=== PATIENT | male | born 1955 | race Caucasian/White ===

== ENCOUNTER → 2021-12-12 | Outpatient (CLI) | payer MEDICARE, OTHER, SELFPAY ==
[2021-12-12 09:03] LABS: Bacteria 0 SEEN /hpf (None Seen); Red Blood Cells-Urine 0 SEEN /hpf (0-5)
[2021-12-12 10:11] LABS: Color, Urine Yellow (Yellow); Glucose, Dipstick Normal (Normal); Ketone-Dipstick Negative (Negative); Leukocyte Esterase-Dipstick Negative /ul (Negative); Nitrite-Dipstick Negative (Negative); Occult Blood-Urine 10 /ul (Negative); Protein-Dipstick 15 mg/dl (Negative); Urine Bilirubin Dipstick Negative (Negative); Urine Clarity Clear (Clear); Urine Urobilinogen Normal (Normal)
[2021-12-12 10:13] LABS: Absolute Lymphocyte Count 1.29 X10^3/uL (0.83-4.51); Absolute Neutrophil Count 5.6 X10^3/uL (2.0-7.7); Basophil# 0.04 X10^3/uL; Basophil% 0.5 % (0-1); Eosinophil# 0.13 X10^3/uL; Eosinophils% 1.6 % (0-5); Hematocrit 44.3 % (40-54); Hemoglobin 14.6 g/dL (13.0-16.5); Lymphocyte # 1.29 X10^3/ul (0.83-4.51); Lymphocyte % 15.7 % (19-41); Mean Corpuscular Volume 91.2 fL (80-94); Mean Platelet Vol. 10.7 fl (6.2-12.0); Monocyte# 1.11 X10^3/uL; Monocyte% 13.5 % (0-10); NRBC Flagged by Analyzer 0 % (0-5); Neutrophil # 5.64 X10^3/uL (2.7-7.7); Neutrophil % 68.5 % (47-70); Platelet Count 351 K/mm3 (150-450); RBC Distribution Width CV 17.5 % (11.6-14.6); Red Blood Count 4.86 M/mm3 (4.6-6.2); White Blood Count 8.2 K/mm3 (4.4-11.0)
[2021-12-12 10:26] LABS: Mucous, Urine 3+ /hpf (<or=2+); Squamous Epithelial Cells - UA 0-5 SEEN /hpf (0-5); White Blood Cells 0-5 SEEN /hpf (0-5)
[2021-12-12 10:27] LABS: Erythrocyte Sedimentation Rate 9 mm/hr (0-20)
[2021-12-12 10:43] LABS: ALB/GLOB Ratio 1.1 RATIO (0.9-2.4); AST(SGOT) 13 U/L (15-37); Alanine Aminotransfer ALT/SGPT 16 U/L (16-61); Albumin, Serum 3.8 g/dL (3.2-5.0); Alkaline Phosphatase 87 U/L (45-117); Anion Gap 5 (5-15); BUN 23 mg/dL (7-18); BUN/Creat Ratio 23.4 RATIO (10-20); CPK Total, Creatine Kinase 64 U/L (39-308); Calcium,Total 9.1 mg/dL (8.5-10.1); Chloride 111 mmol/L (98-107); Creatinine, Serum 0.98 mg/dL (0.70-1.30); EST Glomerular Filtration Rate 81 mL/min (>60); Est Glom Filt Rate - Afr Amer 98 mL/min (>60); Globulin 3.4 g/dL (2.2-4.2); Glucose 90 mg/dL (74-106); Protein, Total 7.2 g/dL (6.4-8.2); Sodium Level 141 mmol/L (136-145)
[2021-12-13 17:26] LABS: Aldolase 2.6 U/L (3.3-10.3)
[2021-12-19 08:48] LABS: Anti-Nuclear Antibody Test Negative (.); Anti-dsDNA Ab 1 IU/mL (0-9)
== END | disposition home or self-care (01) ==
PROVIDERS: PCP Family Medicine
DX: L30.8 Other specified dermatitis (principal)
CPT/HCPCS: 36415; 80053; 81001; 82085; 82550; 85025; 85652; 86038; 86225

== ENCOUNTER → 2022-01-28 | Outpatient (CLI) | payer MEDICARE, OTHER, SELFPAY ==
[2022-01-28 17:58] LABS: Color, Urine Yellow (Yellow); Glucose, Dipstick Normal (Normal); Ketone-Dipstick Negative (Negative); Leukocyte Esterase-Dipstick Negative /ul (Negative); Nitrite-Dipstick Negative (Negative); Occult Blood-Urine 10 /ul (Negative); Protein-Dipstick 15 mg/dl (Negative); Urine Bilirubin Dipstick Negative (Negative); Urine Clarity Clear (Clear); Urine Urobilinogen Normal (Normal)
[2022-01-28 18:02] LABS: Absolute Neutrophil Count 11.6 X10^3/uL (2.0-7.7); Basophil# 0.08 X10^3/uL; Basophil% 0.5 % (0-1); Eosinophil# 0.25 X10^3/uL; Eosinophils% 1.7 % (0-5); Hematocrit 45.6 % (40-54); Hemoglobin 14.8 g/dL (13.0-16.5); Mean Corp Hgb Conc 32.5 g/dL (32-36); Mean Corpuscular Hgb 30.5 pg (27.0-32.0); Mean Platelet Vol. 10.8 fl (6.2-12.0); Monocyte# 1.46 X10^3/uL; Monocyte% 9.8 % (0-10); NRBC Flagged by Analyzer 0 % (0-5); Neutrophil # 11.56 X10^3/uL (2.7-7.7); Neutrophil % 77.5 % (47-70); Platelet Count 414 K/mm3 (150-450); RBC Distribution Width CV 15.3 % (11.6-14.6); RBC Distribution Width SD 53.2 fl (35.1-43.9); Red Blood Count 4.85 M/mm3 (4.6-6.2); White Blood Count 14.9 K/mm3 (4.4-11.0)
[2022-01-28 18:36] LABS: Protein, Urine (Random) 31.9 mg/dL (<11.9); Protein:Creat Ratio 173 mg/g CRE (0-200)
[2022-01-28 18:41] LABS: ALB/GLOB Ratio 1.1 RATIO (0.9-2.4); AST(SGOT) 22 U/L (15-37); Alanine Aminotransfer ALT/SGPT 26 U/L (16-61); Albumin, Serum 3.8 g/dL (3.2-5.0); Alkaline Phosphatase 91 U/L (45-117); Anion Gap 8 (5-15); BUN 22 mg/dL (7-18); BUN/Creat Ratio 22.2 RATIO (10-20); CPK Total, Creatine Kinase 78 U/L (39-308); Calcium,Total 9.4 mg/dL (8.5-10.1); Chloride 110 mmol/L (98-107); Creatinine, Serum 0.99 mg/dL (0.70-1.30); EST Glomerular Filtration Rate 80 mL/min (>60); Est Glom Filt Rate - Afr Amer 97 mL/min (>60); Globulin 3.6 g/dL (2.2-4.2); Glucose 96 mg/dL (74-106); Protein, Total 7.4 g/dL (6.4-8.2); Sodium Level 142 mmol/L (136-145)
[2022-01-31 17:54] LABS: Aldolase 3.9 U/L (3.3-10.3)
== END | disposition home or self-care (01) ==
PROVIDERS: PCP Family Medicine; Referring Provider Internal Medicine Rheumatology; Visit Provider Internal Medicine Rheumatology
DX: L30.8 Other specified dermatitis (principal); G35 Multiple sclerosis; F32.A Depression, unspecified; R51.9 Headache, unspecified
CPT/HCPCS: 36415; 80053; 81002; 82085; 82550; 82570; 84156; 85025

== ENCOUNTER 2023-11-21 08:53 | Observation (INO) | payer MEDICARE, OTHER, SELFPAY ==
[2023-11-21] VITALS (12 sets, daily range): BP systolic 127–146; BP diastolic 72–86; PULSE 68–91; RESP 14–20; TEMP 36.4–36.8; O2SAT 97–99; BMI 27.1; BMI 25.0
--- NOTE | 2023-11-21 09:07 | EKG12_ITS ---
Test Reason : CP Blood Pressure : / mmHG Vent. Rate : 083 BPM Atrial Rate : 083 BPM P-R Int : 140 ms QRS Dur : 080 ms QT Int : 372 ms P-R-T Axes : 028 -34 062 degrees QTc Int : 437 ms Normal sinus rhythm Left axis deviation Nonspecific ST and T wave abnormality Abnormal ECG Confirmed by MARCIO CARRILLO, DARLENE ([id number]), supervising editor news reel GUILLERMINA ALEXANDRE ([id number]) on 11/24/2023 9:30:30 AM Referred By: JESSICA Confirmed By:CEASAR BUCKLEY MD
[2023-11-21] MEDS: Aspirin 81 MG TAB.CHEW 324 MG PO (09:11)
--- NOTE | 2023-11-21 09:12 | RAD_ITS ---
INDICATION: chest pain EXAMINATION/TECHNIQUE: X-RAY - XR Chest 1 View COMPARISON: No relevant prior comparison study available FINDINGS: LINES/DEVICES: None. LUNGS: The lungs are well expanded. No consolidation, edema or effusion. No pneumothorax. MEDIASTINUM AND CARDIOVASCULAR STRUCTURES: Cardiac silhouette not enlarged. Central airways and mediastinal contour are unremarkable. BONES AND SOFT TISSUES: No acute abnormality. RAD/Chest 1 View (Portable) IMPRESSION: No acute pulmonary finding. Electronically Signed: Marco Mohr MD at 9:30 EDT ,
[2023-11-21 09:23] LABS: Absolute Lymphocyte Count 1.64 X10^3/uL (0.83-4.51); Absolute Neutrophil Count 6.9 X10^3/uL (2.0-7.7); Basophil# 0.07 X10^3/uL; Basophil% 0.7 % (0-1); Eosinophil# 0.25 X10^3/uL; Eosinophils% 2.5 % (0-5); Hematocrit 38.7 % (40-54); Hemoglobin 11.5 g/dL (13.0-16.5); Lymphocyte # 1.64 X10^3/ul (0.83-4.51); Lymphocyte % 16.4 % (19-41); Mean Corp Hgb Conc 29.7 g/dL (32-36); Mean Corpuscular Hgb 25.1 pg (27.0-32.0); Mean Corpuscular Volume 84.3 fL (80-94); Monocyte# 1.09 X10^3/uL; Monocyte% 10.9 % (0-10); NRBC Flagged by Analyzer 0 % (0-5); Neutrophil # 6.89 X10^3/uL (2.7-7.7); Neutrophil % 69.1 % (47-70); Platelet Count 522 K/mm3 (150-450); RBC Distribution Width SD 49.2 fl (35.1-43.9); Red Blood Count 4.59 M/mm3 (4.6-6.2)
[2023-11-21 09:33] LABS: Anion Gap 4 (5-15); BUN 20 mg/dL (7-18); BUN/Creat Ratio 18.3 RATIO (10-20); Calcium,Total 9.2 mg/dL (8.5-10.1); Chloride 112 mmol/L (98-107); Creatinine, Serum 1.09 mg/dL (0.70-1.30); EST Glomerular Filtration Rate 71 mL/min (>60); Est Glom Filt Rate - Afr Amer 86 mL/min (>60); Estimated Creatinine Clearance 66.97 ml/min; Glucose 117 mg/dL (74-106); Potassium 3.9 mmol/L (3.5-5.1); Sodium Level 141 mmol/L (136-145); Troponin-I HS (w/2H Reflex) 7 pg/mL (3.0-78.0)
--- NOTE | 2023-11-21 09:57 | EDS_ITS ---
HPI History of Present Illness Chief Complaint: Chest Pain Detail of Chief Complaint: Chest pressure yesterday and today Informant: patient and spouse/S.O. Onset/Context/Timing Onset: Today and Yesterday Activity at onset: sudden Timing: Continuous (Today) and Intermittent (Yesterday) Quality: Positive for Pressure Location: Left Chest (Radiating to left shoulder with numbness of left upper extremity) Current Severity: Mild Maximum Severity: Severe Worsened By: Nothing Relieved By: Nothing Associated Symptoms: Positive for Nausea, Diaphoresis, Dyspnea (Today), Cough (Nonproductive. Former smoker) and - (Symptoms today not yesterday); Negative for Vomiting, Fever, Lightheadedness, Acid Reflux or Palpitations Narrative Narrative: Patient is a 68-year-old male. He has a history of MS and convulsions. He presents because of chest pressure that is worse today. Episode occurred yesterday after arising from bed walking down steps in their split-level. He states yesterday it was mild. There is no associated symptoms. Today the pain is much more severe and has persisted since onset. Today's episode was associate with nausea, diaphoresis and dyspnea. He does have history of hiatal hernia. This is not like his hiatal hernia pain. He also had some problems with balance which he attributed to the fact that he has MS. He has no known history of coronary artery disease. He denies black or maroon-colored stool. He is still having discomfort but is much less. Patient denies headache, visual, ocular auditory symptoms. Patient denies abdominal pain, vomiting or diarrhea. He denies black or maroon- colored stool. Patient denies history of VTE. He denies leg pain, swelling or discoloration. He has no risk factors for VTE. Prior Similar Symptoms: No Recent Illness/Hospitalization: No CVD Risk Factors: Negative for Hypertension, Diabetes, Hypercholesterolemia, Fa reddy History 1' </=55 or Smoking (Patient has not smoked in approximately 20 years.) PE Risk Factors: Negative for Recent Travel/Surgery, Recent Immobilization, Prior DVT or PE, Cancer or OCP + Smoking + >/=35 TAD Risk Factors: Negative for Marfan's Syndrome, Hypertension or Family History [facility] Medical History (Updated 11/21/23 @ 14:[address] Felice Mcclain MD) Seizures Multiple sclerosis Allergy/AdvReac Type Severity Reaction Status Date / Time No Known Allergies Allergy Verified 11/21/23 08:56 Social History (Updated 11/21/23 @ 10:[address] Felice Mcclain MD) household members: spouse Smoking Status: Former smoker substance use type: does not use ROS ROS ED Constitutional Constitutional ED: Denies chills, fever(s), subjective, sweats or weight loss Eyes Eyes: Reports none ENT ENT ED: Denies ear pain, rhinorrhea or sore throat Cardiovascular Cardiovascular: Reports as per HPI; Denies orthopnea or paroxysmal nocturnal dyspnea Respiratory/Chest Respiratory/Chest: Reports cough and dyspnea; Denies dyspnea on exertion, orthopnea or paroxysmal nocturnal dyspnea Gastrointestinal Gastrointestinal: Reports nausea; Denies abdominal pain, constipation, diarrhea, melena or vomiting Genitourinary Genitourinary ED: Denies dysuria, hematuria or urinary frequency Musculoskeletal Musculoskeletal: Denies arthralgias, back pain, myalgias or neck pain Integumentary Denies rash Neurologic Neurologic: Reports paresthesias LUE; Denies headache(s) Psychiatric Psychiatric: Denies anxiety or depression Endocrine Endocrinology: Denies cold intolerance or heat intolerance Hematologic/Lymphatic Hematologic/Lymphatic: Denies easy bleeding or easy bruising EXAM Physical Exam Const Vital Signs: 11/21/23 08:53 11/21/23 08:59 11/21/23 09:07 Temperature 97.6 F L Temperature Source Oral Pulse Rate 82 Respiratory Rate 16 Blood Pressure 141/85 H Blood Pressure Mean 103 Pulse Ox 98 98 Oxygen Delivery Method Room Air Room Air 11/21/23 09:53 11/21/23 11:00 11/21/23 12:00 Temperature Temperature Source Pulse Rate 78 81 80 Respiratory Rate 18 18 20 H Blood Pressure 133/76 H 127/86 H 130/84 H Blood Pressure Mean 95 99 99 Pulse Ox 98 98 97 Oxygen Delivery Method Room Air Room Air Room Air 11/21/23 13:00 11/21/23 13:50 11/21/23 13:57 Temperature 98 F Temperature Source Pulse Rate 68 91 79 Respiratory Rate 17 17 18 Blood Pressure 141/78 H 141/85 H 139/80 H Blood Pressure Mean 99 103 99 Pulse Ox 97 97 97 Oxygen Delivery Method Room Air Room Air Positive well nourished and well developed General Appearance ED: well developed and NAD; Negative for pallor HEENT Reports TM's clear and moist mucous membranes normocephalic and atraumatic Tympanic Membrane ED: Yes TM's clear Eyes PERRL and EOMs intact bilaterally General Eye ED: Negative for pale conjunctiva or scleral icterus Neck no lymphadenopathy and supple Chest Wall inspection of chest normal and palpation of chest normal Resp normal respiratory effort and clear to auscultation bilaterally Cardio regular rate, regular rhythm, S1 normal heart sound, S2 normal heart sound and no murmurs GI normal to inspection, nondistended, normoactive bowel sounds, soft to palpation, non-tender, non-distended and no masses; Negative for hepatosplenomegaly Back/Spine no CVA tenderness Extremity normal to inspection Extremity Narrative: There is no asymmetry, swelling, discoloration, leg vein distention, palpable cords or tenderness along the distribution of the deep venous system. Neuro oriented x3, CN's II-XII intact bilaterally and no sensory deficits noted Sensorium / Orientation: awake Psych mental status grossly normal Skin no rashes or lesions noted and no wounds General Skin Exam: Negative for jaundice or pallor Heart Score History: Moderately Suspicious ECG: Normal Age: >/= 65 years Risk Factors: No Risk Factors Score: 3 MDM MDM MDM Narrative Medical decision making narrative: Differential diagnosis would include cardiac versus noncardiac. Noncardiac would include GI i.e. esophageal spasm, GERD, esophagitis, peptic ulcer disease, biliary disease, pulmonary disease. Patient's workup included EKG, chest x-ray and appropriate laboratory tests. Patient was treated with aspirin and states he was still complaining of a pressure sensation in his chest he received nitroglycerin sublingual. Lab Data Attestation: I reviewed the patient's lab results. Lab results narrative: CBC reveals mild anemia with normal indices. Basic metabolic panel reveals slight elevation of glucose of 117 with normal CO2 anion gap. First troponin is normal at 7. Labs: Laboratory Results - last 24 hr 11/21/23 11/21/23 09:01 11:11 WBC 10.0 RBC 4.59 L Hgb 11.5 L Hct 38.7 L MCV 84.3 MCH 25.1 L MCHC 29.7 L RDW Std Deviation 49.2 H RDW Coeff of Micheal 16.0 H Plt Count 522 H MPV 10.0 Immature Gran % (Auto) 0.400 Neut % (Auto) 69.1 Lymph % (Auto) 16.4 L [place]yer % (Auto) 10.9 H Eos % (Auto) 2.5 Baso % (Auto) 0.7 Absolute Neuts (auto) 6.9 Absolute Lymphs (auto) 1.64 Nucleated RBC % 0 Sodium 141 Potassium 3.9 Chloride 112 H Carbon Dioxide 25.0 Anion Gap 4 L BUN 20 H Creatinine 1.09 Estim Creat Clear Calc 66.97 Est GFR (MDRD) Af Amer 86 Est GFR (MDRD) Non-Af 71 BUN/Creatinine Ratio 18.3 Glucose 117 H Calcium 9.2 Troponin I High Sens 7 10 Radiography Chest X-Ray - ED: 1 View and Read by ED Physician (2 view chest x-ray was independent reviewed interpreted by me at 0922 as negative for any acute process. Cardiac silhouette and size normal. Lung parenchyma normal. Hilum is normal. Osseous structures unremarkable.) Diagnostic Testing: Clinical Impression(s) from Imaging Studies Chest X-Ray 11/21/23 09:12 IMPRESSION: No acute pulmonary finding. Electronically Signed: Marco Mohr MD at 9:30 EDT Reading Location ID and State: [facility] / ID Tel , Service support , Management Discussion w/another healthcare provider: Hospitalist (History and physical was relayed to the hospitalist, Dr. Irineo Staples. PCU ops) and Rewind Operator (Spoke with cardiology Dr. Mathias. As specifically outpatient workup versus inpatient. He looked at his schedule. He states he would not be able to get him in first part of the week and recommended PCU observation.) Discharge Plan Triage Chief Complaint: Chest Pain ED Provider: Felice Mcclain Dx/Rx/DC Orders Clinical Impression: Chest tightness, Elevated BP without diagnosis of hypertension, Hx of multiple sclerosis Primary Care Provider: Wisam Simons Referrals: Wisam Simons MD [Primary Care Provider] - Print Language: Salvadorean Disposition Disposition: Acute [facility]
[2023-11-21 11:12] LABS: Reflex Troponin-HS? (from REC) Y
[2023-11-21 11:36] LABS: Troponin-I HS 10 pg/mL (3.0-78.0)
--- NOTE | 2023-11-21 14:02 | HP.PCM.HOS_ITS ---
HPI - General General Date of Admission: 11/21/23 Date of Service: 11/21/23 Chief Complaint: Chest pain HPI Narrative JUANITA AJY, is a 68 M who presented to [facility] ED on 11/21/2023 with chest pain. Patient has history of MS diagnosed in 2018, follows with neurology at [facility]. Notes that his primary MS symptom is difficulty with balance but he otherwise has minimal symptoms due to his MS. He otherwise has minimal past medical history. Stated that he had an episode of chest pressure yesterday that occurred after waking up and walking down the steps in his split-level home. The pain subsided fairly quickly and he had no associated symptoms. Today, he had pain in the left chest along with left arm pain that was more severe and more persistent than yesterday, so he came in for further evaluation. He did report some nausea, diaphoresis and dyspnea with today's episode. In the ED, was noted to be hemodynamically stable on room air. EKG showed normal sinus rhythm, no ST changes. Troponins were negative x 2. Lab workup showed a mild anemia with hemoglobin 11.5, down from 14 back in 2021 (last known value), but was otherwise unremarkable. Chest x-ray was unremarkable. Given his concerning symptoms and no prior cardiac workup, hospitalist was contacted for admission. I saw patient at bedside in the ED. Patient was sitting up comfortably in bed, conversing normally, in no acute distress. He reported that the chest pain had completely subsided by this time. He denied any symptoms at this time. He was concerned by these episodes and unsure of what else could be causing the pain if not heart related. He denies any recent excessive physical activity or known muscle strains. Patient lives at home with his and has good functional status. No other acute concerns at this time. [facility] Medical History (Updated 11/21/23 @ 22:[address] Raz Staples, DO) Seizures Multiple sclerosis Home Medications ?Medication ?Instructions ?Recorded ?Last Taken ?Type citalopram 40 mg tablet 40 mg PO DAILY depression 11/21/23 11/21/23 History dimethyl fumarate 240 mg 240 mg PO BID ms 11/21/23 11/21/23 History capsule,delayed release zonisamide 100 mg capsule 200 mg PO .am seizures 11/21/23 11/21/23 History zonisamide 100 mg capsule 300 mg PO QHS seizures 11/21/23 Unknown History Allergy/AdvReac Type Severity Reaction Status Date / Time No Known Allergies Allergy Verified 11/21/23 08:56 Social History (Updated 11/21/23 @ 15:16 by aMry Hughes) household members: spouse Smoking Status: Former smoker substance use type: does not use ROS Constitutional Constitutional: Denies chills, fatigue, fever(s) or weakness Eyes Eyes: Denies change in vision Cardiovascular Cardiovascular: Denies chest pain, edema, lightheadedness, palpitations or rapid heart rate Respiratory/Chest Respiratory/Chest: Denies shortness of breath at rest, shortness of breath with exertion or wheezing Gastrointestinal Gastrointestinal: Denies abdominal pain Musculoskeletal Musculoskeletal: Denies arthralgias or myalgias Neurologic Neurologic: Denies dizziness, focal weakness or headache(s) Vital Signs Vital Signs Vital Signs: 11/21/23 08:53 11/21/23 08:59 11/21/23 09:07 Temperature 97.6 F L Temperature Source Oral Pulse Rate 82 Respiratory Rate 16 Blood Pressure 141/85 H Blood Pressure Mean 103 Pulse Ox 98 98 Oxygen Delivery Method Room Air Room Air 11/21/23 09:53 11/21/23 11:00 11/21/23 12:00 Temperature Temperature Source Pulse Rate 78 81 80 Respiratory Rate 18 18 20 H Blood Pressure 133/76 H 127/86 H 130/84 H Blood Pressure Mean 95 99 99 Pulse Ox 98 98 97 Oxygen Delivery Method Room Air Room Air Room Air 11/21/23 13:00 11/21/23 13:50 11/21/23 13:57 Temperature 98 F Temperature Source Pulse Rate 68 91 79 Respiratory Rate 17 17 18 Blood Pressure 141/78 H 141/85 H 139/80 H Blood Pressure Mean 99 103 99 Pulse Ox 97 97 97 Oxygen Delivery Method Room Air Room Air Weight Weight: 85.8 kg Body Mass Index (BMI) 27.1 Physical Exam Const alert, oriented x3, no apparent distress, average body habitus, healthy appearing and well nourished Constitutional Narrative: Pleasant elderly male, sitting up comfortably in bed, conversing normally, in no acute distress. General Appearance: cooperative, comfortable, well kempt and well developed HEENT normocephalic, head/scalp atraumatic, hearing grossly normal bilaterally, nasal mucous membranes and turbinates normal and moist oral mucous membranes Eyes PERRL, EOMs intact bilaterally and conjunctivae normal Neck full ROM Chest inspection of chest normal Resp normal respiratory effort, normal air movement, no use of accessory muscles and clear to auscultation bilaterally Cardio regular rate, regular rhythm, no murmurs and peripheral pulses 2+ throughout GI normal to inspection, nondistended, normoactive bowel sounds, soft to palpation, non-tender and non-distended Back/Spine normal ROM Extremity normal to inspection, full ROM and no pedal edema Skin no rashes or lesions noted Neuro moves all extremities and no focal motor deficits Speech: speech normal Psych mental status grossly normal Results Lab / Micro Data 11/21/23 09:01 11/21/23 09:01 Labs: Laboratory Results - last 24 hr 11/21/23 09:01: WBC 10.0, RBC 4.59 L, Hgb 11.5 L, Hct 38.7 L, MCV 84.3, MCH 25.1 L, MCHC 29.7 L, RDW Std Deviation 49.2 H, RDW Coeff of Micheal 16.0 H, Plt Count 522 H, MPV 10.0, Immature Gran % (Auto) 0.400, Neut % (Auto) 69.1, Lymph % (Auto) 16.4 L, [place] % (Auto) 10.9 H, Eos % (Auto) 2.5, Baso % (Auto) 0.7, Absolute Neuts (auto) 6.9, Absolute Lymphs (auto) 1.64, Nucleated RBC % 0, Sodium 141, Potassium 3.9, Chloride 112 H, Carbon Dioxide 25.0, Anion Gap 4 L, BUN 20 H, Creatinine 1.09, Estim Creat Clear Calc 66.97, Est GFR (MDRD) Af Amer 86, Est GFR (MDRD) Non-Af 71, BUN/Creatinine Ratio 18.3, Glucose 117 H, Calcium 9.2, Troponin I High Sens 7 11/21/23 11:11: Troponin I High Sens 10 Imaging Radiology Impression Chest X-Ray 11/21/23 09:12 IMPRESSION: No acute pulmonary finding. Electronically Signed: Marco Mohr MD at 9:30 EDT Reading Location ID and State: [facility] / [place] Tel , Service support , Assessment & Plan Assessment/Plan (1) Chest pain: (2) Anemia: PLAN: Plan Patient is a 68-year-old male who presented [facility] ED on 11/21/2023 with chest pain. 1. Chest pain, ACS rule out ? Admit under observation status to PCU. EKG in ED showed normal sinus rhythm, no ST changes. Troponins negative x 2. Chest x-ray normal. Hemodynamically stable on room air. Given 1 dose of aspirin 325 mg in ED. Echo and stress test ordered for further evaluation. Lipid panel, A1c and TSH ordered. Will start aspirin 81 mg daily and atorvastatin 80 mg daily for now, can discontinue if no acute findings on further testing. 2. Mild anemia ? Hemoglobin 11.5 on admit. Last hemoglobin values were around 14 back in 2021. MCV 84. Patient denied any dark or bloody bowel movements. Iron studies with ferritin, B12 and folate ordered for further evaluation. Follow-up a.m. CBC. 3. History of multiple sclerosis ? Stable, not in acute exacerbation. Follows with neurology with [facility]. Continue home dimethyl fumarate and zonisamide. 4. Depression ? Stable. Continue home citalopram. DVT prophylaxis: Lovenox CODE STATUS: Full code, verified Expected disposition: Home, 1 to 2 days Total clinical time spent by myself addressing the patient's medical issues, reviewing all the data, and collaborating with patient's care team: 55 minutes. Charges/Coding Visit Charges Inpatient E&M: 22595 Init Hosp L2
--- NOTE | 2023-11-21 14:06 | ECHOD_ITS ---
Reason For Study: CHEST PAIN Procedure This was a 2D Doppler, Color Flow transthoracic echocardiogram. The study was technically difficult. Definity deferred due to off axis windows. Exam performed portable in patient room. Left Ventricle Normal LV size. The estimated ejection fraction is 70 %. No evidence for diastolic dysfunction. No regional wall motion abnormalities noted. Right Ventricle Normal RV size. Normal systolic function. Atria The left and right atria are normal. No doppler evidence for ASD. Mitral Valve There is no mitral valve stenosis. No mitral valve insufficiency. Tricuspid Valve There is no tricuspid stenosis. No tricuspid valve insufficiency. Unable to estimate RV systolic pressure due to inadequate jet, pulmonary artery pressure probably normal. Aortic Valve Trisinus/trileaflet aortic valve. There is no aortic stenosis. No aortic valve insufficiency. Pulmonic Valve There is no pulmonic valvular stenosis. No pulmonic valve insufficiency. Great Vessels Normal aortic root. Pericardium/Pleural No pericardial effusion. MMode/2D Measurements & Calculations LVIDd: 4.7 cm IVSd: 1.1 cm Ao root diam: 4.4 cm LVIDs: 3.0 cm LVPWd: 1.3 cm FS: 34.9 % LAV(MOD-sp4): 27.4 ml LA A4 area: 11.9 cm2 LA dimension(2D): 3.7 cm RA A4 area: 20.9 cm2 Time Measurements MV dec time: 0.25 sec Doppler Measurements & Calculations MV E max arpit: 60.2 cm/sec Lat Peak E' Arpit: 9.2 cm/sec Med Peak E' Arpit: 8.2 cm/sec MV A max arpit: 69.0 cm/sec E/E' lat: 6.6 E/E' med: 7.4 MV E/A: 0.87 MV V2 max: 81.5 cm/sec MV dec slope: 241.2 cm/sec2 Ao V2 max: 79.0 cm/sec MV max P.7 mmHg Ao max P.5 mmHg MV V2 mean: 43.7 cm/sec Ao V2 mean: 45.8 cm/sec MV mean P.94 mmHg Ao mean P.0 mmHg MV V2 VTI: 24.2 cm Ao V2 VTI: 16.4 cm AV (velocity ratio): 1.1 LV V1 max: 88.5 cm/sec PA V2 max: 71.4 cm/sec LV V1 max P.1 mmHg PA V2 mean: 52.2 cm/sec LV V1 mean P.4 mmHg LV V1 mean: 54.4 cm/sec LV V1 VTI: 18.4 cm ECHO/Echo Complete Interpretation Summary The estimated ejection fraction is 70 %. No evidence for diastolic dysfunction. Ordering Physician: Raz Staples Referring Physician: POWER MONROE Performed By: Jacinda Fuchs RCS
[2023-11-21 14:58] LABS: Hemoglobin A1c 5.2 % (3.8-5.6)
[2023-11-21 15:00] LABS: Thyroid Stim Hormone (TSH) 1.31 uIU/mL (0.358-3.74)
--- NOTE | 2023-11-21 15:22 | EKG12_ITS ---
Test Reason : Blood Pressure : / mmHG Vent. Rate : 071 BPM Atrial Rate : 071 BPM P-R Int : 158 ms QRS Dur : 080 ms QT Int : 402 ms P-R-T Axes : 042 -30 033 degrees QTc Int : 436 ms Normal sinus rhythm Left axis deviation Abnormal ECG When compared with ECG of 21-NOV-2023 08:55, MANUAL COMPARISON REQUIRED, DATA IS UNCONFIRMED Confirmed by SIMI CARRILLO, NEY ([id number]), editor & co founder YOVANI YANEZ ([id number]) on 11/24/2023 2:32:18 PM Referred By: RANDY Confirmed By:NEY BELCHER MD
[2023-11-21] MEDS: ZONISAMIDE 100 MG CAPSULE 300 MG PO (22:09)
[2023-11-21] MEDS: Atorvastatin Calcium 80 MG Tablet PO (22:09)
[2023-11-21 23:32] LABS: Ferritin 14 ng/mL (26-388); Iron 27 ug/dL (65-175); Iron Binding Capacity,Total 437 ug/dL (250-450); PERCENT IRON SATURATION 6.2 % (15.0-55.0)
[2023-11-22 03:05] VITALS: BP 134/80; PULSE 66; RESP 16; TEMP 36.6; O2SAT 98
[2023-11-22 04:51] LABS: Hemoglobin 11.4 g/dL (13.0-16.5); Mean Corp Hgb Conc 30.8 g/dL (32-36); Mean Corpuscular Volume 84.3 fL (80-94); Mean Platelet Vol. 9.7 fl (6.2-12.0); POSITIVE MORPHOLOGY YES; Platelet Count 492 K/mm3 (150-450); RBC Distribution Width CV 15.9 % (11.6-14.6); RBC Distribution Width SD 48.7 fl (35.1-43.9); Red Blood Count 4.39 M/mm3 (4.6-6.2); White Blood Count 8.1 K/mm3 (4.4-11.0)
[2023-11-22 05:16] LABS: Anion Gap 2 (5-15); BUN 19 mg/dL (7-18); BUN/Creat Ratio 19.9 RATIO (10-20); Calcium,Total 9.1 mg/dL (8.5-10.1); Chloride 109 mmol/L (98-107); Cholesterol 174 mg/dL (200); Creatinine, Serum 0.96 mg/dL (0.70-1.30); EST Glomerular Filtration Rate 83 mL/min (>60); Est Glom Filt Rate - Afr Amer 101 mL/min (>60); Estimated Creatinine Clearance 80.83 ml/min; Glucose 105 mg/dL (74-106); High Density Lipoprotein 45 mg/dL; Sodium Level 138 mmol/L (136-145); Triglycerides 94 mg/dL; Very Low Density Lipoprotein 19 mg/dL (5-40)
[2023-11-22 05:24] LABS: Scan Indicated on CBC? Y/N YES- FLAGS NOTED
[2023-11-22 05:25] LABS: Differential Comment SCANNED
--- NOTE | 2023-11-22 05:55 | EKG12_ITS ---
Test Reason : AM EKG Blood Pressure : / mmHG Vent. Rate : 062 BPM Atrial Rate : 062 BPM P-R Int : 122 ms QRS Dur : 082 ms QT Int : 432 ms P-R-T Axes : 000 -28 027 degrees QTc Int : 438 ms Normal sinus rhythm Normal ECG When compared with ECG of 21-NOV-2023 15:22, MANUAL COMPARISON REQUIRED, DATA IS UNCONFIRMED Confirmed by SIMI CARRILLO, NEY ([id number]), editor producer GUILLERMINA ALEXANDRE ([id number]) on 11/24/2023 2:18:26 PM Referred By: Confirmed By:NEY BELCHER MD
[2023-11-22 06:00] VITALS: BP 133/76; PULSE 62; RESP 16; TEMP 36.4; O2SAT 97
[2023-11-22] MEDS: Aspirin 81 MG TAB.CHEW PO (06:16)
[2023-11-22 10:00] VITALS: BP 123/96; PULSE 74; RESP 18; TEMP 36.6; O2SAT 97
[2023-11-22] MEDS: 0.9% Saline Lock 10 ML Syringe IV ×2 (10:17→17:22)
[2023-11-22] MEDS: Citalopram 40 MG TABLET PO (10:19)
[2023-11-22] MEDS: ZONISAMIDE 100 MG CAPSULE 200 MG PO (10:20)
[2023-11-22] MEDS: Acetaminophen 325 MG Tablet 650 MG PO (12:16)
[2023-11-22] MEDS: DIMETHYL FUMARATE 240 MG CAPSULE.DR PO ×2 (12:17→20:43)
--- NOTE | 2023-11-22 12:25 | STRESSREP_ITS ---
Stress Test Report Date: 11/22/2023 Procedure: Pharmacologic stress nuclear imaging study Indications: Chest pain Consent: Per the patient Procedure: The patient underwent pharmacologic (Regadenoson) evaluation with a peak heart rate of 85 beats per minute (55%predicted maximal heart rate) and a peak blood pressure of 122/80 mmHg. The baseline ECG demonstrated normal sinus rhythm. EKG during lexiscan infusion revealed no significant ischemic changes. EKG post infusion revealed no significant ischemic changes [There were no cardiac dysrhythmias pretest, during pharmacologic infusion, or recovery]. [There was no complaint of chest discomfort during pharmacologic infusion or recovery]. The examination was discontinued secondary to completion of protocol. Impression: 1. Lexiscan stress test test is negative for Lexiscan infusion induced EKG changes of ischemia. 2. Lexiscan stress test test is negative for Lexiscan infusion induced chest pain. 3. Results of the nuclear portion of the test is as below Myocardial perfusion imaging study: Technique: The patient was injected with 13 millicuries of technetium 99m Cardiolite and subsequently rest SPECT Cardiolite nuclear imaging was obtained in the horizontal long, vertical long, and short axis views. The patient underwent pharmacologic [Regadenoson 0.4mg] evaluation. Please see above for details. The patient was injected with 40.2 millicuries of technetium 99m Cardiolite and subsequently stress SPECT Cardiolite nuclear imaging was obtained in the horizontal long, vertical long, and short axis views. A gated Cardiolite study at peak stress was obtained. Interpretation: Rest and stress SPECT Cardiolite nuclear imaging status post realignment, normalization, and attenuation correction demonstrate normal uptake at rest. On the stress images there is mild decrease in the radioisotope uptake in the septum, apex and distal anterior wall. These findings are suggestive of ischemia involving these territories. Gated images reveal no significant regional wall motion abnormalities. The reported LVEF is 64%. Impression: 1. There is evidence of ischemia involving the septum, distal anterior wall and apex. 2. Estimated ejection fraction is 64%. This note was generated with [employer] software. It may contain incorrect words, spelling, and punctuation that were not noted in checking the note before signing.
--- NOTE | 2023-11-22 13:39 | PCM.PN.HOSP ---
Subjective Subjective Doing well, no issues overnight Objective Data Objective Data Vital Signs: Vital Signs Temp Pulse Resp BP Pulse Ox O2 Del Method 97.8 F 74 18 123/96 H 97 Room Air 11/22/23 10:00 11/22/23 10:00 11/22/23 10:00 11/22/23 10:00 11/22/23 10:00 11/22/23 10:00 Oxygen Delivery Method Room Air Weight: 184 lb 11.958 oz Body Mass Index (BMI) 25.0 Intake & Output: Intake and Output for Last 24 Hours 11/21/23 11/22/23 11/23/23 03:59 03:59 03:59 Intake Total 695 / 695 0 / 0 Balance 695 / 695 0 / 0 Lab / Micro Data 11/22/23 04:40 11/22/23 04:40 Labs: Laboratory Results - last 24 hr 11/21/23 09:01: Hemoglobin A1c 5.2, Iron 27 L, TIBC 437, Iron Saturation 6.2 L, Ferritin 14 L, Folate 5.60, TSH 1.31 11/22/23 04:40: WBC 8.1, RBC 4.39 L, Hgb 11.4 L, Hct 37.0 L, MCV 84.3, MCH 26.0 L, MCHC 30.8 L, RDW Std Deviation 48.7 H, RDW Coeff of Micheal 15.9 H, Plt Count 492 H, MPV 9.7, Differential Comment SCANNED, Sodium 138, Potassium 4.0, Chloride 109 H, Carbon Dioxide 27.0, Anion Gap 2 L, BUN 19 H, Creatinine 0.96, Estim Creat Clear Calc 80.83, Est GFR (MDRD) Af Amer 101, Est GFR (MDRD) Non-Af 83, BUN/Creatinine Ratio 19.9, Glucose 105, Calcium 9.1, Triglycerides 94, Cholesterol 174, LDL Cholesterol 110, VLDL Cholesterol 19, HDL Cholesterol 45 Radiography Diagnostic Testing: Radiology Impression Echocardiogram 11/21/23 14:06 Interpretation Summary The estimated ejection fraction is 70 %. No evidence for diastolic dysfunction. Ordering Physician: Raz Staples Referring Physician: POWER MONROE Performed By: Jacinda Fuchs RCS Physical Exam Narrative General: Alert, Oriented x3, Cooperative, No apparent distress HEENT: Atraumatic, PERRLA, EOMI, Normocephalic Oral: Moist Mucosa Neck: Supple, No JVD Lungs: Diminished, Normal air movement, No rhonchi, No wheeze, No rales Cardiovascular: Regular rate, Regular Rhythm, Normal S1, Normal S2, No murmurs Abdomen: Soft, Non Tender, Non-Distended, No Hepato-splenomegaly Extremities: No edema, Capillary Refill Less than 3 Seconds Skin: No rashes, No breakdown Musculoskeletal: No Tenderness to Palpation of Joints or Extremities Neurological: No focal neurological deficits, Motor Exam 5/5 strength throughout, Sensory exam intact to light touch and pain Psych/Mental Status: Normal Affect, Appropriate Assessment & Plan Assessment/Plan (1) Chest pain: PLAN: Plan 1. Chest pain ? Echo was unremarkable however stress test showed some mild ischemia ? Plan for cardiac cath on Friday per cardiology ? Given this plus his LDL of 110 will start on a statin 2. Iron deficiency anemia ? Hemoglobin was 11.5 on admission iron studies demonstrated iron deficiency anemia ? Will give a dose of Venofer and transition to oral medications 3. Multiple sclerosis ? Stable ? Continue with home medications 4. Anxiety/depression ? Stable ? Continue with home medications DVT: Lovenox Charges/Coding Visit Charges Inpatient E&M: 72191 Subs Hosp L2
--- NOTE | 2023-11-22 14:44 | CASEMGMT ---
RN TANIA NOTE: Intro role of CM to patient and RUFF form explained re: Observation status for treatment of chest pain, ACS rule out.? Explained hospitalization will be paid per?his insurance policy for Outpatient billing?and condition will continue to be evaluated for Inpt necessity. Also let pt know that [facility] sends paper in the billing packet with their phone number if questions arise. Discussed Pharmacy section of RUFF form and self administered medication guideline.? Pt verbalizes understanding and does not have further questions. ?Form signed, copy made and placed in chart, and original given to pt. Belen HAMMONDSN RN CM
--- NOTE | 2023-11-22 14:47 | PCM.CONS.C ---
Assessment & Plan Assessment/Plan (1) Chest pain: QUALIFIERS: Chest pain type: unspecified Qualified Code(s): R07.9 - Chest pain, unspecified PLAN: Abnormal stress test. Will proceed with coronary angiography on Friday. Risks and benefits explained to the patient in detail. Patient understands and wishes to proceed. HPI Consult Data Date of Consult: 11/22/23 HPI Narrative Reason for Consultation: Chest pain, abnormal stress test HPI Narrative: JUANITA JAY, is a 68 M who presents with left arm and retrosternal chest pain with exertion. Stress test revealed possible ischemia involving the LAD territory. Patient is currently stable and chest pain-free. [facility] Medical History (Updated 11/22/23 @ 14:[address] Merlin Mathias MD) Seizures Multiple sclerosis Home Medications ?Medication ?Instructions ?Recorded ?Last Taken ?Type citalopram 40 mg tablet 40 mg PO DAILY depression 11/21/23 11/21/23 History dimethyl fumarate 240 mg 240 mg PO BID ms 11/21/23 11/21/23 History capsule,delayed release zonisamide 100 mg capsule 200 mg PO .am seizures 11/21/23 11/21/23 History zonisamide 100 mg capsule 300 mg PO QHS seizures 11/21/23 Unknown History Allergy/AdvReac Type Severity Reaction Status Date / Time No Known Allergies Allergy Verified 11/21/23 08:56 Social History (Updated 11/21/23 @ 15:16 by Mary Hughes) household members: spouse Smoking Status: Former smoker substance use type: does not use Physical Exam Const alert and oriented x3 Eyes no scleral icterus Resp normal respiratory effort Cardio regular rate Skin no rashes or lesions noted Psych mental status grossly normal Risk Stratification Risk Stratification Applicable: No Charges/Coding Visit Charges Inpatient E&M: 00751 Init Hosp L2 Objective Data Vital Signs: Vital Signs Temp Pulse Resp BP Pulse Ox O2 Del Method 97.8 F 74 18 123/96 H 97 Room Air 11/22/23 10:00 11/22/23 10:00 11/22/23 10:00 11/22/23 10:00 11/22/23 10:00 11/22/23 10:00 Oxygen Delivery Method Room Air Weight: 184 lb 11.958 oz Body Mass Index (BMI) 25.0 Intake & Output: Intake and Output for Last 24 Hours 11/20/23 11/21/23 11/22/23 23:59 23:59 23:59 Intake Total 575 / 695 370 / 370 Balance 575 / 695 370 / 370 Lab / Micro Data 11/22/23 04:40 11/22/23 04:40 Labs: Laboratory Results - last 24 hr 11/21/23 09:01: Hemoglobin A1c 5.2, Iron 27 L, TIBC 437, Iron Saturation 6.2 L, Ferritin 14 L, Folate 5.60, TSH 1.31 11/22/23 04:40: WBC 8.1, RBC 4.39 L, Hgb 11.4 L, Hct 37.0 L, MCV 84.3, MCH 26.0 L, MCHC 30.8 L, RDW Std Deviation 48.7 H, RDW Coeff of Micheal 15.9 H, Plt Count 492 H, MPV 9.7, Differential Comment SCANNED, Sodium 138, Potassium 4.0, Chloride 109 H, Carbon Dioxide 27.0, Anion Gap 2 L, BUN 19 H, Creatinine 0.96, Estim Creat Clear Calc 80.83, Est GFR (MDRD) Af Amer 101, Est GFR (MDRD) Non-Af 83, BUN/Creatinine Ratio 19.9, Glucose 105, Calcium 9.1, Triglycerides 94, Cholesterol 174, LDL Cholesterol 110, VLDL Cholesterol 19, HDL Cholesterol 45 Cardiology Labs/Tests 11/21/23 09:01: Hemoglobin A1c 5.2, Iron 27 L, TIBC 437, Iron Saturation 6.2 L, Ferritin 14 L 11/22/23 04:40: WBC 8.1, RBC 4.39 L, Hgb 11.4 L, Hct 37.0 L, MCV 84.3, MCH 26.0 L, MCHC 30.8 L, Plt Count 492 H, MPV 9.7, Sodium 138, Potassium 4.0, Chloride 109 H, Carbon Dioxide 27.0, Anion Gap 2 L, BUN 19 H, Creatinine 0.96, Est GFR (MDRD) Af Amer 101, Est GFR (MDRD) Non-Af 83, BUN/Creatinine Ratio 19.9, Glucose 105, Calcium 9.1, Triglycerides 94, Cholesterol 174, LDL Cholesterol 110, VLDL Cholesterol 19, HDL Cholesterol 45 Rhythm: EKG: ECHO: Stress Test: Cardiac Cath: PCI: CT Surgery: Holter monitor: EPS: PPM: CXR: Chest CT Scan: Radiography Diagnostic Testing: Radiology Impression Echocardiogram 11/21/23 14:06 Interpretation Summary The estimated ejection fraction is 70 %. No evidence for diastolic dysfunction. Ordering Physician: Raz Staples Referring Physician: POWER MONROE Performed By: Jacinda Fuchs RCS
[2023-11-22] MEDS: Sodium Ferric Gluconat/Sucrose 250 MG in 0.9% Normal Saline (250mL Bag) 250 ML 135 MG IV (14:56)
[2023-11-22 15:00] VITALS: BP 133/74; PULSE 65; RESP 16; TEMP 36.5; O2SAT 97
[2023-11-22] MEDS: Ferrous Gluconate 324 MG Tablet PO (17:22)
[2023-11-22] MEDS: Atorvastatin Calcium 80 MG Tablet PO (20:43)
[2023-11-22] MEDS: ZONISAMIDE 100 MG CAPSULE 300 MG PO (20:43)
[2023-11-22 21:05] VITALS: BP 121/74; PULSE 68; RESP 18; TEMP 36.9; O2SAT 97
[2023-11-23 03:05] VITALS: BP 137/78; PULSE 68; RESP 16; TEMP 36.6; O2SAT 100
[2023-11-23 05:03] VITALS: BP 141/69; PULSE 76; RESP 20; TEMP 36.4; O2SAT 99
--- NOTE | 2023-11-23 05:05 | EKG12_ITS ---
Test Reason : cp Blood Pressure : / mmHG Vent. Rate : 069 BPM Atrial Rate : 069 BPM P-R Int : 148 ms QRS Dur : 082 ms QT Int : 418 ms P-R-T Axes : 046 -32 022 degrees QTc Int : 447 ms Normal sinus rhythm Left axis deviation Abnormal ECG When compared with ECG of 22-NOV-2023 05:23, MANUAL COMPARISON REQUIRED, DATA IS UNCONFIRMED Confirmed by SIMI CARRILLO, NEY ([id number]), assistant editor GUILLERMINA ALEXANDRE ([id number]) on 11/24/2023 2:17:40 PM Referred By: Confirmed By:NEY BELCHER MD
[2023-11-23 06:03] LABS: Absolute Lymphocyte Count 1.33 X10^3/uL (0.83-4.51); Absolute Neutrophil Count 4.8 X10^3/uL (2.0-7.7); Basophil# 0.07 X10^3/uL; Basophil% 0.9 % (0-1); Eosinophil# 0.31 X10^3/uL; Eosinophils% 4.2 % (0-5); Hematocrit 37.7 % (40-54); Hemoglobin 11.5 g/dL (13.0-16.5); Lymphocyte # 1.33 X10^3/ul (0.83-4.51); Lymphocyte % 17.9 % (19-41); Mean Corp Hgb Conc 30.5 g/dL (32-36); Mean Corpuscular Hgb 25.6 pg (27.0-32.0); Mean Corpuscular Volume 83.8 fL (80-94); Mean Platelet Vol. 9.8 fl (6.2-12.0); Monocyte# 0.91 X10^3/uL; Monocyte% 12.3 % (0-10); NRBC Flagged by Analyzer 0 % (0-5); Neutrophil # 4.78 X10^3/uL (2.7-7.7); Neutrophil % 64.6 % (47-70); Platelet Count 489 K/mm3 (150-450); White Blood Count 7.4 K/mm3 (4.4-11.0)
[2023-11-23 07:55] VITALS: BP 129/78; PULSE 78; RESP 16; TEMP 36.7; O2SAT 98
[2023-11-23] MEDS: Ferrous Gluconate 324 MG Tablet PO ×2 (07:58→16:51)
[2023-11-23] MEDS: Aspirin 81 MG TAB.CHEW PO (07:58)
[2023-11-23] MEDS: 0.9% Saline Lock 10 ML Syringe IV (07:58)
[2023-11-23 08:20] LABS: Anion Gap 6 (5-15); BUN 16 mg/dL (7-18); BUN/Creat Ratio 17.2 RATIO (10-20); Calcium,Total 8.9 mg/dL (8.5-10.1); Chloride 114 mmol/L (98-107); Creatinine, Serum 0.93 mg/dL (0.70-1.30); EST Glomerular Filtration Rate 86 mL/min (>60); Est Glom Filt Rate - Afr Amer 104 mL/min (>60); Estimated Creatinine Clearance 83.44 ml/min; Glucose 97 mg/dL (74-106); Potassium 3.8 mmol/L (3.5-5.1); Sodium Level 142 mmol/L (136-145)
[2023-11-23] MEDS: DIMETHYL FUMARATE 240 MG CAPSULE.DR PO ×2 (09:42→20:44)
[2023-11-23] MEDS: Enoxaparin 40 MG/0.4 ML Syringe SC (09:43)
[2023-11-23] MEDS: ZONISAMIDE 100 MG CAPSULE 200 MG PO (09:44)
[2023-11-23] MEDS: Citalopram 40 MG TABLET PO (09:45)
--- NOTE | 2023-11-23 09:46 | PN.HOSP_ITS ---
Subjective Subjective Had some left arm pain again last night otherwise doing well Objective Data Objective Data Vital Signs: Vital Signs Temp Pulse Resp BP Pulse Ox O2 Del Method 98.0 F 78 16 129/78 H 98 Room Air 11/23/23 07:55 11/23/23 07:55 11/23/23 07:55 11/23/23 07:55 11/23/23 07:55 11/23/23 08:00 Oxygen Delivery Method Room Air Weight: 184 lb 11.958 oz Body Mass Index (BMI) 25.0 Intake & Output: Intake and Output for Last 24 Hours 11/22/23 11/23/23 11/24/23 03:59 03:59 03:59 Intake Total 695 / 695 1390 / 1390 120 / 120 Balance 695 / 695 1390 / 1390 120 / 120 Lab / Micro Data 11/23/23 05:35 11/23/23 05:35 Labs: Laboratory Results - last 24 hr 11/23/23 05:35: WBC 7.4, RBC 4.50 L, Hgb 11.5 L, Hct 37.7 L, MCV 83.8, MCH 25.6 L, MCHC 30.5 L, RDW Std Deviation 49.0 H, RDW Coeff of Micheal 16.0 H, Plt Count 489 H, MPV 9.8, Immature Gran % (Auto) 0.100, Neut % (Auto) 64.6, Lymph % (Auto) 17.9 L, [place] % (Auto) 12.3 H, Eos % (Auto) 4.2, Baso % (Auto) 0.9, Absolute Neuts (auto) 4.8, Absolute Lymphs (auto) 1.33, Nucleated RBC % 0, Sodium 142, Potassium 3.8, Chloride 114 H, Carbon Dioxide 22.0, Anion Gap 6, BUN 16, Creatinine 0.93, Estim Creat Clear Calc 83.44, Est GFR (MDRD) Af Amer 104, Est GFR (MDRD) Non-Af 86, BUN/Creatinine Ratio 17.2, Glucose 97, Calcium 8.9 Physical Exam Narrative General: Alert, Oriented x3, Cooperative, No apparent distress HEENT: Atraumatic, PERRLA, EOMI, Normocephalic Oral: Moist Mucosa Neck: Supple, No JVD Lungs: Diminished, Normal air movement, No rhonchi, No wheeze, No rales Cardiovascular: Regular rate, Regular Rhythm, Normal S1, Normal S2, No murmurs Abdomen: Soft, Non Tender, Non-Distended, No Hepato-splenomegaly Extremities: No edema, Capillary Refill Less than 3 Seconds Skin: No rashes, No breakdown Musculoskeletal: No Tenderness to Palpation of Joints or Extremities Neurological: No focal neurological deficits, Motor Exam 5/5 strength throughout, Sensory exam intact to light touch and pain Psych/Mental Status: Normal Affect, Appropriate Assessment & Plan Assessment/Plan (1) Chest pain: QUALIFIERS: Chest pain type: unspecified Qualified Code(s): R07.9 - Chest pain, unspecified PLAN: Plan 1. Chest pain ? Echo was unremarkable however stress test showed some mild ischemia ? Plan for cardiac cath on Friday per cardiology ? Given this plus his LDL of 110 will start on a statin 2. Iron deficiency anemia ? Hemoglobin was 11.5 on admission iron studies demonstrated iron deficiency anemia ? Will give a dose of Venofer and transition to oral medications 3. Multiple sclerosis ? Stable ? Continue with home medications 4. Anxiety/depression ? Stable ? Continue with home medications DVT: Lovenox Charges/Coding Visit Charges Inpatient E&M: 41358 Subs Hosp L2
[2023-11-23 14:00] VITALS: BP 110/67; PULSE 80; RESP 16; TEMP 36.7; O2SAT 98
[2023-11-23 18:45] VITALS: BP 109/69; PULSE 81; RESP 16; TEMP 36.6; O2SAT 98
[2023-11-23] MEDS: ZONISAMIDE 100 MG CAPSULE 300 MG PO (20:44)
[2023-11-23] MEDS: Atorvastatin Calcium 80 MG Tablet PO (20:44)
[2023-11-24] VITALS (11 sets, daily range): BP systolic 107–149; BP diastolic 65–82; PULSE 67–86; RESP 16–18; TEMP 36.4–36.9; O2SAT 96–99
--- NOTE | 2023-11-24 05:00 | EKG12_ITS ---
Test Reason : AM EKG Blood Pressure : / mmHG Vent. Rate : 075 BPM Atrial Rate : 075 BPM P-R Int : 152 ms QRS Dur : 082 ms QT Int : 382 ms P-R-T Axes : 040 -30 034 degrees QTc Int : 426 ms Normal sinus rhythm Left axis deviation Abnormal ECG When compared with ECG of 23-NOV-2023 05:12, MANUAL COMPARISON REQUIRED, DATA IS UNCONFIRMED Confirmed by SIMI CARRILLO, NEY ([id number]), editor managing director GUILLERMINA ALEXANDRE ([id number]) on 11/24/2023 2:16:53 PM Referred By: Confirmed By:NEY BELCHER MD
[2023-11-24] MEDS: Aspirin 81 MG TAB.CHEW PO (05:27)
--- NOTE | 2023-11-24 07:15 | EKG12_ITS ---
Test Reason : CHEST PAIN Blood Pressure : / mmHG Vent. Rate : 078 BPM Atrial Rate : 078 BPM P-R Int : 148 ms QRS Dur : 080 ms QT Int : 398 ms P-R-T Axes : 055 -37 031 degrees QTc Int : 453 ms Normal sinus rhythm Left axis deviation Nonspecific ST and T wave abnormality Abnormal ECG When compared with ECG of 24-NOV-2023 00:48, MANUAL COMPARISON REQUIRED, DATA IS UNCONFIRMED Confirmed by SIMI CARRILLO, NEY ([id number]), news videotape editor GUILLERMINA ALEXANDRE ([id number]) on 11/24/2023 2:14:51 PM Referred By: Confirmed By:NEY BELCHER MD
--- NOTE | 2023-11-24 07:48 | NURSING ---
Report called to [facility] in [employer]
--- NOTE | 2023-11-24 08:52 | PCM.PN.CARD ---
Subjective Subjective Patient seen and evaluated. Underwent cardiac catheterization today. Objective Data Vital Signs: Vital Signs Temp Pulse Resp BP Pulse Ox O2 Del Method 98.4 F 81 16 149/82 H 98 Room Air 11/24/23 07:16 11/24/23 07:16 11/24/23 07:16 11/24/23 07:16 11/24/23 07:16 11/24/23 07:16 Oxygen Delivery Method Room Air Weight: 184 lb 11.958 oz Body Mass Index (BMI) 25.0 Intake & Output: Intake and Output for Last 24 Hours 11/22/23 11/23/23 11/24/23 23:59 23:59 23:59 Intake Total 1150 / 1510 1310 / 1670 360 / 360 Balance 1150 / 1510 1310 / 1670 360 / 360 Lab / Micro Data 11/23/23 05:35 11/23/23 05:35 Cardiology Labs/Tests Rhythm: EKG: ECHO: Stress Test: Cardiac Cath: PCI: CT Surgery: Holter monitor: EPS: PPM: CXR: Chest CT Scan: Physical Exam Const alert, oriented x3 and no apparent distress General Appearance: cooperative HEENT hearing grossly normal bilaterally Head and Scalp: atraumatic Eyes EOMs intact bilaterally Neck General: normal visual inspection Chest inspection of chest normal and palpation of chest normal Resp normal respiratory effort Auscultation: clear to auscultation bilaterally Cardio regular rate, regular rhythm, S1 normal heart sound and S2 normal heart sound Jugular Venous Distention: JVD GI normal to inspection, nondistended, normoactive bowel sounds Extremity normal capillary refill and no pedal edema Peripheral Pulses: Yes pulses 2+ throughout and femoral pulses present Skin no rashes or lesions noted Neuro oriented x3 and CN's II-XII intact bilaterally Psych Appearance: grossly normal and appropriate Assessment & Plan Assessment/Plan (1) Chest pain: QUALIFIERS: Chest pain type: unspecified Qualified Code(s): R07.9 - Chest pain, unspecified PLAN: Patient was evaluated with a stress test with demonstrated abnormal anterior ischemia and underwent a cardiac catheterization today which demonstrated the following: Normal left main coronary artery. Left anterior descending artery with high-grade 95% mid segment stenosis with the first diagonal vessel with ostial 95% stenosis. Dominant left circumflex artery with no significant stenosis. Nondominant right coronary artery. Hyperdynamic ventricle. Based on the above angiographic findings I would recommend consideration for coronary artery bypass surgery. Arrangements will be made for transfer.
[2023-11-24] MEDS: Ferrous Gluconate 324 MG Tablet PO (10:11)
[2023-11-24] MEDS: DIMETHYL FUMARATE 240 MG CAPSULE.DR PO (10:11)
[2023-11-24] MEDS: ZONISAMIDE 100 MG CAPSULE 200 MG PO (10:12)
[2023-11-24] MEDS: Metoprolol Tartrate 25 MG Tablet PO (10:12)
[2023-11-24] MEDS: Citalopram 40 MG TABLET PO (10:13)
[2023-11-24 10:15] LABS: Vitamin B12 196 pg/mL (211-911)
--- NOTE | 2023-11-24 10:44 | PN.HOSP_ITS ---
Subjective Subjective Doing well, no issues overnight Objective Data Objective Data Vital Signs: Vital Signs Temp Pulse Resp BP Pulse Ox O2 Del Method 97.7 F L 80 16 119/78 96 Room Air 11/24/23 09:10 11/24/23 10:36 11/24/23 10:06 11/24/23 10:36 11/24/23 10:36 11/24/23 10:36 Oxygen Delivery Method Room Air Weight: 184 lb 11.958 oz Body Mass Index (BMI) 25.0 Intake & Output: Intake and Output for Last 24 Hours 11/23/23 11/24/23 11/25/23 03:59 03:59 03:59 Intake Total 1390 / 1390 1310 / 1310 Balance 1390 / 1390 1310 / 1310 Lab / Micro Data 11/23/23 05:35 11/23/23 05:35 Labs: Laboratory Results - last 24 hr 11/22/23 04:40: Vitamin B12 196 L Physical Exam Narrative General: Alert, Oriented x3, Cooperative, No apparent distress HEENT: Atraumatic, PERRLA, EOMI, Normocephalic Oral: Moist Mucosa Neck: Supple, No JVD Lungs: Diminished, Normal air movement, No rhonchi, No wheeze, No rales Cardiovascular: Regular rate, Regular Rhythm, Normal S1, Normal S2, No murmurs Abdomen: Soft, Non Tender, Non-Distended, No Hepato-splenomegaly Extremities: No edema, Capillary Refill Less than 3 Seconds Skin: No rashes, No breakdown Musculoskeletal: No Tenderness to Palpation of Joints or Extremities Neurological: No focal neurological deficits, Motor Exam 5/5 strength throughout, Sensory exam intact to light touch and pain Psych/Mental Status: Normal Affect, Appropriate Assessment & Plan Assessment/Plan (1) Chest pain: QUALIFIERS: Chest pain type: unspecified Qualified Code(s): R07.9 - Chest pain, unspecified PLAN: Plan 1. Chest pain ? Echo was unremarkable however stress test showed some mild ischemia ? Heart cath today demonstrated 95% high-grade stenosis in the LAD in the mid segment with the first diagonal vessel with an ostial 95% stenosis ? Cardiology is recommending transfer to [facility] for CABG ? Given this plus his LDL of 110 will start on a statin 2. Iron deficiency anemia ? Hemoglobin was 11.5 on admission iron studies demonstrated iron deficiency anemia ? Will give a dose of Venofer and transition to oral medications 3. Multiple sclerosis ? Stable ? Continue with home medications 4. Anxiety/depression ? Stable ? Continue with home medications DVT: Lovenox Charges/Coding Visit Charges Inpatient E&M: 62292 Subs Hosp L2
--- NOTE | 2023-11-24 14:46 | DS.PCM_ITS ---
Providers Date of Admission: 11/21/23 Primary Care Physician: Dr. Wisam Simons MD Consultations 11/22/23 09:46 Consult: Cardiology Routine Consulting Provider: Merlin Mathias Reason for Consult: Abnormal stress EMERGENT Consult: No MD Notified: Yes Date Notified: 11/22/23 Time Notified: 09:46 Method of Notification: Verbal Reason For Visit: CHEST PAIN, ACS RULE OUT Diagnosis Discharge Diagnosis (1) Chest pain: Status: Acute Code(s): R07.9 - Chest pain, unspecified Qualifiers: Chest pain type: unspecified Qualified Code(s): R07.9 - Chest pain, unspecified Medications at Discharge Home Medications citalopram 40 mg tablet 40 mg PO DAILY depression 11/21/23 dimethyl fumarate 240 mg capsule,delayed release 240 mg PO BID ms 11/21/23 zonisamide 100 mg capsule 200 mg PO .am seizures 11/21/23 zonisamide 100 mg capsule 300 mg PO QHS seizures 11/21/23 aspirin 81 mg chewable tablet 81 mg PO BREAKFAST #0 tabs 11/24/23 atorvastatin 80 mg tablet 80 mg PO QHS #0 tabs 11/24/23 ferrous gluconate 324 mg (37.5 mg iron) tablet 324 mg PO BIDCM #0 tabs 11/24/23 Hospital Course Operations None Procedures Cardiac catheterization and Nuclear stress test Summary of Care Provided Minutes Spent on Discharge: 37 Hospital Course: Per HPI: JUANITA JAY, is a 68 M who presented to [facility] ED on 11/21/2023 with chest pain. Patient has history of MS diagnosed in 2018, follows with neurology at [facility]. Notes that his primary MS symptom is difficulty with balance but he otherwise has minimal symptoms due to his MS. He otherwise has minimal past medical history. Stated that he had an episode of chest pressure yesterday that occurred after waking up and walking down the steps in his [place]-level home. The pain subsided fairly quickly and he had no associated symptoms. Today, he had pain in the left chest along with left arm pain that was more severe and more persistent than yesterday, so he came in for further evaluation. He did report some nausea, diaphoresis and dyspnea with today's episode. In the ED, was noted to be hemodynamically stable on room air. EKG showed normal sinus rhythm, no ST changes. Troponins were negative x 2. Lab workup showed a mild anemia with hemoglobin 11.5, down from 14 back in 2021 (last known value), but was otherwise unremarkable. Chest x-ray was unremarkable. Given his concerning symptoms and no prior cardiac workup, hospitalist was contacted for admission. I saw patient at bedside in the ED. Patient was sitting up comfortably in bed, conversing normally, in no acute distress. He reported that the chest pain had completely subsided by this time. He denied any symptoms at this time. He was concerned by these episodes and unsure of what else could be causing the pain if not heart related. He denies any recent excessive physical activity or known muscle strains. Patient lives at home with his and has good functional status. No other acute concerns at this time. Hospital Course: 1. Chest pain?68-year-old male presented to the hospital with chest pressure that went down his left arm. Initially he had an episode on the day prior to admission which resolved fairly quickly but then on the day of admission he had recurrence of the chest pain that was more severe and more persistent. He underwent an echocardiogram that demonstrated an EF of 70% with no diastolic dysfunction, he then went a stress test that demonstrated ischemia involving the septum as well as the distal anterior wall and apex. He was scheduled for a heart cath today on 11/24/2023 that demonstrated 95% high-grade stenosis in the LAD in the mid segment. He was started on high-dose statin and aspirin. Cardiology felt that it would be best to transfer for evaluation of possible CABG. The case was discussed with cardiothoracic surgery at [facility] and they excepted patient for evaluation. He will be discharged today, this plans been discussed with the and the patient and they expressed understanding of the risk benefits of being transferred. 2. Iron deficiency anemia?hemoglobin on admission was 11.5 and iron studies demonstrated and iron deficiency anemia iron level of 27 and a TIBC of 437 and iron saturation of 6.2 with a ferritin of 14. He was given a dose of IV Venofer and then placed on oral iron replacement. 3. Multiple sclerosis, anxiety, depression are chronic which complicate his care. His home medications were continued where appropriate Physical Exam Narrative General: Alert, Oriented x3, Cooperative, No apparent distress HEENT: Atraumatic, PERRLA, EOMI, Normocephalic Oral: Moist Mucosa Neck: Supple, No JVD Lungs: Diminished, Normal air movement, No rhonchi, No wheeze, No rales Cardiovascular: Regular rate, Regular Rhythm, Normal S1, Normal S2, No murmurs Abdomen: Soft, Non Tender, Non-Distended, No Hepato-splenomegaly Extremities: No edema, Capillary Refill Less than 3 Seconds Skin: No rashes, No breakdown Musculoskeletal: No Tenderness to Palpation of Joints or Extremities Neurological: No focal neurological deficits, Motor Exam 5/5 strength throughout, Sensory exam intact to light touch and pain Psych/Mental Status: Normal Affect, Appropriate Weight / BMI Weight Weight: 184 lb 11.958 oz Body Mass Index (BMI) 25.0 ABG / Lab / Microbiology Data 11/23/23 05:35 11/23/23 05:35 Laboratory: Laboratory Results - last 24 hr 11/22/23 04:40: Vitamin B12 196 L Meaningful Use Info Meaningful Use Meaningful Use Diagnoses (Choose all that apply): None applicable Ischemic Stroke Statin Dosing Therapy Reference: STATIN DOSE THERAPY REFERENCE: * Patients > 75 years receive moderate or high dose statin therapy. * Patients 75 years or YOUNGER should receive HIGH intensity statin dose unless contraindicated. You will be required to document reason for non-treatment if statin daily dose does not meet guidelines. HIGH DOSE STATIN THERAPY DAILY Atorvastatin > than or = to 40 mg Rosuvastatin > than or = to 20 mg Amlodipine + Atorvastatin > than or = to 2.5/40 mg Ezetimibe + Simvastatin 10/80 mg Simvastatin 80mg Discharge Plan Admission Admit Date/Time: 11/21/23 14:02 Attending Provider: Nacho Issa Primary Care Provider: Wisam Simons Consulting Providers: Raz Staples; Merlin Mathias Discharge Orders/Prescriptions Prescriptions: New atorvastatin 80 mg Tablet 80 mg PO QHS Qty: 0 0RF aspirin 81 mg Tablet,Chewable 81 mg PO BREAKFAST Qty: 0 0RF ferrous gluconate 324 mg (37.5 mg iron) Tablet 324 mg PO BIDCM Qty: 0 0RF Continued citalopram 40 mg tablet 40 mg PO DAILY dimethyl fumarate 240 mg capsule,delayed release(DR/EC) 240 mg PO BID zonisamide 100 mg capsule 200 mg PO .am zonisamide 100 mg capsule 300 mg PO QHS Referrals / Follow Up: Wisam Simons MD [Primary Care Provider] - Disposition Discharge Orders: Discharge Patient (Routine); Ordered 11/24/23 Ordered By: Dr. Nacho Issa Charges/Coding Visit Charges Inpatient E&M: 96163 Disch Hosp >30min
[2023-11-24] MEDS: Enoxaparin 40 MG/0.4 ML Syringe SC (15:46)
--- NOTE | 2023-11-24 16:08 | NURSING ---
Report called to [facility] KINSEY Linder.
--- NOTE | 2023-12-01 08:18 | CL.D_ITS ---
Patient Name: JUANITA JAY Study Date: 11/24/2023 Performing: Shravan Bernal MD Ht: 72 inches 182.88 cm : 1955 Wt: 185 lbs 83.8 kg Age: 68 Gender: male BSA: 2.06 PROCEDURE(S) PERFORMED [id number])LHC/COR/LV CLINICAL PROFILE AND INDICATIONS Indications: Suspected CAD Heart Failure: None Stress/Imaging Date: 11/22/23Stress Test with SPECT MPI: Positive High Risk CAD Presentations: Unstable angina. CONCLUSIONS Severe LAD disease involving the first diagonal vessel and a calcified portion in the mid LAD with a dominant left system. RECOMMENDATIONS Surgery consult for coronary revascularization DESCRIPTION OF PROCEDURE The patient arrived to the procedure lab. The risks and benefits of the procedure as well as a full description of our services here and current unavailability of surgical backup were fully explained to the patient and/or their significant other prior to the catheterization. The Timeout was completed, verifying the correct patient and procedure. The patient's procedural site was prepped and draped in the usual fashion. Local anesthetic was given subcutaneously to right radial region with Lidocaine 2%. Using a modified Seldinger technique, arterial access was obtained via the right radial artery, a 6Fr sheath was inserted. Left Coronary Artery selective angiography was performed in multiple views using a 5 Fr. 4.0 [place] catheter. Right Coronary Artery selective angiography was then performed in multiple views using a 5 Fr. 4.0 [place] catheter. Left Ventriculography was performed in [place] projection using a 5 Fr. Pigtail catheter. LV to AO pullback pressures were then recorded.The arterial sheath was pulled and a TR Band was applied for hemostasis CORONARY ANGIOGRAPHY DOMINANCE: Left Dominant LEFT HEART ASSESSMENT Left Ventricular Ejection Fraction: by LV Gram 70 % Normal LV wall motion Normal Left Ventricular systolic function LEFT MAIN: Angiographically normal LEFT ANTERIOR DESCENDING ARTERY: Medium size vessel with high-grade 95% stenosis noted in the mid LAD with the ostial diagonal vessel with a 90% stenosis in a large vessel. The distal LAD appears to be minimally diseased. CIRCUMFLEX ARTERY: Mild luminal irregularities RIGHT CORONARY ARTERY: Mild luminal irregularities less than 30% COMPLICATIONS No Complications PROCEDURE MEDICATIONS Versed 1 mg IV Fentanyl 50 mcg IV Versed 1 mg IV Oxygen: 2 L/min via nasal cannula Heparin given IA 11/24/2023 08:39:57 Verapamil 2.5mg, Ntg 100mcgs, 3000 units of Heparin given IA 11/24/2023 08:39:57 SUMMARY OF HEMODYNAMIC DATA Time AIR REST ECG 08:11:23 AO 108/62 (84) SA 08:40:55 LV 113/24, 37 08:47:23 LV 92/4, 15 08:47:33 LV 80/6, 13 08:48:46 LV 82/8, 13 08:48:55 LVp 83/4, 14 08:49:08 AOp 123/0 (86) 08:49:15 Signed By Shravan Bernal MD On 12/01/2023 08:17:12 Shravan Bernal MD
== END 2023-11-24 14:46 | disposition short-term general hospital (02) ==
LOC: ED 14:10 → PCU 14:24
PROVIDERS: Admitting Provider Hospitalist; Emergency Provider Emergency Medicine; PCP Family Medicine; Visit Provider Family Medicine
DX: I25.110 Atherosclerotic heart disease of native coronary artery with unstable angina pectoris (principal); G35 Multiple sclerosis; G40.909 Epilepsy, unspecified, not intractable, without status epilepticus; R07.89 Other chest pain; F41.9 Anxiety disorder, unspecified; D50.9 Iron deficiency anemia, unspecified; R94.39 Abnormal result of other cardiovascular function study; Z87.891 Personal history of nicotine dependence; R03.0 Elevated blood-pressure reading, without diagnosis of hypertension; F32.A Depression, unspecified; Z79.899 Other long term (current) drug therapy
CPT/HCPCS: 36415; 71045; 78452; 80048; 80061; 82607; 82728; 82746; 83036; 83540; 83550; 84443; 84484; 85025; 85027; 93005; 93017; 93306; 93458; 94668; 96365; 96366; 96372; 99152; 99153; 99221; 99252; 99285; A9500; J7030; J7040; J7050; Q9967; A4216; C1769; C1894; G0378; G0463; J2785; J2916

== ENCOUNTER → 2024-01-09 | Outpatient (CLI) | payer MEDICARE, OTHER, SELFPAY ==
--- NOTE | 2024-01-09 12:55 | PCM.CR.HP2 ---
CR - History & Physical General Arrival date:: 01/09/24 Arrival time:: 12:56 Date of Referral:: 01/02/24 Date of CR Evaluation:: 01/09/24 Referring Physician: Dr. Bernal Primary Diagnosis: CABG History of Present Cardiac Event Onset Date Coronary Artery Bypass Graft:: Yes (onset 11/26/23) Vessel: WILLETT to LAD and reverse SVG to diagonal 1 Medications Ambulatory Orders ?Medication ?Instructions ?Recorded citalopram 40 mg tablet 40 mg PO DAILY depression 11/21/23 dimethyl fumarate 240 mg 240 mg PO BID ms 11/21/23 capsule,delayed release zonisamide 100 mg capsule 200 mg PO .am seizures 11/21/23 zonisamide 100 mg capsule 300 mg PO QHS seizures 11/21/23 aspirin 81 mg chewable tablet 81 mg PO BREAKFAST #0 tabs 11/24/23 atorvastatin 80 mg tablet 80 mg PO QHS #0 tabs 11/24/23 ferrous gluconate 324 mg (37.5 mg 324 mg PO BIDCM #0 tabs 11/24/23 iron) tablet Allergies Allergies No Known Allergies Allergy (Verified 01/02/24 13:34) Sleep Disorder Evaluation Hx of Sleep Apnea: No Do you snore loudly (louder than talking or can be heard through closed doors)?: No Do you often feel tired/ fatigued/ sleepy during daytime?: No Has anyone observed you stop breathing during sleep?: No History of Hypertension (for STOP score): No STOP Results: Negative Advanced Directives Advanced Directives Power of Unified Communications Engineer: No Living Will: Yes Advance Directives Information Provided: Yes Advance Directives on File: No DNR Order?:: No Past Medical History Covid-19 Screening Physicial Symptoms Other Clinical Concerns Exposure Risk Pertinent Comorbidities 65 years or older:: Yes Has a serious heart condition:: Yes Past Medical Illness Past Medical History (Updated 01/02/24 @ 14:26 by Ronnie Lizarraga CENTRAL COMMUNICATIONS SPECIALIST, CENTRAL COMMUNICATIONS SPECIALIST-C) Postoperative atrial fibrillation I97.89, I48.91 Leptospirosis A27.9 Age 35 Atherosclerosis of coronary artery of [place] heart without angina pectoris I25.10 Seizures R56.9 Multiple sclerosis G35 Past Surgical History Past Surgical History (Updated 01/02/24 @ 13:44 by Loreto Mancilla) History of tonsillectomy Z90.89 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 History of left heart catheterization (~11/24/23) Z98.890 History of coronary artery bypass surgery (~11/26/23) Z95.1 Family History Summary Family History (Updated 01/02/24 @ 13:45 by Loreto Mancilla) Mother Multiple myeloma Father CVA (cerebral vascular accident) Brother CAD (coronary artery disease) History of coronary artery bypass surgery Social History Smoking History Smoking Status: Former smoker Years Smokin (stopped 20 years ago) Hx Tobacco Use: Yes (smoked less than an pack a day) Alcohol Use Alcohol Usage: Yes (rare) Substance Abuse Hx Substance Use: No Occupation Occupation (List type of work in comments):: Retired Hobbies, Recreation, Social Activities Hobbies: Other (hunting, shooting targets) Recreational Activities: I am able to engage in all my recreational activities Social Environment Status Marital Status: Current Living Arrangements Living Environment:: Spouse Children How many children do you have?: 1 Do any of your children live nearby?: Yes Safety Do you feel safe in your surroundings?: Yes Assistance Do you need any assistance at home?: no Review of Systems Review of Systems Hints Review of Present Symptoms: Reports Shortness of Breath with Exertion, Appetite - Normal, Appetite - Special Diet and Sleep - Normal; Denies Shortness of Breath at Rest, PVD, Operative Discomfort, Angina, Wound Healing, Dizziness/Lightheadedness, Fatigue, Heart Arrhythmia/Irregularities or Sexual Changes Pain Is Patient Pain Free?: No Risk Factor Assessment Chief Complaint Chief Complaint: CABG Vital Signs Pulse Ox: 95 Blood Pressure: 102/58 Pulse Pulse Rate: 95 Pulse Rhythm: Regular Hypertension Blood Pressure Sitting - Left Arm: 102/58 Obesity Height: 6 ft Weight:: 177 lb Weight in Pounds: 177.0 lbs Body Mass Index (BMI): 24.0 Nutritional Referral for Obesity: No Physical Inactivity Physical Inactivity: Reg Exercise 30 min/day Risk Stratification Risk Guidelines: Moderate Risk: Risk Factor for Smoking, Risk Factor for Diabetes, Risk Factor for Obesity and Risk Factor for Hypertension and Highest Risk: Risk Factor for Dyslipidemia, Risk Factor for Sedentary Lifestyle and Risk Factor for Depression For Smoking Smoking Risk Guidelines For Dyslipidemia Dyslipidemia Risk Guidelines For Diabetes Mellitus Diabetes Risk Guidelines For Obesity/Overweight Obesity/Overweight Risk Guidelines For Hypertension Hypertension Risk Guidelines For Sedentary Lifestyle Sedentary Lifestyle Risk Guidelines For Depression Depression Risk Guidelines Family History Family History (Updated 01/02/24 @ 13:45 by Loreto Mancilla) Mother Multiple myeloma Father CVA (cerebral vascular accident) Brother CAD (coronary artery disease) History of coronary artery bypass surgery Motivation Motivation to Participate On a scale of 1 to 10, how prepared are you to commit to attending program?: 10 What do you see as barriers to successfully being able to complete the program?: nothing What do you see as the benefits of succesfully completing the program? In other words, what do you hope to get out of participating in the program?: back to feeling good. Are there issues you are dealing with that will interfere with completing the program?: no Do you have a spouse or signficant other, family or friends who will help support you to complete the program?: yes
--- NOTE | 2024-01-09 13:03 | PCM.CR.ITP ---
Diagnosis General Information Admitting Diagnosis: CABG Personal Learning Style:: Audio/Visual Barriers to Learning: No Barriers Stage of change r/t lifestyle modifications:: Contemplation Gave educational material for:: Treating Heart Disease, How The Heart Works, What it means to have Heart Disease, How Coronary Artery Disease is Diagnosed, Heart Procedures, What Heart Medications Do, Risk Factors & Modifications, Living an Active Life, Nutrition, Emotions & Heart Disease, Stress Management & Relaxation and Sleep Disorders & Heart Disease Education/Goals Cardiac Rehabilitation Goals Personal Goals: Initial Assessment: Improve energy level, Participate in home exercise program, Get back to work, or to resume activities faster, Improve muscle strength and endurance, Improve diet and eating habits (eat healthier) and Control risk factors (learn risk factor modification) Scale for measuring improvement of personal goals Diagnosis & Disease Process Outcomes/Goals: Pt IDs own risk factors & lifestyle modifications by Session 10, Verbalizes symptoms of angina & response by session 3., Pt independently manages and Other Additional Outcomes/Goals: Plan/Interventions: Assist Pt to ID & engage in lifestyle modification to reduce CVD risk, Instruct on individual risk factors, Review symptoms of angina & emergency actions, Review secondary diagnosis & identify educational needs. and Other see comment 30 day Reassessments:: Not Met 30 day Reassessments:: Not Met 30 day Reassessments:: Not Met 30 day Reassessments:: Not Met Final Reassessments:: Not Met Safety Referral to Physical Therapy: No Referral to [facility] Case Management: No Fall Risk Assessed:: Yes Assistive Devices:: None Exercise - Initial Assessment Visit Date of Eval: 01/09/24 (initial eval ) Mets: Pre-: >5 METS for 30 minutes by discharge Physician Prescribed Exercise Modalities: Treadmill, Schwinn Airdyne AD-7, SciFit Stepper, SciFit Pro-II Ergometer and SciFit Lateral Box Toe Cementer Frequency: 3x/week for 12 weeks [36 sessions] Intensity: 60-80% of age predicted maximum heart rate reserve Duration: 30 - 45 minutes Current METSs:: 3 Target Heart Rate:: 91-114 Resting Blood Pressure: 102/58 EKG Type: NSR left axis deviation ST and T wave abnormality Outcomes & Goals Goals:: Verbalizes understanding of THR, RPE & goal METS by session 6, Documents in home exercise log/reports 30 min aerobic 5 day/wk by DC, Demonstrates accurate pulse taking by DC and Other additional outcome/goals: see below Intervention & Plan Exercise Program Goals: Instruct on personal THR & RPE, Instruct on MET level & personal MET goal, Show patient to take own pulse /validate performance until accurate, Instruct on home exercise and Other additional plan/int Physical Activity Home Exercise Physical Activity - Home Exercise: Safe Exercise, Warm-up, Self-monitoring, Cool-Down, Home Exercise > 30 min Daily and Sitting Time <3 hours/daily Outcomes & Goals Outcomes/Goals: Demonstrates correct Warm-up/exercise Cool-Down (S3) if = 2.5 METs, Verbalizes symptoms of exercise intolerance by Session 3 (S3), Demonstrate safe equipment use (S3) & follows exercise prescrition (6) and Other: See below Intervention & Plan Plan/Intervention: Instruct warm-up & cool-down if exercising at > 2 METs, Instruct on symptoms of exercise intolerance & actions to take, Instruct & monitor on saf, Assess intial functional capacity & safety risk and Other See below Nutrition - Initial Assessment Program Goals Nutrition Program Goals Patient has diagnosis of Hyperlipidemia (ICD E78)?: Yes Visit Date of Eval: 01/09/24 (initial eval ) Cholesterol/Lipids (Other Core Measures) Determine presence & major risk factors that modify LDL goal: Cigarette smoking, Hypertension or hypertensive medication, Low HDL cholesterol <40 mg/dL*, Family history of premature CHD in Male < 55 years: female <65 yearsFa and Age men > 45 years; women >/= 55 years Outcomes/Goals: Pt IDs own risk factors & lifestyle modifications by Session 10, Verbalizes symptoms of angina & response by session 3., Pt independently manages and Other Additional Outcomes/Goals: Intervention/Plan: Advocate for lipid panel cholesterol medication if applicable, Instruct on personal lipid levels & lipid goals/NCEP guidelines, Instruct on cholesterol and Other additional plan/int Diabetes (Other Core Measures) Diabetes Type: Not Applicable Weight Mgt (Other Care) Height: 6 ft Weight:: 177 lb BMI: 24.0 Diagnosis Overweight/Obesity BMI> 30% ICD-10 E66: No Diagnosis High BMI/Morbid Obesity BMI> 35% ICD-10 Z68: No Outcomes/Goals: Pt sets, maintains & shows weight loss goal & trend during rehab and Other additional outcomes/goals Intervention/Plan: Instruct on ideal BMI & set weight loss goal w/patient, Assist pt to ID & incorporate diet changes for weight loss by S9, Refer to Structured Weight Loss program as appropriate, Encourage goal of using 250-300dcal per session for weight loss and Other additional plan/interventions Healthy Eating Habits Will attend diet classes:: Yes Outcomes/Goals:: Consume diet rich in vegs,fruits,whole grain/high fiber,fish,lean meat, Limit sat/trans fats,cholesterol & added salts & sugars and Other additional outcome/goals: Intervention/Plan:: Assess current eating habits and Other Additional plan/interventions Education Gave educational materials for:: Signs & symptoms of hypoglycemia, Signs & symptoms of hyperglycemia, Relate diabetes to coronary artery disease and Healthy eating Core - Initial Assessment Visit Date of Eval: 01/09/24 (initial eval ) Medication Compliance Preventative Medication(s):: Aspirin and Statin/lipid H/O mental health issues: depression, anxiety, or addiction?: Yes Doesn?t believe in the benefits of treatment?: No Believes medications are unnecessary or harmful?: No Has a concern about medication side effects?: No Expresses concern over the cost of medications?: No Outcomes/Goals: Verbalizes medications,desired effect & common side effects @ DC, Pt self-reports following medication regimen, Keeps card in wallet w/medications listed by DC and Other additional outcome/goals: Interventions/plans: Instruct on medication effects & side effects, Review medication list w/patient every two weeks, Instruct importance of taking meds as ordered & assist problem solving and Other additional Tobacco Use Tobacco Use: Cigarettes How long ago did you quit using tobacco products?: Greater than or equal to 6 months ago Years Smokin (less than a pack) Hypertension Resting Blood Pressure:: 102/58 [place] [employer] Hypertension Guidelines Outcomes/Goals: Able to verbalize/achieve optimal blood pressure <130/80, Incorporates diet changes & exercise for blood pressure control by DC and Other additional outcomes/goals Interventions/plan: Instruct on optimal blood pressure, hypertension & medications, Instruct on effects of sodium, alcohol, stress, exercise &hypertension and Other additional plan/interventions Tobacco Cessation Referral Smoking Cessation Referral:: No Individual Education/Counseling:: No Education Schedule Given:: Yes Psychosocial - Initial Assess VIsit Date of Eval: 01/09/24 (initial eval ) History of previous Mental disease:: Yes History of Emotional Disorders: Depression Target Goals Target Goals Psychosocial Test Tool Used:: Ferrans Power QOL Cardiac and PHQ-9 Questionnaire phq-9 Severity Referral to Behavioral Health PS - Interventions: Yes: Attend Stress Management Classes Outcomes/Goals: See list Psychosocial Outcomes/Goals:: ID's personal stressors & 2 strategies to manage stress by discharge and Other Additional outcome/goals: Intervention/Plan: See List Interventions/Plan:: Assess stressors,coping strategies & signs of derpression on admission, Instruct/assist pt to develop coping & personal stress Mgt strategies, Refer to Behavioral Health if appropriate, Refer to Physician if appropriate, Instruct patient to recognize signs & symptoms of depression, Instruct patient to recog and Other additional plan/intervention Patient Health Questionnaire PHQ-9 Screening Initial Assessment: 1. Little interest or pleasure in doing things: Not at all 2. Feeling down, depressed, or hopeless: Not at all 3. Trouble falling or staying asleep, or sleeping too much: Not at all 4. Feeling tired or having little energy: Not at all 5. Poor appetite or overeating: Several days 6. Feeling bad about yourself -- or that you are a failure or have let yourself or your family down: Not at all 7. Trouble concentrating on things, such as reading the newspaper or watching television: Not at all 8. Moving or speaking so slowly that other people could have noticed. Or the opposite - being so fidgety or restless that you have been moving around a lot more than usual: Not at all 9. Thoughts that you would be better off , or of hurting yourself in some way: Not at all How difficult have these problems made it for you to do your work, take care of things at home, or get along with other people?: Somewhat difficult Total Score: 1 WALKER-Q SV Test Statements CAD is a disease of the arteries in the heart: I Don't Know Examples of risk factors for heart disease: True Angina is chest pain or discomfort: I Don't Know The benefits of resistance training include: True Eating more meat and dairy products: False Anti-platelet medications such as aspirin are important: I Don't Know The only effective way to manage stress: False An exercise warm-up slowly increases heart rate: I Don't Know Prepared, processed foods usually have high sodium: True Depression is common after a heart attack: I Don't Know The statin medications lower cholesterol: I Don't Know To control blood pressure, lower the amount of sodium: I Don't Know If someone gets chest discomfort during walking: False Transfats are partially hydrogenated vegetable oils: True Sleep apnea that is not treated increases the risk: I Don't Know To control cholesterol, one should become a vegetarian: False Someone knows if he/she is exercising at the right level: I Don't Know Diabetes cannot be prevented with exercise & health eating: I Don't Know Stress is a large risk for heart attack: True A diet that can help lower blood pressure is rich in: I Don't Know Total Score Total Correct Responses: 9 Self-Efficacy 6-Item Scale Initial Assessment: We would like to know how confident you are in doing certain activities. Please select your confidence level for: Fatigue Select Number: 5 Physical Discomfort or Pain Select Number: 8 Emotional Distress Select Number: 9 Other Symptoms or Health Problems Select Number: 4 Different Tasks and Activities Select Number: 8 Medication Select Number: 8 Total Score:: 7 Nutrition Survey Nutrition Survey Instructions Scoring Instructions Nutrition Survey Initial: Have you lost >10 lbs over the past 2 months without trying?: Yes Are you following a special diet at home for diabetes, low fat, or low salt?: No Are you interested in meeting with a dietitian for help understanding your diet?: Yes Do you eat less than 3 meals a day?: Yes Do you eat fatty meats (cummins, sausage, ribs, etc), fried foods, desserts, large amounts of salad dressings, margarine, butter, or cheese most days?: No Do you have food allergies? [Enter types in comment field]: No Do you eat in restaurants more than 3 times a week?: No Do you season food with salt, seasoning salt, or garlic salt?: Yes Do you used canned, boxed, frozen meals, or soups, seasoning packets?: No Total Score:: 4 Exercise - 30-day Assessment Physician Prescribed Exercise Modalities: Treadmill, Schwinn Airdyne AD-7, SciFit Stepper, SciFit Pro-II Ergometer and SciFit Lateral Box Toe Cementer Exercise - 60-day Assessment Physician Prescribed Exercise Modalities: Treadmill, Schwinn Airdyne AD-7, SciFit Stepper, SciFit Pro-II Ergometer and SciFit Lateral [place] Exercise - 90-day Assessment Physician Prescribed Exercise Modalities: Treadmill, Schwinn Airdyne AD-7, SciFit Stepper, SciFit Pro-II Ergometer and SciFit Lateral [place] Exercise - Final/Discharge Physician Prescribed Exercise Modalities: Treadmill, [place] Airdyne AD-7, SciFit Stepper, SciFit Pro-II Ergometer and SciFit Lateral [place] Frequency: 3x/week for 12 weeks [36 sessions] Intensity: 60-80% of age predicted maximum heart rate reserve Current METSs:: 3 Target Heart Rate:: 91-114 Nutrition - 30-Day Assessment Weight Mgt (Other Care) Height: 6 ft Weight:: 177 lb BMI: 24.0 Nutrition - 60-Day Assessment Weight Mgt (Other Care) Height: 6 ft Weight:: 177 lb BMI: 24.0 Core - 30-Day Assessment Tobacco Use Years Smokin (less than a pack) Core - Final Assessment Hypertension Resting Blood Pressure:: 102/58 [place] [employer] Hypertension Guidelines Core - 60-Day Assessment Hypertension Resting Blood Pressure:: 102/58 [place] [employer] Hypertension Guidelines Psychosocial - 30-Day Assess Target Goals Target Goals Referral to Behavioral Health PS - Interventions: Yes: Attend Stress Management Classes Psychosocial - 60-Day Assess Target Goals Target Goals Referral to Behavioral Health PS - Interventions: Yes: Attend Stress Management Classes Psychosocial - 90-Day Assess Target Goals Target Goals Referral to Behavioral Health PS - Interventions: Yes: Attend Stress Management Classes Psychosocial - Final Assessmen Target Goals Target Goals Referral to Behavioral Health PS - Interventions: Yes: Attend Stress Management Classes Nutrition - 90-Day Assessment Weight Mgt (Other Care) Height: 6 ft Weight:: 177 lb BMI: 24.0 Nutrition - Final Assessment Program Goals Patient has diagnosis of Hyperlipidemia (ICD E78)?: Yes Weight Mgt (Other Care) Height: 6 ft Weight:: 177 lb BMI: 24.0
[2024-01-09 13:30] VITALS: BP 102/58; PULSE 95; O2SAT 95
[2024-01-09 14:40] VITALS: BP 102/58
[2024-01-09 14:45] VITALS: BMI 24.0
[2024-01-09 14:46] VITALS: BMI 24.0
== END | disposition home or self-care (01) ==
PROVIDERS: PCP Family Medicine; Referring Provider Internal Medicine Cardiovascular Disease; Visit Provider Internal Medicine Cardiovascular Disease
DX: Z00.00 Encounter for general adult medical examination without abnormal findings (principal)

== ENCOUNTER 2024-02-11 14:15 | Outpatient (RCR) | payer MEDICARE, OTHER, SELFPAY ==
[2024-01-09 14:45] VITALS: BMI 24.0
== END 2024-02-12 23:59 ==
LOC: CR 14:15
PROVIDERS: PCP Family Medicine; Referring Provider Internal Medicine Cardiovascular Disease; Visit Provider Internal Medicine Cardiovascular Disease
DX: I25.10 Atherosclerotic heart disease of native coronary artery without angina pectoris (principal); G35 Multiple sclerosis; Z95.1 Presence of aortocoronary bypass graft
CPT/HCPCS: 93798

== ENCOUNTER 2024-03-08 14:15 | Outpatient (RCR) | payer MEDICARE, OTHER, SELFPAY ==
[2024-01-09 14:45] VITALS: BMI 24.0
--- NOTE | 2024-03-08 08:36 | CR.ITP_ITS ---
Exercise - Initial Assessment Physician Prescribed Exercise Modalities: SciFit Stepper and SciFit Lateral [place] Man Nutrition - Initial Assessment Weight Mgt (Other Care) Height: 6 ft Weight:: 178 lb 8 oz BMI: 24.2 Core - Initial Assessment Hypertension Resting Blood Pressure:: 104/70 [place] [employer] Hypertension Guidelines Psychosocial - Initial Assess Target Goals Target Goals Referral to Behavioral Health PS - Interventions: Yes: Attend Stress Management Classes Patient Health Questionnaire PHQ-9 Screening 60-Day Re-eval Assessment: 1. Little interest or pleasure in doing things: Not at all 2. Feeling down, depressed, or hopeless: Not at all 3. Trouble falling or staying asleep, or sleeping too much: Not at all 4. Feeling tired or having little energy: Not at all 5. Poor appetite or overeating: Several days 6. Feeling bad about yourself -- or that you are a failure or have let yourself or your family down: Not at all 7. Trouble concentrating on things, such as reading the newspaper or watching television: Not at all 8. Moving or speaking so slowly that other people could have noticed. Or the opposite - being so fidgety or restless that you have been moving around a lot more than usual: Not at all 9. Thoughts that you would be better off , or of hurting yourself in some way: Not at all How difficult have these problems made it for you to do your work, take care of things at home, or get along with other people?: Somewhat difficult Total Score: 1 Self-Efficacy 6-Item Scale 60-Day Re-eval Assessment: We would like to know how confident you are in doing certain activities. Please select your confidence level for: Fatigue Select Number: 5 Physical Discomfort or Pain Select Number: 8 Emotional Distress Select Number: 9 Other Symptoms or Health Problems Select Number: 4 Different Tasks and Activities Select Number: 8 Medication Select Number: 8 Total Score:: 7 Nutrition Survey Nutrition Survey Instructions Scoring Instructions Exercise - 30-day Assessment Physician Prescribed Exercise Modalities: SciFit Stepper and SciFit Lateral [place] Man Exercise - 60-day Assessment Visit Date of Eval: 03/08/24 Session #:: 21 Physician Prescribed Exercise Modalities: SciFit Stepper and SciFit Lateral [place] Frequency: 3x/week for 12 weeks [36 sessions] Intensity: 60-80% of age predicted maximum heart rate reserve Duration: 30 - 45 minutes Current METSs:: 3.9 Target Heart Rate:: 91-114 Current RPE:: 12.5-13 Maximum Excercise HR:: 75 Resting Blood Pressure: 92/80 Maximum Exercise Blood Pressure: 110/60 EKG Type: SB to NSR with a rare pac/pvc Outcomes & Goals Goals:: Verbalizes understanding of THR, RPE & goal METS by session 6, Documents in home exercise log/reports 30 min aerobic 5 day/wk by DC, Demonstrates accurate pulse taking by DC and Other additional outcome/goals: see below Intervention & Plan Exercise Program Goals: Instruct on personal THR & RPE, Instruct on MET level & personal MET goal, Show patient to take own pulse /validate performance until accurate, Instruct on home exercise and Other additional plan/int 30-day Reassessments 30 day Reassessments:: Progressing Reassessment Notes & Comments:: THR explained in exercise class. Pt demonstrates understanding Physical Activity Home Exercise Physical Activity - Home Exercise: Safe Exercise, Warm-up, Self-monitoring, Cool-Down, Home Exercise > 30 min Daily and Sitting Time <3 hours/daily Outcomes & Goals Outcomes/Goals: Demonstrates correct Warm-up/exercise Cool-Down (S3) if = 2.5 METs, Verbalizes symptoms of exercise intolerance by Session 3 (S3), Demonstrate safe equipment use (S3) & follows exercise prescrition (6) and Other: See below Intervention & Plan Plan/Intervention: Instruct warm-up & cool-down if exercising at > 2 METs, Instruct on symptoms of exercise intolerance & actions to take, Instruct & monitor on saf, Assess intial functional capacity & safety risk and Other See below 30-day Reassessments 30 day Reassessments:: Progressing Reassessment Notes & Comments:: Cool down explained and demonstrated. Pt is able to return demonstration. Exercise - 90-day Assessment Physician Prescribed Exercise Modalities: SciFit Stepper and SciFit Lateral [place] Man Exercise - Final/Discharge Physician Prescribed Exercise Modalities: SciFit Stepper and SciFit Lateral [place] Nutrition - 30-Day Assessment Weight Mgt (Other Care) Height: 6 ft Weight:: 178 lb 8 oz BMI: 24.2 Nutrition - 60-Day Assessment Program Goals Nutrition Program Goals Patient has diagnosis of Hyperlipidemia (ICD E78)?: Yes Visit Date of Eval: 03/08/24 Session #:: 21 Cholesterol/Lipids (Other Core Measures) Determine presence & major risk factors that modify LDL goal: Cigarette smoking, Hypertension or hypertensive medication, Low HDL cholesterol <40 mg/dL*, Family history of premature CHD in Male < 55 years: female <65 yearsFa and Age men > 45 years; women >/= 55 years Outcomes/Goals: Pt IDs own risk factors & lifestyle modifications by Session 10, Verbalizes symptoms of angina & response by session 3., Pt independently manages and Other Additional Outcomes/Goals: Intervention/Plan: Advocate for lipid panel cholesterol medication if ap plicable, Instruct on personal lipid levels & lipid goals/NCEP guidelines, Instruct on cholesterol and Other additional plan/int 30-day Reassessments:: Progressing Reassessment Notes & Comments:: Pt encouraged to have his routine blood draws done. Pt understands the importance. Diabetes (Other Core Measures) Diabetes Type: Not Applicable Weight Mgt (Other Care) Height: 6 ft Weight:: 178 lb 8 oz BMI: 24.2 Diagnosis Overweight/Obesity BMI> 30% ICD-10 E66: No Diagnosis High BMI/Morbid Obesity BMI> 35% ICD-10 Z68: No Outcomes/Goals: Pt sets, maintains & shows weight loss goal & trend during rehab and Other additional outcomes/goals Intervention/Plan: Instruct on ideal BMI & set weight loss goal w/patient, Assist pt to ID & incorporate diet changes for weight loss by S9, Refer to Structured Weight Loss program as appropriate, Encourage goal of using 250- 300dcal per session for weight loss and Other additional plan/interventions 30 day Reassessments:: Met Reassessment Notes & Comments:: Pt is at a healthy weight Healthy Eating Habits Will attend diet classes:: Yes Outcomes/Goals:: Consume diet rich in vegs,fruits,whole grain/high fiber,fish,lean meat, Limit sat/trans fats,cholesterol & added salts & sugars and Other additional outcome/goals: Intervention/Plan:: Assess current eating habits and Other Additional plan/interventions 30-day Reassessments:: Met Reassessment Notes & Comments:: Pt has attended nutrition class and understands the importance of a heart healthy diet. Education Gave educational materials for:: Signs & symptoms of hypoglycemia, Signs & symptoms of hyperglycemia, Relate diabetes to coronary artery disease and Healthy eating Core - Final Assessment Tobacco Use Years Smokin Hypertension Resting Blood Pressure:: 104/70 [place] [employer] Hypertension Guidelines Core - 60-Day Assessment Visit Date of Eval: 03/08/24 Session #:: 21 Medication Compliance Preventative Medication(s):: Aspirin and Statin/lipid H/O mental health issues: depression, anxiety, or addiction?: Yes Doesn?t believe in the benefits of treatment?: No Believes medications are unnecessary or harmful?: No Has a concern about medication side effects?: No Expresses concern over the cost of medications?: No Outcomes/Goals: Verbalizes medications,desired effect & common side effects @ DC, Pt self-reports following medication regimen, Keeps card in wallet w/medications listed by DC and Other additional outcome/goals: Interventions/plans: Instruct on medication effects & side effects, Review medication list w/patient every two weeks, Instruct importance of taking meds as ordered & assist problem solving and Other additional 30-day Reassessments:: Progressing Reassessment Notes & Comments:: 03/01 new med update plavix 75 mg QAM, ferrous sulfate 325 mg QD, metoprolol 25 mg BID Tobacco Use Tobacco Use: Non-smoker How long ago did you quit using tobacco products?: Greater than or equal to 6 months ago Years Smokin 30-day Reassessments:: Met Reassessment Notes & Comments:: Pt is now a non smoker Hypertension Resting Blood Pressure:: 92/80 Resting Blood Pressure:: 104/70 [place] [employer] Hypertension Guidelines Peak Exercise Blood Pressure:: 110/60 Outcomes/Goals: Able to verbalize/achieve optimal blood pressure <130/80, Incorporates diet changes & exercise for blood pressure control by DC and Other additional outcomes/goals Interventions/plan: Instruct on optimal blood pressure, hypertension & medications, Instruct on effects of sodium, alcohol, stress, exercise &hypertension and Other additional plan/interventions 30 day Reassessments:: Met Reassessment Notes & Comments:: Pt's BP's are within AHA's normal limits. Tobacco Cessation Referral Smoking Cessation Referral:: No Individual Education/Counseling:: No Education Schedule Given:: Yes Psychosocial - 30-Day Assess Target Goals Target Goals Referral to Behavioral Health PS - Interventions: Yes: Attend Stress Management Classes Outcomes/Goals: See list Psychosocial Outcomes/Goals:: ID's personal stressors & 2 strategies to manage stress by discharge and Other Additional outcome/goals: Psychosocial - 60-Day Assess VIsit Date of Eval: 03/08/24 Session #:: 21 History of previous Mental disease:: Yes History of Emotional Disorders: Depression Target Goals Target Goals Psychosocial Test Tool Used:: [employer] QOL Cardiac and PHQ-9 Questionnaire phq-9 Severity Referral to Behavioral Health PS - Interventions: Yes: Attend Stress Management Classes Outcomes/Goals: See list Psychosocial Outcomes/Goals:: ID's personal stressors & 2 strategies to manage stress by discharge and Other Additional outcome/goals: Intervention/Plan: See List Interventions/Plan:: Assess stressors,coping strategies & signs of derpression on admission, Instruct/assist pt to develop coping & personal stress Mgt strategies, Refer to Behavioral Health if appropriate, Refer to Physician if appropriate, Instruct patient to recognize signs & symptoms of depression, Instruct patient to recog and Other additional plan/intervention 30-day Reassessments: 30 day Reassessments:: Progressing Reassessment Notes & Comments:: Pt is on meds for depression and is doing well. Psychosocial - 90-Day Assess Target Goals Target Goals Referral to Behavioral Health PS - Interventions: Yes: Attend Stress Management Classes Psychosocial - Final Assessmen Target Goals Target Goals Referral to Behavioral Health PS - Interventions: Yes: Attend Stress Management Classes Nutrition - 90-Day Assessment Weight Mgt (Other Care) Height: 6 ft Weight:: 178 lb 8 oz BMI: 24.2 Nutrition - Final Assessment Weight Mgt (Other Care) Height: 6 ft Weight:: 178 lb 8 oz BMI: 24.2
[2024-03-08 08:51] VITALS: BP 104/70; BP 92/80; BMI 24.2
== END 2024-03-13 23:59 ==
LOC: CR 14:15
PROVIDERS: PCP Family Medicine; Referring Provider Internal Medicine Cardiovascular Disease; Visit Provider Internal Medicine Cardiovascular Disease
DX: I25.10 Atherosclerotic heart disease of native coronary artery without angina pectoris (principal); Z95.1 Presence of aortocoronary bypass graft; G35 Multiple sclerosis
CPT/HCPCS: 93798

== ENCOUNTER → 2024-03-24 | Outpatient (CLI) | payer MEDICARE, OTHER, SELFPAY ==
[2024-03-08 08:51] VITALS: BMI 24.2
[2024-03-24 16:23] LABS: AST(SGOT) 23 U/L (15-37); Alanine Aminotransfer ALT/SGPT 32 U/L (16-61); Alkaline Phosphatase 134 U/L (45-117); Bilirubin, Direct 0.14 mg/dL (0.00-0.30); Cholesterol 121 mg/dL (200); Globulin 3.6 g/dL (2.2-4.2); High Density Lipoprotein 50 mg/dL; Protein, Total 7.6 g/dL (6.4-8.2); Triglycerides 155 mg/dL; Very Low Density Lipoprotein 31 mg/dL (5-40)
== END | disposition home or self-care (01) ==
LOC: LAB 15:11
PROVIDERS: PCP Family Medicine; Referring Provider Nurse Practitioner Family; Visit Provider Nurse Practitioner Family
DX: E78.5 Hyperlipidemia, unspecified (principal)
CPT/HCPCS: 36415; 80061; 80076

== ENCOUNTER 2024-04-12 13:00 | Outpatient (RCR) | payer MEDICARE, OTHER, SELFPAY ==
[2024-03-14 00:10] VITALS: BP 104/70; BP 92/80
--- NOTE | 2024-04-06 10:06 | PCM.CR.ITP ---
Exercise - Initial Assessment Physician Prescribed Exercise Modalities: SciFit Stepper, SciFit Pro-II Ergometer and SciFit Lateral [place] Master Nutrition - Initial Assessment Weight Mgt (Other Care) Height: 6 ft Weight:: 180 lb 8 oz BMI: 24.5 Psychosocial - Initial Assess Target Goals Target Goals Referral to Behavioral Health PS - Interventions: Yes: Attend Stress Management Classes Patient Health Questionnaire PHQ-9 Screening 90-Day Re-eval Assessment: 1. Little interest or pleasure in doing things: Not at all 2. Feeling down, depressed, or hopeless: Not at all 3. Trouble falling or staying asleep, or sleeping too much: Not at all 4. Feeling tired or having little energy: Not at all 5. Poor appetite or overeating: Several days 6. Feeling bad about yourself -- or that you are a failure or have let yourself or your family down: Not at all 7. Trouble concentrating on things, such as reading the newspaper or watching television: Not at all 8. Moving or speaking so slowly that other people could have noticed. Or the opposite - being so fidgety or restless that you have been moving around a lot more than usual: Not at all 9. Thoughts that you would be better off , or of hurting yourself in some way: Not at all How difficult have these problems made it for you to do your work, take care of things at home, or get along with other people?: Somewhat difficult Total Score: 1 Self-Efficacy 6-Item Scale 90-Day Re-eval Assessment: We would like to know how confident you are in doing certain activities. Please select your confidence level for: Fatigue Select Number: 5 Physical Discomfort or Pain Select Number: 8 Emotional Distress Select Number: 9 Other Symptoms or Health Problems Select Number: 4 Different Tasks and Activities Select Number: 8 Medication Select Number: 8 Total Score:: 7 Nutrition Survey Nutrition Survey Instructions Scoring Instructions Exercise - 30-day Assessment Physician Prescribed Exercise Modalities: SciFit Stepper, SciFit Pro-II Ergometer and SciFit Lateral [place] Master Exercise - 60-day Assessment Physician Prescribed Exercise Modalities: SciFit Stepper, SciFit Pro-II Ergometer and SciFit Lateral [place] Exercise - 90-day Assessment Visit Date of Eval: 04/06/24 Session #:: 30 Physician Prescribed Exercise Modalities: SciFit Stepper, SciFit Pro-II Ergometer and SciFit Lateral [place] Frequency: 3x/week for 12 weeks [36 sessions] Intensity: 60-80% of age predicted maximum heart rate reserve Duration: 30 - 45 minutes Current METSs:: 3.9 Target Heart Rate:: 91-114 Current RPE:: 11.5-12.5 Maximum Excercise HR:: 82 Resting Blood Pressure: 118/76 Maximum Exercise Blood Pressure: 130/74 EKG Type: SB to NSR with occas pac and pvc Outcomes & Goals Goals:: Verbalizes understanding of THR, RPE & goal METS by session 6, Documents in home exercise log/reports 30 min aerobic 5 day/wk by DC, Demonstrates accurate pulse taking by DC and Other additional outcome/goals: see below Intervention & Plan Exercise Program Goals: Instruct on personal THR & RPE, Instruct on MET level & personal MET goal, Show patient to take own pulse /validate performance until accurate, Instruct on home exercise and Other additional plan/int Physical Activity Home Exercise Physical Activity - Home Exercise: Safe Exercise, Warm-up, Self-monitoring, Cool-Down, Home Exercise > 30 min Daily and Sitting Time <3 hours/daily Outcomes & Goals Outcomes/Goals: Demonstrates correct Warm-up/exercise Cool-Down (S3) if = 2.5 METs, Verbalizes symptoms of exercise intolerance by Session 3 (S3), Demonstrate safe equipment use (S3) & follows exercise prescrition (6) and Other: See below Intervention & Plan Plan/Intervention: Instruct warm-up & cool-down if exercising at > 2 METs, Instruct on symptoms of exercise intolerance & actions to take, Instruct & monitor on saf, Assess intial functional capacity & safety risk and Other See below 30-day Reassessments 30 day Reassessments:: Progressing Reassessment Notes & Comments:: Pt is doing very well. Encourage pt to continue to exercise upon graduation. Will discuss maintenance program. Exercise - Final/Discharge Physician Prescribed Exercise Modalities: SciFit Stepper, SciFit Pro-II Ergometer and SciFit Lateral [place] Nutrition - 30-Day Assessment Weight Mgt (Other Care) Height: 6 ft Weight:: 180 lb 8 oz BMI: 24.5 Nutrition - 60-Day Assessment Weight Mgt (Other Care) Height: 6 ft Weight:: 180 lb 8 oz BMI: 24.5 Core - 30-Day Assessment Hypertension [place] [employer] Hypertension Guidelines Reassessment Notes & Comments:: Pt's bp's are within AHA normal limits. Will continue to encourage pt to eat a low sodium heart healthy diet. Core - Final Assessment Hypertension [place] [employer] Hypertension Guidelines Reassessment Notes & Comments:: Pt's bp's are within AHA normal limits. Will continue to encourage pt to eat a low sodium heart healthy diet. Core - 90 Day Assessment Visit Date of Eval: 04/06/24 Session #:: 30 Medication Compliance Preventative Medication(s):: Aspirin and Statin/lipid H/O mental health issues: depression, anxiety, or addiction?: Yes Doesn?t believe in the benefits of treatment?: No Believes medications are unnecessary or harmful?: No Has a concern about medication side effects?: No Expresses concern over the cost of medications?: No Outcomes/Goals: Verbalizes medications,desired effect & common side effects @ DC, Pt self-reports following medication regimen, Keeps card in wallet w/medications listed by DC and Other additional outcome/goals: Interventions/plans: Instruct on medication effects & side effects, Review medication list w/patient every two weeks, Instruct importance of taking meds as ordered & assist problem solving and Other additional Tobacco Use Tobacco Use: Non-smoker Years Smokin Hypertension Resting Blood Pressure:: 118/76 [place] [employer] Hypertension Guidelines Peak Exercise Blood Pressure:: 130/74 Outcomes/Goals: Able to verbalize/achieve optimal blood pressure <130/80, Incorporates diet changes & exercise for blood pressure control by DC and Other additional outcomes/goals Interventions/plan: Instruct on optimal blood pressure, hypertension & medications, Instruct on effects of sodium, alcohol, stress, exercise &hypertension and Other additional plan/interventions 30 day Reassessments:: Met Reassessment Notes & Comments:: Pt's bp's are within AHA normal limits. Will continue to encourage pt to eat a low sodium heart healthy diet. Tobacco Cessation Referral Smoking Cessation Referral:: No Individual Education/Counseling:: No Education Schedule Given:: Yes Psychosocial - 30-Day Assess Target Goals Target Goals Referral to Behavioral Health PS - Interventions: Yes: Attend Stress Management Classes Psychosocial - 60-Day Assess Target Goals Target Goals Referral to Behavioral Health PS - Interventions: Yes: Attend Stress Management Classes Psychosocial - -Day Assess VIsit Date of Eval: 04/06/24 Session #:: 30 History of previous Mental disease:: Yes History of Emotional Disorders: Depression Target Goals Target Goals Psychosocial Test Tool Used:: [employer] QOL Cardiac and PHQ-9 Questionnaire phq-9 Severity Referral to Behavioral Health PS - Interventions: Yes: Attend Stress Management Classes Outcomes/Goals: See list Psychosocial Outcomes/Goals:: ID's personal stressors & 2 strategies to manage stress by discharge and Other Additional outcome/goals: Intervention/Plan: See List Interventions/Plan:: Assess stressors,coping strategies & signs of derpression on admission, Instruct/assist pt to develop coping & personal stress Mgt strategies, Refer to Behavioral Health if appropriate, Refer to Physician if appropriate, Instruct patient to recognize signs & symptoms of depression, Instruct patient to recog and Other additional plan/intervention 30-day Reassessments: 30 day Reassessments:: Met Reassessment Notes & Comments:: Pt is on meds for depression and doing well Psychosocial - Final Assessmen Target Goals Target Goals Referral to Behavioral Health PS - Interventions: Yes: Attend Stress Management Classes Nutrition - 90-Day Assessment Program Goals Nutrition Program Goals Patient has diagnosis of Hyperlipidemia (ICD E78)?: Yes Visit Date of Eval: 04/06/24 Session #:: 30 Cholesterol/Lipids (Other Core Measures) Determine presence & major risk factors that modify LDL goal: Cigarette smoking, Hypertension or hypertensive medication, Low HDL cholesterol <40 mg/dL*, Family history of premature CHD in Male < 55 years: female <65 yearsFa and Age men > 45 years; women >/= 55 years Outcomes/Goals: Pt IDs own risk factors & lifestyle modifications by Session 10, Verbalizes symptoms of angina & response by session 3., Pt independently manages and Other Additional Outcomes/Goals: Intervention/Plan: Advocate for lipid panel cholesterol medication if applicable, Instruct on personal lipid levels & lipid goals/NCEP guidelines, Instruct on cholesterol and Other additional plan/int Diabetes (Other Core Measures) Diabetes Type: Not Applicable Weight Mgt (Other Care) Height: 6 ft Weight:: 180 lb 8 oz BMI: 24.5 Diagnosis Overweight/Obesity BMI> 30% ICD-10 E66: No Diagnosis High BMI/Morbid Obesity BMI> 35% ICD-10 Z68: No Outcomes/Goals: Pt sets, maintains & shows weight loss goal & trend during rehab and Other additional outcomes/goals Intervention/Plan: Instruct on ideal BMI & set weight loss goal w/patient, Assist pt to ID & incorporate diet changes for weight loss by S9, Refer to Structured Weight Loss program as appropriate, Encourage goal of using 250-300dcal per session for weight loss and Other additional plan/interventions Healthy Eating Habits Will attend diet classes:: Yes Outcomes/Goals:: Consume diet rich in vegs,fruits,whole grain/high fiber,fish,lean meat, Limit sat/trans fats,cholesterol & added salts & sugars and Other additional outcome/goals: 30-day Reassessments:: Met Reassessment Notes & Comments:: Pt is at a healthy weight. Will encourage pt to continue to eat a low sodium heart healthy diet. Education Gave educational materials for:: Signs & symptoms of hypoglycemia, Signs & symptoms of hyperglycemia, Relate diabetes to coronary artery disease and Healthy eating Nutrition - Final Assessment Weight Mgt (Other Care) Height: 6 ft Weight:: 180 lb 8 oz BMI: 24.5
[2024-04-06 10:22] VITALS: BP 118/76; BMI 24.5
== END 2024-04-13 23:59 ==
LOC: CR 13:00
PROVIDERS: PCP Family Medicine; Referring Provider Internal Medicine Cardiovascular Disease; Visit Provider Internal Medicine Cardiovascular Disease
DX: I25.10 Atherosclerotic heart disease of native coronary artery without angina pectoris (principal); Z95.1 Presence of aortocoronary bypass graft; G35 Multiple sclerosis
CPT/HCPCS: 93798

== ENCOUNTER 2024-04-23 13:00 | Outpatient (RCR) | payer MEDICARE, SELFPAY ==
[2024-04-06 10:22] VITALS: BMI 24.5
[2024-04-14 00:09] VITALS: BP 104/70; BP 118/76; BP 92/80
== END 2024-05-14 23:59 ==
LOC: CR 13:00
PROVIDERS: PCP Family Medicine; Referring Provider Internal Medicine Cardiovascular Disease; Visit Provider Internal Medicine Cardiovascular Disease
DX: I25.10 Atherosclerotic heart disease of native coronary artery without angina pectoris (principal); Z95.1 Presence of aortocoronary bypass graft; G35 Multiple sclerosis

== ENCOUNTER → 2024-07-27 | Outpatient (CLI) | payer MEDICARE, OTHER, SELFPAY ==
[2024-04-06 10:22] VITALS: BMI 24.5
[2024-07-27 13:40] LABS: AST(SGOT) 29 U/L (<=37); Alanine Aminotransfer ALT/SGPT 23 U/L (<=46); Albumin, Serum 4.6 g/dL (3.4-4.8); Alkaline Phosphatase 126 U/L (40-129); Bilirubin, Direct 0.18 mg/dL (0.00-0.30); Cholesterol 115 mg/dL (<=200); Globulin 3.3 g/dL (2.2-4.2); High Density Lipoprotein 53 mg/dL; Low Density Lipoprotein Calc. 47 mg/dL; Protein, Total 7.9 g/dL (5.9-8.4); Total Bilirubin 0.46 mg/dL (0.00-1.30); Triglycerides 78 mg/dL; Very Low Density Lipoprotein 16 mg/dL (5-40); cholesterol:hdl ratio screen 2.18
== END | disposition home or self-care (01) ==
LOC: LAB 11:30
PROVIDERS: PCP Family Medicine; Referring Provider Nurse Practitioner Family; Visit Provider Nurse Practitioner Family
DX: E78.00 Pure hypercholesterolemia, unspecified (principal)
CPT/HCPCS: 36415; 80061; 80076

== ENCOUNTER 2025-02-01 10:22 | Inpatient (IN) | payer MEDICARE, OTHER, SELFPAY ==
[2024-04-06 10:22] VITALS: BMI 24.5
[2025-02-01] VITALS (27 sets, daily range): BP systolic 67–149; BP diastolic 47–88; PULSE 88–994; RESP 16–26; TEMP 35–38; O2SAT 91–100; BMI 25.0; BMI 24.0
--- NOTE | 2025-02-01 10:40 | EKG12_ITS ---
Test Reason : STOKE Blood Pressure : */* mmHG Vent. Rate : 94 BPM Atrial Rate : 94 BPM P-R Int : 128 ms QRS Dur : 74 ms QT Int : 362 ms P-R-T Axes : 55 -12 56 degrees QTcB Int : 452 ms Normal sinus rhythm Normal ECG Confirmed by Anatoly Taylor ([id number]), avid editor GUILLERMINA ALEXANDRE ([id number]) on 02/02/2025 1:40:58 PM Referred By: Confirmed By: Anatoly Taylor
--- NOTE | 2025-02-01 10:40 | CT_ITS ---
PROCEDURE: STROKE BRAIN/HEAD WITHOUT CONT 02/01/2025 REASON FOR EXAM: NEURO DEFICIT, ACUTE, STROKE SUSPECTED TECHNIQUE: Procedure Code: CTBR.ST Modality: CT Procedure: STROKE BRAIN/HEAD WITHOUT CONT Coronal and Sagittal reconstruction series were provided. One or more dose reduction techniques were used (e.g., Automated exposure control, adjustment of the mA and/or kV according to patient size, use of iterative reconstruction technique. RADIATION DOSE SUMMARY: CTDlvol: 44.99 mGy DLP: 846.73 mGycm COMPARISON: None FINDINGS: Brain: Low density in the periventricular white matter suggests mild chronic small vessel ischemic changes. Mild cerebellar atrophy. CSF Spaces: Mild generalized cerebral atrophy Sinuses/Mastoids: Clear at visualized levels Bones: Unremarkable CT/STROKE Brain/Head without Cont IMPRESSION: CHRONIC CHANGES. NO ACUTE FINDINGS. Red Alert: Chronic changes The critical findings in the findings and impression above were relayed directl y by me by telephone to Felice Mcclain on 02/01/2025 at 10:53 am with readback verification. Reading Location: [place] [id number]
--- NOTE | 2025-02-01 10:41 | CT_ITS ---
PROCEDURE: STROKE CTA HEAD AND NECK W/CON 02/01/2025 REASON FOR EXAM: NEURO DEFICIT, ACUTE, STROKE SUSPECTED TECHNIQUE: Procedure Code: [id number].ST.HN Modality: CT Procedure: STROKE CTA HEAD AND NECK W/CON Multiplanar Sagittal and Coronal images were obtained. 3D post processing was performed CONTRAST: Isovue 370 VOLUME: 100 mL One or more dose reduction techniques were used (e.g., Automated exposure control, adjustment of the mA and/or kV according to patient size, use of iterative reconstruction technique). RADIATION DOSE SUMMARY: CTDlvol: 17.4 mGy DLP: 756.7 mGycm COMPARISON: Prior CT scan of the brain done earlier in the day. FINDINGS: Aortic Arch: Normal size and branching pattern. Mild atherosclerotic plaque. Brachiocephalic and Subclavians: Unremarkable RIGHT Carotid: Right CCA: Unremarkable. Right ICA: Mild calcified and soft plaque. Maximum stenosis (NASCET): 50 % Right ECA: Unremarkable. LEFT Carotid: Left CCA: Unremarkable. Left ICA: Mild calcified and soft plaque. Maximum stenosis (NASCET): 50 % Left ECA: Unremarkable. Vertebrals: Codominant. Arise from the subclavians. Both vertebrals form the basilar. RIGHT Vertebral: Unremarkable. LEFT Vertebral: Unremarkable. Anatomy: [place] anatomy is normal. Aneurysm or avm: No intracranial aneurysms or large vascular malformations are identified. Anterior cerebral arteries: Unremarkable: Middle cerebral arteries: Unremarkable. Basilar artery: Unremarkable. Posterior cerebral arteries: origin of the right posterior cerebral artery. Other major branches of the posterior circulation: Unremarkable. Major venous structures: Unremarkable. Other findings: Neck: Lungs: Bones: CT/STROKE CTA Head AND Neck W/Con IMPRESSION: Mild degree of plaque calcification at the bifurcations bilaterally causing les s than 50% luminal narrowing. Reading Location: [place] [id number]
--- NOTE | 2025-02-01 10:42 | ED.VIS.STROK ---
HPI History of Present Illness Chief Complaint: Dizziness Detail of Chief Complaint: Dizziness, room spinning with double vision Informant: patient and family Onset/Context/Timing Onset: Today Context: Sudden Onset Timing: Continuous Quality and Location: Positive for Slurred Speech, Difficulty with Ambulation and - (Complained of diplopia when the room was spinning.) Onset: 935 per daughter Current Severity: Mild Maximum Severity: Severe Worsened by: Nothing Relieved by: Nothing Associated Symptoms Associated Symptoms: Positive for Headache (Hit his head when he fell backwards) and Nausea; Negative for Vomiting or Chest Pain Narrative Narrative: Patient is a 69-year-old male. He was recently hospitalized in [place] for upper GI bleed due to ibuprofen. He takes ibuprofen because of his pain. He is anticoagulants discontinued because he had an upper GI bleed. He is still on Plavix. He states he went into the restroom. He was standing to urinate. He states he was unable to urinate. He then became dizzy. When asked to define dizziness he reports the room spinning. He had double vision. He states when he went to turn off the water valve since he broke the toilet when he fell he saw 2 shut off valves. Daughter states his speech was slurred and he was confused. Patient is not a good informant. He thought this started at 8:00. Daughter states it started 936 based on phone conversation with mother. He does have a history of MS. He has a foot drop on the right side. According to the daughter he has decubiti because he does not do much and just sits. He is not compliant with his medication. He will not eat unless his makes him meals. Prior similar symptoms: No Recent Illness/Hospitalization: Yes (Earlier this year for GI bleed.) [facility] Medical History Postoperative atrial fibrillation Leptospirosis Atherosclerosis of coronary artery of [place] heart without angina pectoris Seizures Multiple sclerosis Home Medications Medication Instructions Recorded Last Taken Type citalopram 40 mg tablet 40 mg PO DAILY depression 11/21/23 11/21/23 History dimethyl fumarate 240 mg 240 mg PO BID ms 11/21/23 11/21/23 History capsule,delayed release zonisamide 100 mg capsule 300 mg PO QHS seizures 11/21/23 Unknown History zonisamide 100 mg capsule 200 mg PO QDAY seizures 04/01/24 Unknown History tizanidine 2 mg capsule 2 mg PO ONCE 08/03/24 Unknown History atorvastatin 80 mg tablet 80 mg PO QHS #90 tabs 01/18/25 Unknown Rx clopidogrel 75 mg tablet (Plavix) 75 mg PO QDAY #90 tabs 01/18/25 Unknown Rx Allergy/AdvReac Type Severity Reaction Status Date / Time No Known Allergies Allergy Verified 02/01/25 10:26 Family History Mother Multiple myeloma Father CVA (cerebral vascular accident) Brother CAD (coronary artery disease) History of coronary artery bypass surgery Surgical History History of tonsillectomy History of total splenectomy History of left heart catheterization (~11/24/23) History of coronary artery bypass surgery (~11/26/23) Social History household members: spouse Smoking Status: Former smoker how long ago did patient quit smokin years ago alcohol intake: current alcohol intake frequency: holidays/special occasions only substance use type: does not use caffeine: Yes Type: carbonated beverages Number of servings: 1 and coffee Number of servings: 1 ROS ROS ED Constitutional Constitutional ED: Denies chills, fever(s), subjective, sweats or weakness Eyes Eyes: Reports diplopia; Denies blurry vision or change in vision ENT ENT ED: Denies ear pain, rhinorrhea or sore throat Cardiovascular Cardiovascular: Denies chest pain, palpitations, paroxysmal nocturnal dyspnea or racing heartbeat Respiratory/Chest Respiratory/Chest: Denies cough, dyspnea, dyspnea on exertion or paroxysmal nocturnal dyspnea Gastrointestinal Gastrointestinal: Reports nausea; Denies abdominal pain, melena or vomiting Genitourinary Genitourinary ED: Denies dysuria, hematuria or urinary frequency Musculoskeletal Musculoskeletal: Denies arthralgias or myalgias Integumentary Denies Abrasions or rash Neurologic Neurologic: Reports weakness and other Details: History of foot drop right lower extremity due to MS ; Denies headache(s) or paresthesias Psychiatric Psychiatric: Reports depression Hematologic/Lymphatic Hematologic/Lymphatic: Denies easy bleeding or easy bruising EXAM Physical Exam Const Vital Signs: 02/01/25 10:24 02/01/25 10:54 02/01/25 11:05 Temperature 98.6 F Temperature Source Oral Pulse Rate 96 Respiratory Rate 16 Blood Pressure 112/77 117/63 Blood Pressure Mean 88 81 Pulse Ox 100 Oxygen Delivery Method Room Air Room Air Positive well nourished and well developed General Appearance ED: well developed and NAD HEENT Reports moist mucous membranes atraumatic Eyes PERRL and EOMs intact bilaterally Eyes Narrative: There is no nystagmus General Eye ED: Negative for pale conjunctiva or scleral icterus Neck no lymphadenopathy, supple and no JVD Chest Wall inspection of chest normal and palpation of chest normal Resp normal respiratory effort and clear to auscultation bilaterally Cardio no murmurs Rate: regular rate Rhythm: regular rhythm Heart Sounds: S1 normal and S2 normal GI normal to inspection, nondistended, normoactive bowel sounds, soft to palpation, non-tender, non-distended and no masses Back/Spine no CVA tenderness Extremity normal to inspection General Extremety ED: Negative for deformity General Extremity: Negative for deformity Neuro oriented x3, CN's II-XII intact bilaterally and no sensory deficits noted Sensorium / Orientation: alert Speech: speech normal Motor Exam: Negative for strength 5/5 throughout Psych mental status grossly normal Skin no wounds MDM MDM MDM Narrative Medical decision making narrative: Patient initially had diplopia and vertigo. Daughter states his speech was slurred and had trouble with words. This is after he hit his head. He is on Plavix. With head trauma need to rule out intracranial bleed i.e. subdural, epidural, intraparenchymal contusion and traumatic subarachnoid hemorrhage. The abnormalities noted on neuroexam may be due to his MS. He does have a Babinski on the right. No one's documented Babinski sign on prior exam. Also need to entertain possibility of vertebrobasilar insufficiency therefore will obtain CTA of the head and neck along with the CAT scan. Patient is not a good informant. Daughter had to supplement. Patient gave wrong times for event and duration. Lab Data Attestation: I reviewed the patient's lab results. Lab results narrative: CBC reveals an elevated white count of 15.7. H&H is 8.2 and 26.6. Coags are unremarkable. Glucose was 111. Labs: Laboratory Results - last 24 hr 02/01/25 02/01/25 10:44 10:52 WBC 15.7 H RBC 3.21 L Hgb 8.2 L Hct 26.6 L MCV 82.9 MCH 25.5 L MCHC 30.8 L RDW Std Deviation 62.4 H RDW Coeff of Micheal 20.6 H Plt Count 319 MPV 9.8 Immature Gran % (Auto) 0.400 Neut % (Auto) 91.9 H Lymph % (Auto) 3.6 L [place] % (Auto) 3.8 Eos % (Auto) 0.0 Baso % (Auto) 0.3 Absolute Neuts (auto) 14.4 H Absolute Lymphs (auto) 0.57 L Nucleated RBC % 0 RBC Morphology N CYTIC Acanthocytes (Spur) 1+ Schistocytes 1+ PT 15.9 H INR 1.2 APTT 21.8 L Sodium 134 Potassium 4.9 Chloride 107 Carbon Dioxide 18.0 L Anion Gap 9 BUN 65 H Creatinine 0.88 Estim Creat Clear Calc 86.96 Est GFR (MDRD) Non-Af 93 BUN/Creatinine Ratio 74.3 H Glucose 123 H Calcium 7.9 Troponin T High Sens 11 POC Glucose 111 H Radiography Diagnostic Testing: Clinical Impression(s) from Imaging Studies Brain CT 02/01/25 10:40 IMPRESSION: CHRONIC CHANGES. NO ACUTE FINDINGS. Red Alert: Chronic changes The critical findings in the findings and impression above were relayed directly by me by telephone to Felice Mcclain on 02/01/2025 at 10:53 am with readback verification. Reading Location: [facility] Head/Neck CTA 02/01/25 10:41 IMPRESSION: Mild degree of plaque calcification at the bifurcations bilaterally causing less than 50% luminal narrowing. Reading Location: [facility] Management Discussion w/another healthcare provider: Hospitalist (Security Sergeant was asked to page the hospitalist [phone] for admission. Spoke with Dr. Staples at [phone]. I informed him I did not do orthostatics and I did not have the nurse do a bladder scan.), Chronic Disease Epidemiologist (Dr. Sameer Escoto, [facility] stroke neurologist recommended MRI with and without contrast with history of MS to see if this is an MS flare versus problem with posterior circulation. His NIH was 0) and Radiologist (Received call from radiologist regarding CT minus of the head which revealed right matter disease.) Treatment and Re-Evaluation Narrative: I was informed by nursing staff patient straining to have a bowel movement and had a vasovagal near syncopal episode. He was diaphoretic, hypotensive. He did not have vertiginous symptoms. Discharge Plan Dx/Rx/DC Orders Clinical Impression: Vertigo, Diplopia, CHI (closed head injury), Multiple sclerosis, History of coronary artery bypass surgery, Hyperlipidemia, Anemia Disposition Disposition: Acute Care Hospital [facility] NIHSS NIHSS 1a. Level of Consciousness: 0 - Alert; keenly responsive 1b. LOC Questions: 1 - Answers ONE question correctly 1c. LOC Commands: 0 - Performs BOTH tasks correctly 2. Best Gaze: 0 - Normal 3. Visual: 0 - No visual loss 4. Facial Palsy: 0 - Normal symmetrical movements 5a. Left Arm: 0 - No drift; arm holds 90 (or 45) degrees for full 10 seconds 5b. Right Arm: 0 - No drift; arm holds 90 (or 45) degrees for full 10 seconds 6a. Left Le - No drift; leg holds 30-degree position for full 5 seconds 6b. Right Le - No drift; leg holds 30-degree position for full 5 seconds 7. Limb Ataxia: 1 - Present in 1 limb 8. Sensory: 0 - Normal; no sensory loss 10. Dysarthria: 0 - Normal 11. Extinction and Inattention: 0 - No abnormality Total: 2 Stroke Questions Stroke Team Activated: Yes Reviewed Inclusion/Exclusion criteria: Yes
[2025-02-01 11:01] LABS: Hematocrit 26.6 % (40-54); Hemoglobin 8.2 g/dL (13.0-16.5); Immature Granulocytes Count 0.070 X10^3/uL (0.0-0.0); Mean Corp Hgb Conc 30.8 g/dL (32-36); Mean Corpuscular Volume 82.9 fL (80-94); Mean Platelet Vol. 9.8 fl (6.2-12.0); NRBC Flagged by Analyzer 0 % (0-5); POSITIVE DIFFERENTIAL YES; POSITIVE MORPHOLOGY YES; Platelet Count 319 K/mm3 (150-450); RBC Distribution Width CV 20.6 % (11.6-14.6); RBC Distribution Width SD 62.4 fl (35.1-43.9); Red Blood Count 3.21 M/mm3 (4.6-6.2); White Blood Count 15.7 K/mm3 (4.4-11.0)
[2025-02-01 11:03] LABS: Differential Indicated SCAN CRITERIA MET
[2025-02-01 11:10] LABS: Partial Thromboplast Time 21.8 Seconds (24.1-36.2); Prothrombin Time (Protime)PT. 15.9 SECONDS (11.7-14.9)
[2025-02-01 11:37] LABS: Acanthocytes 1+; Schistocytes 1+
[2025-02-01 11:38] LABS: Red Cell Morphology N CYTIC NORMAL (NORM C&C)
[2025-02-01 11:39] LABS: Anion Gap 9 (5-15); BUN 65 mg/dL (4-19); BUN/Creat Ratio 74.3 RATIO (10-20); Calcium,Total 7.9 mg/dL (7.6-11.0); Carbon Dioxide 18.0 mmol/L (21.0-32.0); Chloride 107 mmol/L (98-108); Estimated Creatinine Clearance 86.96 ml/min (50-250); Glucose 123 mg/dL (70-99); Potassium 4.9 mmol/L (3.3-5.1); Troponin T High Sensitivity 11 ng/L (<=22)
--- NOTE | 2025-02-01 12:02 | ED.RN ---
Pt. assisted up to bedside commode by tech and had a large brown BM. pt. became dizzy, pale. Pt. was assisted back to bed and dr sullivan notified of event. Pt. began to feel better within a couple minutes. VSS
--- NOTE | 2025-02-01 12:15 | CM.ED ---
Social work Reason for referral: stroke alert 1050: SW responded to stroke alert and observed patient being taken to imaging. SW entered patient's room, introducing self and role at [facility] to patient's son, Arturo, and patient's daughter in law, Marie, who were bedside. Arturo and Marie stated this being their first experience with a stroke alert and SW explained the process. Arturo stated patient's , Manasa, was out of town today. SW actively listened to Arturo and Marie, offering support as needed. 1210: SW entered patient's room, introducing self to patient who was observed lying comfortably in bed. Arturo remained bedside. SW asked patient if Arturo and Marie could be added to patient's emergency contacts in case an emergency arose today where Manasa was not in the area. Patient gave permission and Arturo shared contact information. SW added to patient's chart. No further needs identified at this time. Yenifer De La Cruz, DATA DELIVERABLES MANAGER, [employer]
--- NOTE | 2025-02-01 12:16 | PCM.HP.STD ---
HPI - General General Date of Admission: 02/01/25 Date of Service: 02/01/25 Chief Complaint: Presyncopal symptoms HPI Narrative JUANITA JAY, is a 69 M who presented to [facility] ED on 02/01/2025 with presyncopal symptoms. Medical history is significant for CAD with CABG x 2 in November 2023, multiple sclerosis, seizure disorder and anxiety/depression. Patient was last hospitalized here in November 2023 for chest pain was found at the time to have multivessel disease. He was then transferred to [facility] and had cardiac bypass surgery done with good result. He has been following with cardiology here since then with last office visit in July. Importantly, patient spends some time over the winter in [place], and he had an upper GI bleed with acute blood with anemia in May while in [place]. Unfortunately I am not able to see these records. It appears the patient was taken off Plavix at that time. It was suspected the upper GI bleed was secondary to patient using ibuprofen for pain control. Unclear if the patient has been on a PPI since then. Patient presented to the ED today after having episode at home of dizziness and feeling like he was going to pass out while trying to urinate. His daughter was there and noted that his speech was slurred and he was confused at that time, so they brought him in for further evaluation. In the ED he was mildly hypertensive to the 100 systolic and mildly tachycardic to the 90s, was otherwise stable on room air at rest. There was initially concern for a possible stroke. CT brain and CT head/neck were unremarkable. Patient was evaluated by [facility] neurology who recommended MRI brain with and without contrast to evaluate for stroke and also for possible MS flare. Patient notably has no history of MS flares. However, shortly after arrival to the ED patient had a large moderately dark bowel movement. Labs notable for hemoglobin 8.2. [facility] records reviewed; most recent hemoglobin 10.2 back in August. Patient then had another large bowel movement and had presyncopal symptoms while straining to have this bowel movement that were very similar to his symptoms at home. Stool occult positive. Thus, highest concern was for upper GI bleed. Patient started on a Protonix drip, and repeat H&H showed hemoglobin drop down to 7.5. Hospitalist was then contacted for admission. I saw the patient at bedside in the ED, son was present. Patient was mildly fatigued appearing but otherwise sitting back comfortably in bed, conversing normally, in no acute distress. Patient reports similar history with these dark bowel movements with his prior GI bleed. He denies any lightheadedness or dizziness at rest currently. No other acute concerns currently. Will be admitted for further management. [facility] Medical History Postoperative atrial fibrillation Leptospirosis Atherosclerosis of coronary artery of [place] heart without angina pectoris Seizures Multiple sclerosis Home Medications Medication Instructions Recorded Last Taken Type citalopram 40 mg tablet 40 mg PO DAILY depression 11/21/23 11/21/23 History dimethyl fumarate 240 mg 240 mg PO BID ms 11/21/23 11/21/23 History capsule,delayed release zonisamide 100 mg capsule 300 mg PO QHS seizures 11/21/23 Unknown History zonisamide 100 mg capsule 200 mg PO QDAY seizures 04/01/24 Unknown History tizanidine 2 mg capsule 2 mg PO ONCE 08/03/24 Unknown History atorvastatin 80 mg tablet 80 mg PO QHS #90 tabs 01/18/25 Unknown Rx clopidogrel 75 mg tablet (Plavix) 75 mg PO QDAY #90 tabs 01/18/25 Unknown Rx Allergy/AdvReac Type Severity Reaction Status Date / Time No Known Allergies Allergy Verified 02/01/25 10:26 Family History Mother Multiple myeloma Father CVA (cerebral vascular accident) Brother CAD (coronary artery disease) History of coronary artery bypass surgery Surgical History History of tonsillectomy History of total splenectomy History of left heart catheterization (~11/24/23) History of coronary artery bypass surgery (~11/26/23) Social History household members: spouse Smoking Status: Former smoker how long ago did patient quit smokin years ago alcohol intake: current alcohol intake frequency: holidays/special occasions only substance use type: does not use caffeine: Yes Type: carbonated beverages Number of servings: 1 and coffee Number of servings: 1 ROS Constitutional Constitutional: Reports fatigue; Denies chills, fever(s) or weakness Cardiovascular Cardiovascular: Denies chest pain Respiratory/Chest Respiratory/Chest: Denies shortness of breath at rest Gastrointestinal Gastrointestinal: Reports melena and nausea; Denies abdominal pain or vomiting Genitourinary Genitourinary: Reports difficulty urinating; Denies dysuria Musculoskeletal Musculoskeletal: Denies arthralgias or myalgias Neurologic Neurologic: Reports dizziness; Denies focal weakness, headache(s), numbness or tingling Vital Signs Vital Signs Vital Signs: 02/01/25 10:24 02/01/25 10:54 02/01/25 11:05 Temperature 98.6 F Temperature Source Oral Pulse Rate 96 Respiratory Rate 16 Blood Pressure 112/77 117/63 Blood Pressure Mean 88 81 Pulse Ox 100 Oxygen Delivery Method Room Air Room Air 02/01/25 12:00 Temperature Temperature Source Pulse Rate 95 Respiratory Rate 21 H Blood Pressure 115/66 Blood Pressure Mean 82 Pulse Ox 91 Oxygen Delivery Method Room Air Weight Weight: 83.5 kg Body Mass Index (BMI) 25.0 Physical Exam Const alert, oriented x3, no apparent distress and average body habitus Constitutional Narrative: Elderly male, mildly fatigued appearing, sitting back comfortably in bed, answering most questions appropriately but with some tangential speech noted, otherwise in no acute distress. General Appearance: cooperative and comfortable HEENT normocephalic, head/scalp atraumatic, hearing grossly normal bilaterally, nasal mucous membranes and turbinates normal and moist oral mucous membranes Eyes PERRL, EOMs intact bilaterally and conjunctivae normal Neck full ROM Chest inspection of chest normal Resp normal respiratory effort, normal air movement, no use of accessory muscles and clear to auscultation bilaterally Cardio no murmurs and peripheral pulses 2+ throughout Cardio Narrative: Tachycardic, regular rhythm. GI normal to inspection, nondistended, normoactive bowel sounds, soft to palpation, non-tender and non-distended Back/Spine normal ROM Extremity normal to inspection, full ROM and no pedal edema Skin no rashes or lesions noted Neuro oriented x3, CN's II-XII intact bilaterally, moves all extremities and no focal motor deficits Coordination / Balance: [id number] test normal and [id number] test normal Motor Exam: strength 5/5 throughout Psych mental status grossly normal Results Lab / Micro Data 02/01/25 13:24 02/01/25 10:52 Labs: Laboratory Results - last 24 hr 02/01/25 10:44: POC Glucose 111 H 02/01/25 10:52: WBC 15.7 H, RBC 3.21 L, Hgb 8.2 L, Hct 26.6 L, MCV 82.9, MCH 25.5 L, MCHC 30.8 L, RDW Std Deviation 62.4 H, RDW Coeff of Micheal 20.6 H, Plt Count 319, MPV 9.8, Immature Gran % (Auto) 0.400, Neut % (Auto) 91.9 H, Lymph % (Auto) 3.6 L, [place] % (Auto) 3.8, Eos % (Auto) 0.0, Baso % (Auto) 0.3, Absolute Neuts (auto) 14.4 H, Absolute Lymphs (auto) 0.57 L, Nucleated RBC % 0, RBC Morphology N CYTIC, Acanthocytes (Spur) 1+, Schistocytes 1+, PT 15.9 H, INR 1.2, APTT 21.8 L, Sodium 134, Potassium 4.9, Chloride 107, Carbon Dioxide 18.0 L, Anion Gap 9, BUN 65 H, Creatinine 0.88, Estim Creat Clear Calc 86.96, Est GFR (MDRD) Non-Af 93, BUN/Creatinine Ratio 74.3 H, Glucose 123 H, Calcium 7.9, Troponin T High Sens 11 Imaging Radiology Impression Brain CT 02/01/25 10:40 IMPRESSION: CHRONIC CHANGES. NO ACUTE FINDINGS. Red Alert: Chronic changes The critical findings in the findings and impression above were relayed directly by me by telephone to Felice Mcclain on 02/01/2025 at 10:53 am with readback verification. Reading Location: [facility] Head/Neck CTA 02/01/25 10:41 IMPRESSION: Mild degree of plaque calcification at the bifurcations bilaterally causing less than 50% luminal narrowing. Reading Location: [facility] Assessment & Plan Assessment/Plan (1) Acute blood loss anemia: (2) Upper GI bleed: PLAN: Plan Patient is a 69-year-old male who presented to [facility] ED on 02/01/2025 with presyncopal symptoms. 1. Acute blood loss anemia suspected secondary to recurrent upper GI bleed – Admit under inpatient status to ICU. GI consulted. Patient with reported history of ABLA secondary to upper GI bleed in May done in [place], records requested. Per family, GI bleed was attributed to home plavix and ibuprofen use secondary to chronic pain. Family thought that Plavix was discontinued at that time but notably on recent PCP office note from 11/12 it was noted that he was still on Plavix. Hemoglobin 8.2 on admit, most recent baseline hemoglobin 10.2 in August per [facility] records. Patient had 2 large dark bowel movements in the ED and repeat H&H 2 hours later showed hemoglobin 7.5. Patient initiated on Protonix drip and will transfuse 1 unit of blood at this time. Trend H&H every 6 hours through tomorrow morning. N.p.o. status for now with tentative plan for EGD tomorrow if patient remains stable overnight. Will monitor closely. 2. Acute urinary retention – Patient with difficulty urinating on arrival to the ICU and bladder scan showed approximately 300 cc of urine in the bladder. Given his presyncopal symptoms with getting out of bed in setting of acute anemia as above, Mckinney catheter placed. Will monitor. 3. History of CAD with CABG, hyperlipidemia – Follows with outpatient cardiology. History of CABG x 2 in November 2023 at [facility]. Patient has been stable from a cardiac standpoint since that time. Continue home statin. Hold home Plavix. 4. Multiple sclerosis – Follows with neurology at the [facility]. Was diagnosed back in 2018. No history of MS flares per patient report. Per PCP note from 11/12, patient is on dimethyl fumarate for this and has generally been doing well. He does have some balance issues and has had a few minor falls, but he regularly engages in physical therapy and is able to perform household task independently. Continue home medication. 5. Anxiety/depression – Stable. Continue home citalopram. 6. Seizure disorder – Stable. Continue home zonisamide. DVT prophylaxis: SCDs CODE STATUS: Full code, verified Expected disposition: TBD Total clinical time spent by myself addressing the patient's medical issues, reviewing all the data, and collaborating with patient's care team: 77 minutes. Charges/Coding Visit Charges Inpatient E&M: 44969 Init Hosp L3
[2025-02-01 13:19] LABS: Ferritin 20 ng/mL (37-417); Iron 35 ug/dL (65-175); Iron Binding Capacity,Total 318 ug/dL (250-450); Iron Binding Capacity,Unsat 283 ug/dL (228-428)
--- NOTE | 2025-02-01 13:28 | ED.RN ---
pt. was found by tech to have got on bedside commode without assistance. pt. was found sitting on commode, arousable upon calling, pale, and diahoretic. blood pressure 67/47. This Rn, tech, and agricultural purchasing agent assisted pt. bback to bed. Dr. sullivan called to bedside to evaluate pt. condition. Bowel movement appears more black/green. IFOB ordered and sent and repeat H&H sent.
[2025-02-01 13:31] LABS: Troponin T High Sens 2 HR 15 ng/L (<=22)
[2025-02-01 13:45] LABS: Hematocrit 25.1 % (40-54); Hemoglobin 7.5 g/dL (13.0-16.5); POSITIVE MORPHOLOGY YES
[2025-02-01] MEDS: 0.9% Normal Saline (1000mL) 1,000 ML 999 ML IV (14:10)
--- NOTE | 2025-02-01 14:11 | ED.RN ---
pt son brought this RN aside and expressed concerns that pt. has been taking NSAIDs as "more than 50 excedrin are gone from a bottle that was given to patient in early december".
[2025-02-01] MEDS: Pantoprazole Sodium 80 MG in 0.9% Normal Saline (50mL Bag) 15 ML 420 MG IV BOLUS (14:40)
--- NOTE | 2025-02-01 14:46 | ED.RN ---
report called to [facility]
--- OUTSIDE RECORDS SUMMARY | 2025-02-01 15:04 | XMS RPT_ITS | CCD ---
Author Organization [facility] Care Team Providers Care Gardener Florist Name Role Phone Laverne Monroe MD Primary Care Provider YOUNG, TELLO Referring Unavailable BESCOOBY, KAILEY Attending Unavailable LAVERNE MONROE Primary Care Unavailable YOUNG, TELLO Referring Unavailable BESCOOBY, KAILEY Attending Unavailable LAVERNE MONROE Primary Care Unavailable YOUNG, TELLO Referring Unavailable BESCOOBY, KAILEY Attending Unavailable LAVERNE MONROE Primary Care Unavailable BEBB, KAILEY Attending Unavailable YOUNG, TELLO Referring Unavailable LAVERNE MONROE Primary Care Unavailable BEBB, KAILEY Attending Unavailable YOUNG, TELLO Referring Unavailable LAVERNE MONROE Primary Care Unavailable BEBB, KAILEY Attending Unavailable YOUNG, TELLO Referring Unavailable PANCHOTALAVERNE Sorenson Primary Care Unavailable BEBB, KAILEY Attending Unavailable YOUNG, TELLO Referring Unavailable PANCHOTALAVERNE Sorenson Primary Care Unavailable PANCHOTALAVERNE Sorenson Primary Care Unavailable BEBB, KAILEY Attending Unavailable YOUNG, TELLO Referring Unavailable YOUNG, TELLO Referring Unavailable BESCOOBY, KAILEY Attending Unavailable LAVERNE MONROE R Primary Care Unavailable YOUNG, TELLO Referring Unavailable BESCOOBY, KAILEY Attending Unavailable LAVERNE MONROE Primary Care Unavailable Laverne Monroe MD Primary Care Provider Unavailable Primary Care Provider Unavailabl e Inc[facility] Primary Care Provider Unav KHOA Salazar Attending Unavailable INC, [facility] Primary Care Unavailable Unavailable Primary Care Provider UnavailLaverne Porter MD Primary Care Provider LAVERNE MONROE MD Primary Care Physicia n MAYOR CARRILLO, JORDAN Castillo Admitting Unavailable JORDAN HENRY MD Attending Unavailable LAVERNE MONROE MD Primary Care Unava ilable MAYOR CARRILLO, JORDAN Castillo Consulting Unavailable JIGNESH CARRILLO, FABRICE Consulting Unavailable LESLIE SANCHES MD, SVEN Consulting Unavailable ELSY CARRILLO, MICHAEL [place] Consulting Unavailkaylah MONROE MD, LAVERNE [facility] Care Unava ilable DEENA ENNIS Attending Unavailable Fer CARRILLO, Laverne Licona Primary Care Provider [place] EMPLOYMENT OFFICE CLERK.DIRECTOR OF PATIENT CARE, Isaías Unavailable [phone] Fer CARRILLO, Dr. Joel Primary Care Provider [phone] Gabe CARRILLO, Dr. Cheney Attending Provider Gabe CARRILLO, Dr. Cheney Referring Provider [phone] Roof CAUSTICS LOADER-C, Zeferino Morales Attending Provider [phone] [place]ham CAUSTICS LOADER-C, Zeferino Morales Referring Provider [phone] Koby Amaya Attending Unavailabl e [place], [place] Primary Care Unavailable Koby Amaya Attending Unavailabl e [place], [place] Primary Care Unavailable Raz Staples Admitting Unavailable Nacho Issa Attending Unavailable [place], [place] Primary Care Unavailable Raz Staples Consulting Unavailable Merlin Mathias Consulting Unavailabl e Kaydene Koby BAIRD Attending Unavailabl e [place], [place] Primary Care Unavailable Oledaliae Beau BAIRDbe Attending Unavailabl e [place], [place] Primary Care Unavailable Oledaliae Koby BAIRD Attending Unavailabl e [place], [place] Primary Care Unavailable Beau Leonardbe Attending Unavailable [place], [place] Primary Care Unavailable Roof CAUSTICS LOADER, Zeferino Morales Attending Unavailable [place], [place] Primary Care Unavailable [place], [place] Referring Unavailable Tickton CAUSTICS LOADER, Morelia Attending Unavailable [place], [place] Primary Care Unavailable [place] CAUSTICS LOADER, [place] Attending Unavailable [place], [place] Primary Care Unavailable [place], [place] Primary Care Unavailable Gabe, Shravan Attending Unavailable Gabe, Shravan Referring Unavailable [place], [place] Primary Care Unavailable Gabe, [place] Attending Unavailable Gabe, [place] Referring Unavailable Roof CAUSTICS LOADER, Zeferino Morales Attending Unavailable Roof CAUSTICS LOADER, Zeferino H Referring Unavailable [place], [place] Primary Care Unavailable Gabe, [place] Attending Unavailable Gabe, [place] Referring Unavailable [place], [place] Primary Care Unavailable Roof CAUSTICS LOADER, Zeferino H Attending Unavailable Roof CAUSTICS LOADER, Zeferino H Referring Unavailable [place], [place] Primary Care Unavailable [place], [place] Primary Care Unavailable Gabe, [place] Attending Unavailable Gabe, [place] Referring Unavailable [place], [place] Primary Care Unavailable Gabe, Shravan Attending Unavailable Gabe, Shravan Referring Unavailable [place], [place] Primary Care Unavailable Gabe, Shravan Attending Unavailable Gabe, Shravan Referring Unavailable Camila CAUSTICS LOADERMorelia Attending Unavailable [place], [place] Primary Care Unavailable Oledaliae Beau BAIRDbe Attending Unavailabl e [place], [place] Primary Care Unavailable Oleghe OLSBeaube Attending Unavailabl e [place], [place] Primary Care Unavailable Camila CAUSTICS LOADER, [place] Attending Unavailable [place], [place] Primary Care Unavailable Oledaliae Beau BAIRDbe Attending Unavailabl e [place], [place] Primary Care Unavailable [place], [place] Referring Unavailable [place], [place] Primary Care Unavailable Adolph HUYNH, Capri Attending Unavailable Roof CAUSTICS LOADER, Zeferino H Attending Unavailable [place], [place] Referring Unavailable [place], [place] Primary Care Unavailable [place], [place] Primary Care Unavailable Merlin Mathias Attending UnavailRaz Pearson Admitting Unavailable [place], [place] Primary Care Unavailable Merlin Mathias Attending UnavailRaz Pearson Consulting Unavailable Nacho Issa Consulting Unavailable Nacho Issa Attending Unavailable Jose Mathiasapradee Consulting Unavailabl e Gabe, [place] Attending Unavailable Oleghe BRIE Efewongbe Attending Unavailabl e [place], [place] Primary Care Unavailable Raz Staples Attending Unavailable LAVERNE MONROE Primary Care Unavailable TELLO SLAUGHTER Attending Unavailable LAVERNE MONROE Primary Care Unavailable PANCHOTALAVERNE Sorenson Primary Care Unavailable LAVERNE MONROE R Attending Unavailable TELLO SLAUGHTER Attending Unavailable LAVERNE MONROE Primary Care Unavailable TELLO SLAUGHTER Referring Unavailable LAVERNE MONROE Primary Care Unavailable Allergies Allergy Classification Reported Allergen(s) Allergy Type Date of Onset Reaction(s) Facility (20 sources) carBAMazepine; Translations: [CARBAMAZEPINE] Drug Allergy 10-22-2011 Rash, Other: See Comments [facility] Work Phone: Medications Current Medications Medication Drug Class(es) Dates Sig (Normalized) Sig (Original) acetaminophen 650 mg oral tablet (2 sources) Start: 11-24-2023 take 1 dose by mouth every six hours as needed for pain acetaminophen Dose : 650 mg =, Oral, q6hr, PRN as needed for pain, 0 Refill(s) Start Date: 11/24/23 Status: Ordered amiodarone hydrochloride 200 mg oral tablet (1 source) Antiarrhythmic Start: 12-01-2023 take 1 tablet by mouth once daily amiodarone 200 mg oral tablet Dose : 400 mg = 2 tab(s), Oral, BID, Take 400 mg (2 tablets) 2 times a day through 12/07/2023 then starting 12/08/2023 take 200 mg (1 tablet) daily for 28 days, # 54 tab(s), 0 Refill(s) Start Date: 12/01/23 Status: Ordered aspirin 81 mg chewable tablet (20 sources) Platelet Aggregation Inhibitor, Nonsteroidal Anti-inflammatory Drug Start: 11-24-2023 aspirin 81 mg oral tablet, chewable Dose : 81 mg = 1 tab(s), Oral, Daily, # 90 tab(s), 0 Refill(s) Start Date: 11/24/23 Status: Ordered Start: 07-01-2017 End: 08-19-2024 take 1 tablet by mouth once daily aspirin, enteric coated (ADULT LOW DOSE ASPIRIN) 81 mg EC tablet Take 1 tablet by mouth once daily. 07/01/2017 08/19/2024 Discontinued End: 08-19-2024 ASPIRIN ORAL Take by mouth. For body aches 08/19/2024 Discontinued ASPIRIN ORAL Candace e by mouth. For body aches Active ASPIRIN ORAL Candace e by mouth. For body aches 0 Active Comment on above: Take 1 tablet by once daily. Take by mouth. For b jacqueline aches atorvastatin 80 mg oral tablet (20 sources) HMG-CoA Reductase Inhibitor Start: End: take 1 tablet by mouth at bedtime Atorvastatin 80 mg tablet Active 80 mg PO AT BEDTIME January 11, 2024 8:10am citalopram 20 mg oral tablet (20 sources) Serotonin Reuptake Inhibitor Start: take 1 tablet by mouth once daily citalopram (CELEXA) 20 mg tablet Take 1 tablet by mouth once daily. 90 tablet 11/10/2024 Active Start: 10-22-2023 End: 11-10-2024 take 1 tablet by mouth once daily citalopram (CELEXA) 40 mg tablet Indications: Examination of participant in clinical trial , Multiple sclerosis (HCC) TAKE 1 TABLET BY MOUTH EVERY DAY 90 tablet 1 10/13/2024 11/10/2024 Discontinued Start: 07-24-2023 take 1 tablet by maria m th once daily citalopram (CELEXA) 40 mg tablet Indications: Examination of participant in clinical trial , Multiple sclerosis (HCC) take 1 tablet by mouth every day 90 tablet 0 07/24/2023 Active Start: 06-27-2020 End: 07-09-2022 take 1 tablet by mouth once daily citalopram (CELEXA) 40 mg tablet Indications: Examination of participant in clinical trial , Multiple sclerosis (HCC) Take 1 tablet by mouth once daily. 90 tablet 3 03/30/2021 01/08/2022 Discontinued Comment on above: Take 1 tablet by maria m once daily. take 1 tablet by maria m th every day clopidogrel 75 mg oral tablet (20 sources) P2Y12 Platelet Inhibitor Start: 12-01-19 take 1 tablet by mouth once daily Clopidogrel (Plavix) 75 mg tablet Active 75 mg PO daily January 11, 2024 12:00am dimethyl fumarate 240 mg delayed release oral capsule (20 sources) Start: 04-25-19 End: 08-20-19 take 1 capsule by mouth twice daily dimethyl fumarate (TECFIDERA) [address] Take 1 capsule by mouth two times a day. 180 capsule 3 08/19/2024 Active Comment on above: TAKE 1 CAPSULE BY MO [facility] 2 TIMES A DAY ferrous gluconate 324 mg oral tablet (3 sources) Start: 11-24-19 ferrous gluconate 324 mg (38 mg elemental iron) oral tablet Dose : 324 mg = 1 tab(s), Oral, BID, # 100 tab(s), 0 Refill(s) Start Date: 11/24/23 Status: Ordered ferrous sulfate 325 mg oral tablet (11 sources) Start: 02-05-20 End: 08-04-19 take 1 tablet by mouth once daily ferrous sulfate 325 mg (65 mg iron) tablet Take 1 tablet by mouth once daily. 30 tablet 5 02/05/2024 08/03/2024 Active iv contrast (will be provided with radiology test) (5 sources) Start: 08-20-19 End: 08-21-19 inject 1 dose intravenously once iv contrast (will be provided with radiology test) MRI Brain Inject, intravenously, once for 1 dose.No IV access, insert saline lock prior to beginning of sedation, infusion, injection of imaging exam.Discontinue saline lock post exam. If Pt. has a central line or IVAD, may access for administration according to line specific nursing protocol.Once exam is complete flush line and de-access according to line specific nursing protocol in the MR contrast administration guidelines link 1 each 08/19/2024 08/20/2024 Active Start: 07-09-2022 End: 07-10-2022 inject 1 dose intravenously once iv contrast (will be provided with radiology test) MRI Brain Inject, intravenously, once for 1 dose.No IV access, insert saline lock prior to beginning of sedation, infusion, injection of imaging exam.Discontinue saline lock post exam. If Pt. has a central line or IVAD, may access for administration according to line specific nursing protocol.Once exam is complete flush line and de-access according to line specific nursing protocol in the MR contrast administration guidelines link 1 Each 0 07/09/2022 07/10/2022 Active Comment on above: MRI Brain Inject, in travenously, once for 1 dose.No IV access, insert saline lock prior to beginning of sedation, infusion, injection of imaging exam.Discontinue saline lock post exam. If Pt. has a central line or IVAD, may access for administration according to line specific nursing protocol.Once exam is complete flush line and de-access according to line specific nursing protocol in the MR contrast administration guidelines link polyethylene glycol 3350 63576 mg powder for oral solution (2 sources) Osmotic Laxative Start: 12-01-19 Miralax Powder Packet Oral, qDay, PRN Constipation, 0 Refill(s) Start Date: 12/01/23 Status: Ordered polyethylene glycol 3350 301957 mg / potassium chloride 2970 mg / sodium bicarbonate 6740 mg / sodium chloride 5860 mg / sodium sulfate 58424 mg powder for oral solution (2 sources) Osmotic Laxative Start: 11-11-19 peg 3350-Electrolytes (GOLYTELY) 236-22.74-6.74 -5.86 gram suspension Refer to printed prep instructions from your provider. 4000 mL 11/10/2024 Active predniSONE 10 mg oral tablet (2 sources) Start: 11-03-19 End: 11-12-19 predniSONE (DELTASONE) 10 mg tablet Take 4 tabs daily for 3 days, then 2 tabs daily for 3 days, then 1 tab daily for 3 days with food. 21 tablet 0 11/02/2021 11/11/2021 Active Comment on above: Take 4 tabs daily fo r 3 days, then 2 tabs daily for 3 days, then 1 tab daily for 3 days with food. tiZANidine 2 mg oral tablet (20 sources) Central alpha-2 Adrenergic Agonist Start: 10-29-19 End: 10-15-19 take 1 tablet by mouth once daily at bedtime tiZANidine (ZANAFLEX) 2 mg tablet TAKE 1 TABLET BY MOUTH EVERYDAY AT BEDTIME 90 tablet 10/14/2024 Active Start: 07-08-2023 End: 07-31-2023 take 1 tablet by mouth once daily at bedtime tiZANidine (ZANAFLEX) 2 mg tablet TAKE 1 TABLET BY MOUTH EVERYDAY AT BEDTIME 90 tablet 0 07/31/2023 Active Comment on above: Take 1 tablet by maria m th daily at bedtime. TAKE 1 TABLET BY MARIA M TH EVERYDAY AT BEDTIME traMADol hydrochloride 50 mg oral tablet (2 sources) Opioid Agonist Start: End: traMADol 50 mg oral tablet Dose : 50 mg = 1 tab(s), Oral, q6h, PRN for pain, # 12 tab(s), 0 Refill(s), 86.5 Start Date: 12/09/23 Status: Ordered zonisamide 100 mg oral capsule (20 sources) Anti-epileptic Agent Start: 4 End: take 1 capsule by mouth once daily Zonisamide 100 mg capsule Active 200 mg PO daily April 01, 2024 2:20pm Start: 03-29-2021 End: 07-03-2025 zonisamide (ZONEGRAN) 100 mg capsule Indications: Seizure (HCC) Take 200 mg am and 300 mg pm 450 capsule 2 07/04/2023 07/03/2025 Active Start: 01-19-2020 End: 02-01-2021 zonisamide (ZONEGRAN) 100 mg capsule Take 200 mg am and 300 mg pm 450 capsule 3 01/19/2020 02/01/2021 Discontinued Comment on above: Take 200 mg am and 3 00 mg pm Completed/Discontinued Medications Medication Drug Class(es) Dates Sig (Normalized) Sig (Original) bacitracin 0.5 unt/mg topical ointment (2 sources) Start: 02-15-2023 End: 02-15-2023 bacitracin ointment baclofen 10 mg oral tablet (20 sources) gamma-Aminobutyric Acid-ergic Agonist Start: 07-04-2021 End: 07-08-2023 take 1 tablet by mouth once daily at bedtime baclofen (LIORESAL) 10 mg tablet TAKE 1 TABLET BY MOUTH EVERYDAY AT BEDTIME 90 tablet 1 11/07/2021 07/08/2023 Discontinued Comment on above: Take 1 tablet by maria m th daily at bedtime. TAKE 1 TABLET BY MARIA M TH EVERYDAY AT BEDTIME cephalexin 500 mg oral capsule (20 sources) Cephalosporin Antibacterial Start: 10-13-2020 End: 08-19-2024 take 1 capsule by mouth twice daily cephALEXin (KEFLEX) 500 mg capsule Indications: Abrasion of left elbow, initial encounter Take 1 capsule by mouth twice daily. 20 capsule 10/13/2020 08/19/2024 Discontinued Comment on above: Take 1 capsule by mo [facility] twice daily. ergocalciferol 1.25 mg oral capsule (20 sources) Provitamin D2 Compound Start: 01-22-2019 End: 08-19-2024 take 1 capsule by mouth every week ergocalciferol 50,000 unit capsule (VITAMIN D2, DRISDOL) Take 1 capsule by mouth one time a week. 12 capsule 01/22/2019 08/19/2024 Discontinued Comment on above: Take 1 capsule by mo [facility] one time a week. folic acid 0.8 mg oral tablet (2 sources) Start: 12-01-2023 End: 12-15-2023 folic acid 0.8 mg oral tablet Dose : 0.8 mg = 1 tab(s), Oral, qDay, # 14 tab(s), 0 Refill(s), Pharmacy: [facility]/pharmacy #[id number], 183, cm, 11/24/23 17:48:00 EDT, Height, kg, 11/30/23 4:06:00 EDT, Dosing Weight Start Date: 12/01/23 Stop Date: 12/15/23 Status: Ordered 10 ml lidocaine hydrochloride 10 mg/ml injection (2 sources) Antiarrhythmic, Amide Local Anesthetic Start: 02-15-2023 End: 02-15-2023 lidocaine (Xylocaine) 1 % injection 10 mL metoprolol tartrate 25 mg oral tablet (18 sources) beta-Adrenergic Junior Start: 01-11-2024 End: 08-19-2024 take 1 tablet by mouth twice daily metoprolol tartrate, short acting, (LOPRESSOR) 25 mg tablet Take 25 mg by mouth two times a day. 01/26/2024 08/19/2024 Discontinued Start: 12-01-2023 metoprolol tar trate 25 mg oral tablet Dose : 25 mg = 1 tab(s), Oral, BIDM, 0 Refill(s) Start Date: 12/01/23 Status: Ordered Start: 12-01-2023 End: 12-01-2023 take 1 tablet by mouth in the morning metoprolol tartrate (Lopressor) Start: 12/01/23 8:00:00 AM EDT, Dose = 25 mg, = 1 tab(s), Oral, Hold if SBP (mmHg) Start Date: 12/01/23 Stop Date: 12/01/23 Status: Completed Start: 11-30-2023 End: 11-30-2023 take 1 tablet by mouth in the evening metoprolol tartrate (Lopressor) Start: 11/30/23 5:00:00 PM EDT, Dose = 25 mg, = 1 tab(s), Oral, Hold if SBP (mmHg) Start Date: 11/30/23 Stop Date: 11/30/23 Status: Completed Start: 11-30-2023 End: 11-30-2023 take 1 tablet by mouth in the morning metoprolol tartrate (Lopressor) Start: 11/30/23 8:00:00 AM EDT, Dose = 25 mg, = 1 tab(s), Oral, Hold if SBP (mmHg) Start Date: 11/30/23 Stop Date: 11/30/23 Status: Completed multivitamins w-minerals/lut(CENTRUM SILVER TAB) (20 sources) Start: 04-14-2004 End: 08-19-2024 multivitamins w-minerals/lut(CENTRUM SILVER TAB) Indications: Multiple sclerosis (HCC) Take one daily 30 0 04/14/2004 08/19/2024 Discontinued Start: 04-14-2004 multivitamins w-minerals/lut(CENTRUM SILVER TAB) Indications: Multiple sclerosis (HCC) Take one daily 30 0 04/14/2004 Active Comment on above: Take one daily naproxen sodium 220 mg oral tablet (20 sources) Nonsteroidal Anti-inflammatory Drug Start: 004 End: naproxen sodium(ALEVE 220 MG TAB) Indications: Multiple sclerosis (HCC) as needed 30 0 06/16/2003 08/19/2024 Discontinued Comment on above: as needed sildenafil 20 mg oral tablet (20 sources) Phosphodiesterase 5 Inhibitor Start: 021 End: sildenafil (REVATIO) 20 mg tablet 1-2 TABS NEEDED 30-60 MINUTES PRIOR TO SEXUAL INTERCOURSE 90 tablet 10/23/2020 08/19/2024 Discontinued Comment on above: 1-2 TABS NEEDED 3 0-60 MINUTES PRIOR TO SEXUAL INTERCOURSE vitamin b12 1 mg oral tablet (13 sources) Vitamin B12 Start: 024 End: take 2 tablets by mouth once daily cyanocobalamin (VITAMIN B-12) 1,000 mcg tab Take 2 tablets by mouth once daily. 02/05/2024 08/19/2024 Discontinued Start: 12-09-2023 cyanocobalamin 2500 mcg oral tablet Dose : 2,500 mcg = 1 tab(s), Oral, qDay, # 60 tab(s), 0 Refill(s) Start Date: 12/09/23 Status: Ordered Problems Active Problems Problem Classification Problem Date Documented Da te Episodic/Chronic Acquired foot deformities (1 source) Right foot drop; Translations: [Foot drop, right foot] Episodic Acute posthemorrhagic anemia (2 sources) Acute posthemorrhagic anemia; Translations: [Acute posthemorrhagic anemia] Onset: 11-26-2023 Episodic Adjustment disorders (20 sources) Adjustment disorder with mixed anxiety and depressed mood; Translations: [Adjustment disorder with mixed anxiety and depressed mood] Onset: 02-26-2018 02-26-2018 Chronic Allergic reactions (2 sources) Inflammatory dermatosis; Translations: [Dermatitis, unspecified] Episodic Anxiety disorders (4 sources) Anxiety disorder; Translations: [Anxiety disorder, unspecified] Onset: 11-24-2023 Chronic Cardiac dysrhythmias (2 sources) Paroxysmal atrial fibrillation; Translations: [Unspecified atrial fibrillation] Onset: 11-28-2023 Chronic Coronary atherosclerosis and other heart disease (8 sources) Coronary atherosclerosis; Translations: [Atherosclerotic heart disease of [place] coronary artery without angina pectoris] Onset: 11-24-2023 Chronic Coronary atherosclerosis and other heart disease (2 sources) Presence of aortocoronary bypass graft; Translations: [Presence of aortocoronary bypass graft] Onset: 01-02-2024 Episodic Deficiency and other anemia (2 sources) Anemia due to blood loss; Translations: [Iron deficiency anemia secondary to blood loss (chronic)] 11-12-2024 Chronic Deficiency and other anemia (1 source) Iron deficiency anemia secondary to blood loss (chronic); Translations: [Anemia, blood loss] Onset: 11-10-2024 Chronic Deficiency and other anemia (4 sources) Iron deficiency anemia; Translations: [Iron deficiency anemia, unspecified] Onset: 11-24-2023 Episodic Deficiency and other anemia (1 source) Anemia; Translations: [Anemia, unspecified] 11-21-2023 Episodic Disorders of lipid metabolism (4 sources) Hyperlipidemia; Translations: [Hyperlipidemia, unspecified] Onset: 01-02-2024 04-01-2024 Chronic Epilepsy; convulsions (2 sources) Epilepsy; Translations: [Epilepsy, unspecified, not intractable, without status epilepticus] Onset: 11-24-2023 Chronic Gastrointestinal hemorrhage (2 sources) Acute gastric ulcer with hemorrhage; Translations: [Acute gastric ulcer with hemorrhage] Onset: 11-10-2024 11-10-2024 Episodic Immunizations and screening for infectious disease (1 source) Encounter for immunization; Translations: [Encounter for immunization] Onset: 11-10-2024 Episodic Mood disorders (1 source) Depressive disorder; Translations: [Depression, unspecified] Chronic Multiple sclerosis (20 sources) Relapsing remitting multiple sclerosis; Translations: [Multiple sclerosis] Onset: 06-16-2003 Chronic Nutritional deficiencies (4 sources) Vitamin D deficiency; Translations: [Vitamin D deficiency, unspecified] Onset: 08-19-2024 02-05-2024 Chronic Open wounds of head; neck; and trunk (8 sources) Laceration of left eyebrow; Translations: [Laceration without foreign body of left eyelid and periocular area, initial encounter] Onset: 02-15-2023 02-15-2023 Episodic Other aftercare (1 source) Surgical follow-up 12-09-2023 Episodic Other circulatory disease (1 source) Elevated blood-pressure reading without diagnosis of hypertension; Translations: [Elevated blood-pressure reading, without diagnosis of hypertension] 11-21-2023 Episodic Other injuries and conditions due to external causes (6 sources) Closed injury of head; Translations: [Unspecified injury of head, initial encounter] Onset: 02-15-2023 02-15-2023 Episodic Other injuries and conditions due to external causes (2 sources) Unspecified injury of head, initial encounter; Translations: [Unspecified injury of head, initial encounter] Onset: 02-15-2023 Episodic Other injuries and conditions due to external causes (1 source) Injury of left elbow region; Translations: [Unspecified injury of left elbow, initial encounter] 10-13-2020 Episodic Other nervous system disorders (3 sources) Other abnormalities of gait and mobility; Translations: [Imbalance] Onset: 08-15-2021 Episodic Other screening for suspected conditions (not mental disorders or infectious disease) (20 sources) Patient encounter status; Translations: [Encounter for screening for malignant neoplasm of colon] Onset: 07-23-2011 07-23-2011 Episodic Residual codes; unclassified (1 source) Pain; Translations: [Pain, unspecified] Onset: 12-01-2023 Episodic Past or Other Problems Problem Classification Problem Date Documented Date Episodic/Chronic Complications of surgical procedures or medical care (2 sources) Atrial fibrillation; Translations: [Other postprocedural complications and disorders of the circulatory system, not elsewhere classified] Onset: 01-02-2024 04-01-2024 Episodic Deficiency and other anemia (1 source) Anemia, unspecified; Translations: [Anemia, unspecified] Onset: 12-04-2023 Episodic Epilepsy; convulsions (20 sources) Seizure; Translations: [Unspecified convulsions] Onset: 05-21-2011 05-21-2011 Episodic Genitourinary symptoms and ill-defined conditions (20 sources) Blood in urine; Translations: [Hematuria, unspecified] Onset: 02-08-2008 02-08-2008 Episodic Nonspecific chest pain (4 sources) Tight chest; Translations: [Other chest pain] Onset: 12-04-2023 11-21-2023 Episodic Other connective tissue disease (20 sources) Paraparesis; Translations: [Other symptoms and signs involving the musculoskeletal system] Onset: 08-15-2021 Episodic Other connective tissue disease (20 sources) Other symptoms and signs involving the musculoskeletal system; Translations: [Other musculoskeletal symptoms referable to limbs] Onset: 08-15-2021 08-15-2021 Episodic Other nervous system disorders (20 sources) Impairment of balance; Translations: [Other abnormalities of gait and mobility] Onset: 09-26-2013 09-26-2013 Episodic Other nervous system disorders (20 sources) Abnormal gait; Translations: [Unspecified abnormalities of gait and mobility] Onset: 09-26-2013 09-26-2013 Episodic Other nervous system disorders (1 source) Unspecified abnormalities of gait and mobility; Translations: [Abnormality of gait] Onset: 08-15-2021 Episodic Residual codes; unclassified (1 source) History of cardiac catheterization; Translations: [Other specified postprocedural states] Onset: 11-13-2023 01-02-2024 Episodic Unclassified (2 sources) Patient encounter status 11-12-2024 Results Test Name Value Interpretation Reference Range Facility [facility] 01-04-2025 [facility] [place] Telephone (BLAIR) JUANITA JAY ([id number]) 1955 M Date Time Provider Department 01/04/25 LAVERNE MONROE During your visit today, we recorded the following information about you: Jennifer Martinez 01/04/2025 2:22 PM Signed Prescription Refill Information The patient has been identified by name and date of : Yes Caregiver verified no other encounters exist for this prescription request: Yes Caregiver confirmed with patient/requestor that no other refills are due, in the near future, with this provider at this time: Yes The last office visit in the department: 11-10-24 Does the patient have a future office visit with this provider/department: Yes Zovirax cream (acyclovir) Patient states that he has used this and recently ran out of this and would like a new prescription sent to [facility]. Jennifer Gibbs January 04, 2025 2:20 PM Isaías Doe APRN.SHIRA 01/04/2025 2:42 PM Signed Looks like the cream isn't covered by insurance, but the ointment will be, is that ok? Isaías Doe APRN.Sara Newman LPN 01/04/2025 3:17 PM Signed LM for patient to call office nurse to let us know if he wants the ointment sent. Latisha Clarke 01/05/2025 10:14 AM Signed Patient returned call and would like the prescription sent to [facility]. Patient will be going out of town this afternoon and would like to have the prescription before he leaves. Isaías Doe APRN.CNP 01/05/2025 10:35 AM Signed Rx sent to [facility] Isaías Doe APRN.SHIRA Requested Prescriptions Signed Prescriptions Disp Refills acyclovir (ZOVIRAX) 5 % ointment 30 g 1 Sig: Apply to affected area five times a day. Authorizing Provider: ISAÍAS DOE Pharmacy Information Pharmacy Address Telephone [facility]/pharmacy #[id number] [place] [address] Elisha Anand LPN 01/05/2025 10:52 AM Signed Called pt left . Sent mychart message as well. Allergies As of Date: 01/04/2025 Noted Allergy Reaction CARBAMAZEPINE 10/22/2011 2 - Rash 14 - Other: See Comments Comments: Acute urinary retention Date Reviewed: 11/10/2024 Reviewed by: Elisha Anand LPN - Fully Assessed Reason for Visit: Medication Request [138] Order(s):acyclovir (ZOVIRAX) 5 % ointmentApply to affected area five times a day.Disp: 30 gRfl: 1 Prescriptions as of 01/05/2025 - acyclovir (ZOVIRAX) 5 % ointment Apply to affected area five times a day. - citalopram (CELEXA) 20 mg tablet Take 1 tablet by mouth once daily. - peg 3350-Electrolytes (GOLYTELY) 236-22.74-6.74 -5.86 gram suspension Refer to printed prep instructions from your provider. - tiZANidine (ZANAFLEX) 2 mg tablet TAKE 1 TABLET BY MOUTH EVERYDAY AT BEDTIME - dimethyl fumarate (TECFIDERA) [address] Take 1 capsule by mouth two times a day. - atorvastatin (LIPITOR) 80 mg tablet Take 80 mg by mouth once daily. Take 1 tablet by mouth at night - clopidogrel (PLAVIX) 75 mg tablet Take 75 mg by mouth once daily. - zonisamide (ZONEGRAN) 100 mg capsule Take 200 mg am and 300 mg pm Problem List As Of Date 01/04/2025 Noted Resolved Multiple sclerosis (HCC) [G35] 06/16/2003 HEMATURIA NOS [R31.9] 02/08/2008 MS (Multiple Sclerosis) [G35] 07/03/2009 Seizure [R56.9] 05/21/2011 Special screening for malignant neoplasms, colo*07/23/2011 Examination of participant or control in clinic*09/13/2011 Imbalance [R26.89] 09/26/2013 Abnormality of gait [R26.9] 09/26/2013 Adjustment disorder with mixed anxiety and depr*02/26/2018 Seizures (HCC) [R56.9] Leg weakness, bilateral [R29.898] 08/15/2021 Prescriptions ordered this encounter Disp Refills Start End ACYCLOVIR 5 % TOPICAL OINTMENT 30 g 1 01/05/2025 Route: TOP Sig: Apply to affected area five times a day. Encounter Status:Closed by ELISHA ANAND on 01/05/25 [facility] Farhad 12-01-2024 [place] Telephone (FPWADS) JUANITA JAY ([id number]) 1955 M Date Time Provider Department 12/01/24 LAVERNE MONROE During your visit today, we recorded the following information about you: Allergies As of Date: 12/01/2024 Noted Allergy Reaction CARBAMAZEPINE 10/22/2011 2 - Rash 14 - Other: See Comments Comments: Acute urinary retention Date Reviewed: 11/10/2024 Reviewed by: Elisha Anand LPN - Fully Assessed Prescriptions as of 12/01/2024 - citalopram (CELEXA) 20 mg tablet Take 1 tablet by mouth once daily. - peg 3350-Electrolytes (GOLYTELY) 236-22.74-6.74 -5.86 gram suspension Refer to printed prep instructions from your provider. - tiZANidine (ZANAFLEX) 2 mg tablet TAKE 1 TABLET BY MOUTH EVERYDAY AT BEDTIME - dimethyl fumarate (TECFIDERA) [address] Take 1 capsule by mouth two times a day. - atorvastatin (LIPITOR) 80 mg tablet Take 80 mg by mouth once daily. Take 1 tablet by mouth at night - clopidogrel (PLAVIX) 75 mg tablet Take 75 mg by mouth once daily. - zonisamide (ZONEGRAN) 100 mg capsule Take 200 mg am and 300 mg pm Problem List As Of Date 12/01/2024 Noted Resolved Multiple sclerosis (HCC) [G35] 06/16/2003 HEMATURIA NOS [R31.9] 02/08/2008 MS (Multiple Sclerosis) [G35] 07/03/2009 Seizure [R56.9] 05/21/2011 Special screening for malignant neoplasms, colo*07/23/2011 Examination of participant or control in clinic*09/13/2011 Imbalance [R26.89] 09/26/2013 Abnormality of gait [R26.9] 09/26/2013 Adjustment disorder with mixed anxiety and depr*02/26/2018 Seizures (HCC) [R56.9] Leg weakness, bilateral [R29.898] 08/15/2021 Encounter Status:Closed by DENITA HO on 12/01/24 [facility] CNOVon 11-10-2024 CNOV Office Visit (FPWADS) JUANITA JAY ([id number]) 1955 M Date Time Provider Department 11/10/24 1:40 PM LAVERNE MONROE [facility]AD During your visit today, we recorded the following information about you: Pulse Blood pressure Weight Height 62/minute 111/68 78.5 kg 1.829 m Laverne Monroe MD 11/12/2024 11:59 AM Signed Juanita Jay is a 69 year old male here for a Medicare wellness visit. Juanita Jay is a 69-year-old male with a history of MS, CAD s/p CABG, and depression, presenting for an annual wellness visit. Annual Wellness Exam: - Last seen 5 years ago. - No recent colonoscopy; last performed over [address] Chu. - Denies any recent dermatological evaluations. - Has a living will. - Enjoys spending time outdoors, including trips to [place] in the winter. - Family history: Father lived to 93 years old. Multiple Sclerosis: - Managed by the [facility]. - Currently on Tecfidera; reports feeling well overall. - Experiencing balance issues, with a few minor falls. - Engages in physical therapy, swimming, and biking at [facility] to maintain leg strength. - Able to perform household tasks independently. 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 Coronary Artery Disease: - Experienced left arm pain while sitting in a recliner about a year ago, leading to hospitalization. - Underwent cardiac catheterization and subsequent CABG at [facility] by Dr. Hernandez. - Currently on Plavix. - No recent follow-up with pulling unit operator Dr. Petersen. Atrial Fibrillation: - Developed during hospitalization for CAD. - Temporarily managed with amiodarone; no longer on medication. Depression: - Managed with an antidepressant, currently taking 40 mg. - Reports feeling well and is open to reducing the dosage. Seizure Disorder: - Last seizure occurred before MS diagnosis. - Managed with Zonisamide. Medicare Health Risk Assessment General Health Fair Exercise: Minutes/Day 20 min Exercise: Days/Week 3 days Alcohol: Daily Use Monthly or less Alcohol: Drinks/Day 1 or 2 Alcohol: 6 or more drinks Never Feel off balance Yes Concerns: Teeth/Dentures No Concerns: Sexual function Decline Troubled by feelings Anxious; Irritable Frequency: Eating healthy diet Several days ADLs requiring help None of the above Safety precautions in home/vehicle Yes Smoke, vape, chews tobacco No Difficulty hearing No Difficulty seeing No Current Providers Specialists: I have reviewed specialist-related care of the patient in the medical record. Medical/Family history review Reviewed and updated problem list, medical/surgical/fam nica/social history, medications, and allergies. Current Outpatient Medications Medication Sig tiZANidine (ZANAFLEX) 2 mg tablet TAKE 1 TABLET BY MOUTH EVERYDAY AT BEDTIME dimethyl fumarate (TECFIDERA) [address] Take 1 capsule by mouth two times a day. atorvastatin (LIPITOR) 80 mg tablet Take 80 mg by mouth once daily. Take 1 tablet by mouth at night clopidogrel (PLAVIX) 75 mg tablet Take 75 mg by mouth once daily. zonisamide (ZONEGRAN) 100 mg capsule Take 200 mg am and 300 mg pm citalopram (CELEXA) 20 mg tablet Take 1 tablet by mouth once daily. peg 3350-Electrolytes (GOLYTELY) 236-22.74-6.74 -5.86 gram suspension Refer to printed prep instructions from your provider. No current facility-administere d medications for this visit. Opioid use review Opioid Medications (last 90 days) No data to display Neurological: (+) balance difficulty, (+) falls, (-) seizures Hematologic/Lymphati c: (+) easy bleeding/bruising Anxiety/Depression screening YOLANDA-7 Score: 5 (Mild Anxiety) Recommendation: no further intervention at this time Cognitive screening Mini Cog Score: 5 Cognitive screening reviewed and No further action needed (score 3-5). Functional Observation Was the patient's Timed Up AND Go test unsteady or >= 12 seconds? No Advance Care Planning Surrogate decision maker and/or advance care plan documented Measurements BP 111/68 Pulse 62 Ht 182.9 cm (6') Wt 78.5 kg (173 lb) SpO2 98% BMI 23.46 kg/m? General: Well-nourished, well-developed, no acute distress. Skin: Actinic damage noted. Regular rate and rhythm. S1 and S2 normal, no murmurs, clicks, gallops or rubs. No edema or JVD. Chest is clear; no wheezes or rales. Couple innocuous bruises noted, <1 cm Assessment/Plan 1. Medicare annual wellness visit, initial (Z00.00) - Completed Medicare annual wellness visit. - Discussed importance of annual visits; patient agrees to follow-up yearly. - Reviewed living will status; patient to provide copy for records. 2. Seizure (HCC) (R56.9) - No seizures since prior to MS diagnosis. - Continue Zonisamide as prescribed. 3. MS (multiple sclerosis) (HCC) (G35) 4. Balance problem (R26.89) - Ongoing care at (more content not included)... Normal [facility] 25(OH)D3 SerPl-ncon 2024 25-hydroxyvitamin D3 [Mass/Vol] 37.9 ng/mL Normal 31.0-80.0 [facility] Comment on above: Order Comment: Speci men Type: BLOOD SPECIMEN Ordering Facility: [facility] Address: [address] [place] [address] Performed By: #### 1 989-3 #### [facility] CLIA [id number] [address] [place] [address] [place] 25-hydroxyvitamin D3 [Mass/V ol]on 08-19-2024 Interpretation and review of laboratory results Normal [facility] CBC W Auto Differential pane l (Bld)on 08-19-2024 Basophils (Bld) [#/Vol] 0.09 10*3/uL [facility] Basophils/100 WBC (Bld) 1.1 % C [facility] Differential cell count method Nom (Bld) [facility] Eosinophils (Bld) [#/Vol] 0.14 10*3/uL [facility] Eosinophils/100 WBC (Bld) 1.8 % [facility] Erythrocyte distribution width (RBC) [Ratio] 19.9 % High 11.5 - 15.0 % [facility] Hematocrit (Bld) [Volume fraction] 35.7 % Low 39.0 - 51.0 % [facility] Hemoglobin (Bld) [Mass/Vol] 10.2 g/dL Low 13.0 - 17.0 g/dL [facility] Immature granulocytes (Bld) [#/Vol] [facility] Immature granulocytes/100 WBC (Bld) 0.3 % [facility] Interpretation and review of laboratory results Abnormal [facility] Lymphocytes (Bld) [#/Vol] 1.48 10*3/uL [facility] Lymphocytes/100 WBC (Bld) 18.7 % [facility] MCH (RBC) [Entitic mass] 22.3 pg Low 26.0 - 34.0 pg [facility] MCHC (RBC) [Mass/Vol] 28.6 g/dL Low 30.5 - 36.0 g/dL [facility] MCV (RBC) [Entitic vol] 78.1 fL Low 80.0 - 100.0 fL [facility] Monocytes (Bld) [#/Vol] 0.95 10*3/uL High [facility] Monocytes/100 WBC (Bld) 12 % C [facility] Neutrophils (Bld) [#/Vol] 5.22 10*3/uL [facility] Neutrophils/100 WBC (Bld) 66.1 % [facility] Nucleated RBC (Bld) [#/Vol] [facility] Nucleated RBC/100 WBC (Bld) [Ratio] 0 % /100 WBC [facility] Platelet mean volume (Bld) [Entitic vol] 9.7 fL 9.0 - 12.7 fL [facility] Platelets (Bld) [#/Vol] 474 10*3/uL [facility] RBC (Bld) [#/Vol] 4.57 10*6/uL 4.20 - 6.0 0 m/uL [facility] WBC (Bld) [#/Vol] 7.9 10*3/uL [facility] Basophils (Bld) [#/Vol] 0.09 10*3/uL Normal <0.11 [facility] Comment on above: Order Comment: Speci men Type: BLOOD SPECIMEN Ordering Facility: [facility] Address: [address] [place] [address] Performed By: #### 1 989-3 #### [facility] CLIA [id number] [address] [place] [address] [place] Basophils/100 WBC (Bld) 1.1 % Normal C [facility] Comment on above: Order Comment: Speci men Type: BLOOD SPECIMEN Ordering Facility: [facility] Address: [address] [place] [address] Performed By: #### 1 989-3 #### [facility] CLIA [id number] [address] [place] [address] [place] Differential cell count method Nom (Bld) Auto Normal [facility] Comment on above: Order Comment: Speci men Type: BLOOD SPECIMEN Ordering Facility: [facility] Address: [address] [place] [address] Performed By: #### 1 989-3 #### [facility] CLIA [id number] [address] [place] [address] [place] Eosinophils (Bld) [#/Vol] 0.14 10*3/uL Normal <0.46 [facility] Comment on above: Order Comment: Speci men Type: BLOOD SPECIMEN Ordering Facility: [facility] Address: [address] [place] [address] Performed By: #### 1 989-3 #### [facility] CLIA [id number] [address] [place] [address] [place] Eosinophils/100 WBC (Bld) 1.8 % Normal [facility] Comment on above: Order Comment: Speci men Type: BLOOD SPECIMEN Ordering Facility: [facility] Address: [address] [place] [address] Performed By: #### 1 989-3 #### [facility] CLIA [id number] [address] [place] [address] [place] Erythrocyte distribution width (RBC) [Ratio] 19.9 % High 11.5-15.0 [facility] Comment on above: Order Comment: Speci men Type: BLOOD SPECIMEN Ordering Facility: [facility] Address: [address] [place] [address] Performed By: #### 1 989-3 #### [facility] CLIA [id number] [address] [place] [address] [place] Hematocrit (Bld) [Volume fraction] 35.7 % Low 39.0-51.0 [facility] Comment on above: Order Comment: Speci men Type: BLOOD SPECIMEN Ordering Facility: [facility] Address: [address] [place] [address] Performed By: #### 1 989-3 #### [facility] CLIA [id number] [address] [place] [address] [place] Hemoglobin (Bld) [Mass/Vol] 10.2 g/dL Low 13.0-17.0 [facility] Comment on above: Order Comment: Speci men Type: BLOOD SPECIMEN Ordering Facility: [facility] Address: [address] [place] [address] Performed By: #### 1 989-3 #### [facility] CLIA [id number] [address] [place] [address] [place] Immature granulocytes (Bld) [#/Vol] 10*3/uL Normal <0.10 [facility] Comment on above: Order Comment: Speci men Type: BLOOD SPECIMEN Ordering Facility: [facility] Address: [address] [place] [address] Performed By: #### 1 989-3 #### [facility] CLIA [id number] [address] [place] [address] [place] Immature granulocytes/100 WBC (Bld) 0.3 % Normal [facility] Comment on above: Order Comment: Speci men Type: BLOOD SPECIMEN Ordering Facility: [facility] Address: [address] [place] [address] Performed By: #### 1 989-3 #### [facility] CLIA [id number] [address] [place] [address] [place] Lymphocytes (Bld) [#/Vol] 1.48 10*3/uL Normal 1.00-4.00 [facility] Comment on above: Order Comment: Speci men Type: BLOOD SPECIMEN Ordering Facility: [facility] Address: [address] [place] [address] Performed By: #### 1 989-3 #### [facility] CLIA [id number] [address] [place] [address] [place] Lymphocytes/100 WBC (Bld) 18.7 % Normal [facility] Comment on above: Order Comment: Speci men Type: BLOOD SPECIMEN Ordering Facility: [facility] Address: [address] [place] [address] Performed By: #### 1 989-3 #### [facility] CLIA [id number] [address] [place] [address] [place] MCH (RBC) [Entitic mass] 22.3 pg Low 26.0-34.0 [facility] Comment on above: Order Comment: Speci men Type: BLOOD SPECIMEN Ordering Facility: [facility] Address: [address] [place] [address] Performed By: #### 1 989-3 #### [facility] CLIA [id number] [address] [place] [address] [place] MCHC (RBC) [Mass/Vol] 28.6 g/dL Low 30.5-36.0 [facility] Comment on above: Order Comment: Speci men Type: BLOOD SPECIMEN Ordering Facility: [facility] Address: [address] [place] [address] Performed By: #### 1 989-3 #### [facility] CLIA [id number] [address] [place] [address] [place] MCV (RBC) [Entitic vol] 78.1 fL Low 80.0-100.0 C [facility] Comment on above: Order Comment: Speci men Type: BLOOD SPECIMEN Ordering Facility: [facility] Address: [address] [place] [address] Performed By: #### 1 989-3 #### [facility] CLIA [id number] [address] [place] [address] [place] Monocytes (Bld) [#/Vol] 0.95 10*3/uL High <0.87 [facility] Comment on above: Order Comment: Speci men Type: BLOOD SPECIMEN Ordering Facility: [facility] Address: [address] [place] [address] Performed By: #### 1 989-3 #### [facility] CLIA [id number] [address] [place] [address] [place] Monocytes/100 WBC (Bld) 12.0 % Normal C [facility] Comment on above: Order Comment: Speci men Type: BLOOD SPECIMEN Ordering Facility: [facility] Address: [address] [place] [address] Performed By: #### 1 989-3 #### [facility] CLIA [id number] [address] [place] [address] [place] Neutrophils (Bld) [#/Vol] 5.22 10*3/uL Normal 1.45-7.50 [facility] Comment on above: Order Comment: Speci men Type: BLOOD SPECIMEN Ordering Facility: [facility] Address: [address] [place] [address] Performed By: #### 1 989-3 #### [facility] CLIA [id number] [address] [place] [address] [place] Neutrophils/100 WBC (Bld) 66.1 % Normal [facility] Comment on above: Order Comment: Speci men Type: BLOOD SPECIMEN Ordering Facility: [facility] Address: [address] [place] [address] Performed By: #### 1 989-3 #### [facility] CLIA [id number] [address] [place] [address] [place] Nucleated RBC (Bld) [#/Vol] 10*3/uL Normal <0.01 [facility] Comment on above: Order Comment: Speci men Type: BLOOD SPECIMEN Ordering Facility: [facility] Address: [address] [place] [address] Performed By: #### 1 989-3 #### [facility] CLIA [id number] [address] [place] [address] [place] Nucleated RBC/100 WBC (Bld) [Ratio] 0.0 /100 WBC Normal [facility] Comment on above: Order Comment: Speci men Type: BLOOD SPECIMEN Ordering Facility: [facility] Address: [address] [place] [address] Performed By: #### 1 989-3 #### [facility] CLIA [id number] [address] [place] [address] [place] Platelet mean volume (Bld) [Entitic vol] 9.7 fL Normal 9.0-12.7 [facility] Comment on above: Order Comment: Speci men Type: BLOOD SPECIMEN Ordering Facility: [facility] Address: [address] [place] [address] Performed By: #### 1 989-3 #### [facility] CLIA [id number] [address] [place] [address] [place] Platelets (Bld) [#/Vol] 474 10*3/uL High 150-400 [facility] Comment on above: Order Comment: Speci men Type: BLOOD SPECIMEN Ordering Facility: [facility] Address: [address] [place] [address] Performed By: #### 1 989-3 #### [facility] CLIA [id number] [address] [place] [address] [place] RBC (Bld) [#/Vol] 4.57 10*6/uL Normal 4.20-6.00 [facility] Comment on above: Order Comment: Speci men Type: BLOOD SPECIMEN Ordering Facility: [facility] Address: [address] [place] [address] Performed By: #### 1 989-3 #### [facility] CLIA [id number] [address] [place] [address] [place] WBC (Bld) [#/Vol] 7.90 10*3/uL Normal 3.70-11.00 [facility] Comment on above: Order Comment: Speci men Type: BLOOD SPECIMEN Ordering Facility: [facility] Address: [address] [place] [address] Performed By: #### 1 989-3 #### [facility] CLIA [id number] [address] [place] [address] [place] CNOVon 08-19-2024 [facility] JUANITA JAY ([id number]) 1955 M Date Time Provider Department 08/19/24 12:30 PM [facility] During your visit today, we recorded the following information about you: Izzy Mendoza, Research Coordinator 08/19/2024 12:50 PM Signed Labs Drawn Allergies As of Date: 08/19/2024 Noted Allergy Reaction CARBAMAZEPINE 10/22/2011 2 - Rash 14 - Other: See Comments Comments: Acute urinary retention Date Reviewed: 08/19/2024 Reviewed by: Grant Melgar OCCA - Fully Assessed Reason for Visit: Lab Orders [1688] Visit Diagnoses:Multiple sclerosis (HCC) [G35] Vitamin D deficiency [E55.9] Order(s):COMPLETE BLOOD COUNT AND DIFFERENTIAL [SQCBCDIF] Order #: [id number]. #:[id number] VITAMIN D 25 HYDROXY [SQVITD] Order #: [id number]. #:[id number] Prescriptions as of 08/19/2024 - iv contrast (will be provided with radiology test) MRI Brain Inject, intravenously, once for 1 dose.No IV access, insert saline lock prior to beginning of sedation, infusion, injection of imaging exam.Discontinue saline lock post exam. If Pt. has a central line or IVAD, may access for administration according to line specific nursing protocol.Once exam is complete flush line and de-access according to line specific nursing protocol in the MR contrast administration guidelines link - dimethyl fumarate (TECFIDERA) [address] Take 1 capsule by mouth two times a day. - tiZANidine (ZANAFLEX) 2 mg tablet TAKE 1 TABLET BY MOUTH EVERYDAY AT BEDTIME - citalopram (CELEXA) 40 mg tablet TAKE 1 TABLET BY MOUTH EVERY DAY - atorvastatin (LIPITOR) 80 mg tablet Take 80 mg by mouth once daily. Take 1 tablet by mouth at night - clopidogrel (PLAVIX) 75 mg tablet Take 75 mg by mouth once daily. - zonisamide (ZONEGRAN) 100 mg capsule Take 200 mg am and 300 mg pm Problem List As Of Date 08/19/2024 Noted Resolved Multiple sclerosis (HCC) [G35] 06/16/2003 HEMATURIA NOS [R31.9] 02/08/2008 MS (Multiple Sclerosis) [G35] 07/03/2009 Seizure [R56.9] 05/21/2011 Special screening for malignant neoplasms, colo*07/23/2011 Examination of participant or control in clinic*09/13/2011 Imbalance [R26.89] 09/26/2013 Abnormality of gait [R26.9] 09/26/2013 Adjustment disorder with mixed anxiety and depr*02/26/2018 Seizures (HCC) [R56.9] Leg weakness, bilateral [R29.898] 08/15/2021 Encounter Status:Closed by IZZY MENDOZA on 08/19/24 Normal [facility] CNOV Office Visit (NEMSMN) JUANITA JAY ([id number]) 1955 Date Time Provider Department 08/19/24 11:15 AM TELLO SLAUGHTER During your visit today, we recorded the following information about you: Pulse Blood pressure Weight Height 90/minute 117/63 78.5 kg 1.829 m Tello Slaughter PA-C 08/19/2024 12:26 PM [facility] MULTIPLE SCLEROSIS FOLLOWUP/ESTABLISHED PATIENT VISIT Principal Neurologic Diagnosis: Multiple Sclerosis HISTORY OF ILLNESS HEADER: Date of onset: 10/29/2002 Date of diagnosis: 03/2003 Disease course from Onset: Exacerbating/Remitti ng Disease course last year: Exacerbating/Remitti ng Current MS Disease Therapy: Tecfidera (started 03/2007 for research trial, commercial drug started 11/2017) Previous MS Disease Therapies: Avonex (04/2003--10/2006; breakthrough on MRI) Last MRI: 08/05/23 CHIEF COMPLAINT: Follow-up on MS disease modifying therapy INTERVAL HISTORY: Usual treating team: Carter The patient is accompanied by son and . The patient was last seen 02/05/24, currently taking dimethyl fumarate . Since the patient's last visit the patient reports overall feeling stable. Granddaughter got Went to [place] in May, had a pain epigastric area - went to hospital and they did scope - had a bleeding ulcer - cauterized the bleed - hospitalized for 5 days - stopped the Aleve/Excedrin (source of the ulcer) Got new glasses after home from [place] Stubbed toe - tripped and fell and broke glasses - poked right eye with stem of glasses and caused black eye on right Saw cardiology 1 week ago at [facility] [place] - said all looked okay - metoprolol on hold x 6 months Denies seizure activity Denies new MS symptoms - balance gradually worse Started going back to the gym and riding bike again SUBJECTIVE AND REVIEW OF SYSTEMS: Neuro-QoL Functions (higher=better functioning) Flowsheet [facility] Office Visit from 08/19/2024 in [facility] Office Visit from 07/09/2022 in [facility] Office Visit from 01/08/2022 in [facility] Upper Extremity Domain T Score 43.47 48.65 46 Lower Extremity Domain T Score 36.12 34.28 37 Cognitive Function Domain T Score 49.89 47.66 49 Positive Affect Well Being T Score -- -- -- Ability To Participate In Social Roles T Score 44.12 41.16 42 Satisfaction With Social Roles T Score 39.83 62.19 45 Neuro-QoL Symptoms (higher=worse symptoms) [facility] Office Visit from 07/09/2022 in [facility] Office Visit from 01/08/2022 in [facility] Sleep Domain T Score 51.07 52.89 48 Fatigue Domain T Score 39.32 47.6 49 Anxiety Domain T Score 41.05 43.16 46 Depression Domain T Score 44.02 48.71 48 Stigma Domain T Score 55.76 58.45 45 Emotional Behavior Dyscontrol T Score -- -- -- *NeuroQoL is a multi-domain patient-reported quality of life questionnaire. PHQ-9 Flowsheet [facility] Office Visit from 07/04/2023 in Neurology Office Visit from 04/03/2022 in Neurology PHQ-9 Score 4 2 *PHQ-9 is a questionnaire for depressive symptoms, with scores 0-4 indicating none, 5-9 mild, 10-14 moderate, 15-19 moderately severe, and 20-27 severe symptoms. PROMIS-10 Flowsheet Row Office Visit from 07/04/2023 in Neurology Office Visit from 01/08/2022 in [facility] Global Physical Health T Score 34.9 42.3 Global Mental Health T Score 41.1 48.3 0-10 Standard Pain Scale 3 3 *PROMIS-10 is a patient-reported quality of life measure, typically reported as physical and mental domains. Here scores are expressed as percentiles, where the lowest possible score is one, the highest possible score is 99, and 50 is average. Refer to patient-entered data. Mood: PHQ9 responses reviewed and appear below Pain related to today's visit:reviewed on nursing intake documentation PAST HISTORY was reviewed and updated: PAST MEDICAL HISTORY Diagnosis Date Leptospirosis ~1991 MS (multiple sclerosis) (HCC) 2007 Seizures (HCC) PAST SURGICAL HISTORY Procedure Laterality Date PARTIAL SPLENECTOMY PAST SURGICAL HISTORY OF 1973 Splenectomy [facility] post trauma MEDICATIONS and ALLERGIES were reviewed and updated. SOCIAL HISTORY was reviewed and updated: Social History Tobacco Use Smoking status: Former Types: Cigarettes Smokeless tobacco: Never Tobacco comments: Quit smoking 2008. Living situation: Living at home with assistance Employment Status / Disability: Retired OBJECTIVE: VITALS AND WELLNESS: BP 117/63 (BP Site: Left Arm, BP Position: Sitting, BP Cuff Size: Large Adult) Pulse 90 Ht 182.9 cm (6') Wt 78.5 kg (173 lb) BMI 23.46 kg/m? MSPT Results Flowsheet Row Office Visit from 08/19/2024 in [facility] Office Visit from 07/09/2022 in [facility] Office Visit from 01/08/2022 in [facility] Processing Speed Total Number Correct 35 34 31 Processing Speed Z score 0.05 -0.16 -0.49 Dominant (more content not included)... Normal [facility] Laboratory - Chemistry and C hemistry - challengeon 08-19-2024 25-hydroxyvitamin D3 [Mass/Vol] 37.9 ng/mL 31.0 - 80.0 ng/mL [facility] Cardiology Visit Reporton Cardiology Visit Report [facility] [address] [place], [place] [address] OFFICE VISIT Date of Service: 08/03/24 MR#: [id number] Acct: [id number] Name: JUANITA JAY Rep #: [id number] : 1955 Provider: RODNEY bridges Age/Sex: 69/M Location: [facility] Status: Signed HPI HPI History of Present Illness Details: This is a 69-year-old male presents to the office for a cardiovascular follow-up. He was first seen in consultation in November 2023 for chest pain and abnormal stress test. He underwent heart cath station 12/01/2023 that showed severe LAD disease involving the first diagonal vessel and a calcified portion of the mid LAD with a dominant left system. Ejection fraction reported at 70%. Echocardiogram on 11/21/2023 showed ejection fraction of 70%. He proceeded with CABG x [address] [facility] [address] Henry with a WILLETT to LAD and reverse SVG to diagonal 1. Carotid ultrasound prior to surgery showed no significant carotid artery disease. He developed postoperative atrial fibrillation and was started on amiodarone per protocol. He received 1 unit of blood postop day 3. He converted to sinus rhythm prior to discharge. He states he was in [place] in May, and was admitted to a hospital due to a "bleeding ulcer" due to taking too much Aleve. He states that while he was in the hospital his metoprolol was discontinued due bradycardia. From a cardiac standpoint, the patient is doing well. He denies any palpitations, chest pain, pressure or heaviness. He denies SOB, Orthopnea, and PND. He does not have bleeding issues; no blood in urine, stool, or nosebleeds. He denies any decrease in energy level, myalgias, or claudication. He does not have edema, or sudden weight gain. He denies lightheadedness, dizziness, syncopal or near syncopal episodes, and headaches. Intake Vital Signs 04/01/24 11:58 04/06/24 10:22 08/03/24 07:44 Height 6 ft 6 ft 6 ft Weight: 173 lb BMI 23.4 BP 133/73 H Blood Pressure Location Lt brachial Position Sitting Respiration 18 Pulse 62 Pulse Source Monitor Pulse Oximetry (%) 100 Intake Visit Reasons: 5 [employer] Administrator Required: No Is patient in pain?: No Allergies No Known Allergies Allergy (Verified 08/03/24 11:23) Medications ???Medication ???Instructions ???Recorded ???Confirmed ???Type citalopram 40 mg tablet 40 mg PO DAILY depression 11/21/23 08/03/24 History dimethyl fumarate 240 mg 240 mg PO BID ms 11/21/23 08/03/24 History capsule,delayed release zonisamide 100 mg capsule 300 mg PO QHS seizures 11/21/23 History atorvastatin 80 mg tablet 80 mg PO QHS #90 tabs 01/11/24 Rx clopidogrel 75 mg tablet (Plavix) 75 mg PO QDAY #90 tabs 01/11/24 0 08/03/24 Rx zonisamide 100 mg capsule 200 mg PO QDAY seizures 04/01/24 0 08/03/24 History tizanidine 2 mg capsule 2 mg PO ONCE 08/03/24 08/03/24 His tory Ejection fraction %: 70 Have you fallen in the past year?: Yes PFSH Medical History Postoperative atrial fibrillation Leptospirosis 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 Seizures Multiple sclerosis Surgical History History of tonsillectomy History of total splenectomy History of left heart catheterization ( 11/24/23) History of coronary artery bypass surgery ( 11/26/23) Family History Mother Multiple myeloma Father CVA (cerebral vascular accident) Brother CAD (coronary artery disease) History of coronary artery bypass surgery Social History household members: spouse Smoking Status: Former smoker how long ago did patient quit smokin years ago alcohol intake: current alcohol intake frequency: holidays/special occasions only substance use type: does not use caffeine: Yes Type: carbonated beverages Number of servings: 1 and coffee Number of servings: 1 ROS Const Const: Negative for fatigue, weakness, headache(s) or frequent falls Eyes Eyes: Negative for blurry vision ENT ENT: Negative for headache(s), dizziness or Nosebleed/epistaxis Cardio Chest Pain: No Palpitations: No Edema: None Muscle aches with walking: None Resp Respiratory: Negative for SOB with activity, SOB at rest or SOB orthopnea SOB lying down GI GI: Negative nausea, vomiting, heartburn, bright, red blood in stools or black,tarry stools : Negative for hematuria Neuro Neuro: Negative for dizziness, lightheadedness, near syncope, syncope, frequent falls, headache(s), weakness or blurry vision Endo Endo: Negative for fatigue Cardiology Exam Const Appearance: cooperativ (more content not included)... Normal [facility] 07-29-2024 [facility] Telephone (FPWADS) JUANITA JAY ([id number]) 1955 M Date Time Provider Department 07/29/24 LAVERNE MONROE During your visit today, we recorded the following information about you: Elisha Anand LPN 07/29/2024 8:40 AM Signed Received lab results from [facility]. Placed in provider's inbox for review. Route to [facility] scanning Entered into pt chart. Allergies As of Date: 07/29/2024 Noted Allergy Reaction CARBAMAZEPINE 10/22/2011 2 - Rash 14 - Other: See Comments Comments: Acute urinary retention Date Reviewed: 02/05/2024 Reviewed by: Zara Nicholas OCCA - Fully Assessed Reason for Visit: Received Outside Medical Records [1526] Cmt: [facility] lab Order(s):HEPATIC FUNCTION PANEL (AK,AV,EU,FV,HL,MARLENY,M M,SP) [[id number]] Order #: [id number] TOTAL CHOLESTEROL [SQCHOL] Order #: [id number] LIPID PANEL, STANDARD [[id number]] Order #: [id number] Prescriptions as of 07/29/2024 - tiZANidine (ZANAFLEX) 2 mg tablet TAKE 1 TABLET BY MOUTH EVERYDAY AT BEDTIME - citalopram (CELEXA) 40 mg tablet TAKE 1 TABLET BY MOUTH EVERY DAY - dimethyl fumarate (TECFIDERA) [address] Take 1 capsule (240 mg) by mouth two times a day. - atorvastatin (LIPITOR) 80 mg tablet Take 80 mg by mouth once daily. Take 1 tablet by mouth at night - clopidogrel (PLAVIX) 75 mg tablet Take 75 mg by mouth once daily. - ferrous sulfate 325 mg (65 mg iron) tablet Take 1 tablet by mouth once daily. - metoprolol tartrate, short acting, (LOPRESSOR) 25 mg tablet Take 25 mg by mouth two times a day. - cyanocobalamin (VITAMIN B-12) 1,000 mcg tab Take 2 tablets by mouth once daily. - zonisamide (ZONEGRAN) 100 mg capsule Take 200 mg am and 300 mg pm - ASPIRIN ORAL Take by mouth. For body aches - sildenafil (REVATIO) 20 mg tablet 1-2 TABS NEEDED 30-60 MINUTES PRIOR TO SEXUAL INTERCOURSE - cephALEXin (KEFLEX) 500 mg capsule Take 1 capsule by mouth twice daily. - ergocalciferol 50,000 unit capsule (VITAMIN D2, DRISDOL) Take 1 capsule by mouth one time a week. - aspirin, enteric coated (ADULT LOW DOSE ASPIRIN) 81 mg EC tablet Take 1 tablet by mouth once daily. - naproxen sodium(ALEVE 220 MG TAB) as needed - multivitamins w-minerals/lut(CENTR UM SILVER TAB) Take one daily Problem List As Of Date 07/29/2024 Noted Resolved Multiple sclerosis (HCC) [G35] 06/16/2003 HEMATURIA NOS [R31.9] 02/08/2008 MS (Multiple Sclerosis) [G35] 07/03/2009 Seizure [R56.9] 05/21/2011 Special screening for malignant neoplasms, colo*07/23/2011 Examination of participant or control in clinic*09/13/2011 Imbalance [R26.89] 09/26/2013 Abnormality of gait [R26.9] 09/26/2013 Adjustment disorder with mixed anxiety and depr*02/26/2018 Seizures (HCC) [R56.9] Leg weakness, bilateral [R29.898] 08/15/2021 Encounter Status:Closed by ELISHA ANAND on 07/29/24 Normal [facility] Bilirubin directon 5 Bilirubin.direct [Mass/Vol] 0.18 mg/dL Normal 0.00-0.30 [facility] Comment on above: Performed By: #### L 500.3400, L500.4100 #### [facility] [place], [address] Bilirubin, totalon 5 Bilirubin [Mass/Vol] 0.46 mg/dL Normal 0.00-1.30 [facility] Comment on above: Performed By: #### L 500.3400, L500.4100 #### [facility] [address] [place], [address] Calculated very low density lipoprotein (VLDL) cholesterol measurementOrdered By: Zeferino Lizarraga on 07-27-2024 VLDL Cholesterol 16 mg/dL 5-40 [facility] HEPATIC FUNCTION PANEL (AK,A V,EU,FV,HL,MARLENY,MM,SP)on 07-27-2024 GLOBULIN 3.3 [facility] LDL calc ser/plasOrdered By: Zeferino Lizarraga on 07-27-2024 LDL Cholesterol, Calculated 47 mg/dL [facility] Comment on above: Jznkajmpty=033-044 m g/dL & Higher Gcmn=202 mg/dL or greater LIPID PANEL, STANDARDon 07-13 HDL/Chol Ratio 2.18 [facility] VLDL Cholesterol 16 [facility] Lipid Profileon 07-27-2024 CHOL:HDL 2.18 Normal [facility] Comment on above: Performed By: #### L 500.3400, L500.4100 #### [facility] [address] [place], [address] Cholesterol in LDL [Mass/Vol] 47 mg/dL Normal [facility] Comment on above: Result Comment: Bord znggih=755-457 mg/dL Higher Cdxx=973 mg/dL or greater Performed By: #### L 500.3400, L500.4100 #### [facility] [address] [place], [address] Cholesterol in VLDL [Mass/Vol] 16 mg/dL Normal - [facility] Comment on above: Performed By: #### L 500.3400, L500.4100 #### [facility] [address] [place], [address] Liver Profileon 07-27-2024 Alk Phos 126 U/L Normal 40-129 [facility] Comment on above: Performed By: #### L 500.3400, L500.4100 #### [facility] [address] [place], [address] Globulin (S) [Mass/Vol] 3.3 g/dL Normal 2.2-4.2 [facility] Comment on above: Performed By: #### L 500.3400, L500.4100 #### [facility] [address] [place], [address] T PROT 7.9 g/dL Normal 5.9-8.4 [facility] Comment on above: Performed By: #### L 500.3400, L500.4100 #### [facility] [address] [place], [address] AST [Catalytic activity/Vol] 29 U/L Normal <=37 [facility] Comment on above: Performed By: #### L 500.3400, L500.4100 #### [facility] [address] [place], [address] No Panel Informationon 07-27 [facility] Screening total cholesterol/ high density lipoprotein (HDL) cholesterol ratioOrdered By: Zeferino Lizarraga on 07-27-2024 Cholesterol.total/Trini sterol in HDL [Mass ratio] 2.18 {ratio} [facility] Serum globulin measurementOr dered By: Zeferino Lizarraga on 07-27-2024 Globulin (S) [Mass/Vol] 3.3 g/dL 2.2-4.2 [facility] Serum or plasma alanine varma otransferase (ALT) measurementon 07-27-2024 ALT [Catalytic activity/Vol] 23 U/L Normal <=46 [facility] Comment on above: Performed By: #### L 500.3400, L500.4100 #### [facility] [address] [place], [address] Serum or plasma albumin naila urement (mass/volume)on 07-27-2024 Albumin [Mass/Vol] 4.6 g/dL Normal 3.4-4.8 [facility] Comment on above: Performed By: #### L 500.3400, L500.4100 #### [facility] [address] [place], [place], [id number] Serum or plasma alkaline brooks sphatase measurementOrdered By: Zeferino Lizarraga on 07-27-2024 ALP [Catalytic activity/Vol] 126 U/L 40-129 [facility] Serum or plasma cholesterol in HDL measurement (mass/volume)on 07-27-2024 Cholesterol in HDL [Mass/Vol] 53 mg/dL Normal [facility] Comment on above: National Cholesterol Education Program (NCEP) guidelines:<40 mg/dL: Low HDL-cholesterol (major risk factor for CHD)>= 60 mg/dL: High HDL-cholesterol (negative risk factor for CHD)HDL-cholesterol is affected by a number of factors, e.g. smoking, exercise, hormones, sex and age. Result Comment: Cornelia onal Cholesterol Education Program (NCEP) guidelines: <40 mg/dL: Low HDL-cholesterol (major risk factor for CHD) >= 60 mg/dL: High HDL-cholesterol (negative risk factor for CHD) HDL-cholesterol is affected by a number of factors, e.g. smoking, exercise, hormones, sex and age. Performed By: #### L 500.3400, L500.4100 #### [facility] [address] [place], [address] Serum or plasma cholesterol measurement (mass/volume)on 07-27-2024 Cholesterol [Mass/Vol] 115 mg/dL Normal <=200 [facility] Comment on above: Cholesterol level, D esirable <200 mg/dLBorderline high cholesterol 200-239 mg/dLHigh cholesterol >=240 mg/dLRecommendations of the NCEP Adult Treatment Panel for the following risk-cutoff thresholds for the [place] population. Result Comment: Chol esterol level, Desirable <200 mg/dL Borderline high cholesterol 200-239 mg/dL High cholesterol >=240 mg/dL Recommendations of the NCEP Adult Treatment Panel for the following risk-cutoff thresholds for the [place] population. Performed By: #### L 500.3400, L500.4100 #### [facility] [address] [place], [place], [id number] Total proteinon 07-27-2024 Protein [Mass/Vol] 7.9 g/dL 5.9-8.4 [facility] Triglycerides measurementon 07-27-2024 Triglyceride [Mass/Vol] 78 mg/dL [facility] Comment on above: The drugs N-Acetylcy steine and Metamizole may falsely depress this assay. Normal range: <150 mg/dLBorderline High: 150-199 mg/dLHigh: 200-499 mg/dLVery High: >500 mg/dL Result Comment: The drugs N-Acetylcysteine and Metamizole may falsely depress this assay. Normal range: <150 mg/dL Borderline High: 150-199 mg/dL High: 200-499 mg/dL Very High: >500 mg/dL Performed By: #### L 500.3400, L500.4100 #### [facility] [address] [place], [address] [facility] 05-03-2024 [facility] [place] Telephone (NETNAV) JUANITA JAY ([id number]) 1955 M Date Time Provider Department 05/03/24 WILMA JASSO During your visit today, we recorded the following information about you: Wilma Jasso MA 05/03/2024 9:01 AM Signed Opened in error Allergies As of Date: 05/03/2024 Noted Allergy Reaction CARBAMAZEPINE 10/22/2011 2 - Rash 14 - Other: See Comments Comments: Acute urinary retention Date Reviewed: 02/05/2024 Reviewed by: Zara Nicholas OCCA - Fully Assessed Prescriptions as of 05/03/2024 - dimethyl fumarate (TECFIDERA) [address] Take 1 capsule (240 mg) by mouth two times a day. - tiZANidine (ZANAFLEX) 2 mg tablet Take 1 tablet by mouth daily at bedtime. - citalopram (CELEXA) 40 mg tablet Take 1 tablet by mouth once daily. - atorvastatin (LIPITOR) 80 mg tablet Take 80 mg by mouth once daily. Take 1 tablet by mouth at night - clopidogrel (PLAVIX) 75 mg tablet Take 75 mg by mouth once daily. - ferrous sulfate 325 mg (65 mg iron) tablet Take 1 tablet by mouth once daily. - metoprolol tartrate, short acting, (LOPRESSOR) 25 mg tablet Take 25 mg by mouth two times a day. - cyanocobalamin (VITAMIN B-12) 1,000 mcg tab Take 2 tablets by mouth once daily. - zonisamide (ZONEGRAN) 100 mg capsule Take 200 mg am and 300 mg pm - ASPIRIN ORAL Take by mouth. For body aches - sildenafil (REVATIO) 20 mg tablet 1-2 TABS NEEDED 30-60 MINUTES PRIOR TO SEXUAL INTERCOURSE - cephALEXin (KEFLEX) 500 mg capsule Take 1 capsule by mouth twice daily. - ergocalciferol 50,000 unit capsule (VITAMIN D2, DRISDOL) Take 1 capsule by mouth one time a week. - aspirin, enteric coated (ADULT LOW DOSE ASPIRIN) 81 mg EC tablet Take 1 tablet by mouth once daily. - naproxen sodium(ALEVE 220 MG TAB) as needed - multivitamins w-minerals/lut(CENTR UM SILVER TAB) Take one daily Problem List As Of Date 05/03/2024 Noted Resolved Multiple sclerosis (HCC) [G35] 06/16/2003 HEMATURIA NOS [R31.9] 02/08/2008 MS (Multiple Sclerosis) [G35] 07/03/2009 Seizure [R56.9] 05/21/2011 Special screening for malignant neoplasms, colo*07/23/2011 Examination of participant or control in clinic*09/13/2011 Imbalance [R26.89] 09/26/2013 Abnormality of gait [R26.9] 09/26/2013 Adjustment disorder with mixed anxiety and depr*02/26/2018 Seizures (HCC) [R56.9] Leg weakness, bilateral [R29.898] 08/15/2021 Encounter Status:Closed by WILMA JASSO on 05/03/24 Normal [facility] 04-05-2024 [facility] MISTYJUANITA ([id number]) 1955 M Date Time Provider Department 04/05/24 LAVERNE MONROE During your visit today, we recorded the following information about you: Sara Madrigal LPN 04/05/2024 2:04 PM Signed Received 04/02/2024 from [facility]. Placed in provider's inbox for review. Route to [facility] for scanning. Allergies As of Date: 04/05/2024 Noted Allergy Reaction CARBAMAZEPINE 10/22/2011 2 - Rash 14 - Other: See Comments Comments: Acute urinary retention Date Reviewed: 02/05/2024 Reviewed by: Zara Nicholas OCCA - Fully Assessed Reason for Visit: Received Outside Medical Records [3331] Cmt: [facility] Visit summary 04/01/2024 hospital f/u Prescriptions as of 04/05/2024 - atorvastatin (LIPITOR) 80 mg tablet Take 80 mg by mouth once daily. Take 1 tablet by mouth at night - clopidogrel (PLAVIX) 75 mg tablet Take 75 mg by mouth once daily. - ferrous sulfate 325 mg (65 mg iron) tablet Take 1 tablet by mouth once daily. - metoprolol tartrate, short acting, (LOPRESSOR) 25 mg tablet Take 25 mg by mouth two times a day. - cyanocobalamin (VITAMIN B-12) 1,000 mcg tab Take 2 tablets by mouth once daily. - tiZANidine (ZANAFLEX) 2 mg tablet take 1 tablet by mouth everyday at bedtime - citalopram (CELEXA) 40 mg tablet take 1 tablet by mouth every day - zonisamide (ZONEGRAN) 100 mg capsule Take 200 mg am and 300 mg pm - dimethyl fumarate (TECFIDERA) [address] take 1 capsule by mouth 2 times a day - ASPIRIN ORAL Take by mouth. For body aches - sildenafil (REVATIO) 20 mg tablet 1-2 TABS NEEDED 30-60 MINUTES PRIOR TO SEXUAL INTERCOURSE - cephALEXin (KEFLEX) 500 mg capsule Take 1 capsule by mouth twice daily. - ergocalciferol 50,000 unit capsule (VITAMIN D2, DRISDOL) Take 1 capsule by mouth one time a week. - aspirin, enteric coated (ADULT LOW DOSE ASPIRIN) 81 mg EC tablet Take 1 tablet by mouth once daily. - naproxen sodium(ALEVE 220 MG TAB) as needed - multivitamins w-minerals/lut(CENTR UM SILVER TAB) Take one daily Problem List As Of Date 04/05/2024 Noted Resolved Multiple sclerosis (HCC) [G35] 06/16/2003 HEMATURIA NOS [R31.9] 02/08/2008 MS (Multiple Sclerosis) [G35] 07/03/2009 Seizure [R56.9] 05/21/2011 Special screening for malignant neoplasms, colo*07/23/2011 Examination of participant or control in clinic*09/13/2011 Imbalance [R26.89] 09/26/2013 Abnormality of gait [R26.9] 09/26/2013 Adjustment disorder with mixed anxiety and depr*02/26/2018 Seizures (HCC) [R56.9] Leg weakness, bilateral [R29.898] 08/15/2021 Encounter Status:Closed by SARA MADRIGAL on 04/05/24 [facility] Farhad 04-01-2024 [facility] [place] Telephone (BLAIR) JUANITA JAY ([id number]) 1955 M Date Time Provider Department 04/01/24 LAVERNE MONROE During your visit today, we recorded the following information about you: Elisha Anand LPN 04/01/2024 4:05 PM Signed Received lab results from [facility]. Placed in provider's inbox for review. Route to MA scanning Allergies As of Date: 04/01/2024 Noted Allergy Reaction CARBAMAZEPINE 10/22/2011 2 - Rash 14 - Other: See Comments Comments: Acute urinary retention Date Reviewed: 02/05/2024 Reviewed by: Zara Nicholas OCCA - Fully Assessed Reason for Visit: Outside Labs Results [437] Cmt: [facility] Order(s):HEPATIC FUNCTION PANEL (AK,AV,EU,FV,HL,MARLENY,M M,SP) [[id number]] Order #: [id number] LIPID PANEL BASIC (AK,AV,EU,FV,HL,MARLENY,M M,SP) [[id number]] Order #: [id number] Prescriptions as of 04/01/2024 - atorvastatin (LIPITOR) 80 mg tablet Take 80 mg by mouth once daily. Take 1 tablet by mouth at night - clopidogrel (PLAVIX) 75 mg tablet Take 75 mg by mouth once daily. - ferrous sulfate 325 mg (65 mg iron) tablet Take 1 tablet by mouth once daily. - metoprolol tartrate, short acting, (LOPRESSOR) 25 mg tablet Take 25 mg by mouth two times a day. - cyanocobalamin (VITAMIN B-12) 1,000 mcg tab Take 2 tablets by mouth once daily. - tiZANidine (ZANAFLEX) 2 mg tablet take 1 tablet by mouth everyday at bedtime - citalopram (CELEXA) 40 mg tablet take 1 tablet by mouth every day - zonisamide (ZONEGRAN) 100 mg capsule Take 200 mg am and 300 mg pm - dimethyl fumarate (TECFIDERA) [address] take 1 capsule by mouth 2 times a day - ASPIRIN ORAL Take by mouth. For body aches - sildenafil (REVATIO) 20 mg tablet 1-2 TABS NEEDED 30-60 MINUTES PRIOR TO SEXUAL INTERCOURSE - cephALEXin (KEFLEX) 500 mg capsule Take 1 capsule by mouth twice daily. - ergocalciferol 50,000 unit capsule (VITAMIN D2, DRISDOL) Take 1 capsule by mouth one time a week. - aspirin, enteric coated (ADULT LOW DOSE ASPIRIN) 81 mg EC tablet Take 1 tablet by mouth once daily. - naproxen sodium(ALEVE 220 MG TAB) as needed - multivitamins w-minerals/lut(CENTR UM SILVER TAB) Take one daily Problem List As Of Date 04/01/2024 Noted Resolved Multiple sclerosis (HCC) [G35] 06/16/2003 HEMATURIA NOS [R31.9] 02/08/2008 MS (Multiple Sclerosis) [G35] 07/03/2009 Seizure [R56.9] 05/21/2011 Special screening for malignant neoplasms, colo*07/23/2011 Examination of participant or control in clinic*09/13/2011 Imbalance [R26.89] 09/26/2013 Abnormality of gait [R26.9] 09/26/2013 Adjustment disorder with mixed anxiety and depr*02/26/2018 Seizures (HCC) [R56.9] Leg weakness, bilateral [R29.898] 08/15/2021 Encounter Status:Closed by ELISHA ANAND on 04/01/24 Normal [facility] Cardiology Visit Reporton Cardiology Visit Report [facility] [address] [place] [address] OFFICE VISIT Date of Service: 04/01/24 MR#: [id number] Acct: [id number] Name: JUANITA JAY Rep #: [id number] 15 : 1955 Provider: RODNEY robertson Age/Sex: 68/M Location: [facility] Status: Signed HPI HPI History of Present Illness Details: This is a 68-year-old male presents to the office for a posthospital follow-up. He was first seen in consultation in November 2023 for chest pain and abnormal stress test. He underwent heart cath station 12/01/2023 that showed severe LAD disease involving the first diagonal vessel and a calcified portion of the mid LAD with a dominant left system. Ejection fraction reported at 70%. Echocardiogram on 11/21/2023 showed ejection fraction of 70%. He proceeded with CABG x 2 at [facility] [address]. Henry with a WILLETT to LAD and reverse SVG to diagonal 1. Carotid ultrasound prior to surgery showed no significant carotid artery disease. He developed postoperative atrial fibrillation and was started on amiodarone per protocol. He received 1 unit of blood postop day 3. He converted to sinus rhythm prior to discharge. He acknowledges occasional/intermitt ent chest soreness at the top of his sternum. This is not activity related. This is most noted after taking a shower and tender to touch. He denies palpitations. He denies bilateral lower extremity edema. He denies claudication. He states shortness of breath with activity that is improving. He denies shortness of breath at rest, orthopnea, or PND. He denies chronic cough. He denies significant, sudden weight gain. He denies lightheadedness, dizziness, near-syncope, or syncope. He denies blood in urine, blood in stool, or epistaxis. He denies fever with chills. He denies myalgia. He denies fatigue. His exercise level has remained stable. Intake Vital Signs 01/02/24 13:22 03/08/24 08:51 04/01/24 11:58 Height 6 ft 6 ft 6 ft Weight: 181 lb BMI 24.5 BP 112/70 Blood Pressure Location Lt brachial Position Sitting Respiration 16 Pulse 52 L Pulse Source NIBP Intake Visit Reasons: 3 M [employer] Administrator Required: No Accompanied by: Is patient in pain?: No Allergies No Known Allergies Allergy (Verified 04/01/24 13:18) Medications ???Medication ???Instructions ???Recorded ???Confirmed ???Type citalopram 40 mg tablet 40 mg PO DAILY depression 11/21/23 04/01/24 History dimethyl fumarate 240 mg 240 mg PO BID ms 11/21/23 04/01/24 History capsule,delayed release zonisamide 100 mg capsule 300 mg PO QHS seizures 11/21/23 04/01/24 History aspirin 81 mg chewable tablet 81 mg PO BREAKFAST #0 tabs 11/24/23 04/01/24 Rx ferrous gluconate 324 mg (37.5 mg 324 mg PO BIDCM #0 tabs 11/24/23 04/01/24 Rx iron) tablet atorvastatin 80 mg tablet 80 mg PO QHS #90 tabs 01/11/24 04/01/24 Rx clopidogrel 75 mg tablet (Plavix) 75 mg PO QDAY #90 tabs 01/11/24 04/01/24 Rx metoprolol tartrate 25 mg tablet 25 mg PO BID #180 tabs 01/11/24 04/01/24 Rx zonisamide 100 mg capsule 200 mg PO QDAY seizures 04/01/24 04/01/24 History Ejection fraction %: 70 Have you fallen in the past year?: No [facility] Medical History Postoperative atrial fibrillation Leptospirosis 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 Seizures Multiple sclerosis Surgical History History of tonsillectomy History of total splenectomy History of left heart catheterization ( 11/24/23) History of coronary artery bypass surgery ( 11/26/23) Family History Mother Multiple myeloma Father CVA (cerebral vascular accident) Brother CAD (coronary artery disease) History of coronary artery bypass surgery Social History household members: spouse Smoking Status: Former smoker how long ago did patient quit smokin years ago alcohol intake: current alcohol intake frequency: holidays/special occasions only substance use type: does not use caffeine: Yes Type: carbonated beverages Number of servings: 1 and coffee Number of servings: 1 ROS Const Const: Positive for other (Occasionally soreness to left leg graft site); Negative for fatigue or weakness Eyes Eyes: Negative for change in vision ENT ENT: Negative for dizziness or balance problems Cardio Chest Pain: Yes (Occasionally soreness at top of sternum) Palpitations: No Edema: None Resp Respiratory: Negative for SOB with activity, SOB at rest or SOB orthopnea SOB lying down GI GI: Negative nausea or heartburn Musc Musc: Negative for balance problems Neuro Neuro: Negative for dizziness, lightheadedness, near syncope, syncope or weakn (more content not included)... Normal [facility] HEPATIC FUNCTION PANEL (AK,A V,EU,FV,HL,MARLENY,MM,SP)on 03-24-2024 Alk Phos 134 U/L 50 - 136 U/L [facility] Bilirubin [Mass/Vol] 0.5 mg/dL 0.0 - 1 .0 mg/dL [facility] GLOBULIN 3.6 [facility] Protein [Mass/Vol] 7.6 g/dL [facility] LIPID PANEL BASIC (AK,AV,EU, FV,HL,MARLENY,MM,SP)on 03-24-2024 Interpretation and review of laboratory results Abnormal [facility] VLDL Cholesterol 31 [facility] Lipid Profileon 03-24-2024 Cholesterol [Mass/Vol] 121 mg/dL Normal 200 Cl [facility] Comment on above: Result Comment: <200 mg/dL Desirable 200-240 mg/dL Borderline >240 mg/dL High Risk Performed By: #### L 500.3400, L500.4100 ####[facility] [address] [place], [address] Cholesterol in HDL [Mass/Vol] 50 mg/dL Normal [facility] Comment on above: Result Comment: The drugs N-Acetylcysteine and Metamizole may falsely depress this assay. Reference Range HDL <40 mg/dL Low HDL Cholesterol HDL >or= 60 mg/dL High HDL Cholesterol Performed By: #### L 500.3400, L500.4100 ####[facility] [address] [place], [address] Cholesterol in LDL [Mass/Vol] 40 mg/dL Normal 0-130 [facility] Comment on above: Performed By: #### L 500.3400, L500.4100 ####[facility] [address] [place], [address] Cholesterol in VLDL [Mass/Vol] 31 mg/dL Normal 5-40 [facility] Comment on above: Performed By: #### L 500.3400, L500.4100 ####[facility] [address] [place], [address] Triglyceride [Mass/Vol] 155 mg/dL Normal [facility] Comment on above: Result Comment: The drugs N-Acetylcysteine and Metamizole may falsely depress this assay. Serum Triglycerides Reference Interval Normal <150 mg/dL Borderline high 150 - 199 mg/dL High 200 - 499 mg/dL Very High > or = 500 mg/dL Performed By: #### L 500.3400, L500.4100 ####[facility] [address] [place], [address] Liver Profileon 03-24-2024 Albumin [Mass/Vol] 4.0 g/dL Normal 3.2-5.0 [facility] Comment on above: Performed By: #### L 500.3400, L500.4100 ####[facility] [address] [place], [address] ALK P 134 U/L High 45-117 [facility] Comment on above: Performed By: #### L 500.3400, L500.4100 ####[facility] [address] [place], [address] ALT [Catalytic activity/Vol] 32 U/L Normal 16-61 [facility] Comment on above: Performed By: #### L 500.3400, L500.4100 ####[facility] [address] [place], [address] AST [Catalytic activity/Vol] 23 U/L Normal 15-37 [facility] Comment on above: Performed By: #### L 500.3400, L500.4100 ####[facility] [address] [place], [address] Bilirubin [Mass/Vol] 0.50 mg/dL Normal 0.20-1.00 [facility] Comment on above: Result Comment: For patients on eltrombopag therapy, use of Dimension [place] TBIL is not recommended. Performed By: #### L 500.3400, L500.4100 ####[facility] [address] [place], [address] Bilirubin.direct [Mass/Vol] 0.14 mg/dL Normal 0.00-0.30 [facility] Comment on above: Performed By: #### L 500.3400, L500.4100 ####[facility] [address] [place], [address] Globulin (S) [Mass/Vol] 3.6 g/dL Normal 2.2-4.2 [facility] Comment on above: Performed By: #### L 500.3400, L500.4100 ####[facility] [address] [place], [address] T PROT 7.6 g/dL Normal 6.4-8.2 [facility] Comment on above: Performed By: #### L 500.3400, L500.4100 ####[facility] [address] [place], [address] No Panel Informationon 03-24 [facility] 25(OH)D3 SerPl-mCncon 2023 25-hydroxyvitamin D3 [Mass/Vol] 31.0 ng/mL Normal 31.0-80.0 [facility] Comment on above: Order Comment: Susi padilla Type: BLOOD SPECIMEN Ordering Facility: [facility] Address: [address] [place] [address] Result Comment: Clas sification of 25 [place] Vitamin D status: Deficiency/Insufficiency: < or = 30 ng/ml. Sufficiency/Optimal Levels: 31-80 ng/mL Toxicity: > 100 ng/mL. Test performed by chemiluminescent immunoassay. Performed By: #### 1 989-3 #### [facility] CLIA [id number] [address] [place] [address] [place] CBC W Auto Differential pane l (Bld)on 02-06-2024 Anisocytosis Ql (Bld) Present Normal [facility] Comment on above: Order Comment: Susi padilla Type: BLOOD SPECIMEN Ordering Facility: [facility] Address: [address] [place] [address] Performed By: #### 5 7021-8 #### [facility] CLIA [id number] [facility] [place] [address] [place] [facility] CLIA [id number] [address] [place] [address] [place] Basophils (Bld) [#/Vol] 0.00 10*3/uL Normal <0.11 [facility] Comment on above: Order Comment: Susi padilla Type: BLOOD SPECIMEN Ordering Facility: [facility] Address: [address] [place] [address] Performed By: #### 5 7021-8 #### [facility] CLIA [id number] [facility] [place] [address] [place] [facility] CLIA [id number] [address] [place] [address] [place] Basophils/100 WBC (Bld) 0.0 % Normal [facility] Comment on above: Order Comment: Speci men Type: BLOOD SPECIMEN Ordering Facility: [facility] Address: [address] [place] [id number] Performed By: #### 5 7021-8 #### [facility] CLIA [id number] [address] [place] [address] [place] [facility] CLIA [id number] [place] [address] [place] Differential cell count method Nom (Bld) Manual Normal [facility] Comment on above: Order Comment: Speci men Type: BLOOD SPECIMEN Ordering Facility: [facility] Address: [address] [place] [address] Performed By: #### 5 7021-8 #### [facility] CLIA [id number] [address] [place] [address] [place] [facility] CLIA [id number] [address] [place] [address] [place] Eosinophils (Bld) [#/Vol] 0.00 10*3/uL Normal <0.46 [facility] Comment on above: Order Comment: Speci men Type: BLOOD SPECIMEN Ordering Facility: [facility] Address: [address] [place] [address] Performed By: #### 5 7021-8 #### [facility] CLIA [id number] [address] [place] [address] [place] [facility] CLIA [id number] [address] [place] [address] [place] Eosinophils/100 WBC (Bld) 0.0 % Normal [facility] Comment on above: Order Comment: Speci men Type: BLOOD SPECIMEN Ordering Facility: [facility] Address: [address] [place] [address] Performed By: #### 5 7021-8 #### [facility] CLIA [id number] [facility] [place] [address] [place] [facility] CLIA [id number] [address] [place] [address] [place] Erythrocyte distribution width (RBC) [Ratio] 20.2 % High 11.5-15.0 [facility] Comment on above: Order Comment: Speci men Type: BLOOD SPECIMEN Ordering Facility: [facility] Address: [address] [place] [address] Performed By: #### 5 7021-8 #### [facility] CLIA [id number] [address] [place] [address] [place] [facility] CLIA [id number] [address] [place] [address] [place] Hematocrit (Bld) [Volume fraction] 46.6 % Normal 39.0-51.0 [facility] Comment on above: Order Comment: Speci men Type: BLOOD SPECIMEN Ordering Facility: [facility] Address: [address] [place] [address] Performed By: #### 5 7021-8 #### [facility] CLIA [id number] [address] [place] [address] [place] [facility] CLIA [id number] [address] [place] [address] [place] Hemoglobin (Bld) [Mass/Vol] 14.5 g/dL Normal 13.0-17.0 [facility] Comment on above: Order Comment: Speci men Type: BLOOD SPECIMEN Ordering Facility: [facility] Address: [address] [place] [address] Performed By: #### 5 7021-8 #### [facility] CLIA [id number] [address] [place] [address] [place] [facility] CLIA [id number] [address] [place] [address] [place] Lymphocytes (Bld) [#/Vol] 1.50 10*3/uL Normal 1.00-4.00 [facility] Comment on above: Order Comment: Speci men Type: BLOOD SPECIMEN Ordering Facility: [facility] Address: [address] [place] [address] Performed By: #### 5 7021-8 #### [facility] CLIA [id number] [address] [place] [id number] [place] [address] [place] Lymphocytes/100 WBC (Bld) 17.0 % Normal [facility] Comment on above: Order Comment: Speci men Type: BLOOD SPECIMEN Ordering Facility: [facility] Address: [address] [place] [address] Performed By: #### 5 7021-8 #### [facility] CLIA [id number] [address] [place] [address] [place] [facility] [id number] [address] [place] [address] [place] MCH (RBC) [Entitic mass] 28.0 pg Normal 26.0-34.0 [facility] Comment on above: Order Comment: Speci men Type: BLOOD SPECIMEN Ordering Facility: [facility] Address: [address] [place] [address] Performed By: #### 5 7021-8 #### [facility] CLIA [id number] [address] [place] [address] [place] [facility] CLIA [id number] [address] [place] [address] [place] MCHC (RBC) [Mass/Vol] 31.1 g/dL Normal 30.5-36.[address] [facility] Comment on above: Order Comment: Speci men Type: BLOOD SPECIMEN Ordering Facility: [facility] Address: [address] [place] [address] Performed By: #### 5 7021-8 #### [facility] CLIA [id number] [address] CLIA [id number] [address] [place] [address] [place] MCV (RBC) [Entitic vol] 90.0 fL Normal 80.0-100.0 [facility] Comment on above: Order Comment: Speci men Type: BLOOD SPECIMEN Ordering Facility: [facility] Address: [address] [place] [address] Performed By: #### 5 7021-8 #### [facility] CLIA [id number] [address] [place] [address] [place] [facility] CLIA [id number] [address] [place] [address] [place] Monocytes (Bld) [#/Vol] 0.88 10*3/uL High <0.87 [facility] Comment on above: Order Comment: Speci men Type: BLOOD SPECIMEN Ordering Facility: [facility] Address: [address] [place] [address] Performed By: #### 5 7021-8 #### [facility] CLIA [id number] [address] [place] [address] [place] [facility] CLIA [id number] [address] [place] [address] [place] Monocytes/100 WBC (Bld) 10.0 % Normal [facility] Comment on above: Order Comment: Speci men Type: BLOOD SPECIMEN Ordering Facility: [facility] Address: [address] [place] [address] Performed By: #### 5 7021-8 #### [facility] CLIA [id number] [address] [place] [address] [place] [facility] CLIA [id number] [address] [place] [address] [place] Neutrophils (Bld) [#/Vol] 6.42 10*3/uL Normal 1.45-7.50 [facility] Comment on above: Order Comment: Speci men Type: BLOOD SPECIMEN Ordering Facility: [facility] Address: [address] [place] [address] Performed By: #### 5 7021-8 #### [facility] CLIA [id number] [facility] [place] [address] [place] [facility] CLIA [id number] [address] [place] [address] [place] Neutrophils/100 WBC (Bld) 73.0 % Normal [facility] Comment on above: Order Comment: Speci men Type: BLOOD SPECIMEN Ordering Facility: [facility] Address: [address] [place] [address] Performed By: #### 5 7021-8 #### [facility] CLIA [id number] [address] [place] [address] [place] [facility] CLIA [id number] [address] [place] [address] [place] Nucleated RBC (Bld) [#/Vol] 10*3/uL Normal <0.01 [facility] Comment on above: Order Comment: Speci men Type: BLOOD SPECIMEN Ordering Facility: [facility] Address: [address] [place] [address] Performed By: #### 5 7021-8 #### [facility] CLIA [id number] [address] [place] [address] [place] [facility] CLIA [id number] [address] [place] [address] [place] Nucleated RBC/100 WBC (Bld) [Ratio] 0.0 /100 WBC Normal [facility] Comment on above: Order Comment: Speci men Type: BLOOD SPECIMEN Ordering Facility: [facility] Address: [address] [place] [address] Performed By: #### 5 7021-8 #### [facility] CLIA [id number] [address] CLIA [id number] [address] [place] [address] [place] Ovalocytes LM Ql (Bld) Few Normal [facility] Comment on above: Order Comment: Speci men Type: BLOOD SPECIMEN Ordering Facility: [facility] Address: [address] [place] [address] Performed By: #### 5 7021-8 #### [facility] CLIA [id number] [facility] [place] [address] [place] [facility] CLIA [id number] [address] [place] [address] [place] Platelet mean volume (Bld) [Entitic vol] 10.5 fL Normal 9.0-12.7 [facility] Comment on above: Order Comment: Speci men Type: BLOOD SPECIMEN Ordering Facility: [facility] Address: [address] [place] [address] Performed By: #### 5 7021-8 #### DEB[facility]E [facility] CLIA [id number] [address] [place] [address] [place] [facility] CLIA [id number] [address] [place] [address] [place] Platelets (Bld) [#/Vol] 319 10*3/uL Normal 150-400 [facility] Comment on above: Order Comment: Speci men Type: BLOOD SPECIMEN Ordering Facility: [facility] Address: [address] [place] [address] Result Comment: No c lot detected. Performed By: #### 5 7021-8 #### [facility] CLIA [id number] [address] [place] [address] [place] [facility] CLIA [id number] [address] [place] [address] [place] Platelets Estimate (Bld) [#/Vol] Adequate Normal [facility] Comment on above: Order Comment: Speci men Type: BLOOD SPECIMEN Ordering Facility: [facility] Address: [address] [place] [address] Performed By: #### 5 7021-8 #### JANENECHITRA [facility] CLIA [id number] [address] [place] [address] [place] [facility] CLIA [id number] [address] [place] [address] [place] RBC (Bld) [#/Vol] 5.18 10*6/uL Normal 4.20-6.00 [facility] Comment on above: Order Comment: Speci men Type: BLOOD SPECIMEN Ordering Facility: [facility] Address: [address] [place] [address] Performed By: #### 5 7021-8 #### JANENECHITRA [facility] CLIA [id number] [address] [place] [address] [place] [facility] CLIA [id number] [address] [place] [address] [place] RBC FRAGMENTS Few Abnormal None Seen [facility] Comment on above: Order Comment: Speci men Type: BLOOD SPECIMEN Ordering Facility: [facility] Address: [address] [place] [address] Performed By: #### 5 7021-8 #### JANENECHITRA [facility] CLIA [id number] [address] [place] [address] [place] [facility] CLIA [id number] [address] [place] [address] [place] RED CELL MORPH Reviewed: see results of individual morphologies Normal [facility] Comment on above: Order Comment: Speci men Type: BLOOD SPECIMEN Ordering Facility: [facility] Address: [address] [place] [address] Performed By: #### 5 7021-8 #### JANENECHITRA [facility] CLIA [id number] [address] [place] [address] [place] [facility] CLIA [id number] [address] [place] [address] [place] WBC (Bld) [#/Vol] 8.80 10*3/uL Normal 3.70-11.00 [facility] Comment on above: Order Comment: Speci men Type: BLOOD SPECIMEN Ordering Facility: [facility] Address: [address] [place] [address] Performed By: #### 5 7021-8 #### DEBBIE [facility] CLIA [id number] [address] [place] [address] [place] [facility] CLIA [id number] [address] [place] [address] [place] Hepatic function 2000 panelo n 02-06-2024 Albumin [Mass/Vol] 4.5 g/dL Normal 3.9-4.9 [facility] Comment on above: Order Comment: Speci men Type: BLOOD SPECIMENOrdering Facility: [facility] Address: [address] [place] [address] Performed By: #### 2 4325-3 ####[facility] [id number] [place] [address] [place] ALP [Catalytic activity/Vol] 115 U/L High 38-113 [facility] Comment on above: Order Comment: Speci men Type: BLOOD SPECIMENOrdering Facility: [facility] Address: [address] [place] [address] Performed By: #### 2 4325-3 ####[facility] [id number] [place] [address] [place] ALT [Catalytic activity/Vol] 10 U/L Normal 10-54 [facility] Comment on above: Order Comment: Speci men Type: BLOOD SPECIMENOrdering Facility: [facility] Address: [address] [place], [place] [address] Performed By: #### 2 4325-3 ####[facility] [id number] [place] [address] [place] AST [Catalytic activity/Vol] 15 U/L Normal 14-40 [facility] Comment on above: Order Comment: Speci men Type: BLOOD SPECIMENOrdering Facility: [facility] Address: [address] [place], [place] [address] Performed By: #### 2 4325-3 ####[facility] [id number] [place] [address] [place] Bilirubin [Mass/Vol] 0.4 mg/dL Normal 0.2-1.3 [facility] Comment on above: Order Comment: Speci men Type: BLOOD SPECIMENOrdering Facility: [facility] Address: [address] [place] [address] Performed By: #### 2 4325-3 ####[facility] [id number] [place] [address] [place] Bilirubin.conjugated [Mass/Vol] mg/dL Normal <0.2 [facility] Comment on above: Order Comment: Speci men Type: BLOOD SPECIMENOrdering Facility: [facility] Address: [address] [place], [place] [address] Performed By: #### 2 4325-3 ####[facility] [id number] [place] [address] [place] Protein [Mass/Vol] 7.6 g/dL Normal 6.3-8.0 [facility] Comment on above: Order Comment: Speci men Type: BLOOD SPECIMENOrdering Facility: [facility] Address: [address] [place], [place] [address] Performed By: #### 2 4325-3 ####[facility] RAMSEY [id number] [place] [id number] [facility] CNOVon 02-05-2024 CNOV Office Visit [facility] JUANITA JAY ([id number]) 1955 M Date Time Provider Department 02/05/24 11:15 AM TELLO SLAUGHTER During your visit today, we recorded the following information about you: Pulse Blood pressure Weight Height 54/minute 111/57 80.7 kg 1.829 m Tello Slaughter PA-C 02/05/2024 3:50 PM [facility] FOR MULTIPLE SCLEROSIS FOLLOWUP/ESTABLISHED PATIENT VISIT Principal Neurologic Diagnosis: Multiple Sclerosis HISTORY OF ILLNESS HEADER: Date of onset: 10/29/2002 Date of diagnosis: 03/2003 Disease course from Onset: Exacerbating/Remitti ng Disease course last year: Exacerbating/Remitti ng Current MS Disease Therapy: Tecfidera (started 03/2007 for research trial, commercial drug started 11/2017) Previous MS Disease Therapies: Avonex (04/2003--10/2006; breakthrough on MRI) Last MRI: 08/05/23 CHIEF COMPLAINT: Follow-up on MS disease modifying therapy INTERVAL HISTORY: Usual treating team: Carter The patient is accompanied by and son. The patient was last seen 07/09/22, currently taking dimethyl fumarate. Since the patient's last visit the patient reports overall feeling stable. In November he experienced chest pain - started with pain in arm, then went into chest. Went to ED. Did a cath and found blockages - had open heart for double bypass ([facility]) - was in rehab after and now outpatient cardiac rehab now with benefit - set to follow-up with cardiology in March - on anticoagulant now but not sure why? He doesn't remember blood clot Denies seizure activity Notes mood irritable/"grouchy" at times Declines need for further intervention SUBJECTIVE AND REVIEW OF SYSTEMS: Neuro-QoL Functions (higher=better functioning) Flowsheet [facility] Office Visit from 07/09/2022 in [facility] Office Visit from 01/08/2022 in [facility] Office Visit from 07/04/2021 in [facility] Upper Extremity Domain T Score 48.65 46 49 Lower Extremity Domain T Score 34.28 37 37 Cognitive Function Domain T Score 47.66 49 46 Positive Affect Well Being T Score -- -- -- Ability To Participate In Social Roles T Score 41.16 42 50 Satisfaction With Social Roles T Score 62.19 45 44 Neuro-QoL Symptoms (higher=worse symptoms) Flowsheet [facility] Office Visit from 07/09/2022 in [facility] Office Visit from 01/08/2022 in [facility] Office Visit from 07/04/2021 in [facility] Sleep Domain T Score 52.89 48 47 Fatigue Domain T Score 47.6 49 50 Anxiety Domain T Score 43.16 46 41 Depression Domain T Score 48.71 48 47 Stigma Domain T Score 58.45 45 37 Emotional Behavior Dyscontrol T Score -- -- -- *NeuroQoL is a multi-domain patient-reported quality of life questionnaire. PHQ-9 Flowsheet [facility] Office Visit from 07/04/2023 in Neurology Office Visit from 04/03/2022 in Neurology PHQ-9 Score 4 2 *PHQ-9 is a questionnaire for depressive symptoms, with scores 0-4 indicating none, 5-9 mild, 10-14 moderate, 15-19 moderately severe, and 20-27 severe symptoms. PROMIS-10 Flowsheet Row Office Visit from 07/04/2023 in Neurology Office Visit from 01/08/2022 in [facility] Global Physical Health T Score 34.9 42.3 Global Mental Health T Score 41.1 48.3 0-10 Standard Pain Scale 3 3 *PROMIS-10 is a patient-reported quality of life measure, typically reported as physical and mental domains. Here scores are expressed as percentiles, where the lowest possible score is one, the highest possible score is 99, and 50 is average. Refer to patient-entered data. Mood: PHQ9 responses reviewed and appear below Pain related to today's visit:reviewed on nursing intake documentation PAST HISTORY was reviewed and updated: PAST MEDICAL HISTORY Diagnosis Date Leptospirosis ~1991 MS (multiple sclerosis) (HCC) 2007 Seizures (HCC) PAST SURGICAL HISTORY Procedure Laterality Date PARTIAL SPLENECTOMY PAST SURGICAL HISTORY OF 1972 Splenectomy [facility] post trauma MEDICATIONS and ALLERGIES were reviewed and updated. SOCIAL HISTORY was reviewed and updated: Social History Tobacco Use Smoking status: Former Types: Cigarettes Smokeless tobacco: Never Tobacco comments: Quit smoking 2008. Living situation: Living at home with assistance Employment Status / Disability: Retired OBJECTIVE: VITALS AND WELLNESS: BP 111/57 Pulse (!) 54 Ht 182.9 cm (6') Wt 80.7 kg (178 lb) BMI 24.14 kg/m? MSPT Results Flowsheet Row Office Visit from 07/09/2022 in [facility] Office Visit from 01/08/2022 in [facility] Office Visit from 07/04/2021 in [facility] Processing Speed Total Number Correct 34 31 33 Processing Speed Z score -0.16 -0.49 -0.31 Dominant hand -- -- -- MDT Left Hand Time 31.96 33.52 42.09 MDT Right Hand Time 32.59 30.53 31.37 Walking Speed Test (25 feet) 9.74 8.56 9.74 EXAM: General Appearance: well appearing, in no acute distress Mental status evaluation during (more content not included)... Normal [facility] JUANITA JAY ([id number]) 1955 M Date Time Provider Department 01/14/24 LAVERNE MONROE During your visit today, we recorded the following information about you: Elisha Anand LPN 01/14/2024 4:03 PM Signed Received pt records from [facility]. Placed in provider's inbox for review. Route to MA scanning Allergies As of Date: 01/14/2024 Noted Allergy Reaction CARBAMAZEPINE 10/22/2011 2 - Rash 14 - Other: See Comments Comments: Acute urinary retention Date Reviewed: 07/04/2023 Reviewed by: Cherrie Springer MA - Fully Assessed Reason for Visit: Received Outside Medical Records [[id number]] Cmt: [facility] Prescriptions as of 01/14/2024 - tiZANidine (ZANAFLEX) 2 mg tablet take 1 tablet by mouth everyday at bedtime - citalopram (CELEXA) 40 mg tablet take 1 tablet by mouth every day - zonisamide (ZONEGRAN) 100 mg capsule Take 200 mg am and 300 mg pm - dimethyl fumarate (TECFIDERA) [address] take 1 capsule by mouth 2 times a day - ASPIRIN ORAL Take by mouth. For body aches - sildenafil (REVATIO) 20 mg tablet 1-2 TABS NEEDED 30-60 MINUTES PRIOR TO SEXUAL INTERCOURSE - cephALEXin (KEFLEX) 500 mg capsule Take 1 capsule by mouth twice daily. - ergocalciferol 50,000 unit capsule (VITAMIN D2, DRISDOL) Take 1 capsule by mouth one time a week. - aspirin, enteric coated (ADULT LOW DOSE ASPIRIN) 81 mg EC tablet Take 1 tablet by mouth once daily. - naproxen sodium(ALEVE 220 MG TAB) as needed - multivitamins w-minerals/lut(CENTR UM SILVER TAB) Take one daily Problem List As Of Date 01/14/2024 Noted Resolved Multiple sclerosis (HCC) [G35] 06/16/2003 HEMATURIA NOS [R31.9] 02/08/2008 MS (Multiple Sclerosis) [G35] 07/03/2009 Seizure [R56.9] 05/21/2011 Special screening for malignant neoplasms, colo*07/23/2011 Examination of participant or control in clinic*09/13/2011 Imbalance [R26.89] 09/26/2013 Abnormality of gait [R26.9] 09/26/2013 Adjustment disorder with mixed anxiety and depr*02/26/2018 Seizures (HCC) [R56.9] Leg weakness, bilateral [R29.898] 08/15/2021 Encounter Status:Closed by ELISHA ANAND on 01/14/24 Normal [facility] CR - History AND Physicalon 01-09-2024 CR - History & Physical [facility] [address] [place] [address] CR - History Physical MR#: [id number] Acct: [id number] Name: JUANITA JAY Rep #: [id number] : 1955 68 From: Aston Soria BS, RVT PCP: Dr. Wisam Monroe MD DOS: 01/09/24 CR - History Physical General Arrival date:: 01/09/24 Arrival time:: 12:56 Date of Referral:: 01/02/24 Date of CR Evaluation:: 01/09/24 Referring Physician: Dr. Bernal Primary Diagnosis: CABG History of Present Cardiac Event Onset Date Coronary Artery Bypass Graft:: Yes (onset 11/26/23) Vessel: WILLETT to LAD and reverse SVG to diagonal 1 Medications Ambulatory Orders ???Medication ???Instructions ???Recorded citalopram 40 mg tablet 40 mg PO DAILY depression 11/21/23 dimethyl fumarate 240 mg 240 mg PO BID ms 11/21/23 capsule,delayed release zonisamide 100 mg capsule 200 mg PO .am seizures 11/21/23 zonisamide 100 mg capsule 300 mg PO QHS seizures 11/21/23 aspirin 81 mg chewable tablet 81 mg PO BREAKFAST #0 tabs 11/24/23 atorvastatin 80 mg tablet 80 mg PO QHS #0 tabs 11/24/23 ferrous gluconate 324 mg (37.5 mg 324 mg PO BIDCM #0 tabs 11/24/23 iron) tablet Allergies Allergies No Known Allergies Allergy (Verified 01/02/24 13:34) Sleep Disorder Evaluation Hx of Sleep Apnea: No Do you snore loudly (louder than talking or can be heard through closed doors)?: No Do you often feel tired/ fatigued/ sleepy during daytime?: No Has anyone observed you stop breathing during sleep?: No History of Hypertension (for STOP score): No STOP Results: Negative Advanced Directives Advanced Directives Power of Road Conductor: No Living Will: Yes Advance Directives Information Provided: Yes Advance Directives on File: No DNR Order?:: No Past Medical History Covid-19 Screening Physicial Symptoms Other Clinical Concerns Exposure Risk Pertinent Comorbidities 65 years or older:: Yes Has a serious heart condition:: Yes Past Medical Illness Past Medical History (Updated 01/02/24 @ 14:26 by Zeferino Lizarraga CAUSTICS LOADER, CAUSTICS LOADER-C) Postoperative atrial fibrillation I97.89, I48.91 Leptospirosis A27.9 Age 35 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 I25.10 Seizures R56.9 Multiple sclerosis G35 Past Surgical History Past Surgical History (Updated 01/02/24 @ 13:44 by Loreto Mancilla) History of tonsillectomy Z90.89 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 History of left heart catheterization ( 11/24/23) Z98.890 History of coronary artery bypass surgery ( 11/26/23) Z95.1 Family History Summary Family History (Updated 01/02/24 @ 13:45 by Loreto Mancilla) Mother Multiple myeloma Father CVA (cerebral vascular accident) Brother CAD (coronary artery disease) History of coronary artery bypass surgery Social History Smoking History Smoking Status: Former smoker Years Smokin (stopped 20 years ago) Hx Tobacco Use: Yes (smoked less than an pack a day) Alcohol Use Alcohol Usage: Yes (rare) Substance Abuse Hx Substance Use: No Occupation Occupation (List type of work in comments):: Retired Hobbies, Recreation, Social Activities Hobbies: Other (hunting, shooting targets) Recreational Activities: I am able to engage in all my recreational activities Social Environment Status Marital Status: Current Living Arrangements Living Environment:: Spouse Children How many children do you have?: 1 Do any of your children live nearby?: Yes Safety Do you feel safe in your surroundings?: Yes Assistance Do you need any assistance at home?: no Review of Systems Review of Systems Hints Review of Present Symptoms: Reports Shortness of Breath with Exertion, Appetite - Normal, Appetite - Special Diet and Sleep - Normal; Denies Shortness of Breath at Rest, PVD, Operative Discomfort, Angina, Wound Healing, Dizziness/Lightheade dness, Fatigue, Heart Arrhythmia/Irregular ities or Sexual Changes Pain Is Patient Pain Free?: No Risk Factor Assessment Chief Complaint Chief Complaint: CABG Vital Signs Pulse Ox: 95 Blood Pressure: 102/58 Pulse Pulse Rate: 95 Pulse Rhythm: Regular Hypertension Blood Pressure Sitting - Left Arm: 102/58 Obesity Height: 6 ft Weight:: 177 lb Weight in Pounds: 177.0 lbs Body Mass Index (BMI): 24.0 Nutritional Referral for Obesity: No Physical Inactivity Physical Inactivity: Reg Exercise 30 min/day Risk Stratification Risk Guidelines: Moderate Risk: Risk Factor for Smoking, Risk Factor for Diabetes, Risk Factor for Obesity and Risk Factor for Hypertension and Highest Risk: Risk Factor for Dyslipidemia, Risk Factor for Sedentary Lifestyle and Risk Factor for Depression For Smoking Smoking Risk Guidelines For Dyslipidemia Dyslipidemia Risk Guidelines For Diabetes Mellitus Diabetes Risk Guidelines For Obesity/Overweight Obesity/Overweight Risk Guide (more content not included)... [facility] XR CHEST 2 VIEWSon 4 XR CHEST 2 VIEWS ORIGINAL EXAMINATION: TWO XRAY VIEWS OF THE CHEST 01/06/2024 9:43 am COMPARISON: Chest x-ray on 12/01/2023 HISTORY: ORDERING SYSTEM PROVIDED HISTORY: Reason for Exam: SOB FINDINGS: Sternal wire sutures are intact. The heart size and mediastinal contours are normal. There is no acute lung infiltrate or edema. No pneumothorax or pleural fluid is present. There is no acute skeletal abnormality. IMPRESSION: No acute cardiopulmonary abnormality. Interpreted by: Balaji Mahmood MD Preliminary Report By: Balaji Mahmood MD Electronically signed By Balaji Mahmood MD Dictated Date: 01/07/2024 12:19:58 AM Prelim Date: 01/07/2024 12:21:05 AM Sign Date: 01/07/2024 12:21:05 AM Ordering Provider: [facility]IN Cardiology Visit Reporton Cardiology Visit Report [facility] [address] [place] [address] OFFICE VISIT Date of Service: 01/02/24 MR#: [id number] Acct: [id number] Name: JUANITA JAY Rep #: [id number] : 1955 Provider: RODNEY robertson Age/Sex: 68/M Location: [facility] Status: Signed [facility] History of Present Illness Details: This is a 68-year-old male presents to the office for a posthospital follow-up. He was first seen in consultation in November 2023 for chest pain and abnormal stress test. He underwent heart cath station 12/01/2023 that showed severe LAD disease involving the first diagonal vessel and a calcified portion of the mid LAD with a dominant left system. Ejection fraction reported at 70%. Echocardiogram on 11/21/2023 showed ejection fraction of 70%. He proceeded with CABG x [address] [facility] [address] Henry with a WILLETT to LAD and reverse SVG to diagonal 1. Carotid ultrasound prior to surgery showed no significant carotid artery disease. He developed postoperative atrial fibrillation and was started on amiodarone per protocol. He received 1 unit of blood postop day 3. He converted to sinus rhythm prior to discharge. He denies chest, arm, jaw, or neck discomfort. He denies palpitations. He denies bilateral lower extremity edema. He denies claudication. He states shortness of breath with activity that is improving. He denies shortness of breath at rest, orthopnea, or PND. He denies chronic cough. He denies significant, sudden weight gain. He denies lightheadedness, dizziness, near-syncope, or syncope. He denies blood in urine, blood in stool, or epistaxis. He denies fever with chills. He denies myalgia. He denies fatigue. His exercise level has remained stable. Intake Vital Signs 12/04/23 11:24 01/02/24 13:22 Height 6 ft 6 ft Weight: 177 lb BMI 24.0 BP 98/62 Blood Pressure Location Lt brachial Position Sitting Respiration 16 Pulse 60 Pulse Source NIBP Pulse Oximetry (%) 97 Oxygen Delivery Method room air Intake Visit Reasons: S/P [employer] 11/25 (SCANNED) Law Firm Administrator Required: No Accompanied by: Is patient in pain?: No Allergies No Known Allergies Allergy (Verified 01/02/24 13:34) Ejection fraction %: 70 Have you fallen in the past year?: Yes [facility] Medical History (Updated 01/02/24 @ 14:26 by Zeferino Lizarraga CAUSTICS LOADER, CAUSTICS LOADER-C) Postoperative atrial fibrillation Leptospirosis 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 Seizures Multiple sclerosis Surgical History (Updated 01/02/24 @ 13:44 by Loreto Mancilla) History of tonsillectomy History of total splenectomy History of left heart catheterization ( 11/24/23) History of coronary artery bypass surgery ( 11/26/23) Family History (Updated 01/02/24 @ 13:45 by Loreto Mancilla) Mother Multiple myeloma Father CVA (cerebral vascular accident) Brother CAD (coronary artery disease) History of coronary artery bypass surgery Social History (Updated 01/02/24 @ 13:47 by Loreto Mancilla) household members: spouse Smoking Status: Former smoker how long ago did patient quit smokin years ago alcohol intake: current alcohol intake frequency: holidays/special occasions only substance use type: does not use caffeine: Yes Type: carbonated beverages Number of servings: 1 and coffee Number of servings: 1 ROS Const Const: Negative for fatigue or weakness Eyes Eyes: Negative for change in vision ENT ENT: Positive for balance problems (Relates to MS); Negative for dizziness or Nosebleed/epistaxis Cardio Chest Pain: No Palpitations: No Edema: None Muscle aches with walking: None Resp Respiratory: Positive for SOB with activity (Walking increased distance. R/t cabg. Improving); Negative for SOB at rest, SOB orthopnea SOB lying down, Cough or paroxysmal nocturnal dyspnea GI GI: Negative nausea, heartburn or black,tarry stools : Negative for hematuria Musc Musc: Positive for muscle weakness (Right leg) and balance problems (Relates to MS); Negative for muscle aches/ myalgia or joint pain Skin Skin: Negative rash Neuro Neuro: Negative for dizziness, lightheadedness, near syncope, syncope or weakness [place] Hematologic/Lymphati c: Negative for easy bleeding or easy bruising Endo Endo: Negative for fatigue Allergy Allergy/Immunology: Negative for rash Cardiology Exam Const Appearance: cooperative, healthy appearing, comfortable and no acute distress Nutritional Appearance: average body habitus and well nourished Orientation: alert, awake and oriented x3 Head Head: normal to inspection Ears: hearing grossly normal bilaterally Nose: external nose normal Face and Sinus: face symmetric Mouth: moist mucous membranes Eyes General: appearance normal, both eyes and all related structures Eyelids: eyelids normal (more content not included)... Normal [facility]23 Normal [facility] Comment on above: Result Comment: [id number] BN TRANSFUSED 12/04/23 1121 Performed By: #### B KATHI, [facility] ####[facility] [id number] [place], [address] CONFIRM BLOOD TYPEon 024 ABO and Rh group Nom (Bld) Blood group B Rh(D) negative [facility] Type AND Screenon 12-03-2023 Ab SCREEN GEL Negative Normal [facility] Comment on above: Order Comment: [id number] Performed By: #### B [facility] ####[facility] [id number] [place], [address] .Auto Diffon 12-01-2023 Basophil, Absolute 0.1 10 3/mcL Normal 0.0-0.3 [facility] ([place]) Comment on above: Performed By: #### B G #### [address] [address] Basophils/100 WBC (Bld) 0.6 % Normal 0.0-2.5 A [facility] ([place]) Comment on above: Performed By: #### B G #### [address] [address] Eosinophil, Absolute 0.8 10 3/mcL High 0.0-0.7 [facility] ([place]) Comment on above: Performed By: #### B G #### [address] [address] Eosinophils/100 WBC (Bld) 5.8 % Normal 0.0-6.0 [facility] ([place]) Comment on above: Performed By: #### B G #### [address] [address] Lymphocyte, Absolute 1.1 10 3/mcL Normal 0.9-4.3 [facility] ([place]) Comment on above: Performed By: #### B G #### [address] [address] Lymphocytes/100 WBC (Bld) 8.1 % Low 20.0-40.0 [facility] ([place]) Comment on above: Performed By: #### B G #### [address] [address] Monocyte, Absolute 1.7 10 3/mcL High 0.1-1.4 [facility] ([place]) Comment on above: Performed By: #### B G #### [address] [address] Monocytes/100 WBC (Bld) 12.4 % Normal 2.0-13.0 A [facility] ([place]) Comment on above: Performed By: #### B G #### [address] [address] Neutrophils/100 WBC (Bld) 73.1 % Normal 50.0-75.0 [facility] ([place]) Comment on above: Performed By: #### B G #### [address] [address] .GFRon 12-01-2023 GFR >60 Normal [facility] ([place]) Comment on above: Result Comment: GFR Population mean for , Non- Americans Ages 20-29 = 116 mL/min/1.73 sq.m. Ages 30-39 = 107 mL/min/1.73 sq.m. Ages 40-49 = 99 mL/min/1.73 sq.m. Ages 50-59 = 93 mL/min/1.73 sq.m. Ages 60-69 = 85 mL/min/1.73 sq.m. Ages 70+ = 75 mL/min/1.73 sq.m. Chronic Kidney Disease: Less than 60 mL/min/1.73 square meters End Stage Renal Disease: Less than 15 mL/min/1.73 square meters Performed By: #### B G #### [address] [address] GFR Non- >60 Normal [facility] ([place]) Comment on above: Result Comment: GFR Population mean for , Non- Americans Ages 20-29 = 116 mL/min/1.73 sq.m. Ages 30-39 = 107 mL/min/1.73 sq.m. Ages 40-49 = 99 mL/min/1.73 sq.m. Ages 50-59 = 93 mL/min/1.73 sq.m. Ages 60-69 = 85 mL/min/1.73 sq.m. Ages 70+ = 75 mL/min/1.73 sq.m. Chronic Kidney Disease: Less than 60 mL/min/1.73 square meters End Stage Renal Disease: Less than 15 mL/min/1.73 square meters Performed By: #### B G #### [address] [address] .NEUABSon 12-01-2023 Neutrophil, Absolute 10.1 10 3/mcL High 2.3-8.1 A [facility] ([place]) Comment on above: Performed By: #### B G #### [address] [address] BMPon 12-01-2023 BUN/Creatinine Ratio 24.2 ratio High 10.0-22.0 [facility] ([place]) Comment on above: Performed By: #### B G #### [place] [id number] Calcium [Mass/Vol] 8.2 mg/dL Low 8.7-10.4 [facility] ([place]) Comment on above: Performed By: #### B G #### [place] [id number] Chloride [Moles/Vol] 108 mmol/L Normal 98-110 [facility] ([place]) Comment on above: Performed By: #### B G #### [place] [id number] CO2 [Moles/Vol] 24 mmol/L Normal 22-32 [facility] ([place]) Comment on above: Performed By: #### B G #### [place] [address] Creatinine [Mass/Vol] 0.95 mg/dL Normal 0.60-1.40 [facility] ([place]) Comment on above: Performed By: #### B G #### [address] [address] Electrolyte Balance 5.0 mEq/L Normal 4.0-15.0 [facility] ([place]) Comment on above: Performed By: #### B G #### [place] [id number] Glucose [Mass/Vol] 105 mg/dL Normal 82-115 [facility] ([place]) Comment on above: Performed By: #### B G #### [place] [id number] Potassium [Moles/Vol] 3.9 mmol/L Normal 3.5-5.0 [facility] ([place]) Comment on above: Performed By: #### B G #### [place] [id number] Sodium [Moles/Vol] 137 mmol/L Normal 136-145 [facility] ([place]) Comment on above: Performed By: #### B G #### [place] [id number] Urea nitrogen [Mass/Vol] 23.0 mg/dL High 8.0-22.0 [facility] ([place]) Comment on above: Performed By: #### B G #### [place] [id number] CBCon 12-01-2023 Erythrocyte distribution width (RBC) [Ratio] 18.3 % High 11.5-15.5 [facility] ([place]) Comment on above: Performed By: #### B G #### [place] [id number] Hematocrit (Bld) [Volume fraction] 23.6 % Low 40.0-52.0 [facility] ([place]) Comment on above: Performed By: #### B G #### [place] [id number] Hgb 7.6 G/dL Low 13.0-17.5 [facility] ([place]) Comment on above: Performed By: #### B G #### [place] [id number] MCH (RBC) [Entitic mass] 27.0 pg Normal 27.0-33.0 [facility] ([place]) Comment on above: Performed By: #### B G #### [place] [id number] MCHC 32.4 G/dL Normal 32.0-36.0 [facility] ([place]) Comment on above: Performed By: #### B G #### [place] [id number] MCV (RBC) [Entitic vol] 83.1 fL Normal 81.0-100.0 A [facility] ([place]) Comment on above: Performed By: #### B G #### [facility] [address] [place] [address] Platelet 330 10 3/mcL Normal 150-450 [facility] ([place]) Comment on above: Performed By: #### B G #### [facility] [address] [place] [address] Platelet mean volume (Bld) [Entitic vol] 8.6 fL Normal 6.4-10.5 [facility] ([place]) Comment on above: Performed By: #### B G #### [address] [address] RBC 2.84 10 6/mcL Low 4.50-6.00 [facility] ([place]) Comment on above: Performed By: #### B G #### [address] [address] WBC 13.8 10 3/mcL High 4.5-10.8 [facility] ([place]) Comment on above: Performed By: #### B G #### [address] [address] Cardiac Cath [facility] Cardiac Cath Diagnostic [facility] [address] [place] [address] Cardiac Cath Diagnostic MR#: [id number] Acct: [id number] Name: JUANITA JAY SONIYA Rep #: [id number] : 1955 68 From: Shravan Bernal MD PCP: Dr. Wisam Monroe MD Status:DIS SHARONA Patient Name: JUANITA JAY Study Date: 11/24/2023 Performing: Shravan Bernal MD Ht: 72 inches 182.88 cm : 1955 Wt: 185 lbs 83.8 kg Age: 68 Gender: male BSA: 2.06 PROCEDURE(S) PERFORMED DC01-(56785)LHC/COR/ LV CLINICAL PROFILE AND INDICATIONS Indications: Suspected CAD Heart Failure: None Stress/Imaging Date: 11/22/23Stress Test with SPECT MPI: Positive High Risk CAD Presentations: Unstable angina. CONCLUSIONS Severe LAD disease involving the first diagonal vessel and a calcified portion in the mid LAD with a dominant left system. RECOMMENDATIONS Surgery consult for coronary revascularization DESCRIPTION OF PROCEDURE The patient arrived to the procedure lab. The risks and benefits of the procedure as well as a full description of our services here and current unavailability of surgical backup were fully explained to the patient and/or their significant other prior to the catheterization. The Timeout was completed, verifying the correct patient and procedure. The patient's procedural site was prepped and draped in the usual fashion. Local anesthetic was given subcutaneously to right radial region with Lidocaine 2%. Using a modified Seldinger technique, arterial access was obtained via the right radial artery, a 6Fr sheath was inserted. Left Coronary Artery selective angiography was performed in multiple views using a 5 Fr. 4.0 Merrill catheter. Right Coronary Artery selective angiography was then performed in multiple views using a 5 Fr. 4.0 Merrill catheter. Left Ventriculography was performed in CHISHOLM projection using a 5 Fr. Pigtail catheter. LV to AO pullback pressures were then recorded.The arterial sheath was pulled and a TR Band was applied for hemostasis CORONARY ANGIOGRAPHY DOMINANCE: Left Dominant LEFT HEART ASSESSMENT Left Ventricular Ejection Fraction: by LV Gram 70 % Normal LV wall motion Normal Left Ventricular systolic function LEFT MAIN: Angiographically normal LEFT ANTERIOR DESCENDING ARTERY: Medium size vessel with high-grade 95% stenosis noted in the mid LAD with the ostial diagonal vessel with a 90% stenosis in a large vessel. The distal LAD appears to be minimally diseased. CIRCUMFLEX ARTERY: Mild luminal irregularities RIGHT CORONARY ARTERY: Mild luminal irregularities less than 30% COMPLICATIONS No Complications PROCEDURE MEDICATIONS Versed 1 mg IV Fentanyl 50 mcg IV Versed 1 mg IV Oxygen: 2 L/min via nasal cannula Heparin given IA 11/24/2023 08:39:57 Verapamil 2.5mg, Ntg 100mcgs, 3000 units of Heparin given IA 11/24/2023 08:39:57 SUMMARY OF HEMODYNAMIC DATA Time AIR REST ECG 08:11:23 AO 108/62 (84) SA 08:40:55 LV 113/24, 37 08:47:23 LV 92/4, 15 08:47:33 LV 80/6, 13 08:48:46 LV 82/8, 13 08:48:55 LVp 83/4, 14 08:49:08 AOp 123/0 (86) 08:49:15 Signed By Shravan Bernal MD On 12/01/2023 08:17:12 Shravan Bernal MD 12/01/23 0818 Date Shravan Bernal MD Cosigner Signature: Date (if indicated) CC: Dr. Shravan Bernal MD; Dr. Wisam Monroe MD; Dr. Nacho Issa MD Date Dictated: 11/24/23827 Date Transcribed: 12/01/23816 Wheel Mill Operator: [place] Signed Normal [facility] LABORATORYOrdered By: SYSTEM SYSTEM on 12-01-2023 Basophils (Bld) [#/Vol] 0.1 103/mcL Normal 0.0 - 0.3 10^3/mcL AH Workflow SS Basophils/100 WBC (Bld) 0.6 % Normal 0.0 - 2.5 % AH Workflow SS Calcium [Mass/Vol] 8.2 mg/dL Low 8.7 - 10. 4 mg/dL AH ADM SS Chloride [Moles/Vol] 108 mmol/L Normal 98 - 11 0 mEq/L AH ADM SS CO2 [Moles/Vol] 24 mmol/L Normal 22 - 32 mEq/L AH ADM SS Creatinine [Mass/Vol] 0.95 mg/dL Normal 0.60 - 1.40 mg/dL AH ADM SS Electrolyte Balance 5.0 mEq/L Normal 4.0 - 15 .0 mEq/L AH ADM SS Eosinophils (Bld) [#/Vol] 0.8 103/mcL High 0.0 - 0.7 10^3/mcL AH Workflow SS Eosinophils/100 WBC (Bld) 5.8 % Normal 0.0 - 6.0 % Workflow Erythrocyte distribution width (RBC) [Ratio] 18.3 % High 11.5 - 15.5 % Workflow GFR/1.73 sq M.predicted among blacks MDRD (S/P/Bld) [Vol rate/Area] ml/min/1.73sqm Invalid Interpretation Code [facility] Comment on above: Interpretive Data: GFR Population mean for , Non- Americans Ages 20-29 = 116 mL/min/1.73 sq.m. Ages 30-39 = 107 mL/min/1.73 sq.m. Ages 40-49 = 99 mL/min/1.73 sq.m. Ages 50-59 = 93 mL/min/1.73 sq.m. Ages 60-69 = 85 mL/min/1.73 sq.m. Ages 70+ = 75 mL/min/1.73 sq.m. Chronic Kidney Disease: Less than 60 mL/min/1.73 square meters End Stage Renal Disease: Less than 15 mL/min/1.73 square meters GFR/1.73 sq M.predicted among non-blacks MDRD (S/P/Bld) [Vol rate/Area] ml/min/1.73sqm Invalid Interpretation Code [facility] Comment on above: Interpretive Data: GFR Population mean for , Non- Americans Ages 20-29 = 116 mL/min/1.73 sq.m. Ages 30-39 = 107 mL/min/1.73 sq.m. Ages 40-49 = 99 mL/min/1.73 sq.m. Ages 50-59 = 93 mL/min/1.73 sq.m. Ages 60-69 = 85 mL/min/1.73 sq.m. Ages 70+ = 75 mL/min/1.73 sq.m. Chronic Kidney Disease: Less than 60 mL/min/1.73 square meters End Stage Renal Disease: Less than 15 mL/min/1.73 square meters Glucose [Mass/Vol] 105 mg/dL Normal 82 - 115 mg/dL [facility] Hematocrit (Bld) [Volume fraction] 23.6 % Low 40.0 - 52.0 % Workflow Hemoglobin (Bld) [Mass/Vol] 7.6 G/dL Low 13.0 - 17.5 G/dL AH Workflow SS Lymphocytes (Bld) [#/Vol] 1.1 103/mcL Normal 0.9 - 4.3 10^3/mcL AH Workflow SS Lymphocytes/100 WBC (Bld) 8.1 % Low 20.0 - 40.0 % AH Workflow SS MCH (RBC) [Entitic mass] 27.0 pg Normal 27.0 - 33.0 pg AH Workflow SS MCHC 32.4 G/dL Normal 32.0 - 36.0 G/dL AH Workflow SS MCV (RBC) [Entitic vol] 83.1 fL Normal 81.0 - 100.0 fL AH Workflow SS Monocytes (Bld) [#/Vol] 1.7 103/mcL High 0.1 - 1.4 10^3/mcL AH Workflow SS Monocytes/100 WBC (Bld) 12.4 % Normal 2.0 - 13.0 % AH Workflow SS Neutrophils (Bld) [#/Vol] 10.1 103/mcL High 2.3 - 8.1 10^3/mcL AH Workflow SS Neutrophils/100 WBC (Bld) 73.1 % Normal 50.0 - 75.0 % AH Workflow SS Platelet mean volume (Bld) [Entitic vol] 8.6 fL Normal 6.4 - 10.5 fL AH Workflow SS Platelets (Bld) [#/Vol] 330 103/mcL Normal 150 - 450 10^3/mcL AH Workflow SS Potassium [Moles/Vol] 3.9 mmol/L Normal 3.5 - 5.0 mEq/L AH ADM SS RBC (Bld) [#/Vol] 2.84 106/mcL Low 4.50 - 6.0 0 10^6/mcL AH Workflow SS Sodium [Moles/Vol] 137 mmol/L Normal 136 - 145 mEq/L AH ADM SS Urea nitrogen [Mass/Vol] 23.0 mg/dL High 8.0 - 22.0 mg/dL AH ADM SS Urea nitrogen/Creatinine [Mass ratio] 24.2 ratio High 10.0 - 22.0 ratio AH ADM SS WBC (Bld) [#/Vol] 13.8 103/mcL High 4.5 - 10.8 10^3/mcL AH Workflow SS XR CHEST 1 VIEWon 12-01-2023 XR CHEST 1 VIEW ORIGINAL EXAMINATION: ONE XRAY VIEW OF THE CHEST 12/01/2023 5:30 am COMPARISON: None. HISTORY: ORDERING SYSTEM PROVIDED HISTORY: Reason for Exam: Abnormal lung sounds FINDINGS: Left subclavian central venous catheter tube tip terminates in the SVC. Sternotomy wires are present the chest wall. No pneumothorax. No large effusion. No focal consolidation. IMPRESSION: No acute findings. Interpreted by: Daniela Triana MD Preliminary Report By: Daniela Triana MD Electronically signed By Daniela Triana MD Dictated Date: 12/01/2023 5:40:25 AM Prelim Date: 12/01/2023 5:57:46 AM Sign Date: 12/01/2023 5:57:46 AM Ordering Provider: CAMERON De Guzman [facility] ([place]) .Auto Diffon 11-30-2023 Basophil, Absolute 0.1 10 3/mcL Normal 0.0-0.3 [facility] ([place]) Comment on above: Performed By: #### A JACQUELYN MESA #### [address] [address] Basophils/100 WBC (Bld) 0.5 % Normal 0.0-2.5 [facility] ([place]) Comment on above: Performed By: #### JACQUELYN PADILLA #### [address] [address] Eosinophil, Absolute 0.6 10 3/mcL Normal 0.0-0.7 [facility] ([place]) Comment on above: Performed By: #### JACQUELYN PADILLA #### [address] [address] Eosinophils/100 WBC (Bld) 3.4 % Normal 0.0-6.0 [facility] ([place]) Comment on above: Performed By: #### JACQUELYN PADILLA #### [address] [address] Lymphocyte, Absolute 1.8 10 3/mcL Normal 0.9-4.3 [facility] ([place]) Comment on above: Performed By: #### JACQUELYN PADILLA #### [address] [address] Lymphocytes/100 WBC (Bld) 9.9 % Low 20.0-40.0 [facility] ([place]) Comment on above: Performed By: #### A JACQUELYN MESA #### [address] [address] Monocyte, Absolute 2.1 10 3/mcL High 0.1-1.4 [facility] ([place]) Comment on above: Performed By: #### A JACQUELYN MESA #### [address] [address] Monocytes/100 WBC (Bld) 11.7 % Normal 2.0-13.0 A [facility] ([place]) Comment on above: Performed By: #### A JACQUELYN MESA #### [address] [address] Neutrophils/100 WBC (Bld) 74.5 % Normal 50.0-75.0 [facility] ([place]) Comment on above: Performed By: #### A JACQUELYN MESA #### [address] [address] .GFRon 11-30-2023 GFR >60 Normal [facility] ([place]) Comment on above: Result Comment: GFR Population mean for , Non- Americans Ages 20-29 = 116 mL/min/1.73 sq.m. Ages 30-39 = 107 mL/min/1.73 sq.m. Ages 40-49 = 99 mL/min/1.73 sq.m. Ages 50-59 = 93 mL/min/1.73 sq.m. Ages 60-69 = 85 mL/min/1.73 sq.m. Ages 70+ = 75 mL/min/1.73 sq.m. Chronic Kidney Disease: Less than 60 mL/min/1.73 square meters End Stage Renal Disease: Less than 15 mL/min/1.73 square meters Performed By: #### R BCP #### [address] [address] GFR Non- >60 Normal [facility] ([place]) Comment on above: Result Comment: GFR Population mean for , Non- Americans Ages 20-29 = 116 mL/min/1.73 sq.m. Ages 30-39 = 107 mL/min/1.73 sq.m. Ages 40-49 = 99 mL/min/1.73 sq.m. Ages 50-59 = 93 mL/min/1.73 sq.m. Ages 60-69 = 85 mL/min/1.73 sq.m. Ages 70+ = 75 mL/min/1.73 sq.m. Chronic Kidney Disease: Less than 60 mL/min/1.73 square meters End Stage Renal Disease: Less than 15 mL/min/1.73 square meters Performed By: #### R BCP #### [address] [address] .NEUABSon 11-30-2023 Neutrophil, Absolute 13.3 10 3/mcL High 2.3-8.1 A [facility] ([place]) Comment on above: Performed By: #### A JACQUELYN MESA #### [place] [address] CBCon 11-30-2023 Erythrocyte distribution width (RBC) [Ratio] 18.1 % High 11.5-15.5 [facility] ([place]) Comment on above: Performed By: #### JACQUELYN PADILLA #### [place] [address] Hematocrit (Bld) [Volume fraction] 26.2 % Low 40.0-52.0 [facility] ([place]) Comment on above: Performed By: #### JACQUELYN PADILLA #### [place] [address] Hgb 8.4 G/dL Low 13.0-17.5 [facility] ([place]) Comment on above: Performed By: #### JACQUELYN PADILLA #### [place] [address] MCH (RBC) [Entitic mass] 26.5 pg Low 27.0-33.0 [facility] ([place]) Comment on above: Performed By: #### JACQUELYN PADILLA #### [place] [address] MCHC 32.2 G/dL Normal 32.0-36.0 [facility] ([place]) Comment on above: Performed By: #### JACQUELYN PADILLA #### [address] [address] MCV (RBC) [Entitic vol] 82.3 fL Normal 81.0-100.0 A [facility] ([place]) Comment on above: Performed By: #### JACQUELYN PADILLA #### [address] [address] Platelet 333 10 3/mcL Normal 150-450 [facility] ([place]) Comment on above: Performed By: #### A JACQUELYN MESA #### [address] [address] Platelet mean volume (Bld) [Entitic vol] 9.2 fL Normal 6.4-10.5 [facility] ([place]) Comment on above: Performed By: #### JACQUELYN PADILLA #### [address] [address] RBC 3.19 10 6/mcL Low 4.50-6.00 [facility] ([place]) Comment on above: Performed By: #### JACQUELYN PADILLA #### [address] [address] WBC 17.8 10 3/mcL High 4.5-10.8 [facility] ([place]) Comment on above: Performed By: #### JACQUELYN PADILLA #### [address] [address] CMPon 11-30-2023 Albumin Level 3.2 G/dL Normal 3.2-4.8 [facility] ([place]) Comment on above: Performed By: #### JACQUELYN PADILLA #### [address] [address] Albumin/Globulin [Mass ratio] 1.0 {ratio} Normal 0.9-1.6 [facility] ([place]) Comment on above: Performed By: #### JACQUELYN PADILLA #### [address] [address] ALP [Catalytic activity/Vol] 83 U/L Normal 38-126 [facility] ([place]) Comment on above: Performed By: #### A JACQUELYN MESA #### [address] [address] ALT/SGPT <8 Low 12-55 [facility] ([place]) Comment on above: Performed By: #### JACQEULYN PADILLA #### [address] [address] AST [Catalytic activity/Vol] 23 U/L Normal 8-34 [facility] ([place]) Comment on above: Performed By: #### A JACQUELYN MESA #### [address] [address] Bili Total 0.60 mg/dL Normal 0.20-1.20 [facility] ([place]) Comment on above: Result Comment: Use of this assay is not recommended for patients undergoing treatment with eltrombopag due to the potential for falsely elevated results. Performed By: #### JACQUELYN PADILLA #### [address] [address] BUN/Creatinine Ratio 27.0 ratio High 10.0-22.0 [facility] ([place]) Comment on above: Performed By: #### JACQUELYN PADILLA #### [address] [address] Calcium [Mass/Vol] 8.6 mg/dL Low 8.7-10.4 [facility] ([place]) Comment on above: Performed By: #### JACQUELYN PADILLA #### [address] [address] Chloride [Moles/Vol] 106 mmol/L Normal 98-110 [facility] ([place]) Comment on above: Performed By: #### JACQUELNY PADILLA #### [address] [address] CO2 [Moles/Vol] 22 mmol/L Normal 22-32 [facility] ([place]) Comment on above: Performed By: #### JACQUELYN PADILLA #### [address] [address] Creatinine [Mass/Vol] 0.89 mg/dL Normal 0.60-1.40 [facility] ([place]) Comment on above: Performed By: #### JACQUELYN PADILLA #### [address] [address] Electrolyte Balance 8.0 mEq/L Normal 4.0-15.0 [facility] ([place]) Comment on above: Performed By: #### JACQUELYN PADILLA #### [address] [address] Globulin 3.3 G/dL Normal 1.5-3.8 [facility] ([place]) Comment on above: Performed By: #### JACQUELYN PADILLA #### [address] [address] Glucose [Mass/Vol] 127 mg/dL High 82-115 [facility] ([place]) Comment on above: Performed By: #### JACQUELYN PADILLA #### [address] [address] Potassium [Moles/Vol] 4.1 mmol/L Normal 3.5-5.0 [facility] ([place]) Comment on above: Performed By: #### JACQUELYN PADILLA #### [address] [address] Sodium [Moles/Vol] 136 mmol/L Normal 136-145 [facility] ([place]) Comment on above: Performed By: #### JACQUELYN PADILLA #### [address] [address] Total Protein 6.5 G/dL Normal 5.7-8.2 [facility] ([place]) Comment on above: Result Comment: No te - New Reference Range in effect 19 Performed By: #### JACQUELYN PADILLA #### [address] [address] Urea nitrogen [Mass/Vol] 24.0 mg/dL High 8.0-22.0 [facility] ([place]) Comment on above: Performed By: #### JACQUELYN PADILLA #### [address] [address] LABORATORYOrdered By: SYSTEM SYSTEM on 11-30-2023 Albumin BCP dye [Mass/Vol] 3.2 G/dL Normal 3.2 - 4.8 G/dL ADM SS Albumin/Globulin [Mass ratio] 1.0 {ratio} Normal 0.9 - 1.6 ratio ADM SS ALP [Catalytic activity/Vol] 83 U/L Normal 38 - 126 U/L ADM SS ALT No additional P-5'-P [Catalytic activity/Vol] U/L 1 Low 12 - 55 U/L ADM SS AST [Catalytic activity/Vol] 23 U/L Normal 8 - 34 U/L ADM SS Basophils (Bld) [#/Vol] 0.1 103/mcL Normal 0.0 - 0.3 10^3/mcL Workflow SS Basophils/100 WBC (Bld) 0.5 % Normal 0.0 - 2.5 % Workflow SS Bilirubin [Mass/Vol] 0.60 mg/dL Normal 0.20 - 1.20 mg/dL ADM SS Comment on above: Interpretive Data: U se of this assay is not recommended for patients undergoing treatment with eltrombopag due to the potential for falsely elevated results. Calcium [Mass/Vol] 8.6 mg/dL Low 8.7 - 10. 4 mg/dL ADM SS Chloride [Moles/Vol] 106 mmol/L Normal 98 - 11 0 mEq/L ADM SS CO2 [Moles/Vol] 22 mmol/L Normal 22 - 32 mEq/L ADM SS Creatinine [Mass/Vol] 0.89 mg/dL Normal 0.60 - 1.40 mg/dL ADM SS Electrolyte Balance 8.0 mEq/L Normal 4.0 - 15 .0 mEq/L ADM SS Eosinophils (Bld) [#/Vol] 0.6 103/mcL Normal 0.0 - 0.7 10^3/mcL Workflow SS Eosinophils/100 WBC (Bld) 3.4 % Normal 0.0 - 6.0 % Workflow SS Erythrocyte distribution width (RBC) [Ratio] 18.1 % High 11.5 - 15.5 % Workflow SS GFR/1.73 sq M.predicted among blacks MDRD (S/P/Bld) [Vol rate/Area] ml/min/1.73sqm Invalid Interpretation Code ADM SS Comment on above: Interpretive Data: GFR Population mean for , Non- Americans Ages 20-29 = 116 mL/min/1.73 sq.m. Ages 30-39 = 107 mL/min/1.73 sq.m. Ages 40-49 = 99 mL/min/1.73 sq.m. Ages 50-59 = 93 mL/min/1.73 sq.m. Ages 60-69 = 85 mL/min/1.73 sq.m. Ages 70+ = 75 mL/min/1.73 sq.m. Chronic Kidney Disease: Less than 60 mL/min/1.73 square meters End Stage Renal Disease: Less than 15 mL/min/1.73 square meters GFR/1.73 sq M.predicted among non-blacks MDRD (S/P/Bld) [Vol rate/Area] ml/min/1.73sqm Invalid Interpretation Code ADM SS Comment on above: Interpretive Data: GFR Population mean for , Non- Americans Ages 20-29 = 116 mL/min/1.73 sq.m. Ages 30-39 = 107 mL/min/1.73 sq.m. Ages 40-49 = 99 mL/min/1.73 sq.m. Ages 50-59 = 93 mL/min/1.73 sq.m. Ages 60-69 = 85 mL/min/1.73 sq.m. Ages 70+ = 75 mL/min/1.73 sq.m. Chronic Kidney Disease: Less than 60 mL/min/1.73 square meters End Stage Renal Disease: Less than 15 mL/min/1.73 square meters Globulin 3.3 G/dL Normal 1.5 - 3.8 G/dL ADM SS Glucose [Mass/Vol] 127 mg/dL High 82 - 115 mg/dL ADM SS Hematocrit (Bld) [Volume fraction] 26.2 % Low 40.0 - 52.0 % Workflow SS Hemoglobin (Bld) [Mass/Vol] 8.4 G/dL Low 13.0 - 17.5 G/dL Workflow SS Lymphocytes (Bld) [#/Vol] 1.8 103/mcL Normal 0.9 - 4.3 10^3/mcL Workflow SS Lymphocytes/100 WBC (Bld) 9.9 % Low 20.0 - 40.0 % Workflow SS MCH (RBC) [Entitic mass] 26.5 pg Low 27.0 - 33.0 pg AH Workflow SS MCHC 32.2 G/dL Normal 32.0 - 36.0 G/dL AH Workflow SS MCV (RBC) [Entitic vol] 82.3 fL Normal 81.0 - 100.0 fL AH Workflow SS Monocytes (Bld) [#/Vol] 2.1 103/mcL High 0.1 - 1.4 10^3/mcL AH Workflow SS Monocytes/100 WBC (Bld) 11.7 % Normal 2.0 - 13.0 % AH Workflow SS Neutrophils (Bld) [#/Vol] 13.3 103/mcL High 2.3 - 8.1 10^3/mcL AH Workflow SS Neutrophils/100 WBC (Bld) 74.5 % Normal 50.0 - 75.0 % AH Workflow SS Platelet mean volume (Bld) [Entitic vol] 9.2 fL Normal 6.4 - 10.5 fL AH Workflow SS Platelets (Bld) [#/Vol] 333 103/mcL Normal 150 - 450 10^3/mcL AH Workflow SS Potassium [Moles/Vol] 4.1 mmol/L Normal 3.5 - 5.0 mEq/L ADM SS Protein [Mass/Vol] 6.5 G/dL Normal 5.7 - 8.2 G/dL AH ADM SS Comment on above: Interpretive Data: * *Note - New Reference Range in effect 19 RBC (Bld) [#/Vol] 3.19 106/mcL Low 4.50 - 6.0 0 10^6/mcL Workflow SS Sodium [Moles/Vol] 136 mmol/L Normal 136 - 145 mEq/L ADM SS Urea nitrogen [Mass/Vol] 24.0 mg/dL High 8.0 - 22.0 mg/dL ADM SS Urea nitrogen/Creatinine [Mass ratio] 27.0 ratio High 10.0 - 22.0 ratio ADM SS WBC (Bld) [#/Vol] 17.8 103/mcL High 4.5 - 10.8 10^3/mcL AH Workflow SS XR CHEST 2 VIEWSon XR CHEST 2 VIEWS ORIGINAL EXAMINATION: TWO XRAY VIEWS OF THE CHEST 11/30/2023 6:18 am COMPARISON: None. HISTORY: ORDERING SYSTEM PROVIDED HISTORY: Reason for Exam: abnormal breath sounds FINDINGS: Left subclavian central venous catheter tube in the SVC. Sternotomy wires in the chest wall. Heart size is stable. Small bilateral effusions. Hazy airspace disease at the lung bases. IMPRESSION: Small bilateral effusions. Hazy airspace disease at the lung bases. Interpreted by: Daniela Triana MD Preliminary Report By: Daniela Triana MD Electronically signed By Daniela Triana MD Dictated Date: 11/30/2023 6:26:23 AM Prelim Date: 11/30/2023 6:28:22 AM Sign Date: 11/30/2023 6:28:22 AM Ordering Provider: CAMERON De Guzman [facility] ([place]) .Auto Diffon 11-29-2023 Basophil, Absolute 0.1 10 3/mcL Normal 0.0-0.3 [facility] ([place]) Comment on above: Performed By: #### C BC, ADIFF, GFR, BMP, ANEU ####[address] [address] Basophils/100 WBC (Bld) 0.6 % Normal 0.0-2.5 [facility] ([place]) Comment on above: Performed By: #### C BC, ADIFF, GFR, BMP, ANEU ####[address] [address] Eosinophil, Absolute 0.4 10 3/mcL Normal 0.0-0.7 [facility] ([place]) Comment on above: Performed By: #### C BC, ADIFF, GFR, BMP, ANEU ####[address] [address] Eosinophils/100 WBC (Bld) 2.4 % Normal 0.0-6.0 [facility] ([place]) Comment on above: Performed By: #### C BC, ADIFF, GFR, BMP, ANEU ####[address] [address] Lymphocyte, Absolute 1.5 10 3/mcL Normal 0.9-4.3 [facility] ([place]) Comment on above: Performed By: #### C BC, ADIFF, GFR, BMP, ANEU ####[address] [address] Lymphocytes/100 WBC (Bld) 9.3 % Low 20.0-40.0 [facility] ([place]) Comment on above: Performed By: #### C BC, ADIFF, GFR, BMP, ANEU ####[address] [address] Monocyte, Absolute 2.0 10 3/mcL High 0.1-1.4 [facility] ([place]) Comment on above: Performed By: #### C BC, ADIFF, GFR, BMP, ANEU ####[address] [address] Monocytes/100 WBC (Bld) 11.8 % Normal 2.0-13.0 [facility] ([place]) Comment on above: Performed By: #### C BC, ADIFF, GFR, BMP, ANEU ####[address] [address] Neutrophils/100 WBC (Bld) 75.9 % High 50.0-75.0 [facility] ([place]) Comment on above: Performed By: #### C BC, ADIFF, GFR, BMP, ANEU ####[address] [address] .GFRon 11-29-2023 GFR >60 Normal [facility] ([place]) Comment on above: Result Comment: GFR Population mean for , Non- Americans Ages 20-29 = 116 mL/min/1.73 sq.m. Ages 30-39 = 107 mL/min/1.73 sq.m. Ages 40-49 = 99 mL/min/1.73 sq.m. Ages 50-59 = 93 mL/min/1.73 sq.m. Ages 60-69 = 85 mL/min/1.73 sq.m. Ages 70+ = 75 mL/min/1.73 sq.m. Chronic Kidney Disease: Less than 60 mL/min/1.73 square meters End Stage Renal Disease: Less than 15 mL/min/1.73 square meters Performed By: #### B G #### [address] [address] GFR Non- >60 Normal [facility] ([place]) Comment on above: Result Comment: GFR Population mean for , Non- Americans Ages 20-29 = 116 mL/min/1.73 sq.m. Ages 30-39 = 107 mL/min/1.73 sq.m. Ages 40-49 = 99 mL/min/1.73 sq.m. Ages 50-59 = 93 mL/min/1.73 sq.m. Ages 60-69 = 85 mL/min/1.73 sq.m. Ages 70+ = 75 mL/min/1.73 sq.m. Chronic Kidney Disease: Less than 60 mL/min/1.73 square meters End Stage Renal Disease: Less than 15 mL/min/1.73 square meters Performed By: #### B G #### [address] [address] .NEUABSon 11-29-2023 Neutrophil, Absolute 12.7 10 3/mcL High 2.3-8.1 [facility] ([place]) Comment on above: Performed By: #### C BC, ADIFF, GFR, BMP, ANEU ####[address] [address] BMPon 11-29-2023 BUN/Creatinine Ratio 26.4 ratio High 10.0-22.0 [facility] ([place]) Comment on above: Performed By: #### B G #### [address] [address] Calcium [Mass/Vol] 9.1 mg/dL Normal 8.7-10.4 [facility] ([place]) Comment on above: Performed By: #### B G #### [address] [address] Chloride [Moles/Vol] 107 mmol/L Normal 98-110 [facility] ([place]) Comment on above: Performed By: #### B G #### [address] [address] CO2 [Moles/Vol] 22 mmol/L Normal 22-32 [facility] ([place]) Comment on above: Performed By: #### B G #### [address] [address] Creatinine [Mass/Vol] 0.87 mg/dL Normal 0.60-1.40 [facility] ([place]) Comment on above: Performed By: #### B G #### [address] [address] Electrolyte Balance 8.0 mEq/L Normal 4.0-15.0 [facility] ([place]) Comment on above: Performed By: #### B G #### [address] [address] Glucose [Mass/Vol] 99 mg/dL Normal 82-115 [facility] ([place]) Comment on above: Performed By: #### B G #### [address] [address] Potassium [Moles/Vol] 3.9 mmol/L Normal 3.5-5.0 [facility] ([place]) Comment on above: Performed By: #### B G #### [address] [address] Sodium [Moles/Vol] 137 mmol/L Normal 136-145 [facility] ([place]) Comment on above: Performed By: #### B G #### [address] [address] Urea nitrogen [Mass/Vol] 23.0 mg/dL High 8.0-22.0 [facility] ([place]) Comment on above: Performed By: #### B G #### [address] [address] CBCon 11-29-2023 Erythrocyte distribution width (RBC) [Ratio] 17.9 % High 11.5-15.5 [facility] ([place]) Comment on above: Performed By: #### C BC, ADIFF, GFR, BMP, ANEU ####[address] [address] Hematocrit (Bld) [Volume fraction] 24.4 % Low 40.0-52.0 [facility] ([place]) Comment on above: Performed By: #### C BC, ADIFF, GFR, BMP, ANEU ####[address] [address] Hgb 8.1 G/dL Low 13.0-17.5 [facility] ([place]) Comment on above: Performed By: #### C BC, ADIFF, GFR, BMP, ANEU ####[place] [address] MCH (RBC) [Entitic mass] 27.2 pg Normal 27.0-33.0 [facility] ([place]) Comment on above: Performed By: #### C BC, ADIFF, GFR, BMP, ANEU ####[place] [address] MCHC 33.2 G/dL Normal 32.0-36.0 [facility] ([place]) Comment on above: Performed By: #### C BC, ADIFF, GFR, BMP, ANEU ####[place] [address] MCV (RBC) [Entitic vol] 81.8 fL Normal 81.0-100.0 [facility] ([place]) Comment on above: Performed By: #### C BC, ADIFF, GFR, BMP, ANEU ####[place] [address] Platelet 267 10 3/mcL Normal 150-450 [facility] ([place]) Comment on above: Performed By: #### C BC, ADIFF, GFR, BMP, ANEU ####[place] [address] Platelet mean volume (Bld) [Entitic vol] 8.7 fL Normal 6.4-10.5 [facility] ([place]) Comment on above: Performed By: #### C BC, ADIFF, GFR, BMP, ANEU ####[place] [address] RBC 2.98 10 6/mcL Low 4.50-6.00 [facility] ([place]) Comment on above: Performed By: #### C BC, ADIFF, GFR, BMP, ANEU ####[place] [address] WBC 16.7 10 3/mcL High 4.5-10.8 [facility] ([place]) Comment on above: Performed By: #### C BC, ADIFF, GFR, BMP, ANEU ####[facility] [place] [address] Pancho 11-29-2023 Potassium [Moles/Vol] 3.6 mmol/L Normal 3.5-5.0 [facility] ([place]) Comment on above: Performed By: #### K #### [facility] [address] [place] [address] LABORATORYOrdered By: SYSTEM SYSTEM on 11-29-2023 Potassium [Moles/Vol] 3.6 mmol/L Normal 3.5 - 5.0 mEq/L ADM SS Basophils (Bld) [#/Vol] 0.1 103/mcL Normal 0.0 - 0.3 10^3/mcL AH Workflow SS Basophils/100 WBC (Bld) 0.6 % Normal 0.0 - 2.5 % AH Workflow SS Calcium [Mass/Vol] 9.1 mg/dL Normal 8.7 - 10. 4 mg/dL ADM SS Chloride [Moles/Vol] 107 mmol/L Normal 98 - 11 0 mEq/L ADM SS CO2 [Moles/Vol] 22 mmol/L Normal 22 - 32 mEq/L AH ADM SS Creatinine [Mass/Vol] 0.87 mg/dL Normal 0.60 - 1.40 mg/dL AH ADM SS Electrolyte Balance 8.0 mEq/L Normal 4.0 - 15 .0 mEq/L AH ADM SS Eosinophils (Bld) [#/Vol] 0.4 103/mcL Normal 0.0 - 0.7 10^3/mcL AH Workflow SS Eosinophils/100 WBC (Bld) 2.4 % Normal 0.0 - 6.0 % AH Workflow SS Erythrocyte distribution width (RBC) [Ratio] 17.9 % High 11.5 - 15.5 % AH Workflow SS GFR/1.73 sq M.predicted among blacks MDRD (S/P/Bld) [Vol rate/Area] ml/min/1.73sqm Invalid Interpretation Code AH ADM SS Comment on above: Interpretive Data: GFR Population mean for , Non- Americans Ages 20-29 = 116 mL/min/1.73 sq.m. Ages 30-39 = 107 mL/min/1.73 sq.m. Ages 40-49 = 99 mL/min/1.73 sq.m. Ages 50-59 = 93 mL/min/1.73 sq.m. Ages 60-69 = 85 mL/min/1.73 sq.m. Ages 70+ = 75 mL/min/1.73 sq.m. Chronic Kidney Disease: Less than 60 mL/min/1.73 square meters End Stage Renal Disease: Less than 15 mL/min/1.73 square meters GFR/1.73 sq M.predicted among non-blacks MDRD (S/P/Bld) [Vol rate/Area] ml/min/1.73sqm Invalid Interpretation Code ADM SS Comment on above: Interpretive Data: GFR Population mean for , Non- Americans Ages 20-29 = 116 mL/min/1.73 sq.m. Ages 30-39 = 107 mL/min/1.73 sq.m. Ages 40-49 = 99 mL/min/1.73 sq.m. Ages 50-59 = 93 mL/min/1.73 sq.m. Ages 60-69 = 85 mL/min/1.73 sq.m. Ages 70+ = 75 mL/min/1.73 sq.m. Chronic Kidney Disease: Less than 60 mL/min/1.73 square meters End Stage Renal Disease: Less than 15 mL/min/1.73 square meters Glucose [Mass/Vol] 99 mg/dL Normal 82 - 115 mg/dL ADM SS Hematocrit (Bld) [Volume fraction] 24.4 % Low 40.0 - 52.0 % AH Workflow SS Hemoglobin (Bld) [Mass/Vol] 8.1 G/dL Low 13.0 - 17.5 G/dL AH Workflow SS Lymphocytes (Bld) [#/Vol] 1.5 103/mcL Normal 0.9 - 4.3 10^3/mcL Workflow SS Lymphocytes/100 WBC (Bld) 9.3 % Low 20.0 - 40.0 % Workflow SS MCH (RBC) [Entitic mass] 27.2 pg Normal 27.0 - 33.0 pg AH Workflow SS MCHC 33.2 G/dL Normal 32.0 - 36.0 G/dL Workflow SS MCV (RBC) [Entitic vol] 81.8 fL Normal 81.0 - 100.0 fL Workflow SS Monocytes (Bld) [#/Vol] 2.0 103/mcL High 0.1 - 1.4 10^3/mcL AH Workflow SS Monocytes/100 WBC (Bld) 11.8 % Normal 2.0 - 13.0 % AH Workflow SS Neutrophils (Bld) [#/Vol] 12.7 103/mcL High 2.3 - 8.1 10^3/mcL AH Workflow SS Neutrophils/100 WBC (Bld) 75.9 % High 50.0 - 75.0 % AH Workflow SS Platelet mean volume (Bld) [Entitic vol] 8.7 fL Normal 6.4 - 10.5 fL AH Workflow SS Platelets (Bld) [#/Vol] 267 103/mcL Normal 150 - 450 10^3/mcL AH Workflow SS RBC (Bld) [#/Vol] 2.98 106/mcL Low 4.50 - 6.0 0 10^6/mcL AH Workflow SS Sodium [Moles/Vol] 137 mmol/L Normal 136 - 145 mEq/L AH ADM SS Urea nitrogen [Mass/Vol] 23.0 mg/dL High 8.0 - 22.0 mg/dL AH ADM SS Urea nitrogen/Creatinine [Mass ratio] 26.4 ratio High 10.0 - 22.0 ratio AH ADM SS WBC (Bld) [#/Vol] 16.7 103/mcL High 4.5 - 10.8 10^3/mcL Workflow SS XR CHEST 1 VIEWon 11-29-2023 XR CHEST 1 VIEW ORIGINAL EXAMINATION: ONE XRAY VIEW OF THE CHEST 11/29/2023 5:17 am COMPARISON: 11/28/2023 HISTORY: ORDERING SYSTEM PROVIDED HISTORY: Reason for Exam: Abnormal lung sounds FINDINGS: Median sternotomy wires. Left subclavian central venous catheter tip projects at the level of mid SVC. Stable cardiomediastinal silhouette and osseous structures. No pneumothorax. Probable trace left pleural effusion, unchanged. No focal consolidation. Stable left basilar subsegmental atelectasis. IMPRESSION: Overall, no significant change in lung aeration. I have personally reviewed the images of this examination and agree with the resident's findings and interpretation. Interpreted by: Daniela Triana MD Preliminary Report By: Shazia Lopez Electronically signed By Daniela Triana MD Dictated Date: 11/29/2023 5:53:03 AM Prelim Date: 11/29/2023 5:56:36 AM Sign Date: 11/29/2023 7:36:23 AM Ordering Provider: CAMERON De Guzman [facility] ([place]) .Auto Diffon 11-28-2023 Basophil, Absolute 0.0 10 3/mcL Normal 0.0-0.3 [facility] ([place]) Comment on above: Performed By: #### P LTP #### [address] [address] Basophils/100 WBC (Bld) 0.3 % Normal 0.0-2.5 [facility] ([place]) Comment on above: Performed By: #### P LTP #### [address] [address] Eosinophil, Absolute 0.1 10 3/mcL Normal 0.0-0.7 [facility] ([place]) Comment on above: Performed By: #### P LTP #### [address] [address] Eosinophils/100 WBC (Bld) 0.4 % Normal 0.0-6.0 [facility] ([place]) Comment on above: Performed By: #### P LTP #### [address] [address] Lymphocyte, Absolute 1.2 10 3/mcL Normal 0.9-4.3 [facility] ([place]) Comment on above: Performed By: #### P LTP #### [address] [address] Lymphocytes/100 WBC (Bld) 8.1 % Low 20.0-40.0 [facility] ([place]) Comment on above: Performed By: #### P LTP #### [address] [address] Monocyte, Absolute 2.0 10 3/mcL High 0.1-1.4 [facility] ([place]) Comment on above: Performed By: #### P LTP #### [address] [address] Monocytes/100 WBC (Bld) 13.6 % High 2.0-13.0 [facility] ([place]) Comment on above: Performed By: #### P LTP #### [address] [address] Neutrophils/100 WBC (Bld) 77.6 % High 50.0-75.0 [facility] ([place]) Comment on above: Performed By: #### P LTP #### [address] [address] .GFRon 11-28-2023 GFR Non- >60 Normal [facility] ([place]) Comment on above: Result Comment: GFR Population mean for , Non- Americans Ages 20-29 = 116 mL/min/1.73 sq.m. Ages 30-39 = 107 mL/min/1.73 sq.m. Ages 40-49 = 99 mL/min/1.73 sq.m. Ages 50-59 = 93 mL/min/1.73 sq.m. Ages 60-69 = 85 mL/min/1.73 sq.m. Ages 70+ = 75 mL/min/1.73 sq.m. Chronic Kidney Disease: Less than 60 mL/min/1.73 square meters End Stage Renal Disease: Less than 15 mL/min/1.73 square meters Performed By: #### P LTP #### [address] [address] GFR >60 Normal [facility] ([place]) Comment on above: Result Comment: GFR Population mean for , Non- Americans Ages 20-29 = 116 mL/min/1.73 sq.m. Ages 30-39 = 107 mL/min/1.73 sq.m. Ages 40-49 = 99 mL/min/1.73 sq.m. Ages 50-59 = 93 mL/min/1.73 sq.m. Ages 60-69 = 85 mL/min/1.73 sq.m. Ages 70+ = 75 mL/min/1.73 sq.m. Chronic Kidney Disease: Less than 60 mL/min/1.73 square meters End Stage Renal Disease: Less than 15 mL/min/1.73 square meters Performed By: #### P LTP #### [address] [address] .Morphon 11-28-2023 Platelet Estimate Normal Normal [facility] ([place]) Comment on above: Performed By: #### P LTP #### [address] [address] RBC morphology finding Nom (Bld) Normal Normal [facility] ([place]) Comment on above: Performed By: #### P LTP #### [address] [address] .NEUABSon 11-28-2023 Neutrophil, Absolute 11.3 10 3/mcL High 2.3-8.1 [facility] ([place]) Comment on above: Performed By: #### P LTP #### [address] [address] BMPon 11-28-2023 BUN/Creatinine Ratio 24.3 ratio High 10.0-22.0 [facility] ([place]) Comment on above: Performed By: #### P LTP #### [place] [address] Calcium [Mass/Vol] 8.3 mg/dL Low 8.7-10.4 [facility] ([place]) Comment on above: Performed By: #### P LTP #### [place] [address] Chloride [Moles/Vol] 107 mmol/L Normal 98-110 [facility] ([place]) Comment on above: Performed By: #### P LTP #### [place] [address] CO2 [Moles/Vol] 23 mmol/L Normal 22-32 [facility] ([place]) Comment on above: Performed By: #### P LTP #### [place] [address] Creatinine [Mass/Vol] 1.07 mg/dL Normal 0.60-1.40 [facility] ([place]) Comment on above: Performed By: #### P LTP #### [place] [address] Electrolyte Balance 5.0 mEq/L Normal 4.0-15.0 [facility] ([place]) Comment on above: Performed By: #### P LTP #### [place] [address] Glucose [Mass/Vol] 112 mg/dL Normal 82-115 [facility] ([place]) Comment on above: Performed By: #### P LTP #### [place] [id number] Potassium [Moles/Vol] 3.6 mmol/L Normal 3.5-5.0 [facility] ([place]) Comment on above: Performed By: #### P LTP #### [place] [id number] Sodium [Moles/Vol] 135 mmol/L Low 136-145 [facility] ([place]) Comment on above: Performed By: #### P LTP #### [place] [address] Urea nitrogen [Mass/Vol] 26.0 mg/dL High 8.0-22.0 [facility] ([place]) Comment on above: Performed By: #### P LTP #### [place] [address] CBCon 11-28-2023 Erythrocyte distribution width (RBC) [Ratio] 18.0 % High 11.5-15.5 [facility] ([place]) Comment on above: Performed By: #### P LTP #### [place] [id number] Hematocrit (Bld) [Volume fraction] 21.0 % Low 40.0-52.0 [facility] ([place]) Comment on above: Performed By: #### P LTP #### [place] [address] Hgb 6.8 G/dL Critically abnormal 13.0-17.5 [facility] ([place]) Comment on above: Performed By: #### P LTP #### [place] [id number] MCH (RBC) [Entitic mass] 26.5 pg Low 27.0-33.0 [facility] ([place]) Comment on above: Performed By: #### P LTP #### [place] [address] MCHC 32.4 G/dL Normal 32.0-36.0 [facility] ([place]) Comment on above: Performed By: #### P LTP #### [place] [address] MCV (RBC) [Entitic vol] 81.6 fL Normal 81.0-100.0 [facility] ([place]) Comment on above: Performed By: #### P LTP #### [place] [address] Platelet 265 10 3/mcL Normal 150-450 [facility] ([place]) Comment on above: Performed By: #### P LTP #### [place] [address] Platelet mean volume (Bld) [Entitic vol] 8.3 fL Normal 6.4-10.5 [facility] ([place]) Comment on above: Performed By: #### P LTP #### [place] [address] RBC 2.57 10 6/mcL Low 4.50-6.00 [facility] ([place]) Comment on above: Performed By: #### P LTP #### [place] [address] WBC 14.5 10 3/mcL High 4.5-10.8 [facility] ([place]) Comment on above: Performed By: #### P LTP #### [place] [address] HHon 11-28-2023 Hematocrit (Bld) [Volume fraction] 24.6 % Low 40.0-52.0 [facility] ([place]) Comment on above: Performed By: #### B G #### [place] [address] Hgb 8.2 G/dL Low 13.0-17.5 [facility] ([place]) Comment on above: Performed By: #### B G #### [place] [address] Pancho 11-28-2023 Potassium [Moles/Vol] 4.2 mmol/L Normal 3.5-5.0 [facility] ([place]) Comment on above: Performed By: #### B G #### [address] [address] LABORATORYOrdered By: Coretta Cramer on 11-28-2023 RBC Product Ready RBC Ready for Pickup (11/28/23 5:19 AM) Normal AH BB Manual SS LABORATORYOrdered By: SYSTEM SYSTEM on 11-28-2023 Platelets LM Ql (Bld) Normal *NA* (11/28/23 4:28 AM) Invalid Interpretation Code AH Workflow SS RBC morphology finding Nom (Bld) Normal *NA* (11/28/23 4:28 AM) Invalid Interpretation Code AH Workflow SS RBC (Product)on 11-28-2023 RBC Product Ready RBC Ready for Pickup Normal [facility] ([place]) Comment on above: Performed By: #### B G #### [place] [id number] XR CHEST 1 VIEWon 11-28-2023 XR CHEST 1 VIEW ORIGINAL EXAMINATION: ONE XRAY VIEW OF THE CHEST 11/28/2023 5:56 am COMPARISON: 11/27/2023 HISTORY: ORDERING SYSTEM PROVIDED HISTORY: Reason for Exam: decreased breath sounds FINDINGS: Median sternotomy changes. Left chest tube. Mediastinal drain. Left subclavian central venous catheter tip projects at the level of proximal SVC. Left basilar streaky airspace opacities, suggests subsegmental atelectasis. No significant interval change in cardiomediastinal silhouette and osseous structures. No pneumothorax. Probable trace left pleural effusion. IMPRESSION: Left basilar subsegmental atelectasis. Otherwise, no significant interval change. I have personally reviewed the images of this examination and agree with the resident's findings and interpretation. Interpreted by: Daniela Triana MD Preliminary Report By: Shazia Lopez Electronically signed By Daniela Triana MD Dictated Date: 11/28/2023 6:15:42 AM Prelim Date: 11/28/2023 6:18:49 AM Sign Date: 11/28/2023 6:37:24 AM Ordering Provider: YU De Guzman [facility] ([place]) .Auto Diffon 11-27-2023 Basophil, Absolute 0.0 10 3/mcL Normal 0.0-0.3 [facility] ([place]) Comment on above: Performed By: #### R BCP #### [address] [address] Basophils/100 WBC (Bld) 0.2 % Normal 0.0-2.5 [facility] ([place]) Comment on above: Performed By: #### R BCP #### [address] [address] Eosinophil, Absolute 0.0 10 3/mcL Normal 0.0-0.7 [facility] ([place]) Comment on above: Performed By: #### R BCP #### [address] [address] Eosinophils/100 WBC (Bld) 0.0 % Normal 0.0-6.0 [facility] ([place]) Comment on above: Performed By: #### R BCP #### [address] [address] Lymphocyte, Absolute 1.3 10 3/mcL Normal 0.9-4.3 [facility] ([place]) Comment on above: Performed By: #### R BCP #### [address] [address] Lymphocytes/100 WBC (Bld) 7.8 % Low 20.0-40.0 [facility] ([place]) Comment on above: Performed By: #### R BCP #### [address] [address] Monocyte, Absolute 1.7 10 3/mcL High 0.1-1.4 [facility] ([place]) Comment on above: Performed By: #### R BCP #### [address] [address] Monocytes/100 WBC (Bld) 10.4 % Normal 2.0-13.0 [facility] ([place]) Comment on above: Performed By: #### R BCP #### [address] [address] Neutrophils/100 WBC (Bld) 81.6 % High 50.0-75.0 [facility] ([place]) Comment on above: Performed By: #### R BCP #### [address] [address] .GFRon 11-27-2023 GFR >60 Normal [facility] ([place]) Comment on above: Result Comment: GFR Population mean for , Non- Americans Ages 20-29 = 116 mL/min/1.73 sq.m. Ages 30-39 = 107 mL/min/1.73 sq.m. Ages 40-49 = 99 mL/min/1.73 sq.m. Ages 50-59 = 93 mL/min/1.73 sq.m. Ages 60-69 = 85 mL/min/1.73 sq.m. Ages 70+ = 75 mL/min/1.73 sq.m. Chronic Kidney Disease: Less than 60 mL/min/1.73 square meters End Stage Renal Disease: Less than 15 mL/min/1.73 square meters Performed By: #### P LTP #### [place] [address] GFR Non- >60 Normal [facility] ([place]) Comment on above: Result Comment: GFR Population mean for , Non- Americans Ages 20-29 = 116 mL/min/1.73 sq.m. Ages 30-39 = 107 mL/min/1.73 sq.m. Ages 40-49 = 99 mL/min/1.73 sq.m. Ages 50-59 = 93 mL/min/1.73 sq.m. Ages 60-69 = 85 mL/min/1.73 sq.m. Ages 70+ = 75 mL/min/1.73 sq.m. Chronic Kidney Disease: Less than 60 mL/min/1.73 square meters End Stage Renal Disease: Less than 15 mL/min/1.73 square meters Performed By: #### P LTP #### [place] [address] .NEUABSon 11-27-2023 Neutrophil, Absolute 13.2 10 3/mcL High 2.3-8.1 [facility] ([place]) Comment on above: Performed By: #### R BCP #### [place] [address] BGon 11-27-2023 Base excess Calc (Bld) [Moles/Vol] -3.0000 mmol/L Normal [facility] ([place]) Comment on above: Performed By: #### B G #### [place] [id number] CO2 [Moles/Vol] 22.3 mmol/L Normal 22.0-30.0 [facility] ([place]) Comment on above: Performed By: #### B G #### [place] [id number] HCO3 (Bld) [Moles/Vol] 21.2 mmol/L Normal 21.0-29.0 [facility] ([place]) Comment on above: Performed By: #### B G #### [place] [id number] Oxygen (Bld) [Partial pressure] 146.9 mm[Hg] High 74.0-108.0 [facility] ([place]) Comment on above: Performed By: #### B G #### [place] [address] Oxygen saturation in Blood 99.5 % High 92.0-96.0 [facility] ([place]) Comment on above: Performed By: #### B G #### [place] [id number] pCO2 34.4 mmHg Normal 32.0-46.0 [facility] ([place]) Comment on above: Performed By: #### B G #### [place] [address] pH (Bld) 7.408 [pH] Normal 7.380-7.460 [facility] ([place]) Comment on above: Performed By: #### B G #### [place] [address] CBCon 11-27-2023 Erythrocyte distribution width (RBC) [Ratio] 17.4 % High 11.5-15.5 [facility] ([place]) Comment on above: Performed By: #### R BCP #### [place] [address] Hematocrit (Bld) [Volume fraction] 25.7 % Low 40.0-52.0 [facility] ([place]) Comment on above: Performed By: #### R BCP #### [place] [address] Hgb 8.3 G/dL Low 13.0-17.5 [facility] ([place]) Comment on above: Performed By: #### R BCP #### [place] [address] MCH (RBC) [Entitic mass] 26.5 pg Low 27.0-33.0 [facility] ([place]) Comment on above: Performed By: #### R BCP #### [place] [address] MCHC 32.2 G/dL Normal 32.0-36.0 [facility] ([place]) Comment on above: Performed By: #### R BCP #### [place] [address] MCV (RBC) [Entitic vol] 82.3 fL Normal 81.0-100.0 [facility] ([place]) Comment on above: Performed By: #### R BCP #### [place] [address] Platelet 320 10 3/mcL Normal 150-450 [facility] ([place]) Comment on above: Performed By: #### R BCP #### [place] [address] Platelet mean volume (Bld) [Entitic vol] 8.0 fL Normal 6.4-10.5 [facility] ([place]) Comment on above: Performed By: #### R BCP #### [place] [address] RBC 3.13 10 6/mcL Low 4.50-6.00 [facility] ([place]) Comment on above: Performed By: #### R BCP #### [place] [address] WBC 16.2 10 3/mcL High 4.5-10.8 [facility] ([place]) Comment on above: Performed By: #### R BCP #### [place] [address] CMPon 11-27-2023 Albumin Level 3.6 G/dL Normal 3.2-4.8 [facility] ([place]) Comment on above: Performed By: #### R BCP #### [place] [id number] Albumin/Globulin [Mass ratio] 1.5 {ratio} Normal 0.9-1.6 [facility] ([place]) Comment on above: Performed By: #### R BCP #### [place] [id number] ALP [Catalytic activity/Vol] 68 U/L Normal 38-126 [facility] ([place]) Comment on above: Performed By: #### R BCP #### [place] [id number] ALT [Catalytic activity/Vol] 14 U/L Normal 12-55 [facility] ([place]) Comment on above: Performed By: #### R BCP #### [place] [id number] AST [Catalytic activity/Vol] 53 U/L High 8-34 [facility] ([place]) Comment on above: Performed By: #### R BCP #### [place] [id number] Bili Total 0.50 mg/dL Normal 0.20-1.20 [facility] ([place]) Comment on above: Result Comment: Use of this assay is not recommended for patients undergoing treatment with eltrombopag due to the potential for falsely elevated results. Performed By: #### R BCP #### [place] [id number] BUN/Creatinine Ratio 25.6 ratio High 10.0-22.0 [facility] ([place]) Comment on above: Performed By: #### R BCP #### [address] [address] Calcium [Mass/Vol] 8.5 mg/dL Low 8.7-10.4 [facility] ([place]) Comment on above: Performed By: #### R BCP #### [place] [id number] Chloride [Moles/Vol] 108 mmol/L Normal 98-110 [facility] ([place]) Comment on above: Performed By: #### R BCP #### [address] [address] CO2 [Moles/Vol] 21 mmol/L Low 22-32 [facility] ([place]) Comment on above: Performed By: #### R BCP #### [address] [address] Creatinine [Mass/Vol] 0.90 mg/dL Normal 0.60-1.40 [facility] ([place]) Comment on above: Performed By: #### R BCP #### [address] [address] Electrolyte Balance 12.0 mEq/L Normal 4.0-15.0 [facility] ([place]) Comment on above: Performed By: #### R BCP #### [place] [id number] Globulin 2.4 G/dL Normal 1.5-3.8 [facility] ([place]) Comment on above: Performed By: #### R BCP #### [address] [address] Glucose [Mass/Vol] 130 mg/dL High 82-115 [facility] ([place]) Comment on above: Performed By: #### R BCP #### [address] [address] Potassium [Moles/Vol] 3.7 mmol/L Normal 3.5-5.0 [facility] ([place]) Comment on above: Performed By: #### R BCP #### [place] [id number] Sodium [Moles/Vol] 141 mmol/L Normal 136-145 [facility] ([place]) Comment on above: Performed By: #### R BCP #### [place] [id number] Total Protein 6.0 G/dL Normal 5.7-8.2 [facility] ([place]) Comment on above: Result Comment: No te - New Reference Range in effect 19 Performed By: #### R BCP #### [address] [address] Urea nitrogen [Mass/Vol] 23.0 mg/dL High 8.0-22.0 [facility] ([place]) Comment on above: Performed By: #### R BCP #### [address] [address] Pancho 11-27-2023 Potassium [Moles/Vol] 3.8 mmol/L Normal 3.5-5.0 [facility] ([place]) Comment on above: Performed By: #### P LTP #### [place] [address] LABORATORYOrdered By: SYSTEM SYSTEM on 11-27-2023 Magnesium [Mass/Vol] 2.1 mg/dL Normal 1.6 - 2 .4 mg/dL ADM SS Albumin BCP dye [Mass/Vol] 3.6 G/dL Normal 3.2 - 4.8 G/dL AH ADM SS Albumin/Globulin [Mass ratio] 1.5 {ratio} Normal 0.9 - 1.6 ratio AH ADM SS ALP [Catalytic activity/Vol] 68 U/L Normal 38 - 126 U/L AH ADM SS ALT No additional P-5'-P [Catalytic activity/Vol] 14 U/L Normal 12 - 55 U/L AH ADM SS AST [Catalytic activity/Vol] 53 U/L High 8 - 34 U/L AH ADM SS Bilirubin [Mass/Vol] 0.50 mg/dL Normal 0.20 - 1.20 mg/dL AH ADM SS Comment on above: Interpretive Data: U se of this assay is not recommended for patients undergoing treatment with eltrombopag due to the potential for falsely elevated results. Globulin 2.4 G/dL Normal 1.5 - 3.8 G/dL AH ADM SS Protein [Mass/Vol] 6.0 G/dL Normal 5.7 - 8.2 G/dL AH ADM SS Comment on above: Interpretive Data: * *Note - New Reference Range in effect 19 LABORATORYOrdered By: Hansel Beyer on 11-27-2023 Base Excess -3.0 mmol/L Invalid Interpretation Code AH [facility] SS CO2 [Moles/Vol] 22.3 mmol/L Normal 22.0 - 30.0 mmol/L [facility] HCO3 (Bld) [Moles/Vol] 21.2 mmol/L Normal 21.0 - 29.0 mmol/L [facility] SS Oxygen (Bld) [Partial pressure] 146.9 mm[Hg] High 74.0 - 108.0 mm Hg AH [facility] SS pCO2 34.4 mm[Hg] Normal 32.0 - 46.0 mm Hg Main Rapid Comm SS pH (Bld) 7.408 [pH] Normal 7.380 - 7.460 Main [facility] SS LABORATORYOrdered By: Almaz Llamas on 11-27-2023 Glucose [Mass/Vol] 122 mg/dL High 82 - 115 mg/dL [facility] LABORATORYOrdered By: Ray Jordan on 11-27-2023 Glucose [Mass/Vol] 126 mg/dL High 82 - 115 mg/dL [facility] MGon 11-27-2023 Magnesium [Mass/Vol] 2.1 mg/dL Normal 1.6-2.4 [facility] ([place]) Comment on above: Performed By: #### P LTP #### [place] [address] XR CHEST 1 VIEWon 11-27-2023 XR CHEST 1 VIEW ORIGINAL EXAMINATION: ONE XRAY VIEW OF THE CHEST 11/27/2023 6:16 am COMPARISON: 11/26/2023 HISTORY: ORDERING SYSTEM PROVIDED HISTORY: Reason for Exam: abnormal breath sounds FINDINGS: Interval removal of ET and enteric tubes. Median sternotomy wires. Mediastinal drain. Left pleural drain. Left subclavian central venous catheter tip projects at the level of proximal SVC. No significant change in cardiomediastinal silhouette, lung aeration and osseous structures. No large pleural effusion or pneumothorax. IMPRESSION: Interval removal of ET and enteric tubes. Otherwise, no significant interval change. I have personally reviewed the images of this examination and agree with the resident's findings and interpretation. Interpreted by: Daniela Triana MD Preliminary Report By: Shazia Lopez Electronically signed By Daniela Triana MD Dictated Date: 11/27/2023 6:33:46 AM Prelim Date: 11/27/2023 6:35:08 AM Sign Date: 11/27/2023 7:26:27 AM Ordering Provider: JORDAN HENRY Normal [facility] ([place]) .GFRon 11-26-2023 GFR >60 Normal [facility] ([place]) Comment on above: Result Comment: GFR Population mean for , Non- Americans Ages 20-29 = 116 mL/min/1.73 sq.m. Ages 30-39 = 107 mL/min/1.73 sq.m. Ages 40-49 = 99 mL/min/1.73 sq.m. Ages 50-59 = 93 mL/min/1.73 sq.m. Ages 60-69 = 85 mL/min/1.73 sq.m. Ages 70+ = 75 mL/min/1.73 sq.m. Chronic Kidney Disease: Less than 60 mL/min/1.73 square meters End Stage Renal Disease: Less than 15 mL/min/1.73 square meters Performed By: #### B G #### [address] [address] GFR Non- >60 Normal [facility] ([place]) Comment on above: Result Comment: GFR Population mean for , Non- Americans Ages 20-29 = 116 mL/min/1.73 sq.m. Ages 30-39 = 107 mL/min/1.73 sq.m. Ages 40-49 = 99 mL/min/1.73 sq.m. Ages 50-59 = 93 mL/min/1.73 sq.m. Ages 60-69 = 85 mL/min/1.73 sq.m. Ages 70+ = 75 mL/min/1.73 sq.m. Chronic Kidney Disease: Less than 60 mL/min/1.73 square meters End Stage Renal Disease: Less than 15 mL/min/1.73 square meters Performed By: #### B G #### [address] [address] .Manual Diffon 11-26-2023 Bands 1.0 % Normal 0.0-5.0 [facility] ([place]) Comment on above: Performed By: #### B G #### [address] [address] Basophil %, Manual 0.0 % Normal 0.0-2.5 [facility] ([place]) Comment on above: Performed By: #### B G #### [address] [address] Basophil, Abs Manual 0.0 10 3/mcL Normal 0.0-0.3 [facility] ([place]) Comment on above: Performed By: #### B G #### [address] [address] Eosinophil %, Manual 1.0 % Normal 0.0-6.0 [facility] ([place]) Comment on above: Performed By: #### B G #### [address] [address] Eosinophil, Abs Manual 0.3 10 3/mcL Normal 0.0-0.7 [facility] ([place]) Comment on above: Performed By: #### B G #### [address] [address] Lymphocyte %, Manual 6.0 % Low 20.0-40.0 [facility] ([place]) Comment on above: Performed By: #### B G #### [address] [address] Lymphocyte, Abs Manual 1.9 10 3/mcL Normal 0.9-4.3 [facility] ([place]) Comment on above: Performed By: #### B G #### [address] [address] Monocyte %, Manual 5.0 % Normal 2.0-13.0 [facility] ([place]) Comment on above: Performed By: #### B G #### [address] [address] Monocyte, Abs Manual 1.6 10 3/mcL High 0.1-1.4 [facility] ([place]) Comment on above: Performed By: #### B G #### [address] [address] Neutrophil %, Manual 87.0 % High 50.0-75.0 [facility] ([place]) Comment on above: Performed By: #### B G #### [place] [id number] Neutrophil, Abs Manual 27.9 10 3/mcL High 2.3-8.1 [facility] ([place]) Comment on above: Performed By: #### B G #### [place] [id number] Nucleated RBC 0.0 /100 WBC Normal [facility] ([place]) Comment on above: Performed By: #### B G #### [place] [address] .Morphon 11-26-2023 Acanthocytes 1+ Normal [facility] ([place]) Comment on above: Performed By: #### B G #### [place] [address] Anisocytosis Ql (Bld) 1+ Normal [facility] ([place]) Comment on above: Performed By: #### B G #### [place] [id number] Hypochrom 1+ Normal [facility] ([place]) Comment on above: Performed By: #### B G #### [place] [id number] Platelet Estimate Normal Normal [facility] ([place]) Comment on above: Performed By: #### B G #### [place] [address] APTTon 11-26-2023 aPTT Coag (Bld) [Time] 27.3 s Normal 25.0-35.0 [facility] ([place]) Comment on above: Result Comment: For Heparin anticoagulation therapy, the recommended therapeutic range is: 54-77 seconds (APTT Correlation with Anti-Xa therapeutic range of 0.3-0.7 units/ml). PLEASE REFERENCE THE PHARMACY PROTOCOL FOR DOSING. Performed By: #### K #### [place] [address] BGon 11-26-2023 Base excess Calc (Bld) [Moles/Vol] -5.4000 mmol/L Normal [facility] ([place]) Comment on above: Performed By: #### A JACQUELYN MESA #### [address] [address] CO2 [Moles/Vol] 21.0 mmol/L Low 22.0-30.0 [facility] ([place]) Comment on above: Performed By: #### JACQUELYN PADILLA #### [address] [address] HCO3 (Bld) [Moles/Vol] 19.8 mmol/L Low 21.0-29.0 [facility] ([place]) Comment on above: Performed By: #### A JACQUELYN MESA #### [address] [address] Oxygen (Bld) [Partial pressure] 107.0 mm[Hg] Normal 74.0-108.0 [facility] ([place]) Comment on above: Performed By: #### A JACQUELYN MESA #### [address] [address] Oxygen saturation in Blood 98.1 % High 92.0-96.0 [facility] ([place]) Comment on above: Performed By: #### A JACQUELYN MESA #### [address] [address] pCO2 37.3 mmHg Normal 32.0-46.0 [facility] ([place]) Comment on above: Performed By: #### JACQUELYN PADILLA #### [address] [address] pH (Bld) 7.343 [pH] Low 7.380-7.460 [facility] ([place]) Comment on above: Performed By: #### JACQUELYN PADILLA #### [address] [address] Base excess Calc (Bld) [Moles/Vol] -6.7000 mmol/L Normal [facility] ([place]) Comment on above: Performed By: #### JACQUELYN PADILLA #### [address] [address] CO2 [Moles/Vol] 20.3 mmol/L Low 22.0-30.0 [facility] ([place]) Comment on above: Performed By: #### A JACQUELYN MESA #### [address] [address] HCO3 (Bld) [Moles/Vol] 19.1 mmol/L Low 21.0-29.0 [facility] ([place]) Comment on above: Performed By: #### A JACQUELYN MESA #### [address] [address] Oxygen (Bld) [Partial pressure] 121.3 mm[Hg] High 74.0-108.0 [facility] ([place]) Comment on above: Performed By: #### JACQUELYN PADILLA #### [address] [address] Oxygen saturation in Blood 98.7 % High 92.0-96.0 [facility] ([place]) Comment on above: Performed By: #### JACQUELYN PADILLA #### [address] [address] pCO2 39.3 mmHg Normal 32.0-46.0 [facility] ([place]) Comment on above: Performed By: #### JACQUELYN PADILLA #### [address] [address] pH (Bld) 7.305 [pH] Low 7.380-7.460 [facility] ([place]) Comment on above: Performed By: #### JACQUELYN PADILLA #### [address] [address] Base excess Calc (Bld) [Moles/Vol] -7.0000 mmol/L Normal [facility] ([place]) Comment on above: Performed By: #### B G #### [address] [address] CO2 [Moles/Vol] 19.8 mmol/L Low 22.0-30.0 [facility] ([place]) Comment on above: Performed By: #### B G #### [address] [address] HCO3 (Bld) [Moles/Vol] 18.6 mmol/L Low 21.0-29.0 [facility] ([place]) Comment on above: Performed By: #### B G #### [address] [address] Oxygen (Bld) [Partial pressure] 153.2 mm[Hg] High 74.0-108.0 [facility] ([place]) Comment on above: Performed By: #### B G #### [address] [address] Oxygen saturation in Blood 99.6 % High 92.0-96.0 [facility] ([place]) Comment on above: Performed By: #### B G #### [address] [address] pCO2 37.8 mmHg Normal 32.0-46.0 [facility] ([place]) Comment on above: Performed By: #### B G #### [address] [address] pH (Bld) 7.311 [pH] Low 7.380-7.460 [facility] ([place]) Comment on above: Performed By: #### B G #### [address] [address] Base excess Calc (Bld) [Moles/Vol] -8.4000 mmol/L Normal [facility] ([place]) Comment on above: Performed By: #### B G #### [address] [address] CO2 [Moles/Vol] 18.5 mmol/L Low 22.0-30.0 [facility] ([place]) Comment on above: Performed By: #### B G #### [address] [address] HCO3 (Bld) [Moles/Vol] 17.4 mmol/L Low 21.0-29.0 [facility] ([place]) Comment on above: Performed By: #### B G #### [address] [address] Oxygen (Bld) [Partial pressure] 144.0 mm[Hg] High 74.0-108.0 [facility] ([place]) Comment on above: Performed By: #### B G #### [address] [address] Oxygen saturation in Blood 99.4 % High 92.0-96.0 [facility] ([place]) Comment on above: Performed By: #### Asiya G #### [address] [address] pCO2 36.6 mmHg Normal 32.0-46.0 [facility] ([place]) Comment on above: Performed By: #### B G #### [address] [address] pH (Bld) 7.295 [pH] Low 7.380-7.460 [facility] ([place]) Comment on above: Performed By: #### Asiya G #### [address] [address] Base excess Calc (Bld) [Moles/Vol] -5.9000 mmol/L Normal [facility] ([place]) Comment on above: Performed By: #### Asiya G #### [place] [id number] CO2 [Moles/Vol] 19.2 mmol/L Low 22.0-30.0 [facility] ([place]) Comment on above: Performed By: #### Asiya G #### [place] [id number] HCO3 (Bld) [Moles/Vol] 18.2 mmol/L Low 21.0-29.0 [facility] ([place]) Comment on above: Performed By: #### B G #### [address] [address] Oxygen (Bld) [Partial pressure] 156.1 mm[Hg] High 74.0-108.0 [facility] ([place]) Comment on above: Performed By: #### Asiya G #### [address] [address] Oxygen saturation in Blood 99.3 % High 92.0-96.0 [facility] ([place]) Comment on above: Performed By: #### Asiya G #### [address] [address] pCO2 30.7 mmHg Low 32.0-46.0 [facility] ([place]) Comment on above: Performed By: #### B G #### [address] [address] pH (Bld) 7.391 [pH] Normal 7.380-7.460 [facility] ([place]) Comment on above: Performed By: #### B G #### [address] [address] Base excess Calc (Bld) [Moles/Vol] -5.2000 mmol/L Normal [facility] ([place]) Comment on above: Performed By: #### B G #### [address] [address] CO2 [Moles/Vol] 20.2 mmol/L Low 22.0-30.0 [facility] ([place]) Comment on above: Performed By: #### B G #### [place] [id number] HCO3 (Bld) [Moles/Vol] 19.2 mmol/L Low 21.0-29.0 [facility] ([place]) Comment on above: Performed By: #### B G #### [address] [address] Oxygen (Bld) [Partial pressure] 307.3 mm[Hg] High 74.0-108.0 [facility] ([place]) Comment on above: Performed By: #### B G #### [address] [address] Oxygen saturation in Blood 99.9 % High 92.0-96.0 [facility] ([place]) Comment on above: Performed By: #### B G #### [address] [address] pCO2 33.0 mmHg Normal 32.0-46.0 [facility] ([place]) Comment on above: Performed By: #### B G #### [address] [address] pH (Bld) 7.382 [pH] Normal 7.380-7.460 [facility] ([place]) Comment on above: Performed By: #### B G #### [address] [address] BGRPon 11-26-2023 Base Excess - POC -4.6 mmol/L Normal [facility] ([place]) Comment on above: Performed By: #### P LTP #### [place] [id number] CO2 [Moles/Vol] 21.5 mmol/L Low 22.0-30.0 [facility] ([place]) Comment on above: Performed By: #### P LTP #### [place] [id number] HCO3 (Bld) [Moles/Vol] 20.3 mmol/L Low 21.0-29.0 [facility] ([place]) Comment on above: Performed By: #### P LTP #### [place] [address] Oxygen saturation in Blood 100.0 % High 92.0-96.0 [facility] ([place]) Comment on above: Performed By: #### P LTP #### [place] [id number] PCO2 - POC 36.9 mmHg Normal 32.0-46.0 [facility] ([place]) Comment on above: Performed By: #### P LTP #### [place] [id number] pH (poct) - POC 7.359 Low 7.380-7.460 [facility] ([place]) Comment on above: Performed By: #### P LTP #### [place] [address] PO2 - POC 479.7 mmHg High 74.0-108.0 [facility] ([place]) Comment on above: Performed By: #### P LTP #### [place] [id number] Base Excess - POC -8.7 mmol/L Normal [facility] ([place]) Comment on above: Performed By: #### K #### [place] [id number] CO2 [Moles/Vol] 17.1 mmol/L Low 22.0-30.0 [facility] ([place]) Comment on above: Performed By: #### K #### [place] [id number] HCO3 (Bld) [Moles/Vol] 16.1 mmol/L Low 21.0-29.0 [facility] ([place]) Comment on above: Performed By: #### K #### [place] [id number] Oxygen saturation in Blood 99.7 % High 92.0-96.0 [facility] ([place]) Comment on above: Performed By: #### K #### [place] [id number] PCO2 - POC 31.2 mmHg Low 32.0-46.0 [facility] ([place]) Comment on above: Performed By: #### K #### [place] [id number] pH (poct) - POC 7.331 Low 7.380-7.460 [facility] ([place]) Comment on above: Performed By: #### K #### [place] [id number] PO2 - POC 481.9 mmHg High 74.0-108.0 [facility] ([place]) Comment on above: Performed By: #### K #### [place] [address] Base Excess - POC -6.3 mmol/L Normal [facility] ([place] Comment on above: Performed By: #### B G #### [place] [id number] CO2 [Moles/Vol] 20.0 mmol/L Low 22.0-30.0 [facility] ([place]) Comment on above: Performed By: #### B G #### [place] [id number] HCO3 (Bld) [Moles/Vol] 18.9 mmol/L Low 21.0-29.0 [facility] ([place]) Comment on above: Performed By: #### B G #### [address] [address] Oxygen saturation in Blood 99.7 % High 92.0-96.0 [facility] ([place]) Comment on above: Performed By: #### B G #### [address] [address] PCO2 - POC 36.5 mmHg Normal 32.0-46.0 [facility] ([place]) Comment on above: Performed By: #### B G #### [address] [address] pH (poct) - POC 7.332 Low 7.380-7.460 [facility] ([place]) Comment on above: Performed By: #### B G #### [address] [address] PO2 - POC 473.8 mmHg High 74.0-108.0 [facility] ([place]) Comment on above: Performed By: #### B G #### [address] [address] Base Excess - POC -6.4 mmol/L Normal [facility] ([place]) Comment on above: Performed By: #### B G #### [address] [address] CO2 [Moles/Vol] 19.7 mmol/L Low 22.0-30.0 [facility] ([place]) Comment on above: Performed By: #### B G #### [address] [address] HCO3 (Bld) [Moles/Vol] 18.6 mmol/L Low 21.0-29.0 [facility] ([place]) Comment on above: Performed By: #### B G #### [address] [address] Oxygen saturation in Blood 99.9 % High 92.0-96.0 [facility] ([place]) Comment on above: Performed By: #### B G #### [address] [address] PCO2 - POC 35.3 mmHg Normal 32.0-46.0 [facility] ([place]) Comment on above: Performed By: #### B G #### [address] [address] pH (poct) - POC 7.340 Low 7.380-7.460 [facility] ([place]) Comment on above: Performed By: #### B G #### [address] [address] PO2 - POC 483.5 mmHg High 74.0-108.0 [facility] ([place]) Comment on above: Performed By: #### Asiya G #### [address] [address] Base Excess - POC -4.6 mmol/L Normal [facility] ([place]) Comment on above: Performed By: #### JACQUELYN PADILLA #### [address] [address] CO2 [Moles/Vol] 21.7 mmol/L Low 22.0-30.0 [facility] ([place]) Comment on above: Performed By: #### JACQUELYN PADILLA #### [address] [address] HCO3 (Bld) [Moles/Vol] 20.5 mmol/L Low 21.0-29.0 [facility] ([place] Comment on above: Performed By: #### JACQUELYN PADILLA #### [address] [address] Oxygen saturation in Blood 99.9 % High 92.0-96.0 [facility] ([place]) Comment on above: Performed By: #### JACQUELYN PADILLA #### [address] [address] PCO2 - POC 37.9 mmHg Normal 32.0-46.0 [facility] ([place]) Comment on above: Performed By: #### JACQUELYN PADILLA #### [address] [address] pH (poct) - POC 7.351 Low 7.380-7.460 [facility] ([place]) Comment on above: Performed By: #### JACQUELYN PADILLA #### [address] [address] PO2 - POC 236.8 mmHg High 74.0-108.0 [facility] ([place]) Comment on above: Performed By: #### JACQUELYN PADILLA #### [address] [address] BMPon 11-26-2023 BUN/Creatinine Ratio 28.8 ratio High 10.0-22.0 [facility] ([place]) Comment on above: Performed By: #### B G #### [address] [address] Calcium [Mass/Vol] 8.0 mg/dL Low 8.7-10.4 [facility] ([place]) Comment on above: Performed By: #### B G #### [address] [address] Chloride [Moles/Vol] 109 mmol/L Normal 98-110 [facility] ([place]) Comment on above: Performed By: #### B G #### [address] [address] CO2 [Moles/Vol] 21 mmol/L Low 22-32 [facility] ([place]) Comment on above: Performed By: #### B G #### [address] [address] Creatinine [Mass/Vol] 0.80 mg/dL Normal 0.60-1.40 [facility] ([place]) Comment on above: Performed By: #### B G #### [address] [address] Electrolyte Balance 11.0 mEq/L Normal 4.0-15.0 [facility] ([place]) Comment on above: Performed By: #### B G #### [address] [address] Glucose [Mass/Vol] 136 mg/dL High 82-115 [facility] ([place]) Comment on above: Performed By: #### B G #### [place] [id number] Potassium [Moles/Vol] 3.9 mmol/L Normal 3.5-5.0 [facility] ([place]) Comment on above: Performed By: #### B G #### [address] [address] Sodium [Moles/Vol] 141 mmol/L Normal 136-145 [facility] ([place]) Comment on above: Performed By: #### B G #### [address] [address] Urea nitrogen [Mass/Vol] 23.0 mg/dL High 8.0-22.0 [facility] ([place]) Comment on above: Performed By: #### B G #### [place] [address] CAIONon 11-26-2023 Calcium Ionized 1.10 mmol/L Low 1.12-1.32 [facility] ([place]) Comment on above: Performed By: #### B G #### [place] [id number] CARPon 11-26-2023 Ionized Calcium - POC 1.14 mmol/L Normal 1.12-1.32 [facility] ([place] Comment on above: Performed By: #### G LURP, KRP, HGBRP, HCTRP, CLRP, NARP, CARP, BGRP ####[address] [address] Ionized Calcium - POC 1.18 mmol/L Normal 1.12-1.32 [facility] ([place]) Comment on above: Performed By: #### A JACQUELYN MESA #### [address] [address] Ionized Calcium - POC 1.16 mmol/L Normal 1.12-1.32 [facility] ([place]) Comment on above: Performed By: #### B G #### [address] [address] Ionized Calcium - POC 1.16 mmol/L Normal 1.12-1.32 [facility] ([place]) Comment on above: Performed By: #### B G #### [place] [address] Ionized Calcium - POC 1.22 mmol/L Normal 1.12-1.32 [facility] ([place]) Comment on above: Performed By: #### A JACQUELYN MESA #### [address] [address] CBCon 11-26-2023 Erythrocyte distribution width (RBC) [Ratio] 17.8 % High 11.5-15.5 [facility] ([place]) Comment on above: Performed By: #### B G #### [address] [address] Hematocrit (Bld) [Volume fraction] 28.2 % Low 40.0-52.0 [facility] ([place]) Comment on above: Performed By: #### B G #### [place] [id number] Hgb 9.0 G/dL Low 13.0-17.5 [facility] ([place]) Comment on above: Performed By: #### B G #### [place] [id number] MCH (RBC) [Entitic mass] 26.1 pg Low 27.0-33.0 [facility] ([place]) Comment on above: Performed By: #### B G #### [place] [id number] MCHC 32.0 G/dL Normal 32.0-36.0 [facility] ([place]) Comment on above: Performed By: #### B G #### [place] [id number] MCV (RBC) [Entitic vol] 81.5 fL Normal 81.0-100.0 [facility] ([place]) Comment on above: Performed By: #### B G #### [place] [id number] Platelet 327 10 3/mcL Normal 150-450 [facility] ([place]) Comment on above: Performed By: #### B G #### [place] [id number] Platelet mean volume (Bld) [Entitic vol] 8.3 fL Normal 6.4-10.5 [facility] ([place]) Comment on above: Performed By: #### B G #### [address] [address] RBC 3.46 10 6/mcL Low 4.50-6.00 [facility] ([place]) Comment on above: Performed By: #### B G #### [address] [address] WBC 31.8 10 3/mcL High 4.5-10.8 [facility] ([place]) Comment on above: Performed By: #### B G #### [address] [address] CLRPon 11-26-2023 Chloride [Moles/Vol] 107 mmol/L Normal 98-110 [facility] ([place]) Comment on above: Performed By: #### G LURP, KRP, HGBRP, HCTRP, CLRP, NARP, CARP, BGRP ####[address] [address] Chloride [Moles/Vol] 107 mmol/L Normal 98-110 [facility] ([place]) Comment on above: Performed By: #### K #### [address] [address] Chloride [Moles/Vol] 108 mmol/L Normal 98-110 [facility] ([place]) Comment on above: Performed By: #### B G #### [address] [address] Chloride [Moles/Vol] 108 mmol/L Normal 98-110 [facility] ([place]) Comment on above: Performed By: #### B G #### [address] [address] Chloride [Moles/Vol] 107 mmol/L Normal 98-110 [facility] ([place]) Comment on above: Performed By: #### A JACQUELYN MESA #### [address] [address] FIBon 11-26-2023 Fibrinogen 421 mg/dL Normal 250-560 [facility] ([place]) Comment on above: Performed By: #### K #### [address] [address] GLURPon 11-26-2023 Glucose [Mass/Vol] 121 mg/dL High 82-115 [facility] ([place]) Comment on above: Performed By: #### G LURP, KRP, HGBRP, HCTRP, CLRP, NARP, CARP, BGRP ####[address] [address] Glucose [Mass/Vol] 106 mg/dL Normal 82-115 [facility] ([place]) Comment on above: Performed By: #### K #### [address] [address] Glucose [Mass/Vol] 112 mg/dL Normal 82-115 [facility] ([place]) Comment on above: Performed By: #### B G #### [address] [address] Glucose [Mass/Vol] 95 mg/dL Normal 82-115 [facility] ([place]) Comment on above: Performed By: #### B G #### [address] [address] Glucose [Mass/Vol] 93 mg/dL Normal 82-115 [facility] ([place]) Comment on above: Performed By: #### A JACQUELYN MESA #### [address] [address] HCTRPon 11-26-2023 Hematocrit (Bld) [Volume fraction] 32.0 % Low 42.0-52.0 [facility] ([place]) Comment on above: Performed By: #### G LURP, KRP, HGBRP, HCTRP, CLRP, NARP, CARP, BGRP ####[address] [address] Hematocrit (Bld) [Volume fraction] 33.0 % Low 42.0-52.0 [facility] ([place]) Comment on above: Performed By: #### K #### [address] [address] Hematocrit (Bld) [Volume fraction] 34.0 % Low 42.0-52.0 [facility] ([place]) Comment on above: Performed By: #### B G #### [address] [address] Hematocrit (Bld) [Volume fraction] 34.0 % Low 42.0-52.0 [facility] ([place]) Comment on above: Performed By: #### B G #### [address] [address] Hematocrit (Bld) [Volume fraction] 36.0 % Low 42.0-52.0 [facility] ([place]) Comment on above: Performed By: #### A JACQUELYN MESA #### [address] [address] HGBRPon 11-26-2023 Hemoglobin (POC) 10.9 G/dL Low 13.0-17.5 [facility] ([place]) Comment on above: Performed By: #### G LURP, KRP, HGBRP, HCTRP, CLRP, NARP, CARP, BGRP ####[address] [address] Hemoglobin (POC) 11.2 G/dL Low 13.0-17.5 [facility] ([place]) Comment on above: Performed By: #### K #### [place] [id number] Hemoglobin (POC) 11.4 G/dL Low 13.0-17.5 [facility] ([place]) Comment on above: Performed By: #### B G #### [place] [id number] Hemoglobin (POC) 11.6 G/dL Low 13.0-17.5 [facility] ([place]) Comment on above: Performed By: #### B G #### [address] [address] Hemoglobin (POC) 12.2 G/dL Low 13.0-17.5 [facility] ([place]) Comment on above: Performed By: #### A JACQUELYN MESA #### [place] [address] KRPon 11-26-2023 Potassium [Moles/Vol] 3.7 mmol/L Normal 3.5-5.0 [facility] ([place]) Comment on above: Performed By: #### G LURP, KRP, HGBRP, HCTRP, CLRP, NARP, CARP, BGRP ####[address] [address] Potassium [Moles/Vol] 3.9 mmol/L Normal 3.5-5.0 [facility] ([place]) Comment on above: Performed By: #### K #### [facility] [address] [place] [address] Potassium [Moles/Vol] 3.6 mmol/L Normal 3.5-5.0 [facility] ([place]) Comment on above: Performed By: #### B G #### [address] [address] Potassium [Moles/Vol] 3.6 mmol/L Normal 3.5-5.0 [facility] ([place]) Comment on above: Performed By: #### B G #### [address] [address] Potassium [Moles/Vol] 3.9 mmol/L Normal 3.5-5.0 [facility] ([place]) Comment on above: Performed By: #### A JACQUELYN MESA #### [address] [address] LABORATORYOrdered By: Piper Ovalle on 11-26-2023 Glucose [Mass/Vol] 124 mg/dL High 82 - 115 mg/dL [facility] LABORATORYOrdered By: Marly Lawler on 11-26-2023 Base Excess -5.4 mmol/L Invalid Interpretation Code AH Main Rapid Comm SS CO2 [Moles/Vol] 21.0 mmol/L Low 22.0 - 30.0 mmol/L Main Rapid Comm SS HCO3 (Bld) [Moles/Vol] 19.8 mmol/L Low 21.0 - 29.0 mmol/L Main Rapid Comm SS Oxygen (Bld) [Partial pressure] 107.0 mm[Hg] Normal 74.0 - 108.0 mm Hg AH Main Rapid Comm SS pCO2 37.3 mm[Hg] Normal 32.0 - 46.0 mm Hg Main Rapid Comm SS pH (Bld) 7.343 [pH] Low 7.380 - 7.460 Main Rapid Comm SS Base Excess -6.7 mmol/L Invalid Interpretation Code Main Rapid Comm SS CO2 [Moles/Vol] 20.3 mmol/L Low 22.0 - 30.0 mmol/L Main Rapid Comm SS HCO3 (Bld) [Moles/Vol] 19.1 mmol/L Low 21.0 - 29.0 mmol/L Main Rapid Comm SS Oxygen (Bld) [Partial pressure] 121.3 mm[Hg] High 74.0 - 108.0 mm Hg Main Rapid Comm SS pCO2 39.3 mm[Hg] Normal 32.0 - 46.0 mm Hg Main Rapid Comm SS pH (Bld) 7.305 [pH] Low 7.380 - 7.460 Main Rapid Comm SS LABORATORYOrdered By: SYSTEM SYSTEM on 11-26-2023 Acanthocytes LM Ql (Bld) 1+ *NA* (11/26/23 12:34 PM) Invalid Interpretation Code Workflow SS Anisocytosis Ql (Bld) 1+ *NA* (11/26/23 12:34 PM) Invalid Interpretation Code Workflow SS aPTT Coag (Bld) [Time] 27.3 s Normal 25.0 - 35.0 seconds [facility] SS Comment on above: Interpretive Data: F or Heparin anticoagulation therapy, the recommended therapeutic range is: 54-77 seconds (APTT Correlation with Anti-Xa therapeutic range of 0.3-0.7 units/ml). PLEASE REFERENCE THE PHARMACY PROTOCOL FOR DOSING. Band form neutrophils/100 WBC (Bld) 1.0 % Normal 0.0 - 5.0 % Workflow SS Basophils (Bld) [#/Vol] 0.0 103/mcL Normal 0.0 - 0.3 10^3/mcL Workflow SS Basophils/100 WBC (Bld) 0.0 % Normal 0.0 - 2.5 % Workflow SS Eosinophils (Bld) [#/Vol] 0.3 103/mcL Normal 0.0 - 0.7 10^3/mcL Workflow SS Eosinophils/100 WBC (Bld) 1.0 % Normal 0.0 - 6.0 % AH Workflow SS Fibrinogen 421 mg/dL Normal 250 - 560 mg/dL [facility] SS Hypochromia Ql (Bld) 1+ *NA* (11/26/23 12:34 PM) Invalid Interpretation Code Workflow SS Lymphocytes (Bld) [#/Vol] 1.9 103/mcL Normal 0.9 - 4.3 10^3/mcL Workflow SS Lymphocytes/100 WBC (Bld) 6.0 % Low 20.0 - 40.0 % AH Workflow SS Magnesium [Mass/Vol] 2.1 mg/dL Normal 1.6 - 2 .4 mg/dL ADM SS Monocytes (Bld) [#/Vol] 1.6 103/mcL High 0.1 - 1.4 10^3/mcL AH Workflow SS Monocytes/100 WBC (Bld) 5.0 % Normal 2.0 - 13.0 % AH Workflow SS Neutrophils (Bld) [#/Vol] 27.9 103/mcL High 2.3 - 8.1 10^3/mcL Workflow SS Neutrophils/100 WBC (Bld) 87.0 % High 50.0 - 75.0 % AH Workflow SS Nucleated RBC 0.0 /100 WBC Invalid Interpretation Code Workflow SS Phosphate [Mass/Vol] 2.7 mg/dL Normal 2.4 - 5 .1 mg/dL ADM SS Comment on above: Interpretive Data: * *Note - New Reference Range in effect 19 Platelets LM Ql (Bld) Normal *NA* (11/26/23 12:34 PM) Invalid Interpretation Code Workflow SS PT Coag (PPP) [Time] 14.0 s Normal 9.0 - 1 4.4 seconds [facility] Comment on above: Interpretive Data: E ffective 10/27/07, Protime results may be affected by some antibiotics (i.e. Ciprofloxacin, Azithromycin, Bactrim) which may potentiate the action of oral anticoagulants, with further increases in Protime/INR. PT International Ratio 1.2 ratio Invalid Interpretation Code [facility] Comment on above: Interpretive Data: Pete gonzales [employer] (CHEST, 1991, 102:312S-25S) recommended therapeutic range for oral anticoagulant therapy is: LOW RISK: Prophylaxis of venous thrombosis INR: 2.0-3.0 Treatment of pulmonary embolism 2.0-3.0 Prevention of systemic embolism 2.0-3.0 HIGH RISK: Mechanical prosthetic valves 2.5-3.5 Base Excess - POC -4.6 mmol/L Invalid Interpretation Code Rapid Comm SS Chloride [Moles/Vol] 107 mmol/L Normal 98 - 11 0 mEq/L Rapid Comm SS CO2 [Moles/Vol] 21.5 mmol/L Low 22.0 - 30.0 mmol/L Rapid Comm SS Glucose [Mass/Vol] 121 mg/dL High 82 - 115 mg/dL Rapid Comm SS HCO3 (Bld) [Moles/Vol] 20.3 mmol/L Low 21.0 - 29.0 mmol/L Rapid Comm SS Hematocrit (Bld) [Volume fraction] 32.0 % Low 42.0 - 52.0 % Rapid Comm SS Hemoglobin (POC) 10.9 G/dL Low 13.0 - 17.5 G/dL Rapid Comm SS Ionized Calcium - POC 1.14 mmol/L Normal 1.12 - 1.32 mmol/L Rapid Comm SS Oxygen saturation in Blood 100.0 % High 92.0 - 96.0 % Rapid Comm SS PCO2 - POC 36.9 mm[Hg] Normal 32.0 - 46.0 mm Hg Rapid Comm SS pH (Bld) 7.359 [pH] Low 7.380 - 7.460 Rapid Comm SS PO2 - POC 479.7 mm[Hg] High 74.0 - 108.0 mm Hg Rapid Comm SS Potassium [Moles/Vol] 3.7 mmol/L Normal 3.5 - 5.0 mEq/L Rapid Comm SS Sodium [Moles/Vol] 140 mmol/L Normal 136 - 145 mEq/L Rapid Comm SS Base Excess - POC -8.7 mmol/L Invalid Interpretation Code Rapid Comm SS Chloride [Moles/Vol] 107 mmol/L Normal 98 - 11 0 mEq/L Rapid Comm SS CO2 [Moles/Vol] 17.1 mmol/L Low 22.0 - 30.0 mmol/L Rapid Comm SS Glucose [Mass/Vol] 106 mg/dL Normal 82 - 115 mg/dL Rapid Comm SS HCO3 (Bld) [Moles/Vol] 16.1 mmol/L Low 21.0 - 29.0 mmol/L Rapid Comm SS Hematocrit (Bld) [Volume fraction] 33.0 % Low 42.0 - 52.0 % Rapid Comm SS Hemoglobin (POC) 11.2 G/dL Low 13.0 - 17.5 G/dL Rapid Comm SS Ionized Calcium - POC 1.18 mmol/L Normal 1.12 - 1.32 mmol/L Rapid Comm SS Oxygen saturation in Blood 99.7 % High 92.0 - 96.0 % Rapid Comm SS PCO2 - POC 31.2 mm[Hg] Low 32.0 - 46.0 mm Hg Rapid Comm SS pH (Bld) 7.331 [pH] Low 7.380 - 7.460 Rapid Comm SS PO2 - POC 481.9 mm[Hg] High 74.0 - 108.0 mm Hg Rapid Comm SS Potassium [Moles/Vol] 3.9 mmol/L Normal 3.5 - 5.0 mEq/L Rapid Comm SS Sodium [Moles/Vol] 138 mmol/L Normal 136 - 145 mEq/L Rapid Comm SS Base Excess - POC -6.3 mmol/L Invalid Interpretation Code Rapid Comm SS Chloride [Moles/Vol] 108 mmol/L Normal 98 - 11 0 mEq/L Rapid Comm SS CO2 [Moles/Vol] 20.0 mmol/L Low 22.0 - 30.0 mmol/L Rapid Comm SS Glucose [Mass/Vol] 112 mg/dL Normal 82 - 115 mg/dL Rapid Comm SS HCO3 (Bld) [Moles/Vol] 18.9 mmol/L Low 21.0 - 29.0 mmol/L Rapid Comm SS Hematocrit (Bld) [Volume fraction] 34.0 % Low 42.0 - 52.0 % Rapid Comm SS Hemoglobin (POC) 11.4 G/dL Low 13.0 - 17.5 G/dL Rapid Comm SS Ionized Calcium - POC 1.16 mmol/L Normal 1.12 - 1.32 mmol/L Rapid Comm SS Oxygen saturation in Blood 99.7 % High 92.0 - 96.0 % Rapid Comm SS PCO2 - POC 36.5 mm[Hg] Normal 32.0 - 46.0 mm Hg Rapid Comm SS pH (Bld) 7.332 [pH] Low 7.380 - 7.460 Rapid Comm SS PO2 - POC 473.8 mm[Hg] High 74.0 - 108.0 mm Hg AH Rapid Comm SS Potassium [Moles/Vol] 3.6 mmol/L Normal 3.5 - 5.0 mEq/L AH Rapid Comm SS Sodium [Moles/Vol] 139 mmol/L Normal 136 - 145 mEq/L AH Rapid Comm SS LABORATORYOrdered By: Anju corley on 11-26-2023 Calcium Ionized 1.10 mmol/L Low 1.12 - 1.32 mmol/L AH Main Rapid Comm SS LABORATORYOrdered By: Izzy Lugo on 11-26-2023 Platelet Product Ready Platelet Ready fo r Pickup (11/26/23 5:30 AM) Normal AH BB Manual SS MGon 11-26-2023 Magnesium [Mass/Vol] 2.1 mg/dL Normal 1.6-2.4 [facility] ([place]) Comment on above: Performed By: #### B G #### [address] [address] NARPon 11-26-2023 Sodium [Moles/Vol] 140 mmol/L Normal 136-145 [facility] ([place]) Comment on above: Performed By: #### G LURP, KRP, HGBRP, HCTRP, CLRP, NARP, CARP, BGRP ####[address] [address] Sodium [Moles/Vol] 138 mmol/L Normal 136-145 [facility] ([place]) Comment on above: Performed By: #### K #### [address] [address] Sodium [Moles/Vol] 139 mmol/L Normal 136-145 [facility] ([place]) Comment on above: Performed By: #### B G #### [address] [address] Sodium [Moles/Vol] 139 mmol/L Normal 136-145 [facility] ([place]) Comment on above: Performed By: #### B G #### [address] [address] Sodium [Moles/Vol] 140 mmol/L Normal 136-145 [facility] ([place]) Comment on above: Performed By: #### JACQUELYN PADILLA #### [address] [address] PHOSon 11-26-2023 Phosphate [Mass/Vol] 2.7 mg/dL Normal 2.4-5.1 [facility] ([place]) Comment on above: Result Comment: No te - New Reference Range in effect 19 Performed By: #### B G #### [address] [address] PROon 11-26-2023 INR Coag (PPP) [Relative time] 1.2 {INR} Normal [facility] ([place]) Comment on above: Result Comment: [employer] [place] [employer] (CHEST, 1992, 102:312S-25S) recommended therapeutic range for oral anticoagulant therapy is: LOW RISK: Prophylaxis of venous thrombosis INR: 2.0-3.0 Treatment of pulmonary embolism 2.0-3.0 Prevention of systemic embolism 2.0-3.0 HIGH RISK: Mechanical prosthetic valves 2.5-3.5 Performed By: #### K #### [place] [id number] PT Coag (PPP) [Time] 14.0 s Normal 9.0-14.4 [facility] ([place]) Comment on above: Result Comment: Effe ctive 10/27/07, Protime results may be affected by some antibiotics (i.e. Ciprofloxacin, Azithromycin, Bactrim) which may potentiate the action of oral anticoagulants, with further increases in Protime/INR. Performed By: #### K #### [place] [id number] Platelet (Product)on 024 Platelet Product Ready Platelet Ready fo r Pickup Normal [facility] ([place]) Comment on above: Order Comment: ON HO LD FOR CVOR Performed By: #### P LTP #### [address] [address] XR CHEST 1 VIEWon 11-26-2023 XR CHEST 1 VIEW ORIGINAL EXAMINATION: ONE XRAY VIEW OF THE CHEST TECHNIQUE: CHEST ONE VIEW AP/PA COMPARISON: November 24, 2023. HISTORY: ORDERING SYSTEM PROVIDED HISTORY: Reason for Exam: Endotracheal tube placement Check line placement FINDINGS: Interval sternotomy with bilateral mediastinal drains in place. Enteric tube with side port just distal to the GE junction. Endotracheal tube projects 4.7 cm above the sammie. Left subclavian approach central line with tip in the mid SVC. Stable cardiomediastinal silhouette. Similar left basilar atelectasis. No pneumothorax, vascular congestion, pleural effusion, consolidation. IMPRESSION: Interval sternotomy and interventional changes as above. I have personally reviewed the images of this examination and agree with the resident's findings and interpretation. Interpreted by: Leida Knutson MD Preliminary Report By: Tawanda Penaloza MD Electronically signed By Leida Knutson MD Dictated Date: 11/26/2023 1:15:29 PM Prelim Date: 11/26/2023 1:29:23 PM Sign Date: 11/26/2023 1:29:23 PM Ordering Provider: JORDAN HENRY [facility]) XR ENTERIC TUBE PLACEMENTon 11-26-2023 XR ENTERIC TUBE PLACEMENT ORIGINAL HISTORY: Nasogastric tube placement COMPARISON: No FINDINGS: There is a nasogastric tube is tip is below the diaphragm, but more proximally is coiled in the distal esophagus. Interpreted by: Leida Knutson MD Preliminary Report By: Leida Knutson MD Electronically signed By Leida Knutson MD Dictated Date: 11/26/2023 1:20:16 PM Prelim Date: 11/26/2023 1:21:23 PM Sign Date: 11/26/2023 1:21:23 PM Ordering Provider: JORDAN HENRY [facility]) A1Con 11-25-2023 Glucose [Mass/Vol] 105 mg/dL Normal [facility] ([place]) Comment on above: Result Comment: Eloise mated Average Glucose calculated by equation ((28.7xA1C)-46.7) Estimated average glucose (eAG) is a calculated value from Hemoglobin A1C and is contact representative of the average blood glucose level in the last 2-3 month period. Normal range: less than 114 mg/dL Performed By: #### R BCP #### [address] [address] HbA1c (Bld) [Mass fraction] 5.3 % Normal 4.0-6.0 [facility]) Comment on above: Performed By: #### R BCP #### [address], [place] [address] ABO/Rh (Gel)on 11-25-2023 ABO/Rh Interp Negative Invalid Interpretation Code [facility] ([place]) Comment on above: Performed By: #### A JACQUELYN MESA #### [facility] [address] [place] [address] ABS (Gel)on 11-25-2023 ABSC Interp (Gel) Negative Normal [facility] ([place]) Comment on above: Performed By: #### A JACQUELYN MESA #### [facility] [address] [place] [address] LABORATORYOrdered By: Donovan Larios on 11-25-2023 ABO and Rh group Nom (Bld) Blood group B Rh(D) negative Invalid Interpretation Code AH BB Auto SS Blood group antibody screen Ql Negative ABSC (11/25/23 3:15 PM) Normal AH BB Auto SS LABORATORYOrdered By: Devaughn Avelar on 11-25-2023 Cholesterol [Mass/Vol] 118 mg/dL Normal 50 - 199 mg/dL ADM SS Comment on above: Interpretive Data: C holesterol Reference Interval: Less than 200 Desirable 200-239 Borderline high risk 240 and above High risk Cholesterol in HDL [Mass/Vol] 38 mg/dL Low 40 - 59 mg/dL AH ADM SS Cholesterol in LDL [Mass/Vol] 57 mg/dL Normal 0 - 129 mg/dL ADM SS Triglyceride [Mass/Vol] 114 mg/dL Normal 3 - 149 mg/dL ADM SS LABORATORYOrdered By: Almaz Mast on 11-25-2023 RBC Product Ready RBC Ready for Pickup (11/25/23 12:47 PM) Normal AH BB Manual SS LIPIDon 11-25-2023 Cholesterol [Mass/Vol] 118 mg/dL Normal 50-199 [facility] ([place]) Comment on above: Result Comment: Chol esterol Reference Interval: Less than 200 Desirable 200-239 Borderline high risk 240 and above High risk Performed By: #### B G #### [address] [address] Cholesterol in HDL [Mass/Vol] 38 mg/dL Low 40-59 [facility] ([place]) Comment on above: Performed By: #### B G #### [address] [address] Cholesterol in LDL [Mass/Vol] 57 mg/dL Normal 0-129 [facility] ([place]) Comment on above: Performed By: #### B G #### [address] [address] Triglyceride [Mass/Vol] 114 mg/dL Normal 3-149 A [facility] ([place]) Comment on above: Performed By: #### B G #### [address] [address] RBC (Product)on 11-25-2023 RBC Product Ready RBC Ready for Pickup Normal [facility] ([place]) Comment on above: Performed By: #### R BCP #### [address] [address] .Auto Diffon 11-24-2023 Basophil, Absolute 0.1 10 3/mcL Normal 0.0-0.3 [facility] ([place]) Comment on above: Performed By: #### JACQUELYN PADILLA #### [address] [address] Basophils/100 WBC (Bld) 0.6 % Normal 0.0-2.5 [facility] ([place]) Comment on above: Performed By: #### JACQUELYN PADILLA #### [address] [address] Eosinophil, Absolute 0.3 10 3/mcL Normal 0.0-0.7 [facility] ([place]) Comment on above: Performed By: #### JACQUELYN PADILLA #### [address] [address] Eosinophils/100 WBC (Bld) 2.7 % Normal 0.0-6.0 [facility] ([place]) Comment on above: Performed By: #### JACQUELYN PADILLA #### [address] [address] Lymphocyte, Absolute 1.8 10 3/mcL Normal 0.9-4.3 [facility] ([place]) Comment on above: Performed By: #### JACQUELYN PADILLA #### [address] [address] Lymphocytes/100 WBC (Bld) 16.7 % Low 20.0-40.0 [facility] ([place]) Comment on above: Performed By: #### A JACQUELYN MESA #### [address] [address] Monocyte, Absolute 1.3 10 3/mcL Normal 0.1-1.4 [facility] ([place]) Comment on above: Performed By: #### A JACQUELYN MESA #### [address] [address] Monocytes/100 WBC (Bld) 12.8 % Normal 2.0-13.0 [facility] ([place]) Comment on above: Performed By: #### A JACQUELYN MESA #### [address] [address] Neutrophils/100 WBC (Bld) 67.2 % Normal 50.0-75.0 [facility] ([place]) Comment on above: Performed By: #### JACQUELYN PADILLA #### [address] [address] .GFRon 11-24-2023 GFR >60 Normal [facility] ([place]) Comment on above: Result Comment: GFR Population mean for , Non- Americans Ages 20-29 = 116 mL/min/1.73 sq.m. Ages 30-39 = 107 mL/min/1.73 sq.m. Ages 40-49 = 99 mL/min/1.73 sq.m. Ages 50-59 = 93 mL/min/1.73 sq.m. Ages 60-69 = 85 mL/min/1.73 sq.m. Ages 70+ = 75 mL/min/1.73 sq.m. Chronic Kidney Disease: Less than 60 mL/min/1.73 square meters End Stage Renal Disease: Less than 15 mL/min/1.73 square meters Performed By: #### A JACQUELYN MESA #### [address] [address] GFR Non- >60 Normal [facility] ([place]) Comment on above: Result Comment: GFR Population mean for , Non- Americans Ages 20-29 = 116 mL/min/1.73 sq.m. Ages 30-39 = 107 mL/min/1.73 sq.m. Ages 40-49 = 99 mL/min/1.73 sq.m. Ages 50-59 = 93 mL/min/1.73 sq.m. Ages 60-69 = 85 mL/min/1.73 sq.m. Ages 70+ = 75 mL/min/1.73 sq.m. Chronic Kidney Disease: Less than 60 mL/min/1.73 square meters End Stage Renal Disease: Less than 15 mL/min/1.73 square meters Performed By: #### A JACQUELYN MESA #### [address] [address] .NEUABSon 11-24-2023 Neutrophil, Absolute 7.0 10 3/mcL Normal 2.3-8.1 [facility] ([place]) Comment on above: Performed By: #### JACQUELYN PADILLA #### [address] [address] 12 Lead EKGon 11-24-2023 12 Lead EKG [facility] Cardiovascular Services [address] [place] [address] 12 Lead EKG 11/24/23 0716 MR#: [id number] Acct: [id number] Name: JUANITA JAY Rep #: [id number] : [id number] 68 From: Shravan Bernal MD Attending Dr: Dr. Nacho Issa MD Status : ADM SHARONA Ordering Dr: Nacho Issa MD Date: 11/24/23 Location: [facility] Sex: M C Admitted: 11/21/23 Test Reason : CHEST PAIN Blood Pressure : / mmHG Vent. Rate : 078 BPM Atrial Rate : 078 BPM P-R Int : 148 ms QRS Dur : 080 ms QT Int : 398 ms P-R-T Axes : 055 -37 031 degrees QTc Int : 453 ms Normal sinus rhythm Left axis deviation Nonspecific ST and T wave abnormality Abnormal ECG When compared with ECG of 24-NOV-2023 00:48, MANUAL COMPARISON REQUIRED, DATA IS UNCONFIRMED Confirmed by SHRAVAN BERNAL MD ([id number]), editor farm journal GUILLERMINA ALEXANDRE ([id number]) on 11/24/2023 2:14:51 PM Referred By: Confirmed By:SHRAVAN BERNAL MD 11/24/23 141 Date Shravan Bernal MD CC: Dr. Wisam Monroe MD; Dr. Nacho Issa MD Signed Normal [facility] 12 Lead EKG [facility] Cardiovascular Services [address] [place] [address] 12 Lead EKG 11/24/23 0048 MR#: [id number] Acct: [id number] Name: JUANITA JAY Rep #: [id number] : 1955 68 From: Shravan Bernal MD Attending Dr: Dr. Nacho Issa MD Status : ADM SHARONA Ordering Dr: Merlin Mathias MD Date: 4 Location: [facility] Sex: M C Admitted: 11/21/23 Test Reason : AM EKG Blood Pressure : / mmHG Vent. Rate : 075 BPM Atrial Rate : 075 BPM P-R Int : 152 ms QRS Dur : 082 ms QT Int : 382 ms P-R-T Axes : 040 -30 034 degrees QTc Int : 426 ms Normal sinus rhythm Left axis deviation Abnormal ECG When compared with ECG of 23-NOV-2023 05:12, MANUAL COMPARISON REQUIRED, DATA IS UNCONFIRMED Confirmed by SHRAVAN BERNAL MD ([id number]), editor farm journal GUILLERMINA ALEXANDRE ([id number]) on 11/24/2023 2:16:53 PM Referred By: Confirmed By:SHRAVAN BERNAL MD 11/24/23 141 Date Shravan Bernal MD CC: Dr. Wisam Monroe MD; Dr. Merlin Mathias MD; Dr. Nacho Issa MD Signed Normal [facility] APTTon 11-24-2023 aPTT Coag (Bld) [Time] 34.7 s Normal 25.0-35.0 [facility] ([place]) Comment on above: Result Comment: For Heparin anticoagulation therapy, the recommended therapeutic range is: 54-77 seconds (APTT Correlation with Anti-Xa therapeutic range of 0.3-0.7 units/ml). PLEASE REFERENCE THE PHARMACY PROTOCOL FOR DOSING. Performed By: #### R BCP #### [address] [address] BGon 11-24-2023 Base excess Calc (Bld) [Moles/Vol] -3.2000 mmol/L Normal [facility] ([place]) Comment on above: Order Comment: on Ro om Air. Preop Cardiothoracic OR (date) Performed By: #### B G #### [address] [address] CO2 [Moles/Vol] 21.6 mmol/L Low 22.0-30.0 [facility] ([place]) Comment on above: Order Comment: on Ro om Air. Preop Cardiothoracic OR (date) Performed By: #### B G #### [address] [address] HCO3 (Bld) [Moles/Vol] 20.6 mmol/L Low 21.0-29.0 A [facility] ([place]) Comment on above: Order Comment: on Ro om Air. Preop Cardiothoracic OR (date) Performed By: #### B G #### [address] [address] Oxygen (Bld) [Partial pressure] 71.2 mm[Hg] Low 74.0-108.0 [facility] ([place]) Comment on above: Order Comment: on Ro om Air. Preop Cardiothoracic OR (date) Performed By: #### B G #### [address] [address] Oxygen saturation in Blood 95.0 % Normal 92.0-96.0 [facility] ([place]) Comment on above: Order Comment: on Ro om Air. Preop Cardiothoracic OR (date) Performed By: #### Asiya G #### [address] [address] pCO2 33.0 mmHg Normal 32.0-46.0 [facility] ([place]) Comment on above: Order Comment: on Ro om Air. Preop Cardiothoracic OR (date) Performed By: #### Asiya G #### [place] [id number] pH (Bld) 7.413 [pH] Normal 7.380-7.460 [facility] ([place]) Comment on above: Order Comment: on Ro om Air. Preop Cardiothoracic OR (date) Performed By: #### Asiya G #### [address] [address] CBCon 11-24-2023 Erythrocyte distribution width (RBC) [Ratio] 17.2 % High 11.5-15.5 [facility] ([place]) Comment on above: Performed By: #### JACQUELYN PADILLA #### [place] [address] Hematocrit (Bld) [Volume fraction] 36.4 % Low 40.0-52.0 [facility] ([place]) Comment on above: Performed By: #### JACQUELYN PADILLA #### [place] [address] Hgb 11.6 G/dL Low 13.0-17.5 [facility] ([place]) Comment on above: Performed By: #### JACQUELYN PADILLA #### [address] [address] MCH (RBC) [Entitic mass] 26.0 pg Low 27.0-33.0 [facility] ([place]) Comment on above: Performed By: #### JACQUELYN PADILLA #### [place] [id number] MCHC 31.8 G/dL Low 32.0-36.0 [facility] ([place]) Comment on above: Performed By: #### JACQUELYN PADILLA #### [address] [address] MCV (RBC) [Entitic vol] 81.7 fL Normal 81.0-100.0 A [facility] ([place]) Comment on above: Performed By: #### JACQUELYN PADILLA #### [address] [address] Platelet 427 10 3/mcL Normal 150-450 [facility] ([place]) Comment on above: Performed By: #### JACQUELYN PADILLA #### [address] [address] Platelet mean volume (Bld) [Entitic vol] 8.1 fL Normal 6.4-10.5 [facility] ([place]) Comment on above: Performed By: #### JACQUELYN PADILLA #### [address] [address] RBC 4.46 10 6/mcL Low 4.50-6.00 [facility] ([place]) Comment on above: Performed By: #### JACQUELYN PADILLA #### [address] [address] WBC 10.5 10 3/mcL Normal 4.5-10.8 [facility] ([place]) Comment on above: Performed By: #### JACQUELYN PADILLA #### [address] [address] CMPon 11-24-2023 Albumin Level 3.9 G/dL Normal 3.2-4.8 [facility] ([place]) Comment on above: Performed By: #### JACQUELYN PADILLA #### [address] [address] Albumin/Globulin [Mass ratio] 1.2 {ratio} Normal 0.9-1.6 [facility] ([place]) Comment on above: Performed By: #### JACQUELYN PADILLA #### [address] [address] ALP [Catalytic activity/Vol] 98 U/L Normal 38-126 [facility] ([place]) Comment on above: Performed By: #### JACQUELYN PADILLA #### [address] [address] ALT/SGPT <8 Low 12-55 [facility] ([place]) Comment on above: Performed By: #### JACQUELYN PADILLA #### [address] [address] AST [Catalytic activity/Vol] 16 U/L Normal 8-34 [facility] ([place]) Comment on above: Performed By: #### JACQUELYN PADILLA #### [address] [address] Bili Total 0.30 mg/dL Normal 0.20-1.20 [facility] ([place]) Comment on above: Result Comment: Use of this assay is not recommended for patients undergoing treatment with eltrombopag due to the potential for falsely elevated results. Performed By: #### JACQUELYN PADILLA #### [place] [id number] BUN/Creatinine Ratio 20.4 ratio Normal 10.0-22.0 [facility] ([place]) Comment on above: Performed By: #### JACQUELYN PADILLA #### [address] [address] Calcium [Mass/Vol] 8.7 mg/dL Normal 8.7-10.4 [facility] ([place]) Comment on above: Performed By: #### JACQUELYN PADILLA #### [address] [address] Chloride [Moles/Vol] 113 mmol/L High 98-110 [facility] ([place]) Comment on above: Performed By: #### JACQUELYN PADILLA #### [address] [address] CO2 [Moles/Vol] 24 mmol/L Normal 22-32 [facility] ([place]) Comment on above: Performed By: #### JACQUELYN PADILLA #### [address] [address] Creatinine [Mass/Vol] 0.93 mg/dL Normal 0.60-1.40 [facility] ([place]) Comment on above: Performed By: #### JACQUELYN PADILLA #### [address] [address] Electrolyte Balance 0.0 mEq/L Low 4.0-15.0 [facility] ([place]) Comment on above: Performed By: #### JACQUELYN PADILLA #### [address] [address] Globulin 3.2 G/dL Normal 1.5-3.8 [facility] ([place]) Comment on above: Performed By: #### JACQUELYN PADILLA #### [address] [address] Glucose [Mass/Vol] 99 mg/dL Normal 82-115 [facility] ([place]) Comment on above: Performed By: #### JACQUELYN PADILLA #### [address] [address] Potassium [Moles/Vol] 3.7 mmol/L Normal 3.5-5.0 [facility] ([place]) Comment on above: Performed By: #### JACQUELYN PADILLA #### [address] [address] Sodium [Moles/Vol] 137 mmol/L Normal 136-145 [facility] ([place]) Comment on above: Performed By: #### JACQUELYN PADILLA #### [address] [address] Total Protein 7.1 G/dL Normal 5.7-8.2 [facility] ([place]) Comment on above: Result Comment: No te - New Reference Range in effect 19 Performed By: #### JACQUELYN PADILLA #### [address] [address] Urea nitrogen [Mass/Vol] 19.0 mg/dL Normal 8.0-22.0 [facility] ([place]) Comment on above: Performed By: #### JACQUELYN PADILLA #### [address] [address] FIBon 11-24-2023 Fibrinogen 443 mg/dL Normal 250-560 [facility] ([place]) Comment on above: Performed By: #### R BCP #### [place] [address] LABORATORYOrdered By: Aniceto Pederson on 11-24-2023 Appearance (U) Clear (11/24/23 8:40 PM) Normal Clear AH Auto Urine SS Bilirubin Ql (U) Negative (11/24/23 8:40 PM) Normal Neg-Trace AH Auto Urine SS Color (U) Yellow (11/24/23 8:40 PM) Normal AH Auto Urine SS Glucose Test strip (U) [Mass/Vol] Negative Normal Negative AH Auto Urine SS Hemoglobin Auto test strip (U) [Mass/Vol] Trace (11/24/23 8:40 PM) Normal Neg-Trace AH Auto Urine SS Ketones Ql (U) 15 mg/dL Invalid Interpretation Code Neg-Trace AH Auto Urine SS UA Leuk Est Negative (11/24/23 8:40 PM) Normal Negative AH Auto Urine SS UA Nitrite Negative (11/24/23 8:40 PM) Normal Negative AH Auto Urine SS UA pH 6.5 (11/24/23 8:40 PM) Normal 5.0 - 8.0 AH Auto Urine SS UA Protein Negative Normal Negative AH Auto Urine SS UA Spec Grav 1.020 (11/24/23 8:40 PM) Normal AH Auto Urine SS UA Specimen Type Clean Catch (11/24/23 8:40 PM) Normal AH Auto Urine SS UA Urobilinogen 1.0 E.U./dL Normal AH Auto Urine SS LABORATORYOrdered By: SYSTEM SYSTEM on 11-24-2023 Albumin BCP dye [Mass/Vol] 3.9 G/dL Normal 3.2 - 4.8 G/dL AH ADM SS Albumin/Globulin [Mass ratio] 1.2 {ratio} Normal 0.9 - 1.6 ratio AH ADM SS ALP [Catalytic activity/Vol] 98 U/L Normal 38 - 126 U/L AH ADM SS ALT No additional P-5'-P [Catalytic activity/Vol] U/L 1 Low 12 - 55 U/L AH ADM SS aPTT Coag (Bld) [Time] 34.7 s Normal 25.0 - 35.0 seconds AH [facility] SS Comment on above: Interpretive Data: F or Heparin anticoagulation therapy, the recommended therapeutic range is: 54-77 seconds (APTT Correlation with Anti-Xa therapeutic range of 0.3-0.7 units/ml). PLEASE REFERENCE THE PHARMACY PROTOCOL FOR DOSING. AST [Catalytic activity/Vol] 16 U/L Normal 8 - 34 U/L ADM SS Bilirubin [Mass/Vol] 0.30 mg/dL Normal 0.20 - 1.20 mg/dL ADM SS Comment on above: Interpretive Data: U se of this assay is not recommended for patients undergoing treatment with eltrombopag due to the potential for falsely elevated results. Fibrinogen 443 mg/dL Normal 250 - 560 mg/dL [facility] Globulin 3.2 G/dL Normal 1.5 - 3.8 G/dL ADM SS Glucose [Mass/Vol] 105 mg/dL Invalid Interpretation Code Auto Chem SS Comment on above: Interpretive Data: E stimated average glucose (eAG) is a calculated value from Hemoglobin A1C and is contact representative of the average blood glucose level in the last 2-3 month period. Normal range: less than 114 mg/dL HbA1c (Bld) [Mass fraction] 5.3 % Normal 4.0 - 6.0 % Auto Chem SS Protein [Mass/Vol] 7.1 G/dL Normal 5.7 - 8.2 G/dL ADM Comment on above: Interpretive Data: * *Note - New Reference Range in effect 19 PT Coag (PPP) [Time] 11.9 s Normal 9.0 - 1 4.4 seconds [facility] Comment on above: Interpretive Data: E ffective 10/27/07, Protime results may be affected by some antibiotics (i.e. Ciprofloxacin, Azithromycin, Bactrim) which may potentiate the action of oral anticoagulants, with further increases in Protime/INR. PT International Ratio 1.0 ratio Invalid Interpretation Code [facility] Comment on above: Interpretive Data: Pete gonzales [employer] (CHEST, 1992, 102:312S-25S) recommended therapeutic range for oral anticoagulant therapy is: LOW RISK: Prophylaxis of venous thrombosis INR: 2.0-3.0 Treatment of pulmonary embolism 2.0-3.0 Prevention of systemic embolism 2.0-3.0 HIGH RISK: Mechanical prosthetic valves 2.5-3.5 PLTon 11-24-2023 Platelet 430 10 3/mcL Normal 150-450 [facility] ([place]) Comment on above: Performed By: #### R BCP #### [place] [address] PROon 11-24-2023 INR Coag (PPP) [Relative time] 1.0 {INR} Normal [facility] ([place]) Comment on above: Result Comment: [employer] [place] [employer] (CHEST, 1991, 102:312S-25S) recommended therapeutic range for oral anticoagulant therapy is: LOW RISK: Prophylaxis of venous thrombosis INR: 2.0-3.0 Treatment of pulmonary embolism 2.0-3.0 Prevention of systemic embolism 2.0-3.0 HIGH RISK: Mechanical prosthetic valves 2.5-3.5 Performed By: #### R BCP #### [place] [address] PT Coag (PPP) [Time] 11.9 s Normal 9.0-14.4 [facility] ([place]) Comment on above: Result Comment: Effe ctive 10/27/07, Protime results may be affected by some antibiotics (i.e. Ciprofloxacin, Azithromycin, Bactrim) which may potentiate the action of oral anticoagulants, with further increases in Protime/INR. Performed By: #### R BCP #### [place] [address] UAon 11-24-2023 Color (U) Yellow Normal [facility] ([place]) Comment on above: Performed By: #### U A #### [place] [id number] Glucose (U) [Mass/Vol] Negative Normal Negative [facility] ([place]) Comment on above: Performed By: #### U A #### [place] [id number] Ketones Ql (U) 15 mg/dL Abnormal Neg-Trace [facility] ([place]) Comment on above: Performed By: #### U A #### [place] [id number] UA Appear Clear Normal Clear [facility] ([place]) Comment on above: Performed By: #### U A #### [address] [address] UA Blood Trace Normal Neg-Trace [facility] ([place]) Comment on above: Performed By: #### U A #### [address] [address] UA Leuk Est Negative Normal Negative [facility] ([place]) Comment on above: Performed By: #### U A #### [address] [address] UA Nitrite Negative Normal Negative [facility] ([place]) Comment on above: Performed By: #### U A #### [address] [address] UA pH 6.5 Normal 5.0 - 8.0 [facility] ([place]) Comment on above: Performed By: #### U A #### [address] [address] UA Protein Negative Normal Negative [facility] ([place]) Comment on above: Performed By: #### U A #### [place] [address] UA Spec Grav 1.020 Normal [facility] ([place]) Comment on above: Performed By: #### U A #### [place] [id number] UA Specimen Type Clean Catch Normal [facility] ([place]) Comment on above: Performed By: #### U A #### [place] [id number] UA Urobilinogen 1.0 E.U./dL Normal [facility] ([place]) Comment on above: Performed By: #### U A #### [place] [address] Urobilinogen (U) [Mass/Vol] Negative Normal Neg-Trace [facility] ([place]) Comment on above: Performed By: #### U A #### [place] [address] Vitamin B12on 11-24-2023 Cobalamin (Vitamin B12) [Mass/Vol] 196 pg/mL Low 211-911 [facility] Comment on above: Performed By: #### L 503.6030, L503.0105, L506.0250, L503.6550 ####[facility] [address] [place], [address] XR CHEST 1 VIEWon 11-24-2023 XR CHEST 1 VIEW ORIGINAL EXAMINATION: ONE XRAY VIEW OF THE CHEST11/24/2023 7:46 pm COMPARISON: None available at time of dictation. HISTORY: ORDERING SYSTEM PROVIDED HISTORY: Reason for Exam: Chest Pain FINDINGS: Cardiomediastinal contours are within normal limits. Left basilar atelectasis. No focal consolidation or pulmonary edema. No pneumothorax or pleural effusion. No acute osseous abnormalities. IMPRESSION: Left basilar atelectasis. I have personally reviewed the images of this examination and agree with the resident's findings and interpretation. Interpreted by: Jameel Arevalo Preliminary Report By: Damien Swan Electronically signed By Jameel Arevalo Dictated Date: 11/24/2023 7:53:08 PM Prelim Date: 11/24/2023 7:56:07 PM Sign Date: 11/24/2023 7:56:07 PM Ordering Provider: YU RECIO [facility] ([place]) 12 Lead EKGon 11-23-2023 12 Lead EKG [facility] Cardiovascular Services [address] [place] [address] 12 Lead EKG 11/23/23511 MR#: [id number] Acct: [id number] Name: JUANITA JAY Rep #: [id number] : 1955 68 From: Shravan Bernal MD Attending Dr: Dr. Nacho Issa MD Status : ADM SHARONA Ordering Dr: Maria Alejandra Low MD Date: 11/23/23 Location: U Sex: M C Admitted: 11/21/23 Test Reason : cp Blood Pressure : / mmHG Vent. Rate : 069 BPM Atrial Rate : 069 BPM P-R Int : 148 ms QRS Dur : 082 ms QT Int : 418 ms P-R-T Axes : 046 -32 022 degrees QTc Int : 447 ms Normal sinus rhythm Left axis deviation Abnormal ECG When compared with ECG of 22-NOV-2023 05:23, MANUAL COMPARISON REQUIRED, DATA IS UNCONFIRMED Confirmed by GABE CARRILLO, SHRAVAN ([id number]), editor farm journal GUILLERMINA ALEXANDRE ([id number]) on 11/24/2023 2:17:40 PM Referred By: Confirmed By:SHRAVAN BERNAL MD 11/24/23 1417 Date Shravan Bernal MD CC: Dr. Maria Alejandra Low MD; Dr. Wisam Monroe MD; Dr. Nacho Issa MD Signed Normal [facility] Basic Metabolic Profile (BMP )on 11-23-2023 BUN/CRE 17.2 RATIO Normal 10-20 [facility] Comment on above: Performed By: #### L 500.2500, L100.0100 ####[facility] [address] [place], [address] CA,Total 8.9 mg/dL Normal 8.5-10.1 [facility] Comment on above: Performed By: #### L 500.2500, L100.0100 ####[facility] [address] [place], [address] Chloride [Moles/Vol] 114 mmol/L High 98-107 [facility] Comment on above: Performed By: #### L 500.2500, L100.0100 ####[facility] [address] [place], [address] CO2 [Moles/Vol] 22.0 mmol/L Normal 21.0-32.0 [facility] Comment on above: Performed By: #### L 500.2500, L100.0100 ####[facility] [address] [place], [address] Creatinine [Mass/Vol] 0.93 mg/dL Normal 0.70-1.30 [facility] Comment on above: Result Comment: The validity of the calculated GFR GFRAA in patients over 70 years has not been determined. Clinical correlation is essential. Performed By: #### L 500.2500, L100.0100 ####[facility] [address] [place], [address] ECRCL 83.44 ml/min Normal [facility] Comment on above: Performed By: #### L 500.2500, L100.0100 ####[facility] [address] [place], [address] EST GFR - AA 104 mL/min Normal >60 [facility] Comment on above: Result Comment: Afri can [place] GFR Calc Performed By: #### L 500.2500, L100.0100 ####[facility] [address] [place], [address] GAP 6 Normal 5-15 [facility] Comment on above: Performed By: #### L 500.2500, L100.0100 ####[facility] [address] [place], [address] GFR/1.73 sq M.predicted among non-blacks MDRD (S/P/Bld) [Vol rate/Area] 86 mL/min/{1.73_m2} Normal >60 [facility] Comment on above: Result Comment: Non- GFR Calc Performed By: #### L 500.2500, L100.0100 ####[facility] [address] [place], [address] Glucose [Mass/Vol] 97 mg/dL Normal 74-106 [facility] Comment on above: Performed By: #### L 500.2500, L100.0100 ####[facility] [address] [place], [address] Potassium [Moles/Vol] 3.8 mmol/L Normal 3.5-5.1 [facility] Comment on above: Performed By: #### L 500.2500, L100.0100 ####[facility] [address] [place], [address] Sodium [Moles/Vol] 142 mmol/L Normal 136-145 [facility] Comment on above: Performed By: #### L 500.2500, L100.0100 ####[facility] [address] [place], [address] Urea nitrogen [Mass/Vol] 16 mg/dL Normal 7-18 [facility] Comment on above: Performed By: #### L 500.2500, L100.0100 ####[facility] [address] [place], [address] CBC W/Diff, Automatedon 11-12-2023 Absolute Lymph 1.33 X10 3/uL Normal 0.83-4.51 [facility] Comment on above: Performed By: #### L 500.2500, L100.0100 ####[facility] [address] [place], [address] Absolute Neut 4.8 X10 3/uL Normal 2.0-7.7 [facility] Comment on above: Performed By: #### L 500.2500, L100.0100 ####[facility] [address] [place], [address] Basophils/100 WBC (Bld) 0.9 % Normal 0-1 [facility] Comment on above: Performed By: #### L 500.2500, L100.0100 ####[facility] [address] [place], [address] Eosinophils/100 WBC (Bld) 4.2 % Normal 0-5 [facility] Comment on above: Performed By: #### L 500.2500, L100.0100 ####[facility] [address] [place], [address] Erythrocyte distribution width (RBC) [Ratio] 16.0 % High 11.6-14.6 [facility] Comment on above: Performed By: #### L 500.2500, L100.0100 ####[facility] [address] [place], [address] Hematocrit (Bld) [Volume fraction] 37.7 % Low 40-54 [facility] Comment on above: Performed By: #### L 500.2500, L100.0100 ####[facility] [address] [place], [address] Hemoglobin (Bld) [Mass/Vol] 11.5 g/dL Low 13.0-16.5 [facility] Comment on above: Performed By: #### L 500.2500, L100.0100 ####[facility] [address] [place], [address] IG% 0.100 Normal 0.0-0.9 [facility] Comment on above: Result Comment: IG% - Immature Granulocytes (promyelocytes, myelocytes and metamyelocytes) > 1% indicates that a LEFT SHIFT is Present. Performed By: #### L 500.2500, L100.0100 ####[facility] [address] [place], [address] Lymphocytes/100 WBC (Bld) 17.9 % Low 19-41 [facility] Comment on above: Performed By: #### L 500.2500, L100.0100 ####[facility] [address] [place], [address] MCH (RBC) [Entitic mass] 25.6 pg Low 27.0-32.0 [facility] Comment on above: Performed By: #### L 500.2500, L100.0100 ####[facility] [address] [place], [address] MCHC (RBC) [Mass/Vol] 30.5 g/dL Low 32-36 [facility] Comment on above: Performed By: #### L 500.2500, L100.0100 ####[facility] [address] [place], [address] MCV (RBC) [Entitic vol] 83.8 fL Normal 80-94 [facility] Comment on above: Performed By: #### L 500.2500, L100.0100 ####[facility] [address] [place], [address] Monocytes/100 WBC (Bld) 12.3 % High 0-10 [facility] Comment on above: Performed By: #### L 500.2500, L100.0100 ####[facility] [address] [place], [address] Neutrophils/100 WBC (Bld) 64.6 % Normal 47-70 [facility] Comment on above: Performed By: #### L 500.2500, L100.0100 ####[facility] [address] [place], [address] Nucleated RBC (Bld) [#/Vol] 0 10*3/uL Normal 0-5 [facility] Comment on above: Performed By: #### L 500.2500, L100.0100 ####[facility] [address] [place], [address] Platelet mean volume (Bld) [Entitic vol] 9.8 fL Normal 6.2-12.0 [facility] Comment on above: Performed By: #### L 500.2500, L100.0100 ####[facility] [address] [place], [address] Platelets (Bld) [#/Vol] 489 10*3/uL High 150-450 [facility] Comment on above: Performed By: #### L 500.2500, L100.0100 ####[facility] [address] [place], [address] RBC (Bld) [#/Vol] 4.50 10*6/uL Low 4.6-6.2 [facility] Comment on above: Performed By: #### L 500.2500, L100.0100 ####[facility] [address] [place], [address] RDW SD 49.0 fl High 35.1-43.9 [facility] Comment on above: Performed By: #### L 500.2500, L100.0100 ####[facility] [address] [place], [address] WBC (Bld) [#/Vol] 7.4 10*3/uL Normal 4.4-11.0 [facility] Comment on above: Performed By: #### L 500.2500, L100.0100 ####[facility] [address] [facility], [address] 12 Lead EKGon 11-22-2023 12 Lead EKG [facility] Cardiovascular Services [address] [place] [address] 12 Lead EKG 11/22/23 0523 MR#: [id number] Acct: [id number] Name: JUANITA JAY Rep #: [id number] : 1955 68 From: Shravan Bernal MD Attending Dr: Dr. Nacho Issa MD Status : ADM SHARONA Ordering Dr: Maria Alejandra Low MD Date: 11/22/23 Location: U Sex: M C Admitted: 11/21/23 Test Reason : AM EKG Blood Pressure : / mmHG Vent. Rate : 062 BPM Atrial Rate : 062 BPM P-R Int : 122 ms QRS Dur : 082 ms QT Int : 432 ms P-R-T Axes : 000 -28 027 degrees QTc Int : 438 ms Normal sinus rhythm Normal ECG When compared with ECG of 21-NOV-2023 15:22, MANUAL COMPARISON REQUIRED, DATA IS UNCONFIRMED Confirmed by GABE CARRILLO, SHRAVAN ([id number]), editor farm journal GUILLERMINA ALEXANDRE ([id number]) on 11/24/2023 2:18:26 PM Referred By: Confirmed By:SHRAVAN BERNAL MD 11/24/23 1418 Date Shravan Bernal MD CC: Dr. Maria Alejandra Low MD; Dr. Wisam Monroe MD; Dr. Nacho Issa MD Signed Normal [facility] Basic Metabolic Profile (BMP )on 11-22-2023 BUN/CRE 19.9 RATIO Normal - [facility] Comment on above: Performed By: #### L 500.2500, L100.0500, L500.4100, L100.4500 #### [facility] [address] [place], [address] CA,Total 9.1 mg/dL Normal 8.5-10.1 [facility] Comment on above: Performed By: #### L 500.2500, L100.0500, L500.4100, L100.4500 #### [facility] [address] [place], [address] Chloride [Moles/Vol] 109 mmol/L High 98-107 [facility] Comment on above: Performed By: #### L 500.2500, L100.0500, L500.4100, L100.4500 #### [facility] [address] [place], [address] CO2 [Moles/Vol] 27.0 mmol/L Normal 21.0-32.0 [facility] Comment on above: Performed By: #### L 500.2500, L100.0500, L500.4100, L100.4500 #### [facility] [address] [place], [address] Creatinine [Mass/Vol] 0.96 mg/dL Normal 0.70-1.30 [facility] Comment on above: Result Comment: The validity of the calculated GFR GFRAA in patients over 70 years has not been determined. Clinical correlation is essential. Performed By: #### L 500.2500, L100.0500, L500.4100, L100.4500 #### [facility] [address] [place], [address] ECRCL 80.83 ml/min Normal [facility] Comment on above: Performed By: #### L 500.2500, L100.0500, L500.4100, L100.4500 #### [facility] [address] [place], [address] EST GFR - AA 101 mL/min Normal >60 [facility] Comment on above: Result Comment: Afri can Nam[place]ian GFR Calc Performed By: #### L 500.2500, L100.0500, L500.4100, L100.4500 #### [facility] [address] [place], [address] GAP 2 Low 5-15 [facility] Comment on above: Performed By: #### L 500.2500, L100.0500, L500.4100, L100.4500 #### [facility] [address] [place], [address] GFR/1.73 sq M.predicted among non-blacks MDRD (S/P/Bld) [Vol rate/Area] 83 mL/min/{1.73_m2} Normal >60 [facility] Comment on above: Result Comment: Non- GFR Calc Performed By: #### L 500.2500, L100.0500, L500.4100, L100.4500 #### [facility] [address] [place], [address] Glucose [Mass/Vol] 105 mg/dL Normal 74-106 [facility] Comment on above: Result Comment: Fast ing Glucose result from 100 to 125 mg/dL suggests IMPAIRED HOMEOSTASIS per A.D.A. criteria. Performed By: #### L 500.2500, L100.0500, L500.4100, L100.4500 #### [facility] [address] [place], [address] Potassium [Moles/Vol] 4.0 mmol/L Normal 3.5-5.1 [facility] Comment on above: Performed By: #### L 500.2500, L100.0500, L500.4100, L100.4500 #### [facility] [address] [place], [address] Sodium [Moles/Vol] 138 mmol/L Normal 136-145 [facility] Comment on above: Performed By: #### L 500.2500, L100.0500, L500.4100, L100.4500 #### [facility] [address] [place], [address] Urea nitrogen [Mass/Vol] 19 mg/dL High 7-18 [facility] Comment on above: Performed By: #### L 500.2500, L100.0500, L500.4100, L100.4500 #### [facility] [address] [place], [address] CBC-Complete Blood Cnt No Di ffon 11-22-2023 Erythrocyte distribution width (RBC) [Ratio] 15.9 % High 11.6-14.6 [facility] Comment on above: Performed By: #### L 500.2500, L100.0500, L500.4100, L100.4500 #### [facility] [address] [place], [address] Hematocrit (Bld) [Volume fraction] 37.0 % Low 40-54 [facility] Comment on above: Performed By: #### L 500.2500, L100.0500, L500.4100, L100.4500 #### [facility] [address] [place], [address] Hemoglobin (Bld) [Mass/Vol] 11.4 g/dL Low 13.0-16.5 [facility] Comment on above: Performed By: #### L 500.2500, L100.0500, L500.4100, L100.4500 #### [facility] [address] [place], [address] MCH (RBC) [Entitic mass] 26.0 pg Low 27.0-32.0 [facility] Comment on above: Performed By: #### L 500.2500, L100.0500, L500.4100, L100.4500 #### [facility] [address] [place], [address] MCHC (RBC) [Mass/Vol] 30.8 g/dL Low 32-36 [facility] Comment on above: Performed By: #### L 500.2500, L100.0500, L500.4100, L100.4500 #### [facility] [address] [place], [address] MCV (RBC) [Entitic vol] 84.3 fL Normal 80-94 [facility] Comment on above: Performed By: #### L 500.2500, L100.0500, L500.4100, L100.4500 #### [facility] [address] [place], [address] Platelet mean volume (Bld) [Entitic vol] 9.7 fL Normal 6.2-12.0 [facility] Comment on above: Performed By: #### L 500.2500, L100.0500, L500.4100, L100.4500 #### [facility] [address] [place], [address] Platelets (Bld) [#/Vol] 492 10*3/uL High 150-450 [facility] Comment on above: Performed By: #### L 500.2500, L100.0500, L500.4100, L100.4500 #### [facility] [address] [place], [address] RBC (Bld) [#/Vol] 4.39 10*6/uL Low 4.6-6.2 [facility] Comment on above: Performed By: #### L 500.2500, L100.0500, L500.4100, L100.4500 #### [facility] [address] [place], [address] RDW SD 48.7 fl High 35.1-43.9 [facility] Comment on above: Performed By: #### L 500.2500, L100.0500, L500.4100, L100.4500 #### [facility] [address] [place], [address] WBC (Bld) [#/Vol] 8.1 10*3/uL Normal 4.4-11.0 [facility] Comment on above: Performed By: #### L 500.2500, L100.0500, L500.4100, L100.4500 #### [facility] [address] [place], [address] Consultation - Cardiologyon 11-22-2023 Consultation - Cardiology [facility] Medical Records Department [address] [place] [address] Consultation - Cardiology 11/22/23 1447 MR#: [id number] Acct: [id number] Name: JUANITA JAY Rep #: [id number] : 1955 68 From: Merlin Mathias MD PCP: Dr. Wisam Monroe MD Status:ADM SHARONA Location: [place] [address] Assessment Plan Assessment/Plan (1) Chest pain: QUALIFIERS: Chest pain type: unspecified Qualified Code(s): R07.9 - Chest pain, unspecified PLAN: Abnormal stress test. Will proceed with coronary angiography on Friday. Risks and benefits explained to the patient in detail. Patient understands and wishes to proceed. HPI Consult Data Date of Consult: 11/22/23 HPI Narrative Reason for Consultation: Chest pain, abnormal stress test HPI Narrative: JUANITA JAY, is a 68 M who presents with left arm and retrosternal chest pain with exertion. Stress test revealed possible ischemia involving the LAD territory. Patient is currently stable and chest pain-free. [facility] Medical History (Updated 11/22/23 @ 14:[address] Merlin Mathias MD) Seizures Multiple sclerosis Home Medications ???Medication ???Instructions ???Recorded ???Last Taken ???Type citalopram 40 mg tablet 40 mg PO DAILY depression 11/21/23 11/21/23 History dimethyl fumarate 240 mg 240 mg PO BID ms 11/21/23 11/21/23 History capsule,delayed release zonisamide 100 mg capsule 200 mg PO .am seizures 11/21/23 11/21/23 History zonisamide 100 mg capsule 300 mg PO QHS seizures 11/21/23 Unknown History Allergy/AdvReac Type Severity Reaction Status Date / Time No Known Allergies Allergy Verified 11/21/23 08:56 Social History (Updated 11/21/23 @ 15:16 by Mary Hughes) household members: spouse Smoking Status: Former smoker substance use type: does not use Physical Exam Const alert and oriented x3 Eyes no scleral icterus Resp normal respiratory effort Cardio regular rate Skin no rashes or lesions noted Psych mental status grossly normal Risk Stratification Risk Stratification Applicable: No Charges/Coding Visit Charges Inpatient E M: 06310 Init Hosp L2 Objective Data Vital Signs: Vital Signs Temp Pulse Resp BP Pulse Ox O2 Del Method 97.8 F 74 18 123/96 H 97 Room Air 11/22/23 10:00 11/22/23 10:00 11/22/23 10:00 11/22/23 10:00 11/22/23 10:00 11/22/23 10:00 Oxygen Delivery Method Room Air Weight: 184 lb 11.958 oz Body Mass Index (BMI) 25.0 Intake Output: Intake and Output for Last 24 Hours 11/20/23 11/21/23 11/22/23 23:59 23:59 23:59 Intake Total 575 / 695 370 / 370 Balance 575 / 695 370 / 370 Lab / Micro Data 11/22/23 04:40 11/22/23 04:40 Labs: Laboratory Results - last 24 hr 11/21/23 09:01: Hemoglobin A1c 5.2, Iron 27 L, TIBC 437, Iron Saturation 6.2 L, Ferritin 14 L, Folate 5.60, TSH 1.31 11/22/23 04:40: WBC 8.1, RBC 4.39 L, Hgb 11.4 L, Hct 37.0 L, MCV 84.3, MCH 26.0 L, MCHC 30.8 L, RDW Std Deviation 48.7 H, RDW Coeff of Micheal 15.9 H, Plt Count 492 H, MPV 9.7, Differential Comment SCANNED, Sodium 138, Potassium 4.0, Chloride 109 H, Carbon Dioxide 27.0, Anion Gap 2 L, BUN 19 H, Creatinine 0.96, Estim Creat Clear Calc 80.83, Est GFR (MDRD) Af Amer 101, Est GFR (MDRD) Non-Af 83, BUN/Creatinine Ratio 19.9, Glucose 105, Calcium 9.1, Triglycerides 94, Cholesterol 174, LDL Cholesterol 110, VLDL Cholesterol 19, HDL Cholesterol 45 Cardiology Labs/Tests 11/21/23 09:01: Hemoglobin A1c 5.2, Iron 27 L, TIBC 437, Iron Saturation 6.2 L, Ferritin 14 L 11/22/23 04:40: WBC 8.1, RBC 4.39 L, Hgb 11.4 L, Hct 37.0 L, MCV 84.3, MCH 26.0 L, MCHC 30.8 L, Plt Count 492 H, MPV 9.7, Sodium 138, Potassium 4.0, Chloride 109 H, Carbon Dioxide 27.0, Anion Gap 2 L, BUN 19 H, Creatinine 0.96, Est GFR (MDRD) Af Amer 101, Est GFR (MDRD) Non-Af 83, BUN/Creatinine Ratio 19.9, Glucose 105, Calcium 9.1, Triglycerides 94, Cholesterol 174, LDL Cholesterol 110, VLDL Cholesterol 19, HDL Cholesterol 45 Rhythm: EKG: ECHO: Stress Test: Cardiac Cath: PCI: CT Surgery: Holter monitor: EPS: PPM: CXR: Chest CT Scan: Radiography Diagnostic Testing: Radiology Impression Echocardiogram 11/21/23 14:06 Interpretation Summary The estimated ejection fraction is 70 %. No evidence for diastolic dysfunction. Ordering Physician: Raz Staples Referring Physician: WISAM MONROE Performed By: Jacinda Fuchs RCS 11/22/23 1448 Cosigner Signature (if applicable): CC: Dr. Wisam Monroe MD Signed Normal [facility] Differential Commenton 11-21 SMEAR COMMENT SCANNED Normal [facility] Comment on above: Result Comment: BONIFACIO CELLS RARE MONOCYTOSIS PRESENT MARKED INCREASE PLATLET ESTIMATE Performed By: #### L 500.2500, L100.0500, L500.4100, L100.4500 #### [facility] [address] [place], [address] Lipid Profileon 11-22-2023 Cholesterol [Mass/Vol] 174 mg/dL Normal 200 [facility] Comment on above: Result Comment: <200 mg/dL Desirable 200-240 mg/dL Borderline >240 mg/dL High Risk Performed By: #### L 500.2500, L100.0500, L500.4100, L100.4500 #### [facility] [address] [place], [address] Cholesterol in HDL [Mass/Vol] 45 mg/dL Normal [facility] Comment on above: Result Comment: The drugs N-Acetylcysteine and Metamizole may falsely depress this assay. Reference Range HDL <40 mg/dL Low HDL Cholesterol HDL >or= 60 mg/dL High HDL Cholesterol Performed By: #### L 500.2500, L100.0500, L500.4100, L100.4500 #### [facility] [address] [place], [address] Cholesterol in LDL [Mass/Vol] 110 mg/dL Normal 0-130 [facility] Comment on above: Performed By: #### L 500.2500, L100.0500, L500.4100, L100.4500 #### [facility] [address] [place], [address] Cholesterol in VLDL [Mass/Vol] 19 mg/dL Normal 5-40 [facility] Comment on above: Performed By: #### L 500.2500, L100.0500, L500.4100, L100.4500 #### [facility] [address] [place], [address] Triglyceride [Mass/Vol] 94 mg/dL Normal [facility] Comment on above: Result Comment: The drugs N-Acetylcysteine and Metamizole may falsely depress this assay. Serum Triglycerides Reference Interval Normal <150 mg/dL Borderline high 150 - 199 mg/dL High 200 - 499 mg/dL Very High > or = 500 mg/dL Performed By: #### L 500.2500, L100.0500, L500.4100, L100.4500 #### [facility] [address] [place], [address] Stress Reporton 11-22-2023 Stress Report [facility] Cardiovascular Services [address] [place] [address] MR#: [id number] Acct: [id number] Name: JUANITA JAY Rep #: [id number] : 1955 68 From: Merlin Mathias MD Primary Care: Dr. Wisam Monroe MD Status: ADM SHARONA Referring Dr: Sex: M C Stress Test Report Date: 11/22/2023 Procedure: Pharmacologic stress nuclear imaging study Indications: Chest pain Consent: Per the patient Procedure: The patient underwent pharmacologic (Regadenoson) evaluation with a peak heart rate of 85 beats per minute (55%predicted maximal heart rate) and a peak blood pressure of 122/80 mmHg. The baseline ECG demonstrated normal sinus rhythm. EKG during lexiscan infusion revealed no significant ischemic changes. EKG post infusion revealed no significant ischemic changes [There were no cardiac dysrhythmias pretest, during pharmacologic infusion, or recovery]. [There was no complaint of chest discomfort during pharmacologic infusion or recovery]. The examination was discontinued secondary to completion of protocol. Impression: 1. Lexiscan stress test test is negative for Lexiscan infusion induced EKG changes of ischemia. 2. Lexiscan stress test test is negative for Lexiscan infusion induced chest pain. 3. Results of the nuclear portion of the test is as below Myocardial perfusion imaging study: Technique: The patient was injected with 13 millicuries of technetium 99m Cardiolite and subsequently rest SPECT Cardiolite nuclear imaging was obtained in the horizontal long, vertical long, and short axis views. The patient underwent pharmacologic [Regadenoson 0.4mg] evaluation. Please see above for details. The patient was injected with 40.2 millicuries of technetium 99m Cardiolite and subsequently stress SPECT Cardiolite nuclear imaging was obtained in the horizontal long, vertical long, and short axis views. A gated Cardiolite study at peak stress was obtained. Interpretation: Rest and stress SPECT Cardiolite nuclear imaging status post realignment, normalization, and attenuation correction demonstrate normal uptake at rest. On the stress images there is mild d ecrease in the radioisotope uptake in the septum, apex and distal anterior wall. These findings are suggestive of ischemia involving these territories. Gated images reveal no significant regional wall motion abnormalities. The reported LVEF is 64%. Impression: 1. There is evidence of ischemia involving the septum, distal anterior wall and apex. 2. Estimated ejection fraction is 64%. This note was generated with Pelikonation software. It may contain incorrect words, spelling, and punctuation that were not noted in checking the note before signing. 11/22/238 Date Merlin Mathias MD CC: Dr. Raz Staples DO; Dr. Wisam Monroe MD; Dr. Nacho Issa MD; Dr. 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 Nacho Issa MD Status : ADM SHARONA Ordering Dr: Raz Staples DO Date: 11/21/23 Location: [facility] Sex: M C Admitted: 11/21/23 Test Reason : Blood Pressure : / mmHG Vent. Rate : 071 BPM Atrial Rate : 071 BPM P-R Int : 158 ms QRS Dur : 080 ms QT Int : 402 ms P-R-T Axes : 042 -30 033 degrees QTc Int : 436 ms Normal sinus rhythm Left axis deviation Abnormal ECG When compared with ECG of 21-NOV-2023 08:55, MANUAL COMPARISON REQUIRED, DATA IS UNCONFIRMED Confirmed by GABE CARRILLO, SHRAVAN ([id number]), editor farm journal YOVANI YANEZ ([id number]) on 11/24/2023 2:32:18 PM Referred By: RANDY Confirmed By:SHRAVAN BERNAL MD 11/24/23 1432 Date Shravan Bernal MD CC: Dr. Raz Staples DO; Dr. Wisam Monroe MD; Dr. Nacho Issa MD Signed Normal [facility] 12 Lead EKG [facility] Cardiovascular Services [address] [place] [address] 12 Lead EKG 11/21/23 0855 MR#: [id number] Acct: [id number] Name: JUANITA JAY Rep #: [id number] : 1955 68 From: Merlin Mathias MD Attending Dr: Dr. Nacho Issa MD Status : ADM SHARONA Ordering Dr: Felice Mcclain MD Date: 11/21/23 Location: [facility] Sex: M C Admitted: 11/21/23 Test Reason : CP Blood Pressure : / mmHG Vent. Rate : 083 BPM Atrial Rate : 083 BPM P-R Int : 140 ms QRS Dur : 080 ms QT Int : 372 ms P-R-T Axes : 028 -34 062 degrees QTc Int : 437 ms Normal sinus rhythm Left axis deviation Nonspecific ST and T wave abnormality Abnormal ECG Confirmed by MARCIO CARRILLO, LISA ([id number]), editor farm journal GUILLERMINA ALEXANDRE ([id number]) on 11/24/2023 9:30:30 AM Referred By: UG Confirmed By:CEASAR MATHIAS MD 11/24/23929 Merlin Mathias MD CC: Dr. Wisam Monroe MD; Dr. Nacho Issa MD; Dr. Felice Mcclain MD Signed Normal [facility] Basic Metabolic Profile (BMP )on 11-21-2023 BUN/CRE 18.3 RATIO Normal 10-20 [facility] Comment on above: Order Comment: 1Y Performed By: #### L 501.5425, L100.0100, L500.2500 ####[facility] [address] [place], [address] CA,Total 9.2 mg/dL Normal 8.5-10.1 [facility] Comment on above: Order Comment: 1Y Performed By: #### L 501.5425, L100.0100, L500.2500 ####[facility] [address] [place], [address] Chloride [Moles/Vol] 112 mmol/L High 98-107 [facility] Comment on above: Order Comment: 1Y Performed By: #### L 501.5425, L100.0100, L500.2500 ####[facility] [address] [place], [address] CO2 [Moles/Vol] 25.0 mmol/L Normal 21.0-32.0 [facility] Comment on above: Order Comment: 1Y Performed By: #### L 501.5425, L100.0100, L500.2500 ####[facility] [address] [place], [address] Creatinine [Mass/Vol] 1.09 mg/dL Normal 0.70-1.30 [facility] Comment on above: Order Comment: 1Y Result Comment: The validity of the calculated GFR GFRAA in patients over 70 years has not been determined. Clinical correlation is essential. Performed By: #### L 501.5425, L100.0100, L500.2500 ####[facility] [address] [place], [address] ECRCL 66.97 ml/min Normal [facility] Comment on above: Order Comment: 1Y Performed By: #### L 501.5425, L100.0100, L500.2500 ####[facility] [address] [place], [address] EST GFR - AA 86 mL/min Normal >60 [facility] Comment on above: Order Comment: 1Y Result Comment: Afri can [place] GFR Calc Performed By: #### L 501.5425, L100.0100, L500.2500 ####[facility] [address] [place], [address] GAP 4 Low 5-15 [facility] Comment on above: Order Comment: 1Y Performed By: #### L 501.5425, L100.0100, L500.2500 ####[facility] [address] [place], [address] GFR/1.73 sq M.predicted among non-blacks MDRD (S/P/Bld) [Vol rate/Area] 71 mL/min/{1.73_m2} Normal >60 [facility] Comment on above: Order Comment: 1Y Result Comment: Non- GFR Calc Performed By: #### L 501.5425, L100.0100, L500.2500 ####[facility] [address] [place], [address] Glucose [Mass/Vol] 117 mg/dL High 74-106 [facility] Comment on above: Order Comment: 1Y Result Comment: Fast ing Glucose result from 100 to 125 mg/dL suggests IMPAIRED HOMEOSTASIS per A.D.A. criteria. Performed By: #### L 501.5425, L100.0100, L500.2500 ####[facility] [address] [place], [address] Potassium [Moles/Vol] 3.9 mmol/L Normal 3.5-5.1 [facility] Comment on above: Order Comment: 1Y Performed By: #### L 501.5425, L100.0100, L500.2500 ####[facility] [address] [place], [address] Sodium [Moles/Vol] 141 mmol/L Normal 136-145 [facility] Comment on above: Order Comment: 1Y Performed By: #### L 501.5425, L100.0100, L500.2500 ####[facility] [address] [place], [address] Urea nitrogen [Mass/Vol] 20 mg/dL High 7-18 [facility] Comment on above: Order Comment: 1Y Performed By: #### L 501.5425, L100.0100, L500.2500 ####[facility] [address] [place], [address] CBC W/Diff, Automatedon 08-0 Absolute Lymph 1.64 X10 3/uL Normal 0.83-4.51 [facility] Comment on above: Performed By: #### L 501.5425, L100.0100, L500.2500 ####[facility] [address] [place], [address] Absolute Neut 6.9 X10 3/uL Normal 2.0-7.7 [facility] Comment on above: Performed By: #### L 501.5425, L100.0100, L500.2500 ####[facility] [address] [place], [address] Basophils/100 WBC (Bld) 0.7 % Normal 0-1 [facility] Comment on above: Performed By: #### L 501.5425, L100.0100, L500.2500 ####[facility] [address] [place], [address] Eosinophils/100 WBC (Bld) 2.5 % Normal 0-5 [facility] Comment on above: Performed By: #### L 501.5425, L100.0100, L500.2500 ####[facility] [address] [place], [address] Erythrocyte distribution width (RBC) [Ratio] 16.0 % High 11.6-14.6 [facility] Comment on above: Performed By: #### L 501.5425, L100.0100, L500.2500 ####[facility] [address] [place], [address] Hematocrit (Bld) [Volume fraction] 38.7 % Low 40-54 [facility] Comment on above: Performed By: #### L 501.5425, L100.0100, L500.2500 ####[facility] [address] [place], [address] Hemoglobin (Bld) [Mass/Vol] 11.5 g/dL Low 13.0-16.5 [facility] Comment on above: Performed By: #### L 501.5425, L100.0100, L500.2500 ####[facility] [address] [place], [address] IG% 0.400 Normal 0.0-0.9 [facility] Comment on above: Result Comment: IG% - Immature Granulocytes (promyelocytes, myelocytes and metamyelocytes) > 1% indicates that a LEFT SHIFT is Present. Performed By: #### L 501.5425, L100.0100, L500.2500 ####[facility] [address] [place], [address] Lymphocytes/100 WBC (Bld) 16.4 % Low 19-41 [facility] Comment on above: Performed By: #### L 501.5425, L100.0100, L500.2500 ####[facility] [address] [place], [place], [address] MCH (RBC) [Entitic mass] 25.1 pg Low 27.0-32.0 [facility] Comment on above: Performed By: #### L 501.5425, L100.0100, L500.2500 ####[facility] [address] [place], [address] MCHC (RBC) [Mass/Vol] 29.7 g/dL Low 32-36 [facility] Comment on above: Performed By: #### L 501.5425, L100.0100, L500.2500 ####[facility] [address] [place], [address] MCV (RBC) [Entitic vol] 84.3 fL Normal 80-94 [facility] Comment on above: Performed By: #### L 501.5425, L100.0100, L500.2500 ####[facility] [address] [place], [address] Monocytes/100 WBC (Bld) 10.9 % High 0-10 [facility] Comment on above: Performed By: #### L 501.5425, L100.0100, L500.2500 ####[facility] [address] [place], [address] Neutrophils/100 WBC (Bld) 69.1 % Normal 47-70 [facility] Comment on above: Performed By: #### L 501.5425, L100.0100, L500.2500 ####[facility] [address] [place], [address] Nucleated RBC (Bld) [#/Vol] 0 10*3/uL Normal 0-5 [facility] Comment on above: Performed By: #### L 501.5425, L100.0100, L500.2500 ####[facility] [address] [place], [address] Platelet mean volume (Bld) [Entitic vol] 10.0 fL Normal 6.2-12.0 [facility] Comment on above: Performed By: #### L 501.5425, L100.0100, L500.2500 ####[facility] [address] [place], [address] Platelets (Bld) [#/Vol] 522 10*3/uL High 150-450 [facility] Comment on above: Performed By: #### L 501.5425, L100.0100, L500.2500 ####[facility] [address] [place], [address] RBC (Bld) [#/Vol] 4.59 10*6/uL Low 4.6-6.2 [facility] Comment on above: Performed By: #### L 501.5425, L100.0100, L500.2500 ####[facility] [address] [place], [address] RDW SD 49.2 fl High 35.1-43.9 [facility] Comment on above: Performed By: #### L 501.5425, L100.0100, L500.2500 ####[facility] [address] [place], [address] WBC (Bld) [#/Vol] 10.0 10*3/uL Normal 4.4-11.0 [facility] Comment on above: Performed By: #### L 501.5425, L100.0100, L500.2500 ####[facility] [address] [place], [address] Chest 1 View (Portable)on Chest 1 View (Portable) [facility] [address] [place] [address] Chest 1 View (Portable) MR#: [id number] Acct: [id number] Name: JUANITA JAY Rep #: [id number] : 1955 M 68 From: Marco rodney MD PCP: Dr. Wisam Monroe MD Status: [facility] Study: Chest 1 View (Portable) Date of Exam: 11/21/23 Exam# [id number] Ordering Dr: Felice Mcclain MD [id number] INDICATION: chest pain EXAMINATION/TECHNIQU E: X-RAY - XR Chest 1 View COMPARISON: No relevant prior comparison study available ____ FINDINGS: LINES/DEVICES: None. LUNGS: The lungs are well expanded. No consolidation, edema or effusion. No pneumothorax. MEDIASTINUM AND CARDIOVASCULAR STRUCTURES: Cardiac silhouette not enlarged. Central airways and mediastinal contour are unremarkable. BONES AND SOFT TISSUES: No acute abnormality. RAD/Chest 1 View (Portable) IMPRESSION: No acute pulmonary finding. Electronically Signed: Marco Mohr MD at 9:30 EDT , CC: Dr. Wisam Monroe MD; Dr. Felice Mcclain MD Wheel Mill Operator: Signed Normal [facility] Echo Completeon 11-21-2023 Echo Complete [facility] [place] [address] [place] [address] Echo Complete 11/21/23 1543 MR#: [id number] Acct: [id number] Name: JUANITA JAY Rep #: [id number] : 1955 68 From: Merlin Mathias MD Attending Dr: Dr. Raz Staples, DO Status : ADM SHARONA Ordering Dr: Raz Staples DO Date: 11/21/23 Location: [facility] Sex: M C Admitted: 11/21/23 Reason For Study: CHEST PAIN Procedure This was a 2D Doppler, Color Flow transthoracic echocardiogram. The study was technically difficult. Definity deferred due to off axis windows. Exam performed portable in patient room. Left Ventricle Normal LV size. The estimated ejection fraction is 70 %. No evidence for diastolic dysfunction. No regional wall motion abnormalities noted. Right Ventricle Normal RV size. Normal systolic function. Atria The left and right atria are normal. No doppler evidence for ASD. Mitral Valve There is no mitral valve stenosis. No mitral valve insufficiency. Tricuspid Valve There is no tricuspid stenosis. No tricuspid valve insufficiency. Unable to estimate RV systolic pressure due to inadequate jet, pulmonary artery pressure probably normal. Aortic Valve Trisinus/trileaflet aortic valve. There is no aortic stenosis. No aortic valve insufficiency. Pulmonic Valve There is no pulmonic valvular stenosis. No pulmonic valve insufficiency. Great Vessels Normal aortic root. Pericardium/Pleural No pericardial effusion. MMode/2D Measurements Calculations LVIDd: 4.7 cm IVSd: 1.1 cm Ao root diam: 4.4 cm LVIDs: 3.0 cm LVPWd: 1.3 cm FS: 34.9 % _ LAV(MOD-sp4): 27.4 ml LA A4 area: 11.9 cm2 LA dimension(2D): 3.7 cm _ RA A4 area: 20.9 cm2 Time Measurements MV dec time: 0.25 sec Doppler Measurements Calculations MV E max tavon: 60.2 cm/sec Lat Peak E' Tavon: 9.2 cm/sec Med Peak E' Tavon: 8.2 cm/sec MV A max tavon: 69.0 cm/sec E/E' lat: 6.6 E/E' med: 7.4 MV E/A: 0.87 _ MV V2 max: 81.5 cm/sec MV dec slope: 241.2 cm/sec2 Ao V2 max: 79.0 cm/sec MV max P.7 mmHg Ao max P.5 mmHg MV V2 mean: 43.7 cm/sec Ao V2 mean: 45.8 cm/sec MV mean P.94 mmHg Ao mean P.0 mmHg MV V2 VTI: 24.2 cm Ao V2 VTI: 16.4 cm AV (velocity ratio): 1.1 _ LV V1 max: 88.5 cm/sec PA V2 max: 71.4 cm/sec LV V1 max P.1 mmHg PA V2 mean: 52.2 cm/sec LV V1 mean P.4 mmHg LV V1 mean: 54.4 cm/sec LV V1 VTI: 18.4 cm ECHO/Echo Complete Interpretation Summary The estimated ejection fraction is 70 %. No evidence for diastolic dysfunction. Ordering Physician: Raz Staples Referring Physician: WISAM MONROE Performed By: Jacinda Fuchs RCS 11/21/23 170 Date Merlin Mathias MD CC: Dr. Raz Staples DO; Dr. Wisam Monroe MD Date Dictated: 11/21/23 1543 Date Transcribed: 11/21/231703 Wheel Mill Operator: Christina De Guzman [facility] Emergency Department Summary on 11-21-2023 Emergency Department Summary [facility] Medical Records Department [address] [place] [address] Emergency Department Summary 11/21/23 MR#: [id number] Acct: [id number] Name: JUANITA JAY Rep #: [id number] : 1955 68 From: Felice Mcclain MD PCP: Dr. Wisam Monroe MD Status:ADM SHARONA Location: [address] History of Present Illness Chief Complaint: Chest Pain Detail of Chief Complaint: Chest pressure yesterday and today Informant: patient and spouse/S.O. Onset/Context/Timing Onset: Today and Yesterday Activity at onset: sudden Timing: Continuous (Today) and Intermittent (Yesterday) Quality: Positive for Pressure Location: Left Chest (Radiating to left shoulder with numbness of left upper extremity) Current Severity: Mild Maximum Severity: Severe Worsened By: Nothing Relieved By: Nothing Associated Symptoms: Positive for Nausea, Diaphoresis, Dyspnea (Today), Cough (Nonproductive. Former smoker) and - (Symptoms today not yesterday); Negative for Vomiting, Fever, Lightheadedness, Acid Reflux or Palpitations Narrative Narrative: Patient is a 68-year-old male. He has a history of MS and convulsions. He presents because of chest pressure that is worse today. Episode occurred yesterday after arising from bed walking down steps in their split-level. He states yesterday it was mild. There is no associated symptoms. Today the pain is much more severe and has persisted since onset. Today's episode was associate with nausea, diaphoresis and dyspnea. He does have history of hiatal hernia. This is not like his hiatal hernia pain. He also had some problems with balance which he attributed to the fact that he has MS. He has no known history of coronary artery disease. He denies black or maroon-colored stool. He is still having discomfort but is much less. Patient denies headache, visual, ocular auditory symptoms. Patient denies abdominal pain, vomiting or diarrhea. He denies black or maroon-colored stool. Patient denies history of VTE. He denies leg pain, swelling or discoloration. He has no risk factors for VTE. Prior Similar Symptoms: No Recent Illness/Hospitalizat ion: No CVD Risk Factors: Negative for Hypertension, Diabetes, Hypercholesterolemia , Family History 1' or Smoking (Patient has not smoked in approximately 20 years.) PE Risk Factors: Negative for Recent Travel/Surgery, Recent Immobilization, Prior DVT or PE, Cancer or OCP + Smoking + >/=35 TAD Risk Factors: Negative for Marfan's Syndrome, Hypertension or Family History PFSH PFSH Medical History (Updated 11/21/23 @ 14:[address] Felice Mcclain MD) Seizures Multiple sclerosis Allergy/AdvReac Type Severity Reaction Status Date / Time No Known Allergies Allergy Verified 11/21/23 08:56 Social History (Updated 11/21/23 @ 10:[address] Felice Mcclain MD) household members: spouse Smoking Status: Former smoker substance use type: does not use ROS ROS ED Constitutional Constitutional ED: Denies chills, fever(s), subjective, sweats or weight loss Eyes Eyes: Reports none ENT ENT ED: Denies ear pain, rhinorrhea or sore throat Cardiovascular Cardiovascular: Reports as per HPI; Denies orthopnea or paroxysmal nocturnal dyspnea Respiratory/Chest Respiratory/Chest: Reports cough and dyspnea; Denies dyspnea on exertion, orthopnea or paroxysmal nocturnal dyspnea Gastrointestinal Gastrointestinal: Reports nausea; Denies abdominal pain, constipation, diarrhea, melena or vomiting Genitourinary Genitourinary ED: Denies dysuria, hematuria or urinary frequency Musculoskeletal Musculoskeletal: Denies arthralgias, back pain, myalgias or neck pain Integumentary Denies rash Neurologic Neurologic: Reports paresthesias LUE; Denies headache(s) Psychiatric Psychiatric: Denies anxiety or depression Endocrine Endocrinology: Denies cold intolerance or heat intolerance Hematologic/Lymphati c Hematologic/Lymphati c: Denies easy bleeding or easy bruising EXAM Physical Exam Const Vital Signs: 11/21/23 08:53 11/21/23 08:59 11/21/23 09:07 Temperature 97.6 F L Temperature Source Oral Pulse Rate 82 Respiratory Rate 16 Blood Pressure 141/85 H Blood Pressure Mean 103 Pulse Ox 98 98 Oxygen Delivery Method Room Air Room Air 11/21/23 09:53 11/21/23 11:00 11/21/23 12:00 Temperature Temperature Source Pulse Rate 78 81 80 Respiratory Rate 18 18 20 H Blood Pressure 133/76 H 127/86 H 130/84 H Blood Pressure Mean 95 99 99 Pulse Ox 98 98 97 Oxygen Delivery Method Room Air Room Air Room Air 11/21/23 13:00 11/21/23 13:50 11/21/23 13:57 Temperature 98 F Temperature Source Pulse Rate 68 91 79 Respiratory Rate 17 17 18 Blood Pressure 141/78 H 141/85 H 139/80 H Blood Pressure Mean 99 103 99 Pulse Ox 97 97 97 Oxygen Delivery Method Room Air Ro (more content not included)... Normal [facility] Ferritinon 11-21-2023 Ferritin [Mass/Vol] 14 ng/mL Low 26-388 [facility] Comment on above: Order Comment: Has P atient had X-rays with Contrast this admission? NN Performed By: #### L 503.6030, L503.0105, L506.0250, L503.6550 ####[facility] [address] [place], [address] Folates, (Folic Acid)on FOLATES 5.60 ng/mL Normal 3.1-55.4 [facility] Comment on above: Order Comment: Has P atient had X-rays with Contrast this admission? NN Performed By: #### L 503.6030, L503.0105, L506.0250, L503.6550 ####[facility] [address] [place], [address] H AND P Exam - Hospitaliston 11-21-2023 H&P Exam - Hospitalist [facility] Medical Records Department [address] [place] [address] H P Exam - Hospitalist 11/21/23 1402 MR#: [id number] Acct: [id number] Name: JUANITA JAY Rep #: [id number] : 1955 68 From: Raz Staples DO PCP: Dr. Wisam Monroe MD Status:ADM SHARONA Location: [place] [address] HPI - General General Date of Admission: 11/21/23 Date of Service: 11/21/23 Chief Complaint: Chest pain HPI Narrative JUANITA JAY, is a 68 M who presented to [facility] ED on 11/21/2023 with chest pain. Patient has history of MS diagnosed in 2018, follows with neurology at [facility]. Notes that his primary MS symptom is difficulty with balance but he otherwise has minimal symptoms due to his MS. He otherwise has minimal past medical history. Stated that he had an episode of chest pressure yesterday that occurred after waking up and walking down the steps in his split-level home. The pain subsided fairly quickly and he had no associated symptoms. Today, he had pain in the left chest along with left arm pain that was more severe and more persistent than yesterday, so he came in for further evaluation. He did report some nausea, diaphoresis and dyspnea with today's episode. In the ED, was noted to be hemodynamically stable on room air. EKG showed normal sinus rhythm, no ST changes. Troponins were negative x 2. Lab workup showed a mild anemia with hemoglobin 11.5, down from 14 back in 2021 (last known value), but was otherwise unremarkable. Chest x-ray was unremarkable. Given his concerning symptoms and no prior cardiac workup, hospitalist was contacted for admission. I saw patient at bedside in the ED. Patient was sitting up comfortably in bed, conversing normally, in no acute distress. He reported that the chest pain had completely subsided by this time. He denied any symptoms at this time. He was concerned by these episodes and unsure of what else could be causing the pain if not heart related. He denies any recent excessive physical activity or known muscle strains. Patient lives at home with his and has good functional status. No other acute concerns at this time. [facility] Medical History (Updated 11/21/23 @ 22:[address] Raz Staples, DO) Seizures Multiple sclerosis Home Medications ???Medication ???Instructions ???Recorded ???Last Taken ???Type citalopram 40 mg tablet 40 mg PO DAILY depression 11/21/23 11/21/23 History dimethyl fumarate 240 mg 240 mg PO BID ms 11/21/23 11/21/23 History capsule,delayed release zonisamide 100 mg capsule 200 mg PO .am seizures 11/21/23 11/21/23 History zonisamide 100 mg capsule 300 mg PO QHS seizures 11/21/23 Unknown History Allergy/AdvReac Type Severity Reaction Status Date / Time No Known Allergies Allergy Verified 11/21/23 08:56 Social History (Updated 11/21/23 @ 15:16 by Mary Hughes) household members: spouse Smoking Status: Former smoker substance use type: does not use ROS Constitutional Constitutional: Denies chills, fatigue, fever(s) or weakness Eyes Eyes: Denies change in vision Cardiovascular Cardiovascular: Denies chest pain, edema, lightheadedness, palpitations or rapid heart rate Respiratory/Chest Respiratory/Chest: Denies shortness of breath at rest, shortness of breath with exertion or wheezing Gastrointestinal Gastrointestinal: Denies abdominal pain Musculoskeletal Musculoskeletal: Denies arthralgias or myalgias Neurologic Neurologic: Denies dizziness, focal weakness or headache(s) Vital Signs Vital Signs Vital Signs: 11/21/23 08:53 11/21/23 08:59 11/21/23 09:07 Temperature 97.6 F L Temperature Source Oral Pulse Rate 82 Respiratory Rate 16 Blood Pressure 141/85 H Blood Pressure Mean 103 Pulse Ox 98 98 Oxygen Delivery Method Room Air Room Air 11/21/23 09:53 11/21/23 11:00 11/21/23 12:00 Temperature Temperature Source Pulse Rate 78 81 80 Respiratory Rate 18 18 20 H Blood Pressure 133/76 H 127/86 H 130/84 H Blood Pressure Mean 95 99 99 Pulse Ox 98 98 97 Oxygen Delivery Method Room Air Room Air Room Air 11/21/23 13:00 11/21/23 13:50 11/21/23 13:57 Temperature 98 F Temperature Source Pulse Rate 68 91 79 Respiratory Rate 17 17 18 Blood Pressure 141/78 H 141/85 H 139/80 H Blood Pressure Mean 99 103 99 Pulse Ox 97 97 97 Oxygen Delivery Method Room Air Room Air Weight Weight: 85.8 kg Body Mass Index (BMI) 27.1 Physical Exam Const alert, oriented x3, no apparent distress, average body habitus, healthy appearing and well nourished Constitutional Narrative: Pleasant elderly male, sitting up comfortably in bed, conversing normally, in no acute distress. General Appearance: cooperative, comfortable, well kempt and well developed HEENT (more content not included)... Normal [facility] Hemoglobin A1con 11-21-2023 HbA1c (Bld) [Mass fraction] 5.2 % Normal 3.8-5.6 [facility] Comment on above: Result Comment: Norm al < 5.7 % Prediabetic 5.7 - 6.4 % Diabetic >or= 6.5 % Please note range changes. Performed By: #### L 501.9946, L501.9520 #### [facility] [address] [place], [address] Iron+Iron Binding Capacityon 11-21-2023 Iron [Mass/Vol] 27 ug/dL Low 65-175 [facility] Comment on above: Order Comment: Has P atient had X-rays with Contrast this admission? NN Performed By: #### L 503.6030, L503.0105, L506.0250, L503.6550 ####[facility] [address] [place], [address] IRON SATURATION 6.2 Low 15.0-55.0 [facility] Comment on above: Order Comment: Has Sadiq yoder had X-rays with Contrast this admission? NN Performed By: #### L 503.6030, L503.0105, L506.0250, L503.6550 ####[facility] [address] [place], [address] TIBC 437 ug/dL Normal 250-450 [facility] Comment on above: Order Comment: Has Sadiq yoder had X-rays with Contrast this admission? NN Performed By: #### L 503.6030, L503.0105, L506.0250, L503.6550 ####[facility] [address] [place], [address] L501.4020on 11-21-2023 TROPONIN-I HS 10 pg/mL Normal 3.0-78.0 [facility] Comment on above: Result Comment: Plea se Note: New Test Units and Gender Specific Reference Ranges. For more information see Policy Stat Procedure [place] High Sensitivity Troponin (TNIH) and attachments. Performed By: #### L 501.4020 ####[facility] [address] [place], [address] L501.5425on 11-21-2023 TROPONIN-I HS 7 pg/mL Normal 3.0-78.0 [facility] Comment on above: Order Comment: 1Y Result Comment: Plea se Note: New Test Units and Gender Specific Reference Ranges. For more information see Policy Stat Procedure [place] High Sensitivity Troponin (TNIH) and attachments. Performed By: #### L 501.5425, L100.0100, L500.2500 ####[facility] [address] [place], [address] Thyroid Stim Hormone (TSH)on 11-21-2023 TSH 1.31 uIU/mL Normal 0.358-3.74 [facility] Comment on above: Performed By: #### L 501.9985, L501.9520 ####[facility] [address] [place], [address] BRAIN [facility] Brain Enhancing Lesions None C [facility] Brain Interval Improvement None [facility] Brain New T2 Lesions None Site [facility] Brain Other Significant MRI Findings None. [facility] Brain Parenchymal Volume Loss Moderate [facility] Brain T2 [place] of Disease Moderate [facility] MR Brain WO and W contrast I Von 08-05-2023 IMPRESSION: Multiple intracranial white matter lesions compatible with multiple sclerosis. No new T2 lesions and no new enhancing lesions. Moderate parenchymal volume loss. Other Significant Intracranial Findings: None Wheel Mill Operator: PSCB Transcribe Date/Time: Aug 05 2023 10:42A Dictated by : TAWANDA MEHTA MD This examination was interpreted and the report reviewed and electronically signed by: TAWANDA MEHTA MD on Aug 05 2023 10:46AM [facility] DIVISION OF RADIOLOGY * * *Final Report* * * DATE OF EXAM: Aug 05 2023 10:30AM [facility] 0295 - MRI BRAIN WO/W IVCON / PROCEDURE REASON: Multiple sclerosis (HCC) * * * * Physician Interpretation * * * * MRI BRAIN WO/W IVCON HISTORY: Multiple sclerosis (HCC) TECHNIQUE: Brain MRI with demyelinating disease protocol with and without IV gadolinium. MQ: [id number]_2 Contrast: 18 mL Dotarem IV COMPARISON: 07/23/2021 and prior RESULT: MR BRAIN: Parenchymal Findings: There are multiple foci of hyperintensity on FLAIR and T2 within the white matter, compatible with the clinical diagnosis of multiple sclerosis. Foci of T1 hypointensity indicating axonal loss bilaterally. New T2 Lesions: None Site(s) of New/Larger T2 Lesion(s): Not applicable Interval Improvement: None. New Enhancing Lesions: None T2 [place] of Disease: Moderate. Parenchymal Volume Loss: Moderate. Other Significant Findings: None. *Note:? The definition of new T2 Lesions includes both new and enlarging plaques on T2-weighted FLAIR images (new lesions greater than or equal to 5mm3 or an increase in diameter of an existing lesion by greater than or equal to 2mm). DIVISION OF RADIOLOGY Provider, [facility] [place] - 08/05/2023 * * *Final Report* * * DATE OF EXAM: Aug 05 2023 10:30AM [facility] 0295 - MRI BRAIN WO/W IVCON / PROCEDURE REASON: Multiple sclerosis (HCC) * * * * Physician Interpretation * * * * MRI BRAIN WO/W IVCON HISTORY: Multiple sclerosis (HCC) TECHNIQUE: Brain MRI with demyelinating disease protocol with and without IV gadolinium. MQ: [id number]_2 Contrast: 18 mL Dotarem IV COMPARISON: 07/23/2021 and prior RESULT: MR BRAIN: Parenchymal Findings: There are multiple foci of hyperintensity on FLAIR and T2 within the white matter, compatible with the clinical diagnosis of multiple sclerosis. Foci of T1 hypointensity indicating axonal loss bilaterally. New T2 Lesions: None Site(s) of New/Larger T2 Lesion(s): Not applicable Interval Improvement: None. New Enhancing Lesions: None T2 [place] of Disease: Moderate. Parenchymal Volume Loss: Moderate. Other Significant Findings: None. *Note:? The definition of new T2 Lesions includes both new and enlarging plaques on T2-weighted FLAIR images (new lesions greater than or equal to 5mm3 or an increase in diameter of an existing lesion by greater than or equal to 2mm). IMPRESSION IMPRESSION: Multiple intracranial white matter lesions compatible with multiple sclerosis. No new T2 lesions and no new enhancing lesions. Moderate parenchymal volume loss. Other Significant Intracranial Findings: None Wheel Mill Operator: CLARIBEL Transcribe Date/Time: Aug 05 2023 10:42A Dictated by : TAWANDA MEHTA MD This examination was interpreted and the report reviewed and electronically signed by: TAWANDA MEHTA MD on Aug 05 2023 10:46AM EST [facility] MR Brain WO and W contrast I VOrdered By: [facility] Provider on 08-05-2023 [facility] No Panel Informationon 08-04 Radiology Study observation (narrative) [facility] ED Nursing Noteon 02-15-2023 ED Nursing Note Patient is here for laceration above left eye. Injury occurred 1 hour prior to arrival when he tripped over a curb. Abrasion noted to left knee. He denies LOC. He ambulates with a cane. He is here today with his Man[place]. He has headache 1/10 pain. He is not on blood thinners. He is requesting sutures. Call light within reach. A&O x3. Normal [facility] ED Provider Noteon 3 ED Provider Note EMERGENCY DEPARTMENT ENCOUNTER Pt Name: Juanita Jay Birthdate 1955 Date of evaluation: 02/15/2023 ED Provider: Khoa Goldberg MD CHIEF COMPLAINT Chief Complaint Patient presents with Facial Laceration Left eyebrow HISTORY OF PRESENT ILLNESS (Location/Symptom, Timing/Onset, Context/Setting, Quality, Duration, Modifying Factors, Severity) Note limiting factors. I wore appropriate PPE for the entirety of this encounter. HPI Juanita Jay is a 67 y.o. who presents to the emergency department with chief complaint of patient with a history of multiple sclerosis not on anticoagulation was walking downtown when he tripped on a curb and fell forward try to catch himself but does have an abrasion laceration to his left supraorbital area and abrasion to his left knee. He had no loss of consciousness. No focal neurologic symptoms no nausea vomiting diarrhea. No neck back chest abdomen or pelvic pain. States his tetanus is up-to-date. Nursing Notes were reviewed. Limitations to history: None Outside historians: Significant other REVIEW OF SYSTEMS Review of Systems Constitutional: Negative for chills and fever. HENT: Negative for ear pain and sore throat. Eyes: Negative for pain and visual disturbance. Respiratory: Negative for cough and shortness of breath. Cardiovascular: Negative for chest pain and palpitations. Gastrointestinal: Negative for abdominal pain and vomiting. Genitourinary: Negative for dysuria and hematuria. Musculoskeletal: Positive for myalgias. Negative for arthralgias, back pain and gait problem. Skin: Positive for wound. Negative for color change and rash. Neurological: Negative for seizures and syncope. All other systems reviewed and are negative. Pertinent positives and negatives as per HPI. PAST MEDICAL HISTORY Past Medical History: Diagnosis Date MS (multiple sclerosis) ([facility]) SURGICAL HISTORY History reviewed. No pertinent surgical history. CURRENT MEDICATIONS Previous Medications No medications on file ALLERGIES Patient has no known allergies. FAMILY HISTORY No family history on file. SOCIAL HISTORY Social History Socioeconomic History Marital status: Tobacco Use Smoking status: Former Types: Cigarettes Smokeless tobacco: Never Substance and Sexual Activity Alcohol use: Yes Comment: rarely socially Drug use: Never SCREENINGS PHYSICAL EXAM ED Triage Vitals [02/15/23 1535] Temp Heart Rate Resp BP 36.7 ?C (98.1 ?F) 96 18 (!) 148/88 SpO2 Temp Source Heart Rate Source Patient Position 97 % Oral Monitor Sitting BP Location FiO2 (%) Right arm -- Physical Exam Vitals and nursing note reviewed. Constitutional: Appearance: Normal appearance. HENT: Head: Normocephalic and atraumatic. Nose: Nose normal. No rhinorrhea. Mouth/Throat: Mouth: Mucous membranes are moist. Pharynx: No posterior oropharyngeal erythema. Eyes: General: Right eye: No discharge. Left eye: No discharge. Extraocular Movements: Extraocular movements intact. Conjunctiva/sclera: Conjunctivae normal. Pupils: Pupils are equal, round, and reactive to light. Cardiovascular: Rate and Rhythm: Normal rate. Heart sounds: No murmur heard. Pulmonary: Effort: No respiratory distress. Breath sounds: Normal breath sounds. No wheezing. Abdominal: General: Abdomen is flat. Palpations: Abdomen is soft. Tenderness: There is no abdominal tenderness. There is no rebound. Musculoskeletal: General: Normal range of motion. Cervical back: Normal range of motion and neck supple. Right lower leg: No edema. Left lower leg: No edema. Skin: General: Skin is warm and dry. Capillary Refill: Capillary refill takes less than 2 seconds. Findings: No rash. Comments: There is a rugged 2.8 cm laceration in the left eyebrow. There is no orbital fat. Does not involve the lid margin. Pupils equal round react light neck segments are intact Neurological: General: No focal deficit present. Mental Status: He is alert and oriented to person, place, and time. Cranial Nerves: No cranial nerve deficit. Sensory: No sensory deficit. Motor: No weakness. Gait: Gait normal. Psychiatric: Mood and Affect: Mood normal. Behavior: Behavior normal. DIAGNOSTIC RESULTS Procedures/EKG: EKG was reviewed by myself. Physician EKG interpretation can be found in [facility] RADIOLOGY (Per Emergency Physician): Interpretation per the Radiologist below, if available at the time of this note: No orders to display ED BEDSIDE ULTRASOUND: Performed by ED Physician - none LABS: Labs Reviewed - No data to display All other labs were within normal range or not returned as of this dictation. EMERGENCY DEPARTMENT COURSE and DIFFERENTIAL DIAGNOSIS/MDM: Vitals: Vitals: 11/04/23 1535 BP: (!) 148/88 BP Location: Right arm Patient Position: Sitting Pulse: 96 Resp: 18 Temp: 36.7 ?C (98.1 ?F) TempSrc: Oral S (more content not included)... Normal [facility] No Panel Informationon 02-15 Khoa Goldberg MD 02/15/2023 7:16 PM Laceration Repair Performed by: Khoa Goldberg MD Authorized by: Khoa Goldberg MD Consent: Consent obtained: Verbal Consent given by: Patient Risks discussed: Poor cosmetic result, poor wound healing, pain and infection [place] protocol: Procedure explained and questions answered to patient or proxy's satisfaction: yes Patient identity confirmed: Verbally with patient Anesthesia: Anesthesia method: Local infiltration Local anesthetic: Lidocaine 1% w/o epi Laceration details: Location: Face Face location: L upper eyelid Length (cm): 2.8 Pre-procedure details: Preparation: Patient was prepped and draped in usual sterile fashion Exploration: Limited defect created (wound extended): no Hemostasis achieved with: Direct pressure Wound exploration: wound explored through full range of motion and entire depth of wound visualized Wound extent: no foreign bodies/material noted, no nerve damage noted, no tendon damage noted, no underlying fracture noted and no vascular damage noted Contaminated: no Treatment: Area cleansed with: Chlorhexidine Amount of cleaning: Standard Irrigation solution: Sterile saline Irrigation volume: 60 Irrigation method: Pressure wash Visualized foreign bodies/material removed: no Debridement: None Skin repair: Repair method: Sutures Suture size: 5-0 Suture material: Fast-absorbing gut Suture technique: Simple interrupted Number of sutures: 7 Approximation: Approximation: Close Repair type: Repair type: Simple Post-procedure details: Dressing: Antibiotic ointment Procedure completion: Tolerated well, no immediate complications [facility] Khoa Goldberg MD 02/15/2023 7:16 PM Laceration Repair Performed by: Khoa Goldberg MD Authorized by: Khoa Goldberg MD Consent: Consent obtained: Verbal Risks discussed: Infection, poor cosmetic result and poor wound healing Alternatives discussed: Delayed treatment [place] protocol: Procedure explained and questions answered to patient or proxy's satisfaction: yes Patient identity confirmed: Verbally with patient Laceration details: Location: Face Face location: L upper eyelid Length (cm): 0.8 Pre-procedure details: Preparation: Patient was prepped and draped in usual sterile fashion Exploration: Contaminated: no Treatment: Area cleansed with: Chlorhexidine Irrigation solution: Sterile saline Irrigation volume: 30 Irrigation method: Pressure wash Visualized foreign bodies/material removed: no Debridement: None Skin repair: Repair method: Tissue adhesive Approximation: Approximation: Close Repair type: Repair type: Simple Post-procedure details: Procedure completion: Tolerated well, no immediate complications [facility] Absolute lymphocyte counton 01-28-2022 Lymphocytes Auto (Unsp spec) [#/Vol] 1.50 10*3/uL 0.83-4.51 [facility] Work Phone: Basophil percentageon 2021 Basophils/100 WBC (Bld) 0.5 % 0-1 [facility] Work Phone: Bilirubin [Mass/Vol] 0.40 mg/dL 0.20-1.00 [facility] Work Phone: [phone] Comment on above: For patients on eltr ombopag therapy, use of Dimension [place] TBIL is not recommended. Chloride [Moles/Vol] 110 mmol/L 98-107 [facility] Work Phone: Eosinophils/100 WBC (Bld) 1.7 % 0-5 [facility] Work Phone: Glucose [Mass/Vol] 96 mg/dL 74-106 [facility] Work Phone: Neutrophils (Bld) [#/Vol] 11.6 10*3/uL 2.0-7.7 [facility] Work Phone: Neutrophils/100 WBC (Bld) 77.5 % 47-70 [facility] Work Phone: Potassium [Moles/Vol] 4.0 mmol/L 3.5-5.1 [facility] Work Phone: Protein [Mass/Vol] 7.4 g/dL 6.4-8.2 [facility] Work Phone: Sodium [Moles/Vol] 142 mmol/L 136-145 [facility] Work Phone: WBC (Bld) [#/Vol] 14.9 10*3/uL 4.4-11.0 [facility] Work Phone: Bilirubin Test strip Ql (U)o n 01-28-2022 Bilirubin Ql (U) Negative Negative [facility] Work Phone: Blood erythrocytes count (nu mber/volume)on 01-28-2022 RBC (Bld) [#/Vol] 4.85 10*6/uL 4.6-6.2 [facility] Work Phone: Blood hemoglobin measurement (mass/volume)on 01-28-2022 Hemoglobin (Bld) [Mass/Vol] 14.8 g/dL 13.0-16.5 [facility] Work Phone: Blood lymphocytes/100 leukoc yteson 01-28-2022 Lymphocytes/100 WBC (Bld) 10.0 % 19-41 [facility] Work Phone: Blood monocytes/100 leukocyt eson 01-28-2022 Monocytes/100 WBC (Bld) 9.8 % 0-10 [facility] Work Phone: Blood platelet mean volumeon 01-28-2022 Platelet mean volume (Bld) [Entitic vol] 10.8 fL 6.2-12.0 [facility] Work Phone: Determination of erythrocyte mean corpuscular volume (MCV)on 01-28-2022 MCV (RBC) [Entitic vol] 94.0 fL 80-94 [facility] Work Phone: Hematocrit Auto (Bld) [Volum e fraction]on 01-28-2022 Hematocrit (Bld) [Volume fraction] 45.6 % 40-54 [facility] Work Phone: Ketones Test strip Ql (U)on 01-28-2022 Ketones Ql (U) Negative Negative [facility] Work Phone: Laboratory - Chemistry and C hemistry - challengeon 01-28-2022 ALP [Catalytic activity/Vol] 91 U/L 45-117 [facility] Work Phone: [phone] ALT [Catalytic activity/Vol] 26 U/L 16-61 [facility] Work Phone: CK [Catalytic activity/Vol] 78 U/L 39-308 [facility] Work Phone: CO2 [Moles/Vol] 24.0 mmol/L 21.0-32.0 [facility] Work Phone: [phone] Globulin (S) [Mass/Vol] 3.6 g/dL 2.2-4.2 [facility] Work Phone: Urea nitrogen/Creatinine [Mass ratio] 22.2 mg/mg 10-20 [facility] Work Phone: Laboratory - Hematology and Cell countson 01-28-2022 Erythrocyte distribution width (RBC) [Entitic vol] 53.2 fL 35.1-43.9 [facility] Work Phone: Erythrocyte distribution width (RBC) [Ratio] 15.3 % 11.6-14.6 [facility] Work Phone: Immature granulocytes/100 WBC (Bld) 0.500 % 0.0-0.9 [facility] Work Phone: Comment on above: IG% - Immature Granu locytes (promyelocytes, myelocytes and metamyelocytes) > 1% indicates that a LEFT SHIFT is Present. MCH (RBC) [Entitic mass] 30.5 pg 27.0-32.0 [facility] Work Phone: Nucleated RBC/100 WBC (Bld) [Ratio] 0 % 0-5 [facility] Work Phone: MCHC Auto (RBC) [Mass/Vol]on 01-28-2022 MCHC (RBC) [Mass/Vol] 32.5 g/dL 32-36 [facility] Work Phone: Nitrite Test strip Ql (U)on 01-28-2022 Nitrite Ql (U) Negative Negative [facility] Work Phone: No Panel Informationon 01-28 Estimated GFR (MDRD) Amer 97 mL/min >60 [facility] Work Phone: Comment on above: GFR Calc Estimated GFR (MDRD) Non-Af Amer 80 mL/min >60 [facility] Work Phone: Comment on above: Non- GFR Calc Platelets bldon 01-28-2022 Platelets (Bld) [#/Vol] 414 10*3/uL 150-450 [facility] Work Phone: Protein Test strip Ql (U)on 01-28-2022 Protein Ql (U) 15 mg/dl Negative [facility] Work Phone: Serum or plasma albumin naila urement (mass/volume)on 01-28-2022 Albumin [Mass/Vol] 3.8 g/dL 3.2-5.0 [facility] Work Phone: Serum or plasma albumin/glob ulin mass ratioon 01-28-2022 Albumin/Globulin [Mass ratio] 1.1 {ratio} 0.9-2.4 [facility] Work Phone: Serum or plasma calcium naila urement (mass/volume)on 01-28-2022 Calcium [Mass/Vol] 9.4 mg/dL 8.5-10.1 [facility] Work Phone: Serum or plasma creatinine m easurement (mass/volume)on 01-28-2022 Creatinine [Mass/Vol] 0.99 mg/dL 0.70-1.30 [facility] Work Phone: Comment on above: The validity of the calculated GFR & GFRAA in patients over 70 years has not been determined. Clinical correlation is essential. Serum or plasma urea nitroge n measurement (mass/volume)on 01-28-2022 Urea nitrogen [Mass/Vol] 22 mg/dL 7-18 [facility] Work Phone: Thin prep Papanicolaou smear with manual screeningon 01-28-2022 Thin prep Papanicolaou smear with manual screening 22 U/L 15-37 [facility] Work Phone: Thin prep Papanicolaou smear with manual screening 8 5-15 [facility] Work Phone: Urine blood detectionon 01-12 RBC Ql (U) 10 /ul Negative [facility] Work Phone: Urine clarityon 01-28-2022 Clarity (U) Clear Clear [facility] Work Phone: Urine color determinationon 01-28-2022 Color (U) Yellow Yellow [facility] Work Phone: Urine creatinine measurement (mass/volume)on 01-28-2022 Creatinine (U) [Mass/Vol] 184.00 mg/dL NO RANGE EST. [facility] Work Phone: Urine glucose detectionon Glucose Ql (U) Normal mg/dl Normal [facility] Work Phone: Urine leukocyte esterase det ection by dipstickon 01-28-2022 Leukocyte esterase Test strip Ql (U) Negative Negative [facility] Work Phone: Urine pHon 01-28-2022 pH (U) 5.0 [pH] 5.0 - 8.0 [facility] Work Phone: Urine protein measurement (m ass/volume)on 01-28-2022 Protein (U) [Mass/Vol] 31.9 mg/dL 0.0-11.8 [facility] Work Phone: Urine protein/creatinine mas s ratioon 01-28-2022 Protein/Creatinine (U) [Mass ratio] 173 mg/g CRE 0-200 [facility] Work Phone: Urine specific gravity measu rementon 01-28-2022 Specific gravity (U) [Rel density] 1.020 1.002-1.030 [facility] Work Phone: Urobilinogen Auto test strip Ql (U)on 01-28-2022 Urobilinogen Ql (U) Normal mg/dl Normal [facility] Work Phone: CNTHERAPYon 01-17-2022 CNTHERAPY OT/PT/Speech Visit (PTMDRG) JUANITA JAY ([id number]) 1955 M Date Time Provider Department 01/17/22 1:00 PM KAILEY LEBRON Date Time Provider Department T[place] 01/17/2022 1:00 PM [id number] LEBRON [facility] Reason for Visit: Physical Therapy [503] PT Discharge [752] Primary Visit Diagnosis:MS (multiple sclerosis) (H[facility]) [G35] Other Visit Diagnoses:Imbalance [R26.89] Abnormality of gait [R26.9] Leg weakness, bilateral [R29.898] Allergies As of Date: 01/17/2022 Noted Allergy Reaction CARBAMAZEPINE 10/22/2011 2 - Rash 14 - Other: See Comments Comments: Acute urinary retention Date Reviewed: 01/08/2022 Reviewed by: RAGHAVENDRA Strauss - Fully Assessed Prescriptions as of 03/30/2022 - citalopram (CELEXA) 40 mg tablet Take 1 tablet by mouth once daily. - dimethyl fumarate (TECFIDERA) [address] TAKE 1 CAPSULE BY MOUTH 2 TIMES A DAY - baclofen (LIORESAL) 10 mg tablet TAKE 1 TABLET BY MOUTH EVERYDAY AT BEDTIME - ASPIRIN ORAL Take by mouth. For body aches - zonisamide (ZONEGRAN) 100 mg capsule Take 200 mg am and 300 mg pm - sildenafil (REVATIO) 20 mg tablet 1-2 TABS NEEDED 30-60 MINUTES PRIOR TO SEXUAL INTERCOURSE - cephALEXin (KEFLEX) 500 mg capsule Take 1 capsule by mouth twice daily. - ergocalciferol 50,000 unit capsule (VITAMIN D2, ISDOL) Take 1 capsule by mouth one time a week. - aspirin, enteric coated (ADULT LOW DOSE ASPIRIN) 81 mg EC tablet Take 1 tablet by mouth once daily. - naproxen sodium(ALEVE 220 MG TAB) as needed - multivitamins w-minerals/lut(CENTR UM SILVER TAB) Take one daily [facility] CNTHERAPYon 01-11-2022 CNTHERAPY OT/PT/Speech Visit (PTMDRG) JUANITA JAY ([id number]) 1955 M Date Time Provider Department 01/11/22 8:30 AM KAILEY LEBRON Date Time Provider Department Center 01/11/2022 8:30 AM [id number] LEBRON [facility] Reason for Visit: PT Progress Note [1466] Primary Visit Diagnosis:MS (multiple sclerosis) (HCC) [G35] Other Visit Diagnoses:Imbalance [R26.89] Abnormality of gait [R26.9] Leg weakness, bilateral [R29.898] Allergies As of Date: 01/11/2022 Noted Allergy Reaction CARBAMAZEPINE 10/22/2011 2 - Rash 14 - Other: See Comments Comments: Acute urinary retention Date Reviewed: 01/08/2022 Reviewed by: RAGHAVENDRA Strauss - Fully Assessed Prescriptions as of 01/11/2022 - citalopram (CELEXA) 40 mg tablet Take 1 tablet by mouth once daily. - dimethyl fumarate (TECFIDERA) [address] TAKE 1 CAPSULE BY MOUTH 2 TIMES A DAY - baclofen (LIORESAL) 10 mg tablet TAKE 1 TABLET BY MOUTH EVERYDAY AT BEDTIME - ASPIRIN ORAL Take by mouth. For body aches - zonisamide (ZONEGRAN) 100 mg capsule Take 200 mg am and 300 mg pm - sildenafil (REVATIO) 20 mg tablet 1-2 TABS NEEDED 30-60 MINUTES PRIOR TO SEXUAL INTERCOURSE - cephALEXin (KEFLEX) 500 mg capsule Take 1 capsule by mouth twice daily. - ergocalciferol 50,000 unit capsule (VITAMIN D2, DRISDOL) Take 1 capsule by mouth one time a week. - aspirin, enteric coated (ADULT LOW DOSE ASPIRIN) 81 mg EC tablet Take 1 tablet by mouth once daily. 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 Transcribe Date/Time: Dec 24 2021 12:02P Dictated by : TIM GOLDSTEIN MD This examination was interpreted and the report reviewed and electronically signed by: TIM GOLDSTEIN MD on Dec 24 2021 12:04PM [facility] DIVISION OF RADIOLOGY * * *Final Report* * * DATE OF EXAM: Dec 24 2021 11:56AM WOX 5253 - XR SHLDR >/=3V AP/KALIE AP/OTHR RT / PROCEDURE REASON: Shoulder injury, right, initial encounter * * * * Physician Interpretation * * * * CLINICAL INDICATION: Injury TECHNIQUE: 3 view radiographic study of the right shoulder COMPARISON: None FINDINGS: No acute fracture or dislocation identified. Mild acromioclavicular joint degenerative changes with mild hypertrophic spur formation. DIVISION OF RADIOLOGY Provider, [facility] [place] - 12/24/2021 * * *Final Report* * * DATE OF EXAM: Dec 24 2021 11:56AM WOX 5253 - XR SHLDR >/=3V AP/KALIE AP/OTHR RT / PROCEDURE REASON: Shoulder injury, right, initial encounter * * * * Physician Interpretation * * * * CLINICAL INDICATION: Injury TECHNIQUE: 3 view radiographic study of the right shoulder COMPARISON: None FINDINGS: No acute fracture or dislocation identified. Mild acromioclavicular joint degenerative changes with mild hypertrophic spur formation. IMPRESSION IMPRESSION: No radiographic evidence of acute osseous injury [employer] Operator[facility] Transcribe Date/Time: Dec 24 2021 12:02P Dictated by : TIM GOLDSTEIN MD This examination was interpreted and the report reviewed and electronically signed by: TIM GOLDSTEIN MD on Dec 24 2021 12:04PM [facility] Radiology Study observation (narrative) Jose rapp [facility] XR Shoulder - right 3 ViewsO rdered By: [facility] Provider on 12-24-2021 [facility] Absolute lymphocyte counton 12-12-2021 Lymphocytes Auto (Unsp spec) [#/Vol] 1.29 10*3/uL 0.83-4.51 [facility] Work Phone: Aldolase ser/plason 12-13-19 22 Aldolase [Catalytic activity/Vol] 2.6 mU/mL 3.3-10.3 [facility] Work Phone: Comment on above: Performed at: [address] [id number] Director: Leo Mcdaniel PhD, Phone: [phone] Basophil percentageon 2021 Basophil percentage 0-5 SEEN /hpf 0-5 [facility] Work Phone: Basophils/100 WBC (Bld) 0.5 % 0-1 [facility] Work Phone: Bilirubin [Mass/Vol] 0.50 mg/dL 0.20-1.00 [facility] Work Phone: Comment on above: For patients on eltr ombopag therapy, use of Dimension [place] TBIL is not recommended. Chloride [Moles/Vol] 111 mmol/L 98-107 [facility] Work Phone: Eosinophils/100 WBC (Bld) 1.6 % 0-5 [facility] Work Phone: Glucose [Mass/Vol] 90 mg/dL 74-106 [facility] Work Phone: [phone] Neutrophils (Bld) [#/Vol] 5.6 10*3/uL 2.0-7.7 [facility] Work Phone: Neutrophils/100 WBC (Bld) 68.5 % 47-70 [facility] Work Phone: Potassium [Moles/Vol] 4.0 mmol/L 3.5-5.1 [facility] Work Phone: [phone] Protein [Mass/Vol] 7.2 g/dL 6.4-8.2 [facility] Work Phone: [phone] Sodium [Moles/Vol] 141 mmol/L 136-145 [facility] Work Phone: [phone] WBC (Bld) [#/Vol] 8.2 10*3/uL 4.4-11.0 [facility] Work Phone: [phone] Bilirubin Test strip Ql (U)o n 12-12-2021 Bilirubin Ql (U) Negative Negative [facility] Work Phone: [phone] Blood erythrocytes count (nu mber/volume)on 12-12-2021 RBC (Bld) [#/Vol] 4.86 10*6/uL 4.6-6.2 [facility] Work Phone: [phone] Blood hemoglobin measurement (mass/volume)on 12-12-2021 Hemoglobin (Bld) [Mass/Vol] 14.6 g/dL 13.0-16.5 [facility] Work Phone: Blood lymphocytes/100 leukoc yteson 12-12-2021 Lymphocytes/100 WBC (Bld) 15.7 % 19-41 [facility] Work Phone: Blood monocytes/100 leukocyt eson 12-12-2021 Monocytes/100 WBC (Bld) 13.5 % 0-10 [facility] Work Phone: Blood platelet mean volumeon 12-12-2021 Platelet mean volume (Bld) [Entitic vol] 10.7 fL 6.2-12.0 [facility] Work Phone: Determination of erythrocyte mean corpuscular volume (MCV)on 12-12-2021 MCV (RBC) [Entitic vol] 91.2 fL 80-94 [facility] Work Phone: Erythrocyte sedimentation ra abhijit 12-12-2021 ESR (Bld) [Velocity] 9 mm/h 0-20 [facility] Work Phone: Hematocrit Auto (Bld) [Volum e fraction]on 12-12-2021 Hematocrit (Bld) [Volume fraction] 44.3 % 40-54 [facility] Work Phone: Ketones Test strip Ql (U)on 12-12-2021 Ketones Ql (U) Negative Negative [facility] Work Phone: Laboratory - Chemistry and C hemistry - challengeon 12-12-2021 ALP [Catalytic activity/Vol] 87 U/L 45-117 [facility] Work Phone: ALT [Catalytic activity/Vol] 16 U/L 16-61 [facility] Work Phone: CK [Catalytic activity/Vol] 64 U/L 39-308 [facility] Work Phone: CO2 [Moles/Vol] 25.0 mmol/L 21.0-32.0 [facility] Work Phone: Globulin (S) [Mass/Vol] 3.4 g/dL 2.2-4.2 [facility] Work Phone: Urea nitrogen/Creatinine [Mass ratio] 23.4 mg/mg 10-20 [facility] Work Phone: Laboratory - Hematology and Cell countson 12-12-2021 Erythrocyte distribution width (RBC) [Entitic vol] 59.0 fL 35.1-43.9 [facility] Work Phone: Erythrocyte distribution width (RBC) [Ratio] 17.5 % 11.6-14.6 [facility] Work Phone: Immature granulocytes/100 WBC (Bld) 0.200 % 0.0-0.9 [facility] Work Phone: Comment on above: IG% - Immature Granu locytes (promyelocytes, myelocytes and metamyelocytes) > 1% indicates that a LEFT SHIFT is Present. MCH (RBC) [Entitic mass] 30.0 pg 27.0-32.0 [facility] Work Phone: Nucleated RBC/100 WBC (Bld) [Ratio] 0 % 0-5 [facility] Work Phone: MCHC Auto (RBC) [Mass/Vol]on 12-12-2021 MCHC (RBC) [Mass/Vol] 33.0 g/dL 32-36 [facility] Work Phone: Mucus LM Ql (Urine sed)on Mucus Ql (Urine sed) 3+ /hpf [facility] Work Phone: Nitrite Test strip Ql (U)on 12-12-2021 Nitrite Ql (U) Negative Negative [facility] Work Phone: No Panel Informationon 12-12 Estimated GFR (MDRD) Amer 98 mL/min >60 [facility] Work Phone: Comment on above: GFR Calc Estimated GFR (MDRD) Non-Af Amer 81 mL/min >60 [facility] [facility] Work Phone: Comment on above: Non- GFR Calc Platelets bldon 12-12-2021 Platelets (Bld) [#/Vol] 351 10*3/uL 150-450 [facility] Work Phone: Protein Test strip Ql (U)on 12-12-2021 Protein Ql (U) 15 mg/dl Negative [facility] Work Phone: Serum DNA double strand anti body assay (units/volume)on 12-12-2021 DNA double strand Ab Qn (S) 1 [IU]/mL 0-9 [facility] Work Phone: Comment on above: Negative <5 Equivoca l 5 - 9 Positive >9 Serum nuclear antibody titer by immunofluorescenceon 12-12-2021 Nuclear Ab IF (S) [Titer] Negative . [facility] Work Phone: Comment on above: Negative <1:80 Borde rline 1:80 Positive >1:80ICAP nomenclature: AC-[id number] more information about Hep-2 cell patterns useANApatterns.org, the official website for theInternational Consensus on Antinuclear Antibody (JOSE)Patterns (ICAP).Performed at: [facility] [id number] Director: Leo Mcdaniel PhD, Phone: [phone] Serum or plasma albumin naila urement (mass/volume)on 12-12-2021 Albumin [Mass/Vol] 3.8 g/dL 3.2-5.0 [facility] Work Phone: Serum or plasma albumin/glob ulin mass ratioon 12-12-2021 Albumin/Globulin [Mass ratio] 1.1 {ratio} 0.9-2.4 [facility] Work Phone: Serum or plasma calcium naila urement (mass/volume)on 12-12-2021 Calcium [Mass/Vol] 9.1 mg/dL 8.5-10.1 [facility] Work Phone: Serum or plasma creatinine m easurement (mass/volume)on 12-12-2021 Creatinine [Mass/Vol] 0.98 mg/dL 0.70-1.30 [facility] Work Phone: Comment on above: The validity of the calculated GFR & GFRAA in patients over 70 years has not been determined. Clinical correlation is essential. Serum or plasma urea nitroge n measurement (mass/volume)on 12-12-2021 Urea nitrogen [Mass/Vol] 23 mg/dL 7-18 [facility] Work Phone: Squamous epithelial cells de tection in urine sediment by light microscopyon 12-12-2021 Epithelial cells.squamous LM Ql (Urine sed) 0-5 SEEN /hpf 0-5 [facility] Work Phone: Thin prep Papanicolaou smear with manual screeningon 12-12-2021 Thin prep Papanicolaou smear with manual screening 13 U/L 15-37 [facility] Work Phone: Thin prep Papanicolaou smear with manual screening 5 5-15 [facility] Work Phone: Urine blood detectionon 08- RBC Ql (U) 10 /ul Negative [facility] Work Phone: RBC Ql (U) 0 SEEN /hpf 0-5 [facility] Work Phone: Urine clarityon 12-12-2021 Clarity (U) Clear Clear [facility] Work Phone: Urine color determinationon 12-12-2021 Color (U) Yellow Yellow [facility] Work Phone: Urine glucose detectionon Glucose Ql (U) Normal mg/dl Normal [facility] Work Phone: Urine leukocyte esterase det ection by dipstickon 12-12-2021 Leukocyte esterase Test strip Ql (U) Negative Negative [facility] Work Phone: Urine pHon 12-12-2021 pH (U) 6.0 [pH] 5.0 - 8.0 [facility] Work Phone: Urine sediment bacteria coun t by microscopy (number/high power field)on 12-12-2021 Bacteria LM.HPF (Urine sed) [#/Area] 0 /[HPF] None Seen [facility] Work Phone: Urine specific gravity measu rementon 12-12-2021 Specific gravity (U) [Rel density] 1.020 1.002-1.030 [facility] Work Phone: Urobilinogen Auto test strip Ql (U)on 12-12-2021 Urobilinogen Ql (U) Normal mg/dl Normal [facility] Work Phone: CNTHERAPYon 11-01-2021 CNTHERAPY OT/PT/Speech Visit (PTMDRG) JUANITA JAY ([id number]) 1955 M Date Time Provider Department 11/01/21 7:45 AM KAILEY LEBRON Date Time Provider Department Center 11/01/2021 7:45 AM [id number] LEBRON [facility] Reason for Visit: Physical Therapy [503] Visit Diagnoses:Leg weakness, bilateral [R29.898] Imbalance [R26.89] Abnormality of gait [R26.9] MS (multiple sclerosis) (HCC) [G35] Allergies As of Date: 11/01/2021 Noted Allergy Reaction CARBAMAZEPINE 10/22/2011 2 - Rash 14 - Other: See Comments Comments: Acute urinary retention Date Reviewed: 07/04/2021 Reviewed by: Veronica Baxter MA - Fully Assessed Prescriptions as of 11/01/2021 - ASPIRIN ORAL Take by mouth. For body aches - baclofen (LIORESAL) 10 mg tablet Take 1 tablet by mouth daily at bedtime. - citalopram (CELEXA) 40 mg tablet Take 1 tablet by mouth once daily. - zonisamide (ZONEGRAN) 100 mg capsule Take 200 mg am and 300 mg pm - dimethyl fumarate (TECFIDERA) [address] TAKE 1 CAPSULE BY MOUTH 2 TIMES A DAY - sildenafil (REVATIO) 20 mg tablet 1-2 TABS NEEDED 30-60 MINUTES PRIOR TO SEXUAL INTERCOURSE - cephALEXin (KEFLEX) 500 mg capsule Take 1 capsule by mouth twice daily. - ergocalciferol 50,000 unit capsule (VITAMIN D2, DRISDOL) Take 1 capsule by mouth one time a week. - aspirin, enteric coated (ADULT LOW DOSE ASPIRIN) 81 mg EC tablet Take 1 tablet by mouth once daily. - naproxen sodium(ALEVE 220 MG TAB) as needed - multivitamins w-minerals/lut(CENTR UM SILVER TAB) Take one daily [facility] CNTHERAPYon 10-24-2021 CNTHERAPY OT/PT/Speech Visit (PTMDRG) JUANITA JAY ([id number]) 1955 M Date Time Provider Department 10/24/21 10:00 AM KAILEY LEBRON Date Time Provider Department Center 10/24/2021 10:00 AM [id number] LEBRON [facility] Reason for Visit: PT Progress Note [1596] Visit Diagnoses:Leg weakness, bilateral [R29.898] Imbalance [R26.89] Abnormality of gait [R26.9] MS (multiple sclerosis) ([facility]) [G35] Allergies As of Date: 10/24/2021 Noted Allergy Reaction CARBAMAZEPINE 10/22/2011 2 - Rash 14 - Other: See Comments Comments: Acute urinary retention Date Reviewed: 07/04/2021 Reviewed by: Veronica Baxter MA - Fully Assessed Prescriptions as of 10/24/2021 - ASPIRIN ORAL Take by mouth. For body aches - baclofen (LIORESAL) 10 mg tablet Take 1 tablet by mouth daily at bedtime. - citalopram (CELEXA) 40 mg tablet Take 1 tablet by mouth once daily. - zonisamide (ZONEGRAN) 100 mg capsule Take 200 mg am and 300 mg pm - dimethyl fumarate (TECFIDERA) [address] TAKE 1 CAPSULE BY MOUTH 2 TIMES A DAY - sildenafil (REVATIO) 20 mg tablet 1-2 TABS NEEDED 30-60 MINUTES PRIOR TO SEXUAL INTERCOURSE - cephALEXin (KEFLEX) 500 mg capsule Take 1 capsule by mouth twice daily. - ergocalciferol 50,000 unit capsule (VITAMIN D2, DRISDOL) Take 1 capsule by mouth one time a week. - aspirin, enteric coated (ADULT LOW DOSE ASPIRIN) 81 mg EC tablet Take 1 tablet by mouth once daily. - naproxen sodium(ALEVE 220 MG TAB) as needed - multivitamins w-minerals/lut(CENTR UM SILVER TAB) Take one daily [facility] CNTHERAPYon 10-11-2021 CNTHERAPY OT/PT/Speech Visit (PTMG) JUANITA JAY ([id number]) 1955 M Date Time Provider Department 10/11/21 10:45 AM KAILEY LEBRON Date Time Provider Department Center 10/11/2021 10:45 AM [id number] LEBRON [facility] Reason for Visit: Physical Therapy [503] Visit Diagnoses:Leg weakness, bilateral [R29.898] Imbalance [R26.89] Abnormality of gait [R26.9] MS (multiple sclerosis) ([facility]) [G35] Allergies As of Date: 10/11/2021 Noted Allergy Reaction CARBAMAZEPINE 10/22/2011 2 - Rash 14 - Other: See Comments Comments: Acute urinary retention Date Reviewed: 07/04/2021 Reviewed by: Veronica Baxter MA - Fully Assessed Prescriptions as of 10/11/2021 - ASPIRIN ORAL Take by mouth. For body aches - baclofen (LIORESAL) 10 mg tablet Take 1 tablet by mouth daily at bedtime. - citalopram (CELEXA) 40 mg tablet Take 1 tablet by mouth once daily. - zonisamide (ZONEGRAN) 100 mg capsule Take 200 mg am and 300 mg pm - dimethyl fumarate (TECFIDERA) [address] TAKE 1 CAPSULE BY MOUTH 2 TIMES A DAY - sildenafil (REVATIO) 20 mg tablet 1-2 TABS NEEDED 30-60 MINUTES PRIOR TO SEXUAL INTERCOURSE - cephALEXin (KEFLEX) 500 mg capsule Take 1 capsule by mouth twice daily. - ergocalciferol 50,000 unit capsule (VITAMIN D2, DRISDOL) Take 1 capsule by mouth one time a week. - aspirin, enteric coated (ADULT LOW DOSE ASPIRIN) 81 mg EC tablet Take 1 tablet by mouth once daily. - naproxen sodium(ALEVE 220 MG TAB) as needed - multivitamins w-minerals/lut(CENTR UM SILVER TAB) Take one daily [facility] CNTHERAPYon 10-10-2021 CNTHERAPY OT/PT/Speech Visit (PTMDRG) JUANITA JAY ([id number]) 1955 M Date Time Provider Department 10/10/21 10:45 AM KAILEY LEBRON Date Time Provider Department Center 10/10/2021 10:45 AM [id number] LEBRON [facility] Reason for Visit: Physical Therapy [503] Visit Diagnoses:Leg weakness, bilateral [R29.898] Imbalance [R26.89] Abnormality of gait [R26.9] MS (multiple sclerosis) ([facility]) [G35] Allergies As of Date: 10/10/2021 Noted Allergy Reaction CARBAMAZEPINE 10/22/2011 2 - Rash 14 - Other: See Comments Comments: Acute urinary retention Date Reviewed: 07/04/2021 Reviewed by: Veronica Baxter MA - Fully Assessed Prescriptions as of 10/10/2021 - ASPIRIN ORAL Take by mouth. For body aches - baclofen (LIORESAL) 10 mg tablet Take 1 tablet by mouth daily at bedtime. - citalopram (CELEXA) 40 mg tablet Take 1 tablet by mouth once daily. - zonisamide (ZONEGRAN) 100 mg capsule Take 200 mg am and 300 mg pm - dimethyl fumarate (TECFIDERA) [address] TAKE 1 CAPSULE BY MOUTH 2 TIMES A DAY - sildenafil (REVATIO) 20 mg tablet 1-2 TABS NEEDED 30-60 MINUTES PRIOR TO SEXUAL INTERCOURSE - cephALEXin (KEFLEX) 500 mg capsule Take 1 capsule by mouth twice daily. - ergocalciferol 50,000 unit capsule (VITAMIN D2, DRISDOL) Take 1 capsule by mouth one time a week. - aspirin, enteric coated (ADULT LOW DOSE ASPIRIN) 81 mg EC tablet Take 1 tablet by mouth once daily. - naproxen sodium(ALEVE 220 MG TAB) as needed - multivitamins w-minerals/lut(CENTR UM SILVER TAB) Take one daily [facility] CNTHERAPYon 09-20-2021 CNTHERAPY OT/PT/Speech Visit (PTMDRG) JUANITA JAY ([id number]) 1955 M Date Time Provider Department 09/20/21 10:45 AM KAILEY LEBRON Date Time Provider Department Center 09/20/2021 10:45 AM [id number] LEBRON [facility] Reason for Visit: Physical Therapy [503] Visit Diagnoses:Leg weakness, bilateral [R29.898] Imbalance [R26.89] Abnormality of gait [R26.9] MS (multiple sclerosis) ([facility]) [G35] Allergies As of Date: 09/20/2021 Noted Allergy Reaction CARBAMAZEPINE 10/22/2011 2 - Rash 14 - Other: See Comments Comments: Acute urinary retention Date Reviewed: 07/04/2021 Reviewed by: Veronica Baxter MA - Fully Assessed Prescriptions as of 09/20/2021 - ASPIRIN ORAL Take by mouth. For body aches - baclofen (LIORESAL) 10 mg tablet Take 1 tablet by mouth daily at bedtime. - citalopram (CELEXA) 40 mg tablet Take 1 tablet by mouth once daily. - zonisamide (ZONEGRAN) 100 mg capsule Take 200 mg am and 300 mg pm - dimethyl fumarate (TECFIDERA) [address] TAKE 1 CAPSULE BY MOUTH 2 TIMES A DAY - sildenafil (REVATIO) 20 mg tablet 1-2 TABS NEEDED 30-60 MINUTES PRIOR TO SEXUAL INTERCOURSE - cephALEXin (KEFLEX) 500 mg capsule Take 1 capsule by mouth twice daily. - ergocalciferol 50,000 unit capsule (VITAMIN D2, DRISDOL) Take 1 capsule by mouth one time a week. - aspirin, enteric coated (ADULT LOW DOSE ASPIRIN) 81 mg EC tablet Take 1 tablet by mouth once daily. - naproxen sodium(ALEVE 220 MG TAB) as needed - multivitamins w-minerals/lut(CENTR UM SILVER TAB) Take one daily [facility] CNTHERAPYon 09-18-2021 CNTHERAPY OT/PT/Speech Visit (PTMDRG) JUANITA JAY ([id number]) 1955 M Date Time Provider Department 09/18/21 10:45 AM KAILEY LEBRON Date Time Provider Department Center 09/18/2021 10:45 [facility] [id number] Reason for Visit: PT Progress Note [1596] Visit Diagnoses:Leg weakness, bilateral [R29.898] Imbalance [R26.89] Abnormality of gait [R26.9] MS (multiple sclerosis) ([facility]) [G35] Allergies As of Date: 09/18/2021 Noted Allergy Reaction CARBAMAZEPINE 10/22/2011 2 - Rash 14 - Other: See Comments Comments: Acute urinary retention Date Reviewed: 07/04/2021 Reviewed by: Veornica Baxter MA - Fully Assessed Prescriptions as of 09/18/2021 - ASPIRIN ORAL Take by mouth. For body aches - baclofen (LIORESAL) 10 mg tablet Take 1 tablet by mouth daily at bedtime. - citalopram (CELEXA) 40 mg tablet Take 1 tablet by mouth once daily. - zonisamide (ZONEGRAN) 100 mg capsule Take 200 mg am and 300 mg pm - dimethyl fumarate (TECFIDERA) [address] TAKE 1 CAPSULE BY MOUTH 2 TIMES A DAY - sildenafil (REVATIO) 20 mg tablet 1-2 TABS NEEDED 30-60 MINUTES PRIOR TO SEXUAL INTERCOURSE - cephALEXin (KEFLEX) 500 mg capsule Take 1 capsule by mouth twice daily. - ergocalciferol 50,000 unit capsule (VITAMIN D2, DRISDOL) Take 1 capsule by mouth one time a week. - aspirin, enteric coated (ADULT LOW DOSE ASPIRIN) 81 mg EC tablet Take 1 tablet by mouth once daily. - naproxen sodium(ALEVE 220 MG TAB) as needed - multivitamins w-minerals/lut(CENTR UM SILVER TAB) Take one daily [facility] CNTHERAPYon 09-06-2021 CNTHERAPY OT/PT/Speech Visit (PTMDRG) JUANITA JAY ([id number]) 1955 M Date Time Provider Department 09/06/21 10:00 AM KAILEY LEBRON Date Time Provider Department Center 09/06/2021 10:00 AM [id number] LEBRON [facility] Reason for Visit: Physical Therapy [503] Visit Diagnoses:Leg weakness, bilateral [R29.898] Imbalance [R26.89] Abnormality of gait [R26.9] MS (multiple sclerosis) ([facility]) [G35] Allergies As of Date: 09/06/2021 Noted Allergy Reaction CARBAMAZEPINE 10/22/2011 2 - Rash 14 - Other: See Comments Comments: Acute urinary retention Date Reviewed: 07/04/2021 Reviewed by: Veronica Baxter MA - Fully Assessed Prescriptions as of 09/06/2021 - ASPIRIN ORAL Take by mouth. For body aches - baclofen (LIORESAL) 10 mg tablet Take 1 tablet by mouth daily at bedtime. - citalopram (CELEXA) 40 mg tablet Take 1 tablet by mouth once daily. - zonisamide (ZONEGRAN) 100 mg capsule Take 200 mg am and 300 mg pm - dimethyl fumarate (TECFIDERA) [address] TAKE 1 CAPSULE BY MOUTH 2 TIMES A DAY - sildenafil (REVATIO) 20 mg tablet 1-2 TABS NEEDED 30-60 MINUTES PRIOR TO SEXUAL INTERCOURSE - cephALEXin (KEFLEX) 500 mg capsule Take 1 capsule by mouth twice daily. - ergocalciferol 50,000 unit capsule (VITAMIN D2, DRISDOL) Take 1 capsule by mouth one time a week. - aspirin, enteric coated (ADULT LOW DOSE ASPIRIN) 81 mg EC tablet Take 1 tablet by mouth once daily. - naproxen sodium(ALEVE 220 MG TAB) as needed - multivitamins w-minerals/lut(CENTR UM SILVER TAB) Take one daily [facility] CNTHERAPYon 08-15-2021 CNTHERAPY OT/PT/Speech Visit (PTMDRG) JUANITA JAY ([id number]) 1955 M Date Time Provider Department 08/15/21 12:30 PM KAILEY LEBRON Date Time Provider Department Center 08/15/2021 12:30 PM [id number] LEBRON [facility] Reason for Visit: PT Eval [747] Patient Education [91] Primary Visit Diagnosis:Leg weakness, bilateral [R29.898] Other Visit Diagnoses:Multiple sclerosis (HCC) [G35] Abnormality of gait [R26.9] Imbalance [R26.89] Allergies As of Date: 08/15/2021 Noted Allergy Reaction CARBAMAZEPINE 10/22/2011 2 - Rash 14 - Other: See Comments Comments: Acute urinary retention Date Reviewed: 07/04/2021 Reviewed by: Veronica Baxter MA - Fully Assessed Prescriptions as of 08/15/2021 - ASPIRIN ORAL Take by mouth. For body aches - baclofen (LIORESAL) 10 mg tablet Take 1 tablet by mouth daily at bedtime. - citalopram (CELEXA) 40 mg tablet Take 1 tablet by mouth once daily. - zonisamide (ZONEGRAN) 100 mg capsule Take 200 mg am and 300 mg pm - dimethyl fumarate (TECFIDERA) [address] TAKE 1 CAPSULE BY MOUTH 2 TIMES A DAY - sildenafil (REVATIO) 20 mg tablet 1-2 TABS NEEDED 30-60 MINUTES PRIOR TO SEXUAL INTERCOURSE - cephALEXin (KEFLEX) 500 mg capsule Take 1 capsule by mouth twice daily. - ergocalciferol 50,000 unit capsule (VITAMIN D2, DRISDOL) Take 1 capsule by mouth one time a week. - aspirin, enteric coated (ADULT LOW DOSE ASPIRIN) 81 mg EC tablet Take 1 tablet by mouth once daily. - naproxen sodium(ALEVE 220 MG TAB) as needed - multivitamins w-minerals/lut(CENTR UM SILVER TAB) Take one daily Letter Text Normal [facility] BRAIN & CERVICAL SPINE MRI D [facility] DATAon 07-23-2021 Brain Enhancing Lesions None C [facility] Brain Interval Improvement None [facility] Brain New T2 Lesions None Site [facility] Brain Other Significant MRI Findings None. [facility] Brain Parenchymal Volume Loss Moderate [facility] Brain T2 [place] of Disease Moderate [facility] MRI BRAIN WO/W IVCONon 07-23 [facility] XR Elbow - left AP and Later al and obliqueon 10-13-2020 IMPRESSION: No acute osseous abnormality identified. Soft tissue swelling in the region of the olecranon bursa which may be posttraumatic or infectious in etiology. Wheel Mill Operator: CLARIBEL Transcribe Date/Time: Oct 13 2020 8:24A Dictated by : BUSHRA FRANKEL MD This examination was interpreted and the report reviewed and electronically signed by: BUSHRA FRANKEL MD on Oct 13 2020 8:35AM [facility] DIVISION OF RADIOLOGY * * *Final Report* * * DATE OF EXAM: Oct 13 2020 8:20AM WOX [id number] - XR ELBOW 3V AP/LAT/OTHER LT / PROCEDURE REASON: Elbow injury, left, initial encounter * * * * Physician Interpretation * * * * Left elbow radiographs HISTORY: 65 years old Clinical information: Elbow injury, left, initial encounter pt states tripped and fell 3 days ago pain posterior side of left elbow TECHNIQUE: Images: XR ELBOW 3V AP/LAT/OTHER LT Comparison: None. RESULT: Findings: No fracture or dislocation. Minimal osteophyte formation involving the coronoid process of the ulna. No elbow joint effusion. Calcific tendinosis involving the common extensor tendons. This appears to project over the joint space on the oblique view. Soft tissue swelling in the region of the olecranon bursa. DIVISION OF RADIOLOGY Provider, [facility] [place] - 10/13/2020 * * *Final Report* * * DATE OF EXAM: Oct 13 2020 8:20AM WOX [id number] - XR ELBOW 3V AP/LAT/OTHER LT / PROCEDURE REASON: Elbow injury, left, initial encounter * * * * Physician Interpretation * * * * Left elbow radiographs HISTORY: 65 years old Clinical information: Elbow injury, left, initial encounter pt states tripped and fell 3 days ago pain posterior side of left elbow TECHNIQUE: Images: XR ELBOW 3V AP/LAT/OTHER LT Comparison: None. RESULT: Findings: No fracture or dislocation. Minimal osteophyte formation involving the coronoid process of the ulna. No elbow joint effusion. Calcific tendinosis involving the common extensor tendons. This appears to project over the joint space on the oblique view. Soft tissue swelling in the region of the olecranon bursa. IMPRESSION IMPRESSION: No acute osseous abnormality identified. Soft tissue swelling in the region of the olecranon bursa which may be posttraumatic or infectious in etiology. Wheel Mill Operator: CLARIBEL Transcribe Date/Time: Oct 13 2020 8:24A Dictated by : BUSHRA FRANKEL MD This examination was interpreted and the report reviewed and electronically signed by: BUSHRA FRANKEL MD on Oct 13 2020 8:35AM EST [facility] Rad[facility]narrative[facility] Elbow - left AP and Later al and obliqueOrdered By: [facility] Provider on 10-13-2020 [facility] Vital Signs Date Time Vital Sign Value Performing Clinician Facility 11-10-2024 13:29-0400 Body height 182.9 cm Laverne Monroe MD Work Phone: [facility] 11-10-2024 13:29-0400 Body mass index (BMI) [Ratio] 23.46 kg/m2 Laverne Monroe MD Work Phone: [facility] 11-10-2024 13:29-0400 Body weight 78.47 kg Laverne Monroe MD Work Phone: [facility] 11-10-2024 13:29-0400 Diastolic blood pressure 68 mm[Hg] Laverne Monroe MD Work Phone: [facility] 11-10-2024 13:29-0400 Heart rate 62 /min Laverne Monroe MD Work Phone: [facility] 11-10-2024 13:29-0400 SaO2% (BldA) [Mass fraction] 98 % Laverne Monroe MD Work Phone: [facility] 11-10-2024 13:29-0400 Systolic blood pressure 111 mm[Hg] Laverne Monroe MD Work Phone: [facility] 08-19-2024 10:53-0400 Body height 182.9 cm Tello Slaughter PA-C Work Phone: [facility] 08-19-2024 10:53-0400 Body mass index (BMI) [Ratio] 23.46 kg/m2 Tello Young PA-C Work Phone: [facility] 08-19-2024 10:53-0400 Body weight 78.47 kg Tello Young PA-C Work Phone: [facility] 08-19-2024 10:53-0400 Diastolic blood pressure 63 mm[Hg] Tello Young PA-C Work Phone: [facility] 08-19-2024 10:53-0400 Heart rate 90 /min Tello Young PA-C Work Phone: [facility] 08-19-2024 10:53-0400 Systolic blood pressure 117 mm[Hg] Tello Young PA-C Work Phone: [facility] 04-14-2024 00:09-0500 Body weight 80.[address] Wisam Monroe MD Work Phone: [facility] 04-06-2024 10:22-0500 Body height 182.[address] Wisam Monroe MD Work Phone: [facility] 04-06-2024 10:22-0500 Body weight 81.[address] Wisam Monroe MD Work Phone: [facility] 02-05-2024 10:52-0400 Body height 182.9 cm Tello Young PA-C Work Phone: [facility] 02-05-2024 10:52-0400 Body mass index (BMI) [Ratio] 24.14 kg/m2 Tello Young PA-C Work Phone: [facility] 02-05-2024 10:52-0400 Body weight 80.74 kg Tello Young PA-C Work Phone: [facility] 02-05-2024 10:52-0400 Diastolic blood pressure 57 mm[Hg] Tello Young PA-C Work Phone: [facility] 02-05-2024 10:52-0400 Heart rate 54 /min Tello Slaughter PA-C Work Phone: [facility] 02-05-2024 10:52-0400 Systolic blood pressure 111 mm[Hg] Tello BARRETT-Edgard Work Phone: [facility] 12-01-2023 11:40-0400 Heart rate 67 /min JORDAN HENRY MD [facility] 12-01-2023 11:01-0400 Body temperature 98.06 [degF] JORDAN HENRY MD [address] [place] [address] 12-01-2023 11:01-0400 Diastolic Blood Pressure Non-Invasive 64 mm[Hg] JORDAN HENRY MD [facility] 12-01-2023 11:01-0400 Heart rate 70 /min JORDAN HENRY MD [facility] 12-01-2023 11:01-0400 Mean blood pressure 78 mm[Hg] JORDAN HENRY MD [address] [place] [address] 12-01-2023 11:01-0400 Reason For Taking VItal Signs JORDAN HENRY MD [facility] 12-01-2023 11:01-0400 Respiratory rate 18 /min JORDAN HENRY MD [facility] 12-01-2023 11:01-0400 Systolic Blood Pressure Non-Invasive 111 mm[Hg] JORDAN HENRY MD [facility] 12-01-2023 08:20-0400 Reason For Taking VItal Signs JORDAN HENRY MD [facility] 12-01-2023 07:53-0400 Heart rate 77 /min JORDAN HENRY MD [facility] 12-01-2023 06:46-0400 Body temperature 98.06 [degF] JORDAN HENRY MD [facility] 12-01-2023 06:46-0400 Diastolic Blood Pressure Non-Invasive 79 mm[Hg] JORDAN HENRY MD [facility] 12-01-2023 06:46-0400 Mean blood pressure 91 mm[Hg] JORDAN HENRY MD [facility] 12-01-2023 06:46-0400 Reason For Taking VItal Signs JORDAN HENRY MD [address] [place] [address] 12-01-2023 06:46-0400 Respiratory rate 18 /min JORDAN HENRY MD [address] [place] [address] 12-01-2023 06:46-0400 Systolic Blood Pressure Non-Invasive 118 mm[Hg] JORDAN HENRY MD [address] [place] [address] 12-01-2023 02:58-0400 Body temperature 98.24 [degF] JORDAN HENRY MD [address] [place] [address] 12-01-2023 02:58-0400 Diastolic Blood Pressure Non-Invasive 77 mm[Hg] JORDAN HENRY MD [address] [place] [address] 12-01-2023 02:58-0400 Mean blood pressure 88 mm[Hg] JORDAN HENRY MD [address] [place] [address] 12-01-2023 02:58-0400 Respiratory rate 18 /min JORDAN HENRY MD [address] [place] [address] 12-01-2023 02:58-0400 Systolic Blood Pressure Non-Invasive 119 mm[Hg] JORDAN HENRY MD [address] [place] [address] 11-30-2023 15:48-0400 Heart rate 68 /min JORDAN HENRY MD [address] [place] [address] 11-30-2023 14:59-0400 Blood Pressure Cuff Size JORDAN HENRY MD [address] [place] [address] 11-30-2023 14:59-0400 Blood Pressure Location JORDAN HENRY MD [address] [place] [address] 11-30-2023 14:59-0400 Blood Pressure Method JORDAN HENRY MD [facility] 11-30-2023 11:14-0400 Blood Pressure Cuff Size JORDAN HENRY MD [facility] 11-30-2023 11:14-0400 Blood Pressure Location JORDAN HENRY MD [facility] 11-30-2023 11:14-0400 Blood Pressure Method JORDAN HENRY MD [address] [place] [address] 11-30-2023 07:47-0400 Heart rate 93 /min JORDAN HENRY MD [address] [place] [address] 11-30-2023 04:06-0400 Body weight 86.5 kg JORDAN HENRY MD [address] [place] [address] 11-29-2023 22:19-0400 Blood Pressure Cuff Size JORDAN HENRY MD [address] [place] [address] 11-29-2023 22:19-0400 Blood Pressure Location JORDAN HENRY MD [facility] 11-29-2023 22:19-0400 Blood Pressure Method JORDAN HENRY MD [facility] 11-29-2023 14:00-0400 Diastolic blood pressure 60 mm[Hg] JORDAN HENRY MD [facility] 11-29-2023 14:00-0400 Mean blood pressure 82 mm[Hg] JORDAN HENRY MD [facility] 11-29-2023 14:00-0400 Systolic blood pressure 120 mm[Hg] JORDAN HENRY MD [facility] 11-29-2023 13:20-0400 Diastolic blood pressure 53 mm[Hg] JORDAN HENRY MD [facility] 11-29-2023 13:20-0400 Mean blood pressure 73 mm[Hg] JORDAN HENRY MD [address] [place] [address] 11-29-2023 13:20-0400 Systolic blood pressure 108 mm[Hg] JORDAN HENRY MD [address] [place] [address] 11-29-2023 12:02-0400 Diastolic blood pressure 53 mm[Hg] JORDAN HENRY MD [address] [place] [address] 11-29-2023 12:02-0400 Mean blood pressure 69 mm[Hg] JORDAN HENRY MD [address] [place] [address] 11-29-2023 12:02-0400 Systolic blood pressure 95 mm[Hg] JORDAN HENRY MD [address] [place] [address] 11-28-2023 08:33-0400 Diastolic blood pressure 53 mm[Hg] JORDAN HENRY MD [address] [place] [address] 11-28-2023 08:33-0400 Heart rate 109 /min JORDAN HENRY MD [address] [place] [address] 11-28-2023 08:33-0400 Systolic blood pressure 100 mm[Hg] JORDAN HENRY MD [address] [place] [address] 11-28-2023 07:33-0400 Diastolic blood pressure 54 mm[Hg] JORDAN HENRY MD [address] [place] [address] 11-28-2023 07:33-0400 Heart rate 112 /min JORDAN HENRY MD [address] [place] [address] 11-28-2023 07:33-0400 Systolic blood pressure 109 mm[Hg] JORDAN HENRY MD [address] [place] [address] 11-28-2023 07:31-0400 Signs/Symptoms Transfusion Reaction No JORDAN HENRY MD [address] [place] [address] 11-28-2023 07:06-0400 Signs/Symptoms Transfusion Reaction JORDAN HENRY MD [address] [place] [address] 11-28-2023 06:36-0400 Signs/Symptoms Transfusion Reaction JORDAN HENRY MD [address] [place] [address] 11-28-2023 06:06-0400 Diastolic blood pressure 76 mm[Hg] JORDAN HENRY MD [facility] 11-28-2023 06:06-0400 Heart rate 109 /min JORDAN HENRY MD [facility] 11-28-2023 06:06-0400 Systolic blood pressure 117 mm[Hg] JORDAN HENRY MD [facility] 11-28-2023 05:45-0400 Inspected Blood Donor Unit Appearance JORDAN HENRY MD [facility] 11-28-2023 05:45-0400 Transfusion Documentation Started/Paper JORDAN HENRY MD [facility] 11-27-2023 03:48-0400 SaO2% (BldA) [Mass fraction] 99.5 % JORDAN HENRY MD [facility] 11-26-2023 19:35-0400 SaO2% (BldA) [Mass fraction] 98.1 % JORDAN HENRY MD [facility] 11-26-2023 16:38-0400 SaO2% (BldA) [Mass fraction] 98.7 % JORDAN HENRY MD [facility] 11-26-2023 12:20-0400 Respiratory Rate - Anes 12 br/min JORDAN HENRY MD [facility] 11-26-2023 12:15-0400 Body temperature 97.88 [degF] JORDAN HENRY MD [facility] 11-26-2023 12:15-0400 Body temperature 97.21 [degF] JORDAN HENRY MD [facility] 11-26-2023 12:15-0400 Respiratory Rate - Anes 12 br/min JORDAN HENRY MD [facility] 11-26-2023 12:10-0400 Body temperature 97.86 [degF] JORDAN HENRY MD [facility] 11-26-2023 12:10-0400 Body temperature 97.16 [degF] JORDAN HENRY MD [facility] 11-26-2023 12:10-0400 Respiratory Rate - Anes 12 br/min JORDAN HENRY MD [facility] 11-26-2023 12:05-0400 Body temperature 97.84 [degF] JORDAN HENRY MD [facility] 11-26-2023 12:05-0400 Body temperature 97.14 [degF] JORDAN HENRY MD [facility] 11-24-2023 17:48-0400 Body height 183 cm JORDAN HENRY MD [facility] 11-24-2023 17:48-0400 Body weight 83.8 kg JORDAN HENRY MD [facility] 11-24-2023 17:48-0400 Body weight 25.02 kg/m2 JORDAN HENRY MD [facility] 07-04-2023 10:39-0400 Body height 182.9 cm Autumn Florian PA-C Work Phone: [facility] 07-04-2023 10:39-0400 Body weight 90.72 kg Autumn Florian PA-C Work Phone: [facility] 07-04-2023 10:39-0400 Diastolic blood pressure 59 mm[Hg] Autumn Florian PA-C Work Phone: [facility] 07-04-2023 10:39-0400 Heart rate 72 /min Autumn Florian PA-C Work Phone: [facility] 07-04-2023 10:39-0400 Respiratory rate 18 /min Autumn Florian PA-C Work Phone: [facility] 07-04-2023 10:39-0400 SaO2% (BldA) [Mass fraction] 97 % Autumn Florian PA-C Work Phone: [facility] 07-04-2023 10:39-0400 Systolic blood pressure 114 mm[Hg] Autumn Florian PA-C Work Phone: [facility] 02-15-2023 15:35-0400 Body height 182.9 cm Khoa Goldberg MD Work Phone: [facility] 02-15-2023 15:35-0400 Body mass index (BMI) [Ratio] 27.12 kg/m2 Khoa Goldberg MD Work Phone: [facility] 02-15-2023 15:35-0400 Body temperature 98.1 [degF] Khoa Goldberg MD Work Phone: [facility] 02-15-2023 15:35-0400 Body weight 90.72 kg Khoa Goldberg MD Work Phone: [facility] 02-15-2023 15:35-0400 Diastolic blood pressure 88 mm[Hg] Khoa Goldberg MD Work Phone: [facility] 02-15-2023 15:35-0400 Heart rate 96 /min Khoa Goldberg MD Work Phone: [facility] 02-15-2023 15:35-0400 Respiratory rate 18 /min Khoa Goldberg MD Work Phone: [facility] 02-15-2023 15:35-0400 SaO2% (BldA) [Mass fraction] 97 % Khoa Goldberg MD Work Phone: [facility] [employer] 02-15-2023 15:35-0400 Systolic blood pressure 148 mm[Hg] Khoa Goldberg MD Work Phone: [facility] 07-09-2022 13:47-0400 Body height 182.9 cm Tello BARRETT-C Work Phone: [facility] 07-09-2022 13:47-0400 Body weight 90.72 kg Tello BARRETT-C Work Phone: [facility] 07-09-2022 13:47-0400 Diastolic blood pressure 54 mm[Hg] Tello Young PA-C Work Phone: [facility] 07-09-2022 13:47-0400 Heart rate 76 /min Tello Young PA-C Work Phone: [facility] 07-09-2022 13:47-0400 Systolic blood pressure 140 mm[Hg] Tello Young PA-C Work Phone: [facility] 04-03-2022 15:37-0500 Body height 182.9 cm Raymon Simon MD, PhD Work Phone: [facility] 04-03-2022 15:37-0500 Body weight 89.36 kg Raymon Simon MD, PhD Work Phone: [facility] 04-03-2022 15:37-0500 Diastolic blood pressure 74 mm[Hg] Raymon Simon MD, PhD Work Phone: [facility] 04-03-2022 15:37-0500 Heart rate 80 /min Raymon Simon MD, PhD Work Phone: [facility] 04-03-2022 15:37-0500 SaO2% (BldA) [Mass fraction] 98 % Raymon Simon MD, PhD Work Phone: [facility] 04-03-2022 15:37-0500 Systolic blood pressure 137 mm[Hg] Raymon Simon MD, PhD Work Phone: [facility] 01-08-2022 13:01-0400 Body height 182.9 cm Tello Young PA-C Work Phone: [facility] 01-08-2022 13:01-0400 Body weight 89.36 kg Tello Young PA-C Work Phone: [facility] 01-08-2022 13:01-0400 Diastolic blood pressure 86 mm[Hg] Tello Young PA-C Work Phone: [facility] 01-08-2022 13:01-0400 Heart rate 82 /min Tello Young PA-C Work Phone: [facility] 01-08-2022 13:01-0400 Systolic blood pressure 143 mm[Hg] Tello Young PA-C Work Phone: [facility] 11-02-2021 09:36-0400 Body temperature 98.6 [degF] Dianne Athy PA-C Work Phone: [facility] 11-02-2021 09:36-0400 Diastolic blood pressure 68 mm[Hg] Dianne Athy PA-C Work Phone: [facility] 11-02-2021 09:36-0400 Heart rate 70 /min Dianne Athy PA-C Work Phone: [facility] 11-02-2021 09:36-0400 Respiratory rate 18 /min Dianne Athy PA-C Work Phone: [facility] 11-02-2021 09:36-0400 SaO2% (BldA) [Mass fraction] 98 % Dianne Athy PA-C Work Phone: [facility] 11-02-2021 09:36-0400 Systolic blood pressure 118 mm[Hg] Dianne Athy PA-C Work Phone: [facility] Encounters Encounter Date Encounter Type Care Provider Facility Start: 12-01-2024 End: 12-01-2024 Telephone encounter Laverne Monroe MD Work Phone: [facility] Start: 11-10-2024 End: 11-10-2024 ambulatory LAVERNE MONROE Facility:[facility] Start: 11-10-2024 End: 11-10-2024 Patient encounter procedure Laverne Monroe MD Work Phone: 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; S/P CABG x 2; Acute gastric ulcer with hemorrhage; Anemia, blood loss; Screening for colon cancer; Screening for prostate cancer; Encounter for immunization; Screening for abdominal aortic aneurysm Start: 10-13-2024 End: 10-13-2024 Patient encounter procedure Gael Villarreal APRN.DIRECTOR OF PATIENT CARE Work Phone: [facility] Start: 10-13-2024 End: 10-14-2024 Refill Gael Bakerlexie OLIVER.DIRECTOR OF PATIENT CARE Work Phone: [facility] Comment on above: Refill Request Start: 09-30-2024 End: 09-30-2024 ambulatory Wilma Reyeslabrosario CONWAY [facility] Start: 09-30-2024 End: 09-30-2024 Patient encounter procedure Wilma Castillo Aleja CONWAY [facility] Comment on above: Population Health Na vigation Outreach ([facility] ) Start: 09-08-2024 End: 09-08-2024 ambulatory Wilma Castillo Aleja ZORAIDA [facility] Start: 09-08-2024 End: 09-08-2024 Patient encounter procedure Wilma Castillo Aleja CONWAY [facility] Comment on above: Population Health Na vigation Outreach ([facility]/) Start: 08-19-2024 End: 10-19-2024 Follow-up encounter Tello Slaughter PA-C Work Phone: [facility] Start: 08-19-2024 End: 08-19-2024 Patient encounter procedure [facility] Comment on above: Multiple sclerosis ( HCC); Vitamin D deficiency Start: 08-19-2024 End: 08-19-2024 Patient encounter procedure Tello Slaughter PA-C Work Phone: [facility] Comment on above: Multiple sclerosis ( HCC) (Primary Dx); Vitamin D deficiency; Imbalance Start: 08-19-2024 End: 08-19-2024 ambulatory Izzy Mendoza Research Coordinator [facility] Start: 08-03-2024 End: 08-03-2024 ambulatory Wisam Monroe Facility:[facility] Start: 07-29-2024 End: 07-29-2024 Telephone encounter Laverne Monroe MD Work Phone: [facility] Comment on above: Received Outside Med ical Records ([facility] lab) Start: 07-27-2024 End: 07-27-[address] Wisam Monroe MD Work Phone: [facility] Work Phone: Start: 07-27-2024 End: 07-27-2024 Patient encounter procedure Zeferino Lizarraga [employer]UST[employer] LOADER-C -Laboratory Work Phone: Start: 07-27-2024 End: 07-27-2024 ambulatory Zeferino Lizarraga [employer]USTICS LOADER Facility:[facility] Start: 07-17-2024 End: 07-19-2024 Patient encounter procedure Tello Slaughter PA-C Work Phone: [facility] Start: 07-17-2024 End: 07-19-2024 Refill Tello Slaughter PA-C Work Phone: [facility] Comment on above: Refill Request Start: 07-07-2024 End: 07-07-2024 ambulatory Wilma Jasso MA [facility] Start: 07-07-2024 End: 07-07-2024 Patient encounter procedure Wilma Jasso MA [facility] Comment on above: Population Health Na vigation Outreach ([facility]) Start: 06-02-2024 End: 06-02-2024 ambulatory Wilma Jasso MA [facility] Start: 06-02-2024 End: 06-02-2024 Patient encounter procedure Wilma Jasso MA [facility] Comment on above: Population Health Na vigation Outreach ([facility]) Start: 05-25-2024 [facility] Start: 05-03-2024 End: 05-03-2024 Telephone encounter Wilma Jasso MA [facility] Start: 2024 End: 05-14-2024 ambulatory Wisam Koncandace Facility:[facility] Start: 2024 End: 05-14-[address] Shravan Bernal MD -Cardiac Rehab Work Phone: Start: 04-22-2024 End: 04-22-2024 Refill Tello Slaughter PA-C Work Phone: [facility] Comment on above: Refill Request Start: 04-21-2024 End: 04-21-2024 Patient encounter procedure Tello Slaughter PA-C Work Phone: [facility] Start: 04-21-2024 End: 04-21-2024 Refill Tello Slaughter PA-C Work Phone: [facility] Comment on above: Refill Request Start: 04-12-2024 End: 04-13-2024 ambulatory Wisam Monroe Facility:[facility] Start: 04-12-2024 End: 04-13-[address] Shravan Bernal MD -Cardiac Rehab Work Phone: Start: 04-05-2024 End: 04-05-2024 Telephone encounter Laverne Monroe MD Work Phone: [facility] Comment on above: Received Outside Med ical Records ([facility] Visit summary 04/01/2024 hospital f/u) Start: 04-01-2024 End: 04-01-2024 Telephone encounter Laverne Monroe MD Work Phone: [facility] Comment on above: Outside Labs Results ([facility]) Start: 04-01-2024 End: 04-01-2024 ambulatory Zeferino Lizarraga [employer] LOADER Facility:[facility] Start: 03-24-2024 End: 03-24-2024 ambulatory Zeferino H Elham [employer]ICS LOADER Facility:[facility] Start: 03-08-2024 End: 03-13-2024 ambulatory Wisam Monroe Facility:[facility] Start: 02-12-2024 End: 02-19-2024 Chart abstracting Tello Slaughter PA-C Work Phone: [facility] Comment on above: Medication Preauthor ization (Dimethyl Fumarate 240 mg.) Start: 02-11-2024 End: 02-12-2024 ambulatory Wisam Monroe Facility:[facility] Start: 02-06-2024 End: 02-06-2024 ambulatory TELLO SLAUGHTER Facility:[facility] Start: 02-05-2024 End: 02-05-2024 ambulatory TELLO SLAUGHTER Facility:[facility] Start: 02-05-2024 End: 02-05-2024 Patient encounter procedure Tello Slaughter PA-C Work Phone: [facility] Comment on above: Multiple sclerosis ( HCC) (Primary Dx); Vitamin D deficiency Start: 01-29-2024 Encounter for genera l adult medical examination without abnormal findings [facility] Start: 01-23-2024 End: 01-23-2024 Refill Tello Slaughter PA-C Work Phone: [facility] Comment on above: Refill Request Start: 01-18-2024 End: 01-19-2024 Patient encounter procedure Tello Slaughter PA-C Work Phone[facility] Start: 01-18-2024 End: 01-19-2024 Refill Tello Slaughter PA-C Work Phone: [facility] Comment on above: Refill Request Start: 01-14-2024 End: 01-14-2024 Telephone encounter Laverne Monroe MD Work Phone: [facility] Comment on above: Received Outside Med ical Records ([facility]) Start: 01-13-2024 ambulatory Koby Briones cility:[facility] Start: 01-09-2024 End: 01-09-2024 ambulatory [facility] Facility:[facility] Start: 01-07-2024 End: 01-07-2024 ambulatory Morelia Jensen NP Facility:[facility] Start: 01-06-2024 End: 01-06-2024 Telephone encounter Laverne Monroe MD Work Phone: [facility] Comment on above: Received Outside Med ical Records ([facility] Cardi[facility]acic [facility]) Start: 01-06-2024 End: 01-06-2024 Patient encounter procedure DEENA ENNIS EMPLOYMENT OFFICE CLERK-DIRECTOR OF PATIENT CARE [facility] Start: 01-06-2024 End: 01-06-2024 ambulatory LAVERNE MONROE MD Facility:[facility] Start: 01-05-2024 End: 01-05-2024 Telephone encounter Laverne Monroe MD Work Phone: [facility] Comment on above: Received Outside Med ical Records ([facility] 01/02/24) Start: 01-02-2024 End: 01-02-2024 ambulatory Zeferino Andrew Elham [employer]UST[employer] LOADER Facility:[facility] Start: 12-30-2023 ambulatory Efewongbe Oleghe OLS Fa cility:[facility] Start: 12-23-2023 ambulatory Efewongbe Oleghe OLS Fa cility:[facility] Start: 12-16-2023 ambulatory Efewongbe Oleghe OLS Fa cility:[facility] Start: 12-10-2023 End: 12-10-2023 Telephone encounter Laverne Monroe MD Work Phone: [facility] Comment on above: Received Outside Med ical Records ([facility] Operative note 11/24/2023 OPCAB X2 ) Start: 12-09-2023 ambulatory Efewongbe Oleghe OLS Fa cility:[facility] Start: 12-05-2023 ambulatory Efewongbe Oleghe OLS Fa cility:[facility] Start: 12-04-2023 End: 12-04-2023 ambulatory Morelia Jensen [employer]USTICS LOADER Facility:[facility] Start: 12-04-2023 End: 12-04-2023 Telephone encounter Laverne Monroe MD Work Phone: [facility] Comment on above: Outside [id number] Ordered ([facility] blood type) Start: 12-04-2023 ambulatory Morelia Jensen CAUSTICS LOADER Faci lity:[facility] Start: 12-03-2023 End: 12-03-2023 ambulatory Morelia Jensen CAUSTICS LOADER Facility:[facility] Start: 12-02-2023 End: 12-02-2023 ambulatory Efewongbe Oleghe Facility:[facility] Start: 12-01-2023 End: 12-01-2023 Telephone encounter Laverne Monroe MD Work Phone: [facility] Comment on above: Received Outside Med ical Records ([facility] Cardiac Cath Diagnostic 11/24/2023) Start: 11-25-2023 Telephone encounter Laverne Monroe MD Work Phone: [facility] Comment on above: Received Outside Med ical Records ([facility] ED 11/20) Start: 11-24-2023 End: 12-01-2023 Evaluation and management of inpatient JORDAN HENRY MD [facility] Start: 11-24-2023 Telephone encounter Laverne Monroe MD Work Phone: [facility] Comment on above: Received Outside Med ical Records ([facility] Cardiology ) Start: 11-21-2023 ambulatory Wisam Monroe Facility :[facility] Start: 11-21-2023 End: 11-24-2023 ambulatory Raz Staples Facility:[facility] Start: 10-30-2023 Telephone encounter Tello terrazas PA-C Work Phone: [facility] Comment on above: Appointment (lvm for patient to call so we can get him scheduled for a followup with tello slaughter) Start: 10-22-2023 Telephone encounter Tello terrazas PA-C Work Phone: [facility] Comment on above: Appointment (lvm for patient to call so we can get him scheduled for a follow up) Start: 10-09-2023 ambulatory Chayo Yao [facility] Start: 10-09-2023 Patient encounter procedure Chayo Yao MA [facility] Comment on above: Population Health Na vigation Outreach ([facility] No PCP) Start: 08-05-2023 End: 08-05-2023 Subsequent hospital visit by physician [employer] [facility] Wstr (I-Stat/1.5t) Work Phone: Radiology Comment on above: Multiple sclerosis ( HCC) [G35] Start: 07-31-2023 Refill Tello Parish Work Phone: [facility] Comment on above: Med Change Request Start: 07-24-2023 Telephone encounter Tello terrazas PA-C Work Phone: [facility] Comment on above: Appointment (tired c alling patient to get him scheduled for a follow up but the number did not work so sent mychart ) Start: 07-07-2023 ambulatory Tello Parish Work Phone: [facility] Comment on above: BACLOFEN 10 MG TABLE T Start: 07-04-2023 End: 07-04-2023 Patient encounter procedure Autumn Florian PA-C Work Phone: Neurology Comment on above: Seizure (HCC) (Prima ry Dx) Start: 07-01-2023 ambulatory Chayo Dseir [facility] Comment on above: Population Health Na vigation Outreach ([facility] No PCP) Start: 02-18-2023 Refill Kerry Garza APRN.DIRECTOR OF PATIENT CARE Work Phone: [facility] Comment on above: Refill Request Start: 02-15-2023 End: 02-15-2023 Emergency department patient visit KHOA GOLDBERG [facility] Start: 02-15-2023 End: 02-15-2023 Emergency department patient visit Khoa Goldberg MD Work Phone: [facility] Comment on above: Laceration of left e yebrow, initial encounter (Primary Dx); Closed head injury, initial encounter Start: 12-02-2022 Refill Darline Rapp Work Phone: [facility] Comment on above: Refill Request Start: 07-11-2022 Telephone encounter Raymon Simon MD, PhD Work Phone: Neurology Comment on above: Orders (To discuss s kin rash ) Start: 07-10-2022 Telephone encounter Neurology Provid er Neurology Comment on above: Received Outside Med ical Records ([facility] office visit notes) Patient Update Start: 07-09-2022 End: 07-09-2022 Patient encounter procedure Tello Slaughter PA-C Work Phone: [facility] Comment on above: Right foot drop (Mary nii Dx); Examination of participant in clinical trial; Multiple sclerosis (HCC) Start: 05-21-2022 ambulatory Isaías Hansen PRN.CNP Work Phone: Family Practice Start: 04-19-2022 Telephone encounter Dianne kemp PA-C Work Phone: [facility] Comment on above: Orders Start: 04-11-2022 Chart abstracting Elke ([facility] h) [facility] Start: 04-03-2022 End: 04-03-2022 Patient encounter procedure Raymon Simon MD, PhD Work Phone: Neurology Comment on above: Seizure (HCC) Start: 02-14-2022 Telephone encounter Laverne Monroe MD Work Phone: [facility] Comment on above: Outside Lab Results ([facility]) Start: 02-01-2022 Telephone encounter Laverne Monroe MD Work Phone: [facility] Comment on above: Received Outside Med ical Records ([facility] Aldolase 01/28/2022) Start: 01-29-2022 Telephone encounter Laverne Monroe MD Work Phone: [facility] Comment on above: Outside Labs Results ([facility]) Start: 01-28-2022 End: 01-28-2022 ambulatory [facility] Work Phone: Start: 01-28-2022 End: 01-28-2022 Patient encounter procedure [facility]-Laboratory, [place] Start: 01-17-2022 End: 01-17-2022 ambulatory Kailey Lebron PT, DPT Work Phone: [facility] Comment on above: MS (multiple scleros is) (HCC) (Primary Dx); Imbalance; Abnormality of gait; Leg weakness, bilateral Start: 01-11-2022 End: 01-11-2022 ambulatory KAILEY BEBB Facility:[facility] Start: 01-11-2022 End: 01-11-2022 ambulatory Kailey Lebron PT, DPT Work Phone: [facility] Comment on above: MS (multiple scleros is) (HCC) (Primary Dx); Imbalance; Abnormality of gait; Leg weakness, bilateral Start: 01-09-2022 ambulatory Tello Parish Work Phone: [facility] Comment on above: Last visit Start: 01-08-2022 ambulatory Ekle ([facility]) Richykadeem [facility] Start: 01-08-2022 End: 01-08-2022 Patient encounter procedure Tello Slaughter PA-C Work Phone: [facility] Comment on above: Seizure (HCC); Examination of participant in clinical trial; Multiple sclerosis ([facility]) Start: 01-03-2022 Chart abstracting Darline North MD Work Phone: [facility] Comment on above: Medication Preauthor ization (Dimethyl Fumarate 240 mg.) Start: 12-24-2021 End: 12-24-2021 Subsequent hospital visit by physician [facility] System Work Phone: Radiology Comment on above: Shoulder injury, rig ht, initial encounter [S49.91XA] Start: 12-20-2021 Refill Darline Rapp Work Phone: [facility] Comment on above: Refill Request Start: 12-12-2021 End: 12-12-2021 ambulatory [facility] Work Phone: Start: 12-12-2021 End: 12-12-2021 Patient encounter procedure [facility] Start: 11-07-2021 Refill Tello Parish Work Phone: [facility] Comment on above: Refill Request Start: 11-02-2021 End: 11-02-2021 Patient encounter procedure Dianne Leigh PA-C Work Phone: [facility] Comment on above: Dermatitis (Primary Dx) Start: 11-01-2021 End: 11-01-2021 ambulatory LAVERNE MONROE Facility:[facility] Start: 11-01-2021 End: 11-01-2021 ambulatory Kailey Lebron PT, DPT Work Phone: [facility] Comment on above: Leg weakness, bilate ral; Imbalance; Abnormality of gait; MS (multiple sclerosis) (HCC) Start: 10-24-2021 End: 10-24-2021 ambulatory Kailey Lebron PT, DPT Work Phone: [facility] Comment on above: Leg weakness, bilate ral; Imbalance; Abnormality of gait; MS (multiple sclerosis) ([facility]) Start: 10-11-2021 End: 10-11-2021 ambulatory [facility] Start: 10-11-2021 End: 10-11-2021 ambulatory Kailey Lebron PT, DPT Work Phone: [facility] Comment on above: Leg weakness, bilate ral; Imbalance; Abnormality of gait; MS (multiple sclerosis) ([facility]) Start: 10-10-2021 End: 10-10-2021 [facility] Start: 10-10-2021 End: 10-10-2021 ambulatory Kailey Lebron PT, DPT Work Phone: [facility] Comment on above: Leg weakness, bilate ral; Imbalance; Abnormality of gait; MS (multiple sclerosis) ([facility]) Start: 09-26-2021 Chart abstracting Tello Slaughter PA-C Work Phone: [facility] Comment on above: Handicap Placard Scr ipt Start: 09-20-2021 End: 09-20-2021 [facility] Start: 09-20-2021 End: 09-20-2021 ambulatory Kailey Lebron PT, DPT Work Phone: [facility] Comment on above: Leg weakness, bilate ral; Imbalance; Abnormality of gait; MS (multiple sclerosis) ([facility]) Start: 09-18-2021 End: 09-18-2021 ambulatory [facility] Start: 09-18-2021 End: 09-18-2021 ambulatory Kailey Lebron PT, DPT Work Phone: [facility] Comment on above: Leg weakness, bilate ral; Imbalance; Abnormality of gait; MS (multiple sclerosis) ([facility]) Start: 09-06-2021 End: 09-06-2021 ambulatory [facility] Facility:[facility] Start: 08-15-2021 End: 08-15-2021 ambulatory [facility] Facility:[facility] Start: 08-15-2021 End: 08-15-2021 ambulatory [facility] PT, DPT Work Phone: [facility] Comment on above: Leg weakness, bilate ral (Primary Dx); Multiple sclerosis (HCC); Abnormality of gait; Imbalance Start: 08-02-2021 Refill Tello Parish Work Phone: [facility] Comment on above: Refill Request Start: 07-28-2021 ambulatory Tello Parish Work Phone: [facility] Comment on above: Mri Start: 07-23-2021 End: 07-23-2021 Subsequent hospital visit by physician Mri Radio [facility] Wstr (I-Stat/1.5t) Work Phone: Radiology Comment on above: Multiple sclerosis, relapsing-remitting (HCC) [G35] Start: 10-13-2020 End: 10-13-2020 Subsequent hospital visit by physician Xr [facility] Hang Work Phone: Radiology Comment on above: Elbow injury, left, initial encounter [S59.902A] Start: 09-13-2011 Patient encounter procedure Mri (I-Stat/1.5t) Work Phone: [facility] Work Phone: Procedures Date Procedure Procedure Detail Performing Clinician Start: 08-19-2024 Blood count complete auto&auto difrntl wbc Tello Slaughter PA-C Work Phone: Start: 07-29-2024 Lipid 1996 panel - Serum or Plasma Laverne Monroe MD Work Phone: Start: 07-27-2024 Hepatic function 2000 panel - Serum or Plasma [facility] Start: 07-27-2024 LIPID PANEL, STANDARD [facility] Start: 03-24-2024 Hepatic function 2000 panel - Serum or Plasma [facility] Start: 03-24-2024 LIPID PANEL BASIC (EU,FV,HL,MARLENY,MM,SP) [facility] Start: 03-24-2024 Lipid 1996 panel - Serum or Plasma Laverne Monroe MD Work Phone: Start: 12-03-2023 CONFIRM BLOOD TYPE [facility] Provider Start: 11-13-2023 History of coronary artery bypass grafting History of coronary artery bypass surgery Dr. Wisam Monroe MD Work Phone: Start: 08-05-2023 Mri brain brain stem w/o w/contrast material Tello Slaughter PA-C Work Phone: Start: 08-05-2023 BRAIN & CERVICAL SPINE MRI DISCRETE DATA [facility] Provider Start: 02-15-2023 Simple repair f/e/e/n/l/m 2.6cm-5.0 cm Khoa Goldberg MD Work Phone: Start: 12-24-2021 Radex shoulder complete minimum 2 views Michael Rushing EMPLOYMENT OFFICE CLERK.DIRECTOR OF PATIENT CARE Work Phone: Start: 07-23-2021 BRAIN & CERVICAL SPINE MRI DISCRETE DATA [facility] Provider Start: 07-23-2021 Mri brain brain stem w/o w/contrast material Tello Slaughter PA-C Work Phone: Start: 07-01-2021 Adult depression screening assessment Mri (I-Stat/1.5t) Work Phone: Start: 10-13-2020 Radex elbow complete minimum 3 views Wilma Aguilera EMPLOYMENT OFFICE CLERK.DIRECTOR OF PATIENT CARE Work Phone: Start: 02-18-2019 Lipid 1996 panel - Serum or Plasma Kerry Garza EMPLOYMENT OFFICE CLERK.DIRECTOR OF PATIENT CARE Work Phone: Start: 08-16-2011 Colonoscopy Mri (I-Stat/1.5t) Work Phone: Start: 04-14-1967 Splenectomy JORDAN HENRY MD Catheterization of l eft heart JORDAN HENRY MD History of coronary artery bypass grafting S/P CABG x 2 Laverne Monroe MD Work Phone: Plan of Treatment Date Care Activity Detail Author Start: 2030 RSV Vaccine (1 - 1-d ose 75+ series) RSV Vaccine (1 - 1-dose 75+ series) [facility] Start: 07-29-2029 Lipid panel Lipid Screening [facility] Start: 03-24-2029 Lipid panel Lipid Screening [facility] Start: 07-08-2026 Diabetes Screening Diabetes Screenin g [facility] Start: 11-10-2025 Medicare Annual Well ness Visit Medicare Annual Wellness Visit [facility] Start: 02-24-2025 End: 02-24-2025 Patient encounter procedure 02/24/2025 11:15 AM EST Office Visit [facility]erral [address] [address] Tello Slaughter PA-C [address] [facility] [place] [address] ms [facility] Comment on above: vt Start: 02-21-2025 End: 02-21-2025 Patient encounter procedure 02/21/2025 9:00 AM EST Appointment Radiology [address] [place] [address] ..MRI BRAIN WO/W IVCON Radiology Comment on above: ..MRI BRAIN WO/W IVC ON Start: 01-18-2025 End: 01-18-2025 Patient encounter procedure 01/18/2025 9:00 AM EDT Office Visit Family [address] [place], [place] [address] Laverne Monroe MD [address] [place] [address] [place], [place] [id number] MEDICARE WELLNESS Family Practice Comment on above: MEDICARE WELLNESS Start: 12-13-2024 Influenza vaccination C [facility] Start: 11-10-2024 End: 02-09-2025 CBC panel - Blood by Automated count COMPLETE BLOOD COUNT Lab Routine Anemia, blood loss Expected: 11/10/2024, Expires: 02/09/2025 [facility] Comment on above: Expected: 11/10/2024 , Expires: 02/09/2025 Start: 11-10-2024 End: 02-09-2025 Iron and Iron binding capacity panel - Serum or Plasma IRON AND TIBC Lab Routine Anemia, blood loss Expected: 11/10/2024, Expires: 02/09/2025 [facility] Comment on above: Expected: 11/10/2024 , Expires: 02/09/2025 Start: 11-10-2024 End: 02-09-2025 PSA/PROSTATE SPECIFIC ANTIGEN SCREENING PSA/PROSTATE SPECIFIC ANTIGEN SCREENING Lab Routine Screening for prostate cancer Expected: 11/10/2024, Expires: 02/09/2025 [facility] Work Phone: Comment on above: Expected: 11/10/2024 , Expires: 02/09/2025 Start: 08-19-2024 End: 08-19-2024 Patient encounter procedure 08/19/2024 11:15 AM EDT Office Visit [address] [address] Tello Slaughter PA-C [address] [place], [place] [phone] [facility] Comment on above: vt Start: 08-05-2024 End: 08-05-2024 Patient encounter procedure 08/05/2024 10:30 AM EDT Office Visit [address] [address] Tello Slaughter PA-C [address] [place], [place] [id number] [facility] Comment on above: vt Start: 04-30-2024 DTaP/Tdap/Td Vaccine s (2 - Td or Tdap) DTaP/Tdap/Td Vaccines (2 - Td or Tdap) [facility] Start: 04-30-2024 Urine microalbumin profile [facility] Start: 04-14-2024 Advance Directive Discussion Advance Directive Discussion [facility] Start: 02-19-2024 Lipid 1996 panel - S pedro or Plasma Lipid Screening [facility] Start: 02-19-2024 Lipid panel Lipid Screening [facility] Start: 02-19-2024 LIPID SCREEN LIPID SCREEN [facility] Start: 02-19-2024 PROSTATE CANCER SCREENING DISCUSSION PROSTATE CANCER SCREENING DISCUSSION [facility] Start: 02-19-2024 Prostate specific antigen measurement Prostate Cancer Screening Discussion [facility] Start: 02-05-2024 End: 05-06-2024 25-hydroxyvitamin D3 [Mass/volume] in Serum or Plasma VITAMIN D 25 HYDROXY Lab Routine Vitamin D deficiency Expected: 02/05/2024, Expires: 05/06/2024 [facility] Comment on above: Expected: 02/05/2024 , Expires: 05/06/2024 Start: 02-05-2024 End: 02-05-2024 Patient encounter procedure 02/05/2024 11:15 AM EDT Office Visit [facility] [address] [address] Tello Slaughter PA-C [address] [place] [address] ms [facility] Comment on above: ms Start: 02-04-2024 End: 05-05-2024 CBC W Auto Differential panel - Blood COMPLETE BLOOD COUNT AND DIFFERENTIAL Lab Routine Multiple sclerosis (HCC) Expected: 02/04/2024, Expires: 05/05/2024 [facility] Work Phone: Comment on above: Expected: 02/04/2024 , Expires: 05/05/2024 Start: 02-04-2024 End: 05-05-2024 Hepatic function 2000 panel - Serum or Plasma HEPATIC FUNCTION PNL Lab Routine Multiple sclerosis (HCC) Expected: 02/04/2024, Expires: 05/05/2024 [facility] Comment on above: Expected: 02/04/2024 , Expires: 05/05/2024 Start: 01-21-2024 End: 01-21-2024 Patient encounter procedure 01/21/2024 11:00 AM EDT Office Visit Family Practice [address] [place] [address] [place], [place] [phone] Laverne Monroe MD [address] [facility] [place] [address] Rehab follow up Family Practice Comment on above: Rehab follow up Start: 01-13-2024 End: 01-13-2024 Patient encounter procedure 01/13/2024 10:30 AM EDT Office Visit [address] [address] Tello Slaughter PA-C [address] [place] [address] ms [facility] Comment on above: ms Start: 12-18-2023 End: 12-18-2023 Patient encounter procedure 12/18/2023 1:00 PM EDT Office Visit [address] [address] Tello Slaughter PA-C [address] [place] [address] ms [facility] Comment on above: vt Start: 12-14-2023 Covid-19 Vaccine ( season) Covid-19 Vaccine () [facility] Start: 12-14-2023 Influenza vaccination C [facility] Start: 07-04-2023 End: 10-03-2023 CBC panel - Blood by Automated count CBC Lab Routine Seizure (HCC) Expected: 07/04/2023, Expires: 10/03/2023 [facility] Work Phone: Comment on above: Expected: 07/04/2023 , Expires: 10/03/2023 Start: 07-04-2023 End: 10-03-2023 Comprehensive metabolic 2000 panel - Serum or Plasma COMP METABOLIC PANEL Lab Routine Seizure (HCC) Expected: 07/04/2023, Expires: 10/03/2023 [facility] Work Phone: Comment on above: Expected: 07/04/2023 , Expires: 10/03/2023 Start: 07-04-2023 End: 10-03-2023 Zonisamide [Mass/volume] in Serum or Plasma ZONISAMIDE Lab Routine Seizure (HCC) Expected: 07/04/2023, Expires: 10/03/2023 [facility] Work Phone: Comment on above: Expected: 07/04/2023 , Expires: 10/03/2023 Start: 04-14-2023 Advance Directive Discussion Advance Directive Discussion [facility] Start: 04-14-2023 Depression Assessment Depression Ass essment [facility] Start: 02-18-2023 End: 05-20-2023 CBC W Auto Differential panel - Blood CBC + DIFF Lab Routine Multiple sclerosis (HCC) Expected: 02/18/2023, Expires: 05/20/2023 [facility] Work Phone: Comment on above: Expected: 02/18/2023 , Expires: 05/20/2023 Start: 02-18-2023 End: 05-20-2023 Hepatic function 2000 panel - Serum or Plasma HEPATIC FUNCTION PNL Lab Routine Multiple sclerosis (HCC) Expected: 02/18/2023, Expires: 05/20/2023 [facility] Work Phone: Comment on above: Expected: 02/18/2023 , Expires: 05/20/2023 Start: 12-13-2022 Covid-19 Vaccine () Covid-19 Vaccine () [facility] Start: 12-13-2022 Influenza vaccination C [facility] Start: 12-02-2022 End: 02-01-2023 CBC W Auto Differential panel - Blood CBC + DIFF Lab Routine Medication monitoring encounter Expected: 12/02/2022, Expires: 02/01/2023 [facility] Work Phone: Comment on above: Expected: 12/02/2022 , Expires: 02/01/2023 Start: 12-02-2022 End: 02-01-2023 Comprehensive metabolic 2000 panel - Serum or Plasma COMP METABOLIC PANEL Lab Routine Medication monitoring encounter Expected: 12/02/2022, Expires: 02/01/2023 [facility] Work Phone: Comment on above: Expected: 12/02/2022 , Expires: 02/01/2023 Start: 07-09-2022 End: 09-08-2022 CBC W Auto Differential panel - Blood CBC + DIFF Lab Routine Multiple sclerosis (HCC) Expected: 07/09/2022, Expires: 09/08/2022 [facility] Work Phone: Comment on above: Expected: 07/09/2022 , Expires: 09/08/2022 Start: 07-09-2022 End: 09-08-2022 Hepatic function 2000 panel - Serum or Plasma HEPATIC FUNCTION PNL Lab Routine Multiple sclerosis (HCC) Expected: 07/09/2022, Expires: 09/08/2022 [facility] Work Phone: Comment on above: Expected: 07/09/2022 , Expires: 09/08/2022 Start: 07-01-2022 Adult depression screening assessment DEPRESSION SCREENING [facility] Start: 04-14-2022 ADVANCE DIRECTIVE DISCUSSION ADVANCE DIRECTIVE DISCUSSION [facility] Start: 04-14-2022 DEPRESSION ASSESSMENT DEPRESSION ASS ESSMENT [facility] Start: 01-28-2022 Procedure [facility] Work Phone: Start: 01-21-2022 DIABETES SCREEN DIABETES SCREEN [facility] Start: 01-21-2022 Diabetes Screening Diabetes Screenin g [facility] Start: 12-20-2021 End: 02-19-2022 CBC W Auto Differential panel - Blood CBC + DIFF Lab Routine Multiple sclerosis (HCC) Expected: 12/20/2021, Expires: 02/19/2022 [facility] Work Phone: Comment on above: Expected: 12/20/2021 , Expires: 02/19/2022 Start: 12-20-2021 End: 02-19-2022 Hepatic function 2000 panel - Serum or Plasma HEPATIC FUNCTION PNL Lab Routine Multiple sclerosis (HCC) Expected: 12/20/2021, Expires: 02/19/2022 [facility] Work Phone: Comment on above: Expected: 12/20/2021 , Expires: 02/19/2022 Start: 12-13-2021 Influenza vaccination C [facility] Start: 08-15-2021 Colonoscopy COLONOSCOPY [facility] Start: 08-15-2021 COLORECTAL CANCER SCREENING COLORECTAL CANCER SCREENING [facility] Start: 08-15-2021 Screening for malign ant neoplasm of colon [facility] Start: 04-14-2021 ADVANCE DIRECTIVE DISCUSSION ADVANCE DIRECTIVE DISCUSSION [facility] Start: 04-14-2021 DEPRESSION ASSESSMENT DEPRESSION ASS ESSMENT [facility] Start: 2020 Pneumococcal Vaccine : 65+ Years (1 - PCV) Pneumococcal Vaccine: 65+ Years (1 - PCV) [facility] Start: 2020 PNEUMOVAX AGE 65 AND OVER WITH 5YR LOOKBACK (#1) PNEUMOVAX AGE 65 AND OVER WITH 5YR LOOKBACK (#1) [facility] Start: 04-14-2020 Medicare Annual Well ness Visit Medicare Annual Wellness Visit [facility] Start: 2015 RSV Vaccine (1 - 1-d ose 60+ series) RSV Vaccine (1 - 1-dose 60+ series) [facility] Start: 2000 COLOGUARD (FIT-DNA) COLOGUARD (FIT-D NA) [facility] Start: [address] COLONOGRAPHY [facility] Start: 2000 FECAL OCCULT BLOOD FECAL OCCULT BLOO D [facility] Start: 2000 Screening for malign ant neoplasm of colon [facility] Start: 2000 SIGMOIDOSCOPY SIGMOIDOSCOPY [facility] Start: 1974 Pneumococcal Vaccine : 50+ (1 of 2 - PCV) Pneumococcal Vaccine: 50+ (1 of 2 - PCV) [facility] Start: 1973 Anxiety Screening Anxiety Screening [facility] Start: 1973 Depression Screening Depression Scre ing [facility] Start: 1973 Diabetes mellitus screening Diabetes Screening [facility] Start: 1973 Hepatitis C screening Hepatitis C Sc rusty [facility] Start: 1967 Depression Screening Depression Scre ing [facility] Start: 1965 Meningococcal B Vacc ine (1 of 4 - Increased Risk) Meningococcal B Vaccine (1 of 4 - Increased Risk) [facility] Start: 1965 Meningococcal B Vacc ine (1 of 5 - Increased Risk) Meningococcal B Vaccine (1 of 5 - Increased Risk) [facility] Start: 1965 Meningococcal B Vacc ine: Consider Based On Risk (1 of 4 - Increased Risk) Meningococcal B Vaccine: Consider Based On Risk (1 of 4 - Increased Risk) [facility] Start: 1965 MENINGOCOCCAL B: Consider based on risk (1 of 4 - Increased Risk Bexsero 2-dose series) MENINGOCOCCAL B: Consider based on risk (1 of 4 - Increased Risk Bexsero 2-dose series) [facility] Start: 1965 MENINGOCOCCAL B: Consider based on risk (1 of 4 - Increased Risk) MENINGOCOCCAL B: Consider based on risk (1 of 4 - Increased Risk) [facility] Start: 1961 Pneumococcal Vaccine : 65+ (1 - PCV) Pneumococcal Vaccine: 65+ (1 - PCV) [facility] Start: 1961 Pneumococcal Vaccine : 65+ (1 of 2 - PCV) Pneumococcal Vaccine: 65+ (1 of 2 - PCV) [facility] Start: 1961 PNEUMOCOCCAL: 65+ (1 - PCV) PNEUMOCOCCAL: 65+ (1 - PCV) [facility] Start: 1960 COVID-19 VACCINE (#1) COVID-19 VACCI NE (#1) [facility] Start: 1960 COVID-19 VACCINE (1) COVID-19 VACCIN E (1) [facility] Start: 1957 MENINGOCOCCAL CONJUG ATE (1 - Risk 2-dose series) MENINGOCOCCAL CONJUGATE (1 - Risk 2-dose series) [facility] Start: 1957 Meningococcal Conjug ate Vaccine (1 - Risk 2-dose series) Meningococcal Conjugate Vaccine (1 - Risk 2-dose series) [facility] Start: 07-22-1956 HIB (1 of 1 - Risk 1-dose series) HIB (1 of 1 - Risk 1-dose series) [facility] Start: 07-22-1956 Hib Vaccine (1 of 1 - Risk 1-dose series) Hib Vaccine (1 of 1 - Risk 1-dose series) [facility] Start: 1955 MENINGOCOCCAL CONJUG ATE (1 - Risk start 2-23 months series) MENINGOCOCCAL CONJUGATE (1 - Risk start 2-23 months series) [facility] Start: 1955 COVID-19 VACCINE (#1) COVID-19 VACCI NE (#1) [facility] Start: 1955 ABDOMINAL AORTIC ANEURYSM SCREENING ABDOMINAL AORTIC ANEURYSM SCREENING [facility] Start: 1955 Abdominal aortic aneurysm screening Abdominal Aortic Aneurysm Screening [facility] Start: 1955 Lipid panel Lipid Panel [facility] Start: 1955 Screening for malign ant neoplasm of colon [facility] Aldolase [Enzymatic activity/volume] in Serum or Plasma [facility] Work Phone: End: 11-10-2025 Flexible sigmoidoscopy study COLONOSCOPY DIAGNOSTIC Endoscopy Routine Anemia, blood loss Screening for colon cancer 1 Occurrences starting 11/10/2024 until 11/10/2025 [facility] Comment on above: 1 Occurrences starti ng 11/10/2024 until 11/10/2025 End: 09-18-2025 MR Brain WO and W contrast IV MRI BRAIN WO/W IVCON Radiology Routine Multiple sclerosis (HCC) 1 Occurrences starting 08/19/2024 until 09/18/2025 [facility] Work Phone: Comment on above: 1 Occurrences starti ng 08/19/2024 until 09/18/2025 End: 08-08-2023 Mri brain brain stem w/o w/contrast material MRI BRAIN WO/W IVCON Radiology Routine Multiple sclerosis (HCC) 1 Occurrences starting 07/09/2022 until 08/08/2023 [facility] Work Phone: Comment on above: 1 Occurrences starti ng 07/09/2022 until 08/08/2023 Procedure [facility] Work Phone: PT PLAN OF CARE CERTIFICATION PT PLAN OF CARE CERTIFICATION Procedures Routine Multiple sclerosis (HCC) Leg weakness, bilateral Abnormality of gait Imbalance Ordered: 08/15/2021 [facility] Work Phone: Comment on above: Ordered: 08/15/2021 PT PLAN OF CARE CERTIFICATION PT PLAN OF CARE CERTIFICATION Procedures Routine Leg weakness, bilateral Imbalance Abnormality of gait MS (multiple sclerosis) (HCC) Ordered: 10/24/2021 [facility] Work Phone: Comment on above: Ordered: 10/24/2021 PT PLAN OF CARE CERTIFICATION PT PLAN OF CARE CERTIFICATION Procedures Routine MS (multiple sclerosis) (HCC) Imbalance Abnormality of gait Leg weakness, bilateral Ordered: 01/11/2022 [facility] Work Phone: Comment on above: Ordered: 01/11/2022 End: 12-10-2025 US Abdominal Aorta for screening US SCREENING FOR AAA Radiology Routine Screening for abdominal aortic aneurysm 1 Occurrences starting 11/10/2024 until 12/10/2025 [facility] Comment on above: 1 Occurrences starti ng 11/10/2024 until 12/10/2025 [facility] Immunizations Immunization Date Immunization Notes Care Provider Fa cility 11-10-2024 pneumococcal Conjuga te, unspecified formulation Laverne Monroe MD Work Phone: [facility] 11-10-2024 pneumococcal conjuga te (PCV20) vaccine, 20 valent (PREVNAR 20) Laverne Monroe MD Work Phone: [facility] 02-08-2020 zoster vaccine recombinant Mri (I-Stat/1.5t) Work Phone: [facility] 12-08-2019 zoster vaccine recombinant Mri (I-Stat/1.5t) Work Phone: [facility] 04-30-2014 tetanus toxoid, redu luis diphtheria toxoid, and acellular pertussis vaccine, adsorbed Mri (I-Stat/1.5t) Work Phone: [facility] 02-08-2008 influenza virus vacc ine, unspecified formulation Mri (I-Stat/1.5t) Work Phone: [facility] Payers Date Payer Category Payer Unknown [id number] 2023 Self-pay 2020 Private Health Insurance [facility] INDEMNITY [id number] 2020-[facility] [phone] [address] [place] [address] Indemnity [id number] 2020 Private Health Insurance [id number] 2020 Medicare MEDICARE MEDICAR E A AND B [id number] [address] [address] [address] [place] [id number] Medicare [id number] 2020 Medicare [id number]. [id number] 2020 Medicare [id number] 2018 Private Health Insurance [id number] 2011 Private Health Insurance [employer] [id number] 1955 Unknown [id number] 2.840.1.744807.3.579.2. 627 1955 Unknown [id number] 2.840.1.836574.3.579.2. 627 Unknown [id number] 2.840.1.304244.3.579.2. 462 Unknown [id number] 2.840.1.458977.3.579.2. 462 Unknown [id number] 2.16840.1.555820.3.579.2. 462 Unknown [id number] 2.16840.1.374129.3.579.2. 462 Unknown [id number] 2.840.1.669596.3.579.2. 462 Unknown [id number] 2.16840.1.867520.3.579.2. 462 Unknown [id number] 2.16840.1.704870.3.579.2. 462 Unknown [id number] 2.16.840.1.605953.3.579.2. 462 Unknown [id number] 2.16840.1.482984.3.579.2. 462 Unknown [id number] 2.16840.1.923672.3.579.2. 462 Unknown [id number] 2.840.1.400733.3.579.2. 462 Unknown [id number] 2.840.1.876615.3.579.2. 462 Unknown [id number] 2.840.1.062674.3.579.2. 462 Unknown [id number] 2.840.1.150077.3.579.2. 462 Unknown [id number] 2.840.1.128001.3.579.2. 462 Unknown [id number] 2.840.1.040905.3.579.2. 462 Unknown [id number] 2.840.1.217153.3.579.2. 462 Unknown [id number] 2.840.1.974892.3.579.2. 462 Unknown [id number] 2.840.1.231960.3.579.2. 462 Unknown [id number] 2.840.1.758361.3.579.2. 462 Unknown [id number] 2.840.1.487318.3.579.2. 462 Unknown [id number] 2.16840.1.538962.3.579.2. 462 Unknown [id number] 2.16840.1.856313.3.579.2. 462 Unknown [id number] 2.840.1.860162.3.579.2. 462 Social History Date Type Detail Facility Start: 06-28-2010 End: 12-24-2021 Tobacco smoking status NHIS Ex-smoker [facility] Work Phone: History of tobacco use Cigarette Smoker C [facility] Work Phone: Start: 06-28-2010 End: 12-24-2021 Tobacco use and exposure Smokeless tobacco non[facility]user [facility] Work Phone: Start: 07-04-2021 End: 11-10-2024 Alcohol intake Current non-drinker of alcohol (finding) [facility] Start: 12-06-2019 History SDOH Alcohol Frequency 2 [facility] Start: 12-06-2019 History SDOH Alcohol Std Drinks 98 [facility] Start: 12-06-2019 History SDOH Social Connections Phone 5 [facility] Start: 12-06-2019 History SDOH Social Connections Gnosticism 3 [facility] Start: 12-06-2019 History SDOH Social Connections Membership 1 [facility] Start: 12-06-2019 Education 14 [facility] Start: 06-21-2011 End: 12-24-2021 Tobacco Comment Quit smoking 2008. [facility] Start: 1955 Sex Assigned At Male [facility] Start: 09-13-2020 End: 01-08-2022 Exposure to SARS-CoV-2 (event) Not sure [facility] Start: 12-12-2021 Tobacco smoking status WAIS Unknown if ever smoked [facility] Work Phone: History of tobacco use Current smoker [facility] Work Phone: Start: 12-06-2019 End: 07-04-2023 History of Social function [facility] Start: 12-06-2019 End: 07-04-2023 Social connection and isolation panel [facility] Do you belong to any clubs or organizations such as denominational groups, unions, fraternal or athletic groups, or school groups? Yes [facility] Are you now , , , , never or living with a partner? [facility] How often to you hav e a drink containing alcohol? Monthly or less [facility] Start: 03-15-2012 How many standard drinks containing alcohol do you have on a typical day? Patient refused [facility] Do you feel stress - tense, restless, nervous, or anxious, or unable to sleep at night because your mind is troubled all the time - these days [OSQ] Not at all [facility] (I/We) worried milly er (my/our) food would run out before (I/we) got money to buy more. Never true [facility] In the past 12 month s, was there a time when you were not able to pay the mortgage or rent on time? No [facility] Start: 03-29-2020 Gender identity Identifies as male gender (finding) [facility] Start: 03-29-2020 Sexual orientation Heterosexual (finding) [facility] Start: 02-15-2023 Alcohol intake Current drinker of alcohol (finding) [facility] How many standard dr inks containing alcohol do you have on a typical day? 1 or 2 [facility] How often do you hav e 6 or more drinks on 1 occasion? Never [facility] Start: 02-15-2023 Alcohol Comment rarely socially [facility] Start: 1955 Sex Assigned At Not on file [facility] Start: 08-02-2024 Sex Male (finding) [facility] Functional Status Date Assessment Result Facility 12-01-2023 Functional Status Professional S killed Services Occupational Therapy, Physical Therapy [facility] 12-01-2023 Functional Status Non-Slip footw ear, Room check performed [facility] 12-01-2023 Functional Status Done [facility] 12-01-2023 Functional Status [facility] 12-01-2023 Functional Status [facility] 12-01-2023 Functional Status [facility] 11-30-2023 Functional Status [facility] 11-29-2023 Functional Status [facility] 11-28-2023 Functional Status bilateral knee high david lied/on [facility] 11-28-2023 Functional Status [facility] 11-28-2023 Functional Status Dinner Percent 50 [facility] 11-28-2023 Functional Status [facility] 11-28-2023 Functional Status Min A [facility] 11-27-2023 Functional Status [facility] 11-26-2023 Functional Status Patient Identi fied Identification band [facility] 11-26-2023 Functional Status NPO Status Maintained A [facility] 11-25-2023 Functional Status [facility] 11-25-2023 Functional Status [facility] 11-25-2023 Functional Status [facility] 11-25-2023 Functional Status [facility] 11-25-2023 Functional Status [facility] 11-24-2023 Functional Status [facility] 11-24-2023 Functional Status [facility] 11-24-2023 Functional Status [facility] 11-24-2023 Functional Status Sensory Deficits None A [facility] 06-29-2014 Are you deaf, or do you have serious difficulty hearing No 06/29/2014 3:27 PM Brenna Mcneal MA No [facility] 06-29-2014 Are you blind, or do you have serious difficulty seeing, even when wearing glasses No 06/29/2014 3:27 PM Brenna Mcneal MA No [facility] 06-29-2014 Do you have serious difficulty walking or climbing stairs Yes 06/29/2014 3:27 PM Brenna Mcneal MA Yes [facility] 06-29-2014 Do you have difficul ty dressing or bathing No 06/29/2014 3:27 PM Brenna Mcneal MA No [facility] 06-29-2014 Because of a physica l, mental, or emotional condition, do you have difficulty doing errands alone such as visiting a physician's office or shopping Yes 06/29/2014 3:27 PM Brenna Mcneal MA Yes [facility] Mental Status Date Assessment Result Facility 12-01-2023 Mental Status Oriented x 4 [facility] 12-01-2023 Mental Status [facility] 12-01-2023 Mental Status [facility] 06-29-2014 Because of a physica l, mental, or emotional condition, do you have serious difficulty concentrating, remembering, or making decisions Yes 06/29/2014 3:27 PM Brenna Mcneal MA Yes [facility] Clinical Notes 06-16-2003 to 11-10-2024 Laverne Monroe MD - 11/10/2024 1:38 PM EDTTelephone Encounter - Tello Slaughter PA-C - 10/14/2024 10:30 AM EDTTelephone Encounter - Tello Slaughter PA-C - 10/14/2024 10:30 AM EDT Note Date & Type Note Facility 11-10-2024 Note HNO ID: [id number] Author: LAVERNE MONROE MD Service: ? Author Type: Physician Type: Progress Notes Filed: 11/12/2024 11:59 Note Text: Juanita Jay is a 69 year old male here for a Medicare wellness visit. Juanita Jay is a 69-year-old male with a history of MS, CAD s/p CABG, and depression, presenting for an annual wellness visit. Annual Wellness Exam: - Last seen 5 years ago. - No recent colonoscopy; last performed over [address] Chu. - Denies any recent dermatological evaluations. - Has a living will. - Enjoys spending time outdoors, including trips to [place] in the winter. - Family history: Father lived to 93 years old. Multiple Sclerosis: - Managed by the [facility]. - Currently on Tecfidera; reports feeling well overall. - Experiencing balance issues, with a few minor falls. - Engages in physical therapy, swimming, and biking at [facility] to maintain leg strength. - Able to perform household tasks independently. 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 Coronary Artery Disease: - Experienced left arm pain while sitting in a recliner about a year ago, leading to hospitalization. - Underwent cardiac catheterization and subsequent CABG at [facility] by Dr. Hernandez. - Currently on Plavix. - No recent follow-up with pulling unit operator Dr. Petersen. Atrial Fibrillation: - Developed during hospitalization for CAD. - Temporarily managed with amiodarone; no longer on medication. Depression: - Managed with an antidepressant, currently taking 40 mg. - Reports feeling well and is open to reducing the dosage. Seizure Disorder: - Last seizure occurred before MS diagnosis. - Managed with Zonisamide. Medicare Health Risk Assessment General Health Fair Exercise: Minutes/Day 20 min Exercise: Days/Week 3 days Alcohol: Daily Use Monthly or less Alcohol: Drinks/Day 1 or 2 Alcohol: 6 or more drinks Never Feel off balance Yes Concerns: Teeth/Dentures No Concerns: Sexual function Decline Troubled by feelings Anxious; Irritable Frequency: Eating healthy diet Several days ADLs requiring help None of the above Safety precautions in home/vehicle Yes Smoke, vape, chews tobacco No Difficulty hearing No Difficulty seeing No Current Providers Specialists: I have reviewed specialist-related care of the patient in the medical record. Medical/Family history review Reviewed and updated problem list, medical/surgical/family/social history, medications, and allergies. Current Outpatient Medications Medication Sig tiZANidine (ZANAFLEX) 2 mg tablet TAKE 1 TABLET BY MOUTH EVERYDAY AT BEDTIME dimethyl fumarate (TECFIDERA) [address] Take 1 capsule by mouth two times a day. atorvastatin (LIPITOR) 80 mg tablet Take 80 mg by mouth once daily. Take 1 tablet by mouth at night clopidogrel (PLAVIX) 75 mg tablet Take 75 mg by mouth once daily. zonisamide (ZONEGRAN) 100 mg capsule Take 200 mg am and 300 mg pm citalopram (CELEXA) 20 mg tablet Take 1 tablet by mouth once daily. peg 3350-Electrolytes (GOLYTELY) 236-22.74-6.74 -5.86 gram suspension Refer to printed prep instructions from your provider. No current facility-administered medications for this visit. Opioid use review Opioid Medications (last 90 days) No data to display Neurological: (+) balance difficulty, (+) falls, (-) seizures Hematologic/Lymphatic: (+) easy bleeding/bruising Anxiety/Depression screening YOLANDA-7 Score: 5 (Mild Anxiety) Recommendation: no further intervention at this time Cognitive screening Mini Cog Score: 5 Cognitive screening reviewed and No further action needed (score 3-5). Functional Observation Was the patient's Timed Up AND Go test unsteady or >= 12 seconds? No Advance Care Planning Surrogate decision maker and/or advance care plan documented Measurements BP 111/68 Pulse 62 Ht 182.9 cm (6') Wt 78.5 kg (173 lb) SpO2 98% BMI 23.46 kg/m? General: Well-nourished, well-developed, no acute distress. Skin: Actinic damage noted. Regular rate and rhythm. S1 and S2 normal, no murmurs, clicks, gallops or rubs. No edema or JVD. Chest is clear; no wheezes or rales. Couple innocuous bruises noted, <1 cm Assessment/Plan 1. Medicare annual wellness visit, initial (Z00.00) - Completed Medicare annual wellness visit. - Discussed importance of annual visits; patient agrees to follow-up yearly. - Reviewed living will status; patient to provide copy for records. 2. Seizure (HCC) (R56.9) - No seizures since prior to MS diagnosis. - Continue Zonisamide as prescribed. 3. MS (multiple sclerosis) (HCC) (G35) 4. Balance problem (R26.89) - Ongoing care at the [facility]; on Tecfidera with good response. - Mild balance issues with occasional minor falls; no major injuries. - Engages in regular physical activity (swimming, biking, walking) to maintain strength. 5. Coronary artery disease involving morongo blount (more content not included)... [facility] 11-10-2024 History of Presen t illness Narrative Images from the original note were not included. Juanita Jay is a 69 year old male here for a Medicare wellness visit. Juanita Jay is a 69-year-old male with a history of MS, CAD s/p CABG, and depression, presenting for an annual wellness visit. Annual Wellness Exam: - Last seen 5 years ago. - No recent colonoscopy; last performed over [address] Chu. - Denies any recent dermatological evaluations. - Has a living will. - Enjoys spending time outdoors, including trips to [place] in the winter. - Family history: Father lived to 93 years old. Multiple Sclerosis: - Managed by the [facility]. - Currently on Tecfidera; reports feeling well overall. - Experiencing balance issues, with a few minor falls. - Engages in physical therapy, swimming, and biking at [facility] to maintain leg strength. - Able to perform household tasks independently. 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 Coronary Artery Disease: - Experienced left arm pain while sitting in a recliner about a year ago, leading to hospitalization. - Underwent cardiac catheterization and subsequent CABG at [facility] by Dr. Hernandez. - Currently on Plavix. - No recent follow-up with pulling unit operator Dr. Petersen. Atrial Fibrillation: - Developed during hospitalization for CAD. - Temporarily managed with amiodarone; no longer on medication. Depression: - Managed with an antidepressant, currently taking 40 mg. - Reports feeling well and is open to reducing the dosage. Seizure Disorder: - Last seizure occurred before MS diagnosis. - Managed with Zonisamide. Medicare Health Risk Assessment General Health Fair Exercise: Minutes/Day 20 min Exercise: Days/Week 3 days Alcohol: Daily Use Monthly or less Alcohol: Drinks/Day 1 or 2 Alcohol: 6 or more drinks Never Feel off balance Yes Concerns: Teeth/Dentures No Concerns: Sexual function Decline Troubled by feelings Anxious; Irritable Frequency: Eating healthy diet Several days ADLs requiring help None of the above Safety precautions in home/vehicle Yes Smoke, vape, chews tobacco No Difficulty hearing No Difficulty seeing No Current Providers Specialists: I have reviewed specialist-related care of the patient in the medical record. Medical/Family history review Reviewed and updated problem list, medical/surgical/family/social history, medications, and allergies. Current Outpatient Medications Medication Sig tiZANidine (ZANAFLEX) 2 mg tablet TAKE 1 TABLET BY MOUTH EVERYDAY AT BEDTIME dimethyl fumarate (TECFIDERA) [address] Take 1 capsule by mouth two times a day. atorvastatin (LIPITOR) 80 mg tablet Take 80 mg by mouth once daily. Take 1 tablet by mouth at night clopidogrel (PLAVIX) 75 mg tablet Take 75 mg by mouth once daily. zonisamide (ZONEGRAN) 100 mg capsule Take 200 mg am and 300 mg pm citalopram (CELEXA) 20 mg tablet Take 1 tablet by mouth once daily. peg 3350-Electrolytes (GOLYTELY) 236-22.74-6.74 -5.86 gram suspension Refer to printed prep instructions from your provider. No current facility-administered medications for this visit. Opioid use review Opioid Medications (last 90 days) No data to display Neurological: (+) balance difficulty, (+) falls, (-) seizures Hematologic/Lymphatic: (+) easy bleeding/bruising Anxiety/Depression screening YOLANDA-7 Score: 5 (Mild Anxiety) Recommendation: no further intervention at this time Cognitive screening Mini Cog Score: 5 Cognitive screening reviewed and No further action needed (score 3-5). Functional Observation Was the patient's Timed Up & Go test unsteady or >= 12 seconds? No Advance Care Planning Surrogate decision maker and/or advance care plan documented Measurements BP 111/68 Pulse 62 Ht 182.9 cm (6') Wt 78.5 kg (173 lb) SpO2 98% BMI 23.46 kg/m General: Well-nourished, well-developed, no acute distress. Skin: Actinic damage noted. Regular rate and rhythm. S1 and S2 normal, no murmurs, clicks, gallops or rubs. No edema or JVD. Chest is clear; no wheezes or rales. Couple innocuous bruises noted, <1 cm Assessment/Plan 1. Medicare annual wellness visit, initial (Z00.00) - Completed Medicare annual wellness visit. - Discussed importance of annual visits; patient agrees to follow-up yearly. - Reviewed living will status; patient to provide copy for records. 2. Seizure (HCC) (R56.9) - No seizures since prior to MS diagnosis. - Continue Zonisamide as prescribed. 3. MS (multiple sclerosis) (HCC) (G35) 4. Balance problem (R26.89) - Ongoing care at the [facility]; on Tecfidera with good response. - Mild balance issues with occasional minor falls; no major injuries. - Engages in regular physical activity (swimming, biking, walking) to maintain strength. 5. 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 S/P CABG x 2 (Z95.1) - Reviewed cardiology notes from Dr. Carrillo. - S/P CABG x2 (WILLETT to LAD, reversed saphenous vein graft to D1) performed by Dr. Hernandez at [facility] in [place]. - Previously on amiodarone for post-op AFib, now discontinued. - Continue clopidogrel; advised patient to consult Dr. Bernal regarding possible discontinuation after one year. - Patient educated on bleeding risks with clopidogrel. - Advised follow-up with cardiology. 7. Acute gastric ulcer with hemorrhage (K25.0) 8. Anemia, blood loss (D50.0) - History of bleeding ulcer last year, likely due to excessive Aleve use. - Recent anemia noted in August; no current symptoms. - Order CBC and iron studies to reassess anemia. 9. Screening for colon cancer (Z12.11) - No colonoscopy in over 10 years; last performed by Dr. Chu. - Referred for colonoscopy with Dr. Michele at [place]. 10. Screening for prostate cancer (Z12.5) - Order PSA test. 11. Encounter for immunization (Z23) - Administered pneumococcal vaccine; educated patient on potential for mild sore arm. - Advised second dose in one year. 12. Screening for abdominal aortic aneurysm (Z13.6) - Order abdominal ultrasound to screen for AAA. Office Visit on 11/10/24 ADVANCE CARE PLAN DISCUSSION US SCREENING FOR AAA PNEUMOCOCCAL VACCINE, 20 VALENT (PREVNAR 20) PSA/PROSTATE SPECIFIC ANTIGEN SCREENING COMPLETE BLOOD COUNT IRON AND TIBC COLONOSCOPY DIAGNOSTIC Requested Prescriptions Signed Prescriptions Disp Refills citalopram (CELEXA) 20 mg tablet 90 tablet 0 Sig: Take 1 tablet by mouth once daily. peg 3350-Electrolytes (GOLYTELY) 236-22.74-6.74 -5.86 gram suspension 4000 mL 0 Sig: Refer to printed prep instructions from your provider. RTO few months. Laverne Monroe MD documented in this encounter [facility] 10-20-2024 Note HNO ID: [id number] Author: WILMA JASSO MA Service: ? Author Type: Gem Setter Type: Progress Notes Filed: 10/20/2024 13:42 Note Text: POPULATION HEALTH NAVIGATION OUTREACH Action/PHILLIP Oglesby called to get a sooner appt. His appointment has been moved November 10 Topic Due (Y or N) Comments Medicare Wellness y PCP Follow up Colorectal Cancer Screening y Controlling Blood Pressure A1C HCC y Flu Vaccine Care Everywhere Reviewed MyChart Activation Updated Appointment Note Reason for Outreach Care Gap/HCC or Scheduling Wellness Visits Care Gaps due: Medicare Annual Wellness Visit Colorectal Cancer Screening Patient Contacted: Spoke to patient/parent/or legal guardian Patient identified by name and : Yes Care Gap/HCC/Scheduling Wellness actions taken: Patient scheduled/pended orders: Medicare Annual Wellness Visit 11/10/2024 in [facility] with LAVERNE MONROE - MEDICARE WELLNESS, COLONOSCOPY 02/21/2025 in [facility] with MRI [facility] (I-STAT/1.5T) - ..MRI BRAIN WO/W IVCON 02/24/2025 in [facility] with TELLO SLAUGHTER - , follow up HCC related Navigation Signature: Wilma Jasso MA October 20, 2024 1:38 PM [facility] 10-14-2024 Telephone encounter Note The following approved medication requests have been transmitted electronically. Requested Prescriptions Signed Prescriptions Disp Refills tiZANidine (ZANAFLEX) 2 mg tablet 90 tablet 0 Sig: TAKE 1 TABLET BY MOUTH EVERYDAY AT BEDTIME Authorizing Provider: TELLO SLAUGHTER PA-C [facility] 10-14-2024 Miscellaneous Notes The following approved medication requests have been transmitted electronically. Requested Prescriptions Signed Prescriptions Disp Refills tiZANidine (ZANAFLEX) 2 mg tablet 90 tablet 0 Sig: TAKE 1 TABLET BY MOUTH EVERYDAY AT BEDTIME Authorizing Provider: TELLO LSAUGHTER PA-C Source : electronic from pharmacy requesting refill. Delivery : e-script Requested Prescriptions Pending Prescriptions Disp Refills tiZANidine (ZANAFLEX) 2 mg tablet [Pharmacy Med Name: TIZANIDINE HCL 2 MG TABLET] 90 tablet 0 Sig: TAKE 1 TABLET BY MOUTH EVERYDAY AT BEDTIME DX : Patient last seen 08/19/2024 Next Appointment : 02/24/2025 MELLY Guidry documented in this encounter [facility] 10-13-2024 Telephone encounter Note Source : electronic from pharmacy requesting refill. Delivery : e-script Requested Prescriptions Pending Prescriptions Disp Refills tiZANidine (ZANAFLEX) 2 mg tablet [Pharmacy Med Name: TIZANIDINE HCL 2 MG TABLET] 90 tablet 0 Sig: TAKE 1 TABLET BY MOUTH EVERYDAY AT BEDTIME DX : Patient last seen 08/19/2024 Next Appointment : 02/24/2025 MELLY Guidry [facility] 10-13-2024 Telephone encounter Note The following approved medication requests have been transmitted electronically. Requested Prescriptions Signed Prescriptions Disp Refills citalopram (CELEXA) 40 mg tablet 90 tablet 1 Sig: TAKE 1 TABLET BY MOUTH EVERY DAY Authorizing Provider: TELLO SLAUGHTER PA-C [facility] 10-13-2024 Miscellaneous Notes The following approved medication requests have been transmitted electronically. Requested Prescriptions Signed Prescriptions Disp Refills citalopram (CELEXA) 40 mg tablet 90 tablet 1 Sig: TAKE 1 TABLET BY MOUTH EVERY DAY Authorizing Provider: TELLO SLAUGHTER PA-C Source : electronic from pharmacy requesting refill. Delivery : e-script Requested Prescriptions Pending Prescriptions Disp Refills citalopram (CELEXA) 40 mg tablet [Pharmacy Med Name: CITALOPRAM HBR 40 MG TABLET] 90 tablet 0 Sig: TAKE 1 TABLET BY MOUTH EVERY DAY DX : Patient last seen 08/19/2024 Next Appointment : 02/24/2025 MELLY Guidry documented in this encounter [facility] 10-13-2024 Telephone encounter Note Source : electronic from pharmacy requesting refill. Delivery : e-script Requested Prescriptions Pending Prescriptions Disp Refills citalopram (CELEXA) 40 mg tablet [Pharmacy Med Name: CITALOPRAM HBR 40 MG TABLET] 90 tablet 0 Sig: TAKE 1 TABLET BY MOUTH EVERY DAY DX : Patient last seen 08/19/2024 Next Appointment : 02/24/2025 MELLY Guidry [facility] 09-30-2024 Note HNO ID: [id number] Author: WILMA JASSO MA Service: ? Author Type: Gem Setter Type: Progress Notes Filed: 09/30/2024 10:07 Note Text: POPULATION HEALTH NAVIGATION OUTREACH Action/FYI Topic Due (Y or N) Comments Medicare Wellness Y PCP Follow up Colorectal Cancer Screening Controlling Blood Pressure A1C HCC Y Flu Vaccine Care Everywhere Reviewed MyChart Activation Updated Appointment Note Reason for Outreach Returned Call/MyChart Patient Contacted: Spoke to patient/parent/or legal guardian Patient identified by name and date of : Yes Returned call/MyChart actions taken: Patient scheduled/pended orders: Medicare Annual Wellness Visit 01/18/2025 in [facility] with LAVERNE MONROE - MEDICARE WELLNESS, COLONOSCOPY 02/21/2025 in [facility] with MRI [facility] (I-STAT/1.5T) - ..MRI BRAIN WO/W IVCON 02/24/2025 in [facility] with TELLO SLAUGHTER ms , follow up Navigation Signature: Wilma Jasso MA September 30, 2024 10:05 AM [facility] 09-30-2024 History of Presen t illness Narrative POPULATION HEALTH NAVIGATION OUTREACH Action/FYI Topic Due (Y or N) Comments Medicare Wellness Y PCP Follow up Colorectal Cancer Screening Controlling Blood Pressure A1C HCC Y Flu Vaccine Care Everywhere Reviewed MyChart Activation Updated Appointment Note Reason for Outreach Returned Call/MyChart Patient Contacted: Spoke to patient/parent/or legal guardian Patient identified by name and date of : Yes Returned call/MyChart actions taken: Patient scheduled/pended orders: Medicare Annual Wellness Visit 01/18/2025 in [facility] with LAVERNE MONROE - MEDICARE WELLNESS, COLONOSCOPY 02/21/2025 in [facility] with MRI [facility] (I-STAT/1.5T) - ..MRI BRAIN WO/W IVCON 02/24/2025 in [facility] with TELLO SLAUGHTER ms , follow up Navigation Signature: Wilma Jasso MA September 30, 2024 10:05 AM POPULATION HEALTH NAVIGATION OUTREACH Action/FYI [facility] MYCHART MESSAGE Topic Due (Y or N) Comments Medicare Wellness y PCP Follow up Colorectal Cancer Screening Controlling Blood Pressure A1C HCC Y Flu Vaccine Care Everywhere Reviewed MyChart Activation Updated Appointment Note Reason for Outreach Care Gap/HCC or Scheduling Wellness Visits Care Gaps due: Medicare Annual Wellness Visit Patient Contacted: Unable or unnecessary to reach patient: Left message MyChart message sent HCC related Navigation Signature: Wilma Jasso MA September 30, 2024 9:14 AM documented in this encounter [facility] 09-30-2024 Note HNO ID: [id number] Author: WILMA JASSO MA Service: ? Author Type: Gem Setter Type: Progress Notes Filed: 09/30/2024 09:19 Note Text: POPULATION HEALTH NAVIGATION OUTREACH Action/FYI [facility] MYCHART MESSAGE Topic Due (Y or N) Comments Medicare Wellness y PCP Follow up Colorectal Cancer Screening Controlling Blood Pressure A1C HCC Y Flu Vaccine Care Everywhere Reviewed MyChart Activation Updated Appointment Note Reason for Outreach Care Gap/HCC or Scheduling Wellness Visits Care Gaps due: Medicare Annual Wellness Visit Patient Contacted: Unable or unnecessary to reach patient: Left message MyChart message sent HCC related Navigation Signature: Wilma Jasso MA September 30, 2024 9:14 AM [facility] 09-30-2024 Note Patient Outreach (NE TNAV) JUANITA JAY ([id number]) 1955 M Date Time Provider Department 09/30/24 WILMA JASSO During your visit today, we recorded the following information about you: Wilma Jasso MA 09/30/2024 9:19 AM Signed POPULATION HEALTH NAVIGATION OUTREACH Action/FYI LVM MYCHART MESSAGE Topic Due (Y or N) Comments Medicare Wellness y PCP Follow up Colorectal Cancer Screening Controlling Blood Pressure A1C HCC Y Flu Vaccine Care Everywhere Reviewed MyChart Activation Updated Appointment Note Reason for Outreach Care Gap/HCC or Scheduling Wellness Visits Care Gaps due: Medicare Annual Wellness Visit Patient Contacted: Unable or unnecessary to reach patient: Left message MyChart message sent HCC related Navigation Signature: Wilma Jasso MA September 30, 2024 9:14 AM Wilma Jasso MA 09/30/2024 10:07 AM Signed POPULATION HEALTH NAVIGATION OUTREACH Action/FYI Topic Due (Y or N) Comments Medicare Wellness Y PCP Follow up Colorectal Cancer Screening Controlling Blood Pressure A1C HCC Y Flu Vaccine Care Everywhere Reviewed MyChart Activation Updated Appointment Note Reason for Outreach Returned Call/MyChart Patient Contacted: Spoke to patient/parent/or legal guardian Patient identified by name and date of : Yes Returned call/MyChart actions taken: Patient scheduled/pended orders: Medicare Annual Wellness Visit 01/18/2025 in [facility] with [facility] [place] WELLNESS, COLONOSCOPY 02/21/2025 in [facility] with MRI [facility] (I-STAT/1.5T) - ..MRI BRAIN WO/W IVCON 02/24/2025 in [facility] with TELLO SLAUGHTER - , follow up Navigation Signature: Wilma Jasso MA September 30, 2024 10:05 AM Wilma Jasso MA 10/20/2024 1:42 PM Signed POPULATION HEALTH NAVIGATION OUTREACH Action/FYI Juanita called to get a sooner appt. His appointment has been moved November 10 Topic Due (Y or N) Comments Medicare Wellness y PCP Follow up Colorectal Cancer Screening y Controlling Blood Pressure A1C HCC y Flu Vaccine Care Everywhere Reviewed MyChart Activation Updated Appointment Note Reason for Outreach Care Gap/HCC or Scheduling Wellness Visits Care Gaps due: Medicare Annual Wellness Visit Colorectal Cancer Screening Patient Contacted: Spoke to patient/parent/or legal guardian Patient identified by name and : Yes Care Gap/HCC/Scheduling Wellness actions taken: Patient scheduled/pended orders: Medicare Annual Wellness Visit 11/10/2024 in [facility] with [facility] [place] [employer] WELLNESS, COLONOSCOPY 02/21/2025 in [facility] with MRI [facility] (I-STAT/1.5T) - ..MRI BRAIN WO/W IVCON 02/24/2025 in [facility] [place] with TELLO SLAUGHTER - ms , follow up HCC related Navigation Signature: Wilma Jasso MA October 20, 2024 1:38 PM Allergies As of Date: 09/30/2024 Noted Allergy Reaction CARBAMAZEPINE 10/22/2011 2 - Rash 14 - Other: See Comments Comments: Acute urinary retention Date Reviewed: 08/19/2024 Reviewed by: Grant Melgar OCCA - Fully Assessed Reason for Visit: Population Health Navigation Outreach [3910] Cmt: ACO WORKBENCH HANG PCSA Prescriptions as of 10/20/2024 - tiZANidine (ZANAFLEX) 2 mg tablet TAKE 1 TABLET BY MOUTH EVERYDAY AT BEDTIME - citalopram (CELEXA) 40 mg tablet TAKE 1 TABLET BY MOUTH EVERY DAY - dimethyl fumarate (TECFIDERA) [address] Take 1 capsule by mouth two times a day. - atorvastatin (LIPITOR) 80 mg tablet Take 80 mg by mouth once daily. Take 1 tablet by mouth at night - clopidogrel (PLAVIX) 75 mg tablet Take 75 mg by mouth once daily. - zonisamide (ZONEGRAN) 100 mg capsule Take 200 mg am and 300 mg pm Problem List As Of Date 09/30/2024 Noted Resolved Multiple sclerosis (HCC) [G35] 06/16/2003 HEMATURIA NOS [R31.9] 02/08/2008 MS (Multiple Sclerosis) [G35] 07/03/2009 Seizure [R56.9] 05/21/2011 Special screening for malignant neoplasms, colo*07/23/2011 Examination of participant or control in clinic*09/13/2011 Imbalance [R26.89] 09/26/2013 Abnormality of gait [R26.9] 09/26/2013 Adjustment disorder with mixed anxiety and depr*02/26/2018 Seizures (HCC) [R56.9] Leg weakness, bilateral [R29.898] 08/15/2021 Encounter Status:Closed by WILMA JASSO on 09/30/24 [facility] 09-08-2024 Note HNO ID: [id number] Author: WILMA JASSO MA Service: ? Author Type: Gem Setter Type: Progress Notes Filed: 09/08/2024 13:19 Note Text: POPULATION HEALTH NAVIGATION OUTREACH Action/FYI LVM MYCHART MESSAGE SENT Topic Due (Y or N) Comments Medicare Wellness y PCP Follow up Colorectal Cancer Screening y Controlling Blood Pressure A1C HCC y Flu Vaccine Care Everywhere Reviewed MyChart Activation Updated Appointment Note Reason for Outreach Care Gap/HCC or Scheduling Wellness Visits Care Gaps due: Medicare Annual Wellness Visit Colorectal Cancer Screening Patient Contacted: Unable or unnecessary to reach patient: Left message MyChart message sent HCC related Navigation Signature: Wilma Jasso MA September 08, 2024 12:58 PM [facility] 09-08-2024 History of Presen t illness Narrative POPULATION HEALTH NAVIGATION OUTREACH Action/FYI LVM MYCHART MESSAGE SENT Topic Due (Y or N) Comments Medicare Wellness y PCP Follow up Colorectal Cancer Screening y Controlling Blood Pressure A1C HCC y Flu Vaccine Care Everywhere Reviewed MyChart Activation Updated Appointment Note Reason for Outreach Care Gap/HCC or Scheduling Wellness Visits Care Gaps due: Medicare Annual Wellness Visit Colorectal Cancer Screening Patient Contacted: Unable or unnecessary to reach patient: Left message MyChart message sent HCC related Navigation Signature: Wilma Jasso MA September 08, 2024 12:58 PM documented [facility] 09-08-2024 Note Patient Outreach (NE TNAV) JUANITA JAY ([id number]) 1955 M Date Time Provider Department 09/08/24 WILMA JASSO During your visit today, we recorded the following information about you: Wilma Jasso MA 09/08/2024 1:19 PM Signed POPULATION HEALTH NAVIGATION OUTREACH Action/I LV MYCHART MESSAGE SENT Topic Due (Y or N) Comments Medicare Wellness y PCP Follow up Colorectal Cancer Screening y Controlling Blood Pressure A1C HCC y Flu Vaccine Care Everywhere Reviewed MyChart Activation Updated Appointment Note Reason for Outreach Care Gap/HCC or Scheduling Wellness Visits Care Gaps due: Medicare Annual Wellness Visit Colorectal Cancer Screening Patient Contacted: Unable or unnecessary to reach patient: Left message MyChart message sent HCC related Navigation Signature: Wilma Jasso MA September 08, 2024 12:58 PM Allergies As of Date: 09/08/2024 Noted Allergy Reaction CARBAMAZEPINE 10/22/2011 2 - Rash 14 - Other: See Comments Comments: Acute urinary retention Date Reviewed: 08/19/2024 Reviewed by: Grant Melgar OCCA - Fully Assessed Reason for Visit: Population Health Navigation Outreach [3910] Cmt: ACO WORKBEZEKE MAURICIO PCSA Prescriptions as of 09/08/2024 - dimethyl fumarate (TECFIDERA) [address] Take 1 capsule by mouth two times a day. - tiZANidine (ZANAFLEX) 2 mg tablet TAKE 1 TABLET BY MOUTH EVERYDAY AT BEDTIME - citalopram (CELEXA) 40 mg tablet TAKE 1 TABLET BY MOUTH EVERY DAY - atorvastatin (LIPITOR) 80 mg tablet Take 80 mg by mouth once daily. Take 1 tablet by mouth at night - clopidogrel (PLAVIX) 75 mg tablet Take 75 mg by mouth once daily. - zonisamide (ZONEGRAN) 100 mg capsule Take 200 mg am and 300 mg pm Problem List As Of Date 09/08/2024 Noted Resolved Multiple sclerosis (HCC) [G35] 06/16/2003 HEMATURIA NOS [R31.9] 02/08/2008 MS (Multiple Sclerosis) [G35] 07/03/2009 Seizure [R56.9] 05/21/2011 Special screening for malignant neoplasms, colo*07/23/2011 Examination of participant or control in clinic*09/13/2011 Imbalance [R26.89] 09/26/2013 Abnormality of gait [R26.9] 09/26/2013 Adjustment disorder with mixed anxiety and depr*02/26/2018 Seizures (HCC) [R56.9] Leg weakness, bilateral [R29.898] 08/15/2021 Encounter Status:Closed by WILMA JASSO on 09/08/24 [facility] 08-19-2024 Note HNO ID: [id number] Author: IZZY MENDOZA Research Coordinator Service: ? Author Type: Research Type: Progress Notes Filed: 08/19/2024 13:40 Note Text: IRB [id number]. Autoimmune neurological disorders Clinical Research Biobank Laborer Carpentry Dock: Dr. Deanne Vickers (phone: [phone]) Project Management Consultant: Nathalia Perez (phone: [phone]) Contacted patient to discuss participation in the Autoimmune neurological disorders [facility] Research Biobank. Spoke with patient in-person and patient stated that they would like time to consider participation. Izzy Mendoza, Research Coordinator [facility] 08-19-2024 History of Presen t illness Narrative IRB [id number]. Autoimmune neurological disorders Clinical Research Biobank Laborer Carpentry Dock: Dr. Deanne Vickers (phone: [phone]) Project Management Consultant: Nathalia Perez (phone: [phone]) Contacted patient to discuss participation in the Autoimmune neurological disorders [facility] Biobank. Spoke with patient in-person and patient stated that they would like time to consider participation. Izzy Mendoza Research Coordinator documented in this encounter [facility] 08-19-2024 Note HNO ID: [id number] Author: IZZY MENDOZA Research Vaughn Service: ? Author Type: Research Type: Progress Notes Filed: 08/19/2024 12:50 Note Text: Labs Drawn [facility] 08-19-2024 History of Presen t illness Narrative Labs Drawn documented in this encounter [facility] 08-19-2024 History of Presen t illness Narrative Images from the original note were not included. [facility] MULTIPLE SCLEROSIS FOLLOWUP/ESTABLISHED PATIENT VISIT Principal Neurologic Diagnosis: Multiple Sclerosis HISTORY OF ILLNESS HEADER: Date of onset: 10/29/2002 Date of diagnosis: 03/2003 Disease course from Onset: Exacerbating/Remitting Disease course last year: Exacerbating/Remitting Current MS Disease Therapy: Tecfidera (started 03/2007 for research trial, commercial drug started 11/2017) Previous MS Disease Therapies: Avonex (04/2003--10/2006; breakthrough on MRI) Last MRI: 08/05/23 CHIEF COMPLAINT: Follow-up on MS disease modifying therapy INTERVAL HISTORY: Usual treating team: Can/Denilson The patient is accompanied by son and . The patient was last seen 02/05/24, currently taking dimethyl fumarate . Since the patient's last visit the patient reports overall feeling stable. Granddaughter got Went to [place] in May, had a pain epigastric area - went to hospital and they did scope - had a bleeding ulcer - cauterized the bleed - hospitalized for 5 days - stopped the Aleve/Excedrin (source of the ulcer) Got new glasses after home from [place] Stubbed toe - tripped and fell and broke glasses - poked right eye with stem of glasses and caused black eye on right Saw cardiology 1 week ago at [facility] [place] - said all looked okay - metoprolol on hold x 6 months Denies seizure activity Denies new MS symptoms - balance gradually worse Started going back to the gym and riding bike again SUBJECTIVE & REVIEW OF SYSTEMS: Neuro-QoL Functions (higher=better functioning) Flowsheet Row Office Visit from 08/19/2024 in [facility] Office Visit from 07/09/2022 in [facility] Office Visit from 01/08/2022 in [facility] Upper Extremity Domain T Score 43.47 48.65 46 Lower Extremity Domain T Score 36.12 34.28 37 Cognitive Function Domain T Score 49.89 47.66 49 Positive Affect Well Being T Score -- -- -- Ability To Participate In Social Roles T Score 44.12 41.16 42 Satisfaction With Social Roles T Score 39.83 62.19 45 Neuro-QoL Symptoms (higher=worse symptoms) Flowsheet [facility] Office Visit from 08/19/2024 in [facility] Office Visit from 07/09/2022 in [facility] Office Visit from 01/08/2022 in [facility] Sleep Domain T Score 51.07 52.89 48 Fatigue Domain T Score 39.32 47.6 49 Anxiety Domain T Score 41.05 43.16 46 Depression Domain T Score 44.02 48.71 48 Stigma Domain T Score 55.76 58.45 45 Emotional Behavior Dyscontrol T Score -- -- -- *NeuroQoL is a multi-domain patient-reported quality of life questionnaire. PHQ-9 Flowsheet Row Office Visit from 07/04/2023 in Neurology Office Visit from 04/03/2022 in Neurology PHQ-9 Score 4 2 *PHQ-9 is a questionnaire for depressive symptoms, with scores 0-4 indicating none, 5-9 mild, 10-14 moderate, 15-19 moderately severe, and 20-27 severe symptoms. PROMIS-10 Flowsheet Row Office Visit from 07/04/2023 in Neurology Office Visit from 01/08/2022 in [facility] Global Physical Health T Score 34.9 42.3 Global Mental Health T Score 41.1 48.3 0-10 Standard Pain Scale 3 3 *PROMIS-10 is a patient-reported quality of life measure, typically reported as physical and mental domains. Here scores are expressed as percentiles, where the lowest possible score is one, the highest possible score is 99, and 50 is average. Refer to patient-entered data. Mood: PHQ9 responses reviewed and appear below Pain related to today's visit:reviewed on nursing intake documentation PAST HISTORY was reviewed and updated: PAST MEDICAL HISTORY Diagnosis Date Leptospirosis ~1991 MS (multiple sclerosis) (HCC) 2007 Seizures (HCC) PAST SURGICAL HISTORY Procedure Laterality Date PARTIAL SPLENECTOMY PAST SURGICAL HISTORY OF 1973 Splenectomy [place] [facility] post trauma MEDICATIONS and ALLERGIES were reviewed and updated. SOCIAL HISTORY was reviewed and updated: Social History Tobacco Use Smoking status: Former Types: Cigarettes Smokeless tobacco: Never Tobacco comments: Quit smoking 2008. Living situation: Living at home with assistance Employment Status / Disability: Retired OBJECTIVE: VITALS & WELLNESS: BP 117/63 (BP Site: Left Arm, BP Position: Sitting, BP Cuff Size: Large Adult) Pulse 90 Ht 182.9 cm (6') Wt 78.5 kg (173 lb) BMI 23.46 kg/m MSPT Results Flowsheet [facility] Office Visit from 08/19/2024 in [facility] Office Visit from 07/09/2022 in [facility] Office Visit from 01/08/2022 in [facility] Processing Speed Total Number Correct 35 34 31 Processing Speed Z score 0.05 -0.16 -0.49 Dominant hand -- -- -- MDT Left Hand Time -- 31.96 33.52 MDT Right Hand Time -- 32.59 30.53 Walking Speed Test (25 feet) -- 9.74 8.56 Memory Z Score -- -- -- EXAM: Refer to patient-entered performance data RESULTS: Monitoring labs: LFTs 07/27/24 WNL Discrete MRI Results Component Value Date Brain New T2 Lesions None Site 08/05/2023 Brain Enhancing Lesions None 08/05/2023 ASSESSMENT/PLAN: Juanita Jay is a 69 year old male with Multiple Sclerosis. Patient is on DMF for DMT. Will get labs today. Will send Rx to [employer] to attempt to make DMF more affordable. Recommend updated brain MRI in about 6 months. MRI of the brain and/or spinal cord is being ordered to evaluate for efficacy of multiple sclerosis (MS) disease modifying therapy. Disease activity in MS is often not immediately detectable on history or examination, but is sensitively identified on MRI. If identified, new or active MS lesions on MRI may represent suboptimal response to MS therapy, and would change medical management. Rx for PT provided for stretching/balance training. Continue to follow with PCP/cardiology as directed. Reports resolution of epigastric pain/ulcer. Discussed DMF can be GI irritating so will continue to monitor closely. Exam is:Stable, continue with current IMDT. The prescribed disease modifying therapy for MS is having the expected benefit in this patient based on imaging and clinical criteria, and will be continued or refilled, with planned follow-up at approximately 6-month intervals to continue to assess response on an ongoing basis. Patient Health Education Discussed at Visit: Aerobic exercise, Emotional Health/Wellness, Risks and Common side effects of MS medications, and Stretching Follow-up: In 6 months at [facility] or sooner if needed I spent a total of 45 minutes on the date of the service which included preparing to see the patient, [id number] patient care, completing clinical documentation, obtaining and/or reviewing separately obtained history, performing a medically appropriate examination, counseling and educating the patient/family/caregiver, and communicating results to the patient/family/caregiver. Tello Slaughter PA-C The chart was reviewed for possible participation in the following studies:biobank documented in this encounter [facility] 08-19-2024 Note HNO ID: [id number] Author: TELLO SLAUGHTER PA-C Service: ? Author Type: Physician Borough Coordinator Type: Progress Notes Filed: 08/19/2024 12:26 Note Text: [facility] FOR MULTIPLE SCLEROSIS FOLLOWUP/ESTABLISHED PATIENT VISIT Principal Neurologic Diagnosis: Multiple Sclerosis HISTORY OF ILLNESS HEADER: Date of onset: 10/29/2002 Date of diagnosis: 03/2003 Disease course from Onset: Exacerbating/Remitting Disease course last year: Exacerbating/Remitting Current MS Disease Therapy: Tecfidera (started 03/2007 for research trial, commercial drug started 11/2017) Previous MS Disease Therapies: Avonex (04/2003--10/2006; breakthrough on MRI) Last MRI: 08/05/23 CHIEF COMPLAINT: Follow-up on MS disease modifying therapy INTERVAL HISTORY: Usual treating team: Can/Denilson The patient is accompanied by son and . The patient was last seen 02/05/24, currently taking dimethyl fumarate . Since the patient's last visit the patient reports overall feeling stable. Granddaughter got Went to [place] in May, had a pain epigastric area - went to hospital and they did scope - had a bleeding ulcer - cauterized the bleed - hospitalized for 5 days - stopped the Aleve/Excedrin (source of the ulcer) Got new glasses after home from [place] Stubbed toe - tripped and fell and broke glasses - poked right eye with stem of glasses and caused black eye on right Saw cardiology 1 week ago at [facility] [place] - said all looked okay - metoprolol on hold x 6 months Denies seizure activity Denies new MS symptoms - balance gradually worse Started going back to the gym and riding bike again SUBJECTIVE AND REVIEW OF SYSTEMS: Neuro-QoL Functions (higher=better functioning) Flowsheet Row Office Visit from 08/19/2024 in [facility] Office Visit from 07/09/2022 in [facility] Office Visit from 01/08/2022 in [facility] Upper Extremity Domain T Score 43.47 48.65 46 Lower Extremity Domain T Score 36.12 34.28 37 Cognitive Function Domain T Score 49.89 47.66 49 Positive Affect Well Being T Score -- -- -- Ability To Participate In Social Roles T Score 44.12 41.16 42 Satisfaction With Social Roles T Score 39.83 62.19 45 Neuro-QoL Symptoms (higher=worse symptoms) Flowsheet Row Office Visit from 08/19/2024 in [facility] Office Visit from 07/09/2022 in [facility] Office Visit from 01/08/2022 in [facility] Sleep Domain T Score 51.07 52.89 48 Fatigue Domain T Score 39.32 47.6 49 Anxiety Domain T Score 41.05 43.16 46 Depression Domain T Score 44.02 48.71 48 Stigma Domain T Score 55.76 58.45 45 Emotional Behavior Dyscontrol T Score -- -- -- *NeuroQoL is a multi-domain patient-reported quality of life questionnaire. PHQ-9 Flowsheet Row Office Visit from 07/04/2023 in Neurology Office Visit from 04/03/2022 in Neurology PHQ-9 Score 4 2 *PHQ-9 is a questionnaire for depressive symptoms, with scores 0-4 indicating none, 5-9 mild, 10-14 moderate, 15-19 moderately severe, and 20-27 severe symptoms. PROMIS-10 Flowsheet Row Office Visit from 07/04/2023 in Neurology Office Visit from 01/08/2022 in [facility] Global Physical Health T Score 34.9 42.3 Global Mental Health T Score 41.1 48.3 0-10 Standard Pain Scale 3 3 *PROMIS-10 is a patient-reported quality of life measure, typically reported as physical and mental domains. Here scores are expressed as percentiles, where the lowest possible score is one, the highest possible score is 99, and 50 is average. Refer to patient-entered data. Mood: PHQ9 responses reviewed and appear below Pain related to today's visit:reviewed on nursing intake documentation PAST HISTORY was reviewed and updated: PAST MEDICAL HISTORY Diagnosis Date Leptospirosis ~1991 MS (multiple sclerosis) (HCC) 2007 Seizures ([facility]) PAST SURGICAL HISTORY Procedure Laterality Date PARTIAL SPLENECTOMY PAST SURGICAL HISTORY OF 1972 Splenectomy [place] [facility] post trauma MEDICATIONS and ALLERGIES were reviewed and updated. SOCIAL HISTORY was reviewed and updated: Social History Tobacco Use Smoking status: Former Types: Cigarettes Smokeless tobacco: Never Tobacco comments: Quit smoking 2008. Living situation: Living at home with assistance Employment Status / Disability: Retired OBJECTIVE: VITALS AND WELLNESS: BP 117/63 (BP Site: Left Arm, BP Position: Sitting, BP Cuff Size: Large Adult) Pulse 90 Ht 182.9 cm (6') Wt 78.5 kg (173 lb) BMI 23.46 kg/m? MSPT Results Flowsheet Row Office Visit from 08/19/2024 in [facility] Office Visit from 07/09/2022 in [facility] Office Visit from 01/08/2022 in [facility] Processing Speed Total Number Correct 35 34 31 Processing Speed Z score 0.05 -0.16 -0.49 Dominant hand -- -- -- MDT Left Hand Time -- 31.96 33.52 MDT Right Hand Time -- 32.59 30.53 Walking Speed Test (25 feet) -- 9.74 8.56 Memory Z Score -- -- -- EXAM: Refer to patient-entered performance data RESULTS: Monitoring labs: LFTs 07/27/24 WNL (more content not included)... [facility] 08-09-2024 Note HNO ID: [id number] Author: WILMA JASSO MA Service: ? Author Type: Gem Setter Type: Progress Notes Filed: 08/09/2024 13:22 Note Text: POPULATION HEALTH NAVIGATION OUTREACH Action/FYI [facility] Emergent HealthHART MESSAGE SENT Topic Due (Y or N) Comments Medicare Wellness Y PCP Follow up Y Colorectal Cancer Screening Y Controlling Blood Pressure A1C HCC Y Flu Vaccine Care Everywhere Reviewed MyChart Activation Updated Appointment Note Reason for Outreach Care Gap/HCC or Scheduling Wellness Visits Care Gaps due: Medicare Annual Wellness Visit Follow-up Appointment Colorectal Cancer Screening Patient Contacted: Unable or unnecessary to reach patient: Left message [id number] Consulting Grouphart message sent HCC related Navigation Signature: Wilma Jasso MA August 09, 2024 1:16 PM [facility] 08-09-2024 Note Patient Outreach (NADIYA TAPIAAV) JUANITA JAY ([id number]) 1955 M Date Time Provider Department 08/09/24 WILMA JASSO NETNAV During your visit today, we recorded the following information about you: Wilma Jasso MA 08/09/2024 1:22 PM Signed POPULATION HEALTH NAVIGATION OUTREACH Action/FYI LVM MYCHART MESSAGE SENT Topic Due (Y or N) Comments Medicare Wellness Y PCP Follow up Y Colorectal Cancer Screening Y Controlling Blood Pressure A1C HCC Y Flu Vaccine Care Everywhere Reviewed MyChart Activation Updated Appointment Note Reason for Outreach Care Gap/HCC or Scheduling Wellness Visits Care Gaps due: Medicare Annual Wellness Visit Follow-up Appointment Colorectal Cancer Screening Patient Contacted: Unable or unnecessary to reach patient: Left message MyChart message sent HCC related Navigation Signature: Wilma Jasso MA August 09, 2024 1:16 PM Allergies As of Date: 08/09/2024 Noted Allergy Reaction CARBAMAZEPINE 10/22/2011 2 - Rash 14 - Other: See Comments Comments: Acute urinary retention Date Reviewed: 02/05/2024 Reviewed by: Zara Nicholas OCCA - Fully Assessed Reason for Visit: Population Health Navigation Outreach [3910] Cmt: [facility] Prescriptions as of 08/09/2024 - tiZANidine (ZANAFLEX) 2 mg tablet TAKE 1 TABLET BY MOUTH EVERYDAY AT BEDTIME - citalopram (CELEXA) 40 mg tablet TAKE 1 TABLET BY MOUTH EVERY DAY - dimethyl fumarate (TECFIDERA) [address] Take 1 capsule (240 mg) by mouth two times a day. - atorvastatin (LIPITOR) 80 mg tablet Take 80 mg by mouth once daily. Take 1 tablet by mouth at night - clopidogrel (PLAVIX) 75 mg tablet Take 75 mg by mouth once daily. - metoprolol tartrate, short acting, (LOPRESSOR) 25 mg tablet Take 25 mg by mouth two times a day. - cyanocobalamin (VITAMIN B-12) 1,000 mcg tab Take 2 tablets by mouth once daily. - zonisamide (ZONEGRAN) 100 mg capsule Take 200 mg am and 300 mg pm - ASPIRIN ORAL Take by mouth. For body aches - sildenafil (REVATIO) 20 mg tablet 1-2 TABS NEEDED 30-60 MINUTES PRIOR TO SEXUAL INTERCOURSE - cephALEXin (KEFLEX) 500 mg capsule Take 1 capsule by mouth twice daily. - ergocalciferol 50,000 unit capsule (VITAMIN D2, DRISDOL) Take 1 capsule by mouth one time a week. - aspirin, enteric coated (ADULT LOW DOSE ASPIRIN) 81 mg EC tablet Take 1 tablet by mouth once daily. - naproxen sodium(ALEVE 220 MG TAB) as needed - multivitamins w-minerals/lut(CENTRUM SILVER TAB) Take one daily Problem List As Of Date 08/09/2024 Noted Resolved Multiple sclerosis (HCC) [G35] 06/16/2003 HEMATURIA NOS [R31.9] 02/08/2008 MS (Multiple Sclerosis) [G35] 07/03/2009 Seizure [R56.9] 05/21/2011 Special screening for malignant neoplasms, colo*07/23/2011 Examination of participant or control in clinic*09/13/2011 Imbalance [R26.89] 09/26/2013 Abnormality of gait [R26.9] 09/26/2013 Adjustment disorder with mixed anxiety and depr*02/26/2018 Seizures (HCC) [R56.9] Leg weakness, bilateral [R29.898] 08/15/2021 Encounter Status:Closed by WILMA JASSO on 08/09/24 [facility] 07-29-2024 Telephone encounter Note Received lab results from [facility]. Placed in provider's inbox for review. Route to MA scanning Entered into pt chart. [facility] 07-29-2024 Miscellaneous Notes Received lab results from [facility]. Placed in provider's inbox for review. Route to MA scanning Entered into pt chart. documented in this encounter [facility] 07-19-2024 Telephone encounter Note The following approved medication requests have been transmitted electronically. Requested Prescriptions Signed Prescriptions Disp Refills tiZANidine (ZANAFLEX) 2 mg tablet 90 tablet 0 Sig: TAKE 1 TABLET BY MOUTH EVERYDAY AT BEDTIME Authorizing Provider: GAEL VILLARREAL citalopram (CELEXA) 40 mg tablet 90 tablet 0 Sig: TAKE 1 TABLET BY MOUTH EVERY DAY Authorizing Provider: GAEL VILLARREAL APRN.DIRECTOR OF PATIENT CARE [facility] 07-19-2024 Miscellaneous Notes The following approved medication requests have been transmitted electronically. Requested Prescriptions Signed Prescriptions Disp Refills tiZANidine (ZANAFLEX) 2 mg tablet 90 tablet 0 Sig: TAKE 1 TABLET BY MOUTH EVERYDAY AT BEDTIME Authorizing Provider: GAEL VILLARREAL citalopram (CELEXA) 40 mg tablet 90 tablet 0 Sig: TAKE 1 TABLET BY MOUTH EVERY DAY Authorizing Provider: GAEL VILLARREAL APRN.CNP Source : electronic from pharmacy requesting refill. Delivery : e-script Requested Prescriptions Pending Prescriptions Disp Refills tiZANidine (ZANAFLEX) 2 mg tablet [Pharmacy Med Name: TIZANIDINE HCL 2 MG TABLET] 90 tablet 0 Sig: TAKE 1 TABLET BY MOUTH EVERYDAY AT BEDTIME citalopram (CELEXA) 40 mg tablet [Pharmacy Med Name: CITALOPRAM HBR 40 MG TABLET] 90 tablet 0 Sig: TAKE 1 TABLET BY MOUTH EVERY DAY DX : Patient last seen: 02/05/2024 Next Appointment : 08/19/2024 Sophia Johnson documented in this encounter [facility] 07-19-2024 Telephone encounter Note Source : electronic from pharmacy requesting refill. Delivery : e-script Requested Prescriptions Pending Prescriptions Disp Refills tiZANidine (ZANAFLEX) 2 mg tablet [Pharmacy Med Name: TIZANIDINE HCL 2 MG TABLET] 90 tablet 0 Sig: TAKE 1 TABLET BY MOUTH EVERYDAY AT BEDTIME citalopram (CELEXA) 40 mg tablet [Pharmacy Med Name: CITALOPRAM HBR 40 MG TABLET] 90 tablet 0 Sig: TAKE 1 TABLET BY MOUTH EVERY DAY DX : Patient last seen: 02/05/2024 Next Appointment : 08/19/2024 Sophia Johnson [facility] Work Phone: 07-07-2024 Note HNO ID: [id number] Author: WILMA JASSO MA Service: ? Author Type: Gem Setter Type: Progress Notes Filed: 07/07/2024 16:14 Note Text: POPULATION HEALTH NAVIGATION OUTREACH Action/FYI LVM MYCHART MESSAGE SENT Topic Due (Y or N) Comments Medicare Wellness Y PCP Follow up Colorectal Cancer Screening Y Controlling Blood Pressure A1C HCC Y Flu Vaccine Y Care Everywhere Reviewed MyChart Activation Updated Appointment Note Reason for Outreach Care Gap/HCC or Scheduling Wellness Visits Care Gaps due: Medicare Annual Wellness Visit Colorectal Cancer Screening Flu Vaccine Patient Contacted: Unable or unnecessary to reach patient: Left message MyChart message sent HCC related Navigation Signature: Wilma Jasso MA July 07, 2024 8:01 AM [facility] 07-07-2024 History of Presen t illness Narrative POPULATION HEALTH NAVIGATION OUTREACH Action/FYI LVM MYCHART MESSAGE SENT Topic Due (Y or N) Comments Medicare Wellness Y PCP Follow up Colorectal Cancer Screening Y Controlling Blood Pressure A1C HCC Y Flu Vaccine Y Care Everywhere Reviewed MyChart Activation Updated Appointment Note Reason for Outreach Care Gap/HCC or Scheduling Wellness Visits Care Gaps due: Medicare Annual Wellness Visit Colorectal Cancer Screening Flu Vaccine Patient Contacted: Unable or unnecessary to reach patient: Left message MyChart message sent HCC related Navigation Signature: Wilma Jasso MA July 07, 2024 8:01 AM documented in this encounter [facility] 07-07-2024 Note Patient Outreach (NADIYA TAPIAAV) JUANITA JAY ([id number]) 1955 M Date Time Provider Department 07/07/24 WILMA JASSO During your visit today, we recorded the following information about you: Wilma Jasso MA 07/07/2024 4:14 PM Signed POPULATION HEALTH NAVIGATION OUTREACH Action/FYI [facility] MESSAGE SENT Topic Due (Y or N) Comments Medicare Wellness Y PCP Follow up Colorectal Cancer Screening Y Controlling Blood Pressure A1C HCC Y Flu Vaccine Y Care Everywhere Reviewed MyChart Activation Updated Appointment Note Reason for Outreach Care Gap/HCC or Scheduling Wellness Visits Care Gaps due: Medicare Annual Wellness Visit Colorectal Cancer Screening Flu Vaccine Patient Contacted: Unable or unnecessary to reach patient: Left message MyChart message sent HCC related Navigation Signature: Wilma Jasso MA July 07, 2024 8:01 AM Allergies As of Date: 07/07/2024 Noted Allergy Reaction CARBAMAZEPINE 10/22/2011 2 - Rash 14 - Other: See Comments Comments: Acute urinary retention Date Reviewed: 02/05/2024 Reviewed by: Zara Nicholas OCCA - Fully Assessed Reason for Visit: Population Health Navigation Outreach [3910] Cmt: [facility] Prescriptions as of 07/07/2024 - dimethyl fumarate (TECFIDERA) [address] Take 1 capsule (240 mg) by mouth two times a day. - tiZANidine (ZANAFLEX) 2 mg tablet Take 1 tablet by mouth daily at bedtime. - citalopram (CELEXA) 40 mg tablet Take 1 tablet by mouth once daily. - atorvastatin (LIPITOR) 80 mg tablet Take 80 mg by mouth once daily. Take 1 tablet by mouth at night - clopidogrel (PLAVIX) 75 mg tablet Take 75 mg by mouth once daily. - ferrous sulfate 325 mg (65 mg iron) tablet Take 1 tablet by mouth once daily. - metoprolol tartrate, short acting, (LOPRESSOR) 25 mg tablet Take 25 mg by mouth two times a day. - cyanocobalamin (VITAMIN B-12) 1,000 mcg tab Take 2 tablets by mouth once daily. - zonisamide (ZONEGRAN) 100 mg capsule Take 200 mg am and 300 mg pm - ASPIRIN ORAL Take by mouth. For body aches - sildenafil (REVATIO) 20 mg tablet 1-2 TABS NEEDED 30-60 MINUTES PRIOR TO SEXUAL INTERCOURSE - cephALEXin (KEFLEX) 500 mg capsule Take 1 capsule by mouth twice daily. - ergocalciferol 50,000 unit capsule (VITAMIN D2, DRISDOL) Take 1 capsule by mouth one time a week. - aspirin, enteric coated (ADULT LOW DOSE ASPIRIN) 81 mg EC tablet Take 1 tablet by mouth once daily. - naproxen sodium(ALEVE 220 MG TAB) as needed - multivitamins w-minerals/lut(CENTRUM SILVER TAB) Take one daily Problem List As Of Date 07/07/2024 Noted Resolved Multiple sclerosis (HCC) [G35] 06/16/2003 HEMATURIA NOS [R31.9] 02/08/2008 MS (Multiple Sclerosis) [G35] 07/03/2009 Seizure [R56.9] 05/21/2011 Special screening for malignant neoplasms, colo*07/23/2011 Examination of participant or control in clinic*09/13/2011 Imbalance [R26.89] 09/26/2013 Abnormality of gait [R26.9] 09/26/2013 Adjustment disorder with mixed anxiety and depr*02/26/2018 Seizures (HCC) [R56.9] Leg weakness, bilateral [R29.898] 08/15/2021 Encounter Status:Closed by WILMA JASSO on 07/07/24 [facility] 06-02-2024 Note HNO ID: [id number] Author: WILMA JASSO MA Service: ? Author Type: Gem Setter Type: Progress Notes Filed: 06/02/2024 09:05 Note Text: POPULATION HEALTH NAVIGATION OUTREACH Action/[employer] MESSAGE SENT Topic Due (Y or N) Comments Medicare Wellness Y PCP Follow up Colorectal Cancer Screening Y Controlling Blood Pressure A1C HCC Flu Vaccine Care Everywhere Reviewed MyChart Activation Updated Appointment Note Reason for Outreach Care Gap/HCC or Scheduling Wellness Visits Care Gaps due: Medicare Annual Wellness Visit Colorectal Cancer Screening Patient Contacted: Unable or unnecessary to reach patient: Left message Ammado message sent Navigation Signature: Wilma Jasso MA June 02, 2024 8:59 AM [facility] 06-02-2024 History of Presen t illness Narrative POPULATION HEALTH NAVIGATION OUTREACH Action/FYI [employer] MESSAGE SENT Topic Due (Y or N) Comments Medicare Wellness Y PCP Follow up Colorectal Cancer Screening Y Controlling Blood Pressure A1C HCC Flu Vaccine Care Everywhere Reviewed MyChart Activation Updated Appointment Note Reason for Outreach Care Gap/HCC or Scheduling Wellness Visits Care Gaps due: Medicare Annual Wellness Visit Colorectal Cancer Screening Patient Contacted: Unable or unnecessary to reach patient: Left message [id number] [employer] message sent Navigation Signature: Wilma Jasso MA June 02, 2024 8:59 AM documented in this encounter [facility] 06-02-2024 Note Patient Outreach (NE TNAV) JUANITA JAY ([id number]) 1955 M Date Time Provider Department 06/02/24 WILMA JASSO NETNAV During your visit today, we recorded the following information about you: Wilma Jasso MA 06/02/2024 9:05 AM Signed POPULATION HEALTH NAVIGATION OUTREACH Action/FYI [facility] MESSAGE SENT Topic Due (Y or N) Comments Medicare Wellness Y PCP Follow up Colorectal Cancer Screening Y Controlling Blood Pressure A1C HCC Flu Vaccine Care Everywhere Reviewed MyChart Activation Updated Appointment Note Reason for Outreach Care Gap/HCC or Scheduling Wellness Visits Care Gaps due: Medicare Annual Wellness Visit Colorectal Cancer Screening Patient Contacted: Unable or unnecessary to reach patient: Left message Ammado message sent Navigation Signature: Wilma Jasso MA June 02, 2024 8:59 AM Allergies As of Date: 06/02/2024 Noted Allergy Reaction CARBAMAZEPINE 10/22/2011 2 - Rash 14 - Other: See Comments Comments: Acute urinary retention Date Reviewed: 02/05/2024 Reviewed by: Zara Nicholas OCCA - Fully Assessed Reason for Visit: Population Health Navigation Outreach [3910] Cmt: [facility] Prescriptions as of 06/02/2024 - dimethyl fumarate (TECFIDERA) [address] Take 1 capsule (240 mg) by mouth two times a day. - tiZANidine (ZANAFLEX) 2 mg tablet Take 1 tablet by mouth daily at bedtime. - citalopram (CELEXA) 40 mg tablet Take 1 tablet by mouth once daily. - atorvastatin (LIPITOR) 80 mg tablet Take 80 mg by mouth once daily. Take 1 tablet by mouth at night - clopidogrel (PLAVIX) 75 mg tablet Take 75 mg by mouth once daily. - ferrous sulfate 325 mg (65 mg iron) tablet Take 1 tablet by mouth once daily. - metoprolol tartrate, short acting, (LOPRESSOR) 25 mg tablet Take 25 mg by mouth two times a day. - cyanocobalamin (VITAMIN B-12) 1,000 mcg tab Take 2 tablets by mouth once daily. - zonisamide (ZONEGRAN) 100 mg capsule Take 200 mg am and 300 mg pm - ASPIRIN ORAL Take by mouth. For body aches - sildenafil (REVATIO) 20 mg tablet 1-2 TABS NEEDED 30-60 MINUTES PRIOR TO SEXUAL INTERCOURSE - cephALEXin (KEFLEX) 500 mg capsule Take 1 capsule by mouth twice daily. - ergocalciferol 50,000 unit capsule (VITAMIN D2, DRISDOL) Take 1 capsule by mouth one time a week. - aspirin, enteric coated (ADULT LOW DOSE ASPIRIN) 81 mg EC tablet Take 1 tablet by mouth once daily. - naproxen sodium(ALEVE 220 MG TAB) as needed - multivitamins w-minerals/lut(CENTRUM SILVER TAB) Take one daily Problem List As Of Date 06/02/2024 Noted Resolved Multiple sclerosis (HCC) [G35] 06/16/2003 HEMATURIA NOS [R31.9] 02/08/2008 MS (Multiple Sclerosis) [G35] 07/03/2009 Seizure [R56.9] 05/21/2011 Special screening for malignant neoplasms, colo*07/23/2011 Examination of participant or control in clinic*09/13/2011 Imbalance [R26.89] 09/26/2013 Abnormality of gait [R26.9] 09/26/2013 Adjustment disorder with mixed anxiety and depr*02/26/2018 Seizures (HCC) [R56.9] Leg weakness, bilateral [R29.898] 08/15/2021 Encounter Status:Closed by WILMA JASSO on 06/02/24 [facility] 05-03-2024 Telephone encounter Note Opened in error [facility] 05-03-2024 Miscellaneous Notes Opened in error documented in this encounter [facility] 05-03-2024 Note HNO ID: [id number] Author: WILMA JASSO MA Service: ? Author Type: Gem Setter Type: Progress Notes Filed: 05/03/2024 08:39 Note Text: POPULATION HEALTH NAVIGATION OUTREACH Action/FYI No answer [employer] message sent Topic Due (Y or N) Comments Medicare Wellness Y PCP Follow up Mammogram Colorectal Cancer Screening Y A1C Dilated Retinal Exam (YANELIS) KED (UACR and eGFR) HCC Y Flu Vaccine Y Care Everywhere Reviewed MyChart Activation Updated Appointment Note . Reason for Outreach Care Gap/HCC or Scheduling Wellness Visits Care Gaps due: Medicare Annual Wellness Visit Colorectal Cancer Screening Flu Vaccine Patient Contacted: Unable or unnecessary to reach patient: Unable to leave message Ammado message sent HCC related Navigation Signature: Wilma Jasso MA May 03, 2024 7:45 AM [facility] 05-03-2024 Note Patient Outreach (NADIYA TNAV) JUANITA JAY ([id number]) 1955 M Date Time Provider Department 05/03/24 WILMA JASSO During your visit today, we recorded the following information about you: Wilma Jasso MA 05/03/2024 8:39 AM Signed POPULATION HEALTH NAVIGATION OUTREACH Action/FYI No answer Quant[employer] message sent Topic Due (Y or N) Comments Medicare Wellness Y PCP Follow up Mammogram Colorectal Cancer Screening Y A1C Dilated Retinal Exam (YANELIS) KED (UACR and eGFR) HCC Y Flu Vaccine Y Care Everywhere Reviewed MyChart Activation Updated Appointment Note . Reason for Outreach Care Gap/HCC or Scheduling Wellness Visits Care Gaps due: Medicare Annual Wellness Visit Colorectal Cancer Screening Flu Vaccine Patient Contacted: Unable or unnecessary to reach patient: Unable to leave message pg40 [employer] message sent HCC related Navigation Signature: Wilma Jasso MA May 03, 2024 7:45 AM Allergies As of Date: 05/03/2024 Noted Allergy Reaction CARBAMAZEPINE 10/22/2011 2 - Rash 14 - Other: See Comments Comments: Acute urinary retention Date Reviewed: 02/05/2024 Reviewed by: Zara Nicholas OCCA - Fully Assessed Reason for Visit: Population Health Navigation Outreach [3910] Cmt: [facility] PC[facility] Prescriptions as of 05/03/2024 - dimethyl fumarate (TECFIDERA) [address] Take 1 capsule (240 mg) by mouth two times a day. - tiZANidine (ZANAFLEX) 2 mg tablet Take 1 tablet by mouth daily at bedtime. - citalopram (CELEXA) 40 mg tablet Take 1 tablet by mouth once daily. - atorvastatin (LIPITOR) 80 mg tablet Take 80 mg by mouth once daily. Take 1 tablet by mouth at night - clopidogrel (PLAVIX) 75 mg tablet Take 75 mg by mouth once daily. - ferrous sulfate 325 mg (65 mg iron) tablet Take 1 tablet by mouth once daily. - metoprolol tartrate, short acting, (LOPRESSOR) 25 mg tablet Take 25 mg by mouth two times a day. - cyanocobalamin (VITAMIN B-12) 1,000 mcg tab Take 2 tablets by mouth once daily. - zonisamide (ZONEGRAN) 100 mg capsule Take 200 mg am and 300 mg pm - ASPIRIN ORAL Take by mouth. For body aches - sildenafil (REVATIO) 20 mg tablet 1-2 TABS NEEDED 30-60 MINUTES PRIOR TO SEXUAL INTERCOURSE - cephALEXin (KEFLEX) 500 mg capsule Take 1 capsule by mouth twice daily. - ergocalciferol 50,000 unit capsule (VITAMIN D2, DRISDOL) Take 1 capsule by mouth one time a week. - aspirin, enteric coated (ADULT LOW DOSE ASPIRIN) 81 mg EC tablet Take 1 tablet by mouth once daily. - naproxen sodium(ALEVE 220 MG TAB) as needed - multivitamins w-minerals/lut(CENTRUM SILVER TAB) Take one daily Problem List As Of Date 05/03/2024 Noted Resolved Multiple sclerosis (HCC) [G35] 06/16/2003 HEMATURIA NOS [R31.9] 02/08/2008 MS (Multiple Sclerosis) [G35] 07/03/2009 Seizure [R56.9] 05/21/2011 Special screening for malignant neoplasms, colo*07/23/2011 Examination of participant or control in clinic*09/13/2011 Imbalance [R26.89] 09/26/2013 Abnormality of gait [R26.9] 09/26/2013 Adjustment disorder with mixed anxiety and depr*02/26/2018 Seizures (HCC) [R56.9] Leg weakness, bilateral [R29.898] 08/15/2021 Encounter Status:Closed by WILMA JASSO on 05/03/24 [facility] 04-22-2024 Telephone encounter Note The following approved medication requests have been transmitted electronically. Requested Prescriptions Signed Prescriptions Disp Refills dimethyl fumarate (TECFIDERA) [address] 180 capsule 3 Sig: Take 1 capsule (240 mg) by mouth two times a day. Authorizing Provider: TELLO SLAUGHTER PA-C [facility] 04-22-2024 Miscellaneous Notes The following approved medication requests have been transmitted electronically. Requested Prescriptions Signed Prescriptions Disp Refills dimethyl fumarate (TECFIDERA) [address] 180 capsule 3 Sig: Take 1 capsule (240 mg) by mouth two times a day. Authorizing Provider: TELLO SLAUGHTER PA-C Source : call from pharmacy requesting refill. Delivery : e-script Requested Prescriptions Pending Prescriptions Disp Refills dimethyl fumarate (TECFIDERA) [address] 180 capsule 3 Sig: Take 1 capsule (240 mg) by mouth two times a day. DX : Patient last seen 02/05/2024 Next Appointment : MELLY Guidry documented in this encounter [facility] 04-22-2024 Telephone encounter Note Source : call from pharmacy requesting refill. Delivery : e-script Requested Prescriptions Pending Prescriptions Disp Refills dimethyl fumarate (TECFIDERA) [address] 180 capsule 3 Sig: Take 1 capsule (240 mg) by mouth two times a day. DX : Patient last seen 02/05/2024 Next Appointment : MELLY Guidry [facility] 04-21-2024 Telephone encounter Note The following approved medication requests have been transmitted electronically. Requested Prescriptions Signed Prescriptions Disp Refills tiZANidine (ZANAFLEX) 2 mg tablet 90 tablet 0 Sig: Take 1 tablet by mouth daily at bedtime. Authorizing Provider: TELLO SLAUGHTER citalopram (CELEXA) 40 mg tablet 90 tablet 0 Sig: Take 1 tablet by mouth once daily. Authorizing Provider: TELLO SLAUGHTER PA-C [facility] 04-21-2024 Miscellaneous Notes The following approved medication requests have been transmitted electronically. Requested Prescriptions Signed Prescriptions Disp Refills tiZANidine (ZANAFLEX) 2 mg tablet 90 tablet 0 Sig: Take 1 tablet by mouth daily at bedtime. Authorizing Provider: TELLO SLAUGHTER citalopram (CELEXA) 40 mg tablet 90 tablet 0 Sig: Take 1 tablet by mouth once daily. Authorizing Provider: TELLO SLAUGHTER PA-C Patient is going out of town and will lie refilled before he leaves this week. Source : call from patient requesting refill. Delivery : e-script Requested Prescriptions Pending Prescriptions Disp Refills tiZANidine (ZANAFLEX) 2 mg tablet 90 tablet 0 Sig: Take 1 tablet by mouth daily at bedtime. citalopram (CELEXA) 40 mg tablet 90 tablet 0 Sig: Take 1 tablet by mouth once daily. DX : Patient last seen 02/05/2024 Next Appointment : 08/05/2024 MELLY Guidry documented in this encounter [facility] 04-21-2024 Telephone encounter Note Patient is going out of town and will lie refilled before he leaves this week. Source : call from patient requesting refill. Delivery : e-script Requested Prescriptions Pending Prescriptions Disp Refills tiZANidine (ZANAFLEX) 2 mg tablet 90 tablet 0 Sig: Take 1 tablet by mouth daily at bedtime. citalopram (CELEXA) 40 mg tablet 90 tablet 0 Sig: Take 1 tablet by mouth once daily. DX : Patient last seen 02/05/2024 Next Appointment : 08/05/2024 MELLY Guidry [facility] 04-05-2024 Telephone encounter Note Received 04/02/2024 from [facility]. Placed in provider's inbox for review. Route to [place] for scanning. [facility] 04-05-2024 Miscellaneous Notes Received 04/02/2024 from [facility]. Placed in provider's inbox for review. Route to MA for scanning. documented in this encounter [facility] 04-01-2024 Telephone encounter Note Received lab results from [facility]. Placed in provider's inbox for review. Route to MA scanning [facility] 04-01-2024 Miscellaneous Notes Received lab results from [facility]. Placed in provider's inbox for review. Route to MA scanning documented in this encounter [facility] 02-12-2024 Note HNO ID: [id number] Author: ?, ?, ? Service: ? Author Type: ? Type: Progress Notes Filed: 02/19/2024 10:22 Note Text: Requested by: Received fax from pharmacy Medication Requested: Dimethyl Fumarate 240 mg. Insurance Name: [employer] phone #: Patient ID#: last 4 digits [id number] Faxed over completed [employer] Form along with last office note to fax #[phone]. APPROVED from 02/15/2024 thru 02/14/2025, PA# [employer] [phone] . [facility] 02-12-2024 History of Presen t illness Narrative Requested by: Received fax from pharmacy Medication Requested: Dimethyl Fumarate 240 mg. Insurance Name: [employer] phone #: Patient ID#: last 4 digits [id number] Faxed over completed [employer] Form along with last office note to fax #[phone]. APPROVED from 02/15/2024 thru 02/14/2025, PA# [employer] [phone] . documented in this encounter [facility] 02-05-2024 History of Presen t illness Narrative Images from the original note were not included. [facility] FOR MULTIPLE SCLEROSIS FOLLOWUP/ESTABLISHED PATIENT VISIT Principal Neurologic Diagnosis: Multiple Sclerosis HISTORY OF ILLNESS HEADER: Date of onset: 10/29/2002 Date of diagnosis: 03/2003 Disease course from Onset: Exacerbating/Remitting Disease course last year: Exacerbating/Remitting Current MS Disease Therapy: Tecfidera (started 03/2007 for research trial, commercial drug started 11/2017) Previous MS Disease Therapies: Avonex (04/2003--10/2006; breakthrough on MRI) Last MRI: 08/05/23 CHIEF COMPLAINT: Follow-up on MS disease modifying therapy INTERVAL HISTORY: Usual treating team: Can/Denilson The patient is accompanied by and son. The patient was last seen 07/09/22, currently taking dimethyl fumarate. Since the patient's last visit the patient reports overall feeling stable. In November he experienced chest pain - started with pain in arm, then went into chest. Went to ED. Did a cath and found blockages - had open heart for double bypass ([facility]) - was in rehab after and now outpatient cardiac rehab now with benefit - set to follow-up with cardiology in March - on anticoagulant now but not sure why? He doesn't remember blood clot Denies seizure activity Notes mood irritable/"grouchy" at times Declines need for further intervention SUBJECTIVE & REVIEW OF SYSTEMS: Neuro-QoL Functions (higher=better functioning) Flowsheet [facility] Office Visit from 07/09/2022 in [facility] Office Visit from 01/08/2022 in [facility] Office Visit from 07/04/2021 in [facility] Upper Extremity Domain T Score 48.65 46 49 Lower Extremity Domain T Score 34.28 37 37 Cognitive Function Domain T Score 47.66 49 46 Positive Affect Well Being T Score -- -- -- Ability To Participate In Social Roles T Score 41.16 42 50 Satisfaction With Social Roles T Score 62.19 45 44 Neuro-QoL Symptoms (higher=worse symptoms) Flowsheet [facility] Office Visit from 07/09/2022 in [facility] Office Visit from 01/08/2022 in [facility] Office Visit from 07/04/2021 in [facility] Sleep Domain T Score 52.89 48 47 Fatigue Domain T Score 47.6 49 50 Anxiety Domain T Score 43.16 46 41 Depression Domain T Score 48.71 48 47 Stigma Domain T Score 58.45 45 37 Emotional Behavior Dyscontrol T Score -- -- -- *NeuroQoL is a multi-domain patient-reported quality of life questionnaire. PHQ-9 Flowsheet Row Office Visit from 07/04/2023 in Neurology Office Visit from 04/03/2022 in Neurology PHQ-9 Score 4 2 *PHQ-9 is a questionnaire for depressive symptoms, with scores 0-4 indicating none, 5-9 mild, 10-14 moderate, 15-19 moderately severe, and 20-27 severe symptoms. PROMIS-10 Flowsheet Row Office Visit from 07/04/2023 in Neurology Office Visit from 01/08/2022 in [facility] Global Physical Health T Score 34.9 42.3 Global Mental Health T Score 41.1 48.3 0-10 Standard Pain Scale 3 3 *PROMIS-10 is a patient-reported quality of life measure, typically reported as physical and mental domains. Here scores are expressed as percentiles, where the lowest possible score is one, the highest possible score is 99, and 50 is average. Refer to patient-entered data. Mood: PHQ9 responses reviewed and appear below Pain related to today's visit:reviewed on nursing intake documentation PAST HISTORY was reviewed and updated: PAST MEDICAL HISTORY Diagnosis Date Leptospirosis ~1991 MS (multiple sclerosis) (HCC) 2006 Seizures (HCC) PAST SURGICAL HISTORY Procedure Laterality Date PARTIAL SPLENECTOMY PAST SURGICAL HISTORY OF 1972 Splenectomy [place] [facility] post trauma MEDICATIONS and ALLERGIES were reviewed and updated. SOCIAL HISTORY was reviewed and updated: Social History Tobacco Use Smoking status: Former Types: Cigarettes Smokeless tobacco: Never Tobacco comments: Quit smoking 2008. Living situation: Living at home with assistance Employment Status / Disability: Retired OBJECTIVE: VITALS & WELLNESS: BP 111/57 Pulse (!) 54 Ht 182.9 cm (6') Wt 80.7 kg (178 lb) BMI 24.14 kg/m MSPT Results Flowsheet Row Office Visit from 07/09/2022 in [facility] Office Visit from 01/08/2022 in [facility] Office Visit from 07/04/2021 in [facility] Processing Speed Total Number Correct 34 31 33 Processing Speed Z score -0.16 -0.49 -0.31 Dominant hand -- -- -- MDT Left Hand Time 31.96 33.52 42.09 MDT Right Hand Time 32.59 30.53 31.37 Walking Speed Test (25 feet) 9.74 8.56 9.74 EXAM: General Appearance: well appearing, in no acute distress Mental status evaluation during the interview and examination showed normal level of consciousness, orientation, language, memory, praxis, and higher intellectual function Affect: Normal Extraocular movements: nystagmus (R>L), saccadic Speech: normal Muscle strength (#/5): Right Left Upper Extremity: Deltoids 5 5 Biceps 5 5 Triceps 5 5 Replenishment Associate 5 5 Dorsal interossei 5 5 Lower extremity: Iliopsoas 5 5 Quadriceps 5 5 Hamstrings 5 5 Tibialis anterior 5 5 Gastrocnemius 5 5 Coordination: Upper extremity dexterity and rapid movements: impaired bilaterally Finger-nose: mild dysmetria or incoordination are evident bilaterally (L>R) Standing balance: Impaired Standard gait: wide-based, unsteady. Assistive device: cane RESULTS: Monitoring labs: CBC + Diff Component Value Date WBC 12.71 (H) 07/09/2023 HB 15.8 07/09/2023 HCT 46.5 07/09/2023 PLT 355 07/09/2023 CMP Component Value Date AST 13 (L) 07/09/2023 GLUC 131 (H) 07/09/2023 BUN 29 (H) 07/09/2023 CREAT 1.05 07/09/2023 NA 141 07/09/2023 K 4.3 07/09/2023 CHLOR 108 (H) 07/09/2023 ALT 9 (L) 07/09/2023 No results found for: "JCVAB", JCVIND Discrete MRI Results Component Value Date Brain New T2 Lesions None Site 08/05/2023 Brain Enhancing Lesions None 08/05/2023 ASSESSMENT/PLAN: Juanita Jay is a 68 year old male with Multiple Sclerosis. Patient is on DMF for DMT. Reports good tolerance and compliance. Will obtain safety monitoring labs. Brain MRI from July 2023 appears stable. Will repeat in about 1 year. MRI of the brain and/or spinal cord is being ordered to evaluate for efficacy of multiple sclerosis (MS) disease modifying therapy. Disease activity in MS is often not immediately detectable on history or examination, but is sensitively identified on MRI. If identified, new or active MS lesions on MRI may represent suboptimal response to MS therapy, and would change medical management. Reports double bypass surgery in November and is recovering - remains in cardiac rehab with benefit. Encouraged continued healthy lifestyle/exercise efforts. Discussed mood and ways to help with irritability - remains on Celexa. Declines need for further intervention. Continues to follow with epilepsy team and will see cardiology in March. Plans to discuss with PCP/cardiology need to continue Plavix. Exam is:Stable, continue with current IMDT. The prescribed disease modifying therapy for MS is having the expected benefit in this patient based on imaging and clinical criteria, and will be continued or refilled, with planned follow-up at approximately 6-month intervals to continue to assess response on an ongoing basis. Patient Health Education Discussed at Visit: Aerobic exercise, Emotional Health/Wellness, Risks and Common side effects of MS medications, and Vitamin D supplementation Follow-up: In 6 months at [place] or Virtual Visit with [facility] or sooner if needed I spent a total of 45 minutes on the date of the service which included preparing to see the patient, [id number] patient care, completing clinical documentation, obtaining and/or reviewing separately obtained history, performing a medically appropriate examination, counseling and educating the patient/family/caregiver, ordering medications, tests, or procedures, and communicating results to the patient/family/caregiver. Tello Slaughter PA-C The chart was reviewed for possible participation in the following studies:None documented in this encounter [facility] 02-05-2024 Note HNO ID: [id number] Author: TELLO SLAUGHTER PA-C Service: ? Author Type: Physician Borough Coordinator Type: Progress Notes Filed: 02/05/2024 15:50 Note Text: [facility] MULTIPLE [facility]CLEROS[facility] FOLLOWUP/ESTABLISHED PATIENT VISIT Principal Neurologic Diagnosis: Multiple Sclerosis HISTORY OF ILLNESS HEADER: Date of onset: 10/29/2002 Date of diagnosis: 03/2003 Disease course from Onset: Exacerbating/Remitting Disease course last year: Exacerbating/Remitting Current MS Disease Therapy: Tecfidera (started 03/2007 for research trial, commercial drug started 11/2017) Previous MS Disease Therapies: Avonex (04/2003--10/2006; breakthrough on MRI) Last MRI: 08/05/23 CHIEF COMPLAINT: Follow-up on MS disease modifying therapy INTERVAL HISTORY: Usual treating team: Can/Denilson The patient is accompanied by and son. The patient was last seen 07/09/22, currently taking dimethyl fumarate. Since the patient's last visit the patient reports overall feeling stable. In November he experienced chest pain - started with pain in arm, then went into chest. Went to ED. Did a cath and found blockages - had open heart for double bypass ([facility]) - was in rehab after and now outpatient cardiac rehab now with benefit - set to follow-up with cardiology in March - on anticoagulant now but not sure why? He doesn't remember blood clot Denies seizure activity Notes mood irritable/"grouchy" at times Declines need for further intervention SUBJECTIVE AND REVIEW OF SYSTEMS: Neuro-QoL Functions (higher=better functioning) Flowsheet [facility] Office Visit from 07/09/2022 in [facility] Office Visit from 01/08/2022 in [facility] Office Visit from 07/04/2021 in [facility] Upper Extremity Domain T Score 48.65 46 49 Lower Extremity Domain T Score 34.28 37 37 Cognitive Function Domain T Score 47.66 49 46 Positive Affect Well Being T Score -- -- -- Ability To Participate In Social Roles T Score 41.16 42 50 Satisfaction With Social Roles T Score 62.19 45 44 Neuro-QoL Symptoms (higher=worse symptoms) Flowsheet [facility] Office Visit from 07/09/2022 in [facility] Office Visit from 01/08/2022 in [facility] Office Visit from 07/04/2021 in [facility] Sleep Domain T Score 52.89 48 47 Fatigue Domain T Score 47.6 49 50 Anxiety Domain T Score 43.16 46 41 Depression Domain T Score 48.71 48 47 Stigma Domain T Score 58.45 45 37 Emotional Behavior Dyscontrol T Score -- -- -- *NeuroQoL is a multi-domain patient-reported quality of life questionnaire. PHQ-9 Flowsheet Row Office Visit from 07/04/2023 in Neurology Office Visit from 04/03/2022 in Neurology PHQ-9 Score 4 2 *PHQ-9 is a questionnaire for depressive symptoms, with scores 0-4 indicating none, 5-9 mild, 10-14 moderate, 15-19 moderately severe, and 20-27 severe symptoms. PROMIS-10 Flowsheet Row Office Visit from 07/04/2023 in Neurology Office Visit from 01/08/2022 in [facility] Global Physical Health T Score 34.9 42.3 Global Mental Health T Score 41.1 48.3 0-10 Standard Pain Scale 3 3 *PROMIS-10 is a patient-reported quality of life measure, typically reported as physical and mental domains. Here scores are expressed as percentiles, where the lowest possible score is one, the highest possible score is 99, and 50 is average. Refer to patient-entered data. Mood: PHQ9 responses reviewed and appear below Pain related to today's visit:reviewed on nursing intake documentation PAST HISTORY was reviewed and updated: PAST MEDICAL HISTORY Diagnosis Date Leptospirosis ~1991 MS (multiple sclerosis) (HCC) 2007 Seizures (HCC) PAST SURGICAL HISTORY Procedure Laterality Date PARTIAL SPLENECTOMY PAST SURGICAL HISTORY OF 1972 Splenectomy [place] [facility] post trauma MEDICATIONS and ALLERGIES were reviewed and updated. SOCIAL HISTORY was reviewed and updated: Social History Tobacco Use Smoking status: Former Types: Cigarettes Smokeless tobacco: Never Tobacco comments: Quit smoking 2008. Living situation: Living at home with assistance Employment Status / Disability: Retired OBJECTIVE: VITALS AND WELLNESS: BP 111/57 Pulse (!) 54 Ht 182.9 cm (6') Wt 80.7 kg (178 lb) BMI 24.14 kg/m? MSPT Results Flowsheet Row Office Visit from 07/09/2022 in [facility] Office Visit from 01/08/2022 in [facility] Office Visit from 07/04/2021 in [facility] Processing Speed Total Number Correct 34 31 33 Processing Speed Z score -0.16 -0.49 -0.31 Dominant hand -- -- -- MDT Left Hand Time 31.96 33.52 42.09 MDT Right Hand Time 32.59 30.53 31.37 Walking Speed Test (25 feet) 9.74 8.56 9.74 EXAM: General Appearance: well appearing, in no acute distress Mental status evaluation during the interview and examination showed normal level of consciousness, orientation, language, memory, praxis, and higher intellectual function Affect: Normal Extraocular movements: nystagmus (R>L), saccadic Speech: normal Muscle strength (#/5): R (more content not included)... [facility] 01-14-2024 Telephone encounter Note Received pt records from [facility]. Placed in provider's inbox for review. Route to [facility] scanning [facility] 01-14-2024 Miscellaneous Notes Received pt records from [facility]. Placed in provider's inbox for review. Route to MA scanning documented in this encounter [facility] 01-06-2024 Telephone encounter Note Received visit summary from [facility]. Placed in provider's inbox for review. Route to MA scanning [facility] 01-06-2024 Miscellaneous Notes Received visit summary from [facility]. Placed in provider's inbox for review. Route to MA scanning documented in this encounter [facility] 01-06-2024 Note ORIGINAL EXAMINATION: TWO XRAY VIEWS OF THE CHEST 01/06/2024 9:43 am COMPARISON: Chest x-ray on 12/01/2023 HISTORY: ORDERING SYSTEM PROVIDED HISTORY: Reason for Exam: SOB FINDINGS: Sternal wire sutures are intact. The heart size and mediastinal contours are normal. There is no acute lung infiltrate or edema. No pneumothorax or pleural fluid is present. There is no acute skeletal abnormality. IMPRESSION: No acute cardiopulmonary abnormality. Interpreted by: Balaji Mahmood MD Preliminary Report By: Balaji Mahmood MD Electronically signed By Balaji Mahmood MD Dictated Date: 01/07/2024 12:19:58 AM Prelim Date: 01/07/2024 12:21:05 AM Sign Date: 01/07/2024 12:21:05 AM Ordering Provider: [facility] 01-05-2024 Telephone encounter Note Received visit summary from [facility]. Placed in provider's inbox for review. Route to [facility] scanning [facility] 01-05-2024 Miscellaneous Notes Received visit summary from [facility]. Placed in provider's inbox for review. Route to MA scanning documented in this encounter [facility] 12-10-2023 Telephone encounter Note Received 12/09/2023 from [facility]. Placed in provider's inbox for review. Route to MA for scanning. [facility] 12-10-2023 Miscellaneous Notes Received 12/09/2023 from [facility]. Placed in provider's inbox for review. Route to MA for scanning. documented in this encounter [facility] 12-04-2023 Telephone encounter Note Received blood type, B negative from [facility]. Placed in provider's inbox for review. Route to MA scanning Entered into pt chart [facility] 12-04-2023 Miscellaneous Notes Received blood type, B negative from [facility]. Placed in provider's inbox for review. Route to MA scanning Entered into pt chart documented in this encounter [facility] 12-01-2023 Telephone encounter Note Received 12/01/2023 from [facility]. Placed in provider's inbox for review. Route to MA for scanning. [facility] 12-01-2023 Miscellaneous Notes Received 12/01/2023 from [facility]. Placed in provider's inbox for review. Route to MA for scanning. documented in this encounter [facility] 12-01-2023 Note Discharge Instructions Thank you for allowing [facility] to assist you with your healthcare needs. The following is important discharge information regarding your hospital visit. 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 Follow Up with LAVERNE MONROE Where:[address] [place] [address]- [phone] [facility] (1) Additional Information: PLEASE CALL THIS OFFICE TO SCHEDULE A HOSPITAL FOLLOW UP APPOINTMENT. Follow Up with [facility]-[phone] When:Within 1-2 days [facility] Up with [facility] [address] [place] [address]- Additional Information: The Cardiac rehab department will call you to schedule you for Phase 2. If you have any questions please call us at [phone]. Thank you. Follow Up with Patient using own medication, return to patient at discharge. When:Within 1-2 days The Following Activity and Diet Have Been Ordered for You Transfer of Care Activity - Ordered -- Lifting Restricted less than 10 pounds Driving Restricted August Shower, 12/01/23 11:21:00 EDT Transfer of Care Diet - Ordered -- Type of Diet: Regular Diet, Diet Restrictions: Cardiac diet, 12/01/23 11:21:00 EDT The Following Equipment Has Been Ordered for You Discharge Home Equipment Transfer of Care Wound Care - Ordered -- Wash chest incision and leg incision daily with soap and water, 12/01/23 11:21:00 EDT The Following Treatments Have Been Ordered for You Discharge Labs Transfer of Care Labwork - Ordered -- bmp., cbc weekly, Anemia, electrolyte imbalance, 12/01/23 11:21:00 EDT Discharge Radiology Transfer of Care Radiology - Ordered -- PA and lateral chest x-ray, Pleural effusions, Please arrive at least 1 hour prior to your appointment time with your heart surgeon and have chest x-ray done at [facility] outpatient radiology., 12/01/23 11:21:00 EDT Other Therapies Transfer of Care OT - Ordered -- Reason for therapy: General debility, STERNAl Precautions, 12/01/23 11:21:00 EDT Transfer of Care PT - Ordered -- Reason for therapy: General debility, 12/01/23 11:21:00 EDT Post Acute Orders Transfer of Care Admission Level of Care - Ordered -- Level of Care Acute Rehab, 12/01/23 11:21:51 EDT Transfer of Care Code Status - Ordered -- Full Code, Constant Order Transfer of Care Communication Order - Ordered -- Expect less than 30 day stay., 12/01/23 11:21:51 EDT Transfer of Care Labwork - Ordered -- bmp., cbc weekly, Anemia, electrolyte imbalance, 12/01/23 11:21:00 EDT Transfer of Care Orders Electronically Signed By - Ordered -- 12/01/23 11:21:00 EDT, KEZIA WALSH MD Transfer of Care Prognosis - Ordered -- Good, Patient Aware: Yes Transfer of Care Rehab Potential - Ordered -- Rehab potential good, 12/01/23 11:21:51 EDT Transfer of Care Weight Order - Ordered -- When to Weigh: Friday, Friday, Friday, "Report any changes of 2 lbs in 24 hours or 5 lbs in 1 week to your Physician." Someone Will Contact You Regarding These Home Health Referrals No home referrals have been ordered for you. No one will call you. Allergies NKA Medications Please ask your primary doctor or pharmacist before taking any other medication not listed, including over the counter drugs, herbal medications, vitamins and or supplements as they may interact with your home medications. What How Much When Why Instructions Last Dose New amiodarone (amiodarone 200 mg oral tablet) 2 tab(s) by mouth Two (2) times a day Take 400 mg (2 tablets) 2 times a day through 2023 then starting 2023 take 200 mg (1 tablet) daily for 28 days Printed Prescription 12/01/2023 @ 0800am New clopidogrel (Plavix 75 mg oral tablet) 1 tab(s) by mouth Once a day Refills: 2 Pickup at [facility]/pharmacy #[id number] Start 12/02/2023 New folic acid (folic acid 0.8 mg oral tablet) 1 tab(s) by mouth Once a day Duration: 14 Days Pickup at [facility]/pharmacy #[id number] Start 12/02/2023 New polyethylene glycol 3350 (Miralax Powder Packet) by mouth Once a day as needed for Constipation 12/01/2023 @ 0910am New traMADol (traMADol 50 mg oral tablet) 1 tab(s) by mouth Every 6 hours as needed for Pain, scale 7-10 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; Ao-dx1 w/rsvg) left leg evh 11/26/23 Acute pain Duration: 7 Days Printed Prescription 12/01/2023 @0800am Changed metoprolol (metoprolol tartrate 25 mg oral tablet) 1 tab(s) by mouth Twice daily with meals 12/01/2023 @ 0800am Unchanged acetaminophen 650 Milligram by mouth Every 6 hours as needed for as needed for pain 12/01/2023 @ 0030 Unchanged aspirin (aspirin 81 mg oral tablet, chewable) 1 tab(s) by mouth Every day 12/01/2023 @ 0800am Unchanged atorvastatin (atorvastatin 80 mg oral tablet) 1 tab(s) by mouth Daily at bedtime 11/30/2023 @ 2115pm Unchanged citalopram 40 Milligram by mouth Once a day 12/01/2023 @ 0910am Unchanged dimethyl fumarate (dimethyl fumarate 240 mg oral delayed release capsule) 1 cap by mouth Two (2) times a day 12/01/2023 @ 0910am Unchanged ferrous gluconate (ferrous gluconate 324 mg (38 mg elemental iron) oral tablet) 1 tab(s) by mouth Two (2) times a day Start 12/02/2023 Unchanged zonisamide (zonisamide 100 mg oral capsule) 3 cap by mouth Daily at bedtime 11/30/2023 @ 2115pm Unchanged zonisamide (zonisamide 100 mg oral capsule) 2 cap by mouth Every day 12/01/2023 @ 0910am Pharmacy Information [facility]/pharmacy #[id number]: [address], [place] [id number] [phone] What How Much When Comments Stop Taking enoxaparin 40 Milligram Subcutaneous Once a day Please take this list to your next doctor s visit. Bring all medications you take, including over the counter medications, herbals and other supplements with you to your doctor s visit. Patients and families are reminded to discard old lists and to update any records with all medication providers or retail pharmacies. Education Materials Incision Care, Adult An incision is a surgical cut that is made through your skin. Most incisions are closed after surgery. Your incision may be closed with stitches (sutures), ambreen, skin glue, or adhesive strips. You may need to return to your health care provider to have sutures or ambreen removed. This may occur several days to several weeks after your surgery. The incision needs to be cared for properly to prevent infection. How to care for your incision Incision care Follow instructions from your health care provider about how to take care of your incision. Make sure you: ? Wash your hands with soap and water before you change the bandage (dressing). If soap and water are not available, use hand collection teller. ? Change your dressing as told by your health care provider. ? Leave sutures, skin glue, or adhesive strips in place. These skin closures may need to stay in place for 2 weeks or longer. If adhesive strip edges start to loosen and curl up, you may trim the loose edges. Do not remove adhesive strips completely unless your health care provider tells you to do that. Check your incision area every day for signs of infection. Check for: ? More redness, swelling, or pain. ? More fluid or blood. ? Warmth. ? Pus or a bad smell. Ask your health care provider how to clean the incision. This may include: ? Using mild soap and water. ? Using a clean towel to pat the incision dry after cleaning it. ? Applying a cream or ointment. Do this only as told by your health care provider. ? Covering the incision with a clean dressing. Ask your health care provider when you can leave the incision uncovered. Do not take baths, swim, or use a hot tub until your health care provider approves. Ask your health care provider if you can take showers. You may only be allowed to take sponge baths for bathing. Medicines If you were prescribed an antibiotic medicine, cream, or ointment, take or apply the antibiotic as told by your health care provider. Do not stop taking or applying the antibiotic even if your condition improves. Take [id number]-frplmdk and prescription medicines only as told by your health care provider. General instructions Limit movement around your incision to improve healing. ? Avoid straining, lifting, or exercise for the first month, or for as long as told by your health care provider. ? Follow instructions from your health care provider about returning to your normal activities. ? Ask your health care provider what activities are safe. Protect your incision from the sun when you are outside for the first 6 months, or for as long as told by your health care provider. Apply sunscreen around the scar or cover it up. Keep all follow-up visits as told by your health care provider. This is important. Contact a health care provider if: Your have more redness, swelling, or pain around the incision. You have more fluid or blood coming from the incision. Your incision feels warm to the touch. You have pus or a bad smell coming from the incision. You have a fever or shaking chills. You are nauseous or you vomit. You are dizzy. Your sutures or ambreen come undone. Get help right away if: You have a red streak coming from your incision. Your incision bleeds through the dressing and the bleeding does not stop with gentle pressure. The edges of your incision open up and separate. You have severe pain. You have a rash. You are confused. You faint. You have trouble breathing and a fast heartbeat. This information is not intended to replace advice given to you by your health care provider. Make sure you discuss any questions you have with your health care provider. Document Released: 10/18/2005 Document Revised: 04/02/2019 Document Reviewed: 10/16/2016 [employer] Patient Education 2020 [employer] Additional Information VACCINATE! IT SAVES LIVES! Members of the community who have not yet received the COVID-19 vaccine and would like to receive it can visit one of [facility] vaccine clinics. There are many vaccine clinic locations within the [facility]. For locations and available times, please visit [email or web address] hio.[email or web address] It is important to note that some COVID mobile vaccine clinics are held outdoors and may be canceled in rainy or stormy conditions. To learn more about pediatric vaccinations (ages 5-11), we invite you to visit the [facility] webpage. https://www.[facility].org/p ages/3647-Psyvv-Qpxmolzcztw-Freq vzefcv-Lmved-Nxjjdfoph.html To learn more about the COVID-19 vaccine, we invite you to visit the CDC website for a list of frequently asked questions.https://www.cdc.gov/co ronavirus/2019-ncov/vaccines/faq .html [facility] Patient Portal Access Instructions: Stay connected with your healthcare team and access your personal medical information anytime with the [facility] Patient Portal. Please follow the directions below to create your [facility] account: 1.Access the email account you provided upon registration to the hospital/physician office.2.Look for an invitation email from [facility].3.Open the email and access the invitation link: Accept Invitation to [facility].4.Fill in the required gonzalez to create your account. To access your account, visit [email or web address]. Click the blue button labeled "Access Patient Portal" and then log in with the username and password that you created in the steps above. You will be able to view your test results, lab results, a summary of your visits, upcoming appointments and more. There is also a convenient messaging option where you can send secure messages to your provider. In addition, you will have the ability to download any documents or summaries to your computer and/or send the information securely to a physician. Remember that your healthcare information is confidential, so carefully consider who you will allow to register on the [facility] Patient Portal for access to your information. You can also access the [facility] Patient Portal on the [employer] [facility] david. Simply click on "Patient Portal" and then log into your account. If you would like to receive a full copy of your medical records, please contact the [facility] Medical Records Department by calling [phone], Friday through Friday between 8 a.m. and 4:30 p.m. HOW TO SAFELY DISPOSE OF PRESCRIPTION MEDICATIONS Please use one of the following methods to safely dispose of your unused medications. 1.Use a drug disposal kit: the drug disposal pouch allows you to safely discard your old and unused drugs. Ask your nurse to give you one when you are discharged.2.Visit a local take-back location: Many local pharmacies and police departments have programs that collect old and unwanted prescription drugs. Call your local pharmacy or go to http://[employer]/3I5Sa5l to find one close to you.3.Make use of household items: Use cat litter or old coffee grounds to dispose medications if other options are not available. Mix your drugs with these household products, seal them in an airtight container and throw it into the garbage. Call [facility]: [phone] to be sure your drugs can be disposed of in this way. Some medicines may require a different approach.4.Never flush your medications down the toilet. IF YOU HAVE BEEN PRESCRIBED AN OPIOID FOR PAIN If you have been prescribed an opioid (such as hydrocodone, oxycodone or morphine), it is critical to understand the possible side effects and risks of opioid pain medications. Even when taken as directed, opioids can have several side effects including: Tolerance, meaning you might need to take more of a medication for the same pain relief. Nausea, vomiting and/or constipation. Sleepiness, dizziness, dry mouth, confusion, depression or itching. Physical dependence, meaning you have withdrawal symptoms when a medication is stopped, can develop within a few days. KNOW YOUR RESPONSIBILITIES It is important to know exactly how much and how often to take the opioid pain medications you are prescribed. Never take opioids in higher amounts or more often than prescribed. Do not combine opioids with alcohol or other drugs that cause drowsiness, such as benzodiazepines, also known as benzos, including diazepam and alprazolam, muscle relaxants or sleep aids. Never sell or share prescription opioids. This is illegal. Store opioids in a secure place and out of reach of others (including children, family, friends and visitors). The last page of this document has been signed and retained as a CHART COPY. Signatures Patient Education Materials Incision Care, Adult Medication Leaflets My discharge plan and instructions have been reviewed and explained to me and IMISTY ROGER S understand my current condition and have read and understand these discharge instructions. I have received a written copy of the plan/instructions. If I have questions, I am aware that I should contact my doctor. 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 The following is important discharge information regarding your hospital visit. 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 Follow Up with LAVERNE MONROE Where:[address] [place], [place] [id number]- [phone] Business (1) Additional Information: PLEASE CALL THIS OFFICE TO SCHEDULE A HOSPITAL FOLLOW UP APPOINTMENT. Follow Up with [facility]-[phone] When:Within 1-2 days Follow Up with Cardiac Rehab [facility] Where:[facility] [address] [place] [address]- Additional Information: The Cardiac rehab department will call you to schedule you for Phase 2. If you have any questions please call us at [phone]. Thank you. Follow Up with Patient using own medication, return to patient at discharge. When:Within 1-2 days The Following Activity and Diet Have Been Ordered for You Transfer of Care Activity - Ordered -- Lifting Restricted less than 10 pounds Driving Restricted August Shower, 12/01/23 11:21:00 EDT Transfer of Care Diet - Ordered -- Type of Diet: Regular Diet, Diet Restrictions: Cardiac diet, 12/01/23 11:21:00 EDT The Following Equipment Has Been Ordered for You Discharge Home Equipment Transfer of Care Wound Care - Ordered -- Wash chest incision and leg incision daily with soap and water, 12/01/23 11:21:00 EDT The Following Treatments Have Been Ordered for You Discharge Labs Transfer of Care Labwork - Ordered -- bmp., cbc weekly, Anemia, electrolyte imbalance, 12/01/23 11:21:00 EDT Discharge Radiology Transfer of Care Radiology - Ordered -- PA and lateral chest x-ray, Pleural effusions, Please arrive at least 1 hour prior to your appointment time with your heart surgeon and have chest x-ray done at [facility] outpatient radiology., 12/01/23 11:21:00 EDT Other Therapies Transfer of Care OT - Ordered -- Reason for therapy: General debility, STERNAl Precautions, 12/01/23 11:21:00 EDT Transfer of Care PT - Ordered -- Reason for therapy: General debility, 12/01/23 11:21:00 EDT Post Acute Orders Transfer of Care Admission Level of Care - Ordered -- Level of Care Acute Rehab, 12/01/23 11:21:51 EDT Transfer of Care Code Status - Ordered -- Full Code, Constant Order Transfer of Care Communication Order - Ordered -- Expect less than 30 day stay., 12/01/23 11:21:51 EDT Transfer of Care Labwork - Ordered -- bmp., cbc weekly, Anemia, electrolyte imbalance, 12/01/23 11:21:00 EDT Transfer of Care Orders Electronically Signed By - Ordered -- 12/01/23 11:21:00 EDT, KEZIA WALSH MD Transfer of Care Prognosis - Ordered -- Good, Patient Aware: Yes Transfer of Care Rehab Potential - Ordered -- Rehab potential good, 12/01/23 11:21:51 EDT Transfer of Care Weight Order - Ordered -- When to Weigh: Friday, Friday, Friday, "Report any changes of 2 lbs in 24 hours or 5 lbs in 1 week to your Physician." Someone Will Contact You Regarding These Home Health Referrals No home referrals have been ordered for you. No one will call you. Allergies NKA Medications Please ask your primary doctor or pharmacist before taking any other medication not listed, including over the counter drugs, herbal medications, vitamins and or supplements as they may interact with your home medications. What How Much When Why Instructions Last Dose New amiodarone (amiodarone 200 mg oral tablet) 2 tab(s) by mouth Two (2) times a day Take 400 mg (2 tablets) 2 times a day through 2023 then starting 2023 take 200 mg (1 tablet) daily for 28 days Printed Prescription New clopidogrel (Plavix 75 mg oral tablet) 1 tab(s) by mouth Once a day Refills: 2 Pickup at [facility]/pharmacy #[id number] New folic acid (folic acid 0.8 mg oral tablet) 1 tab(s) by mouth Once a day Duration: 14 Days Pickup at [facility]/pharmacy #[id number] New polyethylene glycol 3350 (Miralax Powder Packet) by mouth Once a day as needed for Constipation New traMADol (traMADol 50 mg oral tablet) 1 tab(s) by mouth Every 6 hours as needed for Pain, scale 7-10 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; Ao-dx1 w/rsvg) left leg evh 11/26/23 Acute pain Duration: 7 Days Printed Prescription Changed metoprolol (metoprolol tartrate 25 mg oral tablet) 1 tab(s) by mouth Twice daily with meals Unchanged acetaminophen 650 Milligram by mouth Every 6 hours as needed for as needed for pain Unchanged aspirin (aspirin 81 mg oral tablet, chewable) 1 tab(s) by mouth Every day Unchanged atorvastatin (atorvastatin 80 mg oral tablet) 1 tab(s) by mouth Daily at bedtime Unchanged citalopram 40 Milligram by mouth Once a day Unchanged dimethyl fumarate (dimethyl fumarate 240 mg oral delayed release capsule) 1 cap by mouth Two (2) times a day Unchanged ferrous gluconate (ferrous gluconate 324 mg (38 mg elemental iron) oral tablet) 1 tab(s) by mouth Two (2) times a day Unchanged zonisamide (zonisamide 100 mg oral capsule) 3 cap by mouth Daily at bedtime Unchanged zonisamide (zonisamide 100 mg oral capsule) 2 cap by mouth Every day Pharmacy Information [facility]/pharmacy #[id number]: [address], [place] [id number] [phone] What How Much When Comments Stop Taking enoxaparin 40 Milligram Subcutaneous Once a day Please take this list to your next doctor s visit. Bring all medications you take, including over the counter medications, herbals and other supplements with you to your doctor s visit. Patients and families are reminded to discard old lists and to update any records with all medication providers or retail pharmacies. Education Materials Incision Care, Adult An incision is a surgical cut that is made through your skin. Most incisions are closed after surgery. Your incision may be closed with stitches (sutures), ambreen, skin glue, or adhesive strips. You may need to return to your health care provider to have sutures or ambreen removed. This may occur several days to several weeks after your surgery. The incision needs to be cared for properly to prevent infection. How to care for your incision Incision care Follow instructions from your health care provider about how to take care of your incision. Make sure you: ? Wash your hands with soap and water before you change the bandage (dressing). If soap and water are not available, use hand collection teller. ? Change your dressing as told by your health care provider. ? Leave sutures, skin glue, or adhesive strips in place. These skin closures may need to stay in place for 2 weeks or longer. If adhesive strip edges start to loosen and curl up, you may trim the loose edges. Do not remove adhesive strips completely unless your health care provider tells you to do that. Check your incision area every day for signs of infection. Check for: ? More redness, swelling, or pain. ? More fluid or blood. ? Warmth. ? Pus or a bad smell. Ask your health care provider how to clean the incision. This may include: ? Using mild soap and water. ? Using a clean towel to pat the incision dry after cleaning it. ? Applying a cream or ointment. Do this only as told by your health care provider. ? Covering the incision with a clean dressing. Ask your health care provider when you can leave the incision uncovered. Do not take baths, swim, or use a hot tub until your health care provider approves. Ask your health care provider if you can take showers. You may only be allowed to take sponge baths for bathing. Medicines If you were prescribed an antibiotic medicine, cream, or ointment, take or apply the antibiotic as told by your health care provider. Do not stop taking or applying the antibiotic even if your condition improves. Take bsmm-oeg-nijhzoj and prescription medicines only as told by your health care provider. General instructions Limit movement around your incision to improve healing. ? Avoid straining, lifting, or exercise for the first month, or for as long as told by your health care provider. ? Follow instructions from your health care provider about returning to your normal activities. ? Ask your health care provider what activities are safe. Protect your incision from the sun when you are outside for the first 6 months, or for as long as told by your health care provider. Apply sunscreen around the scar or cover it up. Keep all follow-up visits as told by your health care provider. This is important. Contact a health care provider if: Your have more redness, swelling, or pain around the incision. You have more fluid or blood coming from the incision. Your incision feels warm to the touch. You have pus or a bad smell coming from the incision. You have a fever or shaking chills. You are nauseous or you vomit. You are dizzy. Your sutures or ambreen come undone. Get help right away if: You have a red streak coming from your incision. Your incision bleeds through the dressing and the bleeding does not stop with gentle pressure. The edges of your incision open up and separate. You have severe pain. You have a rash. You are confused. You faint. You have trouble breathing and a fast heartbeat. This information is not intended to replace advice given to you by your health care provider. Make sure you discuss any questions you have with your health care provider. Document Released: 10/18/2005 Document Revised: 04/02/2019 Document Reviewed: 10/16/2016 [employer] Patient Education 2020 [employer] Additional Information VACCINATE! IT SAVES LIVES! Members of the community who have not yet received the COVID-19 vaccine and would like to receive it can visit one of [facility] vaccine clinics. There are many vaccine clinic locations within the [facility]. For locations and available times, please visit [email or web address] [email or web address]/. It is important to note that some COVID mobile vaccine clinics are held outdoors and may be canceled in rainy or stormy conditions. To learn more about pediatric vaccinations (ages 5-11), we invite you to visit the [facility] webpage. https://www.[facility].org/p ages/7164-Hahou-Nahjeraarsi-Freq fidknx-Prmeq-Pjdcurhbq.html To learn more about the COVID-19 vaccine, we invite you to visit the CDC website for a list of frequently asked questions.https://www.cdc.gov/co ronavirus/2019-ncov/vaccines/faq .html [facility] Patient Portal Access Instructions: Stay connected with your healthcare team and access your personal medical information anytime with the [facility] Patient Portal. Please follow the directions below to create your [facility] account: 1.Access the email account you provided upon registration to the hospital/physician office.2.Look for an invitation email from [facility].3.Open the email and access the invitation link: Accept Invitation to [facility].4.Fill in the required gonzalez to create your account. To access your account, visit [email or web address]. Click the blue button labeled "Access Patient Portal" and then log in with the username and password that you created in the steps above. You will be able to view your test results, lab results, a summary of your visits, upcoming appointments and more. There is also a convenient messaging option where you can send secure messages to your provider. In addition, you will have the ability to download any documents or summaries to your computer and/or send the information securely to a physician. Remember that your healthcare information is confidential, so carefully consider who you will allow to register on the [facility] Patient Portal for access to your information. You can also access the [facility] Patient Portal on the [employer] david. Simply click on "Patient Portal" and then log into your account. If you would like to receive a full copy of your medical records, please contact the [facility] Medical Records Department by calling [phone], Friday through Friday between 8 a.m. and 4:30 p.m. HOW TO SAFELY DISPOSE OF PRESCRIPTION MEDICATIONS Please use one of the following methods to safely dispose of your unused medications. 1.Use a drug disposal kit: the drug disposal pouch allows you to safely discard your old and unused drugs. Ask your nurse to give you one when you are discharged.2.Visit a local take-back location: Many local pharmacies and police departments have programs that collect old and unwanted prescription drugs. Call your local pharmacy or go to http://[employer]/4A2Px9f to find one close to you.3.Make use of household items: Use cat litter or old coffee grounds to dispose medications if other options are not available. Mix your drugs with these household products, seal them in an airtight container and throw it into the garbage. Call [facility]: [phone] to be sure your drugs can be disposed of in this way. Some medicines may require a different approach.4.Never flush your medications down the toilet. IF YOU HAVE BEEN PRESCRIBED AN OPIOID FOR PAIN If you have been prescribed an opioid (such as hydrocodone, oxycodone or morphine), it is critical to understand the possible side effects and risks of opioid pain medications. Even when taken as directed, opioids can have several side effects including: Tolerance, meaning you might need to take more of a medication for the same pain relief. Nausea, vomiting and/or constipation. Sleepiness, dizziness, dry mouth, confusion, depression or itching. Physical dependence, meaning you have withdrawal symptoms when a medication is stopped, can develop within a few days. KNOW YOUR RESPONSIBILITIES It is important to know exactly how much and how often to take the opioid pain medications you are prescribed. Never take opioids in higher amounts or more often than prescribed. Do not combine opioids with alcohol or other drugs that cause drowsiness, such as benzodiazepines, also known as benzos, including diazepam and alprazolam, muscle relaxants or sleep aids. Never sell or share prescription opioids. This is illegal. Store opioids in a secure place and out of reach of others (including children, family, friends and visitors). The last page of this document has been signed and retained as a CHART COPY. Signatures Patient Education Materials Incision Care, Adult Medication Leaflets My discharge plan and instructions have been reviewed and explained to me and IMISTY ROGER S understand my current condition and have read and understand these discharge instructions. I have received a written copy of the plan/instructions. If I have questions, I am aware that I should contact my doctor. Patient/Crib Attendant Signature: Date/Time: Relationship to Patient: Witness Name/Signature: Date/Time: [facility] 12-01-2023 Hospital Discharg e instructions Patient Education 12/01/2023 11:24:57 Incision Care, Adult Incision Care, Adult An incision is a surgical cut that is made through your skin. Most incisions are closed after surgery. Your incision may be closed with stitches (sutures), ambreen, skin glue, or adhesive strips. You may need to return to your health care provider to have sutures or ambreen removed. This may occur several days to several weeks after your surgery. The incision needs to be cared for properly to prevent infection. How to care for your incision Incision care Follow instructions from your health care provider about how to take care of your incision. Make sure you: ?Wash your hands with soap and water before you change the bandage (dressing). If soap and water are not available, use hand collection teller. ?Change your dressing as told by your health care provider. ?Leave sutures, skin glue, or adhesive strips in place. These skin closures may need to stay in place for 2 weeks or longer. If adhesive strip edges start to loosen and curl up, you may trim the loose edges. Do not remove adhesive strips completely unless your health care provider tells you to do that. Check your incision area every day for signs of infection. Check for: ?More redness, swelling, or pain. ?More fluid or blood. ?Warmth. ?Pus or a bad smell. Ask your health care provider how to clean the incision. This may include: ?Using mild soap and water. ?Using a clean towel to pat the incision dry after cleaning it. ?Applying a cream or ointment. Do this only as told by your health care provider. ?Covering the incision with a clean dressing. Ask your health care provider when you can leave the incision uncovered. Do not take baths, swim, or use a hot tub until your health care provider approves. Ask your health care provider if you can take showers. You may only be allowed to take sponge baths for bathing. Medicines If you were prescribed an antibiotic medicine, cream, or ointment, take or apply the antibiotic as told by your health care provider. Do not stop taking or applying the antibiotic even if your condition improves. Take ebgk-ybt-ygppaao and prescription medicines only as told by your health care provider. General instructions Limit movement around your incision to improve healing. ?Avoid straining, lifting, or exercise for the first month, or for as long as told by your health care provider. ?Follow instructions from your health care provider about returning to your normal activities. ?Ask your health care provider what activities are safe. Protect your incision from the sun when you are outside for the first 6 months, or for as long as told by your health care provider. Apply sunscreen around the scar or cover it up. Keep all follow-up visits as told by your health care provider. This is important. Contact a health care provider if: Your have more redness, swelling, or pain around the incision. You have more fluid or blood coming from the incision. Your incision feels warm to the touch. You have pus or a bad smell coming from the incision. You have a fever or shaking chills. You are nauseous or you vomit. You are dizzy. Your sutures or ambreen come undone. Get help right away if: You have a red streak coming from your incision. Your incision bleeds through the dressing and the bleeding does not stop with gentle pressure. The edges of your incision open up and separate. You have severe pain. You have a rash. You are confused. You faint. You have trouble breathing and a fast heartbeat. This information is not intended to replace advice given to you by your health care provider. Make sure you discuss any questions you have with your health care provider. Document Released: 10/18/2005 Document Revised: 04/02/2019 Document Reviewed: 10/16/2016 [employer] Patient Education 2020 [employer]. Follow Up Care 11/24/2023 14:21:16 With:JORDAN HENRY MD, Thoracic Service, Vascular Service Address: [address] [facility] [address] [facility] [place] [address]- [phone] When: Unknown Comments:This office will call you with follow up appt. With:LAVERNE MONROE Address: [address] [place] [address] [place] [address]- [phone] Business (1) When: Unknown Comments:PLEASE CALL THIS OFFICE TO SCHEDULE A HOSPITAL FOLLOW UP APPOINTMENT. With:Daryn [facility]-[phone] Address:Unknown When:1-2 days With:Cardiac [facility] Address: [facility] [address] [place] [address]- When: Unknown Comments:The Cardiac rehab department will call you to schedule you for Phase 2. If you have any questions please call us at [phone]. Thank you. With:Patient using own medication, return to patient at discharge. Address:Unknown When:1-2 days [facility] 12-01-2023 Note Date of Service 12/01/2023 Temporary ventricular pacing wires cut and dropped. Patient tolerated well. Bedrest x 1 hour Digitally Signed by JASMINA LIRA on 12/01/2023 11:14 AM [facility] 12-01-2023 Note Date of Service 12/01/2023 Chief Complaint POD #5 This is a 68-year-old male with past medical history of seizures (last known 2011), multiple sclerosis, anxiety, depression, and iron deficiency anemia who presented to [facility] with left arm pain and retrosternal chest pain with exertion. Stress test showed possible ischemia in the LAD territory. Echocardiogram showed an EF of 70%. He then underwent a heart catheterization that showed 95% mid LAD stenosis and 95% stenosis of the first diagonal. He was transferred to [facility] for surgical revascularization. He underwent and off pump CABG x 2 on 11/26/[address] Henry. He tolerated the procedure well and was transferred to the CV SICU in stable condition. Extubated his operative day. MS and seizure medications restarted. Postop day #1. Beta-junior initiated. Had atrial fibrillation treated with amiodarone protocol. Postop day #2. Remains in atrial fibrillation. Will give additional IV amiodarone bolus today. Beta-junior titrated up. Discontinue chest tubes. Transfused with 1 unit of blood. Postop day #3. Transfer to stepdown. Remains in normal sinus rhythm. H&H stable today. Postop day #4. Having short runs of atrial fibrillation, rate in the 70s to 80s. 1 g magnesium bolus IV. Has since converted to normal sinus rhythm. WBC 17.8. No obvious signs of infection, afebrile. Continue to monitor. [1] POD #5 Labs and chest x-ray are stable, patient ready for discharge today to [facility] Up in chair, eating breakfast, no new complaints Objective Vitals and Measurements T: 36.7 C (Oral) TMIN: 36.4 C (Oral) TMAX: 37.1 C (Oral) HR: 78 (Monitored) RR: 18 BP: 118/79 SpO2: 98% WT: 86.6 kg Intake and Output 7AM Yesterday to 7AM Today Intake and Output (Last 24 hours) Intake Oral Intake 800.00 Output Urine Voided 600.00 Stool Count 0.00 Urine Count 1.00 Total Summary Total Intake 800.00 Total Output 600.00 Fluid Balance 200.00 Physical Exam Neuro alert, oriented x 3, appropriate, moves all extremities Lungs are clear bilaterally respirations nonlabored, room air SaO2 95 to 97% Heart S1 and S2 sinus rhythm in the 70s, temporary ventricular pacing wires intact Abdomen is soft nontender bowel sounds present, positive very small bowel movement yesterday voiding without difficulty, urine output 900 mL +1 void not measured in the last 24 hours, I&O balance -240 mL Extremities are well-perfused, trace ankle edema, nonpitting Skin midsternal chest incision open to air well-approximated, Steri-Strips intact, no drainage, left leg incision open to air well-approximated no drainage, ecchymotic, slightly firm around the incision in the left thigh Weight Current Weight Dosing Weight: 86.5 kg (11/30/23) Current Weight: 86.6 kg (12/01/23) Dosing Weight: 83.8 kg (11/24/23) Current Weight: 86 kg (11/29/23) Medications Medications (39) Active Scheduled: (16) amiodarone 200 mg tablet 400 mg 2 tab(s), Oral, BIDM amiodarone 200 mg tablet 200 mg 1 tab(s), Oral, qDayM aspirin 325 mg EC 325 mg 1 tab(s), Oral, qDayM atorvastatin 40 mg tablet 40 mg 1 tab(s), Oral, qDay citalopram 40 mg tablet 40 mg 1 tab(s), Oral, qDay clopidogrel 75 mg Tablet 75 mg 1 tab(s), Oral, qDay dimethyl fumarate [address] capsule 240 mg 1 cap(s), Oral, BID docusate calcium 240 mg Capsule 240 mg 1 cap(s), Oral, BID enoxaparin 40 mg/ 0.4mL syringe 40 mg 0.4 mL, Subcutaneous, qDay metoprolol tartrate 25 mg tablet 25 mg 1 tab(s), Oral, BIDM multivitamin (Chromagen Forte) with iron Vitamin B Complex with C, Folic Acid and Iron tablet 1 tab(s), Oral, qDay mupirocin 2% Ointment 22 Gram(s) tube 1 david, Nostril, each, q12h pantoprazole 40 mg EC tablet 40 mg 1 tab(s), Oral, qDayAC potassium chloride 20 mEq ER tablet 20 mEq 1 tab(s), Oral, Once zonisamide 100 mg Capsule 300 mg 3 cap(s), Oral, qHS zonisamide 100 mg Capsule 200 mg 2 cap(s), Oral, Daily Continuous: (4) amiodarone 450 mg [0.5 mg/min] + sodium chloride ELISSA 250 mL 250 mL, Intravenous, 16.67 mL/hr Lactated Ringers 500 mL 500 mL, Intravenous, 100 mL/hr nicardipine 25 mg [5 mg/hr] + Sodium Chloride 0.9% 240 mL 240 mL, Intravenous, 50 mL/hr norepinephrine 8 mg [2 mcg/min] + NS Premix Diluent 250 mL 250 mL, Intravenous, 3.75 mL/hr PRN: (19) acetaminophen 325 mg Tablet 650 mg 2 tab(s), Oral, q4h Al hydrox/Mg hydrox/simethicone 200-200-20 mg/5 mL Susp UD 30 mL, Oral, q2h bisacodyl 10 mg Suppository 10 mg 1 supp, Rectal, qDay dextrose 50% Solution Disp syringe 50 mL 12.5 gram(s) 25 mL, IV Push, AsDirected magnesium gluconate 500 mg tablet 500 mg 1 tab(s), Oral, BID magnesium hydroxide 8% Suspension 30 mL UD 30 mL, Oral, qDay magnesium sulfate 4g/50mL PMX 4 g 50 mL, IV Piggyback, AsDirected magnesium sulfate PMX 2 g 50 mL, IV Piggyback, AsDirected magnesium sulfate PMX 2 gram(s) 50 mL, IV Piggyback, AsDirected ondansetron 2 mg/ 1 mL 2 mL INJ 4 mg 2 mL, IV Push, q4h phenol topical 1.4% Spr 1 spray(s), Topical, q1h polyethylene glycol 3350 - UD packet 17 gram(s) 15 mL, Oral, qDay polyethylene glycol 3350 - UD packet 17 gram(s) 15 mL, Oral, qDay potassium chloride (PMX) 20 mEq/100 mL 20 mEq 100 mL, IV Piggyback, AsDirected potassium chloride (PMX) 20 mEq/100 mL 20 mEq 100 mL, IV Piggyback, AsDirected potassium chloride 10 mEq ER capsule 20 mEq 2 cap(s), Oral, AsDirected sodium biphosphate-sodium phosphate 19 gm-7 gm Enema 133 mL, Rectal, Once tramadol 50 mg Tablet 50 mg 1 tab(s), Oral, q4h tramadol 50 mg Tablet 25 mg 0.5 tab(s), Oral, q4h Lab Results 11/30 04:05 WBC: 13.8 H Hgb: 7.6 L Hct: 23.6 L Platelet: 330 Neutrophil %: 73.1 Glucose Level: 105 Sodium Level: 137 Potassium Level: 3.9 BUN: 23.0 H Creatinine Lvl (s): 0.95 11/29 03:50 WBC: 17.8 H Hgb: 8.4 L Hct: 26.2 L Platelet: 333 Neutrophil %: 74.5 Glucose Level: 127 H Sodium Level: 136 Potassium Level: 4.1 BUN: 24.0 H Creatinine Lvl (s): 0.89 EKG No qualifying data available. Assessment/Plan 1. 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 Acute blood loss anemia H&H is 7.6 and 23, patient is on iron at home 3. AF (paroxysmal atrial fibrillation) Remains in sinus rhythm, in the 70s, on p.o. amiodarone, no atrial fibrillation since yesterday morning 4. Iron deficiency anemia 5. Multiple sclerosis On dimethyl fumarole as at home 6. Anxiety and depression celexa as ahome 7. Seizure disorder zonisamide as at home Orders: clopidogrel(Plavix), 75 mg= 1 tab(s), Oral, qDay polyethylene glycol 3350(Miralax Powder Packet), 17 gram(s)= 15 mL, Oral, qDay, PRN potassium chloride, 20 mEq= 1 tab(s), Oral, Once Plan: Add Plavix 75 mg daily secondary to off-pump CABG Replace potassium Okay for discharge today to [facility] if they can accept Patient seen and discussed with Dr. Walsh [1] Progress Note; CAMERON RIDDLE 11/30/2023 13:13 EDT Digitally Signed by JASMINA LIRA on 12/01/2023 10:56 AM [facility] 12-01-2023 Note ORIGINAL EXAMINATION: ONE XRAY VIEW OF THE CHEST 12/01/2023 5:30 am COMPARISON: None. HISTORY: ORDERING SYSTEM PROVIDED HISTORY: Reason for Exam: Abnormal lung sounds FINDINGS: Left subclavian central venous catheter tube tip terminates in the SVC. Sternotomy wires are present the chest wall. No pneumothorax. No large effusion. No focal consolidation. IMPRESSION: No acute findings. Interpreted by: Daniela Triana MD Preliminary Report By: Daniela Triana MD Electronically signed By Daniela Triana MD Dictated Date: 12/01/2023 5:40:25 AM Prelim Date: 12/01/2023 5:57:46 AM Sign Date: 12/01/2023 5:57:46 AM Ordering Provider: CAMERON RIDDLE [facility] 11-30-2023 Note Date of Service 11/30/2023 postop day #4 Chief Complaint This is a 68-year-old male with past medical history of seizures (last known 2011), multiple sclerosis, anxiety, depression, and iron deficiency anemia who presented to [facility] with left arm pain and retrosternal chest pain with exertion. Stress test showed possible ischemia in the LAD territory. Echocardiogram showed an EF of 70%. He then underwent a heart catheterization that showed 95% mid LAD stenosis and 95% stenosis of the first diagonal. He was transferred to [facility] for surgical revascularization. He underwent and off pump CABG x 2 on 11/26/[address] Henry. He tolerated the procedure well and was transferred to the CV SICU in stable condition. Extubated his operative day. MS and seizure medications restarted. Postop day #1. Beta-junior initiated. Had atrial fibrillation treated with amiodarone protocol. Postop day #2. Remains in atrial fibrillation. Will give additional IV amiodarone bolus today. Beta-junior titrated up. Discontinue chest tubes. Transfused with 1 unit of blood. Postop day #3. Transfer to stepdown. Remains in normal sinus rhythm. H&H stable today. Postop day #4. Having short runs of atrial fibrillation, rate in the 70s to 80s. 1 g magnesium bolus IV. Has since converted to normal sinus rhythm. WBC 17.8. No obvious signs of infection, afebrile. Continue to monitor. Subjective Sitting up in the chair, no specific complaints offered Objective Vitals and Measurements T: 36.7 C (Oral) TMIN: 36.7 C (Oral) TMAX: 37.1 C (Oral) HR: 66 (Monitored) RR: 18 BP: 98/58 BP: 120/60(Line) SpO2: 99% WT: 86.5 kg Intake and Output 7AM Yesterday to 7AM Today Intake and Output (Last 24 hours) Intake Oral Intake 1040.00 Output Urine Voided 600.00 Stool Count 1.00 Urine Count 6.00 Total Summary Total Intake 1040.00 Total Output 600.00 Fluid Balance 440.00 Physical Exam Lungs: Bilateral, clear, respirations easy regular nonlabored, on room air with SaO2 of 95% Heart: regular S1-S2, monitor normal sinus rhythm Incision: Midsternal incision open to air with Steri-Strips, left leg incision open to air without drainage Abdomen: Soft, nontender, bowel sounds present, + BM Neurological: Intact, unsteady with walking, right foot push and pull weaker than left Extremities: Well-perfused Temporary pacemaker wire intact Central line continue poor IV access Discharge plan: Pending PT has recommended [facility] for [facility] rehab Weight Current Weight Dosing Weight: 86.5 kg (11/30/23) Current Weight: 86 kg (11/29/23) Dosing Weight: 83.8 kg (11/24/23) Current Weight: 86.9 kg (11/28/23) Medications Medications (36) Active Scheduled: (14) amiodarone 200 mg tablet 400 mg 2 tab(s), Oral, BIDM amiodarone 200 mg tablet 200 mg 1 tab(s), Oral, qDayM aspirin 325 mg EC 325 mg 1 tab(s), Oral, qDayM atorvastatin 40 mg tablet 40 mg 1 tab(s), Oral, qDay citalopram 40 mg tablet 40 mg 1 tab(s), Oral, qDay dimethyl fumarate [address] capsule 240 mg 1 cap(s), Oral, BID docusate calcium 240 mg Capsule 240 mg 1 cap(s), Oral, BID enoxaparin 40 mg/ 0.4mL syringe 40 mg 0.4 mL, Subcutaneous, qDay metoprolol tartrate 25 mg tablet 25 mg 1 tab(s), Oral, BIDM multivitamin (Chromagen Forte) with iron Vitamin B Complex with C, Folic Acid and Iron tablet 1 tab(s), Oral, qDay mupirocin 2% Ointment 22 Gram(s) tube 1 david, Nostril, each, q12h pantoprazole 40 mg EC tablet 40 mg 1 tab(s), Oral, qDayAC zonisamide 100 mg Capsule 300 mg 3 cap(s), Oral, qHS zonisamide 100 mg Capsule 200 mg 2 cap(s), Oral, Daily Continuous: (4) amiodarone 450 mg [0.5 mg/min] + sodium chloride ELISSA 250 mL 250 mL, Intravenous, 16.67 mL/hr Lactated Ringers 500 mL 500 mL, Intravenous, 100 mL/hr nicardipine 25 mg [5 mg/hr] + Sodium Chloride 0.9% 240 mL 240 mL, Intravenous, 50 mL/hr norepinephrine 8 mg [2 mcg/min] + NS Premix Diluent 250 mL 250 mL, Intravenous, 3.75 mL/hr PRN: (18) acetaminophen 325 mg Tablet 650 mg 2 tab(s), Oral, q4h Al hydrox/Mg hydrox/simethicone 200-200-20 mg/5 mL Susp UD 30 mL, Oral, q2h bisacodyl 10 mg Suppository 10 mg 1 supp, Rectal, qDay dextrose 50% Solution Disp syringe 50 mL 12.5 gram(s) 25 mL, IV Push, AsDirected magnesium gluconate 500 mg tablet 500 mg 1 tab(s), Oral, BID magnesium hydroxide 8% Suspension 30 mL UD 30 mL, Oral, qDay magnesium sulfate 4g/50mL PMX 4 g 50 mL, IV Piggyback, AsDirected magnesium sulfate PMX 2 g 50 mL, IV Piggyback, AsDirected magnesium sulfate PMX 2 gram(s) 50 mL, IV Piggyback, AsDirected ondansetron 2 mg/ 1 mL 2 mL INJ 4 mg 2 mL, IV Push, q4h phenol topical 1.4% Spr 1 spray(s), Topical, q1h polyethylene glycol 3350 - UD packet 17 gram(s) 15 mL, Oral, qDay potassium chloride (PMX) 20 mEq/100 mL 20 mEq 100 mL, IV Piggyback, AsDirected potassium chloride (PMX) 20 mEq/100 mL 20 mEq 100 mL, IV Piggyback, AsDirected potassium chloride 10 mEq ER capsule 20 mEq 2 cap(s), Oral, AsDirected sodium biphosphate-sodium phosphate 19 gm-7 gm Enema 133 mL, Rectal, Once tramadol 50 mg Tablet 50 mg 1 tab(s), Oral, q4h tramadol 50 mg Tablet 25 mg 0.5 tab(s), Oral, q4h Lab Results 11/29 03:50 WBC: 17.8 H Hgb: 8.4 L Hct: 26.2 L Platelet: 333 Neutrophil %: 74.5 Glucose Level: 127 H Sodium Level: 136 Potassium Level: 4.1 BUN: 24.0 H Creatinine Lvl (s): 0.89 11/28 20:06 Potassium Level: 3.6 11/28 03:52 WBC: 16.7 H Hgb: 8.1 L Hct: 24.4 L Platelet: 267 Neutrophil %: 75.9 H Glucose Level: 99 Sodium Level: 137 Potassium Level: 3.9 BUN: 23.0 H Creatinine Lvl (s): 0.87 Imaging Results and Diagnostics (11/30/2023 06:18 EDT XR Chest 2 Views) ORIGINAL EXAMINATION: TWO XRAY VIEWS OF THE CHEST 11/30/2023 6:18 am COMPARISON: None. HISTORY: ORDERING SYSTEM PROVIDED HISTORY: Reason for Exam: abnormal breath sounds FINDINGS: Left subclavian central venous catheter tube in the SVC. Sternotomy wires in the chest wall. Heart size is stable. Small bilateral effusions. Hazy airspace disease at the lung bases. IMPRESSION: Small bilateral effusions. Hazy airspace disease at the lung bases. [1] Assessment/Plan 1. 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 Acute blood loss anemia Hemoglobin 8.4/hematocrit 26.2 Stable No signs of active bleeding 3. AF (paroxysmal atrial fibrillation) Currently in normal sinus rhythm On metoprolol and p.o. amiodarone having short runs of atrial fibrillation this morning 1 g magnesium IV given 4. Iron deficiency anemia 5. Multiple sclerosis On home dimethyl fumarole 6. Seizure disorder On home zonisamide 7. Anxiety and depression On home Celexa Continue to increase ambulation as tolerated Continue pulmonary toilet 1 g magnesium IV WBCs 17.8 this morning, afebrile, no signs of infection Repeat CBC and BMP and chest x-ray in a.m. Patient seen and discussed with Dr. Hoyt [1] XR Chest 2 Views; DANIELA TRIANA MD 11/30/2023 06:18 EDT Digitally Signed by CAMERON RIDDLE on 11/30/2023 01:15 PM [facility] 11-30-2023 Note SINUS RHYTHM BORDERLINE LEFT AXIS DEVIATION BORDERLINE T ABNORMALITIES, INFERIOR LEADS Electronic Signature: ZEFERINO QUINTANA MD 12/01/2023 23:45:22 [facility] 11-30-2023 Note ORIGINAL EXAMINATION: TWO XRAY VIEWS OF THE CHEST 11/30/2023 6:18 am COMPARISON: None. HISTORY: ORDERING SYSTEM PROVIDED HISTORY: Reason for Exam: abnormal breath sounds FINDINGS: Left subclavian central venous catheter tube in the SVC. Sternotomy wires in the chest wall. Heart size is stable. Small bilateral effusions. Hazy airspace disease at the lung bases. IMPRESSION: Small bilateral effusions. Hazy airspace disease at the lung bases. Interpreted by: Daniela Triana MD Preliminary Report By: Daniela Triana MD Electronically signed By Daniela Triana MD Dictated Date: 11/30/2023 6:26:23 AM Prelim Date: 11/30/2023 6:28:22 AM Sign Date: 11/30/2023 6:28:22 AM Ordering Provider: CAMERON RIDDLE [facility] 11-29-2023 Note Date of Service 11/29/2023 Subjective 68 y.o. male with pmHx of seizures (last known 2011), multiple sclerosis, anxiety, depression, and iron deficiency anemia. Originally presented to [facility] on 11/21/23 due to left arm pain and restrosternal chest pain with exertion. ECHO completed 11/20 showed: EF 70%. Stress test was then completed 11/21 which showed possible ischemia in the LAD territory. Due to findings he then underwent a cardiac cath that showed 95% mid LAD stenosis and 95% stenosis of the first diag. Patient was transferred to [facility] for surgical revascularization. Surgery was discussed and he consented and was taken to the operating room on 11/26/23 for OPCABx2 (WILLETT-LAD; Ao-dx1 w/rsvg) left leg evh with Dr. Henry. Liberated from mechanical ventilation on night of surgery. Pain was well controlled. Patient's hemoglobin has been slowly trending down. Was given 1 unit of packed RBCs. Hemoglobin stable. Chest tubes discontinued. nRemains on room air The patient was seen and examined and discussed with the critical care team the critical care note reviewed I agree with those findings. Objective Vitals and Measurements T: 37 C (Oral) TMIN: 36.7 C (Oral) TMAX: 37.1 C (Oral) HR: 72 (Monitored) RR: 16 BP: 110/63 BP: 102/52(Line) SpO2: 96% WT: 86 kg Physical Exam General Alert oriented x 3 up in a chair Lungs: Bilateral, clear, respirations easy regular nonlabored, on room air Heart: Irregular S1-S2, Incision: Midsternal incision open to air with Steri-Strips, left leg incision open to air without drainage Abdomen: Soft, nontender, bowel sounds present, no BM Neurological: Nonfocal Weight Current Weight Dosing Weight: 83.8 kg (11/24/23) Current Weight: 86 kg (11/29/23) Current Weight: 86.9 kg (11/28/23) Medications Medications (39) Active Scheduled: (11) amiodarone 200 mg tablet 400 mg 2 tab(s), Oral, BIDM amiodarone 200 mg tablet 200 mg 1 tab(s), Oral, qDayM aspirin 325 mg EC 325 mg 1 tab(s), Oral, qDayM citalopram 40 mg tablet 40 mg 1 tab(s), Oral, qDay dimethyl fumarate [address] capsule 240 mg 1 cap(s), Oral, BID metoprolol tartrate 25 mg tablet 25 mg 1 tab(s), Oral, BIDM Misc communication order 1 EA, Miscellaneous, Daily mupirocin 2% Ointment 22 Gram(s) tube 1 david, Nostril, each, q12h pantoprazole 40 mg VIAL 40 mg, IV Push, qDayAC zonisamide 100 mg Capsule 300 mg 3 cap(s), Oral, qHS zonisamide 100 mg Capsule 200 mg 2 cap(s), Oral, Daily Continuous: (11) amiodarone 450 mg [0.5 mg/min] + sodium chloride ELISSA 250 mL 250 mL, Intravenous, 16.67 mL/hr Dextrose 5% with 0.45% NACL 1,000 mL 1,000 mL, Intravenous, 20 mL/hr epinephrine 4 mg [2 mcg/min] + Sodium Chloride 0.9% 250 mL 250 mL, Intravenous, 7.5 mL/hr insulin regular 100 unit(s) + NS Premix Diluent 100 mL 100 mL, Intravenous Lactated Ringers 500 mL 500 mL, Intravenous, 100 mL/hr nicardipine 25 mg [5 mg/hr] + Sodium Chloride 0.9% 240 mL 240 mL, Intravenous, 50 mL/hr nitroglycerin 50 mg/250 mL D5W 50 mg [5 mcg/min] + Dextrose 5% Premix Diluent 250 mL 250 mL, Intravenous, 1.5 mL/hr nitroprusside 50 mg [0.2 mcg/kg/min] + NS Premix Diluent 100 mL 100 mL, Intravenous, 2.01 mL/hr norepinephrine 8 mg [2 mcg/min] + NS Premix Diluent 250 mL 250 mL, Intravenous, 3.75 mL/hr NS (0.9% nacl) 1,000 mL 1,000 mL, Intravenous, 20 mL/hr NS (0.9% nacl) 500 mL 500 mL, Intravenous, 20 mL/hr PRN: (17) acetaminophen 325 mg Tablet 650 mg 2 tab(s), Oral, q4h albumin human 5% 12.5 gram(s) 250 mL, IV Piggyback (MED), AsDirected calcium chloride 400 mg 4 mL, IV Piggyback, AsDirected calcium chloride 1,000 mg 10 mL, IV Piggyback, AsDirected dextrose 50% Solution Disp syringe 50 mL 25 g 50 mL, IV Push, AsDirected dextrose 50% Solution Disp syringe 50 mL 12.5 gram(s) 25 mL, IV Push, AsDirected insulin regular human recombinant 100 units/ml (10 mL) Solution 10 unit(s) 0.1 mL, IV Push, q1h magnesium sulfate 4g/50mL PMX 4 g 50 mL, IV Piggyback, AsDirected magnesium sulfate PMX 2 g 50 mL, IV Piggyback, AsDirected nitroglycerin 100 mcg/1 mL 10 mL VIAL 100 mcg 1 mL, IV Push, AsDirected ondansetron 2 mg/ 1 mL 2 mL INJ 4 mg 2 mL, IV Push, q4h potassium chloride (PMX) 20 mEq 50 mL, IV Piggyback, AsDirected potassium chloride (PMX) 20 mEq 50 mL, IV Piggyback, AsDirected protamine 10 mg/mL (50 mg/5 mL) vial 50 mg 5 mL, IV Push, Once sodium phosphate 20.95 mmol 6.98 mL, IV Piggyback, AsDirected tramadol 50 mg Tablet 50 mg 1 tab(s), Oral, q4h tramadol 50 mg Tablet 25 mg 0.5 tab(s), Oral, q4h Lab Results 11/28 03:52 WBC: 16.7 H Hgb: 8.1 L Hct: 24.4 L Platelet: 267 Neutrophil %: 75.9 H Glucose Level: 99 Sodium Level: 137 Potassium Level: 3.9 BUN: 23.0 H Creatinine Lvl (s): 0.87 11/27 14:14 Hgb: 8.2 L Hct: 24.6 L 11/27 10:06 Potassium Level: 4.2 11/27 04:28 WBC: 14.5 H Hgb: 6.8 C Hct: 21.0 L Platelet: 265 Neutrophil %: 77.6 H Glucose Level: 112 Sodium Level: 135 L Potassium Level: 3.6 BUN: 26.0 H Creatinine Lvl (s): 1.07 Imaging Results and Diagnostics XR Chest 1 View Result Date: November 29, 2023 Verified By: CLINICAL STATEMENT: IMPRESSION: XR Chest 1 View Result Date: November 28, 2023 Verified By: DANIELA TRIANA MD CLINICAL STATEMENT: IMPRESSION: Left basilar subsegmental atelectasis. Otherwise, no significant intervalchange. I have personally reviewed the images of this examination and agree with theresident's findings and interpretation. XR Chest 1 View Result Date: November 27, 2023 Verified By: DANIELA TRIANA MD CLINICAL STATEMENT: IMPRESSION: Interval removal of ET and enteric tubes. Otherwise, no significant intervalchange. I have personally reviewed the images of this examination and agree with theresident's findings and interpretation. XR Enteric Tube Placement Result Date: November 26, 2023 Verified By: LEIDA KNUTSON MD CLINICAL STATEMENT: IMPRESSION: XR Chest 1 View Result Date: November 26, 2023 Verified By: LEIDA KNUTSON MD CLINICAL STATEMENT: IMPRESSION: Interval sternotomy and interventional changes as above. I have personally reviewed the images of this examination and agree with theresident's findings and interpretation. XR Chest 1 View Result Date: November 24, 2023 Verified By: JAMEEL AREVALO MD CLINICAL STATEMENT: IMPRESSION: Left basilar atelectasis. I have personally reviewed the images of this examination and agree with theresident's findings and interpretation. EKG EKG - Completed -- 11/27/23 6:00:00 EDT, 12 lead, POD 1 EKG - Completed -- 11/27/23 17:05:00 EDT Assessment/Plan 1. 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 Acute blood loss anemia 3. AF (paroxysmal atrial fibrillation) 4. Iron deficiency anemia 5. Multiple sclerosis 6. Seizure disorder 7. Anxiety and depression Plan: 1. Stable hemoglobin 2. fecal occult blood still pending. No gross blood in stools 3. Continue to monitor leukocytosis, no fever or signs of infection at this point. Likely reactive 4. continue aggressive pulmonary toilet Digitally Signed by SVEN FORBES MD on 11/29/2023 07:30 AM [facility] 11-29-2023 Note ORIGINAL EXAMINATION: ONE XRAY VIEW OF THE CHEST 11/29/2023 5:17 am COMPARISON: 11/28/2023 HISTORY: ORDERING SYSTEM PROVIDED HISTORY: Reason for Exam: Abnormal lung sounds FINDINGS: Median sternotomy wires. Left subclavian central venous catheter tip projects at the level of mid SVC. Stable cardiomediastinal silhouette and osseous structures. No pneumothorax. Probable trace left pleural effusion, unchanged. No focal consolidation. Stable left basilar subsegmental atelectasis. IMPRESSION: Overall, no significant change in lung aeration. I have personally reviewed the images of this examination and agree with the resident's findings and interpretation. Interpreted by: Daniela Triana MD Preliminary Report By: Shazia Lopez Electronically signed By Daniela Triana MD Dictated Date: 11/29/2023 5:53:03 AM Prelim Date: 11/29/2023 5:56:36 AM Sign Date: 11/29/2023 7:36:23 AM Ordering Provider: CAMERON RIDDLE [facility] 11-28-2023 Note Date of Service 11/28/2023 Subjective 68 y.o. male with pmHx of seizures (last known 2011), multiple sclerosis, anxiety, depression, and iron deficiency anemia. Originally presented to [facility] on 11/21/23 due to left arm pain and restrosternal chest pain with exertion. ECHO completed 11/20 showed: EF 70%. Stress test was then completed 11/21 which showed possible ischemia in the LAD territory. Due to findings he then underwent a cardiac cath that showed 95% mid LAD stenosis and 95% stenosis of the first diag. Patient was transferred to [place] for surgical revascularization. Surgery was discussed and he consented and was taken to the operating room on 11/26/23 for OPCABx2 (WILLETT-LAD; Ao-dx1 w/rsvg) left leg evh with Dr. Henry. Liberated from mechanical ventilation on night of surgery. Pain was well controlled. Patient's hemoglobin has been slowly trending down. This morning decreased to 6.8. Patient is up in a chair. Has no new complaints. The patient was seen and examined and discussed with the critical care team the critical care note reviewed I agree with those findings. Objective Vitals and Measurements T: 37.0 C (Oral) TMIN: 36.5 C (Oral) TMAX: 37.2 C (Oral) HR: 112 RR: 16 BP: 109/54 BP: 111/50(Line) SpO2: 96% WT: 86.9 kg Physical Exam General Alert oriented x 3 up in a chair Lungs: Bilateral, clear, respirations easy regular nonlabored, on room air with SaO2 of 95% Heart: Irregular S1-S2, monitor atrial fibrillation rate in the 100s Incision: Midsternal incision open to air with Steri-Strips, left leg incision open to air without drainage Abdomen: Soft, nontender, bowel sounds present, no BM Neurological: Nonfocal Temporary pacemaker wire intact Weight Current Weight Dosing Weight: 83.8 kg (11/24/23) Current Weight: 86.9 kg (11/28/23) Current Weight: 85.5 kg (11/27/23) Medications Medications (41) Active Scheduled: (11) amiodarone 200 mg tablet 400 mg 2 tab(s), Oral, BIDM amiodarone 200 mg tablet 200 mg 1 tab(s), Oral, qDayM aspirin 325 mg EC 325 mg 1 tab(s), Oral, qDayM citalopram 40 mg tablet 40 mg 1 tab(s), Oral, qDay dimethyl fumarate [address] capsule 240 mg 1 cap(s), Oral, BID metoprolol tartrate 12.5 mg ( HALF-TAB ) 12.5 mg 1 EA, Oral, BIDM Misc communication order 1 EA, Miscellaneous, Daily mupirocin 2% Ointment 22 Gram(s) tube 1 david, Nostril, each, q12h pantoprazole 40 mg VIAL 40 mg, IV Push, qDayAC zonisamide 100 mg Capsule 300 mg 3 cap(s), Oral, qHS zonisamide 100 mg Capsule 200 mg 2 cap(s), Oral, Daily Continuous: (12) amiodarone 450 mg [0.5 mg/min] + sodium chloride ELISSA 250 mL 250 mL, Intravenous, 16.67 mL/hr Dextrose 5% with 0.45% NACL 1,000 mL 1,000 mL, Intravenous, 20 mL/hr epinephrine 4 mg [2 mcg/min] + Sodium Chloride 0.9% 250 mL 250 mL, Intravenous, 7.5 mL/hr insulin regular 100 unit(s) + NS Premix Diluent 100 mL 100 mL, Intravenous Lactated Ringers 500 mL 500 mL, Intravenous, 100 mL/hr nicardipine 25 mg [5 mg/hr] + Sodium Chloride 0.9% 240 mL 240 mL, Intravenous, 50 mL/hr nitroglycerin 50 mg/250 mL D5W 50 mg [5 mcg/min] + Dextrose 5% Premix Diluent 250 mL 250 mL, Intravenous, 1.5 mL/hr nitroprusside 50 mg [0.2 mcg/kg/min] + NS Premix Diluent 100 mL 100 mL, Intravenous, 2.01 mL/hr norepinephrine 8 mg [2 mcg/min] + NS Premix Diluent 250 mL 250 mL, Intravenous, 3.75 mL/hr NS (0.9% nacl) 1,000 mL 1,000 mL, Intravenous, 20 mL/hr NS (0.9% nacl) 500 mL 500 mL, Intravenous, 20 mL/hr NS (0.9% nacl) 500 mL 500 mL, Intravenous, 20 mL/hr PRN: (18) acetaminophen 325 mg Tablet 650 mg 2 tab(s), Oral, q4h albumin human 5% 12.5 gram(s) 250 mL, IV Piggyback (MED), AsDirected calcium chloride 400 mg 4 mL, IV Piggyback, AsDirected calcium chloride 1,000 mg 10 mL, IV Piggyback, AsDirected dextrose 50% Solution Disp syringe 50 mL 25 g 50 mL, IV Push, AsDirected dextrose 50% Solution Disp syringe 50 mL 12.5 gram(s) 25 mL, IV Push, AsDirected insulin regular human recombinant 100 units/ml (10 mL) Solution 10 unit(s) 0.1 mL, IV Push, q1h magnesium sulfate 4g/50mL PMX 4 g 50 mL, IV Piggyback, AsDirected magnesium sulfate PMX 2 g 50 mL, IV Piggyback, AsDirected nitroglycerin 100 mcg/1 mL 10 mL VIAL 100 mcg 1 mL, IV Push, AsDirected ondansetron 2 mg/ 1 mL 2 mL INJ 4 mg 2 mL, IV Push, q4h potassium chloride (PMX) 20 mEq 50 mL, IV Piggyback, AsDirected potassium chloride (PMX) 20 mEq 50 mL, IV Piggyback, AsDirected potassium chloride (PMX) 20 mEq 50 mL, IV Piggyback, AsDirected protamine 10 mg/mL (50 mg/5 mL) vial 50 mg 5 mL, IV Push, Once sodium phosphate 20.95 mmol 6.98 mL, IV Piggyback, AsDirected tramadol 50 mg Tablet 50 mg 1 tab(s), Oral, q4h tramadol 50 mg Tablet 25 mg 0.5 tab(s), Oral, q4h Lab Results 11/27 04:28 WBC: 14.5 H Hgb: 6.8 C Hct: 21.0 L Platelet: 265 Neutrophil %: 77.6 H Glucose Level: 112 Sodium Level: 135 L Potassium Level: 3.6 BUN: 26.0 H Creatinine Lvl (s): 1.07 11/26 15:48 Potassium Level: 3.8 11/26 03:48 WBC: 16.2 H Hgb: 8.3 L Hct: 25.7 L Platelet: 320 Neutrophil %: 81.6 H Glucose Level: 130 H Sodium Level: 141 Potassium Level: 3.7 BUN: 23.0 H Creatinine Lvl (s): 0.90 Imaging Results and Diagnostics XR Chest 1 View Result Date: November 28, 2023 Verified By: DANIELA TRIANA MD CLINICAL STATEMENT: IMPRESSION: Left basilar subsegmental atelectasis. Otherwise, no significant intervalchange. I have personally reviewed the images of this examination and agree with theresident's findings and interpretation. XR Chest 1 View Result Date: November 27, 2023 Verified By: DANIELA TRIANA MD CLINICAL STATEMENT: IMPRESSION: Interval removal of ET and enteric tubes. Otherwise, no significant intervalchange. I have personally reviewed the images of this examination and agree with theresident's findings and interpretation. XR Enteric Tube Placement Result Date: November 26, 2023 Verified By: LEIDA KNUTSON MD CLINICAL STATEMENT: IMPRESSION: XR Chest 1 View Result Date: November 26, 2023 Verified By: LEIDA KNUTSON MD CLINICAL STATEMENT: IMPRESSION: Interval sternotomy and interventional changes as above. I have personally reviewed the images of this examination and agree with theresident's findings and interpretation. XR Chest 1 View Result Date: November 24, 2023 Verified By: JAMEEL AREVALO MD CLINICAL STATEMENT: IMPRESSION: Left basilar atelectasis. I have personally reviewed the images of this examination and agree with theresident's findings and interpretation. EKG Electrocardiogram - Completed -- 11/26/23 11:46:00 EDT, within 1/2 hr of admission to CVSICU, Complete by Nursing Electrocardiogram (EKG) - InProcess -- 11/27/23 17:05:00 EDT Assessment/Plan 1. 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 Acute blood loss anemia 3. AF (paroxysmal atrial fibrillation) 4. Iron deficiency anemia 5. Multiple sclerosis 6. Seizure disorder 7. Anxiety and depression Plan: 1. Transfuse 1 unit of packed RBCs per 2. Check fecal occult blood 3. Continue to monitor leukocytosis. Continue aggressive pulmonary toilet Digitally Signed by SVEN FORBES MD on 11/28/2023 01:49 PM [facility] 11-28-2023 Note ORIGINAL EXAMINATION: ONE XRAY VIEW OF THE CHEST 11/28/2023 5:56 am COMPARISON: 11/27/2023 HISTORY: ORDERING SYSTEM PROVIDED HISTORY: Reason for Exam: decreased breath sounds FINDINGS: Median sternotomy changes. Left chest tube. Mediastinal drain. Left subclavian central venous catheter tip projects at the level of proximal SVC. Left basilar streaky airspace opacities, suggests subsegmental atelectasis. No significant interval change in cardiomediastinal silhouette and osseous structures. No pneumothorax. Probable trace left pleural effusion. IMPRESSION: Left basilar subsegmental atelectasis. Otherwise, no significant interval change. I have personally reviewed the images of this examination and agree with the resident's findings and interpretation. Interpreted by: Daniela Triana MD Preliminary Report By: Shazia Lopez Electronically signed By Daniela Triana MD Dictated Date: 11/28/2023 6:15:42 AM Prelim Date: 11/28/2023 6:18:49 AM Sign Date: 11/28/2023 6:37:24 AM Ordering Provider: YU RECIO [facility] 11-27-2023 Note SINUS RHYTHM SUPRAVENTRICULAR BIGEMINY MINIMAL ST ELEVATION, ANTERIOR LEADS NONSPECIFIC T-WAVE ABNORMALITY Electronic Signature: KATHY RICHARDS MD 11/28/2023 08:35:23 [facility] 11-27-2023 Note SINUS RHYTHM BORDERLINE LEFT AXIS DEVIATION ST ELEVATION, CONSIDER ANTERIOR INJURY Electronic Signature: KATHY RICHARDS MD 11/28/2023 08:34:55 [facility] 11-27-2023 Note ORIGINAL EXAMINATION: ONE XRAY VIEW OF THE CHEST 11/27/2023 6:16 am COMPARISON: 11/26/2023 HISTORY: ORDERING SYSTEM PROVIDED HISTORY: Reason for Exam: abnormal breath sounds FINDINGS: Interval removal of ET and enteric tubes. Median sternotomy wires. Mediastinal drain. Left pleural drain. Left subclavian central venous catheter tip projects at the level of proximal SVC. No significant change in cardiomediastinal silhouette, lung aeration and osseous structures. No large pleural effusion or pneumothorax. IMPRESSION: Interval removal of ET and enteric tubes. Otherwise, no significant interval change. I have personally reviewed the images of this examination and agree with the resident's findings and interpretation. Interpreted by: Daniela Triana MD Preliminary Report By: Shazia Lopez Electronically signed By Daniela Triana MD Dictated Date: 11/27/2023 6:33:46 AM Prelim Date: 11/27/2023 6:35:08 AM Sign Date: 11/27/2023 7:26:27 AM Ordering Provider: JORDAN HENRY [facility] 11-26-2023 Critical care medicine Consult note Date of Service 11/26/2023 Reason for Consultation Critical care management in the CVSICU Referring Physician Dr. Henry History of Present Illness 68-year-old male with history of multiple sclerosis, epilepsy (last seizure 2011), anxiety/depression, iron deficiency anemia, smoker (quit age 53), presented to [facility] on 11/21/2023 with complaints of left-sided arm pain, retrosternal chest pain with exertion associated with diaphoresis. He had negative troponins x 2. Echocardiogram showed an EF of 70%. Stress test 11/21 showed ischemia in the LAD territory and heart cath on 11/23 showed 95% stenosis of the mid LAD and 95% stenosis of the first diagonal coronary artery. He was transferred to [place] on 11/23 for surgical revascularization. Today, 11/25 he underwent CABG x 2, WILLETT to the LAD, AO to the first diagonal with RSVG. The surgery was done off-pump. He was brought to this cardiovascular surgical intensive care unit on mechanical ventilation. He is sedated on propofol at 10 mcg/kg/min. Patient is normotensive on norepinephrine at 2 mcg/min, well-perfused, oxygenating well on mechanical ventilation, no arrhythmias and no signs of bleeding. Central line and arterial line in place. Review of Systems Review of systems unobtainable as patient is under the effects of anesthesia. Physical Exam Vitals and Measurements T: 36.3 C (Oral) TMIN: 14.47 C TMAX: 36.9 C (Oral) HR: 76 (Monitored) RR: 14 (Total) RR: 0 (Spontaneous) BP: 111/63 BP: 112/58(Line) SpO2: 100% Weight Dosing Weight: 83.8 kg (11/24/23) General: Sedated on mechanical ventilation Head: Normocephalic, atraumatic ENT: PERRLA, eyes: Sclera nonicteric, oral: Mucous membranes moist, ET tube in place Neck: Supple, no JVD, left subclavian triple-lumen noted Cardiac: Regular rate and rhythm, normal S1-S2, no murmur, rubs, or gallops Respiratory: Lungs clear, resps easy, on mechanical ventilation assist-control, 14, 620, 40%, 5 Abdomen: Soft, nontender, normoactive bowel sounds Musculoskeletal: No joint deformities, no muscle tenderness Extremities: 2+ pulses, no edema, right brachial arterial line in placeKeep home metoprolol 25 mg twice daily on hold while requiring vasopressors. Neurological: Sedated Skin: Warm & dry, midsternal wound noted, dressing dry and intact, 2 mediastinal chest tubes and 1 left pleural chest tube with serosanguineous drainage, no airleak Lab Results 11/25 12:34 WBC: 31.8 H Hgb: 9.0 L Hct: 28.2 L Platelet: 327 Protime: 14.0 PT International Ratio: 1.2 Glucose Level: 136 H Sodium Level: 141 Potassium Level: 3.9 BUN: 23.0 H Creatinine Lvl (s): 0.80 ABG: pH 7.39, pCO2 31, pO2 156 Imaging Results and Diagnostics XR Enteric Tube Placement Result Date: November 26, 2023 Verified By: LEIDA KNUTSON MD CLINICAL STATEMENT: IMPRESSION: XR Chest 1 View Result Date: November 26, 2023 Verified By: LEIDA KNUTSON MD CLINICAL STATEMENT: IMPRESSION: Interval sternotomy and interventional changes as above. I have personally reviewed the images of this examination and agree with theresident's findings and interpretation. XR Chest 1 View Result Date: November 24, 2023 Verified By: JAMEEL AREVALO MD CLINICAL STATEMENT: IMPRESSION: Left basilar atelectasis. I have personally reviewed the images of this examination and agree with theresident's findings and interpretation. Assessment/Plan Anxiety and depression CAD in morongo artery Iron deficiency anemia Multiple sclerosis Seizure disorder Assessment: 1. Multivessel coronary artery disease status post CABG x 2 (11/26/2023) on mechanical ventilation postop 2. History of multiple sclerosis, epilepsy, anxiety depression, anemia Plan: 1. Patient brought to CVSICU status post CABG x 2, off-pump, on mechanical ventilation. Plan is to interrupt sedation and place patient on spontaneous breathing trial. Suspect patient will be able to successfully come off mechanical ventilation. 2. Titrate norepinephrine to keep mean arterial pressure greater than 65 mmHg. 3. Keep home metoprolol 25 mg twice daily on hold while requiring vasopressors. 4. Once patient extubated and able to swallow, resume home antiepileptic zonisamide and dimethyl fumarate for his MS. 5. Continue Protonix IV for GI prophylaxis 6. Heparin for DVT prophylaxis once cleared by cardiothoracic surgery. 7. Laboratory data in the a.m. CBC BMP CODE STATUS full code Plan of care discussed with Dr. Sven Kilpatrick MD. Please see his addendum below for details. Problem List/Past Medical History Ongoing Anxiety and depression CAD in morongo artery Iron deficiency anemia Multiple sclerosis Seizure disorder Procedure/Surgical History Splenectomy: 1967 Catheterization of left heart Medications Inpatient albumin human 5% intravenous solution, 12.5 gram(s)= 250 mL, IV Piggyback (MED), AsDirected, PRN aspirin 325 mg oral delayed release tablet, 325 mg= 1 tab(s), Oral, qDayM Calcium Chloride Calcium Chloride Cardioplegic [place], 1052.8 mL, Miscellaneous, Once ceFAZolin, 3 gram(s)= 80 mL, IV Piggyback, q8h Dexmedetomidine for IV 400 mcg [0.2 mcg/kg/hr] + sodium chloride 0.9% IV solution (T) 96 mL Dextrose 5% with 0.45% NaCl intravenous solution 1,000 mL, 1000 mL, Intravenous Dextrose 50% IV Push, 12.5 gram(s)= 25 mL, IV Push, AsDirected, PRN epinephrine for IV 4 mg [0.01 mcg/min] + sodium chloride 0.9% IV solution (T) 250 mL fentaNYL, 25 mcg= 0.5 mL, IV Push, q15min, PRN glucose, 25 gram(s)= 50 mL, IV Push, AsDirected, PRN Insulin Regular for IV 100 unit(s) + NS Premix Diluent 100 mL insulin regular human recombinant 100 units/mL injectable solution, 10 unit(s)= 0.1 mL, IV Push, q1h, PRN magnesium sulfate, 2 gram(s)= 50 mL, IV Piggyback, AsDirected, PRN magnesium sulfate, 4 gram(s)= 50 mL, IV Piggyback, AsDirected, PRN mupirocin 2% topical ointment, 1 david, Nostril, each, q12h Nitroglycerin 100 mcg/mL injection, 100 mcg= 1 mL, IV Push, AsDirected, PRN nitroGLYcerin for IV 50 mg [5 mcg/min] + Dextrose Premix titrate 250 mL nitroprusside for IV 50 mg [0.2 mcg/kg/min] + NS PMX titrate 100 mL Norepinephrine for IV 8 mg [0.01 mcg/kg/min] + NS PMX titrate 250 mL Norepinephrine for IV 8 mg [0.01 mcg/min] + NS PMX titrate 250 mL ocular lubricant ophthalmic oint, 1 david, Eyes, both, q8h ocular lubricant ophthalmic oint, 1 david, Eyes, both, AsDirected, PRN ocular lubricant ophthalmic soln, 1 drop(s), Eyes, both, q8h ocular lubricant ophthalmic soln, 1 drop(s), Eyes, both, AsDirected, PRN ondansetron, 4 mg= 2 mL, IV Push, q4h, PRN pantoprazole IV Push, 40 mg, IV Push, qDayAC Peridex 0.12% oral rinse liquid, 15 mL, Swish & Spit, QID potassium chloride bolus, 20 mEq= 50 mL, IV Piggyback, AsDirected, PRN potassium chloride bolus, 20 mEq= 50 mL, IV Piggyback, AsDirected, PRN potassium chloride bolus, 20 mEq= 50 mL, IV Piggyback, AsDirected, PRN Propofol for IV 1,000 mg [10 mcg/kg/min] + IV Premix Diluent titrate 100 mL protamine, 50 mg= 5 mL, IV Push, Once, PRN Sodium Chloride 0.9% intravenous solution 1,000 mL, 1000 mL, Intravenous Sodium Chloride 0.9% intravenous solution 500 mL, 500 mL, Intravenous Sodium Phosphate for IVPB Bolus Home acetaminophen, 650 mg, Oral, q6hr, PRN aspirin 81 mg oral tablet, chewable, 81 mg= 1 tab(s), Oral, Daily, Not taking atorvastatin 80 mg oral tablet, 80 mg= 1 tab(s), Oral, qHS, Not taking citalopram, 40 mg, Oral, qDay dimethyl fumarate 240 mg oral delayed release capsule, 240 mg= 1 cap(s), Oral, BID enoxaparin, 40 mg, Subcutaneous, qDay ferrous gluconate 324 mg (38 mg elemental iron) oral tablet, 324 mg= 1 tab(s), Oral, BID metoprolol tartrate 25 mg oral tablet, 25 mg= 1 tab(s), Oral, BID zonisamide 100 mg oral capsule, 200 mg= 2 cap(s), Oral, Daily zonisamide 100 mg oral capsule, 300 mg= 3 cap(s), Oral, qHS Allergies NKA Social History Alcohol Use: social. Frequency: 1-2 times per year., 11/24/2023 Substance Abuse Use: Never., 11/24/2023 Tobacco Nicotine Use: Former smoker, quit more than 30 days ago. Type: Cigarettes. Started at age: 16 Years. Stopped at age: 53 Years., 11/24/2023 Family History Cancer: Mother.Negative: Father, Sister, Brother, Daughter, Son and Grandparent. Heart attack: Negative: Father. Heart disease: Brother. Stroke: Father. Health Status Family Member(s) Immunizations No qualifying data available. Digitally Signed by CHUNG LU on 11/26/2023 02:14 PM [facility] 11-26-2023 Anesthesiology Consult note Patient: JUANITA JAY Age: 68 years Sex: Male : 1955 Associated Diagnoses: None Author: MICHAEL CHIN MD Postoperative Information Post Operative Info: Post op day: Post Anesthesia Care Unit. Patient location: PACU. Assessment Postanesthesia assessment Vitals: Vital signs from flowsheet : Vital Signs 11/26/2023 13:24 EDT Heart Rate Monitored 80 bpm Systolic Blood Pressure Invasive 112 mmHg Diastolic Blood Pressure Invasive 57 mmHg LOW Mean Arterial Pressure (Line) 78 mmHg 11/26/2023 13:09 EDT Heart Rate Monitored 79 bpm Systolic Blood Pressure Invasive 102 mmHg Diastolic Blood Pressure Invasive 53 mmHg LOW Mean Arterial Pressure (Line) 72 mmHg 11/26/2023 12:54 EDT Heart Rate Monitored 76 bpm Systolic Blood Pressure Invasive 112 mmHg Diastolic Blood Pressure Invasive 58 mmHg LOW Mean Arterial Pressure (Line) 79 mmHg 11/26/2023 12:39 EDT Heart Rate Monitored 75 bpm 11/26/2023 12:24 EDT Temperature Oral 36.3 DegC Apical Heart Rate 77 bpm Respiratory Rate 14 br/min Systolic Blood Pressure Invasive 112 mmHg Diastolic Blood Pressure Invasive 73 mmHg 11/26/2023 12:20 EDT Heart Rate Monitored 79 bpm bpm Respiratory Rate - Anes 12 br/min br/min 11/26/2023 12:15 EDT Temperature Bladder 36.6 DegC DegC Temperature (Route Not Specified) 36.23 DegC DegC Heart Rate Monitored 73 bpm bpm Respiratory Rate - Anes 12 br/min br/min 11/26/2023 12:10 EDT Temperature Bladder 36.59 DegC DegC Temperature (Route Not Specified) 36.2 DegC DegC Heart Rate Monitored 74 bpm bpm Respiratory Rate - Anes 12 br/min br/min 11/26/2023 12:05 EDT Temperature Bladder 36.58 DegC DegC Temperature (Route Not Specified) 36.19 DegC DegC Heart Rate Monitored 73 bpm bpm Respiratory Rate - Anes 12 br/min br/min 11/26/2023 12:00 EDT Temperature Bladder 36.55 DegC DegC Temperature (Route Not Specified) 36.19 DegC DegC Heart Rate Monitored 86 bpm bpm Respiratory Rate - Anes 12 br/min br/min 11/26/2023 11:55 EDT Temperature Bladder 36.54 DegC DegC Temperature (Route Not Specified) 36.18 DegC DegC Heart Rate Monitored 72 bpm bpm Respiratory Rate - Anes 12 br/min br/min 11/26/2023 11:50 EDT Temperature Bladder 36.53 DegC DegC Temperature (Route Not Specified) 36.14 DegC DegC Heart Rate Monitored 72 bpm bpm Respiratory Rate - Anes 12 br/min br/min 11/26/2023 11:45 EDT Temperature Bladder 36.51 DegC DegC Temperature (Route Not Specified) 36.1 DegC DegC Heart Rate Monitored 74 bpm bpm Respiratory Rate - Anes 12 br/min br/min 11/26/2023 11:40 EDT Temperature Bladder 36.5 DegC DegC Temperature (Route Not Specified) 36.06 DegC DegC Heart Rate Monitored 73 bpm bpm Respiratory Rate - Anes 12 br/min br/min 11/26/2023 11:35 EDT Temperature Bladder 36.49 DegC DegC Temperature (Route Not Specified) 35.99 DegC DegC Heart Rate Monitored 74 bpm bpm Respiratory Rate - Anes 12 br/min br/min 11/26/2023 11:30 EDT Temperature Bladder 36.5 DegC DegC Temperature (Route Not Specified) 35.95 DegC DegC Heart Rate Monitored 73 bpm bpm Respiratory Rate - Anes 12 br/min br/min 11/26/2023 11:25 EDT Temperature Bladder 36.47 DegC DegC Temperature (Route Not Specified) 35.94 DegC DegC Heart Rate Monitored 68 bpm bpm Respiratory Rate - Anes 12 br/min br/min 11/26/2023 11:20 EDT Temperature Bladder 36.49 DegC DegC Temperature (Route Not Specified) 35.91 DegC DegC Heart Rate Monitored 75 bpm bpm Respiratory Rate - Anes 12 br/min br/min 11/26/2023 11:15 EDT Temperature Bladder 36.49 DegC DegC Temperature (Route Not Specified) 35.89 DegC DegC Heart Rate Monitored 66 bpm bpm Respiratory Rate - Anes 12 br/min br/min 11/26/2023 11:10 EDT Temperature Bladder 36.5 DegC DegC Temperature (Route Not Specified) 35.97 DegC DegC Heart Rate Monitored 68 bpm bpm Respiratory Rate - Anes 12 br/min br/min 11/26/2023 11:05 EDT Temperature Bladder 36.5 DegC DegC Temperature (Route Not Specified) 35.96 DegC DegC Heart Rate Monitored 72 bpm bpm Respiratory Rate - Anes 12 br/min br/min 11/26/2023 11:00 EDT Temperature Bladder 36.49 DegC DegC Temperature (Route Not Specified) 35.95 DegC DegC Heart Rate Monitored 74 bpm bpm Respiratory Rate - Anes 12 br/min br/min 11/26/2023 10:55 EDT Temperature Bladder 36.49 DegC DegC Temperature (Route Not Specified) 35.94 DegC DegC Heart Rate Monitored 75 bpm bpm Respiratory Rate - Anes 12 br/min br/min 11/26/2023 10:50 EDT Temperature Bladder 36.5 DegC DegC Temperature (Route Not Specified) 35.93 DegC DegC Heart Rate Monitored 75 bpm bpm Respiratory Rate - Anes 12 br/min br/min 11/26/2023 10:45 EDT Temperature Bladder 36.49 DegC DegC Temperature (Route Not Specified) 35.93 DegC DegC Heart Rate Monitored 62 bpm bpm Respiratory Rate - Anes 12 br/min br/min 11/26/2023 10:40 EDT Temperature Bladder 36.49 DegC DegC Temperature (Route Not Specified) 35.94 DegC DegC Heart Rate Monitored 61 bpm bpm Respiratory Rate - Anes 12 br/min br/min 11/26/2023 10:35 EDT Temperature Bladder 36.46 DegC DegC Temperature (Route Not Specified) 35.95 DegC DegC Heart Rate Monitored 65 bpm bpm Respiratory Rate - Anes 12 br/min br/min 11/26/2023 10:30 EDT Temperature Bladder 36.44 DegC DegC Temperature (Route Not Specified) 35.96 DegC DegC Heart Rate Monitored 59 bpm bpm Respiratory Rate - Anes 12 br/min br/min 11/26/2023 10:25 EDT Temperature Bladder 36.45 DegC DegC Temperature (Route Not Specified) 35.96 DegC DegC Heart Rate Monitored 60 bpm bpm Respiratory Rate - Anes 12 br/min br/min 11/26/2023 10:20 EDT Temperature Bladder 36.43 DegC DegC Temperature (Route Not Specified) 35.98 DegC DegC Heart Rate Monitored 59 bpm bpm Respiratory Rate - Anes 12 br/min br/min 11/26/2023 10:15 EDT Temperature Bladder 36.45 DegC DegC Temperature (Route Not Specified) 35.99 DegC DegC Heart Rate Monitored 61 bpm bpm Respiratory Rate - Anes 12 br/min br/min 11/26/2023 10:10 EDT Temperature Bladder 36.44 DegC DegC Temperature (Route Not Specified) 36 DegC DegC Heart Rate Monitored 62 bpm bpm Respiratory Rate - Anes 12 br/min br/min 11/26/2023 10:05 EDT Temperature Bladder 36.47 DegC DegC Temperature (Route Not Specified) 36.01 DegC DegC Heart Rate Monitored 67 bpm bpm Respiratory Rate - Anes 12 br/min br/min 11/26/2023 10:00 EDT Temperature Bladder 36.47 DegC DegC Temperature (Route Not Specified) 36.03 DegC DegC Heart Rate Monitored 61 bpm bpm Respiratory Rate - Anes 12 br/min br/min 11/26/2023 9:55 EDT Temperature Bladder 36.48 DegC DegC Temperature (Route Not Specified) 36.05 DegC DegC Heart Rate Monitored 61 bpm bpm Respiratory Rate - Anes 12 br/min br/min 11/26/2023 9:50 EDT Temperature Bladder 36.48 DegC DegC Temperature (Route Not Specified) 36.05 DegC DegC Heart Rate Monitored 56 bpm bpm Respiratory Rate - Anes 12 br/min br/min 11/26/2023 9:45 EDT Temperature Bladder 36.49 DegC DegC Temperature (Route Not Specified) 36.08 DegC DegC Heart Rate Monitored 65 bpm bpm Respiratory Rate - Anes 12 br/min br/min 11/26/2023 9:40 EDT Temperature Bladder 36.5 DegC DegC Temperature (Route Not Specified) 36.08 DegC DegC Heart Rate Monitored 74 bpm bpm Respiratory Rate - Anes 12 br/min br/min 11/26/2023 9:35 EDT Temperature Bladder 36.51 DegC DegC Temperature (Route Not Specified) 36.04 DegC DegC Heart Rate Monitored 57 bpm bpm Respiratory Rate - Anes 12 br/min br/min 11/26/2023 9:30 EDT Temperature Bladder 36.51 DegC DegC Temperature (Route Not Specified) 36 DegC DegC Heart Rate Monitored 58 bpm bpm Respiratory Rate - Anes 12 br/min br/min 11/26/2023 9:25 EDT Temperature Bladder 36.52 DegC DegC Temperature (Route Not Specified) 35.99 DegC DegC Heart Rate Monitored 60 bpm bpm Respiratory Rate - Anes 12 br/min br/min 11/26/2023 9:20 EDT Temperature Bladder 36.53 DegC DegC Temperature (Route Not Specified) 35.97 DegC DegC Heart Rate Monitored 62 bpm bpm Respiratory Rate - Anes 12 br/min br/min 11/26/2023 9:15 EDT Temperature Bladder 36.51 DegC DegC Temperature (Route Not Specified) 35.95 DegC DegC Heart Rate Monitored 68 bpm bpm Respiratory Rate - Anes 12 br/min br/min 11/26/2023 9:10 EDT Temperature Bladder 36.55 DegC DegC Temperature (Route Not Specified) 35.99 DegC DegC Heart Rate Monitored 60 bpm bpm Respiratory Rate - Anes 12 br/min br/min 11/26/2023 9:05 EDT Temperature Bladder 36.51 DegC DegC Temperature (Route Not Specified) 36 DegC DegC Heart Rate Monitored 55 bpm bpm Respiratory Rate - Anes 12 br/min br/min 11/26/2023 9:00 EDT Temperature Bladder 36.52 DegC DegC Temperature (Route Not Specified) 35.98 DegC DegC Heart Rate Monitored 66 bpm bpm Respiratory Rate - Anes 12 br/min br/min 11/26/2023 8:55 EDT Temperature Bladder 36.52 DegC DegC Temperature (Route Not Specified) 35.88 DegC DegC Heart Rate Monitored 61 bpm bpm Respiratory Rate - Anes 12 br/min br/min 11/26/2023 8:50 EDT Temperature Bladder 36.52 DegC DegC Temperature (Route Not Specified) 36.04 DegC DegC Heart Rate Monitored 65 bpm bpm Respiratory Rate - Anes 12 br/min br/min 11/26/2023 8:45 EDT Temperature Bladder 36.5 DegC DegC Temperature (Route Not Specified) 36.18 DegC DegC Heart Rate Monitored 65 bpm bpm Respiratory Rate - Anes 12 br/min br/min 11/26/2023 8:40 EDT Temperature Bladder 36.45 DegC DegC Temperature (Route Not Specified) 14.47 DegC DegC Heart Rate Monitored 69 bpm bpm Respiratory Rate - Anes 12 br/min br/min 11/26/2023 8:35 EDT Temperature Bladder 36.35 DegC DegC Heart Rate Monitored 65 bpm bpm Respiratory Rate - Anes 12 br/min br/min 11/26/2023 8:30 EDT Temperature Bladder 36.22 DegC DegC Heart Rate Monitored 66 bpm bpm Respiratory Rate - Anes 12 br/min br/min 11/26/2023 8:25 EDT Temperature Bladder 36.16 DegC DegC Heart Rate Monitored 86 bpm bpm Respiratory Rate - Anes 12 br/min br/min 11/26/2023 8:20 EDT Heart Rate Monitored 76 bpm bpm Respiratory Rate - Anes 12 br/min br/min 11/26/2023 8:15 EDT Heart Rate Monitored 74 bpm bpm Respiratory Rate - Anes 22 br/min br/min 11/26/2023 8:10 EDT Heart Rate Monitored 71 bpm bpm 11/26/2023 8:00 EDT Apical Heart Rate Not Done: Patient in Surgery (Not Done) 11/26/2023 3:19 EDT Temperature Oral 36.3 DegC Heart Rate Monitored 60 bpm Respiratory Rate 18 br/min Systolic Blood Pressure Non-Invasive 111 mmHg Diastolic Blood Pressure Non-Invasive 63 mmHg Mean Arterial Pressure (NBP) 78 mmHg Reason For Taking VItal Signs Routine 11/25/2023 23:33 EDT Heart Rate Monitored 69 bpm Reason For Taking VItal Signs Routine 11/25/2023 22:55 EDT Temperature Oral 36.9 DegC Heart Rate Monitored 66 bpm Respiratory Rate 18 br/min Systolic Blood Pressure Non-Invasive 106 mmHg Diastolic Blood Pressure Non-Invasive 63 mmHg Mean Arterial Pressure (NBP) 75 mmHg Reason For Taking VItal Signs Routine 11/25/2023 19:43 EDT Heart Rate Monitored 71 bpm Reason For Taking VItal Signs Routine 11/25/2023 19:06 EDT Temperature Oral 36.9 DegC Heart Rate Monitored 64 bpm Respiratory Rate 18 br/min Systolic Blood Pressure Non-Invasive 101 mmHg Diastolic Blood Pressure Non-Invasive 56 mmHg LOW Mean Arterial Pressure (NBP) 70 mmHg Reason For Taking VItal Signs Routine 11/25/2023 17:01 EDT Apical Heart Rate 68 bpm 11/25/2023 16:10 EDT Heart Rate Monitored 62 bpm Reason For Taking VItal Signs Routine 11/25/2023 15:50 EDT Temperature Oral 36.9 DegC Heart Rate Monitored 69 bpm Respiratory Rate 20 br/min Systolic Blood Pressure Non-Invasive 111 mmHg Diastolic Blood Pressure Non-Invasive 72 mmHg Mean Arterial Pressure (NBP) 83 mmHg Reason For Taking VItal Signs Routine 11/25/2023 11:05 EDT Temperature Oral 36.7 DegC Heart Rate Monitored 63 bpm Respiratory Rate 15 br/min Systolic Blood Pressure Non-Invasive 103 mmHg Diastolic Blood Pressure Non-Invasive 63 mmHg Mean Arterial Pressure (NBP) 75 mmHg Reason For Taking VItal Signs Routine 11/25/2023 8:40 EDT Apical Heart Rate 75 bpm 11/25/2023 7:01 EDT Temperature Oral 36.6 DegC Heart Rate Monitored 72 bpm Respiratory Rate 20 br/min Systolic Blood Pressure Non-Invasive 110 mmHg Diastolic Blood Pressure Non-Invasive 68 mmHg Mean Arterial Pressure (NBP) 81 mmHg Reason For Taking VItal Signs Routine 11/25/2023 4:09 EDT Temperature Oral 37.0 DegC Heart Rate Monitored 61 bpm Respiratory Rate 16 br/min Systolic Blood Pressure Non-Invasive 105 mmHg Diastolic Blood Pressure Non-Invasive 60 mmHg Mean Arterial Pressure (NBP) 74 mmHg Reason For Taking VItal Signs Routine 11/25/2023 1:18 EDT Heart Rate Monitored 59 bpm LOW , Oxygen Therapy : Oxygen Therapy & Oxygenation Information 11/26/2023 13:24 EDT Oxygen Saturation 100 % 11/26/2023 13:09 EDT Oxygen Saturation 99 % 11/26/2023 12:54 EDT FiO2 40 % Oxygen Saturation 100 % 11/26/2023 12:25 EDT FiO2 100 % HME (Heat & Moisture Exchanger) On 11/26/2023 12:24 EDT FiO2 100 % Oxygen Therapy Ventilator Oxygen Saturation 100 % 11/26/2023 12:20 EDT Oxygen Saturation 100 % % 11/26/2023 12:15 EDT Oxygen Saturation 100 % % 11/26/2023 12:10 EDT Oxygen Saturation 99.8 % % 11/26/2023 12:05 EDT Oxygen Saturation 99.7 % % 11/26/2023 12:00 EDT Oxygen Saturation 99.6 % % 11/26/2023 11:55 EDT Oxygen Saturation 99.8 % % 11/26/2023 11:50 EDT Oxygen Saturation 100 % % 11/26/2023 11:45 EDT Oxygen Saturation 100 % % 11/26/2023 11:40 EDT Oxygen Saturation 100 % % 11/26/2023 11:35 EDT Oxygen Saturation 99.3 % % 11/26/2023 11:30 EDT Oxygen Saturation 100 % % 11/26/2023 11:25 EDT Oxygen Saturation 100 % % 11/26/2023 11:20 EDT Oxygen Saturation 100 % % 11/26/2023 11:15 EDT Oxygen Saturation 100 % % 11/26/2023 11:10 EDT Oxygen Saturation 100 % % 11/26/2023 11:05 EDT Oxygen Saturation 100 % % 11/26/2023 11:00 EDT Oxygen Saturation 100 % % 11/26/2023 10:55 EDT Oxygen Saturation 100 % % 11/26/2023 10:50 EDT Oxygen Saturation 100 % % 11/26/2023 10:45 EDT Oxygen Saturation 100 % % 11/26/2023 10:40 EDT Oxygen Saturation 100 % % 11/26/2023 10:35 EDT Oxygen Saturation 100 % % 11/26/2023 10:30 EDT Oxygen Saturation 100 % % 11/26/2023 10:25 EDT Oxygen Saturation 100 % % 11/26/2023 10:20 EDT Oxygen Saturation 100 % % 11/26/2023 10:15 EDT Oxygen Saturation 100 % % 11/26/2023 10:10 EDT Oxygen Saturation 100 % % 11/26/2023 10:05 EDT Oxygen Saturation 100 % % 11/26/2023 10:00 EDT Oxygen Saturation 100 % % 11/26/2023 9:55 EDT Oxygen Saturation 100 % % 11/26/2023 9:50 EDT Oxygen Saturation 100 % % 11/26/2023 9:45 EDT Oxygen Saturation 100 % % 11/26/2023 9:40 EDT Oxygen Saturation 100 % % 11/26/2023 9:35 EDT Oxygen Saturation 100 % % 11/26/2023 9:30 EDT Oxygen Saturation 100 % % 11/26/2023 9:25 EDT Oxygen Saturation 100 % % 11/26/2023 9:20 EDT Oxygen Saturation 100 % % 11/26/2023 9:15 EDT Oxygen Saturation 100 % % 11/26/2023 9:10 EDT Oxygen Saturation 100 % % 11/26/2023 9:05 EDT Oxygen Saturation 100 % % 11/26/2023 9:00 EDT Oxygen Saturation 100 % % 11/26/2023 8:55 EDT Oxygen Saturation 100 % % 11/26/2023 8:50 EDT Oxygen Saturation 100 % % 11/26/2023 8:45 EDT Oxygen Saturation 99.6 % % 11/26/2023 8:40 EDT Oxygen Saturation 99.7 % % 11/26/2023 8:35 EDT Oxygen Saturation 99.3 % % 11/26/2023 8:30 EDT Oxygen Saturation 98.9 % % 11/26/2023 8:25 EDT Oxygen Saturation 99.2 % % 11/26/2023 8:20 EDT Oxygen Saturation 99.4 % % 11/26/2023 8:15 EDT Oxygen Saturation 99.6 % % 11/26/2023 8:10 EDT Oxygen Saturation 98.9 % % 11/26/2023 3:19 EDT Oxygen Therapy Room air Oxygen Saturation 96 % 11/25/2023 22:55 EDT Oxygen Therapy Room air Oxygen Saturation 96 % 11/25/2023 19:06 EDT Oxygen Therapy Room air Oxygen Saturation 97 % 11/25/2023 15:50 EDT Oxygen Therapy Room air Oxygen Saturation 93 % 11/25/2023 11:05 EDT Oxygen Therapy Room air Oxygen Saturation 95 % 11/25/2023 7:01 EDT Oxygen Therapy Room air Oxygen Saturation 96 % 11/25/2023 4:09 EDT Oxygen Therapy Room air Oxygen Saturation 97 % . Mental status: Continued sedation for medical necessity. Respiratory function. Respiratory support: airway in place oral airway in place, ventilator Ventilator settings from flowsheet. CV function: Stable. Cardiovascular support: none. Pain: Sedated. Nausea status: Not Assessed. Postoperative hydration status: within normal limits. Notes: Continued sedation for medical necessity.. Digitally Signed by MICHAEL CHIN MD on 11/26/2023 01:45 PM [facility] 11-26-2023 Note Exam Date Time Procedure Performing Provider Status 11/26/23 1:37 PM TRE in CVOR Auth (Verifi ed) [facility] 08-14-2024 Critical care medicine Consult note Date of Service 11/26/2023 Reason for Consultation Critical care management in the CVSICU Referring Physician Dr. Henry History of Present Illness 68-year-old male with history of multiple sclerosis, epilepsy (last seizure 2011), anxiety/depression, iron deficiency anemia, smoker (quit age 53), presented to [facility] on 11/21/2023 with complaints of left-sided arm pain, retrosternal chest pain with exertion associated with diaphoresis. He had negative troponins x 2. Echocardiogram showed an EF of 70%. Stress test 11/21 showed ischemia in the LAD territory and heart cath on 11/23 showed 95% stenosis of the mid LAD and 95% stenosis of the first diagonal coronary artery. He was transferred to [place] on 11/23 for surgical revascularization. Today, 11/25 he underwent CABG x 2, WILLETT to the LAD, AO to the first diagonal with RSVG. The surgery was done off-pump. He was brought to this cardiovascular surgical intensive care unit on mechanical ventilation. He is sedated on propofol at 10 mcg/kg/min. Patient is normotensive on norepinephrine at 2 mcg/min, well- perfused, oxygenating well on mechanical ventilation, no arrhythmias and no sig ns of bleeding. Central line and arterial line in place. Review of Systems Review of systems unobtainable as patient is under the effects of anesthesia. Physical Exam Vitals and Measurements T: 36.3 C (Oral) TMIN: 14.47 C TMAX: 36.9 C (Oral) HR: 76 (Monitored) RR: 14 (Total) RR: 0 (Spontaneous) BP: 111/63 BP: 112/58(Line) SpO2: 100% Weight Dosing Weight: 83.8 kg (11/24/23) General: Sedated on mechanical ventilation Head: Normocephalic, atraumatic ENT: PERRLA, eyes: Sclera nonicteric, oral: Mucous membranes moist, ET tube in place Neck: Supple, no JVD, left subclavian triple-lumen noted Cardiac: Regular rate and rhythm, normal S1-S2, no murmur, rubs, or gallops Respiratory: Lungs clear, resps easy, on mechanical ventilation assist-control, 14, 620, 40%, 5 Abdomen: Soft, nontender, normoactive bowel sounds Musculoskeletal: No joint deformities, no muscle tenderness Extremities: 2+ pulses, no edema, right brachial arterial line in placeKeep home metoprolol 25 mg twice daily on hold while requiring vasopressors. Neurological: Sedated Skin: Warm & dry, midsternal wound noted, dressing dry and intact, 2 mediastinal chest tubes and 1 left pleural chest tube with serosanguineous drainage, no airleak Lab Results 11/25 12:34 WBC: 31.8 H Hgb: 9.0 L Hct: 28.2 L Platelet: 327 Protime: 14.0 PT International Ratio: 1.2 Glucose Level: 136 H Sodium Level: 141 Potassium Level: 3.9 BUN: 23.0 H Creatinine Lvl (s): 0.80 ABG: pH 7.39, pCO2 31, pO2 156 Imaging Results and Diagnostics XR Enteric Tube Placement Result Date: November 26, 2023 Verified By: LEIDA KNUTSON MD CLINICAL STATEMENT: IMPRESSION: XR Chest 1 View Result Date: November 26, 2023 Verified By: LEIDA KNUTSON MD CLINICAL STATEMENT: IMPRESSION: Interval sternotomy and interventional changes as above. I have personally reviewed theimages of this examination and agree with theresident's findings and interpretation. XR Chest 1 View Result Date: November 24, 2023 Verified By: JAMEEL AREVALO MD CLINICAL STATEMENT: IMPRESSION: Left basilar atelectasis. I have personally reviewed the images of this examination andagree with theresident's findings and interpretation. Assessment/Plan Anxiety and depression CAD in [place] artery Iron deficiency anemia Multiple sclerosis Seizure disorder Assessment: 1. Multivessel coronary artery disease status post CABG x 2 (11/26/2023) on mechanical ventilation postop 2. History of multiple sclerosis, epilepsy, anxiety depression, anemia Plan: 1. Patient brought to CVSICU status post CABG x 2, off-pump, on mechanical ventilation. Plan is to interrupt sedation and place patient on spontaneous breathing trial. Suspect patient will be able tosuccessfully come off mechanical ventilation. 2. Titrate norepinephrine to keep mean arterial pressure greater than 65 mmHg. 3. Keep home metoprolol 25 mg twice daily on hold while requiring vasopressors. 4. Once patient extubated and able to swallow, resume home antiepileptic zonisamide and dimethyl fumarate for his MS. 5. Continue Protonix IV for GI prophylaxis 6. Heparin for DVT prophylaxis once cleared by cardiothoracic surgery. 7. Laboratory data in the a.m. CBC BMP CODE STATUS full code Plan of care discussed with Dr. Sven Kilpatrick MD. Please see his addendum below for details. Problem List/Past Medical History Ongoing Anxiety and depression CAD in [place] artery Iron deficiency anemia Multiple sclerosis Seizure disorder Procedure/Surgical History Splenectomy: 1968 Catheterization of left heart Medications Inpatient albumin human 5% intravenous solution, 12.5 gram(s)= 250 mL, IV Piggyback (MED), AsDirected, PRN aspirin 325 mg oral delayed release tablet, 325 mg= 1 tab(s), Oral, qDayM Calcium Chloride Calcium Chloride Cardioplegic [place], 1052.8 mL, Miscellaneous, Once ceFAZolin, 3 gram(s)= 80 mL, IV Piggyback, q8h Dexmedetomidine for IV 400 mcg [0.2 mcg/kg/hr] + sodium chloride 0.9% IV solution (T) 96 mL Dextrose 5% with 0.45% NaCl intravenous solution 1,000 mL, 1000 mL, Intravenous Dextrose 50% IV Push, 12.5 gram(s)= 25 mL, IV Push, AsDirected, PRN epinephrine for IV 4 mg [0.01 mcg/min] + sodium chloride 0.9% IV solution (T) 250 mL fentaNYL, 25 mcg= 0.5 mL, IV Push, q15min, PRN glucose, 25 gram(s)= 50 mL, IV Push, AsDirected, PRN Insulin Regular for IV 100 unit(s) + NS Premix Diluent 100 mL insulin regular human recombinant 100 units/mL injectable solution, 10 unit(s)= 0.1 mL, IV Push, q1h, PRN magnesium sulfate, 2 gram(s)= 50 mL, IV Piggyback, AsDirected, PRN magnesium sulfate, 4 gram(s)= 50 mL, IV Piggyback, AsDirected, PRN mupirocin 2% topical ointment, 1 david, Nostril, each, q12h Nitroglycerin 100 mcg/mL injection, 100 mcg= 1 mL, IV Push, AsDirected, PRN nitroGLYcerin for IV 50 mg [5 mcg/min] + Dextrose Premix titrate 250 mL nitroprusside for IV 50 mg [0.2 mcg/kg/min] + NS PMX titrate 100 mL Norepinephrine for IV 8 mg [0.01 mcg/kg/min] + NS PMX titrate 250 mL Norepinephrine for IV 8 mg [0.01 mcg/min] + NS PMX titrate 250 mL ocular lubricant ophthalmic oint, 1 david, Eyes, both, q8h ocular lubricant ophthalmic oint, 1 david, Eyes, both, AsDirected, PRN ocular lubricant ophthalmic soln, 1 drop(s), Eyes, both, q8h ocular lubricant ophthalmic soln, 1 drop(s), Eyes, both, AsDirected, PRN ondansetron, 4 mg= 2 mL, IV Push, q4h, PRN pantoprazole IV Push, 40 mg, IV Push, qDayAC Peridex 0.12% oral rinse liquid, 15 mL, Swish & Spit, QID potassium chloride bolus, 20 mEq= 50 mL, IV Piggyback, AsDirected, PRN potassium chloride bolus, 20 mEq= 50 mL, IV Piggyback, AsDirected, PRN potassium chloride bolus, 20 mEq= 50 mL, IV Piggyback, AsDirected, PRN Propofol for IV 1,000 mg [10 mcg/kg/min] + IV Premix Diluent titrate 100 mL protamine, 50 mg= 5 mL, IV Push, Once, PRN Sodium Chloride 0.9% intravenous solution 1,000 mL, 1000 mL, Intravenous Sodium Chloride 0.9% intravenous solution 500 mL, 500 mL, Intravenous Sodium Phosphate for IVPB Bolus Home acetaminophen, 650 mg, Oral, q6hr, PRN aspirin 81 mg oral tablet, chewable, 81 mg= 1 tab(s), Oral, Daily, Not taking atorvastatin 80 mg oral tablet, 80 mg= 1 tab(s), Oral, qHS, Not taking citalopram, 40 mg, Oral, qDay dimethyl fumarate 240 mg oral delayed release capsule, 240 mg= 1 cap(s), Oral, BID enoxaparin, 40 mg, Subcutaneous, qDay ferrous gluconate 324 mg (38 mg elemental iron) oral tablet, 324 mg= 1 tab(s), Oral, BID metoprolol tartrate 25 mg oral tablet, 25 mg= 1 tab(s), Oral, BID zonisamide 100 mg oral capsule, 200 mg= 2 cap(s), Oral, Daily zonisamide 100 mg oral capsule, 300 mg= 3 cap(s), Oral, qHS Allergies NKA Social History Alcohol Use: social. Frequency: 1-2 times per year., 11/24/2023 Substance Abuse Use: Never., 11/24/2023 Tobacco Nicotine Use: Former smoker, quit more than 30 days ago. Type: Cigarettes. Started at age: 16 Years. Stopped at age: 53 Years., 11/24/2023 Family History Cancer: Mother.Negative: Father, Sister, Brother, Daughter, Son and Grandparent. Heart attack: Negative: Father. Heart disease: Brother. Stroke: Father. Health Status Family Member(s) Immunizations No qualifying data available. Digitally Signed by CHUNG LU on 11/26/2023 02:14 PM [id number] Note ORIGINAL HISTORY: Nasogastric tube placement COMPARISON: No FINDINGS: There is a nasogastric tube is tip is below the diaphragm, but more proximally is coiled in the distal esophagus. Interpreted by: Leida Knutson MD Preliminary Report By: Leida Knutson MD Electronically signed By Leida Knutson MD Dictated Date: 11/26/2023 1:20:16 PM Prelim Date: 11/26/2023 1:21:23 PM Sign Date: 11/26/2023 1:21:23 PM Ordering Provider: [facility] Note ORIGINAL EXAMINATION: ONE XRAY VIEW OF THE CHEST TECHNIQUE: CHEST ONE VIEW AP/PA COMPARISON: November 24, 2023. HISTORY: ORDERING SYSTEM PROVIDED HISTORY: Reason for Exam: Endotracheal tube placement Check line placement FINDINGS: Interval sternotomy with bilateral mediastinal drains in place. Enteric tube with side port just distal to the GE junction. Endotracheal tube projects 4.7 cm above the sammie. Left subclavian approach central line with tip in the mid SVC. Stable cardiomediastinal silhouette. Similar left basilar atelectasis. No pneumothorax, vascular congestion, pleural effusion, consolidation. IMPRESSION: Interval sternotomy and interventional changes as above. I have personally reviewed the images of this examination and agree with the resident's findings and interpretation. Interpreted by: Leida Knutson MD Preliminary Report By: Tawanda Penaloza MD Electronically signed By Leida Knutson MD Dictated Date: 11/26/2023 1:15:29 PM Prelim Date: 11/26/2023 1:29:23 PM Sign Date: 11/26/2023 1:29:23 PM Ordering Provider: [facility]08-14-2024 NoteSINUS RHYTHM BORDERLINE LEFT AXIS DEVIATION ANTERIOR INFARCT, POSSIBLY ACUTE Electronic Signature: KATHY RICHARDS MD 11/27/2023 09:57:43[facility] 08-14-2024 Anesthesiology Consult note Patient: JUANITA JAY Age: 68 years Sex: Male : 1955 Associated Diagnoses: None Author: MICHAEL CHIN MD Preoperative Information Greater than 8 hours Anesthesia history Patient's history: negative. Family's history: negative. Review of Systems Ear/Nose/Mouth/Throat: See Problem List. Respiratory: See Problem List. Cardiovascular: See Problem List. Gastrointestinal: See Problem List. Genitourinary: See Problem List. Endocrine: See Problem List. Musculoskeletal: See Problem List. Integumentary: See Problem List. Neurologic: See Problem List. Health Status Allergies: Allergic Reactions (Selected) NKA, Allergies (1) ActiveSeverityReaction NKANone Documented Current medications: (Selected) Inpatient Medications Ordered Adrenalin 4 mg + Normal Saline 250 mL: Infuse as directed for CVOR 1, Intravenous, Stop: 11/26/23 23:59:00 EDT Cardioplegic [place]: 1,052.8 mL, 0 mL/hr, Miscellaneous, Once Dextrose 50% IV Push: 12.5 gram(s), 25 mL, IV Push, AsDirected, PRN: Hypoglycemia Feosol: 325 mg, 1 tab(s), Oral, BIDM Heparin 10,000 units/mL: 10,000 unit(s), 1 mL, mL/hr, Miscellaneous, PREOP pharm Home Meds Verified: Home Meds Verified, Miscellaneous, qDay Kefzol: 2 gram(s), 20 mL, 240 mL/hr, IV Push (INT), PREOP pharm Lopressor: 12.5 mg, 1 EA, Oral, PREOP pharm NS 500 mL + cefuroxime 1.5 gram(s): as directed to CVOR 1, Topical (CONT), Stop: 11/27/23 5:59:00 EDT No Vitamin E,clopidogrel (Plavix), 5 days before surgery: 1 EA, Miscellaneous, Daily No prasugrel (Effient) 7 days before surgery: 1 EA, Miscellaneous, Daily Peridex 0.12% oral rinse liquid: 15 mL, Oral, BID Tylenol: 650 mg, 2 tab(s), Oral, q4h, PRN: Pain, scale 1-10 aspirin 81 mg oral tablet, chewable: 81 mg, 1 tab(s), Oral, Daily atorvastatin: 80 mg, 1 tab(s), Oral, qHS citalopram: 40 mg, 1 tab(s), Oral, qDay dimethyl fumarate: 240 mg, 1 cap(s), Oral, BID insulin regular 100 unit(s) + Normal Saline 100 mL: Infuse as directed for CVOR 1, Intravenous, Stop: 11/26/23 23:59:00 EDT melatonin: 3 mg, 1 tab(s), Oral, qHS, PRN: Sleep metoprolol tartrate 25 mg oral tablet: 25 mg, 1 tab(s), Oral, BID mupirocin 2% topical ointment: 1 david, Nostril, each, BID norepinephrine 8 mg + Normal Saline 250 mL: Infuse as directed for CVOR 1, Intravenous, Stop: 11/26/23 23:59:00 EDT tranexamic acid 1 gram(s): As directed in CVOR 1, IV Piggyback, Stop: 11/26/23 23:59:00 EDT tranexamic acid 1 gram(s): As directed in CVOR 1, IV Piggyback, Stop: 11/26/23 23:59:00 EDT tranexamic acid 1 gram(s): As directed in CVOR 1, IV Piggyback, Stop: 11/26/23 23:59:00 EDT zonisamide: 200 mg, 2 cap(s), Oral, Daily zonisamide: 300 mg, 3 cap(s), Oral, qHS Documented Medications Documented acetaminophen: 650 mg, Oral, q6hr, PRN: as needed for pain, 0 Refill(s) aspirin 81 mg oral tablet, chewable: 81 mg, 1 tab(s), Oral, Daily, 90 tab(s), 0 Refill(s) atorvastatin 80 mg oral tablet: 80 mg, 1 tab(s), Oral, qHS, 90 tab(s), 0 Refill(s) citalopram: 40 mg, Oral, qDay, 0 Refill(s) dimethyl fumarate 240 mg oral delayed release capsule: 240 mg, 1 cap(s), Oral, BID, 60 cap(s), 0 Refill(s) enoxaparin: 40 mg, Subcutaneous, qDay, 0 Refill(s) ferrous gluconate 324 mg (38 mg elemental iron) oral tablet: 324 mg, 1 tab(s), Oral, BID, 100 tab(s), 0 Refill(s) metoprolol tartrate 25 mg oral tablet: 25 mg, 1 tab(s), Oral, BID, 180 tab(s), 0 Refill(s) zonisamide 100 mg oral capsule: 200 mg, 2 cap(s), Oral, Daily, 0 Refill(s) zonisamide 100 mg oral capsule: 300 mg, 3 cap(s), Oral, qHS, 0 Refill(s), Medications (27) Active Scheduled: (17) aspirin 81 mg Chewable 81 mg 1 tab(s), Oral, Daily atorvastatin 80 mg tablet 80 mg 1 tab(s), Oral, qHS cardioplegic [place] formula 1,052.8 mL, Miscellaneous, Once ceFAZolin syringe 2 gram(s) 20 mL, IV Push (INT), PREOP pharm chlorhexidine topical 0.12% Liquid (60 mL) 15 mL, Oral, BID citalopram 40 mg tablet 40 mg 1 tab(s), Oral, qDay dimethyl fumarate [address] capsule 240 mg 1 cap(s), Oral, BID ferrous sulfate 325 mg Tablet 325 mg 1 tab(s), Oral, BIDM heparin 10,000 unit(s) 1 mL, Miscellaneous, PREOP pharm metoprolol tartrate 12.5 mg ( HALF-TAB ) 12.5 mg 1 EA, Oral, PREOP pharm metoprolol tartrate 25 mg tablet 25 mg 1 tab(s), Oral, BID Misc communication order Home Meds Verified, Miscellaneous, qDay mupirocin 2% Ointment 22 Gram(s) tube 1 david, Nostril, each, BID No prasugrel (Effient) 7 days before surgery 1 EA, Miscellaneous, Daily NO vitamin E, clopidogrel (Plavix) 5 days before surgery 1 EA, Miscellaneous, Daily zonisamide 100 mg Capsule 300 mg 3 cap(s), Oral, qHS zonisamide 100 mg Capsule 200 mg 2 cap(s), Oral, Daily Continuous: (7) epinephrine 4 mg + Sodium Chloride 0.9% 250 mL 250 mL, Intravenous insulin regular 100 unit(s) + Sodium Chloride 0.9% 100 mL 100 mL, Intravenous norepinephrine 8 mg + Sodium Chloride 0.9% 250 mL 250 mL, Intravenous NS (0.9% nacl) 500 mL + cefuroxime 1.5 gram(s) 500 mL, Topical (CONT) tranexamic acid PMX 1 gram(s) , IV Piggyback tranexamic acid PMX 1 gram(s) , IV Piggyback tranexamic acid PMX 1 gram(s) , IV Piggyback PRN: (3) acetaminophen 325 mg Tablet 650 mg 2 tab(s), Oral, q4h dextrose 50% Solution Disp syringe 50 mL 12.5 gram(s) 25 mL, IV Push, AsDirected melatonin 3 mg tablet 3 mg 1 tab(s), Oral, qHS Problem list: Medical CAD in morongo artery / SNOMED CT 52740986 / Confirmed Iron deficiency anemia / SNOMED CT 482866087 / Confirmed Anxiety and depression / SNOMED CT 946155064 / Confirmed Multiple sclerosis / SNOMED CT 67260111 / Confirmed Seizure disorder / SNOMED CT 678153510 / Confirmed, Active Problems (5) Anxiety and depression 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 Catheterization of left heart (889591794). Social History: Social & Psychosocial Habits Alcohol 11/24/2023 Use: social Frequency: 1-2 times per year Substance Abuse 11/24/2023 Use: Never Tobacco 11/24/2023 Tobacco Use: Former smoker, quit more Type: Cigarettes Started at age: 16 Years Stopped at age: 53 Years Physical Examination Vital Signs 11/26/2023 3:19 EDT Temperature Oral 36.3 DegC Heart Rate Monitored 60 bpm Respiratory Rate 18 br/min Systolic Blood Pressure Non-Invasive 111 mmHg Diastolic Blood Pressure Non-Invasive 63 mmHg Mean Arterial Pressure (NBP) 78 mmHg Reason For Taking VItal Signs Routine 11/25/2023 23:33 EDT Heart Rate Monitored 69 bpm Reason For Taking VItal Signs Routine 11/25/2023 22:55 EDT Temperature Oral 36.9 DegC Heart Rate Monitored 66 bpm Respiratory Rate 18 br/min Systolic Blood Pressure Non-Invasive 106 mmHg Diastolic Blood Pressure Non-Invasive 63 mmHg Mean Arterial Pressure (NBP) 75 mmHg Reason For Taking VItal Signs Routine 11/25/2023 19:43 EDT Heart Rate Monitored 71 bpm Reason For Taking VItal Signs Routine 11/25/2023 19:06 EDT Temperature Oral 36.9 DegC Heart Rate Monitored 64 bpm Respiratory Rate 18 br/min Systolic Blood Pressure Non-Invasive 101 mmHg Diastolic Blood Pressure Non-Invasive 56 mmHg LOW Mean Arterial Pressure (NBP) 70 mmHg Reason For Taking VItal Signs Routine 11/25/2023 17:01 EDT Apical Heart Rate 68 bpm 11/25/2023 16:10 EDT Heart Rate Monitored 62 bpm Reason For Taking VItal Signs Routine 11/25/2023 15:50 EDT Temperature Oral 36.9 DegC Heart Rate Monitored 69 bpm Respiratory Rate 20 br/min Systolic Blood Pressure Non-Invasive 111 mmHg Diastolic Blood Pressure Non-Invasive 72 mmHg Mean Arterial Pressure (NBP) 83 mmHg Reason For Taking VItal Signs Routine 11/25/2023 11:05 EDT Temperature Oral 36.7 DegC Heart Rate Monitored 63 bpm Respiratory Rate 15 br/min Systolic Blood Pressure Non-Invasive 103 mmHg Diastolic Blood Pressure Non-Invasive 63 mmHg Mean Arterial Pressure (NBP) 75 mmHg Reason For Taking VItal Signs Routine 11/25/2023 8:40 EDT Apical Heart Rate 75 bpm 11/25/2023 7:01 EDT Temperature Oral 36.6 DegC Heart Rate Monitored 72 bpm Respiratory Rate 20 br/min Systolic Blood Pressure Non-Invasive 110 mmHg Diastolic Blood Pressure Non-Invasive 68 mmHg Mean Arterial Pressure (NBP) 81 mmHg Reason For Taking VItal Signs Routine 11/25/2023 4:09 EDT Temperature Oral 37.0 DegC Heart Rate Monitored 61 bpm Respiratory Rate 16 br/min Systolic Blood Pressure Non-Invasive 105 mmHg Diastolic Blood Pressure Non-Invasive 60 mmHg Mean Arterial Pressure (NBP) 74 mmHg Reason For Taking VItal Signs Routine 11/25/2023 1:18 EDT Heart Rate Monitored 59 bpm LOW Vital Signs (last 24 hrs) Last Charted Temp Oral36.3 DegC (NOV 25 03:19) Heart Rate [id number] bpm (NOV 25 03:19) SUV772 mmHg (NOV 25 03:19) DBP63 mmHg (NOV 25:) General: Alert and oriented. Airway: Normal temporomandibular joint mobility, Normal mouth, Normal throat, Normal neck range of motion, Trachea midline. Mallampati classification: II (soft palate, fauces, uvula visible). Head: Normocephalic. Dentition Evaluation: Intact, Own teeth, Denies loose/chipped teeth. Respiratory: Lungs are clear to auscultation, Respirations are non-labored. Cardiovascular: Normal rate, No murmur. Heart Sounds: Normal. Neurologic: Alert, Oriented. Review / Management Results review: Labs (Last four charted values) WBC 10.5(NOV 23) Hgb L 11.6(NOV 23) Hct L 36.4(NOV 23) Plt 427(NOV 23)430(NOV 23) Na 137(NOV 23) K 3.7(NOV 23) CO2 24(NOV 23) Cl H 113(NOV 23) Cr 0.93(NOV 23) BUN 19.0(NOV 23) Glucose 99(NOV 23) Ca 8.7(NOV 23) PT 11.9(NOV 23) INR 1.0(NOV 23) PTT 34.7(NOV 23) . Assessment and Plan [place] [employer] (ASA) physical status classification: Class IV. Anesthetic Preoperative Plan Premedication: None. Anesthetic technique: General. Induction: intravenously. Maintenance airway: Oral endotracheal tube. Special techniques: Warming device, Extracorporeal. Special Monitoring: Arterial line, Central venous catheter, Continuous transesophageal echocardiogram. Postoperative pain management: Per surgeon. Risks discussed: nausea, vomiting, headache, sore throat, dental injury, hypotension, allergic reaction, serious complications, Heart Problems, Lung Problems, Stroke, Intraoperative Recall, . Informed consent: signed by patient. Notes: After completion of focused history and physical examination, the risks and benefits of anesthetic options, specialized invasive monitoring and transesophageal echocardiography were discussed with patient. Rare but serious and potentially life-threatening complications were also discussed with the patient(Specific items discussed: nausea, sore throat, dysphagia, heart problems, lung problems, strokes, heart attacks, intraoperative recall and ). Planned ICU admission and post-operative ventilation were addressed. The risks and benefits of possible blood transfusions were discussed. All questions were answered. The patient verbalizes understanding and agrees to proceed.. Beta Junior: Beta Junior Taken Within 24 Hrs: Yes. Digitally Signed by MICHAEL CHIN MD on 11/26/2023 07:19 AM [id number] Note* Exam Date Time Procedure Performing Provider Status 11/25/23 1:40 PM VL Palmar Arch Study Auth (Verified) [facility] 08-13-2024 History and physical note Date of Service 11/24/2023 Chief Complaint Transfer from [facility] for coronary artery bypass grafting History of Present Illness This is a 68-year-old male with past medical history of seizures (last seizure 2011), multiple sclerosis, anxiety, depression, and iron deficiency anemia. He had presented to [facility] on 11/21/2023 as of left arm pain and retrosternal chest pain with exertion. His symptoms were associated with diaphoresis. He denied any syncope, PND, or orthopnea. He had negative troponins x 2. Transthoracic echocardiogram on 11/21/2023 revealed an EF of 70%. He underwent a stress test on 11/22/2023 which revealed possible ischemia in the LAD territory. Heart catheterization completed on 11/24/2019 for revealed a normal left main however revealed 95% stenosis of the mid LAD and 95% stenosis of the first diagonal coronary artery. Patient was transferred to [facility] for surgical revascularization. STS risk assessment for CABG: Procedure Type: Isolated CABG Perioperative Outcome Estimate % Operative Mortality 0.451% Morbidity & Mortality 2.71% Stroke 0.426% Renal Failure 0.304% Reoperation 1.64% Prolonged Ventilation 1.23% Deep Sternal Wound Infection 0.057% Long Hospital Stay (>14 days) 1.41% Short Hospital Stay (<6 days)* 71.7% Review of Systems Constitutional: Denies fever, chills, weight loss, weight gain HEENT: Has own teeth, wears glasses; denies any dysphagia Respiratory: See HPI CV: See HPI Vascular: Denies claudication, varicose veins, nonhealing ulcers GI: Denies nausea, vomiting, constipation, diarrhea : Denies dysuria, hematuria Neuro: Generalized weakness; seizures with last being in 2011; denies any tremors, memory loss Endo: Denies heat/cold tolerance, hair loss, polyuria Hemo-/oncology: Denies bleeding, bruising, lymphadenopathy Muscular/skeletal: Denies arthralgia, back pain, leg cramps Psych: Positive anxiety and depression; denies any suicidal ideations Physical Exam Vitals and Measurements T: 37 C (Oral) HR: 77 (Monitored) RR: 18 BP: 116/79 SpO2: 97% HT: 183 cm WT: 83.8 kg BMI: 25.02 Weight Dosing Weight: 83.8 kg (11/24/23) Constitutional: Alert, oriented x 4, appropriate HEENT: Normocephalic, atraumatic, dentition good, no carotid bruit, PERRLA +3 mm brisk bilaterally Lungs: Unlabored respirations, lung sounds clear bilaterally, SpO2 97% on room air Heart: Normal sinus rhythm, S1-S2, no murmur or rub, heart rate 77 Abdomen: Soft, nontender, bowel sounds present Extremities: Well-perfused, pedal pulses +1 bilaterally, no lower leg edema Integumentary: Erythema and warmth noted in left antecubital from IV site Neuro: Cranial nerves II through VIII intact Lab Results No 36 Hour Lab Data Assessment/Plan 1. CAD in morongo artery Heart catheterization completed at [facility] on 11/24/2023 revealed 95% stenosis of the mid LAD and 95% stenosis of the first diagonal coronary artery. On aspirin, metoprolol, atorvastatin Surgical workup will be ordered. Patient will be tentatively scheduled for coronary artery bypass grafting with Dr. Henry on 11/26/2023 2. Iron deficiency anemia Resume home iron supplement 3. Multiple sclerosis Patient follows with a neurologist at [facility] He ambulates with a cane Will continue home dimethyl fumarate 4. Anxiety and depression Resume home citalopram 5. 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 Iron deficiency anemia Multiple sclerosis Seizure disorder Procedure/Surgical History Splenectomy: 1968 Catheterization of left heart Medications Home Medications (10) Active acetaminophen 650 mg, PRN, Oral, q6hr aspirin 81 mg oral tablet, chewable 81 mg = 1 tab(s), Oral, Daily atorvastatin 80 mg oral tablet 80 mg = 1 tab(s), Oral, qHS citalopram 40 mg, Oral, qDay dimethyl fumarate 240 mg oral delayed release capsule 240 mg = 1 cap(s), Oral, BID enoxaparin 40 mg, Subcutaneous, qDay ferrous gluconate 324 mg (38 mg elemental iron) oral tablet 324 mg = 1 tab(s), Oral, BID metoprolol tartrate 25 mg oral tablet 25 mg = 1 tab(s), Oral, BID zonisamide 100 mg oral capsule 200 mg = 2 cap(s), Oral, Daily zonisamide 100 mg oral capsule 300 mg = 3 cap(s), Oral, qHS Allergies NKA Social History Alcohol Use: social. Frequency: 1-2 times per year., 11/24/2023 Substance Abuse Use: Never., 11/24/2023 Tobacco Nicotine Use: Former smoker, quit more than 30 days ago. Type: Cigarettes. Started at age: 16 Years. Stopped at age: 53 Years., 11/24/2023 Family History Cancer: Mother.Negative: Father, Sister, Brother, Daughter, Son and Grandparent. Heart attack: Negative: Father. Heart disease: Brother. Stroke: Father. Health Status Family Member(s) Immunizations No qualifying data available. Code Status Code Status - Ordered -- 11/24/23 19:04:00 EDT, Full Code, Constant Order This note was generated using a voice recognition system. As a result, errors are possible and common, including incorrect words, spellings, grammar, gender, phrases, and punctuation that may be out of context or that were missed in checking this note before saving. Reasonable effort is made to correct such errors, but with demands of normal work flow, many are missed. Digitally Signed by YU RECIO on 11/24/2023 07:18 PM [id number] Telephone encounter Note* Telephone Encounter - Elisha Anand LPN - 11/25/2023 9:53 AM EDT Received ED summary, EKG, chest xray, labs for chest pain from [facility]. Placed in provider's inbox for review. Route to MA scanning [facility]08-13-2024 Miscellaneous Notes* Telephone Encounter - Elisha Anand LPN - 11/25/2023 9:53 AM EDT Received ED summary, EKG, chest xray, labs for chest pain from [facility]. Placed in provider's inbox for review. [facility] to [facility]* Exam Date Time Procedure Performing Provider Status 11/25/23 8:53 AM VL Vein Mapping US/D oppler Both Legs-CV Auth (Verified) [facility] 08-13-2024 Note* Exam Date Time Procedure Performing Provider Status 11/25/23 8:53 AM VL Carotid US/Dopple r Complete - CV Auth (Verified) [facility] 08-13-2024 Note* Exam Date Time Procedure Performing Provider Status 11/25/23 8:53 AM VL Radial Mapping Study A uth (Verified) [facility] 08-12-2024 Note ORIGINAL EXAMINATION: ONE XRAY VIEW OF THE CHEST11/24/2023 7:46 pm COMPARISON: None available at time of dictation. HISTORY: ORDERING SYSTEM PROVIDED HISTORY: Reason for Exam: Chest Pain FINDINGS: Cardiomediastinal contours are within normal limits. Left basilar atelectasis. No focal consolidation or pulmonary edema. No pneumothorax or pleural effusion. No acute osseous abnormalities. IMPRESSION: Left basilar atelectasis. I have personally reviewed the images of this examination and agree with the resident's findings and interpretation. Interpreted by: Jameel Arevalo Preliminary Report By: Damien Swan Electronically signed By Jameel Arevalo Dictated Date: 11/24/2023 7:53:08 PM Prelim Date: 11/24/2023 7:56:07 PM Sign Date: 11/24/2023 7:56:07 PM Ordering Provider: YU [facility]08-12-2024 History and physical note Date of Service 11/24/2023 Chief Complaint Transfer from [facility] for coronary artery bypass grafting History of Present Illness This is a 68-year-old male with past medical history of seizures (last seizure 2011), multiple sclerosis, anxiety, depression, and iron deficiency anemia. He had presented to [facility] on 11/21/2023 as of left arm pain and retrosternal chest pain with exertion. His symptoms were associated with diaphoresis. He denied any syncope, PND, or orthopnea. He had negative troponins x 2. Transthoracic echocardiogram on 11/21/2023 revealed an EF of 70%. He underwent a stress test on 11/22/2023 which revealed possible ischemia in the LAD territory. Heart catheterization completed on 11/24/2019 for revealed a normal left main however revealed 95% stenosis of the mid LAD and 95% stenosis of the first diagonal coronary artery. Patient was transferred to [facility] for surgical revascularization. STS risk assessment for CABG: Procedure Type: Isolated CABG Perioperative Outcome Estimate % Operative Mortality 0.451% Morbidity & Mortality 2.71% Stroke 0.426% Renal Failure 0.304% Reoperation 1.64% Prolonged Ventilation 1.23% Deep Sternal Wound Infection 0.057% Long Hospital Stay (>14 days) 1.41% Short Hospital Stay (<6 days)* 71.7% Review of Systems Constitutional: Denies fever, chills, weight loss, weight gain HEENT: Has own teeth, wears glasses; denies any dysphagia Respiratory: See HPI CV: See HPI Vascular: Denies claudication, varicose veins, nonhealing ulcers GI: Denies nausea, vomiting, constipation, diarrhea : Denies dysuria, hematuria Neuro: Generalized weakness; seizures with last being in 2011; denies any tremors, memory loss Endo: Denies heat/cold tolerance, hair loss, polyuria Hemo-/oncology: Denies bleeding, bruising, lymphadenopathy Muscular/skeletal: Denies arthralgia, back pain, leg cramps Psych: Positive anxiety and depression; denies any suicidal ideations Physical Exam Vitals and Measurements T: 37 C (Oral) HR: 77 (Monitored) RR: 18 BP: 116/79 SpO2: 97% HT: 183 cm WT: 83.8 kg BMI: 25.02 Weight Dosing Weight: 83.8 kg (11/24/23) Constitutional: Alert, oriented x 4, appropriate HEENT: Normocephalic, atraumatic, dentition good, no carotid bruit, PERRLA +3 mm brisk bilaterally Lungs: Unlabored respirations, lung sounds clear bilaterally, SpO2 97% on room air Heart: Normal sinus rhythm, S1-S2, no murmur or rub, heart rate 77 Abdomen: Soft, nontender, bowel sounds present Extremities: Well-perfused, pedal pulses +1 bilaterally, no lower leg edema Integumentary: Erythema and warmth noted in left antecubital from IV site Neuro: Cranial nerves II through VIII intact Lab Results No 36 Hour Lab Data Assessment/Plan 1. CAD in mor[place] artery Heart catheterization completed at [facility] on 11/24/2023 revealed 95% stenosis of the mid LAD and 95% stenosis of the first diagonal coronary artery. On aspirin, metoprolol, atorvastatin Surgical workup will be ordered. Patient will be tentatively scheduled for coronary artery bypass grafting with Dr. Henry on 11/26/2023 2. Iron deficiency anemia Resume home iron supplement 3. Multiple sclerosis Patient follows with a neurologist at [facility] He ambulates with a cane Will continue home dimethyl fumarate 4. Anxiety and depression Resume home citalopram 5. 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 Iron deficiency anemia Multiple sclerosis Seizure disorder Procedure/Surgical History Splenectomy: 1968 Catheterization of left heart Medications Home Medications (10) Active acetaminophen 650 mg, PRN, Oral, q6hr aspirin 81 mg oral tablet, chewable 81 mg = 1 tab(s), Oral, Daily atorvastatin 80 mg oral tablet 80 mg = 1 tab(s), Oral, qHS citalopram 40 mg, Oral, qDay dimethyl fumarate 240 mg oral delayed release capsule 240 mg = 1 cap(s), Oral, BID enoxaparin 40 mg, Subcutaneous, qDay ferrous gluconate 324 mg (38 mg elemental iron) oral tablet 324 mg = 1 tab(s), Oral, BID metoprolol tartrate 25 mg oral tablet 25 mg = 1 tab(s), Oral, BID zonisamide 100 mg oral capsule 200 mg = 2 cap(s), Oral, Daily zonisamide 100 mg oral capsule 300 mg = 3 cap(s), Oral, qHS Allergies NKA Social History Alcohol Use: social. Frequency: 1-2 times per year., 11/24/2023 Substance Abuse Use: Never., 11/24/2023 Tobacco Nicotine Use: Former smoker, quit more than 30 days ago. Type: Cigarettes. Started at age: 16 Years. Stopped at age: 53 Years., 11/24/2023 Family History Cancer: Mother.Negative: Father, Sister, Brother, Daughter, Son and Grandparent. Heart attack: Negative: Father. Heart disease: Brother. Stroke: Father. Health Status Family Member(s) Immunizations No qualifying data available. Code Status Code Status - Ordered -- 11/24/23 19:04:00 EDT, Full Code, Constant Order This note was generated using a voice recognition system. As a result, errors are possible and common, including incorrect words, spellings, grammar, gender, phrases, and punctuation that may be out of context or that were missed in checking this note before saving. Reasonable effort is made to correct such errors, but with demands of normal work flow, many are missed. Digitally Signed by YU RECIO on 11/24/2023 07:18 PM [id number] [facility] Medical Records Department [address] [place] [address] Discharge Summary 11/24/23 1446 MR#: [id number] Acct: [id number] Name: JUANITA JAY Rep #: [id number] : 1955 68 From: Nacho Issa MD PCP: Dr. Wisam Monroe MD Status:ADM SHARONA Location: PCU [id number] Providers Date of Admission: 11/21/23 Primary Care Physician: Dr. Wisam Monroe MD Consultations 11/22/23 09:46 Consult: Cardiology Routine Consulting Provider: Merlin Mathias Reason for Consult: Abnormal stress EMERGENT Consult: No MD Notified: Yes Date Notified: 11/22/23 Time Notified: 09:46 Method of Notification: Verbal Reason For Visit: CHEST PAIN, ACS RULE OUT Diagnosis Discharge Diagnosis (1) Chest pain: Status: Acute Code(s): R07.9 - Chest pain, unspecified Qualifiers: Chest pain type: unspecified Qualified Code(s): R07.9 - Chest pain, unspecified Medications at Discharge Home Medications citalopram 40 mg tablet 40 mg PO DAILY depression 11/21/23 dimethyl fumarate 240 mg capsule,delayed release 240 mg PO BID ms 11/21/23 zonisamide 100 mg capsule 200 mg PO .am seizures 11/21/23 zonisamide 100 mg capsule 300 mg PO QHS seizures 11/21/23 aspirin 81 mg chewable tablet 81 mg PO BREAKFAST #0 tabs 11/24/23 atorvastatin 80 mg tablet 80 mg PO QHS #0 tabs 11/24/23 ferrous gluconate 324 mg (37.5 mg iron) tablet 324 mg PO BIDCM #0 tabs 11/24/23 Hospital Course Operations None Procedures Cardiac catheterization and Nuclear stress test Summary of Care Provided Minutes Spent on Discharge: 37 Hospital Course: Per HPI: JUANITA JAY, is a 68 M who presented to [facility] ED on 11/21/2023 with chest pain. Patient has history of MS diagnosed in 2018, follows with neurology at [facility]. Notes that his primary MS symptom is difficulty with balance but he otherwise has minimal symptoms due to his MS. He otherwise has minimal past medical history. Stated that he had an episode of chest pressure yesterday that occurred after waking up and walking down the steps in his [place]-level home. The pain subsided fairly quickly and he had no associated symptoms. Today, he had pain in the left chest along with left arm pain that was more severe and more persistent than yesterday, so he came in for further evaluation. He did report some nausea, diaphoresis and dyspnea with today's episode. In the ED, was noted to be hemodynamically stable on room air. EKG showed normal sinus rhythm, no ST changes. Troponins were negative x 2. Lab workup showed a mild anemia with hemoglobin 11.5, down from 14 back in 2021 (last known value), but was otherwise unremarkable. Chest x-ray was unremarkable. Given his concerning symptoms and no prior cardiac workup, hospitalist was contacted for admission. I saw patient at bedside in the ED. Patient was sitting up comfortably in bed, conversing normally, in no acute distress. He reported that the chest pain had completely subsided by this time. He denied any symptoms at this time. He was concerned by these episodes and unsure of what else could be causing the pain if not heart related. He denies any recent excessive physical activity or known muscle strains. Patient lives at home with his and has good functional status. No other acute concerns at this time. Hospital Course: 1. Chest pain???68-year-old male presented to the hospital with chest pressure that went down his left arm. Initially he had an episode on the day prior to admission which resolved fairly quickly but then on the day of admission he had recurrence of the chest pain that was more severe and more persistent. He underwent an echocardiogram that demonstrated an EF of 70% with no diastolic dysfunction, he then went a stress test that demonstrated ischemia involving the septum as well as the distal anterior wall and apex. He was scheduled for a heart cath today on 11/24/2023 that demonstrated 95% high-grade stenosis in the LAD in the mid segment. He was started on high-dose statin and aspirin. Cardiology felt that it would be best to transfer for evaluation of possible CABG. The case was discussed with cardiothoracic surgery at [facility] and they excepted patient for evaluation. He will be discharged today, this plans been discussed with the and the patient and they expressed understanding of the risk benefits of being transferred. 2. Iron deficiency anemia???hemoglobin on admission was 11.5 and iron studies demonstrated and iron deficiency anemia iron level of 27 and a TIBC of 437 and iron saturation of 6.2 with a ferritin of 14. He was given a dose of IV Venofer and then placed on oral iron replacement. 3. Multiple sclerosis, anxiety, depression are chronic which complicate his care. His home medications were continued where appropriate Physical Exam Narrative General: Vale (more content not included)...[facility]08-12-2024 Telephone encounter Note* Telephone Encounter - Elisha Anand LPN - 11/24/2023 2:04 PM EDT Received cardiology consult from [facility]. Placed in provider's inbox for review. Route to [facility] scanning [facility]08-12-20[facility] Miscellaneous Notes* Telephone Encounter - Elisha Anand LPN - 11/24/2023 2:04 PM EDT Received cardiology consult from [facility]. Placed in provider's inbox for review. Route to MA scanning documented in this encounterCity Hospital08-12-2024 Evaluation + Plan note Extracted from: Title:History and Physical Author:TORI RECIO EMPLOYMENT OFFICE CLERK-DIRECTOR OF PATIENT CARE Date:11/24/23 1. CAD in morongo artery Heart catheterization completed at [facility] on 11/24/2023 revealed 95% stenosis of the mid LAD and 95% stenosis of the first diagonal coronary artery. On aspirin, metoprolol, atorvastatin Surgical workup will be ordered. Patient will be tentatively scheduled for coronary artery bypass grafting with Dr. Henry on 11/26/2023 2. Iron deficiency anemia Resume home iron supplement 3. Multiple sclerosis Patient follows with a neurologist at [facility] He ambulates with a cane Will continue home dimethyl fumarate 4. Anxiety and depression Resume home citalopram 5. Seizure disorder Patient reports last seizure in 2011 Continue home zonisamide Will request diagnostic imaging from [facility] Addendum by JORDAN HENRY on November 25, 2023 11:39:29 EDT Date of consult 11/25/2023 Consulting cardiothoracic Surgeon: Jordan Henry MD, FACS Reason for consultation unstable angina with severe LAD diagonal disease referred for coronary bypass surgery I reviewed the cardiac catheterization, discussed the case with Dr. Bernal at [facility] and performed the history and physical examination and obtain consent for coronary bypass surgery. I spent 90 minutes on the consultation. The cardiac cath reveals a high-grade proximal LAD stenosis and high-grade proximal diagonal stenosis the diagonal and LAD appear to be good targets for bypass. Intend to use a radial artery to the diagonal and the WILLETT to the LAD I will approach the case with off-pump coronary bypass technology. Preoperative testing is currently pending regarding echo, carotid ultrasound, left arm duplex ultrasound and vein mapping. I reviewed the risks benefits and alternatives of coronary bypass surgery with the patient. Also discussed the PCI option which I do not recommend. I would consider the surgery low risk. The plan is to proceed with surgery tomorrow morning on 11/26/2023 at [facility]. The patient had been referred to me at [facility] in [facility] and I brought the patient to [facility] for surgery based upon scheduling. [facility] 07-18-2024 Telephone encounter Note* Telephone Encounter - Tino Perales - 10/30/2023 8:36 AM EDTSummary: appointment lvm for patient to call so we can get him scheduled for a followup with tello slaughter [facility]07-18-2024 Miscellaneous Notes* Telephone Encounter - Tino Perales - 10/30/2023 8:36 AM EDTSummary: appointment lvm for patient to call so we can get him scheduled for a followup with tello slaughter documented in this encounterCity Hospital07-10-2024 Telephone encounter Note * Telephone Encounter - Tino Perales - 10/22/2023 12:31 PM EDTSummary: appointment lvm for patient to call so we can get him scheduled for a follow up [facility]07-10-2024 Miscellaneous Notes* Telephone Encounter - Tino Perales - 10/22/2023 12:31 PM EDTSummary: appointment lvm for patient to call so we can get him scheduled for a follow up documented in this encounterCity Hospital06-27-2024 History of Present illness Narrative* Chayo Yao MA - 10/09/2023 12:30 PM EDT POPULATION HEALTH NAVIGATION OUTREACH Action/FYI spoke to Mr Jay he sees Dr Laverne Monroe pcp field updated Reason for Outreach Care Gap/HCC or Scheduling Wellness Visits Care Gaps due: Patient Contacted: Spoke to patient/parent/or legal guardian Patient identified by name and : Yes Care Gap/HCC/Scheduling Wellness actions taken: PCP confirmed PCP field updated Navigation Signature: Chayo Yao MA October 09, 2023 12:30 PM documented in this encounterCity Hospital2024 History of Present illness Narrative* Sara Barnett RT(Livan) - 08/05/2023 10:00 AM EDT Radiology Service Progress Note DATE OF SERVICE: August 05, 2023 TIME: 10:06 AM PATIENT IDENTITY VERIFICATION COMPLETED USING TWO (2) STANDARD IDENTIFIERS: Name and Date of confirmed by patient verbally. FALL SCREENING: Has the patient had 2 falls in the last year or 1 fall with injury or currently using an Ambulatory Assistive Device (Walker, Cane, Wheelchair, Crutches, etc.)? Yes, Patient High Riskfor Falls What interventions were put in place to prevent falls during this visit? Instructed Patient to Callfor Help if Needed, Offered Assistance with Transfers/Clothing, Instructed Patient to Remain Seated(Not on Exam Table) Until Exam, and Increased Observations by Caregivers PATIENT GENDER DATA: Male PATIENT RELEVANT IMPLANT DATA REVIEWED: Yes PATIENT PRESENTS WITH AN IMPLANTABLE OR ATTACHED ACCOUNTS PAYABLE SPECIALIST: No ALLERGIES: Reviewed and unchanged CONTRAST ALLERGY: NO. EXAM: MRI - CONTRAST TYPE: GROUP II PERIPHERAL IV DATA: Ambulatory: A peripheral IV was started in the Left upper extremity with a Angio cath: 22 gauge. RADIOLOGY DEPARTMENT: MR; Exam(s) Completed: Head: Multiple Sclerosis SIGNATURE: Sara Barnett, RT(R) PATIENT NAME: Juanita Jay DATE: August 05, 2023 TIME: 10:06 AM documented in this encounterCity Hospital04-18-2024 Miscellaneous Notes* Telephone Encounter - Sun Clark APRN.CNP - 07/31/2023 4:00 PM EDT The following approved medication requests have been transmitted electronically. Requested Prescriptions Signed Prescriptions Disp Refills tiZANidine (ZANAFLEX) 2 mg tablet 90 tablet 0 Sig: TAKE 1 TABLET BY MOUTH EVERYDAY AT BEDTIME Authorizing Provider: SUN CLARK APRN.DIRECTOR OF PATIENT CARE * Telephone Encounter - Sophia Schuster - 07/31/2023 1:21 PM EDT Patient requesting 90 day supply. Source : electronic from pharmacy requesting refill. Delivery : e-script Requested Prescriptions Pending Prescriptions Disp Refills tiZANidine (ZANAFLEX) 2 mg tablet [Pharmacy Med Name: TIZANIDINE HCL 2 MG TABLET] 90 tablet 0 Sig: TAKE 1 TABLET BY MOUTH EVERYDAY AT BEDTIME DX : Patient last seen: 07/09/2022 Next Appointment : None Sophia Johnson documented in this encounterCity Hospital04-11-2024 Miscellaneous Notes* Telephone Encounter - Tino Perales - 07/24/2023 12:43 PM EDTSummary: appointment tired calling patient to get him scheduled for a follow up but the number did not work so sent mychart documented in this encounterCity Hospital03-26-2024 Miscellaneous Notes* Telephone Encounter - Tello Slaughter PA-C - 07/08/2023 12:06 PM EDT The following approved medication requests have been transmitted electronically. Requested Prescriptions Signed Prescriptions Disp Refills tiZANidine (ZANAFLEX) 2 mg tablet 30 tablet 2 Sig: Take 1 tablet by mouth daily at bedtime. Tello Slaughter PA-C documented in this encounterCity Hospital03-22-2024 Instructions* Patient Instructions* Autumn Florian PA-C - 07/04/2023 11:02 AM EDT You may walk into any [facility] without an appointment to have your blood work completed. You do not have to fast. Please have your Zonisamide level drawn in the morning BEFORE you take your AM dose of Zonisamide, or at least 8 hours AFTER you take your AM dose of Zonisamide. documented in this encounterCity Hospital03-22-2024 History of Present illness Narrative* Autumn Florian PA-C - 07/04/2023 8:07 AM EDT [facility] Patient Name: Juanita Jay Date of : 1955 ESTABLISHED EPILEPSY CLINIC NOTE July 04, 2023 8:06 AM HISTORY OF PRESENT ILLNESS: The patient is a right handed male with MS (diagnosed in 2012) who has been diagnosed with having seizures. The first seizure (May 2011) occurred watching TV, and 2nd one a few a few days after the first one, the third one occurred in the middle of Zonegran initiation. Since he had been on Msbsipae050 mg bid, he had another seizure while watching TV 03/13/2012, subsequently, Zonegran increased to 500 mg per day. He has no further seizure. He has been on Zonegran 200mg/300 mg since 03/2012. There are no complaints of side effects related to medications. The last seizure was on 02/15/2012. At follow up visit on 04/03/2022: on Zonisamde 200mg/300mg No seizures The last seizure was 2011. His MS is table, slow worsening gait, need a cane He drives with his in the car, most time his drive At follow up visit on 03/29/2021: Continue Zonegran 200mg/300 mg unchanged (no side effects) No seizures Good compliance with medications that are taken around 7:30a/8p. Mood is good with celexa. Sleep isgood. Does not use alcohol, tobacco, or illicit drugs. No new medical conditions, ER visits, or newmedications. 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 Currently lives with . His MS is stable- issueswith balance but he is managing well. At office visit on 01/19/2020: no seizures. The last seizure was on 02/15/2012. He has continued Zoniamide 200 mg and 300 mg evening No side effects to Zoniasmide He is here for refill of AED His MS has progressed slowly, he now has unsteady gait while walking At office visit on 07/04/2023: He has remained seizure free since 2011. He continues taking ZNS 200/300. No reported side effects.Takes meds at 730 AM and his evening doses right before bed which can vary day-to-day. He is now using a cane for his MS. Says he continues to have some gait instability but no reported falls within the last year and he is closely followed for his MS by the [facility]. Sleeping well- feeling rested upon awakening. Mood has been stable. Currently driving. Retired. 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 Of note, 2 weeks after taking Tegretol, he developed groin rash. He was then switched to Zonisamide. The rash was eventually thought to be shingles. 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 Infections (-) Developmental Delay (-) Family history of epilepsy (-) Febrile Seizure (-) Complications (-) Stroke (-) Traumatic Brain Injury CURRENT OUTPATIENT ANTISEIZURE MEDICATIONS (as of the start of the encounter) zonisamide (ZONEGRAN) 100 mg capsule Take 200 mg am and 300 mg pm Prior Anti-seizure Therapies: Trial Adequacy: Max Daily Dose Achieved: Side Effects: Effectiveness: Comments: Carbamazepine Levetiracetam Psychiatric Zonisamide Patient Entered Data: EPILEPSY SCORE 06/30/2023 8:09 PM 06/30/2023 7:58 PM 03/31/2022 7:30 PM First answer obtained - 01/18/2020 11:10 AM PHQ-9 SCORE 4 [None-Minimal Depression] - 2 [None-Minimal Depression] - YOLANDA 2 SCORE 2 [Negative Anxiety Screen] - 1 [Negative Anxiety Screen] - YOLANDA 7 SCORE - - - - QOLIE-10 SCORE (0=worst; 100=best QoL - higher scores represent better function) 17 - 17 - LSSS SCORE (0- no seizures 100- most severe possible seizures) - - - - C-SSRS SCREEN - - - - On average, how many hours of sleep do you get in a 24-hour period? 11 - - PROMIS Sleep Disturbance T-SCORE - 46 [within normal limits] - 41 [within normal limits] Have you been diagnosed with Sleep Apnea? No - No - Seizure risk factors: Brain Tumor No ORTHOTIC TECHNICIAN Infections No Developmental Delay No Family history of seizures No Febrile Seizure Unanswered Complications No Stroke No Traumatic Brain Injury No Other caregivers: Primary Care Provider: Laverne Monroe MD Current Outpatient Medications Medication Sig zonisamide (ZONEGRAN) 100 mg capsule Take 200 mg am and 300 mg pm dimethyl fumarate (TECFIDERA) [address] take 1 capsule by mouth 2 times a day citalopram (CELEXA) 40 mg tablet Take 1 tablet by mouth once daily. baclofen (LIORESAL) 10 mg tablet TAKE 1 TABLET BY MOUTH EVERYDAY AT BEDTIME ASPIRIN ORAL Take by mouth. For body aches sildenafil (REVATIO) 20 mg tablet 1-2 TABS NEEDED 30-60 MINUTES PRIOR TO SEXUAL INTERCOURSE cephALEXin (KEFLEX) 500 mg capsule Take 1 capsule by mouth twice daily. ergocalciferol 50,000 unit capsule (VITAMIN D2, DRISDOL) Take 1 capsule by mouth one time a week. aspirin, enteric coated (ADULT LOW DOSE ASPIRIN) 81 mg EC tablet Take 1 tablet by mouth once daily.(Patient taking differently: Take 81 mg by mouth as needed.) naproxen sodium(ALEVE 220 MG TAB) as needed multivitamins w-minerals/lut(CENTRUM SILVER TAB) Take one daily No current facility-administered medications for this visit. ALLERGIES Allergen Reactions Carbamazepine Rash, Other: See Comments Acute urinary retention PAST MEDICAL HISTORY Diagnosis Date Leptospirosis ~1991 MS (multiple sclerosis) (HCC) 2006 Seizures (HCC) PAST SURGICAL HISTORY Procedure Laterality Date PARTIAL SPLENECTOMY PAST SURGICAL HISTORY OF 1972 Splenectomy [place] [facility] post trauma FAMILY HISTORY Problem Relation Age of Onset Stroke Father Cancer Mother Bone VITAL SIGNS: BP 114/59 (BP Site: Left Arm, BP Position: Sitting, BP Cuff Size: Large Adult) Pulse 72 Resp 18 Ht 182.9 cm (6') Wt 90.7 kg (200 lb) SpO2 97% BMI 27.12 kg/m NEUROLOGICAL EXAM: The patient's speech, affect, and cognition appear normal. Normal eye movements. No nystagmus noted. No facial asymmetry,hearing intact. Muscle Bulk are normal. 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 Will continue Zonegran 200 mg/300 mg(increased from 200 mg bid since beginning of Mar 2012). No further seizures and the last seizure was 2011. 07/04/2023: Patient remains seizure free since 2011. No reported side effects and reports good compliance. Will have updated ASM level completed. Refills sent. No further questions or concerns today. PLAN: - Continue Zonegran 200mg/300 mg. Refilled for a year - Labs: CBC, CMP, ZNS level - Follow up in one year or sooner as needed I spent a total of 20 minutes on the date of the service which included preparing to see the patient, [id number] patient care, completing clinical documentation, obtaining and/or reviewing separately obtained history, performing a medically appropriate examination, counseling and educating the pat ient/family/caregiver, and ordering medications, tests, or procedures. Autumn Florian PA-C 07/04/2023 documented in this encounterCity Hospital03-19-2024 History of Present illness Narrative* Chayo Yao MA - 07/01/2023 10:07 AM EDT POPULATION HEALTH NAVIGATION OUTREACH Action/FYI left message to call me back to discuss pcp or schedule my chart message sent Reason for Outreach Care Gap/HCC or Scheduling Wellness Visits Care Gaps due: Establish Care Appointment Patient Contacted: Unable or unnecessary to reach patient: Left message MyChart message sent Navigation Signature: Chayo Yao MA July 01, 2023 10:07 AM documented in this encounterCity Hospital11-07-2023 Miscellaneous Notes* Telephone Encounter - Tello Slaughter PA-C - 02/18/2023 9:09 AM EST The following approved medication requests have been transmitted electronically. Requested Prescriptions Signed Prescriptions Disp Refills dimethyl fumarate (TECFIDERA) [address] 180 capsule 3 Sig: take 1 capsule by mouth 2 times a day Authorizing Provider: TELLO SLAUGHTER PA-C * Telephone Encounter - Iva Warren HUC - 02/18/2023 8:43 AM EST Source : electronic from pharmacy requesting refill. Delivery : e-script Requested Prescriptions Pending Prescriptions Disp Refills dimethyl fumarate (TECFIDERA) [address] [Pharmacy Med Name: DIMETHYL FUMARATE DR 240MG] 180capsule 3 Sig: take 1 capsule by mouth 2 times a day DX : Patient last seen 07/09/2022 Next Appointment : MELLY Guidry documented in this encounterCity Hospital11-04-2023 Hospital Discharge instructions* Discharge Instructions* Khoa Goldberg MD - 02/15/2023 4:34 PM EDT You have 7 sutures placed in your upper eyebrow laceration. These are absorbable. Your small laceration was glued. Please watch for signs of infection such as increased redness pus drainage or fever. He can use Tylenol for pain. Please place ice for the next 2 days to cut down swelling. * Attachments The following attachments cannot be sent through Care Everywhere. * Concussion Discharge Instructions, Adult ([place]) * Laceration Repair With Stitches ED ([place]) * Laceration Repair With Glue Discharge Instructions ([place]) documented in this [facility]11-04-2023 Emergency department Note* Khoa Goldberg MD - 02/15/2023 3:24 PM EDTAssociated Order(s): Laceration Repair; Laceration Repair EMERGENCY DEPARTMENT ENCOUNTER Pt Name: Juanita Jay Birthdate 1955 Date of evaluation: 02/15/2023 ED Provider: Khoa Goldberg MD CHIEF COMPLAINT Chief Complaint Patient presents with Facial Laceration Left eyebrow HISTORY OF PRESENT ILLNESS (Location/Symptom, Timing/Onset, Context/Setting, Quality, Duration, Modifying Factors, Severity) Note limiting factors. I wore appropriate PPE for the entirety of this encounter. HPI Juanita Jay is a 67 y.o. who presents to the emergency department with chief complaint of patientwith a history of multiple sclerosis not on anticoagulation was walking downtown when he tripped aron curb and fell forward try to catch himself but does have an abrasion laceration to his left supraorbital area and abrasion to his left knee. He had no loss of consciousness. No focal neurologic symptoms no nausea vomiting diarrhea. No neck back chest abdomen or pelvic pain. States his tetanus is up-to-date. Nursing Notes were reviewed. Limitations to history: None Outside historians: Significant other REVIEW OF SYSTEMS Review of Systems Constitutional: Negative for chills and fever. HENT: Negative for ear pain and sore throat. Eyes: Negative for pain and visual disturbance. Respiratory: Negative for cough and shortness of breath. Cardiovascular: Negative for chest pain and palpitations. Gastrointestinal: Negative for abdominal pain and vomiting. Genitourinary: Negative for dysuria and hematuria. Musculoskeletal: Positive for myalgias. Negative for arthralgias, back pain and gait problem. Skin: Positive for wound. Negative for color change and rash. Neurological: Negative for seizures and syncope. All other systems reviewed and are negative. Pertinent positives and negatives as per HPI. PAST MEDICAL HISTORY Past Medical History: Diagnosis Date MS (multiple sclerosis) ([facility]) SURGICAL HISTORY History reviewed. No pertinent surgical history. CURRENT MEDICATIONS Previous Medications No medications on file ALLERGIES Patient has no known allergies. FAMILY HISTORY No family history on file. SOCIAL HISTORY Social History Socioeconomic History Marital status: Tobacco Use Smoking status: Former Types: Cigarettes Smokeless tobacco: Never Substance and Sexual Activity Alcohol use: Yes Comment: rarely socially Drug use: Never SCREENINGS PHYSICAL EXAM ED Triage Vitals [02/15/23 1535] Temp Heart Rate Resp BP 36.7 C (98.1 F) 96 18 (!) 148/88 SpO2 Temp Source Heart Rate Source Patient Position 97 % Oral Monitor Sitting BP Location FiO2 (%) Right arm -- Physical Exam Vitals and nursing note reviewed. Constitutional: Appearance: Normal appearance. HENT: Head: Normocephalic and atraumatic. Nose: Nose normal. No rhinorrhea. Mouth/Throat: Mouth: Mucous membranes are moist. Pharynx: No posterior oropharyngeal erythema. Eyes: General: Right eye: No discharge. Left eye: No discharge. Extraocular Movements: Extraocular movements intact. Conjunctiva/sclera: Conjunctivae normal. Pupils: Pupils are equal, round, and reactive to light. Cardiovascular: Rate and Rhythm: Normal rate. Heart sounds: No murmur heard. Pulmonary: Effort: No respiratory distress. Breath sounds: Normal breath sounds. No wheezing. Abdominal: General: Abdomen is flat. Palpations: Abdomen is soft. Tenderness: There is no abdominal tenderness. There is no rebound. Musculoskeletal: General: Normal range of motion. Cervical back: Normal range of motion and neck supple. Right lower leg: No edema. Left lower leg: No edema. Skin: General: Skin is warm and dry. Capillary Refill: Capillary refill takes less than 2 seconds. Findings: No rash. Comments: There is a rugged 2.8 cm laceration in the left eyebrow. There is no orbital fat. Does not involve the lid margin. Pupils equal round react light neck segments are intact Neurological: General: No focal deficit present. Mental Status: He is alert and oriented to person, place, and time. Cranial Nerves: No cranial nerve deficit. Sensory: No sensory deficit. Motor: No weakness. Gait: Gait normal. Psychiatric: Mood and Affect: Mood normal. Behavior: Behavior normal. DIAGNOSTIC RESULTS Procedures/EKG: EKG was reviewed by myself. [facility] RADIOLOGY (Per Emergency Physician): Interpretation per the Radiologist below, if available at the time of this note: No orders to display ED BEDSIDE ULTRASOUND: Performed by ED Physician - none LABS: Labs Reviewed - No data to display All other labs were within normal range or not returned as of this dictation. EMERGENCY DEPARTMENT COURSE and DIFFERENTIAL DIAGNOSIS/MDM: Vitals: Vitals: 02/15/23 1535 BP: (!) 148/88 BP Location: Right arm Patient Position: Sitting Pulse: 96 Resp: 18 Temp: 36.7 C (98.1 F) TempSrc: Oral SpO2: 97% Weight: 90.7 kg (200 lb) Height: 1.829 m (6') The patient presented with chief complaint of patient tripped and fell has a laceration above his left eye and abrasions to his knees. No loss of consciousness no focal neurologic complaints. The differential diagnosis associated with this patient's presentation includes laceration or abrasion. Also closed head injury is not on anticoagulation but does have multiple sclerosis. Our workup consisted of ordering/reviewing: Physical exam. Diagnostic tests considered but not performed: CT scan of the head although I do not feel that is necessary did not have loss of consciousness is able to ambulate has no focal neurologic complaints I also reviewed external records from Outpatient labs and studies past medical history for her regarding his multiple sclerosis. The patient will be Discharged. Patient is in agreement with this plan. Patient's care was impacted by multiple sclerosis. Medications lidocaine (Xylocaine) 1 % injection 10 mL (10 mL Infiltration Given 02/15/23 1555) REVAL: Patient is alert and orient x4. No evidence of head trauma. Repaired both lacerations that were in his left eyebrow there is a 2.8 cm that I put 7 absorbable sutures did not. There is a 0.8 cm which I glued. Placed antibiotic dressing gave him instructions CRITICAL CARE TIME None CONSULTS: None PROCEDURES: Unless otherwise noted below, none Laceration Repair Performed by: Khoa Goldberg MD Authorized by: Khoa Goldberg MD Consent: Consent obtained: Verbal Consent given by: Patient Risks discussed: Poor cosmetic result, poor wound healing, pain and infection [place] protocol: Procedure explained and questions answered to patient or proxy's satisfaction: yes Patient identity confirmed: Verbally with patient Anesthesia: Anesthesia method: Local infiltration Local anesthetic: Lidocaine 1% w/o epi Laceration details: Location: Face Face location: L upper eyelid Length (cm): 2.8 Pre-procedure details: Preparation: Patient was prepped and draped in usual sterile fashion Exploration: Limited defect created (wound extended): no Hemostasis achieved with: Direct pressure Wound exploration: wound explored through full range of motion and entire depth of wound visualized Wound extent: no foreign bodies/material noted, no nerve damage noted, no tendon damage noted, no underlying fracture noted and no vascular damage noted Contaminated: no Treatment: Area cleansed with: Chlorhexidine Amount of cleaning: Standard Irrigation solution: Sterile saline Irrigation volume: 60 Irrigation method: Pressure wash Visualized foreign bodies/material removed: no Debridement: None Skin repair: Repair method: Sutures Suture size: 5-0 Suture material: Fast-absorbing gut Suture technique: Simple interrupted Number of sutures: 7 Approximation: Approximation: Close Repair type: Repair type: Simple Post-procedure details: Dressing: Antibiotic ointment Procedure completion: Tolerated well, no immediate complications Laceration Repair Performed by: Khoa Goldberg MD Authorized by: Khoa Goldberg MD Consent: Consent obtained: Verbal Risks discussed: Infection, poor cosmetic result and poor wound healing Alternatives discussed: Delayed treatment [place] protocol: Procedure explained and questions answered to patient or proxy's satisfaction: yes Patient identity confirmed: Verbally with patient Laceration details: Location: Face Face location: L upper eyelid Length (cm): 0.8 Pre-procedure details: Preparation: Patient was prepped and draped in usual sterile fashion Exploration: Contaminated: no Treatment: Area cleansed with: Chlorhexidine Irrigation solution: Sterile saline Irrigation volume: 30 Irrigation method: Pressure wash Visualized foreign bodies/material removed: no Debridement: None Skin repair: Repair method: Tissue adhesive Approximation: Approximation: Close Repair type: Repair type: Simple Post-procedure details: Procedure completion: Tolerated well, no immediate complications Patients symptoms are consistent with sepsis, severe sepsis, or septic shock (If yes use ".sepsiscoremeasure"): no FINAL IMPRESSION No diagnosis found. DISPOSITION PATIENT REFERRED TO: No follow-up provider specified. DISCHARGE MEDICATIONS: New Prescriptions No medications on file (Comment: Please note this report has been produced using speech recognition software and may contain errors related to that system including errors in grammar, punctuation, and spelling, as well as words and phrases that may be inappropriate. If there are any questions or concerns please feel freeto contact the dictating provider for clarification.) Khoa Goldberg MD (electronically signed) Emergency Medicine Provider Khoa Goldberg MD 02/15/231915 * Yamel Diaz RN - 02/15/2023 3:24 PM EDT Patient is here for laceration above left eye. Injury occurred 1 hour prior to arrival when he tripped over a curb. Abrasion noted to left knee. He denies LOC. He ambulates with a cane. He is here today with his [place]. He has headache 1/10 pain. He is not on blood thinners. He is requesting sutures. Call light within reach. A&O x3. documented in this [facility]11-04-2023 Emergency department Triage note* Yamel Diaz RN - 02/15/2023 3:24 PM EDT Patient is here for laceration above left eye. Injury occurred 1 hour prior to arrival when he tripped over a curb. Abrasion noted to left knee. He denies LOC. He ambulates with a cane. He is here today with his [place]. He has headache 1/10 pain. He is not on blood thinners. He is requesting sutures. Call light within reach. A&O x3. [id number] Emergency department Note* Khoa Goldberg MD - 02/15/2023 3:24 PM EDTAssociated Order(s): Laceration Repair; Laceration Repair EMERGENCY DEPARTMENT ENCOUNTER Pt Name: Juanita Jay Birthdate 1955 Date of evaluation: 02/15/2023 ED Provider: Khoa Goldberg MD CHIEF COMPLAINT Chief Complaint Patient presents with Facial Laceration Left eyebrow HISTORY OF PRESENT ILLNESS (Location/Symptom, Timing/Onset, Context/Setting, Quality, Duration, Modifying Factors, Severity) Note limiting factors. I wore appropriate PPE for the entirety of this encounter. HPI Juanita Jay is a 67 y.o. who presents to the emergency department with chief complaint of patientwith a history of multiple sclerosis not on anticoagulation was walking downtown when he tripped aron curb and fell forward try to catch himself but does have an abrasion laceration to his left supraorbital area and abrasion to his left knee. He had no loss of consciousness. No focal neurologic symptoms no nausea vomiting diarrhea. No neck back chest abdomen or pelvic pain. States his tetanus is up-to-date. Nursing Notes were reviewed. Limitations to history: None Outside historians: Significant other REVIEW OF SYSTEMS Review of Systems Constitutional: Negative for chills and fever. HENT: Negative for ear pain and sore throat. Eyes: Negative for pain and visual disturbance. Respiratory: Negative for cough and shortness of breath. Cardiovascular: Negative for chest pain and palpitations. Gastrointestinal: Negative for abdominal pain and vomiting. Genitourinary: Negative for dysuria and hematuria. Musculoskeletal: Positive for myalgias. Negative for arthralgias, back pain and gait problem. Skin: Positive for wound. Negative for color change and rash. Neurological: Negative for seizures and syncope. All other systems reviewed and are negative. Pertinent positives and negatives as per HPI. PAST MEDICAL HISTORY Past Medical History: Diagnosis Date MS (multiple sclerosis) ([facility]) SURGICAL HISTORY History reviewed. No pertinent surgical history. CURRENT MEDICATIONS Previous Medications No medications on file ALLERGIES Patient has no known allergies. FAMILY HISTORY No family history on file. SOCIAL HISTORY Social History Socioeconomic History Marital status: Tobacco Use Smoking status: Former Types: Cigarettes Smokeless tobacco: Never Substance and Sexual Activity Alcohol use: Yes Comment: rarely socially Drug use: Never SCREENINGS PHYSICAL EXAM ED Triage Vitals [02/15/23 1535] Temp Heart Rate Resp BP 36.7 C (98.1 F) 96 18 (!) 148/88 SpO2 Temp Source Heart Rate Source Patient Position 97 % Oral Monitor Sitting BP Location FiO2 (%) Right arm -- Physical Exam Vitals and nursing note reviewed. Constitutional: Appearance: Normal appearance. HENT: Head: Normocephalic and atraumatic. Nose: Nose normal. No rhinorrhea. Mouth/Throat: Mouth: Mucous membranes are moist. Pharynx: No posterior oropharyngeal erythema. Eyes: General: Right eye: No discharge. Left eye: No discharge. Extraocular Movements: Extraocular movements intact. Conjunctiva/sclera: Conjunctivae normal. Pupils: Pupils are equal, round, and reactive to light. Cardiovascular: Rate and Rhythm: Normal rate. Heart sounds: No murmur heard. Pulmonary: Effort: No respiratory distress. Breath sounds: Normal breath sounds. No wheezing. Abdominal: General: Abdomen is flat. Palpations: Abdomen is soft. Tenderness: There is no abdominal tenderness. There is no rebound. Musculoskeletal: General: Normal range of motion. Cervical back: Normal range of motion and neck supple. Right lower leg: No edema. Left lower leg: No edema. Skin: General: Skin is warm and dry. Capillary Refill: Capillary refill takes less than 2 seconds. Findings: No rash. Comments: There is a rugged 2.8 cm laceration in the left eyebrow. There is no orbital fat. Does not involve the lid margin. Pupils equal round react light neck segments are intact Neurological: General: No focal deficit present. Mental Status: He is alert and oriented to person, place, and time. Cranial Nerves: No cranial nerve deficit. Sensory: No sensory deficit. Motor: No weakness. Gait: Gait normal. Psychiatric: Mood and Affect: Mood normal. Behavior: Behavior normal. DIAGNOSTIC RESULTS Procedures/EKG: EKG was reviewed by myself. Physician EKG interpretation can be found in [facility] RADIOLOGY (Per Emergency Physician): Interpretation per the Radiologist below, if available at the time of this note: No orders to display ED BEDSIDE ULTRASOUND: Performed by ED Physician - none LABS: Labs Reviewed - No data to display All other labs were within normal range or not returned as of this dictation. EMERGENCY DEPARTMENT COURSE and DIFFERENTIAL DIAGNOSIS/MDM: Vitals: Vitals: 02/15/23 1535 BP: (!) 148/88 BP Location: Right arm Patient Position: Sitting Pulse: 96 Resp: 18 Temp: 36.7 C (98.1 F) TempSrc: Oral SpO2: 97% Weight: 90.7 kg (200 lb) Height: 1.829 m (6') The patient presented with chief complaint of patient tripped and fell has a laceration above his left eye and abrasions to his knees. No loss of consciousness no focal neurologic complaints. The differential diagnosis associated with this patient's presentation includes laceration or abrasion. Also closed head injury is not on anticoagulation but does have multiple sclerosis. Our workup consisted of ordering/reviewing: Physical exam. Diagnostic tests considered but not performed: CT scan of the head although I do not feel that is necessary did not have loss of consciousness is able to ambulate has no focal neurologic complaints I also reviewed external records from Outpatient labs and studies past medical history for her regarding his multiple sclerosis. The patient will be Discharged. Patient is in agreement with this plan. Patient's care was impacted by multiple sclerosis. Medications lidocaine (Xylocaine) 1 % injection 10 mL (10 mL Infiltration Given 02/15/23 8685) REVAL: Patient is alert and orient x4. No evidence of head trauma. Repaired both lacerations that were in his left eyebrow there is a 2.8 cm that I put 7 absorbable sutures did not. There is a 0.8 cm which I glued. Placed antibiotic dressing gave him instructions CRITICAL CARE TIME None CONSULTS: None PROCEDURES: Unless otherwise noted below, none Laceration Repair Performed by: Khoa Goldberg MD Authorized by: Khoa Goldberg MD Consent: Consent obtained: Verbal Consent given by: Patient Risks discussed: Poor cosmetic result, poor wound healing, pain and infection [place] protocol: Procedure explained and questions answered to patient or proxy's satisfaction: yes Patient identity confirmed: Verbally with patient Anesthesia: Anesthesia method: Local infiltration Local anesthetic: Lidocaine 1% w/o epi Laceration details: Location: Face Face location: L upper eyelid Length (cm): 2.8 Pre-procedure details: Preparation: Patient was prepped and draped in usual sterile fashion Exploration: Limited defect created (wound extended): no Hemostasis achieved with: Direct pressure Wound exploration: wound explored through full range of motion and entire depth of wound visualized Wound extent: no foreign bodies/material noted, no nerve damage noted, no tendon damage noted, no underlying fracture noted and no vascular damage noted Contaminated: no Treatment: Area cleansed with: Chlorhexidine Amount of cleaning: Standard Irrigation solution: Sterile saline Irrigation volume: 60 Irrigation method: Pressure wash Visualized foreign bodies/material removed: no Debridement: None Skin repair: Repair method: Sutures Suture size: 5-0 Suture material: Fast-absorbing gut Suture technique: Simple interrupted Number of sutures: 7 Approximation: Approximation: Close Repair type: Repair type: Simple Post-procedure details: Dressing: Antibiotic ointment Procedure completion: Tolerated well, no immediate complications Laceration Repair Performed by: Khoa Goldberg MD Authorized by: Khoa Goldberg MD Consent: Consent obtained: Verbal Risks discussed: Infection, poor cosmetic result and poor wound healing Alternatives discussed: Delayed treatment [place] protocol: Procedure explained and questions answered to patient or proxy's satisfaction: yes Patient identity confirmed: Verbally with patient Laceration details: Location: Face Face location: L upper eyelid Length (cm): 0.8 Pre-procedure details: Preparation: Patient was prepped and draped in usual sterile fashion Exploration: Contaminated: no Treatment: Area cleansed with: Chlorhexidine Irrigation solution: Sterile saline Irrigation volume: 30 Irrigation method: Pressure wash Visualized foreign bodies/material removed: no Debridement: None Skin repair: Repair method: Tissue adhesive Approximation: Approximation: Close Repair type: Repair type: Simple Post-procedure details: Procedure completion: Tolerated well, no immediate complications Patients symptoms are consistent with sepsis, severe sepsis, or septic shock (If yes use ".sepsiscoremeasure"): no FINAL IMPRESSION No diagnosis found. DISPOSITION PATIENT REFERRED TO: No follow-up provider specified. DISCHARGE MEDICATIONS: New Prescriptions No medications on file (Comment: Please note this report has been produced using speech recognition software and may contain errors related to that system including errors in grammar, punctuation, and spelling, as well as words and phrases that may be inappropriate. If there are any questions or concerns please feel freeto contact the dictating provider for clarification.) Khoa Goldberg MD (electronically signed) Emergency Medicine Provider Khoa Goldberg MD 02/15/231915 [id number] Miscellaneous Notes* Telephone Encounter - Kerry Garza APRN.DIRECTOR OF PATIENT CARE - 12/02/2022 3:26 PM EDT Reviewed medication monitoring labs. ALT Date Value Ref Range Status 01/08/2022 13 10 - 54 U/L Final AST Date Value Ref Range Status 01/08/2022 22 14 - 40 U/L Final Comment: Results may be falsely increased due to interference from hemolysis. Suggest reorder as clinically indicated. WBC Date Value Ref Range Status 01/08/2022 9.55 3.70 - 11.00 k/uL Final Abs Lymph Date Value Ref Range Status 01/08/2022 1.30 1.00 - 4.00 k/uL Final The following approved medication requests have been transmitted electronically. Requested Prescriptions Signed Prescriptions Disp Refills dimethyl fumarate (TECFIDERA) [address] 180 capsule 0 Sig: TAKE 1 CAPSULE BY MOUTH 2 TIMES A DAY Authorizing Provider: KERRY GARZA APRN.DIRECTOR OF PATIENT CARE * Telephone Encounter - Sophia Schuster - 12/02/2022 10:29 AM EDT Source : electronic from pharmacy requesting refill. Delivery : e-script Requested Prescriptions Pending Prescriptions Disp Refills dimethyl fumarate (TECFIDERA) [address] [Pharmacy Med Name: DIMETHYL FUMARATE DR 240MG] 180capsule 3 Sig: TAKE 1 CAPSULE BY MOUTH 2 TIMES A DAY DX : Patient last seen: 07/09/2022 Next Appointment : None Sophia Johnson [facility] Miscellaneous Notes* Telephone Encounter - Daisha Jones RN - 08/05/2022 4:49 PM EDT Left VM to follow up, please call us with any further issues, and to schedule a follow up appt. (Provided the scheduling #). Daisha Jones RN * Telephone Encounter - Ashley Benitez RN - 07/22/2022 1:22 PM EDT Left a message on both home and mobile numbers requesting patient call the office to provide an update. Eli Ramirez RN * Telephone Encounter - Serene Lanier RN - 07/16/2022 9:09 AM EDT Called pt, left voicemail. 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 He was given a cream that is helping the rash. He was told it was not from Tecfidera or Citalopram. Serene Lanier RN * Telephone Encounter - Serene Lanier RN - 07/11/2022 1:53 PM EDT Called pt, left voicemail. Serene Lanier RN * Telephone Encounter - Raymon Simon MD, PhD - 07/11/2022 12:32 PM EDT [facility] dermatoloigst diagnosed a drug rash. He has been on Zonismide since 2011. Need for know patient, what causes the rash? [facility] in [facility]-30[facility]2023 Miscellaneous Notes* Telephone Encounter - Isaías Cartwright RN - 07/11/2022 2:28 PM EDT Called patient, no answer. Second message left to return call to office when able. MyChart message sent with ability to respond, patient appears to be MyChart active. Isaías Cartwright RN * Telephone Encounter - Isaías Cartwright RN - 07/10/2022 3:53 PM EDT Called patient, no answer. Message left to return call to office when able. Isaías A Cartwright, RN * Telephone Encounter - Audrey Martinez - 07/10/2022 9:38 AM EDT [place] Call Name of caller : Juanita Relationship to patient: Self Return call phone number : [phone] Reason for call : Other : Brief description of concern : Patient states he was told by Nedra to give her a call when he obtain information pertaining to a previous visit. documented in this [facility]03-29-2023 Miscellaneous Notes* Telephone Encounter - Roxana Najera - 07/10/2022 2:06 PM EDT OS office visit notes addressed to Dr. Darline North faxed to [facility] referring physician hot[facility] [place] [place] Forwarded records to Dr. North in [place] at [phone]. Also uploaded to chart. documented in this [facility]City [facility]03-28-2023 History of Present illness Narrative* Tello Slaughter PA-C - 07/09/2022 1:53 PM EDT Images from the original note were not included. [facility] MULTIPLE SCLEROS[facility] FOLLOWUP/ESTABLISHED PATIENT VISIT Principal Neurologic Diagnosis: Multiple Sclerosis HISTORY OF ILLNESS HEADER: Date of onset: 10/29/2002 Date of diagnosis: 03/2003 Disease course from Onset: Exacerbating/Remitting Disease course last year: Exacerbating/Remitting Current MS Disease Therapy: Tecfidera (started 03/2007 for research trial, commercial drug started 11/2017) Previous MS Disease Therapies: Avonex (04/2003--10/2006; breakthrough on MRI) Last MRI: 07/23/21 CHIEF COMPLAINT: Follow-up on MS disease modifying therapy INTERVAL HISTORY: Usual treating team: Can/Denilson The patient is accompanied by self. The patient was last seen 01/08/22, currently taking dimethyl fumarate . Denies missed doses. Since the patient's last visit the patient reports overall feeling stable. Was in [place] for 5.5 weeks - heat doesn't seem to bother him. Imbalance. 1 fall in [place]. Caught foot on curb, scraped knee Occasional ache in the legs Goes to the gym, swims Dermatology still can't figure out what is causing the skin changes. Saw Mateo Bautista MD ([facility]). Took another bx (deeper punch bx) and should find out results tomorrow Denies seizure activity. Continues on [employer] SUBJECTIVE & REVIEW OF SYSTEMS: Neuro-QoL Functions (higher=better functioning) Flowsheet [facility] Office Visit from 01/08/2022 in [facility] Office Visit from 07/04/2021 in [facility] Appointment from 06/14/2021 in [facility] Upper Extremity Domain T Score 46 49 39 Lower Extremity Domain T Score 37 37 37 Cognitive Function Domain T Score 49 46 48 Positive Affect Well Being T Score -- -- -- Ability To Participate In Social Roles T Score 42 50 44 Satisfaction With Social Roles T Score 45 44 49 Neuro-QoL Symptoms (higher=worse symptoms) Flowsheet [facility] Office Visit from 01/08/2022 in [facility] Office Visit from 07/04/2021 in [facility] Appointment from 06/14/2021 in [facility] Sleep Domain T Score 48 47 46 Fatigue Domain T Score 49 50 52 Anxiety Domain T Score 46 41 47 Depression Domain T Score 48 47 50 Stigma Domain T Score 45 37 54 Emotional Behavior Dyscontrol T Score -- -- -- *NeuroQoL is a multi-domain patient-reported quality of life questionnaire. PHQ-9 Flowsheet [facility] Office Visit from 04/03/2022 in Neurology Office Visit from 01/08/2022 in [facility] PHQ-9 Score 2 0 *PHQ-9 is a questionnaire for depressive symptoms, with scores 0-4 indicating none, 5-9 mild, 10-14moderate, 15-19 moderately severe, and 20-27 severe symptoms. PROMIS-10 Flowsheet Row Office Visit from 01/08/2022 in [facility] OT/PT/Speech Visit from 10/11/2021 in [facility] Outpatient Physical Therapy Global Physical Health T Score 42.3 37.4 Global Mental Health T Score 48.3 45.8 0-10 Standard Pain Scale 3 3 *PROMIS-10 is a patient-reported quality of life measure, typically reported as physical and mentaldomains. Here scores are expressed as percentiles, where the lowest possible score is one, the highest possible score is 99, and 50 is average. Refer to patient-entered data. Mood: PHQ9 responses reviewed and appear below Bladder: no change Bowel: no change Pain related to today's visit:reviewed on nursing intake documentation PAST HISTORY was reviewed and updated: PAST MEDICAL HISTORY Diagnosis Date Leptospirosis ~1991 MS (multiple sclerosis) ([facility]) 2007 Seizures ([facility]) PAST SURGICAL HISTORY Procedure Laterality Date PARTIAL SPLENECTOMY PAST SURGICAL HISTORY OF 1973 Splenectomy [place] [facility] post trauma MEDICATIONS and ALLERGIES were reviewed and updated. SOCIAL HISTORY was reviewed and updated: Social History Tobacco Use Smoking status: Former Types: Cigarettes Smokeless tobacco: Never Tobacco comments: Quit smoking 2008. Living situation: Living at home with assistance Employment Status / Disability: Retired OBJECTIVE: VITALS & WELLNESS: BP 140/54 Pulse 76 Ht 182.9 cm (6') Wt 90.7 kg (200 lb) BMI 27.12 kg/m MSPT Performance Tests 01/08/2022 07/04/2021 Processing Speed Total Number Correct 31 33 Low-contrast letter acuity test-2.5 percent opacity 30 31 Low-contrast letter acuity test-100 percent opacity 59 57 Dominant hand - - MDT Left Hand Time 33.52 42.09 MDT Right Hand Time 30.53 31.37 Walking Speed Test (25 feet) 8.56 9.74 EXAM: General Appearance: well appearing, in no acute distress Mental status evaluation during the interview and examination showed normal level of consciousness,orientation, language, memory, praxis, and higher intellectual function Affect: Normal Extraocular movements: nystagmus (R>L) Speech: normal Muscle strength (#/5): Right Left Upper Extremity: Deltoids 5 5 Biceps 5 5 Triceps 5 5 Replenishment Associate 5 5 Dorsal interossei 5 5 Lower extremity: Iliopsoas 5 5 Quadriceps 5 5 Hamstrings 5 5 Tibialis anterior 5 5 Gastrocnemius 5 5 Coordination: Upper extremity dexterity and rapid movements: impaired bilaterally Finger-nose: mild dysmetria or incoordination are evident bilaterally Standing balance: Impaired Standard gait: wide-based, unsteady. Assistive device: cane RESULTS: Monitoring labs: CBC + Diff Component Value Date WBC 9.55 01/08/2022 HB 15.5 01/08/2022 HCT 46.7 01/08/2022 PLT 366 01/08/2022 ABSLYMPH 1.30 01/08/2022 CMP Component Value Date AST 22 01/08/2022 ALT 13 01/08/2022 No results found for: JCVAB, JCVIND Discrete MRI Results Component Value Date Brain New T2 Lesions None Site 07/23/2021 Brain Enhancing Lesions None 07/23/2021 ASSESSMENT/PLAN: Juanita Jay is a 67 year old male with Multiple Sclerosis. Patient is on dimethyl fumarate for DMT. Reports good tolerance and compliance. Labs reviewed and acceptable. Continue to monitor q6 months (he will call PCP office to see if any labs needed and coordinate draw). Recommend brain MRI in about 1 year or sooner if new symptoms develop. MRI of the brain and/or spinal cord is being orderedto evaluate for efficacy of multiple sclerosis (MS) disease modifying therapy. Disease activity in MS is often not immediately detectable on history or examination, but is sensitively identified on MRI. If identified, new or active MS lesions on MRI may represent suboptimal response to MS therapy, and would change medical management. Denies new MS symptoms. Discussed wearing right AFO more for longer walks to help with fall prevention/drop foot. Continue to follow with epilepsy team. He is still being worked up by dermatology for skin changes - he will keep us updated on bx results. Exam is:Stable, continue with current IMDT. The prescribed disease modifying therapy for MS is having the expected benefit in this patient based on imaging and clinical criteria, and will be continued or refilled, with planned follow-up at approximately 6-month intervals to continue to assess response on an ongoing basis. Patient Health Education Discussed at Visit: Aerobic exercise, Risks and Common side effects of MS medications, and Vitamin D supplementation Follow-up: In 6 months at [facility] I spent a total of 30 minutes on the date of the service which included preparing to see the patient, [id number] patient care, completing clinical documentation, obtaining and/or reviewing separately obtained history, performing a medically appropriate examination, counseling and educating the pat ient/family/caregiver, ordering medications, tests, or procedures, and communicating results to thepatient/family/caregiver. Tello Slaughter PA-C The chart was reviewed for possible participation in the following studies:None documented in this encounterCity Hospital02-07-2023 History of Present illness Narrative* Eden Arredondo - 05/21/2022 3:43 PM EST 1st attempt, sent MC message. * Isaías Barillas APRN.CNP - 05/21/2022 2:57 PM EST Please reach out to this patient to see if he is still planning to keep Dr. Monroe as his PCP as hehas not been seen by him since 2019. If so, please schedule a 40 minute appointment for a physical and to review overdue health maintenance items. If the patient has transferred care elsewhere, please remove Dr. Monroe's name from the chart. Isaías Barillas APRN.SHIRA documented in this encounterCity Hospital01-06-2023 Miscellaneous Notes* Telephone Encounter - Kristy So LPN - 04/19/2022 10:52 AM EST Faxed Rx referral [facility] [phone] 04/19/2021. Kristy So LPN * Telephone Encounter - Dianne Leigh PA-C - 04/19/2022 10:31 AM EST Referral was printed and will be faxed. * Telephone Encounter - Amy Gibbs - 04/19/2022 9:18 AM EST Patient was referred to an outside Dermatology provider in October 2021. Patient returned office call and would like a referral sent to Dr. Mateo Bautista with [facility]. Please fax to [phone]. Patient states he had been seen by Dr. Cristel Salas who was not able to help patient. documented in this encounterCity Hospital12-21-2022 History of Present illness Narrative* Raymon Simon MD, PhD - 04/03/2022 3:32 PM EST [facility] Patient Name: Juanita Jay Date of : 1955 ESTABLISHED EPILEPSY CLINIC NOTE April 03, 2022 3:32 PM HISTORY OF PRESENT ILLNESS: The patient is a right handed male with MS (diagnosed in 2012) who has been diagnosed with having seizures. The first seizure (May 2011) occurred watching TV, and 2nd one a few a few days after the first one, the third one occurred in the middle of Zonegran initiation. Since he had been on [id number] mg bid, he had another seizure while watching TV 03/13/2012, subsequently, Zonegran increased to 500 mg per day. He has no further seizure. He has been on Zonegran 200mg/300 mg since 03/2012. There are no complaints of side effects related to medications. The last seizure was on 02/15/2012. At follow up visit on 04/03/2022: on Zonisamde 200mg/300mg No seizures The last seizure was 2011. His MS is table, slow worsening gait, need a cane He drives with his in the car, most time his drive At follow up visit on 03/29/2021: Continue Zonegran 200mg/300 mg unchanged (no side effects) No seizures Good compliance with medications that are taken around 7:30a/8p. Mood is good with celexa. Sleep isgood. Does not use alcohol, tobacco, or illicit drugs. No new medical conditions, ER visits, or newmedications. 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 Currently lives with . His MS is stable- issueswith balance but he is managing well. At office visit on 01/19/2020: no seizures. The last seizure was on 02/15/2012. He has continued Zoniamide 200 mg and 300 mg evening No side effects to Zoniasmide He is here for refill of AED His MS has progressed slowly, he now has unsteady gait while walking PRIOR ANTICONVULSANT HISTORY: Levetiracetam, Tegretol, and Zonisimide Following AEDS were associated with side effects: Keppra (mood). Of note, 2 weeks after taking Tegretol, he developed groin rash. He was then switched to Zonisamide. The rash was eventually thought to be shingles. 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 Infections (-) Developmental Delay (-) Family history of epilepsy (-) Febrile Seizure (-) Complications (-) Stroke (-) Traumatic Brain Injury CURRENT OUTPATIENT ANTISEIZURE MEDICATIONS (as of the start of the encounter) zonisamide (ZONEGRAN) 100 mg capsule Take 200 mg am and 300 mg pm Prior Anti-seizure Therapies: Trial Adequacy: Max Daily Dose Achieved: Side Effects: Effectiveness: Comments: Carbamazepine Levetiracetam Psychiatric Zonisamide Patient Entered Data: EPILEPSY SCORE 03/31/2022 7:30 PM 03/31/2022 7:19 PM 01/07/2022 9:43 AM First answer obtained - 01/18/2020 11:10 AM PHQ-9 SCORE 2 [None-Minimal Depression] - 0 [None-Minimal Depression] - YOLANDA 2 SCORE 1 [Negative Anxiety Screen] - - - YOLANDA 7 SCORE - - - - QOLIE-10 SCORE (0=worst; 100=best QoL - higher scores represent better function) 17 - - - LSSS SCORE (0- no seizures 100- most severe possible seizures) - - - - C-SSRS SCREEN - - - - On average, how many hours of sleep do you get in a 24-hour period? - - - PROMIS Sleep Disturbance T-SCORE - 44 [within normal limits] - 41 [within normal limits] Have you been diagnosed with Sleep Apnea? 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 dimethyl fumarate (TECFIDERA) [address] TAKE 1 CAPSULE BY MOUTH 2 TIMES A DAY baclofen (LIORESAL) 10 mg tablet TAKE 1 TABLET BY MOUTH EVERYDAY AT BEDTIME ASPIRIN ORAL Take by mouth. For body aches zonisamide (ZONEGRAN) 100 mg capsule Take 200 mg am and 300 mg pm sildenafil (REVATIO) 20 mg tablet 1-2 TABS NEEDED 30-60 MINUTES PRIOR TO SEXUAL INTERCOURSE cephALEXin (KEFLEX) 500 mg capsule Take 1 capsule by mouth twice daily. ergocalciferol 50,000 unit capsule (VITAMIN D2, DRISDOL) Take 1 capsule by mouth one time a week. aspirin, enteric coated (ADULT LOW DOSE ASPIRIN) 81 mg EC tablet Take 1 tablet by mouth once daily.(Patient taking differently: Take 81 mg by mouth as needed.) naproxen sodium(ALEVE 220 MG TAB) as needed multivitamins w-minerals/lut(CENTRUM SILVER TAB) Take one daily No current facility-administered medications for this visit. ALLERGIES Allergen Reactions Carbamazepine Rash, Other: See Comments Acute urinary retention PAST MEDICAL HISTORY Diagnosis Date Leptospirosis ~1991 MS (multiple sclerosis) ([facility]) 2006 Seizures ([facility]) PAST SURGICAL HISTORY Procedure Laterality Date PARTIAL SPLENECTOMY PAST SURGICAL HISTORY OF 1972 Splenectomy [facility] post trauma FAMILY HISTORY Problem Relation Age of Onset Stroke Father Cancer Mother Bone VITAL SIGNS: There were no vitals taken for this visit. NEUROLOGICAL EXAM: The patient's speech, affect, and cognition appear normal. Normal eye movements. No nystagmus noted. No facial asymmetry,hearing intact. Muscle Bulk are normal. 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 Will continue Zonegran 200 mg/300 mg(increased from 200 mg bid since beginning of Mar 2012). No further seizures and the last seizure was 2011. PLAN: Continue Zonegran 200mg/300 mg unchanged. Refilled for a year Follow in one year Raymon Simon MD PhD Staff, [facility] [place] documented in this encounterCity Hospital12-17-2022 NoteHNO ID: [id number] Author: Kailey Lebron, PT, DPT Service: ? Author Type: Physical Therapist Type: Progress Notes Filed: 03/30/2022 9:19 AM Note Text: 03/30/2022 [facility] PHYSICAL THERAPY DISCONTINUANCE OF CARE Plan of Care Period: Start of Care Date: 08/15/21 Last Visit Date: 01/17/2022 Therapy Program: The following is a summary of the interventions provided for this episode of care; Therapeutic exercise and Neuromuscular re-education Assessment: The following is the goal status: Goals for Episode of Care: updated 01/11/2022 Patient will increase strength of B LE to grossly 5/5 to allow patient to improve gait mechanics/gait pattern. --mild regression Patient will increase flexibility of R gastroc to 10 degrees to improve mechanics for gait. --mild regression Patient will ambulate with least restrictive device with modified independence and improved ERIKA. --not met Improve five time sit to stand to <11.5 seconds WITH hands to decrease risk of falls and (evaluation: 13.9 seconds).--progressing Patient will complete 12 reps on 30 second chair stand test WITH hands to decrease risk of falls. --not met Improve score on Timed Up and Go to by 3 sec to demonstrate MCID. ---progressing Improve score on Royal Balance Scale to >46/56 to decrease fall risk with Device. --regressed Improve tandem stance on 4 stage balance test to = or >10 seconds to decrease risk for falls. --mild regression Based on the most recent progress report, patient was progressing slower than expected toward functional goals based on appointment compliance. Reason for Discontinuation of Care: Patient has not returned to therapy or scheduled additional follow-up appointments. Kailey Lebron, PT, DPSelect Medical TriHealth Rehabilitation [phone] Miscellaneous Notes* Telephone Encounter - Elisha Anand - 02/14/2022 10:28 AM EDT Received lab results from [facility]. Placed in provider's inbox for review. Route to MA scanning. documented in this encounterCity Hospital10-21-2022 Miscellaneous Notes* Telephone Encounter - Sara Madrigal LPN - 02/01/2022 9:30 AM EDT Received 02/01/2022 from [facility]. Placed in provider's inbox for review. Route to MA for scanning documented in this encounterCity Hospital10-18-2022 Miscellaneous Notes* Telephone Encounter - Elisha Anand - 01/29/2022 2:50 PM EDT Received labs from [facility]. Placed in provider's inbox for review. Route to MA scanning. documented in this encounterCity Hospital10-06-2022 NoteHNO ID: [id number] Author: Kailey Lebron, PT, DPT Service: ? Author Type: Physical Therapist Type: Progress Notes Filed: 01/17/2022 3:37 PM Note Text: Episode Visit Count: 10 Therapist That Will Accept/Oversee The Plan Of Care: Kailey Lebron Start of Care Date: 08/15/21 Onset Date: 08/15/20 Plan of Care Certification Date: 01/11/22 Next Certification Due Date: 03/13/22 Patient Identified by Name and Date of : Yes REHABILITATION AND SPORTS THERAPY PHYSICAL THERAPY TREATMENT NOTE ASSESSMENT: Juanita Jay tolerated the session with expected muscle soreness. He demonstrated good effort with all ex. Improved demonstrated and verbalized ease with sit to stand with ant weight shift cues. . The patient will continue to benefit from ongoing skilled physical therapy to progress toward set goals. PLAN FOR NEXT VISIT: Standing balance. Further coordination. Cones weaving. SUBJECTIVE: Patient Reason for Visit: No issues since last here. NO falls. 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 Pain: Pain Pain Level: 0 Post Treatment Pain Post Treatment Pain Level: 0 OBJECTIVE MEASURES WITH LEVEL OF FUNCTION: SBA for gait and transfers. TREATMENT: Therapeutic Exercise: 1: Nustep, Seat 12, Level 4, LE only, x 7 min; status/subjective completed 3: Repeated sit to stand from nustep working on fwd lean 2 x 10 4: Calf stretch on incline 3 x 30 sec B 5: Soleus stretch 3 x 30 sec B 6: Hamstring stretch standing 3 x 30 sec each 7: R step ups, 6'' x 15; lateral x 15 R 8: B PF standing x 20 9: R HS curls standing x 15 10: B Standing DF x 20 11: R hip flex march standing x 10 12: R hip "into bucket" x 10 Skilled Intervention: Proper selection of treatments for this session based on clinical presentation, deficits, and needs. Patient educated on technique for exercises/activities performed this session. SBA for safety. Billing Therapeutic Exercise Treatment Minutes: 38 Total Treatment Time Minutes (timed/untimed): 38 Kailey Lebron PT, [facility]10-06-2022 History of Present illness Narrative* Kailey Lebron PT, DPT - 01/17/2022 1:15 PM EDT Episode Visit Count: 10 Therapist That Will Accept/Oversee The Plan Of Care: Kailey Lebron Start of Care Date: 08/15/21 Onset Date: 08/15/20 Plan of Care Certification Date: 01/11/22 Next Certification Due Date: 03/13/22 Patient Identified by Name and Date of : Yes REHABILITATION AND SPORTS THERAPY PHYSICAL THERAPY TREATMENT NOTE ASSESSMENT: Juanita Jay tolerated the session with expected muscle soreness. He demonstrated good effort with all ex. Improved demonstrated and verbalized ease with sit to stand with ant weight shift cues. . The patient will continue to benefit from ongoing skilled physical therapy to progress toward set goals. PLAN FOR NEXT VISIT: Standing balance. Further coordination. Cones weaving. SUBJECTIVE: Patient Reason for Visit: No issues since last here. NO falls. 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 Pain: Pain Pain Level: 0 Post Treatment Pain Post Treatment Pain Level: 0 OBJECTIVE MEASURES WITH LEVEL OF FUNCTION: SBA for gait and transfers. TREATMENT: Therapeutic Exercise: 1: Nustep, Seat 12, Level 4, LE only, x 7 min; status/subjective completed 3: Repeated sit to stand from nustep working on fwd lean 2 x 10 4: Calf stretch on incline 3 x 30 sec B 5: Soleus stretch 3 x 30 sec B 6: Hamstring stretch standing 3 x 30 sec each 7: R step ups, 6'' x 15; lateral x 15 R 8: B PF standing x 20 9: R HS curls standing x 15 10: B Standing DF x 20 11: R hip flex march standing x 10 12: R hip "into bucket" x 10 Skilled Intervention: Proper selection of treatments for this session based on clinical presentation, deficits, and needs. Patient educated on technique for exercises/activities performed this session. SBA for safety. Billing Therapeutic Exercise Treatment Minutes: 38 Total Treatment Time Minutes (timed/untimed): 38 Kailey Lebron PT, DPT documented in this encounterCity Hospital09-30-2022 NoteHNO ID: [id number] Author: Kailey Lebron PT, DPT Service: ? Author Type: Physical Therapist Type: Progress Notes Filed: 01/11/2022 9:15 AM Note Text: Episode Visit Count: 9 Therapist That Will Accept/Oversee The Plan Of Care: Kailey Lebron Start of Care Date: 08/15/21 Onset Date: 08/15/20 Plan of Care Certification Date: 01/11/22 Next Certification Due Date: 03/13/22 Patient Identified by Name and Date of : Yes REHABILITATION AND SPORTS THERAPY PHYSICAL THERAPY PROGRESS REPORT PLAN OF CARE UPDATE: Assessment: Juanita Jay demonstrates mild regression in rising from a chair, standing, and physical activities. He hasprogressed toward some goals and regressed towards others likely due to no PT in 2 months. Patient continues to present with impairments in balance, coordination, flexibility, gait, overall function, and strength that interfere with . Current prognosis is Good due to: current objective clinical presentation;good overall health status Fair due to: chronic nature of impairments . He will benefit from continued skilled therapy services to meet the updated goals for this plan of care as noted below. Goals for Episode of Care: updated 01/11/2022 Patient will increase strength of B LE to grossly 5/5 to allow patient to improve gait mechanics/gait pattern. --mild regression Patient will increase flexibility of R gastroc to 10 degrees to improve mechanics for gait. --mild regression Patient will ambulate with least restrictive device with modified independence and improved ERIKA. --not met Improve five time sit to stand to <11.5 seconds WITH hands to decrease risk of falls and (evaluation: 13.9 seconds).--progressing Patient will complete 12 reps on 30 second chair stand test WITH hands to decrease risk of falls. --not met Improve score on Timed Up and Go to by 3 sec to demonstrate MCID. ---progressing Improve score on Royal Balance Scale to >46/56 to decrease fall risk with Device. --regressed Improve tandem stance on 4 stage balance test to = or >10 seconds to decrease risk for falls. --mild regression Planned Interventions, Frequency, and Duration: 1x/week, 8 weeks Total Number of Visits Planned: 8 Patient to be seen for Therapeutic exercise (55118);Neuromuscular re-education (35990);Manual therapy (70566);Therapeutic activities (19543);Self-snf management (25587);Gait Training (87413);Patient/Family/Caregiver Education PLAN FOR NEXT VISIT: R LE strengthening. R LE calf and HS stretches. Further coordination. Cones weaving. SUBJECTIVE: Patient Reason for Visit: Out of state in [place] since last here for 1 month. 1 fall since last here injuring R shoulder (no fx just sore). Still doing HEP. Balance has been about the same. '. Falls Comments: 1 fall since October 2021 Pain: Pain Pain Level: 0 Post Treatment Pain Post Treatment Pain Level: 0 PROMIS Scales Higher is Better 10/16/2021 01/07/2022 01/09/2022 Phys Func - Score 43 (mild dysfunction) - 39 (moderate dysfunction) Phys Func - Percentile 24 % - 14 % Social Roles - Score 45 (within normal limits) - - Social Role - Percentile 31 % - - GH Physical - Score - 42.3 (Good) - GH Physical - Percentile - 22 % - GH Mental - Score - 48.3 (Very Good) - GH Mental - Percentile - 43 % - Self-Eff Symptom - Score 49 (Average) - 49 (Average) Self-Eff Symptom - Percentile 46 % - 46 % T-scores: mean of general population = 50. 5 points is clinically meaningfully difference Percentiles provide an indication of how the patient's score ranks in relation to the general population. Higher percentile rankings indicate better function/quality of life. 50th percentile is the average of the general population and indicates half of respondents had a worse score. Lower is Better 08/15/2021 09/18/2021 10/16/2021 Fatigue - Score 42 (within normal limits) 49 (within normal limits) 47 (within normal limits) Fatigue - Percentile 79 % 54 % 62 % T-scores: mean of general population = 50. 5 points is clinically meaningfully difference Percentiles provide an indication of how the patient's score ranks in relation to the general population. Higher percentile rankings indicate better function/quality of life. 50th percentile is the average of the general population and indicates half of respondents had a worse score. OBJECTIVE MEASURES WITH LEVEL OF FUNCTION: Posture / Alignment Posture: Rounded shoulders UE AROM R UE AROM: Generally WNL L UE AROM: WNL R Shoulder Scapation: 150 L Shoulder Scapation: 160 LE Flexibility R Hamstring Flexibility: 65 L Hamstring Flexibility: 59 R Gastrocnemius Flexibility: 5 L Gastrocnemius Flexibility: 15 UE and Cervical Strength R Shoulder Flexion: (WNL R UE) L Shoulder Flexion: (WNL L UE) LE Strength R Hip Extension: 5/5 R Hip Flexion (L2): 4+/5 R Hip ABduction: 5/5 R Knee Extension (L3): 4/5 R Knee Flexion: 4/5 R Ankle Dorsiflexion (L4): 4+/5 R (more content not included)...[facility] [id number] History of Present illness Narrative* Kailey Lebron, PT, DPT - 01/11/2022 8:22 AM EDT Episode Visit Count: 9 Therapist That Will Accept/Oversee The Plan Of Care: Kailey Lebron Start of Care Date: 08/15/21 Onset Date: 08/15/20 Plan of Care Certification Date: 01/11/22 Next Certification Due Date: 03/13/22 Patient Identified by Name and Date of : Yes REHABILITATION AND SPORTS THERAPY PHYSICAL THERAPY PROGRESS REPORT PLAN OF CARE UPDATE: Assessment: Juanita Jay demonstrates mild regression in rising from a chair, standing, and physical activities. He hasprogressed toward some goals and regressed towards others likely due to no PTin 2 months. Patient continues to present with impairments in balance, coordination, flexibility, gait, overall function, and strength that interfere with . Current prognosis is Good due to: current objective clinical presentation;good overall health status Fair due to: chronic nature of impairments . He will benefit from continued skilled therapy services to meet the updated goals for this plan of care as noted below. Goals for Episode of Care: updated 01/11/2022 Patient will increase strength of B LE to grossly 5/5 to allow patient to improve gait mechanics/gait pattern. --mild regression Patient will increase flexibility of R gastroc to 10 degrees to improve mechanics for gait. --mild regression Patient will ambulate with least restrictive device with modified independence and improved ERIKA. --not met Improve five time sit to stand to <11.5 seconds WITH hands to decrease risk of falls and (evaluation: 13.9 seconds).--progressing Patient will complete 12 reps on 30 second chair stand test WITH hands to decrease risk of falls. --not met Improve score on Timed Up and Go to by 3 sec to demonstrate MCID. ---progressing Improve score on Royal Balance Scale to >46/56 to decrease fall risk with Device. --regressed Improve tandem stance on 4 stage balance test to = or >10 seconds to decrease risk for falls. --mild regression Planned Interventions, Frequency, and Duration: 1x/week, 8 weeks Total Number of Visits Planned: 8 Patient to be seen for Therapeutic exercise (49551);Neuromuscular re-education (41777);Manual therapy (03580);Therapeutic activities (41217);Self-snf management (25833);Gait Training (06420);Patient/Family/Caregiver Education PLAN FOR NEXT VISIT: R LE strengthening. R LE calf and HS stretches. Further coordination. Cones weaving. SUBJECTIVE: Patient Reason for Visit: [place] in [place] since last here for 1 month. 1 fall since last here injuring R shoulder (no fx just sore). Still doing HEP. Balance has been about the same. '. Falls Comments: 1 fall since October 2021 Pain: Pain Pain Level: 0 Post Treatment Pain Post Treatment Pain Level: 0 PROMIS Scales Higher is Better 10/16/2021 01/07/2022 01/09/2022 Phys Func - Score 43 (mild dysfunction) - 39 (moderate dysfunction) Phys Func - Percentile 24 % - 14 % Social Roles - Score 45 (within normal limits) - - Social Role - Percentile 31 % - - GH Physical - Score - 42.3 (Good) - GH Physical - Percentile - 22 % - GH Mental - Score - 48.3 (Very Good) - GH Mental - Percentile - 43 % - Self-Eff Symptom - Score 49 (Average) - 49 (Average) Self-Eff Symptom - Percentile 46 % - 46 % T-scores: mean of general population = 50. 5 points is clinically meaningfully difference Percentiles provide an indication of how the patient's score ranks in relation to the general population. Higher percentile rankings indicate better function/quality of life. 50th percentile is the average of the general population and indicates half of respondents had a worse score. Lower is Better 08/15/2021 09/18/2021 10/16/2021 Fatigue - Score 42 (within normal limits) 49 (within normal limits) 47 (within normal limits) Fatigue - Percentile 79 % 54 % 62 % T-scores: mean of general population = 50. 5 points is clinically meaningfully difference Percentiles provide an indication of how the patient's score ranks in relation to the general population. Higher percentile rankings indicate better function/quality of life. 50th percentile is the average of the general population and indicates half of respondents had a worse score. OBJECTIVE MEASURES WITH LEVEL OF FUNCTION: Posture / Alignment Posture: Rounded shoulders UE AROM R UE AROM: Generally WNL L UE AROM: WNL R Shoulder Scapation: 150 L Shoulder Scapation: 160 LE Flexibility R Hamstring Flexibility: 65 L Hamstring Flexibility: 59 R Gastrocnemius Flexibility: 5 L Gastrocnemius Flexibility: 15 UE and Cervical Strength R Shoulder Flexion: (WNL R UE) L Shoulder Flexion: (WNL L UE) LE Strength R Hip Extension: 5/5 R Hip Flexion (L2): 4+/5 R Hip ABduction: 5/5 R Knee Extension (L3): 4/5 R Knee Flexion: 4/5 R Ankle Dorsiflexion (L4): 4+/5 R Ankle Inversion: 5/5 R Ankle Eversion: 4+/5 L Hip Extension: 5/5 L Hip Flexion (L2): 5/5 L Hip ABduction: 5/5 L Knee Extension (L3): 5/5 L Ankle Dorsiflexion (L4): 5/5 L Ankle Inversion: 5/5 L Ankle Eversion: 5/5 Tone R Plantarflexor: 1: Slight increase in tone (catch and release at end of ROM) Movement Description Heel to Glass Impairment: Bilateral Rapid Alternating Movements Impairment: (WFL) Finger/Foot Tapping Impairment: Bilateral Mobility Sit To Stand: Stand By Assistance Sit To Stand Comments: Decreased ant weight shift; decreased stand to sit into chair Gait Gait: Stand By Assistance Gait Device: Cane Gait Deviations: General Deviations General Deviations/Observations: Ataxic gait;Wide base of support Functional Performance Test Results Assistive Device: Cane 30 Second Chair Stand Test: 9 reps 5 Times Sit to Stand Test : 14.3 sec Timed Up and Go (sec): 10.77 sec 4 Stage Balance Test Narrow base of support (sec): 60 sec (EC: 10 sec) Semi-tandem base of support (sec): 30 sec Tandem base of support (sec): 1 sec Royal Balance Scale Sit to stand : 3 - Able to stand independently using hands Standing unsupported : 4 - Able to stand safety 2 min Sitting : 4 - Able to sit safety and securely for 2 min Stand to sit: 2 - Uses back of legs against chair to control descent Transfers: 3 - Able to transfer safety definite need of hands Standing unsupported with eyes closed : 4 - Able to stand 10 sec safely Standing unsupported with feet together : 3 - Able to place feet together independently and stand for 1 min with supervision Reaching forward : 4 - Can reach forward confidently >10 inches Picking up object from floor : 4 - Able to warp picker object safely and easily Looking over shoulder: Looks behind from both sides and weight shifts well Turn 360 degrees : 0 - Needs assistance while turning Alternate foot on step: 1 - Able to complete >2 steps needs minimal assist Tandem standing : 2 - Able to take small step independently and hold 30 sec Standing on leg : 0 - Unable to try or needs assist to prevent fall Royal Balance Test Total (calculated): 38 CTSIB Eyes open, firm surface Trial 1 (sec): 120 Eyes open, firm surface Trial 1 (sway): WNL Eyes closed, firm surface Trial 1 (sway): Mild Tandem standing, eyes open Trial 1 (sec): 1 Tandem standing, eyes open Trial 1 (sway): Loss of balance Tandem standing, eyes open Trial 2 (sec): 1 Tandem standing, eyes open Trial 2 (sway): Loss of balance Partial tandem standing, eyes open Trial 1 (sec): 3 Partial tandem standing, eyes open Trial 1 (sway): Loss of balance Partial tandem standing, eyes open Trial 2 (sec): 30 Partial tandem standing, eyes open Trial 2 (sway): Moderate TREATMENT: Therapeutic Exercise: 2: Reassessment completed Skilled Intervention: Proper technique & skills to assess ROM & strength to properly adjustplan of care. Neuromuscular Re-Education: 2: Outcomes completed Skilled Intervention: Proper implementation of objective outcomes with explanation of findings/deficits. Proper patient guarding to prevent falls/increase patient safety. Billing Therapeutic Exercise Treatment Minutes: 25 Neuromuscular Re-Education Treatment Minutes: 15 Total Treatment Time Minutes (timed/untimed): 40 Kailey Lebron PT DPT documented in this encounterCity Hospital09-27-2022 Instructions* Patient Instructions* Tello Slaughter PA-C - 01/08/2022 2:10 PM EDT Skin - Pityriasis versicolor or tinea versicolor? documented in this encounterCity Hospital09-27-2022 History of Present illness Narrative* Tello Slaughter PA-C - 01/08/2022 1:51 PM EDT Images from the original note were not included. [facility] FOR MULTIPLE SCLEROSIS FOLLOWUP/ESTABLISHED PATIENT VISIT Principal Neurologic Diagnosis: Multiple Sclerosis HISTORY OF ILLNESS HEADER: Date of onset: 10/29/2002 Date of diagnosis: 03/2003 Disease course from Onset: Exacerbating/Remitting Disease course last year: Exacerbating/Remitting Current MS Disease Therapy: Tecfidera (started 03/2007 for research trial, commercial drug started 11/2017) Previous MS Disease Therapies: Avonex (04/2003--10/2006; breakthrough on MRI) Last MRI: 07/23/21 CHIEF COMPLAINT: Follow-up on MS disease modifying therapy INTERVAL HISTORY: Usual treating team: Carter The patient is accompanied by self. The patient was last seen 07/04/21, currently taking Tecfidera (generic). Since the patient's last visit the patient reports overall feeling stable. Retired after 34 years Will go to [place] for a month in May ([place]) Skin discoloration on forearms and hands - started about 2-3 weeks ago - did blood test and rigoberto - Cristel Lilly (derm) - at first it itched but not currently Denies new MS symptoms Baclofen helps at bedtime when takes - Leg aches at night sometimes - leg cramp. In thigh [facility] Has been [facility] too SUBJECTIVE & REVIEW OF SYSTEMS: Neuro-QoL Functions (higher=better functioning) Flowsheet [facility] Office Visit from 01/08/2022 in [facility] Office Visit from 07/04/2021 in [facility] Appointment from 06/14/2021 in [facility] Upper Extremity Domain T Score 46 49 39 Lower Extremity Domain T Score 37 37 37 Cognitive Function Domain T Score 49 46 48 Positive Affect Well Being T Score -- -- -- Ability To Participate In Social Roles T Score 42 50 44 Satisfaction With Social Roles T Score 45 44 49 Neuro-QoL Symptoms (higher=worse symptoms) Flowsheet [facility] Office Visit from 01/08/2022 in [facility] Office Visit from 07/04/2021 in [facility] Appointment from 06/14/2021 in [facility] Sleep Domain T Score 48 47 46 Fatigue Domain T Score 49 50 52 Anxiety Domain T Score 46 41 47 Depression Domain T Score 48 47 50 Stigma Domain T Score 45 37 54 Emotional Behavior Dyscontrol T Score -- -- -- *NeuroQoL is a multi-domain patient-reported quality of life questionnaire. PHQ-9 [facility] Office Visit from 01/08/2022 in [facility] Office Visit from 07/04/2021 in [facility] PHQ-9 Score 0 0 *PHQ-9 is a questionnaire for depressive symptoms, with scores 0-4 indicating none, 5-9 mild, 10-14moderate, 15-19 moderately severe, and 20-27 severe symptoms. [facility] OT/PT/Speech Visit from 10/11/2021 in [facility] Outpatient Physical Therapy Global Physical Health T Score 42.3 37.4 Global Mental Health T Score 48.3 45.8 0-10 Standard Pain Scale 3 3 *PROMIS-10 is a patient-reported quality of life measure, typically reported as physical and mentaldomains. Here scores are expressed as percentiles, where the lowest possible score is one, the highest possible score is 99, and 50 is average. Refer to patient-entered data. Mood: PHQ9 responses reviewed and appear below Bladder: no change - nocturia Bowel: no change Pain related to today's visit:reviewed on nursing intake documentation Fall risk: 1 fall playing putt-putt golf, tripped over course. Hit shoulder but no injury Vision: stable PAST HISTORY was reviewed and updated: PAST MEDICAL HISTORY Diagnosis Date Leptospirosis ~1991 MS (multiple sclerosis) ([facility]) 2007 Seizures ([facility]) PAST SURGICAL HISTORY Procedure Laterality Date PARTIAL SPLENECTOMY PAST SURGICAL HISTORY OF 1972 Splenectomy [place] [facility] post trauma MEDICATIONS and ALLERGIES were reviewed and updated. SOCIAL HISTORY was reviewed and updated: Social History Tobacco Use Smoking status: Former Types: Cigarettes Smokeless tobacco: Never Tobacco comments: Quit smoking 2008. Living situation: Living at home with assistance Employment Status / Disability: Retired OBJECTIVE: VITALS & WELLNESS: BP 143/86 Pulse 82 Ht 182.9 cm (6') Wt 89.4 kg (197 lb) BMI 26.72 kg/m PDDS: 4-Early Cane MSPT Performance Tests 01/08/2022 07/04/2021 Processing Speed Total Number Correct 31 33 Low-contrast letter acuity test-2.5 percent opacity 30 31 Low-contrast letter acuity test-100 percent opacity 59 57 Dominant hand - - MDT Left Hand Time 33.52 42.09 MDT Right Hand Time 30.53 31.37 Walking Speed Test (25 feet) 8.56 9.74 EXAM: General Appearance: well appearing, in no acute distress Mental status evaluation during the interview and examination showed normal level of consciousness,orientation, language, memory, praxis, and higher intellectual function Affect: Normal Extraocular movements: full, without SHARONA Facial movements: Intact bilaterally Speech: normal Muscle strength (#/5): Right Left Upper Extremity: Deltoids 5 5 Biceps 5 5 Triceps 5 5 Replenishment Associate 5 5 Dorsal interossei 5 5 Lower extremity: Iliopsoas 5 5 Quadriceps 5 5 Hamstrings 5 5 Tibialis anterior 5 5 Gastrocnemius 5 5 Coordination: Upper extremity dexterity and rapid movements: impaired bilaterally Finger-nose: mild dysmetria or incoordination are evident bilaterally Standing balance: Impaired Standard gait: wide-based, unsteady. Assistive device: cane RESULTS: Monitoring labs: No results found for: WBC, HB, HCT, PLT, ABSLYMPH No results found for: AST, GLUC, BUN, CREAT, NA, K, CHLOR, ALTNo results found for: JCVAB, JCVIND Discrete MRI Results Component Value Date Brain New T2 Lesions None Site 07/23/2021 Brain Enhancing Lesions None 07/23/2021 ASSESSMENT/PLAN: Juanita Jay is a 66 year old male with Multiple Sclerosis. Patient is on dimethyl fumarate for DMT. Reports good tolerance and compliance. Will obtain labs today. Brain MRI from July 2021 appears stable. Continue to monitor annually. MRI of the brain and/or spinal cord is being ordered to evaluate for efficacy of multiple sclerosis (MS) disease modifying therapy. Disease activity in MS is often not immediately detectable on history or examination, but is sensitively identified on MRI. If identified, new or active MS lesions on MRI may represent suboptimal response to MS therapy, and would change medical management. Discussed taking baclofen more regularly for leg cramping and continuing stretching exercising. BP was elevated today and he will monitor at home since this is outside histypical trends. Follow with epilepsy team as directed. Exam is:Stable, continue with current IMDT. The prescribed disease modifying therapy for MS is having the expected benefit in this patient based on imaging and clinical criteria, and will be continued or refilled, with planned follow-up at approximately 6-month intervals to continue to assess response on an ongoing basis. Continue dimethyl fumarate Labs today Brain MRI in 1 year Baclofen more regularly Continue PT Monitor BP at home Patient Health Education Discussed at Visit: Aerobic exercise, Emotional Health/Wellness, Risks andCommon side effects of MS medications, and Stretching Follow-up: In 6-12 months at [facility] I spent a total of 35 minutes on the date of the service which included preparing to see the patient, [id number] patient care, completing clinical documentation, obtaining and/or reviewing separately obtained history, performing a medically appropriate examination, counseling and educating the pat ient/family/caregiver, ordering medications, tests, or procedures, and communicating results to thepatient/family/caregiver. Tello Slaughter PA-C The chart was reviewed for possible participation in the following studies:None documented in this encounterCity Hospital09-22-2022 History of Present illness Narrative* Sophia Marshall Sec - 01/03/2022 10:15 AM EDT Requested by: Received fax from pharmacy Medication Requested: Dimethyl Fumarate 240 mg. [email or web address] phone #: Patient ID#: last 4 [phone] [id number] Faxed over completed PA Form along with last office note to fax #[phone]. APPROVED from 01/03/2022 thru 01/03/2023, [employer]# [employer] 22- [phone] . documented in this encounterCity Hospital09-15-2022 Miscellaneous Notes* Telephone Encounter - Kj Godfrey - 12/27/2021 10:20 AM EDT Relayed messasges to Schedule lab work with appointment. * Telephone Encounter - Isaías Cartwright RN - 12/26/2021 8:25 AM EDT Called patient, no answer. Message left to return call to office when able. If patient returns call, please notify him he is overdue for lab work and Tello would like him to obtain when he comes in for upcoming appointment on 01-08-22[facility] lab hours are now Mon- Fri 10am - 4pm. Isaías Cartwright RN * Telephone Encounter - Tello Slaughter PA-C - 12/20/2021 11:17 PM EDT The following approved medication requests have been transmitted electronically. Requested Prescriptions Signed Prescriptions Disp Refills dimethyl fumarate (TECFIDERA) [address] 180 capsule 2 Sig: TAKE 1 CAPSULE BY MOUTH 2 TIMES A DAY Authorizing Provider: DARLINE NORTH Ordering User: TELLO SLAUGHTER PA-C * Telephone Encounter - Sophia Johnson - 12/20/2021 7:40 AM EDT Source : electronic from pharmacy requesting refill. Delivery : e-script Requested Prescriptions Pending Prescriptions Disp Refills dimethyl fumarate (TECFIDERA) [address] [Pharmacy Med Name: DIMETHYL FUMARATE DR 240MG] 180capsule 2 Sig: TAKE 1 CAPSULE BY MOUTH 2 TIMES A DAY DX : Patient last seen: 07/04/2021 Next Appointment : 01/08/2022 Sophia Johnson documented in this encounterCity Hospital09-12-2022 History of Present illness Narrative* Bev Cartwright RT(R) - 12/24/2021 11:50 AM EDT Radiology Service Progress Note PATIENT NAME: Juanita Jay DATE OF SERVICE: December 24, 2021 TIME: 11:47 AM PATIENT IDENTITY VERIFICATION COMPLETED USING TWO (2) IDENTIFIERS: Name and Date of confirmedby patient verbally. FALL SCREENING: Has the patient had 2 falls in the last year or 1 fall with injury or currently using an Ambulatory Assistive Device (Walker, Cane, Wheelchair, Crutches, etc.)? No PATIENT GENDER DATA: Male PATIENT RELEVANT IMPLANT DATA REVIEWED: Yes RADIOLOGY DEPARTMENT: General X-ray: Exam(s) Completed: Upper Extremity X- Ray(s): Shoulder, AP / TRUE AP / AXILLARY right PERIPHERAL IV DATA: Not applicable SIGNED BY: RT Benita(R) December 24, 2021 11:47 AM documented in this encounterCity Hospital07-27-2022 Miscellaneous Notes* Telephone Encounter - Tello Slaughter PA-C - 11/07/2021 10:21 AM EDT The following approved medication requests have been transmitted electronically. Signed Prescriptions Disp Refills baclofen (LIORESAL) 10 mg tablet 90 tablet 1 Sig: TAKE 1 TABLET BY MOUTH EVERYDAY AT BEDTIME TORI: No Authorizing Provider: TELLO SLAUGHTER PA-C * Telephone Encounter - Sophia Johnson - 11/07/2021 9:20 AM EDT Source : electronic from pharmacy requesting refill. Delivery : e-script Pending Prescriptions Disp Refills BACLOFEN 10 MG TABLET 90 tablet 1 Sig: TAKE 1 TABLET BY MOUTH EVERYDAY AT BEDTIME TORI: Yes DX : Patient last seen: 07/04/2021 Next Appointment : 01/08/2022 Sophia Johnson documented in this encounterCity Hospital07-22-2022 History of Present illness Narrative* Dianne Leigh PA-C - 11/02/2021 10:33 AM EDT Images from the original note were not included. This note was created using [employer]. Subjective Juanita Jay is a 66 year old male. HPI Patient presents with an itchy rash on his bilateral forearms over the past 3 weeks. He thought initially it could be poison conner but did not really look like that. He states it still continues to spread. He denies history of psoriasis or eczema. He does have MS and is on medication for seizures as well. He states those have not changed recently. He was on baclofen starting in June but stopped that and the rash still continues. He denies any new lotions or soaps. No new medications. No one elsearound him has the rash. No fevers or chills. Review of Systems Constitutional: Negative. HENT: Negative. Respiratory: Negative. Cardiovascular: Negative. Gastrointestinal: Negative. Skin: Positive for rash. All other systems reviewed and are negative. PAST MEDICAL HISTORY Diagnosis Date Leptospirosis ~1991 MS (multiple sclerosis) ([facility]) 2006 Seizures ([facility]) Current Outpatient Medications Medication Sig Dispense Refill ASPIRIN ORAL Take by mouth. For body aches citalopram (CELEXA) 40 mg tablet Take 1 tablet by mouth once daily. 90 tablet 3 zonisamide (ZONEGRAN) 100 mg capsule Take 200 mg am and 300 mg pm 450 capsule 3 dimethyl fumarate (TECFIDERA) [address] TAKE 1 CAPSULE BY MOUTH 2 TIMES A DAY 180 capsule 5 sildenafil (REVATIO) 20 mg tablet 1-2 TABS NEEDED 30-60 MINUTES PRIOR TO SEXUAL INTERCOURSE 90 tablet 0 cephALEXin (KEFLEX) 500 mg capsule Take 1 capsule by mouth twice daily. 20 capsule 0 ergocalciferol 50,000 unit capsule (VITAMIN D2, DRISDOL) Take 1 capsule by mouth one time a week. 12 capsule 0 naproxen sodium(ALEVE 220 MG TAB) as needed 30 0 multivitamins w-minerals/lut(CENTRUM SILVER TAB) Take one daily 30 0 predniSONE (DELTASONE) 10 mg tablet Take 4 tabs daily for 3 days, then 2 tabs daily for 3 days, then 1 tab daily for 3 days with food. 21 tablet 0 baclofen (LIORESAL) 10 mg tablet Take 1 tablet by mouth daily at bedtime. (Patient not taking: Reported on 11/02/2021 ) 30 tablet 5 aspirin, enteric coated (ADULT LOW DOSE ASPIRIN) 81 mg EC tablet Take 1 tablet by mouth once daily.(Patient taking differently: Take 81 mg by mouth as needed. ) No current facility-administered medications for this visit. PAST SURGICAL HISTORY Procedure Laterality Date PARTIAL SPLENECTOMY PAST SURGICAL HISTORY OF 1972 Splenectomy [place] [facility] post trauma FAMILY HISTORY Problem Relation Age of Onset Stroke Father Cancer Mother Bone Social History Tobacco Use Smoking status: Former Smoker Types: Cigarettes Smokeless tobacco: Never Used Tobacco comment: Quit smoking 2008. Substance Use Topics Alcohol use: No Drug use: No Objective BP 118/68 Pulse 70 Temp 37 C (98.6 F) Resp 18 SpO2 98% Physical Exam Vitals reviewed. Constitutional: Appearance: Normal appearance. HENT: Head: Normocephalic and atraumatic. Skin: General: Skin is warm and dry. Comments: Patient has erythematous raised rash in large patch on both forearms with central pigmentloss. There is some crusting. Small patches on the hands bilaterally and extending up the elbow minimally. No vesicles. No petechia or purpura. Neurological: Mental Status: He is alert. Assessment and Plan ASSESSMENT/PLAN: 1. Dermatitis - ICD9: 692.9, ICD10: L30.9 Will trial prednisone, recommended follow-up with dermatology. Given referral to [facility]. Patient wanted to stay in [facility]. - CONSULT TO DERMATOLOGY Dianne Leigh PA-C documented in this encounterCity Hospital07-21-2022 NoteHNO ID: [id number] Author: Kailey Lebron PT, LUTHER Service: ? Author Type: Physical Therapist Type: Progress Notes Filed: 11/01/2021 8:29 AM Note Text: Episode Visit Count: 8 Therapist That Will Oversee The Plan Of Care: Kailey Lebron Start of Care Date: 08/15/21 Onset Date: 08/15/20 Plan of Care Certification Date: 10/14/21 Next Certification Due Date: 12/11/21 REHABILITATION AND SPORTS THERAPY PHYSICAL THERAPY TREATMENT NOTE ASSESSMENT: Juanita Jay tolerated the session with no issues. He demonstrated challenge with dynamic balance challenge without support. Most LOB occur in posterior direction. Good tolerance for more challenge ex however and no fatigue noted by end of session. The patient will continue to benefit from ongoing skilled physical therapy to progress toward set goals. PLAN FOR NEXT VISIT: Add foam balance. Further LE coordination/targeting SUBJECTIVE: Patient Reason for Visit: No issues since last here. Doing okay with increased heat. Pain: Pain Pain Level: 0 Post Treatment Pain Post Treatment Pain Level: 0 OBJECTIVE MEASURES WITH LEVEL OF FUNCTION: SBA/CGA for balance work TREATMENT: Therapeutic Exercise: 1: Nustep, Seat 12, Level 5, LE only, x 7 min; education on goals, review of HEP, education on 2 hour rule 3: Repeated sit to stand from chair working on fwd lean x 10 4: Standing R hip flex 2.5# x 10 5: Standing R hip abd x 10 2.5# 6: tband ev green x 10 7: tband inv green x 10 Skilled Intervention: Proper selection of treatments for this session based on clinical presentation, deficits, and needs. Patient educated on technique for exercises/activities performed this session. Proper patient guarding to prevent falls/increase patient safety. Monitored recovery time provided. Neuromuscular Re-Education: 3: Static: tandem stance; perturbations 7: Dynamic: fwd alt stepping; lateral stepping; alt 2'' step taps Skilled Intervention: Billing Therapeutic Exercise Treatment Minutes: 25 Neuromuscular Re-Education Treatment Minutes: 15 Total Treatment Time Minutes (timed/untimed): 41 Kailey Lebron PT, [facility]Bet[facility] [id number] History of Present illness Narrative* Kailey Lebron PT, REIDT - 11/01/2021 7:51 AM EDT Episode Visit Count: 8 Therapist That Will Oversee The Plan Of Care: Kailey Lebron Start of Care Date: 08/15/21 Onset Date: 08/15/20 Plan of Care Certification Date: 10/14/21 Next Certification Due Date: 12/11/21 REHABILITATION AND SPORTS THERAPY PHYSICAL THERAPY TREATMENT NOTE ASSESSMENT: Juanita Jay tolerated the session with no issues. He demonstrated challenge with dynamic balance challenge without support. Most LOB occur in posterior direction. Good tolerance for more challenge ex however and no fatigue noted by end of session. The patient will continue to benefit from ongoing skilled physical therapy to progress toward set goals. PLAN FOR NEXT VISIT: Add foam balance. Further LE coordination/targeting SUBJECTIVE: Patient Reason for Visit: No issues since last here. Doing okay with increased heat. Pain: Pain Pain Level: 0 Post Treatment Pain Post Treatment Pain Level: 0 OBJECTIVE MEASURES WITH LEVEL OF FUNCTION: SBA/CGA for balance work TREATMENT: Therapeutic Exercise: 1: Nustep, Seat 12, Level 5, LE only, x 7 min; education on goals, review of HEP, education on 2 hour rule 3: Repeated sit to stand from chair working on fwd lean x 10 4: Standing R hip flex 2.5# x 10 5: Standing R hip abd x 10 2.5# 6: tband ev green x 10 7: tband inv green x 10 Skilled Intervention: Proper selection of treatments for this session based on clinical presentation, deficits, and needs. Patient educated on technique for exercises/activities performed this session. Proper patient guarding to prevent falls/increase patient safety. Monitored recovery time provided. Neuromuscular Re-Education: 3: Static: tandem stance; perturbations 7: Dynamic: fwd alt stepping; lateral stepping; alt 2'' step taps Skilled Intervention: Billing Therapeutic Exercise Treatment Minutes: 25 Neuromuscular Re-Education Treatment Minutes: 15 Total Treatment Time Minutes (timed/untimed): 41 Kailey Lebron PT, DPT [facility] NoteHNO ID: [id number] Author: Kailey Lebron PT, DPT Service: ? Author Type: Physical Therapist Type: Progress Notes Filed: 10/24/2021 10:46 AM Note Text: Episode Visit Count: 7 Therapist That Will Oversee The Plan Of Care: Kailey Lebron Start of Care Date: 08/15/21 Onset Date: 08/15/20 Plan of Care Certification Date: 10/14/21 Next Certification Due Date: 12/11/21 Patient Identified by Name and Date of : Yes REHABILITATION AND SPORTS THERAPY PHYSICAL THERAPY PROGRESS REPORT PLAN OF CARE UPDATE: Assessment: Juanita Jay demonstrates improvements in rising from a chair, standing and walking. He hasmet 1 goals and progressed toward goals. Patient continues to present with impairments in balance, coordination, flexibility, gait and strength that interfere with walking;standing;rising from a chair;physical activities;Comments Notes improved bending over with balance. Current prognosis is Good due to: current objective clinical presentation;good overall health status Fair due to: chronic nature of impairments . He will benefit from continued skilled therapy services to meet the updated goals for this plan of care as noted below. Goals for Episode of Care: updated 10/24/2021 Patient will increase strength of B LE to grossly 5/5 to allow patient to improve gait mechanics/gait pattern. --progressing Patient will increase flexibility of R gastroc to 10 degrees to improve mechanics for gait. --progressing Patient will perform sit to stand transfers with modified independence without need for UE assist for 1 rep. --MET Patient will ambulate with least restrictive device with modified independence and improved ERIKA. --mildly progressing Patient demonstrates independent and proper use of assistive device to allow for improved walking quality and safety therefore reducing the risk of falls. -MET Improve five time sit to stand to <11.5 seconds WITH hands to decrease risk of falls and (evaluation: 13.9 seconds).--progressing slowly Patient will complete 12 reps on 30 second chair stand test WITH hands to decrease risk of falls. --not met Improve score on Timed Up and Go to by 3 sec to demonstrate MCID. ----not met Improve score on Royal Balance Scale to >46/56 to decrease fall risk with Device. --progressing Improve tandem stance on 4 stage balance test to = or >10 seconds to decrease risk for falls. --mild progression Planned Interventions, Frequency, and Duration: 1x/week, 4 weeks Total Number of Visits Planned: 4 Patient to be seen for Therapeutic exercise (21618);Neuromuscular re-education (35869);Manual therapy (84047);Therapeutic activities (02275);Self-snf management (89014);Gait Training (86488);Patient/Family/Caregiver Education PLAN FOR NEXT VISIT: Further standing balance SUBJECTIVE: Patient Reason for Visit: Had a cold since last here (Cancelled last visit as a result). No falls. Functional Limitations: walking;standing;rising from a chair;physical activities;Comments Functional Limitation Comments: Notes improved bending over with balance Pain: Pain Pain Level: 0 Post Treatment Pain Post Treatment Pain Level: 0 PROMIS Scales Higher is Better 10/09/2021 10/09/2021 10/16/2021 Phys Func - Score - - 43 (mild dysfunction) Phys Func - Percentile - - 24 % Social Roles - Score - - 45 (within normal limits) Social Role - Percentile - - 31 % GH Physical - Score - 37.4 (Fair) - GH Physical - Percentile 10 % 10 % - GH Mental - Score - 45.8 (Good) - GH Mental - Percentile 34 % 34 % - Self-Eff Symptom - Score - - 49 (Average) Self-Eff Symptom - Percentile - - 46 % T-scores: mean of general population = 50. 5 points is clinically meaningfully difference Percentiles provide an indication of how the patient's score ranks in relation to the general population. Higher percentile rankings indicate better function/quality of life. 50th percentile is the average of the general population and indicates half of respondents had a worse score. Lower is Better 08/15/2021 09/18/2021 10/16/2021 Fatigue - Score 42 (within normal limits) 49 (within normal limits) 47 (within normal limits) Fatigue - Percentile 79 % 54 % 62 % T-scores: mean of general population = 50. 5 points is clinically meaningfully difference Percentiles provide an indication of how the patient's score ranks in relation to the general population. Higher percentile rankings indicate better function/quality of life. 50th percentile is the average of the general population and indicates half of respondents had a worse score. OBJECTIVE MEASURES WITH LEVEL OF FUNCTION: LE Flexibility R Gastrocnemius Flexibility: 6 L Gastrocnemius Flexibility: 13 LE Strength R Hip Flexion (L2): 4+/5 R Hip ABduction: 4+/5 R Knee Flexion: 4+/5 R Ankle Dorsiflexion (L4): 5/5 R Ankle Inversion: 4+/5 R Ankle Eversion: 4+/5 Tone R Plantarflexor: 1: Slight increase in tone (catch and release a (more content not included)...[id number] of Present illness Narrative* Kailey Lebron, PT, DPT - 10/24/2021 9:41 AM EDT Episode Visit Count: 7 Therapist That Will Oversee The Plan Of Care: Kailey Lebron Start of Care Date: 08/15/21 Onset Date: 08/15/20 Plan of Care Certification Date: 10/14/21 Next Certification Due Date: 12/11/21 Patient Identified by Name and Date of : Yes REHABILITATION AND SPORTS THERAPY PHYSICAL THERAPY PROGRESS REPORT PLAN OF CARE UPDATE: Assessment: Juanita Jay demonstrates improvements in rising from a chair, standing and walking.He hasmet 1 goals and progressed toward goals. Patient continues to present with impairments in balance, coordination, flexibility, gait and strength that interfere with walking;standing;rising from a chair;physical activities;Comments Notes improved bending over with balance. Current prognosis is Good due to: current objective clinical presentation;good overall health status Fair due to: chronic nature of impairments . He will benefit from continued skilled therapy services to meet the updated goals for this plan of care as noted below. Goals for Episode of Care: updated 10/24/2021 Patient will increase strength of B LE to grossly 5/5 to allow patient to improve gait mechanics/gait pattern. --progressing Patient will increase flexibility of R gastroc to 10 degrees to improve mechanics for gait. --progressing Patient will perform sit to stand transfers with modified independence without need for UE assist for 1 rep. --MET Patient will ambulate with least restrictive device with modified independence and improved ERIKA. --mildly progressing Patient demonstrates independent and proper use of assistive device to allow for improved walking quality and safety therefore reducing the risk of falls. -MET Improve five time sit to stand to <11.5 seconds WITH hands to decrease risk of falls and (evaluation: 13.9 seconds).--progressing slowly Patient will complete 12 reps on 30 second chair stand test WITH hands to decrease risk of falls. --not met Improve score on Timed Up and Go to by 3 sec to demonstrate MCID. ----not met Improve score on Royal Balance Scale to >46/56 to decrease fall risk with Device. --progressing Improve tandem stance on 4 stage balance test to = or >10 seconds to decrease risk for falls. --mild progression Planned Interventions, Frequency, and Duration: 1x/week, 4 weeks Total Number of Visits Planned: 4 Patient to be seen for Therapeutic exercise (56360);Neuromuscular re-education (71734);Manual therapy (83960);Therapeutic activities (51527);Self-snf management (44510);Gait Training (39749);Patient/Family/Caregiver Education PLAN FOR NEXT VISIT: Further standing balance SUBJECTIVE: Patient Reason for Visit: Had a cold since last here (Cancelled last visit as a result). No falls. Functional Limitations: walking;standing;rising from a chair;physical activities;Comments Functional Limitation Comments: Notes improved bending over with balance Pain: Pain Pain Level: 0 Post Treatment Pain Post Treatment Pain Level: 0 PROMIS Scales Higher is Better 10/09/2021 10/09/2021 10/16/2021 Phys Func - Score - - 43 (mild dysfunction) Phys Func - Percentile - - 24 % Social Roles - Score - - 45 (within normal limits) Social Role - Percentile - - 31 % GH Physical - Score - 37.4 (Fair) - GH Physical - Percentile 10 % 10 % - GH Mental - Score - 45.8 (Good) - GH Mental - Percentile 34 % 34 % - Self-Eff Symptom - Score - - 49 (Average) Self-Eff Symptom - Percentile - - 46 % T-scores: mean of general population = 50. 5 points is clinically meaningfully difference Percentiles provide an indication of how the patient's score ranks in relation to the general population. Higher percentile rankings indicate better function/quality of life. 50th percentile is the average of the general population and indicates half of respondents had a worse score. Lower is Better 08/15/2021 09/18/2021 10/16/2021 Fatigue - Score 42 (within normal limits) 49 (within normal limits) 47 (within normal limits) Fatigue - Percentile 79 % 54 % 62 % T-scores: mean of general population = 50. 5 points is clinically meaningfully difference Percentiles provide an indication of how the patient's score ranks in relation to the general population. Higher percentile rankings indicate better function/quality of life. 50th percentile is the average of the general population and indicates half of respondents had a worse score. OBJECTIVE MEASURES WITH LEVEL OF FUNCTION: LE Flexibility R Gastrocnemius Flexibility: 6 L Gastrocnemius Flexibility: 13 LE Strength R Hip Flexion (L2): 4+/5 R Hip ABduction: 4+/5 R Knee Flexion: 4+/5 R Ankle Dorsiflexion (L4): 5/5 R Ankle Inversion: 4+/5 R Ankle Eversion: 4+/5 Tone R Plantarflexor: 1: Slight increase in tone (catch and release at end of ROM) Movement Description Finger to Nose Impairment: (WNL) Rapid Alternating Movements Impairment: Left Mobility Sit To Stand: Modified Independent Gait Gait: Stand By Assistance Gait Device: Cane Gait Deviations: General Deviations General Deviations/Observations: Ataxic gait;Wide base of support;Step length decreased Gait Observation: Decreased R DF Functional Performance Test Results 30 Second Chair Stand Test: 9 reps (multiple others with inability to fully stand and losing balance into chair; 11 reps with hands) 5 Times Sit to Stand Test : 16 sec Timed Up and Go (sec): 12.5 sec 4 Stage Balance Test Tandem base of support (sec): 3 sec Royal Balance Scale Sit to stand : 3 - Able to stand independently using hands Standing unsupported : 4 - Able to stand safety 2 min Sitting : 4 - Able to sit safety and securely for 2 min Stand to sit: 4 - Sits safey minimal use of hands Transfers: 3 - Able to transfer safety definite need of hands Standing unsupported with eyes closed : 4 - Able to stand 10 sec safely Standing unsupported with feet together : 4 - Able to place feet together independently and stand 1min safely Reaching forward : 4 - Can reach forward confidently >10 inches Picking up object from floor : 4 - Able to warp picker object safely and easily Looking over shoulder: Looks behind from both sides and weight shifts well Turn 360 degrees : 1 - Needs close supervision or verbal cueing Alternate foot on step: 2 - Able to complete 4 steps without aid with supervision Tandem standing : 2 - Able to take small step independently and hold 30 sec Standing on leg : 1 - Tries to lift leg unable to hold 3 sec but remains standing independently Royal Balance Test Total (calculated): 44 TREATMENT: Therapeutic Exercise: 2: Reassessment completed Skilled Intervention: Proper technique & skills to assess ROM & strength to properly adjustplan of care. Neuromuscular Re-Education: 2: Outcomes completed 4: Jagex Balance: Postural Stability Training: holding midline target x 1 min: no hands: 175/200; 2nd trail: 198/200; level 12 B hands: 200/200; level 12 R hand only: 200/200; level 12 no hands (butdoes need occasional support): 195/200 5: Biodex balnace weight shift training horizontal narrow spacing: B hands with narrow spacin%; R hand only narrow spacin%; no hands: 93% (sound on, 30 passes) 6: Biodex balnace weight shift training vertical: B hands: 100%; R hand only: 97%; no hands: 90% (sound on, 30 passes) Skilled Intervention: Proper implementation of objective outcomes with explanation of findings/deficits. Proper patient guarding to prevent falls/increase patient safety. Proper selection of treatments for this session based on clinical presentation, deficits, and needs. Billing Therapeutic Exercise Treatment Minutes: 10 Neuromuscular Re-Education Treatment Minutes: 32 Total Treatment Time Minutes (timed/untimed): 44 Kailey Lebron PT, DPT documented in [facility]City [facility]06-30-[facility]22 NoteHNO ID: [id number] Author: Kailey Lebron PT, DPT Service: ? Author Type: Physical Therapist Type: Progress Notes Filed: 10/11/2021 11:28 AM Note Text: Episode Visit Count: 6 Therapist That Will Oversee The Plan Of Care: Kailey Lebron Start of Care Date: 08/15/21 Onset Date: 08/15/20 Plan of Care Certification Date: 08/15/21 Next Certification Due Date: 10/14/21 Patient Identified by Name and Date of : Yes REHABILITATION AND SPORTS THERAPY PHYSICAL THERAPY TREATMENT NOTE ASSESSMENT: Juanita Jay tolerated the session with no issues. He demonstrated overall good performance and scores on Biodex machine with only slight decline in scores without UE or less UE support. The patient will continue to benefit from ongoing skilled physical therapy to progress toward set goals. PLAN FOR NEXT VISIT: Further standing balance work. Assist ankle ROM vs spasticty vs strength next visit SUBJECTIVE: Patient Reason for Visit: [place] really good after yesterdays session. Pain: Pain Pain Level: 0 Post Treatment Pain Post Treatment Pain Level: 0 OBJECTIVE MEASURES WITH LEVEL OF FUNCTION: SBA to CGA for balance work TREATMENT: Therapeutic Exercise: 1: Nustep, Seat 12, Level 4, LE only, x 7 min; education on goals, review of HEP, education on 2 hour rule Skilled Intervention: Proper selection of treatments for this session based on clinical presentation, deficits, and needs. Patient educated on technique for exercises/activities performed this session. Set up time. Cues for speed. Hx taken while on NuStep. Neuromuscular Re-Education: 3: Seated coordination: alt DF; alt PF; alt and reciprocal DF/PF 4: Biodex Balance: Postural Stability Training: holding midline target x 1 min: B hands: 195/200; R hand only: 194/200; no hands: 198/200 5: Biodex balnace weight shift training horizontal: B hands: 100%; R hand only: 100%; no hands: 93% (sound on, 30 passes) 6: Biodex balnace weight shift training vertical: B hands: 100%; R hand only: 97%; no hands: 90% (sound on, 30 passes) Skilled Intervention: Proper selection of treatments for this session based on clinical presentation, deficits, and needs. Patient educated on technique for exercises/activities performed this session. Proper patient guarding to prevent falls/increase patient safety. Billing Therapeutic Exercise Treatment Minutes: 8 Neuromuscular Re-Education Treatment Minutes: 35 Total Treatment Time Minutes (timed/untimed): 43 Kailey Lebron PT, REIDSelect [facility] [id number] History of Present illness Narrative* Kailey Lebron PT, T - 10/11/2021 11:02 AM EDT Episode Visit Count: 6 Therapist That Will Oversee The Plan Of Care: Kailey Lebron Start of Care Date: 08/15/21 Onset Date: 08/15/20 Plan of Care Certification Date: 08/15/21 Next Certification Due Date: 10/14/21 Patient Identified by Name and Date of : Yes REHABILITATION AND SPORTS THERAPY PHYSICAL THERAPY TREATMENT NOTE ASSESSMENT: Juanita Jay tolerated the session with no issues. He demonstrated overall good performance and scores on Biodex machine with only slight decline in scores without UE or less UE support. The patient will continue to benefit from ongoing skilled physical therapy to progress toward set goals. PLAN FOR NEXT VISIT: Further standing balance work. Assist ankle ROM vs spasticty vs strength next visit SUBJECTIVE: Patient Reason for Visit: [place] really good after yesterdays session. Pain: Pain Pain Level: 0 Post Treatment Pain Post Treatment Pain Level: 0 OBJECTIVE MEASURES WITH LEVEL OF FUNCTION: SBA to CGA for balance work TREATMENT: Therapeutic Exercise: 1: Nustep, Seat 12, Level 4, LE only, x 7 min; education on goals, review of HEP, education on 2 hour rule Skilled Intervention: Proper selection of treatments for this session based on clinical presentation, deficits, and needs. Patient educated on technique for exercises/activities performed this session. Set up time. Cues for speed. Hx taken while on NuStep. Neuromuscular Re-Education: 3: Seated coordination: alt DF; alt PF; alt and reciprocal DF/PF 4: Biodex Balance: Postural Stability Training: holding midline target x 1 min: B hands: 195/200; Rhand only: 194/200; no hands: 198/200 5: Biodex balnace weight shift training horizontal: B hands: 100%; R hand only: 100%; no hands: 93%(sound on, 30 passes) 6: Biodex balnace weight shift training vertical: B hands: 100%; R hand only: 97%; no hands: 90% (sound on, 30 passes) Skilled Intervention: Proper selection of treatments for this session based on clinical presentation, deficits, and needs. Patient educated on technique for exercises/activities performed this session. Proper patient guarding to prevent falls/increase patient safety. Billing Therapeutic Exercise Treatment Minutes: 8 Neuromuscular Re-Education Treatment Minutes: 35 Total Treatment Time Minutes (timed/untimed): 43 Kailey Lebron PT, DPT documented in this encounterCity [facility]06-29-2022 NoteHNO ID: [id number] Author: Kailey Lebron PT, DPT Service: ? Author Type: Physical Therapist Type: Progress Notes Filed: 10/10/2021 12:28 PM Note Text: Episode Visit Count: 5 Therapist That Will Oversee The Plan Of Care: Kailey Lebron Start of Care Date: 08/15/21 Onset Date: 08/15/20 Plan of Care Certification Date: 08/15/21 Next Certification Due Date: 10/14/21 Patient Identified by Name and Date of : Yes REHABILITATION AND SPORTS THERAPY PHYSICAL THERAPY TREATMENT NOTE ASSESSMENT: Juanita aJy tolerated the session with no issues. He demonstrated much more difficulty with half kneel positoin with WB onto R knee on table. Seems less fatigue with quadriped/tall kneel work today vs last visit. The patient will continue to benefit from ongoing skilled physical therapy to progress toward set goals. PLAN FOR NEXT VISIT: Seated coordination work. Self ball toss. Standing Biodex. SUBJECTIVE: Patient Reason for Visit: Had to cancel last 2 visits due to having to go to [place] (nephew was in the hospital). Pain: Pain Pain Level: 0 Post Treatment Pain Post Treatment Pain Level: 0 OBJECTIVE MEASURES WITH LEVEL OF FUNCTION: TREATMENT: Therapeutic Exercise: 1: Nustep, Seat 12, Level 4, LE only, x 7 min; education on goals, review of HEP, education on 2 hour rule 4: Quadriped fwd/bkwd rocks x 10 5: Quadriped to tall kneel x 10, 3 sec hold at tall kneel. 6: Tall kneel B shoulder flex x 10 7: Half kneel with hands to half kneel without hands 8: Quadriped fwd/bkwd rocking x 10 9: tall kneel fwd/bkwd rocks x 10 10: Seated bkwd leans x 10 11: Seated core ball flex to 90, 6# x 10 Skilled Intervention: Proper selection of treatments for this session based on clinical presentation, deficits, and needs. Patient educated on technique for exercises/activities performed this session. Proper patient guarding to prevent falls/increase patient safety. Monitored recovery time provided. Billing Therapeutic Exercise Treatment Minutes: 40 Total Treatment Time Minutes (timed/untimed): 41 Kailey Lebron PT, REIDSelect [facility] [id number] History of Present illness Narrative* Kailey Lebron PT, DPT - 10/10/2021 10:45 AM EDT Episode Visit Count: 5 Therapist That Will Oversee The Plan Of Care: Kailey Lebron Start of Care Date: 08/15/21 Onset Date: 08/15/20 Plan of Care Certification Date: 08/15/21 Next Certification Due Date: 10/14/21 Patient Identified by Name and Date of : Yes REHABILITATION AND SPORTS THERAPY PHYSICAL THERAPY TREATMENT NOTE ASSESSMENT: Juanita Jay tolerated the session with no issues. He demonstrated much more difficulty with half kneel positoin with WB onto R knee on table. Seems less fatigue with quadriped/tall kneel work today vs last visit. The patient will continue to benefit from ongoing skilled physical therapy to progress toward set goals. PLAN FOR NEXT VISIT: Seated coordination work. Self ball toss. Standing Biodex. SUBJECTIVE: Patient Reason for Visit: Had to cancel last 2 visits due to having to go to [place] (nephewwas in the hospital). Pain: Pain Pain Level: 0 Post Treatment Pain Post Treatment Pain Level: 0 OBJECTIVE MEASURES WITH LEVEL OF FUNCTION: TREATMENT: Therapeutic Exercise: 1: Nustep, Seat 12, Level 4, LE only, x 7 min; education on goals, review of HEP, education on 2 hour rule 4: Quadriped fwd/bkwd rocks x 10 5: Quadriped to tall kneel x 10, 3 sec hold at tall kneel. 6: Tall kneel B shoulder flex x 10 7: Half kneel with hands to half kneel without hands 8: Quadriped fwd/bkwd rocking x 10 9: tall kneel fwd/bkwd rocks x 10 10: Seated bkwd leans x 10 11: Seated core ball flex to 90, 6# x 10 Skilled Intervention: Proper selection of treatments for this session based on clinical presentation, deficits, and needs. Patient educated on technique for exercises/activities performed this session. Proper patient guarding to prevent falls/increase patient safety. Monitored recovery time provided. Billing Therapeutic Exercise Treatment Minutes: 40 Total Treatment Time Minutes (timed/untimed): 41 Kailey Lebron, PT, DPT documented in this encounterCity [facility]06-15-[facility]22 History of Present illness Narrative* Sophia Johnson - 09/26/2021 7:41 AM EDT Per patient request, mailed out 2 handicap placard scripts to patient as directed. documented in this encounterCity [facility]06-09-2022 NoteHNO ID: [id number] Author: Kailey Lebron PT, DPT Service: ? Author Type: Physical Therapist Type: Progress Notes Filed: 09/20/2021 12:20 PM Note Text: Episode Visit Count: 4 Therapist That Will Oversee The Plan Of Care: Kailey Lebron Start of Care Date: 08/15/21 Onset Date: 08/15/20 Plan of Care Certification Date: 08/15/21 Next Certification Due Date: 10/14/21 Patient Identified by Name and Date of : Yes REHABILITATION AND SPORTS THERAPY PHYSICAL THERAPY TREATMENT NOTE ASSESSMENT: Juanita Jay tolerated the session with fatigue. He demonstrated need for multiple rest breaks during session due to fatigue but more whole body ex completed today. The patient will continue to benefit from ongoing skilled physical therapy to progress toward set goals. PLAN FOR NEXT VISIT: Further coordination, LE strength, and balance SUBJECTIVE: Patient Reason for Visit: wasn't home this week so couldn't do new HEP. Pain: Pain Pain Level: 0 Post Treatment Pain Post Treatment Pain Level: 0 OBJECTIVE MEASURES WITH LEVEL OF FUNCTION: Movement Description Ataxia Comments: noted in gait and exercise TREATMENT: Therapeutic Exercise: 1: Nustep, Seat 12, Level 4, LE only, x 7 min; education on goals, review of HEP, education on 2 hour rule 3: Hooklying with red stability ball: fwd/bkwd rolls x 15; side to side rolls x 15; alt SLR x 15 each; bridge x 15; isometric hs curl x 15 B 4: Quadriped with abdominal brace: alt UE flex x 10 each; fwd/bkwd rocks x [address]; alt LE kicks x 10 each; bird dog x 10 (SBA) 5: Quadriped to tall kneel x 10, 3 sec hold at tall kneel. 6: PWR step x 3 each alt; discontinued due to fatigue Skilled Intervention: Proper selection of treatments for this session based on clinical presentation, deficits, and needs. Patient educated on technique for exercises/activities performed this session. Proper patient guarding to prevent falls/increase patient safety. Billing Therapeutic Exercise Treatment Minutes: 40 Total Treatment Time Minutes (timed/untimed): 42 Kailey Lebron PT, AMADOUBethesda North [id number] History of Present illness Narrative* Kailey Lebron PT, DPT - 09/20/2021 10:28 AM EDT Episode Visit Count: 4 Therapist That Will Oversee The Plan Of Care: Kailey Lebron Start of Care Date: 08/15/21 Onset Date: 08/15/20 Plan of Care Certification Date: 08/15/21 Next Certification Due Date: 10/14/21 Patient Identified by Name and Date of : Yes REHABILITATION AND SPORTS THERAPY PHYSICAL THERAPY TREATMENT NOTE ASSESSMENT: Juanita Jay tolerated the session with fatigue. He demonstrated need for multiple rest breaks during session due to fatigue but more whole body ex completed today. The patient will continue to benefit from ongoing skilled physical therapy to progress toward set goals. PLAN FOR NEXT VISIT: Further coordination, LE strength, and balance SUBJECTIVE: Patient Reason for Visit: wasn't home this week so couldn't do new HEP. Pain: Pain Pain Level: 0 Post Treatment Pain Post Treatment Pain Level: 0 OBJECTIVE MEASURES WITH LEVEL OF FUNCTION: Movement Description Ataxia Comments: noted in gait and exercise TREATMENT: Therapeutic Exercise: 1: Nustep, Seat 12, Level 4, LE only, x 7 min; education on goals, review of HEP, education on 2 hour rule 3: Hooklying with red stability ball: fwd/bkwd rolls x 15; side to side rolls x 15; alt SLR x 15 each; bridge x 15; isometric hs curl x 15 B 4: Quadriped with abdominal brace: alt UE flex x 10 each; fwd/bkwd rocks x [address]; alt LE kicks x 10 each; bird dog x 10 (SBA) 5: Quadriped to tall kneel x 10, 3 sec hold at tall kneel. 6: PWR step x 3 each alt; discontinued due to fatigue Skilled Intervention: Proper selection of treatments for this session based on clinical presentation, deficits, and needs. Patient educated on technique for exercises/activities performed this session. Proper patient guarding to prevent falls/increase patient safety. Billing Therapeutic Exercise Treatment Minutes: 40 Total Treatment Time Minutes (timed/untimed): 42 Kailey Lebron PT, DPT documented [facility]City [facility]22 NoteHNO ID: [id number] Author: Kailey Lebron, PT, DPT Service: ? Author Type: Physical Therapist Type: Progress Notes Filed: 09/18/2021 11:31 AM Note Text: Episode Visit Count: 3 Therapist That Will Oversee The Plan Of Care: Kailey Lebron Start of Care Date: 08/15/21 Onset Date: 08/15/20 Plan of Care Certification Date: 08/15/21 Next Certification Due Date: 10/14/21 Patient Identified by Name and Date of : Yes REHABILITATION AND SPORTS THERAPY PHYSICAL THERAPY PROGRESS REPORT PLAN OF CARE UPDATE: Assessment: Juanita Jay demonstrates moderate improvement in rising from a chair, standing, walking and physical activities. He hasmet multiple goals. Patient continues to present with impairments in balance, coordination, flexibility, gait, overall function and strength that interfere with walking;standing;rising from a chair;physical activities (Notes a little better with sit to stand) . Current prognosis is Good due to: current objective clinical presentation;good overall health status Fair due to: chronic nature of impairments . He will benefit from continued skilled therapy services to meet the updated goals for this plan of care as noted below. Goals for Episode of Care: updated 09/18/2021 Patient will increase strength of B LE to grossly 5/5 to allow patient to improve gait mechanics/gait pattern. --progressing Patient will increase flexibility of R gastroc to 10 degrees to improve mechanics for gait. --mild progression Patient will increase flexibility of R hamstring to 65 degrees to improve mechanics for gait.--MET Patient will perform sit to stand transfers with modified independence without need for UE assist for 1 rep. Patient will ambulate with least restrictive device with modified independence and improved ERIKA. --mildly progressing Patient will demonstrate current home exercise program independently. --MET Patient demonstrates independent and proper use of assistive device to allow for improved walking quality and safety therefore reducing the risk of falls. -progressing Improve five time sit to stand to <11.5 seconds WITH hands to decrease risk of falls and (evaluation: 13.9 seconds).--mild progression; currently 13.3 Patient will complete 12 reps on 30 second chair stand test WITH hands to decrease risk of falls. --not met Improve score on Timed Up and Go to by 3 sec to demonstrate MCID. --mild progression; improved by half second Improve score on Royal Balance Scale to >35/56 to decrease fall risk with Device. --MET Improve score on Royal Balance Scale to >46/56 to decrease fall risk with Device. --new goal Improve tandem stance on 4 stage balance test to = or >10 seconds to decrease risk for falls. --progressing; improved from 2 to 6 sec Planned Interventions, Frequency, and Duration: 1x/week, 4 weeks Total Number of Visits Planned: 4 Patient to be seen for Therapeutic exercise (57169);Neuromuscular re-education (74452);Manual therapy (72924);Therapeutic activities (35212);Self-snf management (72101);Gait Training (56042);Patient/Family/Caregiver Education PLAN FOR NEXT VISIT: Further coordination, LE strength, and balance SUBJECTIVE: Patient Reason for Visit: NO falls. HEP compliance.. Functional Limitations: walking;standing;rising from a chair;physical activities (Notes a little better with sit to stand) Pain: Pain Pain Level: 0 Post Treatment Pain Post Treatment Pain Level: 0 PROMIS Scales Higher is Better 07/01/2021 08/15/2021 09/18/2021 Phys Func - Score - 39 (moderate dysfunction) 42 (mild dysfunction) Phys Func - Percentile - 14 % 21 % Social Roles - Score - 44 (mild dysfunction) 50 (within normal limits) Social Role - Percentile - 27 % 50 % GH Physical - Score 39.8 (Fair) - - GH Physical - Percentile 15 % - - GH Mental - Score 45.8 (Good) - - GH Mental - Percentile 34 % - - Self-Eff Symptom - Score - 53 (Average) 54 (Average) Self-Eff Symptom - Percentile - 62 % 66 % T-scores: mean of general population = 50. 5 points is clinically meaningfully difference Percentiles provide an indication of how the patient's score ranks in relation to the general population. Higher percentile rankings indicate better function/quality of life. 50th percentile is the average of the general population and indicates half of respondents had a worse score. Lower is Better 08/15/2021 09/18/2021 Fatigue - Score 42 (within normal limits) 49 (within normal limits) Fatigue - Percentile 79 % 54 % T-scores: mean of general population = 50. 5 points is clinically meaningfully difference Percentiles provide an indication of how the patient's score ranks in relation to the general population. Higher percentile rankings indicate better function/quality of life. 50th percentile is the average of the general population and indicates half of respondents had a worse score. OBJECTIVE MEASURES WITH LEVEL OF FUNCTION: LE Flexibility (more content not included)...[facility] [id number] History of Present illness Narrative* Kailey Lebron, PT, DPT - 09/18/2021 10:45 AM EDT Episode Visit Count: 3 Therapist That Will Oversee The Plan Of Care: Kailey Lebron Start of Care Date: 08/15/21 Onset Date: 08/15/20 Plan of Care Certification Date: 08/15/21 Next Certification Due Date: 10/14/21 Patient Identified by Name and Date of : Yes REHABILITATION AND SPORTS THERAPY PHYSICAL THERAPY PROGRESS REPORT PLAN OF CARE UPDATE: Assessment: Juanita Jay demonstrates moderate improvement in rising from a chair, standing, walking and physical activities. He hasmet multiple goals. Patient continues to present with impairments in balance, coordination, flexibility, gait, overall function and strength that interfere with walk ing;standing;rising from a chair;physical activities (Notes a little better with sit to stand) . Current prognosis is Good due to: current objective clinical presentation;good overall health status Fair due to: chronic nature of impairments . He will benefit from continued skilled therapy services to meet the updated goals for this plan of care as noted below. Goals for Episode of Care: updated 09/18/2021 Patient will increase strength of B LE to grossly 5/5 to allow patient to improve gait mechanics/gait pattern. --progressing Patient will increase flexibility of R gastroc to 10 degrees to improve mechanics for gait. --mild progression Patient will increase flexibility of R hamstring to 65 degrees to improve mechanics for gait.--MET Patient will perform sit to stand transfers with modified independence without need for UE assist for 1 rep. Patient will ambulate with least restrictive device with modified independence and improved ERIKA. --mildly progressing Patient will demonstrate current home exercise program independently. --MET Patient demonstrates independent and proper use of assistive device to allow for improved walking quality and safety therefore reducing the risk of falls. -progressing Improve five time sit to stand to <11.5 seconds WITH hands to decrease risk of falls and (evaluation: 13.9 seconds).--mild progression; currently 13.3 Patient will complete 12 reps on 30 second chair stand test WITH hands to decrease risk of falls. --not met Improve score on Timed Up and Go to by 3 sec to demonstrate MCID. --mild progression; improved by half second Improve score on Royal Balance Scale to >35/56 to decrease fall risk with Device. --MET Improve score on Royal Balance Scale to >46/56 to decrease fall risk with Device. --new goal Improve tandem stance on 4 stage balance test to = or >10 seconds to decrease risk for falls. --progressing; improved from 2 to 6 sec Planned Interventions, Frequency, and Duration: 1x/week, 4 weeks Total Number of Visits Planned: 4 Patient to be seen for Therapeutic exercise (74904);Neuromuscular re-education (99078);Manual therapy (82646);Therapeutic activities (12178);Self-snf management (40763);Gait Training (25800);Patient/Family/Caregiver Education PLAN FOR NEXT VISIT: Further coordination, LE strength, and balance SUBJECTIVE: Patient Reason for Visit: NO falls. HEP compliance.. Functional Limitations: walking;standing;rising from a chair;physical activities (Notes a little better with sit to stand) Pain: Pain Pain Level: 0 Post Treatment Pain Post Treatment Pain Level: 0 PROMIS Scales Higher is Better 07/01/2021 08/15/2021 09/18/2021 Phys Func - Score - 39 (moderate dysfunction) 42 (mild dysfunction) Phys Func - Percentile - 14 % 21 % Social Roles - Score - 44 (mild dysfunction) 50 (within normal limits) Social Role - Percentile - 27 % 50 % GH Physical - Score 39.8 (Fair) - - GH Physical - Percentile 15 % - - GH Mental - Score 45.8 (Good) - - GH Mental - Percentile 34 % - - Self-Eff Symptom - Score - 53 (Average) 54 (Average) Self-Eff Symptom - Percentile - 62 % 66 % T-scores: mean of general population = 50. 5 points is clinically meaningfully difference Percentiles provide an indication of how the patient's score ranks in relation to the general population. Higher percentile rankings indicate better function/quality of life. 50th percentile is the average of the general population and indicates half of respondents had a worse score. Lower is Better 08/15/2021 09/18/2021 Fatigue - Score 42 (within normal limits) 49 (within normal limits) Fatigue - Percentile 79 % 54 % T-scores: mean of general population = 50. 5 points is clinically meaningfully difference Percentiles provide an indication of how the patient's score ranks in relation to the general population. Higher percentile rankings indicate better function/quality of life. 50th percentile is the average of the general population and indicates half of respondents had a worse score. OBJECTIVE MEASURES WITH LEVEL OF FUNCTION: LE Flexibility R Hamstring Flexibility: 70 R Gastrocnemius Flexibility: 1 LE Strength R Hip Flexion (L2): 4/5 R Hip ABduction: 4/5 R Knee Extension (L3): 5/5 R Knee Flexion: 4+/5 R Ankle Dorsiflexion (L4): 4+/5 R Ankle Inversion: 4+/5 R Ankle Eversion: 4+/5 L Hip ABduction: 5/5 L Knee Extension (L3): 5/5 Movement Description Finger to Nose Impairment: Left Rapid Alternating Movements Impairment: Left Mobility Sit To Stand: Modified Independent Sit To Stand Comments: Can perform from gym chair without hands Gait Gait: Stand By Assistance Gait Device: Cane Gait Deviations: General Deviations General Deviations/Observations: Ataxic gait;Wide base of support;Step length decreased Gait Observation: Decreased R DF Functional Performance Test Results 30 Second Chair Stand Test: 0 reps (11 with B hands) 5 Times Sit to Stand Test : 0 sec (13.3 sec with B hands) Timed Up and Go (sec): 12.2 sec (cane R) 4 Stage Balance Test Tandem base of support (sec): 6 sec Royal Balance Scale Sit to stand : 3 - Able to stand independently using hands Standing unsupported : 4 - Able to stand safety 2 min Sitting : 4 - Able to sit safety and securely for 2 min Stand to sit: 4 - Sits safey minimal use of hands Transfers: 3 - Able to transfer safety definite need of hands Standing unsupported with eyes closed : 4 - Able to stand 10 sec safely Standing unsupported with feet together : 4 - Able to place feet together independently and stand 1min safely Reaching forward : 4 - Can reach forward confidently >10 inches Picking up object from floor : 4 - Able to warp picker object safely and easily Looking over shoulder: Looks behind from both sides and weight shifts well Turn 360 degrees : 1 - Needs close supervision or verbal cueing Alternate foot on step: 2 - Able to complete 4 steps without aid with supervision Tandem standing : 2 - Able to take small step independently and hold 30 sec Standing on leg : 0 - Unable to try or needs assist to prevent fall Royal Balance Test Total (calculated): 43 TREATMENT: Therapeutic Exercise: 2: Reassessment completed Skilled Intervention: Proper technique & skills to assess ROM & strength to properly adjustplan of care. Neuromuscular Re-Education: 2: Outcomes completed 3: Seated coorination: finger to nose alt; finger to nose alt EC; alt cone taps with toes; toe tapson cone alt; heel taps on cone alt Skilled Intervention: Proper implementation of objective outcomes with explanation of findings/deficits. Proper patient guarding to prevent falls/increase patient safety. Proper selection of treatments for this session based on clinical presentation, deficits, and needs. Patient educated on technique for exercises/activities performed this session. Billing Therapeutic Exercise Treatment Minutes: 20 Neuromuscular Re-Education Treatment Minutes: 20 Total Treatment Time Minutes (timed/untimed): 40 Kailey Lebron PT, DPT documented in this encounterCity Hospital05-26-2022 NoteHNO ID: [id number] Author: Kailey Lebron PT, DPT Service: ? Author Type: Physical Therapist Type: Progress Notes Filed: 09/06/2021 10:51 AM Note Text: Episode Visit Count: 2 Therapist That Will Oversee The Plan Of Care: Kailey Lebron Start of Care Date: 08/15/21 Onset Date: 08/15/20 Plan of Care Certification Date: 08/15/21 Next Certification Due Date: 10/14/21 Patient Identified by Name and Date of : Yes REHABILITATION AND SPORTS THERAPY PHYSICAL THERAPY TREATMENT NOTE ASSESSMENT: Juanita Jay tolerated the session with no issues. He demonstrated tolerance for progressed strengthening exercises. Verbalizes enjoyment for NuStep today. Had pt reschedule 2 missed appts. The patient will continue to benefit from ongoing skilled physical therapy for reassessment by supervising therapist. PLAN FOR NEXT VISIT: Recheck SUBJECTIVE: Patient Reason for Visit: No issues sinec last here. No falls. HEP compliance. Pain: Pain Pain Level: 0 Post Treatment Pain Post Treatment Pain Level: 0 OBJECTIVE MEASURES WITH LEVEL OF FUNCTION: Movement Description Ataxia Comments: noted with gait TREATMENT: Therapeutic Exercise: 1: Nustep, Seat 12, Level 3, LE only, x 6 min; education on goals, review of HEP, education on 2 hour rule 2: Hooklying with red stability ball: fwd/bkwd rolls x 15; side to side rolls x 10; alt SLR x 10 each 3: Bridge, arms across chest x 15 4: Abdominal brace x 10, 5 sec hold 5: PPT x 10, 5 sec hold 6: PPT with mini march x 1 min 7: PPT with hip rocking x 1 min 8: LAQ, 4# x 15 each 9: Tband HS curl, green x 15 each Skilled Intervention: Proper selection of treatments for this session based on clinical presentation, deficits, and needs. Patient educated on technique for exercises/activities performed this session. Education as above. Intermittent monitored recovery time provided to prevent MS related fatigue. Billing Therapeutic Exercise Treatment Minutes: 40 Total Treatment Time Minutes (timed/untimed): 40 Kailey Lebron PT, DPSelect Medical TriHealth Rehabilitation [id number] NoteHNO ID: [id number] Author: Kailey Lebron PT, DPT Service: ? Author Type: Physical Therapist Type: Progress Notes Filed: 08/15/2021 1:32 PM Note Text: Episode Visit Count: 1 Therapist That Will Oversee The Plan Of Care: Kailey Lebron Start of Care Date: 08/15/21 Onset Date: 08/15/20 Plan of Care Certification Date: 08/15/21 Next Certification Due Date: 10/14/21 Patient Identified by Name and Date of : Yes REHABILITATION AND SPORTS THERAPY PHYSICAL THERAPY EVALUATION PLAN OF CARE: Assessment: Juanita Jay presents with diagnosis of MS that interferes with walking;standing;rising from a chair;physical activities . He presents with impairments in balance, flexibility, gait, independence in exercise, overall function and strength . . Prognosis for therapy is Good due to: current objective clinical presentation;good overall health status Fair due to: chronic nature of impairments . Issued HEP to start working on strength and flexibility issues. He will benefit from skilled therapy services to meet the goals established for this plan of care as noted below. Goals for Episode of Care: created on 08/15/21 through 10/14/21 Patient will increase strength of B LE to grossly 5/5 to allow patient to improve gait mechanics/gait pattern. Patient will increase flexibility of R gastroc to 10 degrees to improve mechanics for gait. Patient will increase flexibility of R hamstring to 65 degrees to improve mechanics for gait. Patient will perform sit to stand transfers with modified independence without need for UE assist for 1 rep. Patient will ambulate with least restrictive device with modified independence and improved ERIKA. Patient will demonstrate current home exercise program independently. Patient demonstrates independent and proper use of assistive device to allow for improved walking quality and safety therefore reducing the risk of falls. Improve five time sit to stand to <11.5 seconds WITH hands to decrease risk of falls and (evaluation: 13.9 seconds). Patient will complete 12 reps on 30 second chair stand test WITH hands to decrease risk of falls. Improve score on Timed Up and Go to by 3 sec to demonstrate MCID. Improve score on Royal Balance Scale to >35/56 to decrease fall risk with device. Improve tandem stance on 4 stage balance test to = or >10 seconds to decrease risk for falls. Patient Goals: "Keep my balance more." Planned Interventions, Frequency, and Duration: Current Frequency: 2x/week Duration: 8 weeks Total Number of Visits Planned: 12 Planned Treatment Interventions: Therapeutic exercise (77940);Neuromuscular re-education (94523);Manual therapy (80716);Therapeutic activities (51026);Self-snf management (59772);Gait Training (62184);Patient/Family/Caregiver Education PLAN FOR NEXT VISIT: Review HEP issued today. Further LE strength and stretching Patient demonstrates good understanding of plan of care and treatment. The above goals and plan of care were discussed and agreed upon by patient/family. SUBJECTIVE: Juanita Jay is a 66 year old male seen today for Pt with dx of MS. Notes he feels really good in the summer with the pool but doesn't use it during the winter and notices a decline. Has access to [facility]. Patient Goals: "Keep my balance more." Functional Limitations: walking;standing;rising from a chair;physical activities Prior Level of Function: Independent without limitations Relevant History Past Relevant Medical Conditions: Multiple Sclerosis;Seizures Employment: Retired Recreation / Current Exercise: Daily walking about 30 minutes (notes about 1/4 mile) Home Environment Patient Lives With: Spouse Assistance Available: 24 Hour Home Type: Multi-Level Number Of Stairs To Bed/Bath: Full flight Stairs to Bed/Bath with: Bilateral Rail Equipment Owned: Cane;Rollator;Grab Bars-Shower (Scooter) Intake Information: Prescription present Previous Treatment: Physical Therapy? Falls Interview: Comments;Uses an assistive device;Two or more falls in the last year Falls Intervention: More thorough falls assessment to be performed Falls Comments: 5 falls in last year. Most recent yesterday feet got tangled up. Was using device. Bracing: Has R AFO but doesn't wear Driving Status: Driving without difficulty (Limiting it) Heat Susceptibility : No Pain: Pain Pain Level: 0 Post Treatment Pain Post Treatment Pain Level: 0 PROMIS Scales Higher is Better 06/12/2021 07/01/2021 08/15/2021 Phys Func - Score - - 39 (moderate dysfunction) Phys Func - Percentile - - 14 % Social Roles - Score - - 44 (mild dysfunction) Social Role - Percentile - - 27 % GH Physical - Score 39.8 (Fair) 39.8 (Fair) - GH Physical - Percentile 15 % 15 % - GH Mental - Score 45.8 (Good) 45.8 (Good) - GH Mental - Percentile 34 % 34 % - Self-Eff Symptom - Score - - 53 (Average) Self-Eff Symptom - Percentile - - 6 (more content not included)...[facility] [id number] History of Present illness Narrative* Kailey Lebron, PT, DPT - 08/15/2021 1:01 PM EDT Episode Visit Count: 1 Therapist That Will Oversee The Plan Of Care: Kailey Lebron Start of Care Date: 08/15/21 Onset Date: 08/15/20 Plan of Care Certification Date: 08/15/21 Next Certification Due Date: 10/14/21 Patient Identified by Name and Date of : Yes REHABILITATION AND SPORTS THERAPY PHYSICAL THERAPY EVALUATION PLAN OF CARE: Assessment: Juanita Jay presents with diagnosis of MS that interferes with walking;standing;rising from a chair;physical activities . He presents with impairments in balance, flexibility, gait, independence in exercise, overall function and strength . . Prognosis for therapy is Good due to: current objective clinical presentation;good overall health status Fair due to: chronic nature of impairments . Issued HEP to start working on strength and flexibility issues. He will benefit from skilled therapy services to meet the goals established for this plan of care as noted below. Goals for Episode of Care: created on 08/15/21 through 10/14/21 Patient will increase strength of B LE to grossly 5/5 to allow patient to improve gait mechanics/gait pattern. Patient will increase flexibility of R gastroc to 10 degrees to improve mechanics for gait. Patient will increase flexibility of R hamstring to 65 degrees to improve mechanics for gait. Patient will perform sit to stand transfers with modified independence without need for UE assist for 1 rep. Patient will ambulate with least restrictive device with modified independence and improved ERIKA. Patient will demonstrate current home exercise program independently. Patient demonstrates independent and proper use of assistive device to allow for improved walking quality and safety therefore reducing the risk of falls. Improve five time sit to stand to <11.5 seconds WITH hands to decrease risk of falls and (evaluation: 13.9 seconds). Patient will complete 12 reps on 30 second chair stand test WITH hands to decrease risk of falls. Improve score on Timed Up and Go to by 3 sec to demonstrate MCID. Improve score on Royal Balance Scale to >35/56 to decrease fall risk with device. Improve tandem stance on 4 stage balance test to = or >10 seconds to decrease risk for falls. Patient Goals: "Keep my balance more." Planned Interventions, Frequency, and Duration: Current Frequency: 2x/week Duration: 8 weeks Total Number of Visits Planned: 12 Planned Treatment Interventions: Therapeutic exercise (17369);Neuromuscular re- education (94040);Manual therapy (03246);Therapeutic activities (46725);Self- snf management (23098);Gait Training (03315);Patient/Family/Caregiver Education PLAN FOR NEXT VISIT: Review HEP issued today. Further LE strength and stretching Patient demonstrates good understanding of plan of care and treatment. The above goals and plan of care were discussed and agreed upon by patient/family. SUBJECTIVE: Juanita Jay is a 66 year old male seen today for Pt with dx of MS. Notes he feels really good in the summer with the pool but doesn't use it during the winter and notices a decline. Has access to [facility]. Patient Goals: "Keep my balance more." Functional Limitations: walking;standing;rising from a chair;physical activities Prior Level of Function: Independent without limitations Relevant History Past Relevant Medical Conditions: Multiple Sclerosis;Seizures Employment: Retired Recreation / Current Exercise: Daily walking about 30 minutes (notes about 1/4 mile) Home Environment Patient Lives With: Spouse Assistance Available: 24 Hour Home Type: Multi-Level Number Of Stairs To Bed/Bath: Full flight Stairs to Bed/Bath with: Bilateral Rail Equipment Owned: Cane;Rollator;Grab Bars-Shower (Scooter) Intake Information: Prescription present Previous Treatment: Physical Therapy Falls Interview: Comments;Uses an assistive device;Two or more falls in the last year Falls Intervention: More thorough falls assessment to be performed Falls Comments: 5 falls in last year. Most recent yesterday feet got tangled up. Was using device. Bracing: Has R AFO but doesn't wear Driving Status: Driving without difficulty (Limiting it) Heat Susceptibility : No Pain: Pain Pain Level: 0 Post Treatment Pain Post Treatment Pain Level: 0 PROMIS Scales Higher is Better 06/12/2021 07/01/2021 08/15/2021 Phys Func - Score - - 39 (moderate dysfunction) Phys Func - Percentile - - 14 % Social Roles - Score - - 44 (mild dysfunction) Social Role - Percentile - - 27 % GH Physical - Score 39.8 (Fair) 39.8 (Fair) - GH Physical - Percentile 15 % 15 % - GH Mental - Score 45.8 (Good) 45.8 (Good) - GH Mental - Percentile 34 % 34 % - Self-Eff Symptom - Score - - 53 (Average) Self-Eff Symptom - Percentile - - 62 % T-scores: mean of general population = 50. 5 points is clinically meaningfully difference Percentiles provide an indication of how the patient's score ranks in relation to the general population. Higher percentile rankings indicate better function/quality of life. 50th percentile is the average of the general population and indicates half of respondents had a worse score. Lower is Better 08/15/2021 Fatigue - Score 42 (within normal limits) Fatigue - Percentile 79 % T-scores: mean of general population = 50. 5 points is clinically meaningfully difference Percentiles provide an indication of how the patient's score ranks in relation to the general population. Higher percentile rankings indicate better function/quality of life. 50th percentile is the average of the general population and indicates half of respondents had a worse score. OBJECTIVE MEASURES WITH LEVEL OF FUNCTION: Cognition Cognition: Memory Deficits Memory Deficits: (Verbalizes impairment) Vision Vision Deficits: Wears corrective lenses Posture / Alignment Posture: Rounded shoulders LE Flexibility R Hamstring Flexibility: 58 L Hamstring Flexibility: 65 R Gastrocnemius Flexibility: 0 L Gastrocnemius Flexibility: 11 UE and Cervical Strength R Shoulder Flexion: (B UE strength WNL) L Shoulder Flexion: (B UE strength WNL) LE Strength R Hip Extension: 5/5 R Hip Flexion (L2): 4/5 R Hip ABduction: 4/5 R Knee Extension (L3): 4+/5 R Knee Flexion: 4+/5 R Ankle Dorsiflexion (L4): 4/5 R Ankle Inversion: 4-/5 R Ankle Eversion: 4-/5 L Hip Extension: 5/5 L Hip Flexion (L2): 5/5 L Hip ABduction: 4+/5 L Knee Extension (L3): 4+/5 L Knee Flexion: 5/5 Tone R Plantarflexor: 1: Slight increase in tone (catch and release at end of ROM) Mobility Sit To Stand: Supervision;Comments Sit To Stand Comments: must use hands to rise; unable to complete without hands Gait Gait: Stand By Assistance Gait Device: Cane Gait Deviations: General Deviations General Deviations/Observations: Ataxic gait;Wide base of support;Step length decreased Gait Observation: Decreased R DF Functional Performance Test Results Assistive Device: Cane 30 Second Chair Stand Test: 0 reps (11 reps with B hands) 5 Times Sit to Stand Test : 0 sec (13.96 with B hands) Timed Up and Go (sec): 12.6 sec (cane R) 4 Stage Balance Test Narrow base of support (sec): 10 sec Semi-tandem base of support (sec): 10 sec Tandem base of support (sec): 2 sec Royal Balance Scale Sit to stand : 3 - Able to stand independently using hands Standing unsupported : 4 - Able to stand safety 2 min Sitting : 4 - Able to sit safety and securely for 2 min Stand to sit: 3 - Controls descent by using hands Transfers: 2 - Able to transfer safety with verbal cueing and/or supervision Standing unsupported with eyes closed : 3 - Able to stand 10 sec with supervision Standing unsupported with feet together : 1 - Needs help to attain position but able to stand 15 sec feet together Reaching forward : 4 - Can reach forward confidently >10 inches Picking up object from floor : 3 - Able to warp picker object but needs supervision Looking over shoulder: Looks behind from both sides and weight shifts well Turn 360 degrees : 0 - Needs assistance while turning Alternate foot on step: 0 - Needs assist to keep from falling/unable to try Tandem standing : 0 - Loses balance while stepping or standing Standing on leg : 0 - Unable to try or needs assist to prevent fall Royal Balance Test Total (calculated): 31 Education: Education Learning Preferences: Explanation Barriers: Cognitive Limitations Learning/educational needs: Home exercise program;Plan of Care;Posture;Gait Training Education Provided: Yes, see treatment interventions for education provided Education Provided To: Patient Education Mode/Type: Demonstration;Explanation/Discussion Response to Education/Teach Back: States/Identifies TREATMENT: PT Treatment Interventions: Therapeutic Exercise;Neuromuscular Re-Education Evaluation Therapeutic Exercise: 1: *HEP reviewed and issued: SLR, sidelying hip abd, supine 90/90 hs stretch, calf stretch with strap 2: Eduation on importance of daily exercise Skilled Intervention: Exercise handouts for new home exercises complied & distributed to patient. Proper selection of treatments for this session based on clinical presentation, deficits, and needs. Education as above. Neuromuscular Re-Education: 1: Education on use of cane at all times; risk of fall based on testing; poc 2: Outcomes completed Skilled Intervention: Patient education as noted. Proper implementation of objective outcomes with explanation of findings/deficits. Proper patient guarding to prevent falls/increase patient safety. Billing * Evaluation Moderate Complexity: 1 Unit Therapeutic Exercise Treatment Minutes: 8 Neuromuscular Re-Education Treatment Minutes: 8 Total Treatment Time Minutes (timed/untimed): 40 Kailey Lebron PT, DPT [facility] History of Present illness Narrative* Sara Barnett RT(R) - 07/23/2021 11:20 AM EDT Radiology Service Progress Note DATE OF SERVICE: July 23, 2021 TIME: 11:42 AM PATIENT IDENTITY VERIFICATION COMPLETED USING TWO (2) STANDARD IDENTIFIERS: Name and Date of confirmed by patient verbally. FALL SCREENING: Has the patient had 2 falls in the last year or 1 fall with injury or currently using an Ambulatory Assistive Device (Walker, Cane, Wheelchair, Crutches, etc.)? No PATIENT GENDER DATA: Male PATIENT RELEVANT IMPLANT DATA REVIEWED: Yes ALLERGIES: Reviewed and unchanged CONTRAST ALLERGY: NO. EXAM: MRI - CONTRAST TYPE: GROUP II PERIPHERAL IV DATA: Ambulatory: A peripheral IV was started in the Right antecubital site with a Angio cath: 22 gauge. RADIOLOGY DEPARTMENT: MR; Exam(s) Completed: Head: Multiple Sclerosis SIGNATURE: RT Kvng(R) PATIENT NAME: Juanita Jay DATE: July 23, 2021 TIME: 11:42 AM documented in this encounterCity [facility] History of Present illness Narrative* Marilyn Harvey RT(R) - 10/13/2020 8:10 AM EDT Radiology Service Progress Note PATIENT NAME: Juanita Jay DATE OF SERVICE: October 13, 2020 TIME: 8:21 AM PATIENT IDENTITY VERIFICATION COMPLETED USING TWO (2) IDENTIFIERS: Name and Date of confirmedby patient verbally. FALL SCREENING: Has the patient had 2 falls in the last year or 1 fall with injury or currently using an Ambulatory Assistive Device (Walker, Cane, Wheelchair, Crutches, etc.)? No PATIENT GENDER DATA: Male PATIENT RELEVANT IMPLANT DATA REVIEWED: Not Applicable RADIOLOGY DEPARTMENT: General X-ray: Exam(s) Completed: Upper Extremity X- Ray(s): Elbow, left PERIPHERAL IV DATA: Not applicable SIGNED BY: RT Aniyah(R) October 13, 2020 8:21 AM documented in this encounterCity [facility] History of Past illness Narrative* Problem Noted Date Resolved Date Multiple sclerosis 06/16/2003 07/09/2007 documented as of this encounter (statuses as of 07/24/2021) [facility] Narrative* Problem Noted Date Resolved Date Multiple sclerosis 06/16/2003 07/09/2007 documented as of this encounter (statuses as of 08/01/2021) [facility] illness Narrative* Problem Noted Date Resolved Date Multiple sclerosis 06/16/2003 07/09/2007 documented as of this encounter (statuses as of 08/02/2021) [facility] note* Diagnosis Multiple sclerosis, relapsing-remitting (HCC) Multiple sclerosis [facility]* Diagnosis Leg weakness, bilateral- Primary Other musculoskeletal symptoms referable to limbs Multiple sclerosis (HCC) Multiple sclerosis Abnormality of gait Imbalance Abnormality of gait [facility]* Diagnosis Leg weakness, bilateral Other musculoskeletal symptoms referable to limbs Imbalance Abnormality of gait Abnormality of gait MS (multiple sclerosis) (HCC) Multiple sclerosis [facility]* Diagnosis Leg weakness, bilateral Other musculoskeletal symptoms referable to limbs Imbalance Abnormality of gait Abnormality of gait MS (multiple sclerosis) (HCC) Multiple sclerosis [facility]* Diagnosis Leg weakness, bilateral Other musculoskeletal symptoms referable to limbs Imbalance Abnormality of gait Abnormality of gait MS (multiple sclerosis) (HCC) Multiple sclerosis [facility]* Diagnosis Dermatitis- Primary Contact dermatitis and other eczema, due to unspecified cause documented [facility] this encounter [facility] noteNo assessment information availableWTwin City Hospital Work Phone: Evaluation note* Diagnosis Multiple sclerosis (HCC)- Primary Multiple sclerosis [facility]* Diagnosis Seizure (HCC) Other convulsions Examination of participant in clinical trial Multiple sclerosis (HCC) Multiple sclerosis [facility]* Diagnosis MS (multiple sclerosis) (HCC)- Primary Multiple sclerosis Imbalance Abnormality of gait Abnormality of gait Leg weakness, bilateral Other musculoskeletal symptoms referable to limbs [facility]* Diagnosis MS (multiple sclerosis) (HCC)- Primary Multiple sclerosis Imbalance Abnormality of gait Abnormality of gait Leg weakness, bilateral Other musculoskeletal symptoms referable to limbs [facility]* Diagnosis Seizure (HCC) Other convulsions [facility]* Diagnosis Dermatitis- Primary Contact dermatitis and other eczema, due to unspecified cause [facility]* Diagnosis Right foot drop- Primary Other acquired deformity of ankle and foot Examination of participant in clinical trial Multiple sclerosis (HCC) Multiple sclerosis [facility]* Diagnosis Medication monitoring encounter- Primary Encounter for therapeutic drug monitoring documented in this encounter [facility] note* Diagnosis Laceration of left eyebrow, initial encounter- Primary Closed head injury, initial encounter Laceration of left eyebrow Closed head injury Head injury, unspecified documented in this encounter [facility]* Diagnosis Multiple sclerosis (HCC)- Primary Multiple sclerosis documented in this encounter [facility] note* Diagnosis Seizure (HCC)- Primary Other convulsions [facility]* Diagnosis Multiple sclerosis (HCC) Multiple sclerosis documented in this encounter [facility] note* Diagnosis Elbow injury, left, initial encounter [facility]* Diagnosis Examination of participant in clinical trial Multiple sclerosis (HCC) Multiple sclerosis documented in this encounter [facility] note* Diagnosis Multiple sclerosis (HCC)- Primary Multiple sclerosis Vitamin D deficiency Unspecified vitamin D deficiency [facility]* Diagnosis Examination of participant in clinical trial Multiple sclerosis (HCC) Multiple sclerosis [facility]* Diagnosis Examination of participant in clinical trial Multiple sclerosis (HCC) Multiple sclerosis documented in this encounter [facility] note* Diagnosis Multiple sclerosis (HCC)- Primary Multiple sclerosis Vitamin D deficiency Unspecified vitamin D deficiency Imbalance Abnormality of gait [facility]* Diagnosis Multiple sclerosis (HCC) Multiple sclerosis Vitamin D deficiency Unspecified vitamin D deficiency [facility]* Diagnosis Examination of participant in clinical trial Multiple sclerosis (HCC) Multiple sclerosis [facility] this encounter [facility]* Diagnosis Medicare annual wellness visit, initial- Primary Routine general medical examination at a health care facility Seizure (HCC) Other convulsions MS (multiple sclerosis) (HCC) Multiple sclerosis Balance problem Other symptoms involving nervous and musculoskeletal systems 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 Acute gastric ulcer with hemorrhage Acute gastric ulcer with hemorrhage, without mention of obstruction Anemia, blood loss Iron deficiency anemia secondary to blood loss (chronic) Screening for colon cancer Special screening for malignant neoplasms, colon Screening for prostate cancer Special screening for malignant neoplasm of prostate Encounter for immunization Need for other specified prophylactic vaccination against single bacterial disease Screening for abdominal aortic aneurysm Screening for other and unspecified cardiovascular conditions documented in this encounter [facility] course Narrative No data available for this section [facility] Discharge instructions No data available for this section [facility] Progress note No data available for this section [facility] Reason for referral (narrative)No reason for referral information availableWTwin City Hospital Work Phone: Reason for visit Narrative* Diagnostic Procedure Only (Urgent) - Closed Specialty Diagnoses / Procedures Referred By Hiram t Referred To Contact XR IMAGING Diagnoses Shoulder injury, right, initial encounter Procedures XR SHOULDER GENERAL 3V OR MORE AP/TRUE AP/OTHER RIGHT RADEX SHOULDER COMPLETE MINIMUM 2 VIEWS Michael Rushing APRN.DIRECTOR OF PATIENT CARE [address] [place] [address] Xr Imaging [place] [address] Referral ID Status Reason Start Date Expiration Date V isits Requested Visits Authorized [id number] Closed Auto-Generate d Referral 12/24/2021 01/23/2023 1 [facility] for Referral Specialty Diagnoses / Procedures Referred By Hiram freeman Referred To Contact MR IMAGING Diagnoses Multiple sclerosis, relapsing-remitting (HCC) Procedures MRI BRAIN WO/W IVCON MRI BRAIN BRAIN STEM W/O W/CONTRAST MATERIAL Tello Slaughter PA-C [address] [facility] [place] [address] Mr Imaging Referral ID Status Reason Start Date Expiration Date V isits Requested Visits Authorized [id number] Closed Auto-Generate d Referral 07/04/2021 08/03/2022 1 1 Specialty Diagnoses / Procedures Referred By Hiram t Referred To Contact Dermatology Diagnoses Dermatitis Procedures CONSULT TO DERMATOLOGY Dianne Leigh PA-C [address] [place] [address] Referral ID Status Reason Start Date Expiration Date Visits Requested Visits Authorized [id number] Ref Not Required PCP Requested Referral 11/02/2021 11/02/2022 1 1 Specialty Diagnoses / Procedures Referred By Contac t Referred To Contact Diagnoses Dermatitis Procedures CONSULT TO DERMATOLOGY Dianne Leigh PA-C [address] [place] [address] Referral ID Status Reason Start Date Expiration Date V isits Requested Visits Authorized [id number] Closed PCP Requested Referral 04/19/2022 04/19/2023 1 1 Specialty Diagnoses / Procedures Referred By Contac t Referred To Contact MR IMAGING Diagnoses Multiple sclerosis (HCC) Procedures MRI BRAIN WO/W IVCON MRI BRAIN BRAIN STEM W/O W/CONTRAST MATERIAL Tello Slaughter PA-C [address] [place] [address] Mr Imaging Referral ID Status Reason Start Date Expiration Date Visits Requested Visits Authorized [id number] Pending Review Auto-Generat ed Referral 07/09/2022 08/08/2023 1 1 Specialty Diagnoses / Procedures Referred By Contac t Referred To Contact MR IMAGING Diagnoses Multiple sclerosis (HCC) Procedures MRI BRAIN WO/W IVCON MRI BRAIN BRAIN STEM W/O W/CONTRAST MATERIAL Tello Slaughter PA-C [address] [place] [address] Imaging [id number] Referral ID Status Reason Start Date Expiration Date V isits Requested Visits Authorized [id number] Closed Auto-Generate d Referral 07/09/2022 08/08/2023 1 1 Specialty Diagnoses / Procedures Referred By Contac t Referred To Contact Tello Slaughter PA-C [address] [place] [address] Referral ID Status Reason Start Date Expiration Date V isits Requested Visits Authorized [id number] Pending Review 1 1 Advance Directives No Advanced Directives Records FoundDocuments on File Type Date Recorded 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 No March 14, 2024 1:10am Living Will Yes April 14 1:09am Do you have a Healthcare Power of Road Conductor? No April 14, 2024 1:09am Summary Purpose Family History No Family History Records Found Relationship Condition Age at Onset Recorded Date/T brendan mother Multiple myeloma Unknown father Cerebrovascular accident (CVA) Unknown brother Coronary artery disease Unknown History of coronary artery bypass surgery Unknown Chief Complaint and Reason for Visit Chief Complaint Admit Date CABG April 12, 2024 1:00pm CABG 2024 1 :00pm Additional Source Comments Source Comments (unrecognize d section and content) In the event this informatio n is protected by the Federal Confidentiality of Alcohol and Drug Abuse Patient Records regulations: The Federal rules restrict any use of the information to criminally investigate or prosecute any alcohol or drug abuse patient.[facility] HospitalIn the event this information is protected by the Federal Confidentiality of Alcohol and Drug Abuse Patient Records regulations: The Federal rules restrict any use of the information to criminally investigate or prosecute any alcohol or drug abuse patient.[facility] HospitalIn the event this information is protected by the Federal Confidentiality of Alcohol and Drug Abuse Patient Records regulations: The Federal rules restrict any use of the information to criminally investigate or prosecute any alcohol or drug abuse patient.[facility] HospitalIn the event this information is protected by the Federal Confidentiality of Alcohol and Drug Abuse Patient Records regulations: The Federal rules restrict any use of the information to criminally investigate or prosecute any alcohol or drug abuse patient.[facility] HospitalIn the event this information is protected by the Federal Confidentiality of Alcohol and Drug Abuse Patient Records regulations: The Federal rules restrict any use of the information to criminally investigate or prosecute any alcohol or drug abuse patient.[facility] HospitalIn the event this information is protected by the Federal Confidentiality of Alcohol and Drug Abuse Patient Records regulations: The Federal rules restrict any use of the information to criminally investigate or prosecute any alcohol or drug abuse patient.[facility] HospitalIn the event this information is protected by the Federal Confidentiality of Alcohol and Drug Abuse Patient Records regulations: The Federal rules restrict any use of the information to criminally investigate or prosecute any alcohol or drug abuse patient.[facility] HospitalIn the event this information is protected by the Federal Confidentiality of Alcohol and Drug Abuse Patient Records regulations: The Federal rules restrict any use of the information to criminally investigate or prosecute any alcohol or drug abuse patient.[facility] HospitalIn the event this information is protected by the Federal Confidentiality of Alcohol and Drug Abuse Patient Records regulations: The Federal rules restrict any use of the information to criminally investigate or prosecute any alcohol or drug abuse patient.[facility] HospitalIn the event this information is protected by the Federal Confidentiality of Alcohol and Drug Abuse Patient Records regulations: The Federal rules restrict any use of the information to criminally investigate or prosecute any alcohol or drug abuse patient.[facility] HospitalIn the event this information is protected by the Federal Confidentiality of Alcohol and Drug Abuse Patient Records regulations: The Federal rules restrict any use of the information to criminally investigate or prosecute any alcohol or drug abuse patient.[facility] HospitalIn the event this information is protected by the Federal Confidentiality of Alcohol and Drug Abuse Patient Records regulations: The Federal rules restrict any use of the information to criminally investigate or prosecute any alcohol or drug abuse patient.[facility] HospitalIn the event this information is protected by the Federal Confidentiality of Alcohol and Drug Abuse Patient Records regulations: The Federal rules restrict any use of the information to criminally investigate or prosecute any alcohol or drug abuse patient.[facility] HospitalIn the event this information is protected by the Federal Confidentiality of Alcohol and Drug Abuse Patient Records regulations: The Federal rules restrict any use of the information to criminally investigate or prosecute any alcohol or drug abuse patient.[facility] HospitalIn the event this information is protected by the Federal Confidentiality of Alcohol and Drug Abuse Patient Records regulations: The Federal rules restrict any use of the information to criminally investigate or prosecute any alcohol or drug abuse patient.[facility] HospitalIn the event this information is protected by the Federal Confidentiality of Alcohol and Drug Abuse Patient Records regulations: The Federal rules restrict any use of the information to criminally investigate or prosecute any alcohol or drug abuse patient.[facility] HospitalIn the event this information is protected by the Federal Confidentiality of Alcohol and Drug Abuse Patient Records regulations: The Federal rules restrict any use of the information to criminally investigate or prosecute any alcohol or drug abuse patient.[facility] HospitalIn the event this information is protected by the Federal Confidentiality of Alcohol and Drug Abuse Patient Records regulations: The Federal rules restrict any use of the information to criminally investigate or prosecute any alcohol or drug abuse patient.[facility] HospitalIn the event this information is protected by the Federal Confidentiality of Alcohol and Drug Abuse Patient Records regulations: The Federal rules restrict any use of the information to criminally investigate or prosecute any alcohol or drug abuse patient.[facility] HospitalIn the event this information is protected by the Federal Confidentiality of Alcohol and Drug Abuse Patient Records regulations: The Federal rules restrict any use of the information to criminally investigate or prosecute any alcohol or drug abuse patient.[facility] HospitalIn the event this information is protected by the Federal Confidentiality of Alcohol and Drug Abuse Patient Records regulations: The Federal rules restrict any use of the information to criminally investigate or prosecute any alcohol or drug abuse patient.[facility] HospitalIn the event this information is protected by the Federal Confidentiality of Alcohol and Drug Abuse Patient Records regulations: The Federal rules restrict any use of the information to criminally investigate or prosecute any alcohol or drug abuse patient.[facility] HospitalIn the event this information is protected by the Federal Confidentiality of Alcohol and Drug Abuse Patient Records regulations: The Federal rules restrict any use of the information to criminally investigate or prosecute any alcohol or drug abuse patient.[facility] HospitalIn the event this information is protected by the Federal Confidentiality of Alcohol and Drug Abuse Patient Records regulations: The Federal rules restrict any use of the information to criminally investigate or prosecute any alcohol or drug abuse patient.[facility] HospitalIn the event this information is protected by the Federal Confidentiality of Alcohol and Drug Abuse Patient Records regulations: The Federal rules restrict any use of the information to criminally investigate or prosecute any alcohol or drug abuse patient.[facility] HospitalIn the event this information is protected by the Federal Confidentiality of Alcohol and Drug Abuse Patient Records regulations: The Federal rules restrict any use of the information to criminally investigate or prosecute any alcohol or drug abuse patient.[facility] HospitalIn the event this information is protected by the Federal Confidentiality of Alcohol and Drug Abuse Patient Records regulations: The Federal rules restrict any use of the information to criminally investigate or prosecute any alcohol or drug abuse patient.[facility] HospitalIn the event this information is protected by the Federal Confidentiality of Alcohol and Drug Abuse Patient Records regulations: The Federal rules restrict any use of the information to criminally investigate or prosecute any alcohol or drug abuse patient.[facility] HospitalIn the event this information is protected by the Federal Confidentiality of Alcohol and Drug Abuse Patient Records regulations: The Federal rules restrict any use of the information to criminally investigate or prosecute any alcohol or drug abuse patient.[facility] HospitalIn the event this information is protected by the Federal Confidentiality of Alcohol and Drug Abuse Patient Records regulations: The Federal rules restrict any use of the information to criminally investigate or prosecute any alcohol or drug abuse patient.[facility] HospitalIn the event this information is protected by the Federal Confidentiality of Alcohol and Drug Abuse Patient Records regulations: The Federal rules restrict any use of the information to criminally investigate or prosecute any alcohol or drug abuse patient.[facility] HospitalIn the event this information is protected by the Federal Confidentiality of Alcohol and Drug Abuse Patient Records regulations: The Federal rules restrict any use of the information to criminally investigate or prosecute any alcohol or drug abuse patient.[facility] HospitalIn the event this information is protected by the Federal Confidentiality of Alcohol and Drug Abuse Patient Records regulations: The Federal rules restrict any use of the information to criminally investigate or prosecute any alcohol or drug abuse patient.[facility] HospitalIn the event this information is protected by the Federal Confidentiality of Alcohol and Drug Abuse Patient Records regulations: The Federal rules restrict any use of the information to criminally investigate or prosecute any alcohol or drug abuse patient.[facility] HospitalIn the event this information is protected by the Federal Confidentiality of Alcohol and Drug Abuse Patient Records regulations: The Federal rules restrict any use of the information to criminally investigate or prosecute any alcohol or drug abuse patient.[facility] HospitalIn the event this information is protected by the Federal Confidentiality of Alcohol and Drug Abuse Patient Records regulations: The Federal rules restrict any use of the information to criminally investigate or prosecute any alcohol or drug abuse patient.[facility] HospitalIn the event this information is protected by the Federal Confidentiality of Alcohol and Drug Abuse Patient Records regulations: The Federal rules restrict any use of the information to criminally investigate or prosecute any alcohol or drug abuse patient.[facility] HospitalIn the event this information is protected by the Federal Confidentiality of Alcohol and Drug Abuse Patient Records regulations: The Federal rules restrict any use of the information to criminally investigate or prosecute any alcohol or drug abuse patient.[facility] HospitalIn the event this information is protected by the Federal Confidentiality of Alcohol and Drug Abuse Patient Records regulations: The Federal rules restrict any use of the information to criminally investigate or prosecute any alcohol or drug abuse patient.[facility] HospitalIn the event this information is protected by the Federal Confidentiality of Alcohol and Drug Abuse Patient Records regulations: The Federal rules restrict any use of the information to criminally investigate or prosecute any alcohol or drug abuse patient.[facility] HospitalIn the event this information is protected by the Federal Confidentiality of Alcohol and Drug Abuse Patient Records regulations: The Federal rules restrict any use of the information to criminally investigate or prosecute any alcohol or drug abuse patient.[facility] HospitalIn the event this information is protected by the Federal Confidentiality of Alcohol and Drug Abuse Patient Records regulations: The Federal rules restrict any use of the information to criminally investigate or prosecute any alcohol or drug abuse patient.[facility] HospitalIn the event this information is protected by the Federal Confidentiality of Alcohol and Drug Abuse Patient Records regulations: The Federal rules restrict any use of the information to criminally investigate or prosecute any alcohol or drug abuse patient.[facility] HospitalIn the event this information is protected by the Federal Confidentiality of Alcohol and Drug Abuse Patient Records regulations: The Federal rules restrict any use of the information to criminally investigate or prosecute any alcohol or drug abuse patient.[facility] HospitalIn the event this information is protected by the Federal Confidentiality of Alcohol and Drug Abuse Patient Records regulations: The Federal rules restrict any use of the information to criminally investigate or prosecute any alcohol or drug abuse patient.[facility] HospitalIn the event this information is protected by the Federal Confidentiality of Alcohol and Drug Abuse Patient Records regulations: The Federal rules restrict any use of the information to criminally investigate or prosecute any alcohol or drug abuse patient.[facility] HospitalIn the event this information is protected by the Federal Confidentiality of Alcohol and Drug Abuse Patient Records regulations: The Federal rules restrict any use of the information to criminally investigate or prosecute any alcohol or drug abuse patient.[facility] HospitalIn the event this information is protected by the Federal Confidentiality of Alcohol and Drug Abuse Patient Records regulations: The Federal rules restrict any use of the information to criminally investigate or prosecute any alcohol or drug abuse patient.[facility] HospitalIn the event this information is protected by the Federal Confidentiality of Alcohol and Drug Abuse Patient Records regulations: The Federal rules restrict any use of the information to criminally investigate or prosecute any alcohol or drug abuse patient.[facility] HospitalIn the event this information is protected by the Federal Confidentiality of Alcohol and Drug Abuse Patient Records regulations: The Federal rules restrict any use of the information to criminally investigate or prosecute any alcohol or drug abuse patient.[facility] HospitalIn the event this information is protected by the Federal Confidentiality of Alcohol and Drug Abuse Patient Records regulations: The Federal rules restrict any use of the information to criminally investigate or prosecute any alcohol or drug abuse patient.[facility] HospitalIn the event this information is protected by the Federal Confidentiality of Alcohol and Drug Abuse Patient Records regulations: The Federal rules restrict any use of the information to criminally investigate or prosecute any alcohol or drug abuse patient.[facility] HospitalIn the event this information is protected by the Federal Confidentiality of Alcohol and Drug Abuse Patient Records regulations: The Federal rules restrict any use of the information to criminally investigate or prosecute any alcohol or drug abuse patient.[facility] HospitalIn the event this information is protected by the Federal Confidentiality of Alcohol and Drug Abuse Patient Records regulations: The Federal rules restrict any use of the information to criminally investigate or prosecute any alcohol or drug abuse patient.[facility] HospitalIn the event this information is protected by the Federal Confidentiality of Alcohol and Drug Abuse Patient Records regulations: The Federal rules restrict any use of the information to criminally investigate or prosecute any alcohol or drug abuse patient.[facility] HospitalIn the event this information is protected by the Federal Confidentiality of Alcohol and Drug Abuse Patient Records regulations: The Federal rules restrict any use of the information to criminally investigate or prosecute any alcohol or drug abuse patient.[facility] HospitalIn the event this information is protected by the Federal Confidentiality of Alcohol and Drug Abuse Patient Records regulations: The Federal rules restrict any use of the information to criminally investigate or prosecute any alcohol or drug abuse patient.[facility] HospitalIn the event this information is protected by the Federal Confidentiality of Alcohol and Drug Abuse Patient Records regulations: The Federal rules restrict any use of the information to criminally investigate or prosecute any alcohol or drug abuse patient.[facility] HospitalIn the event this information is protected by the Federal Confidentiality of Alcohol and Drug Abuse Patient Records regulations: The Federal rules restrict any use of the information to criminally investigate or prosecute any alcohol or drug abuse patient.[facility] HospitalIn the event this information is protected by the Federal Confidentiality of Alcohol and Drug Abuse Patient Records regulations: The Federal rules restrict any use of the information to criminally investigate or prosecute any alcohol or drug abuse patient.[facility] HospitalIn the event this information is protected by the Federal Confidentiality of Alcohol and Drug Abuse Patient Records regulations: The Federal rules restrict any use of the information to criminally investigate or prosecute any alcohol or drug abuse patient.[facility] HospitalIn the event this information is protected by the Federal Confidentiality of Alcohol and Drug Abuse Patient Records regulations: The Federal rules restrict any use of the information to criminally investigate or prosecute any alcohol or drug abuse patient.[facility] HospitalIn the event this information is protected by the Federal Confidentiality of Alcohol and Drug Abuse Patient Records regulations: The Federal rules restrict any use of the information to criminally investigate or prosecute any alcohol or drug abuse patient.[facility] HospitalIn the event this information is protected by the Federal Confidentiality of Alcohol and Drug Abuse Patient Records regulations: The Federal rules restrict any use of the information to criminally investigate or prosecute any alcohol or drug abuse patient.[facility] HospitalIn the event this information is protected by the Federal Confidentiality of Alcohol and Drug Abuse Patient Records regulations: The Federal rules restrict any use of the information to criminally investigate or prosecute any alcohol or drug abuse patient.[facility] HospitalIn the event this information is protected by the Federal Confidentiality of Alcohol and Drug Abuse Patient Records regulations: The Federal rules restrict any use of the information to criminally investigate or prosecute any alcohol or drug abuse patient.[facility] HospitalIn the event this information is protected by the Federal Confidentiality of Alcohol and Drug Abuse Patient Records regulations: The Federal rules restrict any use of the information to criminally investigate or prosecute any alcohol or drug abuse patient.[facility] HospitalIn the event this information is protected by the Federal Confidentiality of Alcohol and Drug Abuse Patient Records regulations: The Federal rules restrict any use of the information to criminally investigate or prosecute any alcohol or drug abuse patient.[facility] HospitalIn the event this information is protected by the Federal Confidentiality of Alcohol and Drug Abuse Patient Records regulations: The Federal rules restrict any use of the information to criminally investigate or prosecute any alcohol or drug abuse patient.[facility] HospitalIn the event this information is protected by the Federal Confidentiality of Alcohol and Drug Abuse Patient Records regulations: The Federal rules restrict any use of the information to criminally investigate or prosecute any alcohol or drug abuse patient.[facility] HospitalIn the event this information is protected by the Federal Confidentiality of Alcohol and Drug Abuse Patient Records regulations: The Federal rules restrict any use of the information to criminally investigate or prosecute any alcohol or drug abuse patient.[facility] HospitalIn the event this information is protected by the Federal Confidentiality of Alcohol and Drug Abuse Patient Records regulations: The Federal rules restrict any use of the information to criminally investigate or prosecute any alcohol or drug abuse patient.[facility] HospitalIn the event this information is protected by the Federal Confidentiality of Alcohol and Drug Abuse Patient Records regulations: The Federal rules restrict any use of the information to criminally investigate or prosecute any alcohol or drug abuse patient.[facility] HospitalIn the event this information is protected by the Federal Confidentiality of Alcohol and Drug Abuse Patient Records regulations: The Federal rules restrict any use of the information to criminally investigate or prosecute any alcohol or drug abuse patient.[facility] HospitalIn the event this information is protected by the Federal Confidentiality of Alcohol and Drug Abuse Patient Records regulations: The Federal rules restrict any use of the information to criminally investigate or prosecute any alcohol or drug abuse patient.[facility] Reason for Visit (unrecogniz ed section and content) Reason Comments Physical Therapy Specialty Diagnoses / Procedures Referred By Contac t Referred To Contact [facility] Diagnoses Multiple sclerosis (HCC) Procedures CONSULT TO PHYSICAL THERAPY PHYSICAL THERAPY EVALUATION HIGH COMPLEX 45 MINS Tello Slaughter PA-C [address] [place] [address] [facility] [place] [address] [place] [address] Referral ID Status Reason Start Date Expiration Date Visits Requested Visits Authorized [id number] Authorized OON/Self Pay Override 07/04/2021 07/04/2022 99 99 Reason Comments PT Progress Note Specialty Diagnoses / Procedures Referred By Hiram pete Referred To Contact [facility] Diagnoses Multiple sclerosis, relapsing-remitting (HCC) Procedures MRI BRAIN WO/W IVCON MRI BRAIN BRAIN STEM W/O W/CONTRAST MATERIAL Tello Slaughter PA-C [address] [place] [address] Mr Imaging Referral ID Status Reason Start Date Expiration Date V isits Requested Visits Authorized [id number] Closed Auto-Generate d Referral 07/04/2021 08/03/2022 1 1 Reason Comments Refill Request Reason Comments PT Eval Patient Education Reason Comments Handicap Placard Script Reason Comments Rash x 3 weeks Reason Comments Medication Preauthorization Dimethyl Fum arate 240 mg. Reason Comments Established Patient Follow-Up Reason Comments Outside Labs Results [facility] Reason Comments Received Outside Medical Records [facility] Aldolase 01/28/2022 Reason Comments Outside Lab Results [facility] Reason Comments Follow Up Established Patient Reason Comments Orders Reason Comments Established Patient Follow-Up Reason Comments Received Outside Medical Records OSH off ice visit notes Reason Comments Patient Update Reason Comments Orders To discuss skin rash Reason Comments Facial Laceration Left eyebrow Reason Onset Date Comments Population Health Navigation Outreach 07/01/2023 ACO No PCP Reason Comments Established Patient Follow Up Reason Comments Appointment tired calling ludin freeman to get him scheduled for a follow up but the number did not work so sent mychart Reason Comments Med Change Request Specialty Diagnoses / Procedures Referred By Hiram pete Referred To Contact [facility] IMAG[facility] Diagnoses Multiple sclerosis (HCC) Procedures MRI BRAIN WO/W IVCON MRI BRAIN BRAIN STEM W/O W/CONTRAST MATERIAL Tello Slaughter PA-C [address] [place] [address] [place] [address] Referral ID Status Reason Start Date Expiration Date V isits Requested Visits Authorized [id number] Closed Auto-Generate d Referral 07/09/2022 08/08/2023 1 1 Reason Onset Date Comments Population Health Navigation Outreach 10/09/2023 ACO No PCP Reason Comments Appointment lvm for patient to c all so we can get him scheduled for a follow up Reason Comments Appointment lvm for patient to c all so we can get him scheduled for a followup with tello slaughter Reason Comments Received Outside Medical Records [facility] Car diology Reason Comments Received Outside Medical Records [facility] ED 11/20 Reason Comments Received Outside Medical Records [facility] Cardiac Cath Diagnostic 11/24/2023 Reason Comments Outside [facility]ghf-[facility]ik-GSI Ordered [facility] blood t ype Reason Comments Received Outside Medical Records [facility] Operative note 11/24/2023 [facility] X2 Reason Comments Received Outside Medical Records [facility] 01/02/24 Reason Comments Received Outside Medical Records [facility] Cardiothoracic Surgery Reason Comments Received Outside Medical Records [facility] Reason Comments Received Outside Medical Records [facility] Visit summary 04/01/2024 hospital f/u Reason Onset Date Comments Refill Request 04/21/2024 Reason Onset Date Comments Refill Request 04/22/2024 Reason Onset Date Comments Population Health Navigation Outreach 06/02/2024 [facility]SA Reason Onset Date Comments Population Health Navigation Outreach 07/07/2024 [facility] PCSA Reason Comments Received Outside Medical Records [facility] lab Reason Comments Established Patient Follow-Up Reason Comments Lab Orders Reason Onset Date Comments Population Health Navigation Outreach 09/08/2024 [facility]SA Reason Onset Date Comments Population Health Navigation Outreach 09/30/2024 [facility] Reason Comments Medicare Wellness Exam Care Teams (unrecognized sec tion and content) Gardener Florist Relationship Specialty Start Date End Date Laverne Monroe MD [address] [place], [place] [id number] PCP - General Family Practice 05/17/11 Gardener Florist Relationship Specialty Start Date End Date Laverne Monroe MD [address] [place], [place] [id number] PCP - General Family Practice 05/17/11 Gardener Florist Relationship Specialty Start Date End Date Laverne Monroe MD [address] [place], [place] [id number] PCP - General Family Practice 05/17/11 Gardener Florist Relationship Specialty Start Date End Date Laverne Monroe MD [address] [facility] [address] PCP - General Family Practice 05/17/11 Gardener Florist Relationship Specialty Start Date End Date Laverne Monroe MD [address] [place] [address], [place] [address] PCP - General Family Practice 05/17/11 Gardener Florist Relationship Specialty Start Date End Date Laverne Monroe MD [address] [place] [address], [place] [address] PCP - General Family Practice 05/17/11 Gardener Florist Relationship Specialty Start Date End Date Laverne Monroe MD [address] [place] [address], [place] [address] PCP - General Family Practice 05/17/11 Gardener Florist Relationship Specialty Start Date End Date Laverne Monroe MD [address] [place] [address], [place] [address] PCP - General Family Practice 05/17/11 Gardener Florist Relationship Specialty Start Date End Date Laverne Monroe MD [address] [place] [address], [place] [address] PCP - General Family Practice 05/17/11 Gardener Florist Relationship Specialty Start Date End Date Laverne Monroe MD [address] [place] [address], [place] [address] PCP - General Family Practice 05/17/11 Gardener Florist Relationship Specialty Start Date End Date Laverne Monroe MD [address] [place] [address], [place] [address] PCP - General Family Medicine 05/17/11 Gardener Florist Relationship Specialty Start Date End Date Laverne Monroe MD [address] [place] [address], [place] [address] PCP - General Family Medicine 05/17/11 Gardener Florist Relationship Specialty Start Date End Date Laverne Monroe MD [address] [place] [address] PCP - General Family Medicine 05/17/11 Gardener Florist Relationship Specialty Start Date End Date Laverne Monroe MD [address] [place] [address] PCP - General Family Medicine 05/17/11 Gardener Florist Relationship Specialty Start Date End Date Laverne Monroe MD [address] [id number] PCP - General Family Medicine 05/17/11 Gardener Florist Relationship Specialty Start Date End Date Laverne Monroe MD [address] [place] [address] PCP - General Family Medicine 05/17/11 Gardener Florist Relationship Specialty Start Date End Date Laverne Monroe MD [address] [place] [address] PCP - General Family Medicine 05/17/11 Gardener Florist Relationship Specialty Start Date End Date Laverne Monroe MD [facility] [place] [address] PCP - General Family Medicine 05/17/11 Gardener Florist Relationship Specialty Start Date End Date Laverne Monroe MD [address] [place] [address] PCP - General Family Medicine 05/17/11 Gardener Florist Relationship Specialty Start Date End Date Jaylan Marquis [address] [place] [id number] PCP - General 02/15/23 Gardener Florist Relationship Specialty Start Date End Date Laverne Monroe MD [address] [place] [address] [place] [address] PCP - General Family Medicine 10/09/23 Gardener Florist Relationship Specialty Start Date End Date Laverne Monroe MD [address] [place] [address] PCP - General Family Medicine 10/09/23 Gardener Florist Relationship Specialty [place] [address] [place] [id number] PCP - General Family Medicine 05/17/11 06/03/22 Gardener Florist Relationship Specialty Start Date End Date Laverne Monroe MD [address] [place] [address] PCP - General Family Medicine 10/09/23 Gardener Florist Relationship Specialty Start Date End Date Laverne Monroe MD [address] [place] [id number] PCP - General Family Medicine 05/17/11 06/03/22 Gardener Florist Relationship Specialty Start Date End Date Laverne Monroe MD [address] [place] [address] [place] [address] PCP - General Family Medicine 10/09/23 Gardener Florist Relationship Specialty Start Date End Date Laverne Monroe MD [address] [facility] [address] [place], [place] [phone] PCP - General Family Medicine 10/09/23 Gardener Florist Relationship Specialty Start Date End Date Laverne Monroe MD [address] [place] [address] [address] [place], [place] [phone] PCP - General Family Medicine 10/09/23 Gardener Florist Relationship Specialty Start Date End Date Laverne Monroe MD [address] [facility] [address] [place], [place] [phone] PCP - General Family Medicine 10/09/23 Gardener Florist Relationship Specialty Start Date End Date Laverne Monroe MD [address] [facility] [place] [address] PCP - General Family Medicine 10/09/23 Isaías Doe APRN.DIRECTOR OF PATIENT CARE [address] [facility] [place] [address] Cruise Staff Member Internal Medicine 03/21/24 Gardener Florist Relationship Specialty Start Date End Date Laverne Monore MD [address] [facility] [place] [address] PCP - General Family Medicine 10/09/23 Isaías Doe APRN.DIRECTOR OF PATIENT CARE [address] [facility] [address] [place], [place] [phone] Cruise Staff Member Internal Medicine 03/21/24 Gardener Florist Relationship Specialty Start Date End Date Laverne Monroe MD [address] [facility] [place] [address] PCP - General Family Medicine 10/09/23 Isaías Doe APRN.DIRECTOR OF PATIENT CARE [address] [facility] [address] [place], [place] [address] [phone] Cruise Staff Member Internal Medicine 03/21/24 Gardener Florist Relationship Specialty Start Date End Date Laverne Monroe MD [address] [facility] [place] [address] PCP - General Family Medicine 10/09/23 Isaías Doe EMPLOYMENT OFFICE CLERK.DIRECTOR OF PATIENT CARE [address] [facility] [place] [address] Cruise Staff Member Internal Medicine 03/21/24 Gardener Florist Relationship Specialty Start Date End Date Laverne Monroe MD [address] [facility] [place] [address] PCP - General Family Medicine 10/09/23 Isaías Doe EMPLOYMENT OFFICE CLERK.DIRECTOR OF PATIENT CARE [address] [facility] [place] [address] Cruise Staff Member Internal Medicine 03/21/24 Gardener Florist Relationship Specialty Start Date End Date Laverne Monroe MD [address] [facility] [place] [address] PCP - General Family Medicine 10/09/23 Isaías Doe, EMPLOYMENT OFFICE CLERK.DIRECTOR OF PATIENT CARE [address] [facility] [place] [address] Cruise Staff Member Internal Medicine 03/21/24 Gardener Florist Relationship Specialty Start Date End Date Laverne Monroe MD [address] [facility] [place] [address] PCP - General Family Medicine 10/09/23 Isaías Doe, EMPLOYMENT OFFICE CLERK.DIRECTOR OF PATIENT CARE [address] [facility] [place] [address] Cruise Staff Member Internal Medicine 03/21/24 Gardener Florist Relationship Specialty Start Date End Date Laverne Monroe MD [address] [facility] [place] [address] PCP - General Family Medicine 10/09/23 Isaías Doe EMPLOYMENT OFFICE CLERK.DIRECTOR OF PATIENT CARE [address] [facility] [address] [place], [place] [phone] Cruise Staff Member Internal Medicine 03/21/24 Team Status: Active Member Role Status Dates Dr. Wisam Monroe MD Primary Care Provider Active Team Status: Inactive Member Role Status Dates Dr. Wisam Monroe MD Primary Care Provider Active Start: April 12, 2024 End: April 13, 2024 Dr. Shravan Bernal MD Attending Provider Active S tart: April 12, 2024 End: April 13, 2024 Dr. Shravan Bernal MD Referring Provider Active S tart: April 12, 2024 End: April 13, 2024 Team Status: Inactive Member Role Status Dates Dr. Wisam Monroe MD Primary Care Provider Active Start: 2024 End: May 14, 2024 Dr. Shravan Bernal MD Attending Provider Active S tart: 2024 End: May 14, 2024 Dr. Shravan Bernal MD Referring Provider Active S tart: 2024 End: May 14, 2024 Team Status: Inactive Member Role Status Dates Dr. Wisam Monroe MD Primary Care Provider Active Start: July 27, 2024 End: July 27, 2024 Zeferino Lizarraga CAUSTICS LOADER, CAUSTICS LOADER-C Attending Provider Active S tart: July 27, 2024 End: July 27, 2024 Zeferino Lizarraga CAUSTICS LOADER, CAUSTICS LOADER-C Referring Provider Active S tart: July 27, 2024 End: July 27, 2024 Gardener Florist Relationship Specialty Start Date End Date Laverne Monroe MD [address] [facility] [address] [place], [place] [phone] PCP - General Family Medicine 10/09/23 Isaías Doe APRN.DIRECTOR OF PATIENT CARE [address] [facility] [address] [place], [place] [phone] Cruise Staff Member Internal Medicine 03/21/24 Gardener Florist Relationship Specialty Start Date End Date Laverne Monroe MD [address] [facility] [address] PCP - General Family Medicine 10/09/23 Isaías Doe APRN.DIRECTOR OF PATIENT CARE [address] [facility] [place] [address] Cruise Staff Member Internal Medicine 03/21/24 Gardener Florist Relationship Specialty Start Date End Date Laverne Monroe MD [address] [facility] [place] [address] PCP - General Family Medicine 10/09/23 Isaías Doe APRN.DIRECTOR OF PATIENT CARE [address] [facility] [place] [address] Cruise Staff Member Internal Medicine 03/21/24 Gardener Florist Relationship Specialty Start Date End Date Laverne Monroe MD [address] [facility] [place] [address] PCP - General Family Medicine 10/09/23 Isaías Doe EMPLOYMENT OFFICE CLERK.DIRECTOR OF PATIENT CARE [address] [facility] [place] [address] Cruise Staff Member Internal Medicine 03/21/24 Gardener Florist Relationship Specialty Start Date End Date Laverne Monroe MD [address] [facility] [place] [address] PCP - General Family Medicine 10/09/23 Isaías Doe EMPLOYMENT OFFICE CLERK.DIRECTOR OF PATIENT CARE [address] [facility] [address] [place], [place] [address] Cruise Staff Member Internal Medicine 03/21/24 Gardener Florist Relationship Specialty Start Date End Date Laverne Monroe MD [address] [facility] [address] [place], [place] [phone] PCP - General Family Medicine 10/09/23 Isaías Doe APRN.DIRECTOR OF PATIENT CARE [address] [facility] [address] [place], [place] [phone] Cruise Staff Member Internal Medicine 03/21/24 Gardener Florist Relationship Specialty Start Date End Date Laverne Monroe MD [address] [facility] [address] [place], [place] [phone] PCP - General Family Medicine 10/09/23 Isaías Doe EMPLOYMENT OFFICE CLERK.DIRECTOR OF PATIENT CARE [address] [facility] [address] [place], [place] [phone] Cruise Staff Member Internal Medicine 03/21/24 Gardener Florist Relationship Specialty Start Date End Date Laverne Monroe MD [address] [facility] [address] [place], [place] [address] PCP - General Family Medicine 10/09/23 Isaías Doe, EMPLOYMENT OFFICE CLERK.DIRECTOR OF PATIENT CARE [address] [facility] [address] [place], [place] [phone] Cruise Staff Member Internal Medicine 03/21/24 Gardener Florist Relationship Specialty Start Date End Date Laverne Monroe MD [address] [facility] [address] [place], [place] [address] PCP - General Family Medicine 10/09/23 Isaías Doe, EMPLOYMENT OFFICE CLERK.DIRECTOR OF PATIENT CARE [address] [facility] [address] [place], [place] [phone] Cruise Staff Member Internal Medicine 03/21/24 Gardener Florist Relationship Specialty Start Date End Date Laverne Monroe MD [address] [facility] [address] [place], [place] [phone] PCP - General Family Medicine 10/09/23 Isaías Doe APRN.DIRECTOR OF PATIENT CARE [address] [facility] [place] [address] Cruise Staff Member Internal Medicine 03/21/24 Goals (unrecognized section and content) Goals may be documented in a n alternate sectionGoals may be documented in an alternate section No data available for this section No data available for this sectionGoals may be documented in an alternate section (unrecognized sect ion and content) No Status Records FoundNo Status Records FoundNo Status Records FoundNo Status Records FoundNo Status Records FoundNo Status Records Found INFORMATION SOURCE (unrecogn ized section and content) DATE CREATED AUTHOR 04/05/2022 [facility] DATE CREATED AUTHOR AUTHOR'S ORGANIZ ATION 02/16/2023 [facility] DATE CREATED AUTHOR AUTHOR'S ORGANIZ ATION 12/05/2023 [facility] ([place]) DATE CREATED AUTHOR AUTHOR'S ORGANIZ ATION 01/08/2024 [facility] DATE CREATED AUTHOR AUTHOR'S ORGANIZ ATION 08/05/2024 [facility] DATE CREATED AUTHOR AUTHOR'S ORGANIZ ATION 01/06/2025 [facility] Scheduled Active and Recently Administ ered Medications (unrecognized section and content) Medication Order 02/13/2023 02/14/2023 02/15/2023 bacitracin ointment Topical, Once, On 02/15/23 at 1635, For 1 dose 1635 (Given - Provid er: Yamel Diaz RN) lidocaine (Xylocaine) 1 % injection 10 mL (COMPLETED) 10 mL, Infiltration, Once, On 02/15/23 at 1555, For 1 dose 1555 (Given - Provid er: Yamel Diaz RN - Comment: given by physician) FOR RECORDS PERTAINING TO PATIENTS WHO ARE OR HAVE BEEN ENROLLED IN A CHEMICAL DEPENDENCY/SUBSTANCEABUSE PROGRAM, SOME INFORMATION MAY BE OMITTED. This clinical summary was aggregated from multiple sources. Caution should be exercised in using it in the provision of clinical care. This summary normalizes information from multiple sources, and as a consequence, information in this document may materially change the coding, format and clinical context of patient data. In addition, data may be omitted in some cases. CLINICAL DECISIONS SHOULD BE BASED ON THE PRIMARY CLINICAL RECORDS. [facility]. provides no warranty or guarantee of the accuracy or completeness of information in this document.
[2025-02-01] MEDS: Pantoprazole Sodium 80 MG in 0.9% Normal Saline (100mL Bag) 80 ML 10 MG CONT INF (15:19)
--- OUTSIDE RECORDS SUMMARY | 2025-02-01 15:39 | XMS RPT_ITS | CCD ---
Author Organization [facility] Care Team Providers Care Lamp Shade Sewer Name Role Phone Laverne Monroe MD Primary Care Provider [phone] YOUNG, TELLO Referring Unavailable BESCOOBY, KAILEY Attending [...] Unavailable Laverne Monroe MD Primary Care Provider [phone] Unavailable Primary Care Provider Unavailabl e Inc, [facility] Primary Care Provider Unav KHOA Saalzar Attending Unavailable INC, [facility] Primary Care Unavailable [...] MICHAEL Licona Consulting Unavailkaylah MONROE MD, LAVERNE [facility] Care Unava ilable DEENA ENNIS Attending Unavailable Fer CARRILLO, Laverne Licona Primary Care Provider [phone] Brook JOURNEYMAN LEVEL ACOUSTIC ANALYST.SPORTS MANAGER, Isaías Unavailable [phone] Fer CARRILLO, Dr. Joel Primary Care Provider [phone] Gabe CARRILLO, Dr. Cheney Attending Provider Gabe CARRILLO, Dr. Cheney Referring Provider [phone] Roof VENDING TECHNICIAN-C, Zeferino Morales Attending Provider [phone] Elham VENDING TECHNICIAN-C, Zeferino Morales Referring Provider [phone] Koby Amaya Attending Unavailabl e [place], [place] Primary Care Unavailable Koby Amaya Attending Unavailabl e [place], [place] Primary Care Unavailable Raz Staples Admitting Unavailable Nacho Issa Attending Unavailable [place], [place] Primary Care Unavailable Raz Staples Consulting Unavailable Merlin Mathias Consulting Unavailabl e Kaydene Koby BAIRD Attending Unavailabl e [place], [place] Primary Care Unavailable Oledaliae Beau BAIRDbe Attending Unavailabl e [place], [place] Primary Care Unavailable Oledaliae Koby BAIRD Attending Unavailabl e [place], [place] Primary Care Unavailable Beau Leonardbe Attending Unavailable [place], [place] Primary Care Unavailable Roof VENDING TECHNICIAN, Zeferino Morales Attending Unavailable [place], Wisam Primary Care Unavailable [place], [place]am Referring Unavailable Tickton VENDING TECHNICIAN, Morelia Attending Unavailable [place], [place] Primary Care Unavailable Tickton VENDING TECHNICIAN, Morelia Attending Unavailable [place], [place] Primary Care Unavailable [place], [place] Primary Care Unavailable Gabe, Shravan Attending Unavailable Gabe, Shravan Referring Unavailable [place], [place] Primary Care Unavailable Gabe, Mecosta Attending Unavailable Gabe, Mecosta Referring Unavailable Roof VENDING TECHNICIAN, Zeferino Morales Attending Unavailable Roof VENDING TECHNICIAN, Zeferino H Referring Unavailable [place], [place] Primary Care Unavailable Gabe, Mecosta Attending Unavailable Gabe, Mecosta Referring Unavailable [place], [place] Primary Care Unavailable Roof VENDING TECHNICIAN, Zeferino H Attending Unavailable Roof VENDING TECHNICIAN, Zeferino H Referring Unavailable [place], [place] Primary Care Unavailable [place], [place] Primary Care Unavailable Gabe, Mecosta Attending Unavailable Gabe, Mecosta Referring Unavailable [place], [place] Primary Care Unavailable Gabe, Shravan Attending Unavailable Gabe, Shravan Referring Unavailable [place], [place] Primary Care Unavailable Gabe, Shravan Attending Unavailable Gabe, Shravan Referring Unavailable Camila VENDING TECHNICIANMorelia Attending Unavailable [place], [place] Primary Care Unavailable Oledaliae Beau BAIRDbe Attending Unavailabl e [place], [place] Primary Care Unavailable Oleghe OLSBeaube Attending Unavailabl e [place], [place] Primary Care Unavailable Camila VENDING TECHNICIAN, Morelia Attending Unavailable [place], [place] Primary Care Unavailable Oledaliae Beau BAIRDbe Attending Unavailabl e [place], [place] Primary Care Unavailable [place], [place] Referring Unavailable [place], [place] Primary Care Unavailable Adolph HUYNH, Capri Attending Unavailable Roof VENDING TECHNICIAN, Zeferino H Attending Unavailable [place], [place] Referring Unavailable [place], [place] Primary Care Unavailable [place], [place] Primary Care Unavailable Merlin Mathias Attending UnavailRaz Pearson Admitting Unavailable [place], [place] Primary Care Unavailable Merlin Mathias Attending UnavailRaz Pearson Consulting Unavailable Nacho Issa Consulting Unavailable Nacho Issa Attending Unavailable Jose Mathiasapradee Consulting Unavailabl e Gabe, Mecosta Attending Unavailable Oleghe BRIE Efewongbe Attending Unavailabl [...] Drug Allergy 10-22-2011 Rash, Other: See Comments [facility] Work Phone: Medications Current Medications Medication Drug [...] on above: TAKE 1 CAPSULE BY MO [facility] 2 TIMES A DAY ferrous gluconate 324 [...] contrast administration guidelines link polyethylene glycol 3350 65042 mg powder for oral solution (2 sources) Osmotic Laxative Start: 12-01-19 Miralax Powder Packet Oral, qDay, PRN Constipation, 0 Refill(s) Start Date: 12/01/23 Status: Ordered polyethylene glycol 3350 771374 mg / potassium chloride 2970 mg / sodium bicarbonate 6740 mg / sodium chloride 5860 mg / sodium sulfate 81042 mg powder for oral solution (2 sources) [...] on above: Take 1 capsule by mo [facility] twice daily. ergocalciferol 1.25 mg oral capsule (20 sources) Provitamin D2 Compound Start: 01-22-2019 End: 08-19-2024 take 1 capsule by mouth every week ergocalciferol 50,000 unit capsule (VITAMIN D2, DRISDOL) Take 1 capsule by mouth one time a week. 12 capsule 01/22/2019 08/19/2024 Discontinued Comment on above: Take 1 capsule by mo [facility] one time a week. folic acid 0.8 mg oral tablet (2 sources) Start: 12-01-2023 End: 12-15-2023 folic acid 0.8 mg oral tablet Dose : 0.8 mg = 1 tab(s), Oral, qDay, # 14 tab(s), 0 Refill(s), Pharmacy: [facility]/pharmacy #[id number], 183, cm, 11/24/23 17:48:00 EDT, [...] Coronary atherosclerosis; Translations: [Atherosclerotic heart disease of [place] coronary artery without angina pectoris] Onset: 11-24-2023 [...] Test Name Value Interpretation Reference Range Facility [facility] 01-04-2025 [facility] Telephone (BLAIR) JUANITA JAY ([id number]) 1955 M Date Time Provider Department 01/04/25 [...] would like a new prescription sent to [facility]. Jennifer Gibbs January 04, 2025 2:20 [...] and would like the prescription sent to [facility]. Patient will be going out of town this afternoon and would like to have the prescription before he leaves. Isaías Doe APRN.CNP 01/05/2025 10:35 AM Signed Rx sent to [facility] Isaías Doe APRN.SHIRA Requested Prescriptions Signed Prescriptions Disp Refills acyclovir (ZOVIRAX) 5 % ointment 30 g 1 Sig: Apply to affected area five times a day. Authorizing Provider: ISAÍAS DOE Pharmacy Information Pharmacy Address Telephone [facility]/pharmacy #[id number] [address] [place] [address] Elisha Anand LPN 01/05/2025 10:52 [...] Encounter Status:Closed by ELISHA ANAND on 01/05/25 [facility] Farhad 12-01-2024 KANDI Telephone ([facility]WADS) JUANITA JAY ([id number]) 1955 M Date Time Provider Department 12/01/24 [...] Encounter Status:Closed by DENITA HO on 12/01/24 [facility] CNOVon 11-10-2024 CNOV Office Visit ([facility]) JUANITA JAY ([id number]) 1955 M Date Time Provider Department 11/10/24 [...] performed over [address] hCu. - Denies any recent dermatological evaluations. - Has a living will. - Enjoys spending time outdoors, including trips to [place] in the winter. - Family history: Father lived to 93 years old. Multiple Sclerosis: - Managed by the [facility]. - Currently on Tecfidera; reports feeling well overall. - Experiencing balance issues, with a few minor falls. - Engages in physical therapy, swimming, and biking at [facility] to maintain leg strength. - Able to perform household tasks independently. 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 Coronary Artery Disease: - Experienced left arm pain while sitting in a recliner about a year ago, leading to hospitalization. - Underwent cardiac catheterization and subsequent CABG at [facility] by Dr. Hernandez. - Currently on Plavix. - No recent follow-up with machine grainer Dr. Petersen. Atrial Fibrillation: - Developed during [...] care at (more content not included)... Normal [facility] 25(OH)D3 SerPl-ncon 2024 25-hydroxyvitamin D3 [Mass/Vol] 37.9 ng/mL Normal 31.0-80.0 [facility] Comment on above: Order Comment: Speci men Type: BLOOD SPECIMEN [facility] Address: [address] [place] [address] Performed By: #### 1 989-3 #### [facility] CLIA [id number] [address] [place] [address] [place] 25-hydroxyvitamin D3 [Mass/V ol]on 08-19-2024 Interpretation and review of laboratory results Normal [facility] CBC W Auto Differential pane l (Bld)on 08-19-2024 Basophils (Bld) [#/Vol] 0.09 10*3/uL [facility] Basophils/100 WBC (Bld) 1.1 % [facility] Differential cell count method Nom (Bld) Auto [facility] Eosinophils (Bld) [#/Vol] 0.14 10*3/uL [facility] Eosinophils/100 WBC (Bld) 1.8 % [facility] Erythrocyte distribution width (RBC) [Ratio] 19.9 % High 11.5 - 15.0 % [facility] Hematocrit (Bld) [Volume fraction] 35.7 % Low 39.0 - 51.0 % [facility] Hemoglobin (Bld) [Mass/Vol] 10.2 g/dL Low 13.0 - 17.0 g/dL [facility] Immature granulocytes (Bld) [#/Vol] [facility] Immature granulocytes/100 WBC (Bld) 0.3 % [facility] Interpretation and review of laboratory results Abnormal [facility] Lymphocytes (Bld) [#/Vol] 1.48 10*3/uL [facility] Lymphocytes/100 WBC (Bld) 18.7 % [facility] MCH (RBC) [Entitic mass] 22.3 pg Low 26.0 - 34.0 pg [facility] MCHC (RBC) [Mass/Vol] 28.6 g/dL Low 30.5 - 36.0 g/dL [facility] MCV (RBC) [Entitic vol] 78.1 fL Low 80.0 - 100.0 fL [facility] Monocytes (Bld) [#/Vol] 0.95 10*3/uL High [facility] Monocytes/100 WBC (Bld) 12 % [facility] Neutrophils (Bld) [#/Vol] 5.22 10*3/uL [facility] Neutrophils/100 WBC (Bld) 66.1 % [facility] Nucleated RBC (Bld) [#/Vol] [facility] Nucleated RBC/100 WBC (Bld) [Ratio] 0 % /100 WBC [facility] Platelet mean volume (Bld) [Entitic vol] 9.7 fL 9.0 - 12.7 fL [facility] Platelets (Bld) [#/Vol] 474 10*3/uL High [facility] RBC (Bld) [#/Vol] 4.57 10*6/uL 4.20 - 6.0 0 m/uL [facility] WBC (Bld) [#/Vol] 7.9 10*3/uL [facility] Basophils (Bld) [#/Vol] 0.09 10*3/uL Normal <0.11 [facility] Comment on above: Order Comment: Speci men Type: BLOOD SPECIMEN [facility] Address: [address] [place] [address] Performed By: #### 1 989-3 #### [facility] CLIA [id number] [address] [place] [address] [place] Basophils/100 WBC (Bld) 1.1 % Normal C [facility] Comment on above: Order Comment: Speci men Type: BLOOD SPECIMEN [facility] Address: [address] [place] [address] Performed By: #### 1 989-3 #### [facility] CLIA [id number] [address] [place] [address] [place] Differential cell count method Nom (Bld) Auto Normal [facility] Comment on above: Order Comment: Speci men Type: BLOOD SPECIMEN [facility] Address: [address] [place] [address] Performed By: #### 1 989-3 #### [facility] CLIA [id number] [address] [place] [address] [place] Eosinophils (Bld) [#/Vol] 0.14 10*3/uL Normal <0.46 [facility] Comment on above: Order Comment: Speci men Type: BLOOD SPECIMEN [facility] Address: [address] [place] [address] Performed By: #### 1 989-3 #### [facility] CLIA [id number] [address] [place] [address] [place] Eosinophils/100 WBC (Bld) 1.8 % Normal [facility] Comment on above: Order Comment: Speci men Type: BLOOD SPECIMEN [facility] Address: [address] [place] [address] Performed By: #### 1 989-3 #### [facility] CLIA [id number] [address] [place] [address] [place] Erythrocyte distribution width (RBC) [Ratio] 19.9 % High 11.5-15.0 [facility] Comment on above: Order Comment: Speci men Type: BLOOD SPECIMEN [facility] Address: [address] [place] [address] Performed By: #### 1 989-3 #### [facility] CLIA [id number] [address] [place] [address] [place] Hematocrit (Bld) [Volume fraction] 35.7 % Low 39.0-51.0 [facility] Comment on above: Order Comment: Speci men Type: BLOOD SPECIMEN [facility] Address: [address] [place] [address] Performed By: #### 1 989-3 #### [facility] CLIA [id number] [address] [place] [address] [place] Hemoglobin (Bld) [Mass/Vol] 10.2 g/dL Low 13.0-17.0 [facility] Comment on above: Order Comment: Speci men Type: BLOOD SPECIMEN [facility] Address: [address] [place] [address] Performed By: #### 1 989-3 #### [facility] CLIA [id number] [address] [place] [address] [place] Immature granulocytes (Bld) [#/Vol] 10*3/uL Normal <0.10 [facility] Comment on above: Order Comment: Speci men Type: BLOOD SPECIMEN [facility] Address: [address] [place] [address] Performed By: #### 1 989-3 #### [facility] CLIA [id number] [address] [place] [address] [place] Immature granulocytes/100 WBC (Bld) 0.3 % Normal [facility] Comment on above: Order Comment: Speci men Type: BLOOD SPECIMEN [facility] Address: [address] [place] [address] Performed By: #### 1 989-3 #### [facility] CLIA [id number] [address] [place] [address] [place] Lymphocytes (Bld) [#/Vol] 1.48 10*3/uL Normal 1.00-4.00 [facility] Comment on above: Order Comment: Speci men Type: BLOOD SPECIMEN [facility] Address: [address] [place] [address] Performed By: #### 1 989-3 #### [facility] CLIA [id number] [address] [place] [address] [place] Lymphocytes/100 WBC (Bld) 18.7 % Normal [facility] Comment on above: Order Comment: Speci men Type: BLOOD SPECIMEN [facility] Address: [address] [place] [address] Performed By: #### 1 989-3 #### [facility] CLIA [id number] [address] [place] [address] [place] MCH (RBC) [Entitic mass] 22.3 pg Low 26.0-34.0 [facility] Comment on above: Order Comment: Speci men Type: BLOOD SPECIMEN [facility] Address: [address] [place] [address] Performed By: #### 1 989-3 #### [facility] CLIA [id number] [address] [place] [address] [place] MCHC (RBC) [Mass/Vol] 28.6 g/dL Low 30.5-36.0 [facility] Comment on above: Order Comment: Speci men Type: BLOOD SPECIMEN [facility] Address: [address] [place] [address] Performed By: #### 1 989-3 #### [facility] CLIA [id number] [address] [place] [address] [place] MCV (RBC) [Entitic vol] 78.1 fL Low 80.0-100.0 C [facility] Comment on above: Order Comment: Speci men Type: BLOOD SPECIMEN [facility] Address: [address] [place] [address] Performed By: #### 1 989-3 #### [facility] CLIA [id number] [address] [place] [address] [place] Monocytes (Bld) [#/Vol] 0.95 10*3/uL High <0.87 [facility] Comment on above: Order Comment: Speci men Type: BLOOD SPECIMEN [facility] Address: [address] [place] [address] Performed By: #### 1 989-3 #### [facility] CLIA [id number] [address] [place] [address] [place] Monocytes/100 WBC (Bld) 12.0 % Normal C [facility] Comment on above: Order Comment: Speci men Type: BLOOD SPECIMEN [facility] Address: [address] [place] [address] Performed By: #### 1 989-3 #### [facility] CLIA [id number] [address] [place] [address] [place] Neutrophils (Bld) [#/Vol] 5.22 10*3/uL Normal 1.45-7.50 [facility] Comment on above: Order Comment: Speci men Type: BLOOD SPECIMEN [facility] Address: [address] [place] [address] Performed By: #### 1 989-3 #### [facility] CLIA [id number] [address] [place] [address] [place] Neutrophils/100 WBC (Bld) 66.1 % Normal [facility] Comment on above: Order Comment: Speci men Type: BLOOD SPECIMEN [facility] Address: [address] [place] [address] Performed By: #### 1 989-3 #### [facility] CLIA [id number] [address] [place] [address] [place] Nucleated RBC (Bld) [#/Vol] 10*3/uL Normal <0.01 [facility] Comment on above: Order Comment: Speci men Type: BLOOD SPECIMEN [facility] Address: [address] [place] [address] Performed By: #### 1 989-3 #### [facility] CLIA [id number] [address] [place] [address] [place] Nucleated RBC/100 WBC (Bld) [Ratio] 0.0 /100 WBC Normal [facility] Comment on above: Order Comment: Speci men Type: BLOOD SPECIMEN [facility] Address: [address] [place] [address] Performed By: #### 1 989-3 #### [facility] CLIA [id number] [address] [place] [address] [place] Platelet mean volume (Bld) [Entitic vol] 9.7 fL Normal 9.0-12.7 [facility] Comment on above: Order Comment: Speci men Type: BLOOD SPECIMEN [facility] Address: [address] [place] [address] Performed By: #### 1 989-3 #### [facility] CLIA [id number] [address] [place] [address] [place] Platelets (Bld) [#/Vol] 474 10*3/uL High 150-400 [facility] Comment on above: Order Comment: Speci men Type: BLOOD SPECIMEN [facility] Address: [address] [place] [address] Performed By: #### 1 989-3 #### [facility] CLIA [id number] [address] [place] [address] [place] RBC (Bld) [#/Vol] 4.57 10*6/uL Normal 4.20-6.00 [facility] Comment on above: Order Comment: Speci men Type: BLOOD SPECIMEN [facility] Address: [address] [place] [address] Performed By: #### 1 989-3 #### [facility] CLIA [id number] [address] [place] [address] [place] WBC (Bld) [#/Vol] 7.90 10*3/uL Normal 3.70-11.00 [facility] Comment on above: Order Comment: Speci men Type: BLOOD SPECIMEN [facility] Address: [address] [place] [address] Performed By: #### 1 989-3 #### [facility] CLIA [id number] [address] [place] [address] [place] CNOVon 08-19-2024 [facility] JUAN[facility] ([id number]) 1955 M Date Time Provider Department [facility]24 12[facility]30 [facility] today, we recorded the [...] BLOOD COUNT AND DIFFERENTIAL [SQCBCDIF] Order #: [id number]. #:[id number] VITAMIN D 25 HYDROXY [SQVITD] Order #: [id number]. #:[id number] Prescriptions as of 08/19/2024 - iv contrast [...] Status:Closed by IZZY MENDOZA on 08/19/24 Normal [facility] CNOV Office Visit ([facility]) JUANITA JAY ([id number]) 1955 Date Time Provider Department 08/19/24 11:15 AM TELLO SLAUGHTER During your visit today, we recorded the following information about you: Pulse Blood pressure Weight Height 90/minute 117/63 78.5 kg 1.829 m Tello Slaughter PA-C 08/19/2024 12:26 PM [facility] MULTIPLE SCLEROSIS FOLLOWUP/ESTABLISHED PATIENT VISIT Principal Neurologic [...] overall feeling stable. Granddaughter got Went to [place] in May, had a pain epigastric area - went to hospital and they did scope - had a bleeding ulcer - cauterized the bleed - hospitalized for 5 days - stopped the Aleve/Excedrin (source of the ulcer) Got new glasses after home from [place] Stubbed toe - tripped and fell and broke glasses - poked right eye with stem of glasses and caused black eye on right Saw cardiology 1 week ago at [facility] - said all looked okay - metoprolol on hold x 6 months Denies seizure activity Denies new MS symptoms - balance gradually worse Started going back to the gym and riding bike again SUBJECTIVE AND REVIEW OF SYSTEMS: Neuro-QoL Functions (higher=better functioning) Flowsheet [facility] Office Visit from 08/19/[address] [facility] Office Visit from 07/09/[address] [facility] Office Visit from 01/08/[address] [facility] Upper Extremity Domain T Score 43.47 48.65 46 Lower Extremity Domain T Score 36.12 34.28 37 Cognitive Function Domain T Score 49.89 47.66 49 Positive Affect Well Being T Score -- -- -- Ability To Participate In Social Roles T Score 44.12 41.16 42 Satisfaction With Social Roles T Score 39.83 62.19 45 Neuro-QoL Symptoms (higher=worse symptoms) [facility] [facility] Office Visit from 07/09/[address] [facility] Office Visit from 01/08/[address] [facility] Sleep Domain T Score 51.07 52.89 48 Fatigue Domain T Score 39.32 47.6 49 Anxiety Domain T Score 41.05 43.16 46 Depression Domain T Score 44.02 48.71 48 Stigma Domain T Score 55.76 58.45 45 Emotional Behavior Dyscontrol T Score -- -- -- *NeuroQoL is a multi-domain patient-reported quality of life questionnaire. PHQ-9 Flowsheet [facility] Office Visit from 07/04/2023 in Neurology Office Visit from 04/03/2022 in Neurology PHQ-9 Score 4 2 *PHQ-9 is a questionnaire for depressive symptoms, with scores 0-4 indicating none, 5-9 mild, 10-14 moderate, 15-19 moderately severe, and 20-27 severe symptoms. PROMIS-10 Flowsheet Row Office Visit from 07/04/2023 in Neurology Office Visit from 01/08/[address] [facility] Global Physical Health T Score 34.9 42.3 [...] SPLENECTOMY PAST SURGICAL HISTORY OF 1973 Splenectomy [facility] post trauma MEDICATIONS and ALLERGIES were [...] Flowsheet Row Office Visit from 08/19/[address] [facility] Office Visit from 07/09/[address] [facility] Office Visit from 01/08/[address] [facility] Processing Speed Total Number Correct 35 34 31 Processing Speed Z score 0.05 -0.16 -0.49 Dominant (more content not included)... Normal [facility] Laboratory - Chemistry and C hemistry - challengeon 08-19-2024 25-hydroxyvitamin D3 [Mass/Vol] 37.9 ng/mL 31.0 - 80.0 ng/mL [facility] Cardiology Visit Reporton Cardiology Visit Report [facility] [address] [place], [place] [address] OFFICE VISIT Date of Service: 08/03/24 MR#: [id number] Acct: [id number] Name: JUANITA JAY Rep #: [id number] : 1955 Provider: RODNEY bridges Age/Sex: 69/M [place] [facility] Status: Signed HPI HPI History of Present [...] He proceeded with CABG x [address] [facility] [address] Henry with a WILLETT to LAD and reverse SVG to diagonal 1. Carotid ultrasound prior to surgery showed no significant carotid artery disease. He developed postoperative atrial fibrillation and was started on amiodarone per protocol. He received 1 unit of blood postop day 3. He converted to sinus rhythm prior to discharge. He states he was in [place] in May, and was admitted to a [...] (%) 100 Intake Visit Reasons: 5 M Insulation Cutter Required: No Is patient in pain?: No [...] fibrillation Leptospirosis Atherosclerosis of coronary artery of [place] heart without angina pectoris Seizures Multiple sclerosis [...] Appearance: cooperativ (more content not included)... Normal [facility]had 07-29-2024 [facility] Telephone (FPWADS) JUANITA JAY ([id number]) 1955 M Date Time Provider Department 07/29/24 LAVERNE MONROE During your visit today, we recorded the following information about you: Elisha Anand LPN 07/29/2024 8:40 AM Signed Received lab results [facility]. Placed in provider's inbox for review. Route to [place] scanning Entered into pt chart. Allergies As of Date: 07/29/2024 Noted Allergy Reaction CARBAMAZEPINE 10/22/2011 2 - Rash 14 - Other: See Comments Comments: Acute urinary retention Date Reviewed: 02/05/2024 Reviewed by: Zara Nicholas OCCA - Fully Assessed Reason for Visit: Received Outside Medical Records [1859] Cmt: [facility] lab Order(s):HEPATIC FUNCTION PANEL (AK,AV,EU,FV,HL,MARLENY,M M,SP) [[id number]] Order #: [id number] TOTAL CHOLESTEROL [SQCHOL] Order #: [id number] LIPID PANEL, STANDARD [[id number]] Order #: [id number] Prescriptions as of 07/29/2024 - tiZANidine (ZANAFLEX) [...] Status:Closed by ELISHA ANAND on 07/29/24 Normal [facility] Bilirubin directon 5 Bilirubin.direct [Mass/Vol] 0.18 mg/dL Normal 0.00-0.30 [facility] Comment on above: Performed By: #### L 500.3400, L500.4100 #### [facility] [place], [address] Bilirubin, totalon 5 Bilirubin [Mass/Vol] 0.46 mg/dL Normal 0.00-1.30 [facility] Comment on above: Performed By: #### L 500.3400, L500.4100 #### [facility] [address] [place], [address] Calculated very low density lipoprotein (VLDL) cholesterol measurementOrdered By: Zeferino Lizarraga on 07-27-2024 VLDL Cholesterol 16 mg/dL 5-40 [facility] HEPATIC FUNCTION PANEL (AK,A V,EU,FV,HL,MARLENY,MM,SP)on 07-27-2024 GLOBULIN 3.3 [facility] LDL calc ser/plasOrdered By: Zeferino Lizarraga on 07-27-2024 LDL Cholesterol, Calculated 47 mg/dL [facility] Comment on above: Mugmnnlzfn=740-150 m g/dL & Higher Ifve=324 mg/dL or greater LIPID PANEL, STANDARDon 07-13 HDL/Chol Ratio 2.18 [facility] VLDL Cholesterol 16 [facility] Lipid Profileon 07-27-2024 CHOL:HDL 2.18 Normal [facility] Comment on above: Performed By: #### L 500.3400, L500.4100 #### [facility] [address] [place], [address] Cholesterol in LDL [Mass/Vol] 47 mg/dL Normal [facility] Comment on above: Result Comment: Bord zeuuui=037-018 mg/dL Higher Ncvc=986 mg/dL or greater Performed By: #### L 500.3400, L500.4100 #### [facility] [address] [place], [address] Cholesterol in VLDL [Mass/Vol] 16 mg/dL Normal - [facility] Comment on above: Performed By: #### L 500.3400, L500.4100 #### [facility] [address] [place], [address] Liver Profileon 07-27-2024 Alk Phos 126 U/L Normal 40-129 [facility] Comment on above: Performed By: #### L 500.3400, L500.4100 #### [facility] [address] [place], [address] Globulin (S) [Mass/Vol] 3.3 g/dL Normal 2.2-4.2 [facility] Comment on above: Performed By: #### L 500.3400, L500.4100 #### [facility] [address] [place], [address] T PROT 7.9 g/dL Normal 5.9-8.4 [facility] Comment on above: Performed By: #### L 500.3400, L500.4100 #### [facility] [address] [place], [address] AST [Catalytic activity/Vol] 29 U/L Normal <=37 [facility] Comment on above: Performed By: #### L 500.3400, L500.4100 #### [facility] [address] [place], [address] No Panel Informationon 07-27 [facility] Screening total cholesterol/ high density lipoprotein (HDL) cholesterol ratioOrdered By: Zeferino Lizarraga on 07-27-2024 Cholesterol.total/Trini sterol in HDL [Mass ratio] 2.18 {ratio} [facility] Serum globulin measurementOr dered By: Zeferino Lizarraga on 07-27-2024 Globulin (S) [Mass/Vol] 3.3 g/dL 2.2-4.2 [facility] Serum or plasma alanine varma otransferase (ALT) measurementon 07-27-2024 ALT [Catalytic activity/Vol] 23 U/L Normal <=46 [facility] Comment on above: Performed By: #### L 500.3400, L500.4100 #### [facility] [address] [place], [address] Serum or plasma albumin naila urement (mass/volume)on 07-27-2024 Albumin [Mass/Vol] 4.6 g/dL Normal 3.4-4.8 [facility] Comment on above: Performed By: #### L 500.3400, L500.4100 #### [facility] [address] [place], [place], [address] Serum or plasma alkaline brooks sphatase measurementOrdered By: Zeferino Lizarraga on 07-27-2024 ALP [Catalytic activity/Vol] 126 U/L 40-129 [facility] Serum or plasma cholesterol in HDL measurement (mass/volume)on 07-27-2024 Cholesterol in HDL [Mass/Vol] 53 mg/dL Normal [facility] Comment on above: National Cholesterol Education Program [...] Performed By: #### L 500.3400, L500.4100 #### [facility] [address] [place], [address] Serum or plasma cholesterol measurement (mass/volume)on 07-27-2024 Cholesterol [Mass/Vol] 115 mg/dL Normal <=200 [facility] Comment on above: Cholesterol level, D esirable <200 mg/dLBorderline high cholesterol 200-239 mg/dLHigh cholesterol >=240 mg/dLRecommendations of the NCEP Adult Treatment Panel for the following risk-cutoff thresholds for the [place] population. Result Comment: Chol esterol level, Desirable <200 mg/dL Borderline high cholesterol 200-239 mg/dL High cholesterol >=240 mg/dL Recommendations of the NCEP Adult Treatment Panel for the following risk-cutoff thresholds for the [place] population. Performed By: #### L 500.3400, L500.4100 #### [facility] [address] [facility] [place], [place], [address] Total proteinon 07-27-2024 Protein [Mass/Vol] 7.9 g/dL [...] Performed By: #### L 500.3400, L500.4100 #### [facility] [address] [place], [address] [facility] 05-03-2024 [facility] Telephone (NETNAV) JUANITA JAY ([id number]) 1955 M Date Time Provider Department 05/03/24 [...] Status:Closed by WILMA JASSO on 05/03/24 Normal [facility] 04-05-2024 [facility] MISTYJUANITA ([id number]) 1955 M Date Time Provider Department 04/05/24 LAVERNE MONROE During your visit today, we recorded the following information about you: Sara Madrigal LPN 04/05/2024 2:04 PM Signed Received 04/02/2024 from [facility]. Placed in provider's inbox for review. Route to [place] for scanning. Allergies As of Date: 04/05/2024 Noted Allergy Reaction CARBAMAZEPINE 10/22/2011 2 - Rash 14 - Other: See Comments Comments: Acute urinary retention Date Reviewed: 02/05/2024 Reviewed by: Zara Nicholas OCCA - Fully Assessed Reason for Visit: Received Outside Medical Records [0631] Cmt: [facility] Visit summary 04/01/2024 hospital [...] Encounter Status:Closed by SARA MADRIGAL on 04/05/24 [facility] 04-01-2024 [facility] Telephone (BLAIR) JUANITA JAY ([id number]) 1955 M Date Time Provider Department 04/01/24 LAVERNE MONROE During your visit today, we recorded the following information about you: Elisha Anand LPN 04/01/2024 4:05 PM Signed Received lab results [facility]. Placed in provider's inbox for review. Route to [place] scanning Allergies As of Date: 04/01/2024 Noted Allergy Reaction CARBAMAZEPINE 10/22/2011 2 - Rash 14 - Other: See Comments Comments: Acute urinary retention Date Reviewed: 02/05/2024 Reviewed by: Zara Nicholas OCCA - Fully Assessed Reason for Visit: Outside Labs Results [437] Cmt: [facility] Order(s):HEPATIC FUNCTION PANEL (AK,AV,EU,FV,HL,MARLENY,M M,SP) [[id number]] Order #: [id number] LIPID PANEL BASIC (AK,AV,EU,FV,HL,MARLENY,M M,SP) [0254860] Order #: [id number] Prescriptions as of 04/01/2024 - atorvastatin (LIPITOR) [...] Status:Closed by ELISHA ANAND on 04/01/24 Normal [facility] Cardiology Visit Reporton Cardiology Visit Report [facility] [address] [place] [address] OFFICE VISIT Date of Service: 04/01/24 MR#: [id number] Acct: [id number] Name: JUANITA JAY Rep #: [id number] : 1955 Provider: RODNEY robertson Age/Sex: 68/M [place] [facility] Status: Signed HPI HPI History of Present [...] He proceeded with CABG x [address] [facility] [address]. 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 Normal [facility] HEPATIC FUNCTION PANEL (AK,A V,EU,FV,HL,MARLENY,MM,SP)on 03-24-2024 Alk Phos 134 U/L 50 - 136 U/L [facility] Bilirubin [Mass/Vol] 0.5 mg/dL 0.0 - 1 .0 mg/dL [facility] GLOBULIN 3.6 [facility] Protein [Mass/Vol] 7.6 g/dL [facility] LIPID PANEL BASIC (AK,AV,EU, FV,HL,MARLENY,MM,SP)on 03-24-2024 Interpretation and review of laboratory results Abnormal [facility] VLDL Cholesterol 31 [facility] Lipid Profileon 03-24-2024 Cholesterol [Mass/Vol] 121 mg/dL Normal 200 [facility] Comment on above: Result Comment: <200 mg/dL Desirable 200-240 mg/dL Borderline >240 mg/dL High Risk Performed By: #### L 500.3400, L500.4100 ####[facility] [address] [place], [address] Cholesterol in HDL [Mass/Vol] 50 mg/dL Normal [facility] Comment on above: Result Comment: The drugs N-Acetylcysteine and Metamizole may falsely depress this assay. Reference Range HDL <40 mg/dL Low HDL Cholesterol HDL >or= 60 mg/dL High HDL Cholesterol Performed By: #### L 500.3400, L500.4100 ####[facility] [address] [place], [address] Cholesterol in LDL [Mass/Vol] 40 mg/dL Normal 0-130 [facility] Comment on above: Performed By: #### L 500.3400, L500.4100 ####[facility] [address] [place], [address] Cholesterol in VLDL [Mass/Vol] 31 mg/dL Normal 5-40 [facility] Comment on above: Performed By: #### L 500.3400, L500.4100 ####[facility] [address] [place], [address] Triglyceride [Mass/Vol] 155 mg/dL Normal [facility] Comment on above: Result Comment: The drugs N-Acetylcysteine and Metamizole may falsely depress this assay. Serum Triglycerides Reference Interval Normal <150 mg/dL Borderline high 150 - 199 mg/dL High 200 - 499 mg/dL Very High > or = 500 mg/dL Performed By: #### L 500.3400, L500.4100 ####[facility] [address] [place], [address] Liver Profileon 03-24-2024 Albumin [Mass/Vol] 4.0 g/dL Normal 3.2-5.0 [facility] Comment on above: Performed By: #### L 500.3400, L500.4100 ####[facility] [address] [place], [address] ALK P 134 U/L High 45-117 [facility] Comment on above: Performed By: #### L 500.3400, L500.4100 ####[facility] [address] [place], [address] ALT [Catalytic activity/Vol] 32 U/L Normal 16-61 [facility] Comment on above: Performed By: #### L 500.3400, L500.4100 ####[facility] [address] [place], [address] AST [Catalytic activity/Vol] 23 U/L Normal 15-37 [facility] Comment on above: Performed By: #### L 500.3400, L500.4100 ####[facility] [address] [place], [address] Bilirubin [Mass/Vol] 0.50 mg/dL Normal 0.20-1.00 [facility] Comment on above: Result Comment: For patients on eltrombopag therapy, use of Dimension [place] TBIL is not recommended. Performed By: #### L 500.3400, L500.4100 ####[facility] [address] [place], [address] Bilirubin.direct [Mass/Vol] 0.14 mg/dL Normal 0.00-0.30 [facility] Comment on above: Performed By: #### L 500.3400, L500.4100 ####[facility] [address] [place], [address] Globulin (S) [Mass/Vol] 3.6 g/dL Normal 2.2-4.2 [facility] Comment on above: Performed By: #### L 500.3400, L500.4100 ####[facility] [address] [place], [address] T PROT 7.6 g/dL Normal 6.4-8.2 [facility] Comment on above: Performed By: #### L 500.3400, L500.4100 ####[facility] [address] [place], [address] No Panel Informationon 03-24 [facility] 25(OH)D3 SerPl-mCncon 2023 25-hydroxyvitamin D3 [Mass/Vol] 31.0 ng/mL Normal 31.0-80.0 [facility] Comment on above: Order Comment: Susi padilla Type: BLOOD SPECIMEN [facility] Address: [address] [place] [address] Result Comment: Clas sification of 25 [place] Vitamin D status: Deficiency/Insufficiency: < or = 30 ng/ml. Sufficiency/Optimal Levels: 31-80 ng/mL Toxicity: > 100 ng/mL. Test performed by chemiluminescent immunoassay. Performed By: #### 1 989-3 #### [facility] CLIA [id number] [address] [place] [address] [place] CBC W Auto Differential pane l (Bld)on 02-06-2024 Anisocytosis Ql (Bld) Present Normal [facility] Comment on above: Order Comment: Susi padilla Type: BLOOD SPECIMEN [facility] Address: [address] [place] [address] Performed By: #### 5 7021-8 #### [facility] CLIA [id number] [facility] [place] [address] [place] [facility] CLIA [id number] [address] [place] [address] [place] Basophils (Bld) [#/Vol] 0.00 10*3/uL Normal <0.11 [facility] Comment on above: Order Comment: Susi padilla Type: BLOOD SPECIMEN [facility] Address: [address] [place] [address] Performed By: #### 5 7021-8 #### JANENECHITRA [facility] CLIA [id number] [facility] [place] [address] [place] [facility] CLIA [id number] [address] [place] [address] [place] Basophils/100 WBC (Bld) 0.0 % Normal C [facility] Comment on above: Order Comment: Speci men Type: BLOOD SPECIMEN [facility] Address: [address] [id number] Performed By: #### 5 7021-8 #### [facility] CLIA [id number] [address] [place] [address] [place] [facility] CLIA [id number] [place] [address] [place] Differential cell count method Nom (Bld) Manual Normal [facility] Comment on above: Order Comment: Speci men Type: BLOOD SPECIMEN [facility] Address: [address] [place] [address] Performed By: #### 5 7021-8 #### JANENECHITRA [facility] CLIA [id number] [address] [place] [address] [place] [facility] CLIA [id number] [address] [place] [address] [place] Eosinophils (Bld) [#/Vol] 0.00 10*3/uL Normal <0.46 [facility] Comment on above: Order Comment: Speci men Type: BLOOD SPECIMEN [facility] Address: [address] [place] [address] Performed By: #### 5 7021-8 #### JANENECHITRA [facility] CLIA [id number] [address] [place] [address] [place] [facility] CLIA [id number] [address] [place] [address] [place] Eosinophils/100 WBC (Bld) 0.0 % Normal [facility] Comment on above: Order Comment: Speci men Type: BLOOD SPECIMEN [facility] Address: [address] [place] [address] Performed By: #### 5 7021-8 #### [facility] CLIA [id number] [facility] [place] [address] [facility] CLIA [id number] [address] [place] [address] [place] Erythrocyte distribution width (RBC) [Ratio] 20.2 % High 11.5-15.0 [facility] Comment on above: Order Comment: Speci men Type: BLOOD SPECIMEN [facility] Address: [address] [place] [address] Performed By: #### 5 7021-8 #### [facility] CLIA [id number] [address] [place] [address] [place] [facility] CLIA [id number] [address] [place] [address] [place] Hematocrit (Bld) [Volume fraction] 46.6 % Normal 39.0-51.0 [facility] Comment on above: Order Comment: Speci men Type: BLOOD SPECIMEN [facility] Address: [address] [place] [address] Performed By: #### 5 7021-8 #### [facility] CLIA [id number] [address] [place] [address] [place] [facility] CLIA [id number] [address] [place] [address] [place] Hemoglobin (Bld) [Mass/Vol] 14.5 g/dL Normal 13.0-17.0 [facility] Comment on above: Order Comment: Speci men Type: BLOOD SPECIMEN [facility] Address: [address] [place] [address] Performed By: #### 5 7021-8 #### [facility] CLIA [id number] [address] [place] [address] [facility] CLIA [id number] [address] [place] [address] [place] Lymphocytes (Bld) [#/Vol] 1.50 10*3/uL Normal 1.00-4.00 [facility] Comment on above: Order Comment: Speci men Type: BLOOD SPECIMEN [facility] Address: [address] [place] [address] Performed By: #### 5 7021-8 #### JANENECHITRA [facility] CLIA [id number] [address] [place] [address] [id number] [place] [address] [place] Lymphocytes/100 WBC (Bld) 17.0 % Normal [facility] Comment on above: Order Comment: Speci men Type: BLOOD SPECIMEN [facility] Address: [address] [place] [address] Performed By: #### 5 7021-8 #### CHAYITOSHAZIA [facility] CLIA [id number] [address] [place] [address] [place] [facility] [id number] [address] [place] [address] [place] MCH (RBC) [Entitic mass] 28.0 pg Normal 26.0-34.0 [facility] Comment on above: Order Comment: Speci men Type: BLOOD SPECIMEN [facility] Address: [address] [place] [address] Performed By: #### 5 7021-8 #### [facility] CLIA [id number] [address] [place] [address] [place] [facility] CLIA [id number] [address] [place] [address] [place] MCHC (RBC) [Mass/Vol] 31.1 g/dL Normal 30.5-36.0 [facility] Comment on above: Order Comment: Speci men Type: BLOOD SPECIMEN [facility] Address: [address] [place] [address] Performed By: #### 5 7021-8 #### [facility] CLIA [id number] [address] CLIA [id number] [address] [place] [address] [place] MCV (RBC) [Entitic vol] 90.0 fL Normal 80.0-100.0 C [facility] Comment on above: Order Comment: Speci men Type: BLOOD SPECIMEN [facility] Address: [address] [place] [address] Performed By: #### 5 7021-8 #### [facility] CLIA [id number] [address] [place] [address] [place] [facility] CLIA [id number] [address] [place] [address] [place] Monocytes (Bld) [#/Vol] 0.88 10*3/uL High <0.87 [facility] Comment on above: Order Comment: Speci men Type: BLOOD SPECIMEN [facility] Address: [address] [place] [address] Performed By: #### 5 7021-8 #### [facility] CLIA [id number] [address] [place] [address] [place] [facility] CLIA [id number] [address] [place] [address] [place] Monocytes/100 WBC (Bld) 10.0 % Normal C [facility] Comment on above: Order Comment: Speci men Type: BLOOD SPECIMEN [facility] Address: [address] [place] [address] Performed By: #### 5 7021-8 #### [facility] CLIA [id number] [address] [place] [address] [place] [facility] CLIA [id number] [address] [place] [address] [place] Neutrophils (Bld) [#/Vol] 6.42 10*3/uL Normal 1.45-7.50 [facility] Comment on above: Order Comment: Speci men Type: BLOOD SPECIMEN [facility] Address: [address] [place] [address] Performed By: #### 5 7021-8 #### JANENECHITRA [facility] CLIA [id number] [facility] [place] [address] [place] [facility] CLIA [id number] [address] [place] [address] [place] Neutrophils/100 WBC (Bld) 73.0 % Normal [facility] Comment on above: Order Comment: Speci men Type: BLOOD SPECIMEN [facility] Address: [address] [place] [address] Performed By: #### 5 7021-8 #### CHAYITOSHAZIA [facility] CLIA [id number] [address] [place] [address] [place] [facility] CLIA [id number] [address] [place] [address] [place] Nucleated RBC (Bld) [#/Vol] 10*3/uL Normal <0.01 [facility] Comment on above: Order Comment: Speci men Type: BLOOD SPECIMEN [facility] Address: [address] [place] [address] Performed By: #### 5 7021-8 #### [facility] CLIA [id number] [address] [place] [address] [place] [facility] CLIA [id number] [address] [place] [address] [place] Nucleated RBC/100 WBC (Bld) [Ratio] 0.0 /100 WBC Normal [facility] Comment on above: Order Comment: Speci men Type: BLOOD SPECIMEN [facility] Address: [address] [place] [address] Performed By: #### 5 7021-8 #### DEBBIE [facility] CLIA [id number] CLIA [id number] [address] [place] [address] OF [place]BA Ovalocytes LM Ql (Bld) Few Normal [facility] Comment on above: Order Comment: Speci men Type: BLOOD SPECIMEN [facility] Address: [address] [place] [address] Performed By: #### 5 7021-8 #### DEBBIE [facility] CLIA [id number] [facility] [place] [address] [place] [facility] CLIA [id number] [address] [place] [address] [place] Platelet mean volume (Bld) [Entitic vol] 10.5 fL Normal 9.0-12.7 [facility] Comment on above: Order Comment: Speci men Type: BLOOD SPECIMEN [facility] Address: [address] [place] [address] Performed By: #### 5 7021-8 #### DEBBIE [facility] CLIA [id number] [address] [place] [address] [place] [facility] CLIA [id number] [address] [place] [address] [place] Platelets (Bld) [#/Vol] 319 10*3/uL Normal 150-400 [facility] Comment on above: Order Comment: Speci men Type: BLOOD SPECIMEN [facility] Address: [address] [place] [address] Result Comment: No c lot detected. Performed By: #### 5 7021-8 #### DEBBIE [facility] CLIA [id number] [address] [place] [address] [place] [facility] CLIA [id number] [address] [place] [address] [place] Platelets Estimate (Bld) [#/Vol] Adequate Normal [facility] Comment on above: Order Comment: Speci men Type: BLOOD SPECIMEN [facility] Address: [address] [place] [address] Performed By: #### 5 7021-8 #### JANENECHITRA [facility] CLIA [id number] [address] [place] [address] [place] [facility] CLIA [id number] [address] [place] [address] [place] RBC (Bld) [#/Vol] 5.18 10*6/uL Normal 4.20-6.00 [facility] Comment on above: Order Comment: Speci men Type: BLOOD SPECIMEN [facility] Address: [address] [place] [address] Performed By: #### 5 7021-8 #### JANENECHITRA [facility] CLIA [id number] [address] [place] [address] [place] [facility] CLIA [id number] [address] [place] [address] [place] RBC FRAGMENTS Few Abnormal None Seen [facility] Comment on above: Order Comment: Speci men Type: BLOOD SPECIMEN [facility] Address: [address] [place] [address] Performed By: #### 5 7021-8 #### JANENECHITRA [facility] CLIA [id number] [address] [place] [address] [place] [facility] CLIA [id number] [address] [place] [address] [place] RED CELL MORPH Reviewed: see results of individual morphologies Normal [facility] Comment on above: Order Comment: Speci men Type: BLOOD SPECIMEN [facility] Address: [address] [place] [address] Performed By: #### 5 7021-8 #### JANENECHITRA [facility] CLIA [id number] [address] [place] [address] [place] [facility] CLIA [id number] [address] [place] [address] [place] WBC (Bld) [#/Vol] 8.80 10*3/uL Normal 3.70-11.00 [facility] Comment on above: Order Comment: Speci men Type: BLOOD SPECIMEN [facility] Address: [address] [place] [address] Performed By: #### 5 7021-8 #### DEBBIE [facility] CLIA [id number] [address] [place] [address] [place] [facility] CLIA [id number] [address] [place] [address] [place] Hepatic function 2000 panelo n 02-06-2024 Albumin [Mass/Vol] 4.5 g/dL Normal 3.9-4.9 [facility] Comment on above: Order Comment: Speci men Type: BLOOD SPECIMENOrdering Facility: [facility] Address: [address] [place] [address] Performed By: #### 2 4325-3 ####[facility] [id number] [place] [address] [place] ALP [Catalytic activity/Vol] 115 U/L High 38-113 [facility] Comment on above: Order Comment: Speci men Type: BLOOD SPECIMENOrdering Facility: [facility] Address: [address] [place] [address] Performed By: #### 2 4325-3 ####[facility]ITAL[facility]CLIA [id number] [place] [address] [place] ALT [Catalytic activity/Vol] 10 U/L Normal 10-54 [facility] Comment on above: Order Comment: Speci men Type: BLOOD SPECIMENOrdering Facility: [facility] Address: [address] [place], [place] [address] Performed By: #### 2 4325-3 ####[facility] [id number] [place] [address] [place] AST [Catalytic activity/Vol] 15 U/L Normal 14-40 [facility] Comment on above: Order Comment: Speci men Type: BLOOD SPECIMENOrdering Facility: [facility] Address: [address] [place], [place] [address] Performed By: #### 2 4325-3 ####[facility] [id number] [place] [address] [place] Bilirubin [Mass/Vol] 0.4 mg/dL Normal 0.2-1.3 [facility] Comment on above: Order Comment: Speci men Type: BLOOD SPECIMENOrdering Facility: [facility] Address: [address] [place] [address] Performed By: #### 2 4325-3 ####[facility] [id number] [place] [address] [place] Bilirubin.conjugated [Mass/Vol] mg/dL Normal <0.2 [facility] Comment on above: Order Comment: Speci men Type: BLOOD SPECIMENOrdering Facility: [facility] Address: [address] [place], [place] [address] Performed By: #### 2 4325-3 ####[facility] [id number] [place] [address] [place] Protein [Mass/Vol] 7.6 g/dL Normal 6.3-8.0 [facility] Comment on above: Order Comment: Speci men Type: BLOOD SPECIMENOrdering Facility: [facility] Address: [address] [place], [place] [address] Performed By: #### 2 4325-3 ####[facility] HANG RAMSEY [id number] [place] [id number] [facility] CNOVon 02-05-2024 CNOV [facility] JUANITA JAY ([id number]) 1955 M Date Time Provider Department 02/05/24 11:15 AM TELLO SLAUGHTER During your visit today, we recorded the following information about you: Pulse Blood pressure Weight Height 54/minute 111/57 80.7 kg 1.829 m Tello Slaughter PA-C 02/05/2024 3:50 PM [facility] FOR MULTIPLE SCLEROSIS FOLLOWUP/ESTABLISHED PATIENT VISIT Principal [...] - had open heart for double bypass (aHng and Taya) - was in rehab after and now outpatient cardiac rehab now with benefit - set to follow-up with cardiology in March - on anticoagulant now but not sure why? He doesn't remember blood clot Denies seizure activity Notes mood irritable/"grouchy" at times Declines need for further intervention SUBJECTIVE AND REVIEW OF SYSTEMS: Neuro-QoL Functions (higher=better functioning) Flowsheet [facility] Office Visit from 07/09/[address] [facility] Office Visit from 01/08/[address] [facility] Office Visit from 07/04/[address] [facility] Upper Extremity Domain T Score 48.65 46 49 Lower Extremity Domain T Score 34.28 37 37 Cognitive Function Domain T Score 47.66 49 46 Positive Affect Well Being T Score -- -- -- Ability To Participate In Social Roles T Score 41.16 42 50 Satisfaction With Social Roles T Score 62.19 45 44 Neuro-QoL Symptoms (higher=worse symptoms) Flowsheet [facility] Office Visit from 07/09/[address] [facility] Office Visit from 01/08/[address] [facility] Office Visit from 07/04/[address] [facility] Sleep Domain T Score 52.89 48 47 Fatigue Domain T Score 47.6 49 50 Anxiety Domain T Score 43.16 46 41 Depression Domain T Score 48.71 48 47 Stigma Domain T Score 58.45 45 37 Emotional Behavior Dyscontrol T Score -- -- -- *NeuroQoL is a multi-domain patient-reported quality of life questionnaire. PHQ-9 Flowsheet [facility] Office Visit from 07/04/2023 in Neurology Office Visit from 04/03/2022 in Neurology PHQ-9 Score 4 2 *PHQ-9 is a questionnaire for depressive symptoms, with scores 0-4 indicating none, 5-9 mild, 10-14 moderate, 15-19 moderately severe, and 20-27 severe symptoms. PROMIS-10 Flowsheet Row Office Visit from 07/04/2023 in Neurology Office Visit from 01/08/[address] [facility] Global Physical Health T Score 34.9 42.3 [...] SPLENECTOMY PAST SURGICAL HISTORY OF 1972 Splenectomy [facility] post trauma MEDICATIONS and ALLERGIES were [...] Flowsheet Row Office Visit from 07/09/2022 in [facility] Office Visit from 01/08/[address] [facility] Office Visit from 07/04/[address] [facility] Processing Speed Total Number Correct 34 31 33 Processing Speed Z score -0.16 -0.49 -0.31 Dominant hand -- -- -- MDT Left Hand Time 31.96 33.52 42.09 MDT Right Hand Time 32.59 30.53 31.37 Walking Speed Test (25 feet) 9.74 8.56 9.74 EXAM: General Appearance: well appearing, in no acute distress Mental status evaluation during (more content not included)... Normal [facility]JEANNIEMystery ScienceKYLIE) JUANITA JAY ([id number]) 1955 M Date Time Provider Department 01/14/24 LAVERNE MONROE During your visit today, we recorded the following information about you: Elisha Anand LPN 01/14/2024 4:03 PM Signed Received pt records from [facility]. Placed in provider's inbox for review. Route to MA scanning Allergies As of Date: 01/14/2024 Noted Allergy Reaction CARBAMAZEPINE 10/22/2011 2 - Rash 14 - Other: See Comments Comments: Acute urinary retention Date Reviewed: 07/04/2023 Reviewed by: Cherrie Springer MA - Fully Assessed Reason for Visit: Received Outside Medical Records [3576] Cmt: [facility] Prescriptions as of 01/14/2024 - [...] Status:Closed by ELISHA ANAND on 01/14/24 Normal [facility] CR - History AND Physicalon 01-09-2024 CR - History & Physical [facility] Cardiac Rehab [address] [place] [address] CR - History Physical MR#: [id number] Acct: [id number] Name: JUANITA JAY Rep #: [id number] : 1955 68 From: Aston Soria BS, [...] Negative Advanced Directives Advanced Directives Power of Equipment Service Technician: No Living Will: Yes Advance Directives Information Provided: Yes Advance Directives on File: No DNR Order?:: No Past Medical History Covid-19 Screening Physicial Symptoms Other Clinical Concerns Exposure Risk Pertinent Comorbidities 65 years or older:: Yes Has a serious heart condition:: Yes Past Medical Illness Past Medical History (Updated 01/02/24 @ 14:26 by Zeferino Lizarraga VENDING TECHNICIAN, VENDING TECHNICIAN-C) Postoperative atrial fibrillation I97.89, I48.91 Leptospirosis A27.9 Age 35 Atherosclerosis of coronary artery of [place] heart without angina pectoris I25.10 Seizures R56.9 [...] Obesity/Overweight Risk Guide (more content not included)... [facility] XR CHEST 2 VIEWSon 4 XR CHEST [...] Sign Date: 01/07/2024 12:21:05 AM Ordering Provider: [facility] MAIN Cardiology Visit Reporton Cardiology Visit Report [facility] [address] [place] [address] OFFICE VISIT Date of Service: 01/02/24 MR#: [id number] Acct: [id number] Name: JUANITA JAY Rep #: [id number] : 1955 Provider: RODNEY robertson Age/Sex: 68/M [place] [facility] Status: Signed [facility] History of Present Illness Details: This is [...] He proceeded with CABG x [address] [facility] [address] Henry with a WILLETT to [...] Intake Visit Reasons: S/P [facility] 11/25 (SCANNED) Insulation Cutter Required: No Accompanied by: Is patient in pain?: No Allergies No Known Allergies Allergy (Verified 01/02/24 13:34) Ejection fraction %: 70 Have you fallen in the past year?: Yes [facility] Medical History (Updated 01/02/24 @ 14:26 by Zeferino Lizarraga VENDING TECHNICIAN, VENDING TECHNICIAN-C) Postoperative atrial fibrillation Leptospirosis Atherosclerosis of coronary artery of [place] heart without angina pectoris Seizures Multiple sclerosis [...] eyelids normal (more content not included)... Normal [facility] 12-03-2023 Normal [facility] Comment on above: Result Comment: [id number] BN TRANSFUSED 12/04/23 1121 Performed By: #### B KATHI, [facility] ####[facility] [id number] [place], [address] CONFIRM BLOOD TYPEon 024 ABO and Rh group Nom (Bld) Blood group B Rh(D) negative [facility] Type AND Screenon 12-03-2023 Ab SCREEN GEL Negative Normal [facility] Comment on above: Order Comment: [id number] Performed By: #### B KATHI [facility] ####[facility] [id number] [place], [address] .Auto Diffon 12-01-2023 Basophil, Absolute 0.1 10 3/mcL Normal 0.0-0.3 [facility] ([place]) Comment on above: Performed By: #### B G #### [address] [address] Basophils/100 WBC (Bld) 0.6 % Normal 0.0-2.5 [facility] ([place]) Comment on above: Performed By: #### B G #### [address] [address] Eosinophil, Absolute 0.8 10 3/mcL High 0.0-0.7 [facility] ([place]) Comment on above: Performed By: #### B G #### [address] [address] Eosinophils/100 WBC (Bld) 5.8 % Normal 0.0-6.0 [facility] ([place]) Comment on above: Performed By: #### B G #### [address] [address] Lymphocyte, Absolute 1.1 10 3/mcL Normal 0.9-4.3 [facility] ([place]) Comment on above: Performed By: #### B G #### [address] [address] Lymphocytes/100 WBC (Bld) 8.1 % Low 20.0-40.0 [facility] ([place]) Comment on above: Performed By: #### B G #### [address] [address] Monocyte, Absolute 1.7 10 3/mcL High 0.1-1.4 [facility] ([place] Comment on above: Performed By: #### B G #### [address] [address] Monocytes/100 WBC (Bld) 12.4 % Normal 2.0-13.0 [facility] ([place]) Comment on above: Performed By: #### B G #### [address] [address] Neutrophils/100 WBC (Bld) 73.1 % Normal 50.0-75.0 [facility] ([place]) Comment on above: Performed By: #### B G #### [address] [address] .GFRon 12-01-2023 GFR >60 Normal [facility] ([place]) Comment on above: Result Comment: GFR Population [...] meters Performed By: #### B G #### [address] [address] GFR Non- >60 Normal [facility] ([place]) Comment on above: Result Comment: GFR Population [...] meters Performed By: #### B G #### [address] [address] .NEUABSon 12-01-2023 Neutrophil, Absolute 10.1 10 3/mcL High 2.3-8.1 [facility] ([place]) Comment on above: Performed By: #### B G #### [address] [address] BMPon 12-01-2023 BUN/Creatinine Ratio 24.2 ratio High 10.0-22.0 [facility] ([place]) Comment on above: Performed By: #### B G #### [place] [id number] Calcium [Mass/Vol] 8.2 mg/dL Low 8.7-10.4 [facility] ([place]) Comment on above: Performed By: #### B G #### [place] [id number] Chloride [Moles/Vol] 108 mmol/L Normal 98-110 [facility] ([place]) Comment on above: Performed By: #### B G #### [place] [id number] CO2 [Moles/Vol] 24 mmol/L Normal 22-32 [facility] ([place]) Comment on above: Performed By: #### B G #### [place] [address] Creatinine [Mass/Vol] 0.95 mg/dL Normal 0.60-1.40 [facility] ([place]) Comment on above: Performed By: #### B G #### [address] [address] Electrolyte Balance 5.0 mEq/L Normal 4.0-15.0 [facility] ([place]) Comment on above: Performed By: #### B G #### [place] [id number] Glucose [Mass/Vol] 105 mg/dL Normal 82-115 [facility] ([place]) Comment on above: Performed By: #### B G #### [place] [id number] Potassium [Moles/Vol] 3.9 mmol/L Normal 3.5-5.0 [facility] ([place]) Comment on above: Performed By: #### B G #### [place] [id number] Sodium [Moles/Vol] 137 mmol/L Normal 136-145 [facility] ([place] Comment on above: Performed By: #### B G #### [place] [id number] Urea nitrogen [Mass/Vol] 23.0 mg/dL High 8.0-22.0 [facility] ([place]) Comment on above: Performed By: #### B G #### [place] [id number] CBCon 12-01-2023 Erythrocyte distribution width (RBC) [Ratio] 18.3 % High 11.5-15.5 [facility] ([place]) Comment on above: Performed By: #### B G #### [place] [id number] Hematocrit (Bld) [Volume fraction] 23.6 % Low 40.0-52.0 [facility] ([place]) Comment on above: Performed By: #### B G #### [place] [id number] Hgb 7.6 G/dL Low 13.0-17.5 [facility] ([place]) Comment on above: Performed By: #### B G #### [place] [id number] MCH (RBC) [Entitic mass] 27.0 pg Normal 27.0-33.0 [facility] ([place]) Comment on above: Performed By: #### B G #### [place] [id number] MCHC 32.4 G/dL Normal 32.0-36.0 [facility] ([place]) Comment on above: Performed By: #### B G #### [place] [id number] MCV (RBC) [Entitic vol] 83.1 fL Normal 81.0-100.0 [facility] ([place]) Comment on above: Performed By: #### B G #### [facility] [address] [place] [address] Platelet 330 10 3/mcL Normal 150-450 [facility] ([place]) Comment on above: Performed By: #### B G #### [facility] [address] [place] [address] Platelet mean volume (Bld) [Entitic vol] 8.6 fL Normal 6.4-10.5 [facility] ([place]) Comment on above: Performed By: #### B G #### [address] [address] RBC 2.84 10 6/mcL Low 4.50-6.00 [facility] ([place]) Comment on above: Performed By: #### B G #### [address] [address] WBC 13.8 10 3/mcL High 4.5-10.8 [facility] ([place]) Comment on above: Performed By: #### B G #### [address] [address] Cardiac Cath [facility] Cardiac Cath Diagnostic [facility] Imaging Services [address] [place] [address] Cardiac Cath Diagnostic MR#: [id number] Acct: [id number] Name: JUANITA JAY SONIYA Rep #: [id number] : 1955 68 From: Shravan Bernal MD PCP: Dr. Wisam Monroe MD Status:DIS SHARONA Patient Name: JUANITA JAY Study Date: 11/24/2023 Performing: Shravan Bernal MD Ht: 72 inches 182.88 cm : 1955 Wt: 185 lbs 83.8 kg Age: 68 Gender: male BSA: 2.06 PROCEDURE(S) PERFORMED DC01-(97094)LHC/COR/ LV CLINICAL PROFILE AND INDICATIONS Indications: Suspected [...] multiple views using a 5 Fr. 4.0 [place] catheter. Right Coronary Artery selective angiography was then performed in multiple views using a 5 Fr. 4.0 [place] catheter. Left Ventriculography was performed in [place] [...] MD Date Dictated: 11/24/23827 Date Transcribed: 12/01/23816 Pattern Cutter: CO Signed Normal [facility] LABORATORYOrdered By: SYSTEM SYSTEM on 12-01-2023 [...] (S/P/Bld) [Vol rate/Area] ml/min/1.73sqm Invalid Interpretation Code [facility] Comment on above: Interpretive Data: GFR [...] (S/P/Bld) [Vol rate/Area] ml/min/1.73sqm Invalid Interpretation Code [facility] Comment on above: Interpretive Data: GFR [...] 105 mg/dL Normal 82 - 115 mg/dL [facility] Hematocrit (Bld) [Volume fraction] 23.6 % [...] 5:57:46 AM Ordering Provider: CAMERON De Guzman [facility] ([place]) .Auto Diffon 11-30-2023 Basophil, Absolute 0.1 10 3/mcL Normal 0.0-0.3 [facility] ([place]) Comment on above: Performed By: #### A JACQUELYN MESA #### [address] [address] Basophils/100 WBC (Bld) 0.5 % Normal 0.0-2.5 [facility] ([place]) Comment on above: Performed By: #### JACQUELYN PADILLA #### [address] [address] Eosinophil, Absolute 0.6 10 3/mcL Normal 0.0-0.7 [facility] ([place]) Comment on above: Performed By: #### JACQUELYN PADILLA #### [address] [address] Eosinophils/100 WBC (Bld) 3.4 % Normal 0.0-6.0 [facility] ([place]) Comment on above: Performed By: #### JACQUELYN PADILLA #### [address] [address] Lymphocyte, Absolute 1.8 10 3/mcL Normal 0.9-4.3 [facility] ([place]) Comment on above: Performed By: #### JACQUELYN PADILLA #### [address] [address] Lymphocytes/100 WBC (Bld) 9.9 % Low 20.0-40.0 [facility] ([place]) Comment on above: Performed By: #### A JACQUELYN MESA #### [address] [address] Monocyte, Absolute 2.1 10 3/mcL High 0.1-1.4 [facility] ([place]) Comment on above: Performed By: #### A JACQUELYN MESA #### [address] [address] Monocytes/100 WBC (Bld) 11.7 % Normal 2.0-13.0 [facility] ([place]) Comment on above: Performed By: #### A JACQUELYN MESA #### [address] [address] Neutrophils/100 WBC (Bld) 74.5 % Normal 50.0-75.0 [facility] ([place]) Comment on above: Performed By: #### A JACQUELYN MESA #### [address] [address] .GFRon 11-30-2023 GFR >60 Normal [facility] ([place]) Comment on above: Result Comment: GFR Population [...] meters Performed By: #### R BCP #### [address] [address] GFR Non- >60 Normal [facility] ([place]) Comment on above: Result Comment: GFR Population [...] meters Performed By: #### R BCP #### [address] [address] .NEUABSon 11-30-2023 Neutrophil, Absolute 13.3 10 3/mcL High 2.3-8.1 [facility] ([place]) Comment on above: Performed By: #### A JACQUELYN MESA #### [place] [address] CBCon 11-30-2023 Erythrocyte distribution width (RBC) [Ratio] 18.1 % High 11.5-15.5 [facility] ([place]) Comment on above: Performed By: #### JACQUELYN PADILLA #### [place] [address] Hematocrit (Bld) [Volume fraction] 26.2 % Low 40.0-52.0 [facility] ([place]) Comment on above: Performed By: #### JACQUELYN PADILLA #### [place] [address] Hgb 8.4 G/dL Low 13.0-17.5 [facility] ([place]) Comment on above: Performed By: #### JACQUELYN PADILLA #### [place] [address] MCH (RBC) [Entitic mass] 26.5 pg Low 27.0-33.0 [facility] ([place]) Comment on above: Performed By: #### JACQUELYN PADILLA #### [place] [address] MCHC 32.2 G/dL Normal 32.0-36.0 [facility] ([place]) Comment on above: Performed By: #### JACQUELYN PADILLA #### [address] [address] MCV (RBC) [Entitic vol] 82.3 fL Normal 81.0-100.0 [facility] ([place]) Comment on above: Performed By: #### JACQUELYN PADILLA #### [address] [address] Platelet 333 10 3/mcL Normal 150-450 [facility] ([place]) Comment on above: Performed By: #### A JACQUELYN MESA #### [address] [address] Platelet mean volume (Bld) [Entitic vol] 9.2 fL Normal 6.4-10.5 [facility] ([place]) Comment on above: Performed By: #### JACQUELYN PADILLA #### [address] [address] RBC 3.19 10 6/mcL Low 4.50-6.00 [facility] ([place]) Comment on above: Performed By: #### JACQUELYN PADILLA #### [address] [address] WBC 17.8 10 3/mcL High 4.5-10.8 [facility] ([place]) Comment on above: Performed By: #### JACQUELYN PADILLA #### [address] [address] CMPon 11-30-2023 Albumin Level 3.2 G/dL Normal 3.2-4.8 [facility] ([place]) Comment on above: Performed By: #### JACQUELYN PADILLA #### [address] [address] Albumin/Globulin [Mass ratio] 1.0 {ratio} Normal 0.9-1.6 [facility] ([place] Comment on above: Performed By: #### JACQUELYN PADILLA #### [address] [address] ALP [Catalytic activity/Vol] 83 U/L Normal 38-126 [facility] ([place]) Comment on above: Performed By: #### A JACQUELYN MESA #### [address] [address] ALT/SGPT <8 Low 12-55 [facility] ([place]) Comment on above: Performed By: #### JACQUELYN PADILLA #### [address] [address] AST [Catalytic activity/Vol] 23 U/L Normal 8-34 [facility] ([place]) Comment on above: Performed By: #### A JACQUELYN MESA #### [address] [address] Bili Total 0.60 mg/dL Normal 0.20-1.20 [facility] ([place]) Comment on above: Result Comment: Use of this assay is not recommended for patients undergoing treatment with eltrombopag due to the potential for falsely elevated results. Performed By: #### JACQUELYN PADILLA #### [address] [address] BUN/Creatinine Ratio 27.0 ratio High 10.0-22.0 [facility] ([place]) Comment on above: Performed By: #### JACQUELYN PADILLA #### [address] [address] Calcium [Mass/Vol] 8.6 mg/dL Low 8.7-10.4 [facility] ([place]) Comment on above: Performed By: #### JACQUELYN PADILLA #### [address] [address] Chloride [Moles/Vol] 106 mmol/L Normal 98-110 [facility] ([place]) Comment on above: Performed By: #### JACQUELYN PADILLA #### [address] [address] CO2 [Moles/Vol] 22 mmol/L Normal 22-32 [facility] ([place]) Comment on above: Performed By: #### JACQUELYN PADILLA #### [address] [address] Creatinine [Mass/Vol] 0.89 mg/dL Normal 0.60-1.40 [facility] ([place]) Comment on above: Performed By: #### JACQUELYN PADILLA #### [address] [address] Electrolyte Balance 8.0 mEq/L Normal 4.0-15.0 [facility] ([place]) Comment on above: Performed By: #### JACQUELYN PADILLA #### [address] [address] Globulin 3.3 G/dL Normal 1.5-3.8 [facility] ([place]) Comment on above: Performed By: #### JACQUELYN PADILLA #### [address] [address] Glucose [Mass/Vol] 127 mg/dL High 82-115 [facility] ([place] Comment on above: Performed By: #### JACQUELYN PADILLA #### [address] [address] Potassium [Moles/Vol] 4.1 mmol/L Normal 3.5-5.0 [facility] ([place]) Comment on above: Performed By: #### JACQUELYN PADILLA #### [address] [address] Sodium [Moles/Vol] 136 mmol/L Normal 136-145 [facility] ([place] Comment on above: Performed By: #### JACQUELYN PADILLA #### [address] [address] Total Protein 6.5 G/dL Normal 5.7-8.2 [facility] ([place]) Comment on above: Result Comment: No te - New Reference Range in effect 19 Performed By: #### JACQUELYN PADILLA #### [address] [address] Urea nitrogen [Mass/Vol] 24.0 mg/dL High 8.0-22.0 [facility] ([place]) Comment on above: Performed By: #### JACQUELYN PADILLA #### [address] [address] LABORATORYOrdered By: SYSTEM SYSTEM on 11-30-2023 Albumin [...] 6:28:22 AM Ordering Provider: CAMERON De Guzman [facility] ([place]) .Auto Diffon 11-29-2023 Basophil, Absolute 0.1 10 3/mcL Normal 0.0-0.3 [facility] ([place]) Comment on above: Performed By: #### C BC, ADIFF, GFR, BMP, ANEU ####[address] [address] Basophils/100 WBC (Bld) 0.6 % Normal 0.0-2.5 [facility] ([place]) Comment on above: Performed By: #### C BC, ADIFF, GFR, BMP, ANEU ####[address] [address] Eosinophil, Absolute 0.4 10 3/mcL Normal 0.0-0.7 [facility] ([place]) Comment on above: Performed By: #### C BC, ADIFF, GFR, BMP, ANEU ####[address] [address] Eosinophils/100 WBC (Bld) 2.4 % Normal 0.0-6.0 [facility] ([place]) Comment on above: Performed By: #### C BC, ADIFF, GFR, BMP, ANEU ####[address] [address] Lymphocyte, Absolute 1.5 10 3/mcL Normal 0.9-4.3 [facility] ([place]) Comment on above: Performed By: #### C BC, ADIFF, GFR, BMP, ANEU ####[address] [address] Lymphocytes/100 WBC (Bld) 9.3 % Low 20.0-40.0 [facility] ([place]) Comment on above: Performed By: #### C BC, ADIFF, GFR, BMP, ANEU ####[address] [address] Monocyte, Absolute 2.0 10 3/mcL High 0.1-1.4 [facility] ([place]) Comment on above: Performed By: #### C BC, ADIFF, GFR, BMP, ANEU ####[address] [address] Monocytes/100 WBC (Bld) 11.8 % Normal 2.0-13.0 [facility] ([place]) Comment on above: Performed By: #### C BC, ADIFF, GFR, BMP, ANEU ####[address] [address] Neutrophils/100 WBC (Bld) 75.9 % High 50.0-75.0 [facility] ([place]) Comment on above: Performed By: #### C BC, ADIFF, GFR, BMP, ANEU ####[address] [address] .GFRon 11-29-2023 GFR >60 Normal [facility] ([place]) Comment on above: Result Comment: GFR Population [...] meters Performed By: #### B G #### [address] [address] GFR Non- >60 Normal [facility] ([place]) Comment on above: Result Comment: GFR Population [...] meters Performed By: #### B G #### [address] [address] .NEUABSon 11-29-2023 Neutrophil, Absolute 12.7 10 3/mcL High 2.3-8.1 [facility] ([place]) Comment on above: Performed By: #### C BC, ADIFF, GFR, BMP, ANEU ####[address] [address] BMPon 11-29-2023 BUN/Creatinine Ratio 26.4 ratio High 10.0-22.0 [facility] ([place]) Comment on above: Performed By: #### B G #### [address] [address] Calcium [Mass/Vol] 9.1 mg/dL Normal 8.7-10.4 [facility] ([place]) Comment on above: Performed By: #### B G #### [address] [address] Chloride [Moles/Vol] 107 mmol/L Normal 98-110 [facility] ([place]) Comment on above: Performed By: #### B G #### [address] [address] CO2 [Moles/Vol] 22 mmol/L Normal 22-32 [facility] ([place]) Comment on above: Performed By: #### B G #### [address] [address] Creatinine [Mass/Vol] 0.87 mg/dL Normal 0.60-1.40 [facility] ([place]) Comment on above: Performed By: #### B G #### [address] [address] Electrolyte Balance 8.0 mEq/L Normal 4.0-15.0 [facility] ([place]) Comment on above: Performed By: #### B G #### [address] [address] Glucose [Mass/Vol] 99 mg/dL Normal 82-115 [facility] ([place] Comment on above: Performed By: #### B G #### [address] [address] Potassium [Moles/Vol] 3.9 mmol/L Normal 3.5-5.0 [facility] ([place]) Comment on above: Performed By: #### B G #### [address] [address] Sodium [Moles/Vol] 137 mmol/L Normal 136-145 [facility] ([place] Comment on above: Performed By: #### B G #### [address] [address] Urea nitrogen [Mass/Vol] 23.0 mg/dL High 8.0-22.0 [facility] ([place]) Comment on above: Performed By: #### B G #### [address] [address] CBCon 11-29-2023 Erythrocyte distribution width (RBC) [Ratio] 17.9 % High 11.5-15.5 [facility] ([place]) Comment on above: Performed By: #### C BC, ADIFF, GFR, BMP, ANEU ####[address] [address] Hematocrit (Bld) [Volume fraction] 24.4 % Low 40.0-52.0 [facility] ([place]) Comment on above: Performed By: #### C BC, ADIFF, GFR, BMP, ANEU ####[address] [address] Hgb 8.1 G/dL Low 13.0-17.5 [facility] ([place]) Comment on above: Performed By: #### C BC, ADIFF, GFR, BMP, ANEU ####[place] [address] MCH (RBC) [Entitic mass] 27.2 pg Normal 27.0-33.0 [facility] ([place]) Comment on above: Performed By: #### C BC, ADIFF, GFR, BMP, ANEU ####[place] [address] MCHC 33.2 G/dL Normal 32.0-36.0 [facility] ([place]) Comment on above: Performed By: #### C BC, ADIFF, GFR, BMP, ANEU ####[place] [address] MCV (RBC) [Entitic vol] 81.8 fL Normal 81.0-100.0 [facility] ([place]) Comment on above: Performed By: #### C BC, ADIFF, GFR, BMP, ANEU ####[place] [address] Platelet 267 10 3/mcL Normal 150-450 [facility] ([place]) Comment on above: Performed By: #### C BC, ADIFF, GFR, BMP, ANEU ####[place] [address] Platelet mean volume (Bld) [Entitic vol] 8.7 fL Normal 6.4-10.5 [facility] ([place]) Comment on above: Performed By: #### C BC, ADIFF, GFR, BMP, ANEU ####[place] [address] RBC 2.98 10 6/mcL Low 4.50-6.00 [facility] ([place]) Comment on above: Performed By: #### C BC, ADIFF, GFR, BMP, ANEU ####[place] [address] WBC 16.7 10 3/mcL High 4.5-10.8 [facility] ([place]) Comment on above: Performed By: #### C BC, ADIFF, GFR, BMP, ANEU ####[facility] [place] [address] Pancho 11-29-2023 Potassium [Moles/Vol] 3.6 mmol/L Normal 3.5-5.0 [facility] ([place]) Comment on above: Performed By: #### K #### [facility] [address] [place] [address] LABORATORYOrdered By: SYSTEM SYSTEM on 11-29-2023 Potassium [...] 7:36:23 AM Ordering Provider: CAMERON De Guzman [facility] ([place]) .Auto Diffon 11-28-2023 Basophil, Absolute 0.0 10 3/mcL Normal 0.0-0.3 [facility] ([place]) Comment on above: Performed By: #### P LTP #### [address] [address] Basophils/100 WBC (Bld) 0.3 % Normal 0.0-2.5 [facility] ([place]) Comment on above: Performed By: #### P LTP #### [address] [address] Eosinophil, Absolute 0.1 10 3/mcL Normal 0.0-0.7 [facility] ([place]) Comment on above: Performed By: #### P LTP #### [address] [address] Eosinophils/100 WBC (Bld) 0.4 % Normal 0.0-6.0 [facility] ([place]) Comment on above: Performed By: #### P LTP #### [address] [address] Lymphocyte, Absolute 1.2 10 3/mcL Normal 0.9-4.3 [facility] ([place]) Comment on above: Performed By: #### P LTP #### [address] [address] Lymphocytes/100 WBC (Bld) 8.1 % Low 20.0-40.0 [facility] ([place]) Comment on above: Performed By: #### P LTP #### [address] [address] Monocyte, Absolute 2.0 10 3/mcL High 0.1-1.4 [facility] ([place]) Comment on above: Performed By: #### P LTP #### [address] [address] Monocytes/100 WBC (Bld) 13.6 % High 2.0-13.0 [facility] ([place]) Comment on above: Performed By: #### P LTP #### [address] [address] Neutrophils/100 WBC (Bld) 77.6 % High 50.0-75.0 [facility] ([place]) Comment on above: Performed By: #### P LTP #### [address] [address] .GFRon 11-28-2023 GFR Non- >60 Normal [facility] ([place]) Comment on above: Result Comment: GFR Population [...] meters Performed By: #### P LTP #### [address] [address] GFR >60 Normal [facility] ([place]) Comment on above: Result Comment: GFR Population [...] meters Performed By: #### P LTP #### [address] [address] .Morphon 11-28-2023 Platelet Estimate Normal Normal [facility] ([place]) Comment on above: Performed By: #### P LTP #### [address] [address] RBC morphology finding Nom (Bld) Normal Normal [facility] ([place]) Comment on above: Performed By: #### P LTP #### [address] [address] .NEUABSon 11-28-2023 Neutrophil, Absolute 11.3 10 3/mcL High 2.3-8.1 [facility] ([place]) Comment on above: Performed By: #### P LTP #### [address] [address] BMPon 11-28-2023 BUN/Creatinine Ratio 24.3 ratio High 10.0-22.0 [facility] ([place]) Comment on above: Performed By: #### P LTP #### [place] [address] Calcium [Mass/Vol] 8.3 mg/dL Low 8.7-10.4 [facility] ([place]) Comment on above: Performed By: #### P LTP #### [place] [address] Chloride [Moles/Vol] 107 mmol/L Normal 98-110 [facility] ([place]) Comment on above: Performed By: #### P LTP #### [place] [address] CO2 [Moles/Vol] 23 mmol/L Normal 22-32 [facility] ([place]) Comment on above: Performed By: #### P LTP #### [place] [address] Creatinine [Mass/Vol] 1.07 mg/dL Normal 0.60-1.40 [facility] ([place]) Comment on above: Performed By: #### P LTP #### [place] [address] Electrolyte Balance 5.0 mEq/L Normal 4.0-15.0 [facility] ([place]) Comment on above: Performed By: #### P LTP #### [place] [address] Glucose [Mass/Vol] 112 mg/dL Normal 82-115 [facility] ([place] Comment on above: Performed By: #### P LTP #### [place] [id number] Potassium [Moles/Vol] 3.6 mmol/L Normal 3.5-5.0 [facility] ([place] Comment on above: Performed By: #### P LTP #### [place] [id number] Sodium [Moles/Vol] 135 mmol/L Low 136-145 [facility] ([place] Comment on above: Performed By: #### P LTP #### [place] [address] Urea nitrogen [Mass/Vol] 26.0 mg/dL High 8.0-22.0 [facility] ([place]) Comment on above: Performed By: #### P LTP #### [place] [address] CBCon 11-28-2023 Erythrocyte distribution width (RBC) [Ratio] 18.0 % High 11.5-15.5 [facility] ([place]) Comment on above: Performed By: #### P LTP #### [place] [id number] Hematocrit (Bld) [Volume fraction] 21.0 % Low 40.0-52.0 [facility] ([place]) Comment on above: Performed By: #### P LTP #### [place] [address] Hgb 6.8 G/dL Critically abnormal 13.0-17.5 [facility] ([place]) Comment on above: Performed By: #### P LTP #### [place] [id number] MCH (RBC) [Entitic mass] 26.5 pg Low 27.0-33.0 [facility] ([place]) Comment on above: Performed By: #### P LTP #### [place] [address] MCHC 32.4 G/dL Normal 32.0-36.0 [facility] ([place]) Comment on above: Performed By: #### P LTP #### [place] [address] MCV (RBC) [Entitic vol] 81.6 fL Normal 81.0-100.0 [facility] ([place]) Comment on above: Performed By: #### P LTP #### [place] [address] Platelet 265 10 3/mcL Normal 150-450 [facility] ([place]) Comment on above: Performed By: #### P LTP #### [place] [address] Platelet mean volume (Bld) [Entitic vol] 8.3 fL Normal 6.4-10.5 [facility] ([place]) Comment on above: Performed By: #### P LTP #### [place] [address] RBC 2.57 10 6/mcL Low 4.50-6.00 [facility] ([place]) Comment on above: Performed By: #### P LTP #### [place] [address] WBC 14.5 10 3/mcL High 4.5-10.8 [facility] ([place]) Comment on above: Performed By: #### P LTP #### [place] [address] HHon 11-28-2023 Hematocrit (Bld) [Volume fraction] 24.6 % Low 40.0-52.0 [facility] ([place]) Comment on above: Performed By: #### B G #### [place] [address] Hgb 8.2 G/dL Low 13.0-17.5 [facility] ([place]) Comment on above: Performed By: #### B G #### [place] [address] Pancho 11-28-2023 Potassium [Moles/Vol] 4.2 mmol/L Normal 3.5-5.0 [facility] ([place]) Comment on above: Performed By: #### B G #### [address] [address] LABORATORYOrdered By: Coretta Cramer on 11-28-2023 RBC [...] Product Ready RBC Ready for Pickup Normal [facility] ([place]) Comment on above: Performed By: #### B G #### [place] [id number] XR CHEST 1 VIEWon 11-28-2023 XR CHEST [...] 6:37:24 AM Ordering Provider: YU De Guzman [facility] ([place]) .Auto Diffon 11-27-2023 Basophil, Absolute 0.0 10 3/mcL Normal 0.0-0.3 [facility] ([place]) Comment on above: Performed By: #### R BCP #### [address] [address] Basophils/100 WBC (Bld) 0.2 % Normal 0.0-2.5 [facility] ([place]) Comment on above: Performed By: #### R BCP #### [address] [address] Eosinophil, Absolute 0.0 10 3/mcL Normal 0.0-0.7 [facility] ([place]) Comment on above: Performed By: #### R BCP #### [address] [address] Eosinophils/100 WBC (Bld) 0.0 % Normal 0.0-6.0 [facility] ([place]) Comment on above: Performed By: #### R BCP #### [address] [address] Lymphocyte, Absolute 1.3 10 3/mcL Normal 0.9-4.3 [facility] ([place]) Comment on above: Performed By: #### R BCP #### [address] [address] Lymphocytes/100 WBC (Bld) 7.8 % Low 20.0-40.0 [facility] ([place]) Comment on above: Performed By: #### R BCP #### [address] [address] Monocyte, Absolute 1.7 10 3/mcL High 0.1-1.4 [facility] ([place]) Comment on above: Performed By: #### R BCP #### [address] [address] Monocytes/100 WBC (Bld) 10.4 % Normal 2.0-13.0 [facility] ([place]) Comment on above: Performed By: #### R BCP #### [address] [address] Neutrophils/100 WBC (Bld) 81.6 % High 50.0-75.0 [facility] ([place]) Comment on above: Performed By: #### R BCP #### [address] [address] .GFRon 11-27-2023 GFR >60 Normal [facility] ([place]) Comment on above: Result Comment: GFR Population [...] meters Performed By: #### P LTP #### [place] [address] GFR Non- >60 Normal [facility] ([place]) Comment on above: Result Comment: GFR Population [...] meters Performed By: #### P LTP #### [place] [address] .NEUABSon 11-27-2023 Neutrophil, Absolute 13.2 10 3/mcL High 2.3-8.1 [facility] ([place]) Comment on above: Performed By: #### R BCP #### [place] [address] BGon 11-27-2023 Base excess Calc (Bld) [Moles/Vol] -3.0000 mmol/L Normal [facility] ([place]) Comment on above: Performed By: #### B G #### [place] [id number] CO2 [Moles/Vol] 22.3 mmol/L Normal 22.0-30.0 [facility] ([place]) Comment on above: Performed By: #### B G #### [place] [id number] HCO3 (Bld) [Moles/Vol] 21.2 mmol/L Normal 21.0-29.0 [facility] ([place]) Comment on above: Performed By: #### B G #### [place] [id number] Oxygen (Bld) [Partial pressure] 146.9 mm[Hg] High 74.0-108.0 [facility] ([place]) Comment on above: Performed By: #### B G #### [place] [address] Oxygen saturation in Blood 99.5 % High 92.0-96.0 [facility] ([place]) Comment on above: Performed By: #### B G #### [place] [id number] pCO2 34.4 mmHg Normal 32.0-46.0 [facility] ([place]) Comment on above: Performed By: #### B G #### [place] [address] pH (Bld) 7.408 [pH] Normal 7.380-7.460 [facility] ([place]) Comment on above: Performed By: #### B G #### [place] [address] CBCon 11-27-2023 Erythrocyte distribution width (RBC) [Ratio] 17.4 % High 11.5-15.5 [facility] ([place]) Comment on above: Performed By: #### R BCP #### [place] [address] Hematocrit (Bld) [Volume fraction] 25.7 % Low 40.0-52.0 [facility] ([place]) Comment on above: Performed By: #### R BCP #### [place] [address] Hgb 8.3 G/dL Low 13.0-17.5 [facility] ([place]) Comment on above: Performed By: #### R BCP #### [place] [address] MCH (RBC) [Entitic mass] 26.5 pg Low 27.0-33.0 [facility] ([place]) Comment on above: Performed By: #### R BCP #### [place] [address] MCHC 32.2 G/dL Normal 32.0-36.0 [facility] ([place]) Comment on above: Performed By: #### R BCP #### [place] [address] MCV (RBC) [Entitic vol] 82.3 fL Normal 81.0-100.0 [facility] ([place]) Comment on above: Performed By: #### R BCP #### [place] [address] Platelet 320 10 3/mcL Normal 150-450 [facility] ([place]) Comment on above: Performed By: #### R BCP #### [place] [address] Platelet mean volume (Bld) [Entitic vol] 8.0 fL Normal 6.4-10.5 [facility] ([place]) Comment on above: Performed By: #### R BCP #### [place] [address] RBC 3.13 10 6/mcL Low 4.50-6.00 [facility] ([place]) Comment on above: Performed By: #### R BCP #### [place] [address] WBC 16.2 10 3/mcL High 4.5-10.8 [facility] ([place]) Comment on above: Performed By: #### R BCP #### [place] [address] CMPon 11-27-2023 Albumin Level 3.6 G/dL Normal 3.2-4.8 [facility] ([place]) Comment on above: Performed By: #### R BCP #### [place] [id number] Albumin/Globulin [Mass ratio] 1.5 {ratio} Normal 0.9-1.6 [facility] ([place]) Comment on above: Performed By: #### R BCP #### [place] [id number] ALP [Catalytic activity/Vol] 68 U/L Normal 38-126 [facility] ([place]) Comment on above: Performed By: #### R BCP #### [place] [id number] ALT [Catalytic activity/Vol] 14 U/L Normal 12-55 [facility] ([place]) Comment on above: Performed By: #### R BCP #### [place] [id number] AST [Catalytic activity/Vol] 53 U/L High 8-34 [facility] ([place]) Comment on above: Performed By: #### R BCP #### [place] [phone] Bili Total 0.50 mg/dL Normal 0.20-1.20 [facility] ([place]) Comment on above: Result Comment: Use of this assay is not recommended for patients undergoing treatment with eltrombopag due to the potential for falsely elevated results. Performed By: #### R BCP #### [place] [id number] BUN/Creatinine Ratio 25.6 ratio High 10.0-22.0 [facility] ([place]) Comment on above: Performed By: #### R BCP #### [address] [address] Calcium [Mass/Vol] 8.5 mg/dL Low 8.7-10.4 [facility] ([place] Comment on above: Performed By: #### R BCP #### [place] [id number] Chloride [Moles/Vol] 108 mmol/L Normal 98-110 [facility] ([place]) Comment on above: Performed By: #### R BCP #### [address] [address] CO2 [Moles/Vol] 21 mmol/L Low 22-32 [facility] ([place]) Comment on above: Performed By: #### R BCP #### [address] [address] Creatinine [Mass/Vol] 0.90 mg/dL Normal 0.60-1.40 [facility] ([place]) Comment on above: Performed By: #### R BCP #### [address] [address] Electrolyte Balance 12.0 mEq/L Normal 4.0-15.0 [facility] ([place]) Comment on above: Performed By: #### R BCP #### [place] [id number] Globulin 2.4 G/dL Normal 1.5-3.8 [facility] ([place]) Comment on above: Performed By: #### R BCP #### [address] [address] Glucose [Mass/Vol] 130 mg/dL High 82-115 [facility] ([place] Comment on above: Performed By: #### R BCP #### [address] [address] Potassium [Moles/Vol] 3.7 mmol/L Normal 3.5-5.0 [facility] ([place]) Comment on above: Performed By: #### R BCP #### [place] [id number] Sodium [Moles/Vol] 141 mmol/L Normal 136-145 [facility] ([place] Comment on above: Performed By: #### R BCP #### [place] [id number] Total Protein 6.0 G/dL Normal 5.7-8.2 [facility] ([place]) Comment on above: Result Comment: No te - New Reference Range in effect 19 Performed By: #### R BCP #### [address] [address] Urea nitrogen [Mass/Vol] 23.0 mg/dL High 8.0-22.0 [facility] ([place]) Comment on above: Performed By: #### R BCP #### [address] [address] Pancho 11-27-2023 Potassium [Moles/Vol] 3.8 mmol/L Normal 3.5-5.0 [facility] ([place]) Comment on above: Performed By: #### P LTP #### [place] [address] LABORATORYOrdered By: SYSTEM SYSTEM on 11-27-2023 Magnesium [...] 122 mg/dL High 82 - 115 mg/dL [facility] LABORATORYOrdered By: Ray oJrdan on 11-27-2023 Glucose [Mass/Vol] 126 mg/dL High 82 - 115 mg/dL [facility] MGon 11-27-2023 Magnesium [Mass/Vol] 2.1 mg/dL Normal 1.6-2.4 [facility] ([place]) Comment on above: Performed By: #### P LTP #### [place] [address] XR CHEST 1 VIEWon 11-27-2023 XR CHEST [...] 7:26:27 AM Ordering Provider: JORDAN HENRY Normal [facility] ([place]) .GFRon 11-26-2023 GFR >60 Normal [facility] ([place]) Comment on above: Result Comment: GFR Population [...] meters Performed By: #### B G #### [address] [address] GFR Non- >60 Normal [facility] ([place]) Comment on above: Result Comment: GFR Population [...] meters Performed By: #### B G #### [address] [address] .Manual Diffon 11-26-2023 Bands 1.0 % Normal 0.0-5.0 [facility] ([place]) Comment on above: Performed By: #### B G #### [address] [address] Basophil %, Manual 0.0 % Normal 0.0-2.5 [facility] ([place] Comment on above: Performed By: #### B G #### [address] [address] Basophil, Abs Manual 0.0 10 3/mcL Normal 0.0-0.3 [facility] ([place]) Comment on above: Performed By: #### B G #### [address] [address] Eosinophil %, Manual 1.0 % Normal 0.0-6.0 [facility] ([place]) Comment on above: Performed By: #### B G #### [address] [address] Eosinophil, Abs Manual 0.3 10 3/mcL Normal 0.0-0.7 [facility] ([place]) Comment on above: Performed By: #### B G #### [address] [address] Lymphocyte %, Manual 6.0 % Low 20.0-40.0 [facility] ([place] Comment on above: Performed By: #### B G #### [address] [address] Lymphocyte, Abs Manual 1.9 10 3/mcL Normal 0.9-4.3 [facility] ([place]) Comment on above: Performed By: #### B G #### [address] [address] Monocyte %, Manual 5.0 % Normal 2.0-13.0 [facility] ([place] Comment on above: Performed By: #### B G #### [address] [address] Monocyte, Abs Manual 1.6 10 3/mcL High 0.1-1.4 [facility] ([place]) Comment on above: Performed By: #### B G #### [address] [address] Neutrophil %, Manual 87.0 % High 50.0-75.0 [facility] ([place] Comment on above: Performed By: #### B G #### [place] [id number] Neutrophil, Abs Manual 27.9 10 3/mcL High 2.3-8.1 [facility] ([place]) Comment on above: Performed By: #### B G #### [place] [id number] Nucleated RBC 0.0 /100 WBC Normal [facility] ([place]) Comment on above: Performed By: #### B G #### [place] [address] .Morphon 11-26-2023 Acanthocytes 1+ Normal [facility] ([place]) Comment on above: Performed By: #### B G #### [place] [address] Anisocytosis Ql (Bld) 1+ Normal [facility] ([place]) Comment on above: Performed By: #### B G #### [place] [id number] Hypochrom 1+ Normal [facility] ([place]) Comment on above: Performed By: #### B G #### [place] [id number] Platelet Estimate Normal Normal [facility] ([place]) Comment on above: Performed By: #### B G #### [place] [address] APTTon 11-26-2023 aPTT Coag (Bld) [Time] 27.3 s Normal 25.0-35.0 [facility] ([place]) Comment on above: Result Comment: For Heparin anticoagulation therapy, the recommended therapeutic range is: 54-77 seconds (APTT Correlation with Anti-Xa therapeutic range of 0.3-0.7 units/ml). PLEASE REFERENCE THE PHARMACY PROTOCOL FOR DOSING. Performed By: #### K #### [place] [address] BGon 11-26-2023 Base excess Calc (Bld) [Moles/Vol] -5.4000 mmol/L Normal [facility] ([place]) Comment on above: Performed By: #### A JACQUELYN MESA #### [address] [address] CO2 [Moles/Vol] 21.0 mmol/L Low 22.0-30.0 [facility] ([place]) Comment on above: Performed By: #### JACQUELYN PADILLA #### [address] [address] HCO3 (Bld) [Moles/Vol] 19.8 mmol/L Low 21.0-29.0 A [facility] ([place]) Comment on above: Performed By: #### A JACQUELYN MESA #### [address] [address] Oxygen (Bld) [Partial pressure] 107.0 mm[Hg] Normal 74.0-108.0 [facility] ([place]) Comment on above: Performed By: #### A JACQUELYN MESA #### [address] [address] Oxygen saturation in Blood 98.1 % High 92.0-96.0 [facility] ([place]) Comment on above: Performed By: #### A JACQUELYN MESA #### [address] [address] pCO2 37.3 mmHg Normal 32.0-46.0 [facility] ([place]) Comment on above: Performed By: #### JACQUELYN PADILLA #### [address] [address] pH (Bld) 7.343 [pH] Low 7.380-7.460 [facility] ([place]) Comment on above: Performed By: #### JACQUELYN PADILLA #### [address] [address] Base excess Calc (Bld) [Moles/Vol] -6.7000 mmol/L Normal [facility] ([place]) Comment on above: Performed By: #### JACQUELYN PADILLA #### [address] [address] CO2 [Moles/Vol] 20.3 mmol/L Low 22.0-30.0 [facility] ([place]) Comment on above: Performed By: #### A JACQUELYN MESA #### [address] [address] HCO3 (Bld) [Moles/Vol] 19.1 mmol/L Low 21.0-29.0 A [facility] ([place]) Comment on above: Performed By: #### A JACQUELYN MEAS #### [address] [address] Oxygen (Bld) [Partial pressure] 121.3 mm[Hg] High 74.0-108.0 [facility] ([place]) Comment on above: Performed By: #### JACQUELYN PADILLA #### [address] [address] Oxygen saturation in Blood 98.7 % High 92.0-96.0 [facility] ([place]) Comment on above: Performed By: #### JACQUELYN PADILLA #### [address] [address] pCO2 39.3 mmHg Normal 32.0-46.0 [facility] ([place]) Comment on above: Performed By: #### JACQUELYN PADILLA #### [address] [address] pH (Bld) 7.305 [pH] Low 7.380-7.460 [facility] ([place]) Comment on above: Performed By: #### JACQUELYN PADILLA #### [address] [address] Base excess Calc (Bld) [Moles/Vol] -7.0000 mmol/L Normal [facility] ([place]) Comment on above: Performed By: #### B G #### [address] [address] CO2 [Moles/Vol] 19.8 mmol/L Low 22.0-30.0 [facility] ([place]) Comment on above: Performed By: #### B G #### [address] [address] HCO3 (Bld) [Moles/Vol] 18.6 mmol/L Low 21.0-29.0 A [facility] ([place]) Comment on above: Performed By: #### B G #### [address] [address] Oxygen (Bld) [Partial pressure] 153.2 mm[Hg] High 74.0-108.0 [facility] ([place]) Comment on above: Performed By: #### B G #### [address] [address] Oxygen saturation in Blood 99.6 % High 92.0-96.0 [facility] ([place]) Comment on above: Performed By: #### B G #### [address] [address] pCO2 37.8 mmHg Normal 32.0-46.0 [facility] ([place]) Comment on above: Performed By: #### B G #### [address] [address] pH (Bld) 7.311 [pH] Low 7.380-7.460 [facility] ([place]) Comment on above: Performed By: #### B G #### [address] [address] Base excess Calc (Bld) [Moles/Vol] -8.4000 mmol/L Normal [facility] ([place]) Comment on above: Performed By: #### B G #### [address] [address] CO2 [Moles/Vol] 18.5 mmol/L Low 22.0-30.0 [facility] ([place]) Comment on above: Performed By: #### B G #### [address] [address] HCO3 (Bld) [Moles/Vol] 17.4 mmol/L Low 21.0-29.0 A [facility] ([place]) Comment on above: Performed By: #### B G #### [address] [address] Oxygen (Bld) [Partial pressure] 144.0 mm[Hg] High 74.0-108.0 [facility] ([place]) Comment on above: Performed By: #### B G #### [address] [address] Oxygen saturation in Blood 99.4 % High 92.0-96.0 [facility] ([place]) Comment on above: Performed By: #### Asiya G #### [address] [address] pCO2 36.6 mmHg Normal 32.0-46.0 [facility] ([place]) Comment on above: Performed By: #### B G #### [address] [address] pH (Bld) 7.295 [pH] Low 7.380-7.460 [facility] ([place]) Comment on above: Performed By: #### Asiya G #### [address] [address] Base excess Calc (Bld) [Moles/Vol] -5.9000 mmol/L Normal [facility] ([place]) Comment on above: Performed By: #### Asiya G #### [place] [id number] CO2 [Moles/Vol] 19.2 mmol/L Low 22.0-30.0 [facility] ([place]) Comment on above: Performed By: #### Asiya G #### [place] [id number] HCO3 (Bld) [Moles/Vol] 18.2 mmol/L Low 21.0-29.0 A [facility] ([place]) Comment on above: Performed By: #### B G #### [address] [address] Oxygen (Bld) [Partial pressure] 156.1 mm[Hg] High 74.0-108.0 [facility] ([place]) Comment on above: Performed By: #### Asiya G #### [address] [address] Oxygen saturation in Blood 99.3 % High 92.0-96.0 [facility] ([place]) Comment on above: Performed By: #### Asiya G #### [address] [address] pCO2 30.7 mmHg Low 32.0-46.0 [facility] ([place]) Comment on above: Performed By: #### B G #### [address] [address] pH (Bld) 7.391 [pH] Normal 7.380-7.460 [facility] ([place]) Comment on above: Performed By: #### B G #### [address] [address] Base excess Calc (Bld) [Moles/Vol] -5.2000 mmol/L Normal [facility] ([place]) Comment on above: Performed By: #### B G #### [address] [address] CO2 [Moles/Vol] 20.2 mmol/L Low 22.0-30.0 [facility] ([place]) Comment on above: Performed By: #### B G #### [place] [id number] HCO3 (Bld) [Moles/Vol] 19.2 mmol/L Low 21.0-29.0 A [facility] ([place]) Comment on above: Performed By: #### B G #### [address] [address] Oxygen (Bld) [Partial pressure] 307.3 mm[Hg] High 74.0-108.0 [facility] ([place]) Comment on above: Performed By: #### B G #### [address] [address] Oxygen saturation in Blood 99.9 % High 92.0-96.0 [facility] ([place]) Comment on above: Performed By: #### B G #### [address] [address] pCO2 33.0 mmHg Normal 32.0-46.0 [facility] ([place]) Comment on above: Performed By: #### B G #### [address] [address] pH (Bld) 7.382 [pH] Normal 7.380-7.460 [facility] ([place]) Comment on above: Performed By: #### B G #### [address] [address] BGRPon 11-26-2023 Base Excess - POC -4.6 mmol/L Normal [facility] ([place]) Comment on above: Performed By: #### P LTP #### [place] [id number] CO2 [Moles/Vol] 21.5 mmol/L Low 22.0-30.0 [facility] ([place]) Comment on above: Performed By: #### P LTP #### [place] [id number] HCO3 (Bld) [Moles/Vol] 20.3 mmol/L Low 21.0-29.0 A [facility] ([place]) Comment on above: Performed By: #### P LTP #### [place] [address] Oxygen saturation in Blood 100.0 % High 92.0-96.0 [facility] ([place]) Comment on above: Performed By: #### P LTP #### [place] [id number] PCO2 - POC 36.9 mmHg Normal 32.0-46.0 [facility] ([place]) Comment on above: Performed By: #### P LTP #### [place] [id number] pH (poct) - POC 7.359 Low 7.380-7.460 [facility] ([place]) Comment on above: Performed By: #### P LTP #### [place] [address] PO2 - POC 479.7 mmHg High 74.0-108.0 [facility] ([place]) Comment on above: Performed By: #### P LTP #### [place] [id number] Base Excess - POC -8.7 mmol/L Normal [facility] ([place]) Comment on above: Performed By: #### K #### [place] [id number] CO2 [Moles/Vol] 17.1 mmol/L Low 22.0-30.0 [facility] ([place]) Comment on above: Performed By: #### K #### [place] [id number] HCO3 (Bld) [Moles/Vol] 16.1 mmol/L Low 21.0-29.0 A [facility] ([place]) Comment on above: Performed By: #### K #### [place] [id number] Oxygen saturation in Blood 99.7 % High 92.0-96.0 [facility] ([place]) Comment on above: Performed By: #### K #### [place] [id number] PCO2 - POC 31.2 mmHg Low 32.0-46.0 [facility] ([place]) Comment on above: Performed By: #### K #### [place] [id number] pH (poct) - POC 7.331 Low 7.380-7.460 [facility] ([place]) Comment on above: Performed By: #### K #### [place] [id number] PO2 - POC 481.9 mmHg High 74.0-108.0 [facility] ([place]) Comment on above: Performed By: #### K #### [place] [address] Base Excess - POC -6.3 mmol/L Normal [facility] ([place]) Comment on above: Performed By: #### B G #### [place] [id number] CO2 [Moles/Vol] 20.0 mmol/L Low 22.0-30.0 [facility] ([place]) Comment on above: Performed By: #### B G #### [place] [id number] HCO3 (Bld) [Moles/Vol] 18.9 mmol/L Low 21.0-29.0 A [facility] ([place]) Comment on above: Performed By: #### B G #### [address] [address] Oxygen saturation in Blood 99.7 % High 92.0-96.0 [facility] ([place]) Comment on above: Performed By: #### B G #### [address] [address] PCO2 - POC 36.5 mmHg Normal 32.0-46.0 [facility] ([place]) Comment on above: Performed By: #### B G #### [address] [address] pH (poct) - POC 7.332 Low 7.380-7.460 [facility] ([place]) Comment on above: Performed By: #### B G #### [address] [address] PO2 - POC 473.8 mmHg High 74.0-108.0 [facility] ([place]) Comment on above: Performed By: #### B G #### [address] [address] Base Excess - POC -6.4 mmol/L Normal [facility] ([place] Comment on above: Performed By: #### B G #### [address] [address] CO2 [Moles/Vol] 19.7 mmol/L Low 22.0-30.0 [facility] ([place]) Comment on above: Performed By: #### B G #### [address] [address] HCO3 (Bld) [Moles/Vol] 18.6 mmol/L Low 21.0-29.0 [facility] ([place]) Comment on above: Performed By: #### B G #### [address] [address] Oxygen saturation in Blood 99.9 % High 92.0-96.0 [facility] ([place]) Comment on above: Performed By: #### B G #### [address] [address] PCO2 - POC 35.3 mmHg Normal 32.0-46.0 [facility] ([place]) Comment on above: Performed By: #### B G #### [address] [address] pH (poct) - POC 7.340 Low 7.380-7.460 [facility] ([place]) Comment on above: Performed By: #### B G #### [address] [address] PO2 - POC 483.5 mmHg High 74.0-108.0 [facility] ([place]) Comment on above: Performed By: #### Asiya G #### [address] [address] Base Excess - POC -4.6 mmol/L Normal [facility] ([place]) Comment on above: Performed By: #### JACQUELYN PADILLA #### [address] [address] CO2 [Moles/Vol] 21.7 mmol/L Low 22.0-30.0 [facility] ([place]) Comment on above: Performed By: #### JACQUELYN PADILLA #### [address] [address] HCO3 (Bld) [Moles/Vol] 20.5 mmol/L Low 21.0-29.0 [facility] ([place]) Comment on above: Performed By: #### JACQUELYN PADILLA #### [address] [address] Oxygen saturation in Blood 99.9 % High 92.0-96.0 [facility] ([place]) Comment on above: Performed By: #### JACQUELYN PADILLA #### [address] [address] PCO2 - POC 37.9 mmHg Normal 32.0-46.0 [facility] ([place]) Comment on above: Performed By: #### JACQUELYN PADILLA #### [address] [address] pH (poct) - POC 7.351 Low 7.380-7.460 [facility] ([place]) Comment on above: Performed By: #### JACQUELYN PADILLA #### [address] [address] PO2 - POC 236.8 mmHg High 74.0-108.0 [facility] ([place]) Comment on above: Performed By: #### JACQUELYN PADILLA #### [address] [address] BMPon 11-26-2023 BUN/Creatinine Ratio 28.8 ratio High 10.0-22.0 [facility] ([place]) Comment on above: Performed By: #### B G #### [address] [address] Calcium [Mass/Vol] 8.0 mg/dL Low 8.7-10.4 [facility] ([place]) Comment on above: Performed By: #### B G #### [address] [address] Chloride [Moles/Vol] 109 mmol/L Normal 98-110 [facility] ([place]) Comment on above: Performed By: #### B G #### [address] [address] CO2 [Moles/Vol] 21 mmol/L Low 22-32 [facility] ([place]) Comment on above: Performed By: #### B G #### [address] [address] Creatinine [Mass/Vol] 0.80 mg/dL Normal 0.60-1.40 [facility] ([place]) Comment on above: Performed By: #### B G #### [address] [address] Electrolyte Balance 11.0 mEq/L Normal 4.0-15.0 [facility] ([place]) Comment on above: Performed By: #### B G #### [address] [address] Glucose [Mass/Vol] 136 mg/dL High 82-115 [facility] ([place]) Comment on above: Performed By: #### B G #### [place] [id number] Potassium [Moles/Vol] 3.9 mmol/L Normal 3.5-5.0 [facility] ([place]) Comment on above: Performed By: #### B G #### [address] [address] Sodium [Moles/Vol] 141 mmol/L Normal 136-145 [facility] ([place]) Comment on above: Performed By: #### B G #### [address] [address] Urea nitrogen [Mass/Vol] 23.0 mg/dL High 8.0-22.0 [facility] ([place]) Comment on above: Performed By: #### B G #### [place] [address] CAIONon 11-26-2023 Calcium Ionized 1.10 mmol/L Low 1.12-1.32 [facility] ([place]) Comment on above: Performed By: #### B G #### [place] [id number] CARPon 11-26-2023 Ionized Calcium - POC 1.14 mmol/L Normal 1.12-1.32 [facility] ([place]) Comment on above: Performed By: #### G LURP, KRP, HGBRP, HCTRP, CLRP, NARP, CARP, BGRP ####[address] [address] Ionized Calcium - POC 1.18 mmol/L Normal 1.12-1.32 [facility] ([place]) Comment on above: Performed By: #### A JACQUELYN MESA #### [address] [address] Ionized Calcium - POC 1.16 mmol/L Normal 1.12-1.32 [facility] ([place]) Comment on above: Performed By: #### B G #### [address] [address] Ionized Calcium - POC 1.16 mmol/L Normal 1.12-1.32 [facility] ([place]) Comment on above: Performed By: #### B G #### [place] [address] Ionized Calcium - POC 1.22 mmol/L Normal 1.12-1.32 [facility] ([place]) Comment on above: Performed By: #### A JACQUELYN MESA #### [address] [address] CBCon 11-26-2023 Erythrocyte distribution width (RBC) [Ratio] 17.8 % High 11.5-15.5 [facility] ([place]) Comment on above: Performed By: #### B G #### [address] [address] Hematocrit (Bld) [Volume fraction] 28.2 % Low 40.0-52.0 [facility] ([place]) Comment on above: Performed By: #### B G #### [place] [id number] Hgb 9.0 G/dL Low 13.0-17.5 [facility] ([place]) Comment on above: Performed By: #### B G #### [place] [id number] MCH (RBC) [Entitic mass] 26.1 pg Low 27.0-33.0 [facility] ([place]) Comment on above: Performed By: #### B G #### [place] [id number] MCHC 32.0 G/dL Normal 32.0-36.0 [facility] ([place]) Comment on above: Performed By: #### B G #### [place] [id number] MCV (RBC) [Entitic vol] 81.5 fL Normal 81.0-100.0 A [facility] ([place]) Comment on above: Performed By: #### B G #### [place] [id number] Platelet 327 10 3/mcL Normal 150-450 [facility] ([place]) Comment on above: Performed By: #### B G #### [place] [id number] Platelet mean volume (Bld) [Entitic vol] 8.3 fL Normal 6.4-10.5 [facility] ([place]) Comment on above: Performed By: #### B G #### [address] [address] RBC 3.46 10 6/mcL Low 4.50-6.00 [facility] ([place]) Comment on above: Performed By: #### B G #### [address] [address] WBC 31.8 10 3/mcL High 4.5-10.8 [facility] ([place]) Comment on above: Performed By: #### B G #### [address] [address] CLRPon 11-26-2023 Chloride [Moles/Vol] 107 mmol/L Normal 98-110 [facility] ([place]) Comment on above: Performed By: #### G LURP, KRP, HGBRP, HCTRP, CLRP, NARP, CARP, BGRP ####[address] [address] Chloride [Moles/Vol] 107 mmol/L Normal 98-110 [facility] ([place]) Comment on above: Performed By: #### K #### [address] [address] Chloride [Moles/Vol] 108 mmol/L Normal 98-110 [facility] ([place]) Comment on above: Performed By: #### B G #### [address] [address] Chloride [Moles/Vol] 108 mmol/L Normal 98-110 [facility] ([place]) Comment on above: Performed By: #### B G #### [address] [address] Chloride [Moles/Vol] 107 mmol/L Normal 98-110 [facility] ([place]) Comment on above: Performed By: #### A JACQUELYN MESA #### [address] [address] FIBon 11-26-2023 Fibrinogen 421 mg/dL Normal 250-560 [facility] ([place]) Comment on above: Performed By: #### K #### [address] [address] GLURPon 11-26-2023 Glucose [Mass/Vol] 121 mg/dL High 82-115 [facility] ([place]) Comment on above: Performed By: #### G LURP, KRP, HGBRP, HCTRP, CLRP, NARP, CARP, BGRP ####[address] [address] Glucose [Mass/Vol] 106 mg/dL Normal 82-115 [facility] ([place]) Comment on above: Performed By: #### K #### [address] [address] Glucose [Mass/Vol] 112 mg/dL Normal 82-115 [facility] ([place]) Comment on above: Performed By: #### B G #### [address] [address] Glucose [Mass/Vol] 95 mg/dL Normal 82-115 [facility] ([place]) Comment on above: Performed By: #### B G #### [address] [address] Glucose [Mass/Vol] 93 mg/dL Normal 82-115 [facility] ([place]) Comment on above: Performed By: #### A JACQUELYN MESA #### [address] [address] HCTRPon 11-26-2023 Hematocrit (Bld) [Volume fraction] 32.0 % Low 42.0-52.0 [facility] ([place]) Comment on above: Performed By: #### G LURP, KRP, HGBRP, HCTRP, CLRP, NARP, CARP, BGRP ####[address] [address] Hematocrit (Bld) [Volume fraction] 33.0 % Low 42.0-52.0 [facility] ([place]) Comment on above: Performed By: #### K #### [address] [address] Hematocrit (Bld) [Volume fraction] 34.0 % Low 42.0-52.0 [facility] ([place]) Comment on above: Performed By: #### B G #### [address] [address] Hematocrit (Bld) [Volume fraction] 34.0 % Low 42.0-52.0 [facility] ([place]) Comment on above: Performed By: #### B G #### [address] [address] Hematocrit (Bld) [Volume fraction] 36.0 % Low 42.0-52.0 [facility] ([place]) Comment on above: Performed By: #### A JACQUELYN MESA #### [address] [address] HGBRPon 11-26-2023 Hemoglobin (POC) 10.9 G/dL Low 13.0-17.5 [facility] ([place]) Comment on above: Performed By: #### G LURP, KRP, HGBRP, HCTRP, CLRP, NARP, CARP, BGRP ####[address] [address] Hemoglobin (POC) 11.2 G/dL Low 13.0-17.5 [facility] ([place]) Comment on above: Performed By: #### K #### [place] [id number] Hemoglobin (POC) 11.4 G/dL Low 13.0-17.5 [facility] ([place]) Comment on above: Performed By: #### B G #### [place] [id number] Hemoglobin (POC) 11.6 G/dL Low 13.0-17.5 [facility] ([place]) Comment on above: Performed By: #### B G #### [address] [address] Hemoglobin (POC) 12.2 G/dL Low 13.0-17.5 [facility] ([place]) Comment on above: Performed By: #### A JACQUELYN MESA #### [place] [address] KRPon 11-26-2023 Potassium [Moles/Vol] 3.7 mmol/L Normal 3.5-5.0 [facility] ([place]) Comment on above: Performed By: #### G LURP, KRP, HGBRP, HCTRP, CLRP, NARP, CARP, BGRP ####[address] [address] Potassium [Moles/Vol] 3.9 mmol/L Normal 3.5-5.0 [facility] ([place]) Comment on above: Performed By: #### K #### [facility] [address] [place] [address] Potassium [Moles/Vol] 3.6 mmol/L Normal 3.5-5.0 [facility] ([place]) Comment on above: Performed By: #### B G #### [address] [address] Potassium [Moles/Vol] 3.6 mmol/L Normal 3.5-5.0 [facility] ([place]) Comment on above: Performed By: #### B G #### [address] [address] Potassium [Moles/Vol] 3.9 mmol/L Normal 3.5-5.0 [facility] ([place]) Comment on above: Performed By: #### A JACQUELYN MESA #### [address] [address] LABORATORYOrdered By: Piper Ovalle on 11-26-2023 Glucose [Mass/Vol] 124 mg/dL High 82 - 115 mg/dL [facility] LABORATORYOrdered By: Marly Lawler on 11-26-2023 Base [...] Comment on above: Interpretive Data: Pete gonzales [employer] (CHEST, 1991, 102:312S-25S) [...] 11-26-2023 Magnesium [Mass/Vol] 2.1 mg/dL Normal 1.6-2.4 [facility] ([place]) Comment on above: Performed By: #### B G #### [address] [address] NARPon 11-26-2023 Sodium [Moles/Vol] 140 mmol/L Normal 136-145 [facility] ([place]) Comment on above: Performed By: #### G LURP, KRP, HGBRP, HCTRP, CLRP, NARP, CARP, BGRP ####[address] [address] Sodium [Moles/Vol] 138 mmol/L Normal 136-145 [facility] ([place] Comment on above: Performed By: #### K #### [address] [address] Sodium [Moles/Vol] 139 mmol/L Normal 136-145 [facility] ([place]) Comment on above: Performed By: #### B G #### [address] [address] Sodium [Moles/Vol] 139 mmol/L Normal 136-145 [facility] ([place] Comment on above: Performed By: #### B G #### [address] [address] Sodium [Moles/Vol] 140 mmol/L Normal 136-145 [facility] ([place]) Comment on above: Performed By: #### JACQUELYN PADILLA #### [address] [address] PHOSon 11-26-2023 Phosphate [Mass/Vol] 2.7 mg/dL Normal 2.4-5.1 [facility] ([place]) Comment on above: Result Comment: No te - New Reference Range in effect 19 Performed By: #### B G #### [address] [address] PROon 11-26-2023 INR Coag (PPP) [Relative time] 1.2 {INR} Normal [facility] ([place]) Comment on above: Result Comment: [employer] (CHEST, 1992, 102:312S-25S) recommended therapeutic range for oral anticoagulant therapy is: LOW RISK: Prophylaxis of venous thrombosis INR: 2.0-3.0 Treatment of pulmonary embolism 2.0-3.0 Prevention of systemic embolism 2.0-3.0 HIGH RISK: Mechanical prosthetic valves 2.5-3.5 Performed By: #### K #### [place] [id number] PT Coag (PPP) [Time] 14.0 s Normal 9.0-14.4 [facility] ([place]) Comment on above: Result Comment: Effe ctive 10/27/07, Protime results may be affected by some antibiotics (i.e. Ciprofloxacin, Azithromycin, Bactrim) which may potentiate the action of oral anticoagulants, with further increases in Protime/INR. Performed By: #### K #### [place] [id number] Platelet (Product)on 024 Platelet Product Ready Platelet Ready fo r Pickup Normal [facility] ([place]) Comment on above: Order Comment: ON HO LD FOR CVOR Performed By: #### P LTP #### [address] [address] XR CHEST 1 VIEWon 11-26-2023 XR CHEST [...] 11/26/2023 1:29:23 PM Ordering Provider: JORDAN HENRY [facility]) XR ENTERIC TUBE PLACEMENTon 11-26-2023 XR ENTERIC [...] 11/26/2023 1:21:23 PM Ordering Provider: JORDAN HENRY [facility]) A1Con 11-25-2023 Glucose [Mass/Vol] 105 mg/dL Normal [facility] ([place]) Comment on above: Result Comment: Eloise mated Average Glucose calculated by equation ((28.7xA1C)-46.7) Estimated average glucose (eAG) is a calculated value from Hemoglobin A1C and is loan representative of the average blood glucose level in the last 2-3 month period. Normal range: less than 114 mg/dL Performed By: #### R BCP #### [address] [address] HbA1c (Bld) [Mass fraction] 5.3 % Normal 4.0-6.0 [facility]) Comment on above: Performed By: #### R BCP #### [address], [place] [address] ABO/Rh (Gel)on 11-25-2023 ABO/Rh Interp Negative Invalid Interpretation Code [facility] ([place]) Comment on above: Performed By: #### A JACQUELYN MESA #### [facility] [address] [place] [address] ABS (Gel)on 11-25-2023 ABSC Interp (Gel) Negative Normal [facility] ([place]) Comment on above: Performed By: #### A JACQUELYN MESA #### [facility] [address] [place] [address] LABORATORYOrdered By: Donovan Larios on 11-25-2023 ABO [...] 11-25-2023 Cholesterol [Mass/Vol] 118 mg/dL Normal 50-199 [facility] ([place]) Comment on above: Result Comment: Chol esterol Reference Interval: Less than 200 Desirable 200-239 Borderline high risk 240 and above High risk Performed By: #### B G #### [address] [address] Cholesterol in HDL [Mass/Vol] 38 mg/dL Low 40-59 [facility] ([place]) Comment on above: Performed By: #### B G #### [address] [address] Cholesterol in LDL [Mass/Vol] 57 mg/dL Normal 0-129 [facility] ([place]) Comment on above: Performed By: #### B G #### [address] [address] Triglyceride [Mass/Vol] 114 mg/dL Normal 3-149 A [facility] ([place]) Comment on above: Performed By: #### B G #### [address] [address] RBC (Product)on 11-25-2023 RBC Product Ready RBC Ready for Pickup Normal [facility] ([place]) Comment on above: Performed By: #### R BCP #### [address] [address] .Auto Diffon 11-24-2023 Basophil, Absolute 0.1 10 3/mcL Normal 0.0-0.3 [facility] ([place]) Comment on above: Performed By: #### JACQUELYN PADILLA #### [address] [address] Basophils/100 WBC (Bld) 0.6 % Normal 0.0-2.5 A [facility] ([place]) Comment on above: Performed By: #### JACQUELYN PADILLA #### [address] [address] Eosinophil, Absolute 0.3 10 3/mcL Normal 0.0-0.7 [facility] ([place]) Comment on above: Performed By: #### JACQUELYN PADILLA #### [address] [address] Eosinophils/100 WBC (Bld) 2.7 % Normal 0.0-6.0 [facility] ([place]) Comment on above: Performed By: #### JACQUELYN PADILLA #### [address] [address] Lymphocyte, Absolute 1.8 10 3/mcL Normal 0.9-4.3 [facility] ([place]) Comment on above: Performed By: #### JACQUELYN PADILLA #### [address] [address] Lymphocytes/100 WBC (Bld) 16.7 % Low 20.0-40.0 [facility] ([place]) Comment on above: Performed By: #### A JACQUELYN MESA #### [address] [address] Monocyte, Absolute 1.3 10 3/mcL Normal 0.1-1.4 [facility] ([place]) Comment on above: Performed By: #### A JACQUELYN MESA #### [address] [address] Monocytes/100 WBC (Bld) 12.8 % Normal 2.0-13.0 A [facility] ([place]) Comment on above: Performed By: #### A JACQUELYN MESA #### [address] [address] Neutrophils/100 WBC (Bld) 67.2 % Normal 50.0-75.0 [facility] ([place]) Comment on above: Performed By: #### JACQUELYN PADILLA #### [address] [address] .GFRon 11-24-2023 GFR >60 Normal [facility] ([place]) Comment on above: Result Comment: GFR Population [...] square meters Performed By: #### A JACQUELYN EMSA #### [address] [address] GFR Non- >60 Normal [facility] ([place]) Comment on above: Result Comment: GFR Population [...] Performed By: #### A JACQUELYN MESA #### [address] [address] .NEUABSon 11-24-2023 Neutrophil, Absolute 7.0 10 3/mcL Normal 2.3-8.1 [facility] ([place]) Comment on above: Performed By: #### JACQUELYN PADILLA #### [address] [address] 12 Lead EKGon 11-24-2023 12 Lead EKG [facility] Cardiovascular Services [address] [place] [address] 12 Lead EKG 11/24/23 0716 MR#: [id number] Acct: [id number] Name: JUANITA JAY Rep #: [id number] : 1955 68 From: Shravan Bernal MD Attending Dr: Dr. Nacho Issa MD Status : ADM SHARONA Ordering Dr: Nacho Issa MD Date: 11/24/23 Location: [facility] Sex: M C Admitted: 11/21/23 Test [...] IS UNCONFIRMED Confirmed by SHRAVAN BERNAL MD ([id number]), editor farm journal GUILLERMINA ALEXANDRE ([id number]) on 11/24/2023 2:14:51 PM Referred By: Confirmed By:SHRAVAN BERNAL MD 11/24/23 141 Date Shravan Bernal MD CC: Dr. Wisam Monroe MD; Dr. Nacho Issa MD Signed Normal [facility] 12 Lead EKG [facility] Cardiovascular Services [address] [place] [address] 12 Lead EKG 11/24/23 0048 MR#: [id number] Acct: [id number] Name: JUANITA JAY Rep #: [id number] : 1955 68 From: Shravan Bernal MD Attending Dr: Dr. Nacho Issa MD Status : ADM SHARONA Ordering Dr: Merlin Mathias MD Date: 4 Location: [facility] Sex: M C Admitted: 11/21/23 Test [...] IS UNCONFIRMED Confirmed by SHRAVAN BERNAL MD ([id number]), editor farm journal GUILLERMINA ALEXANDRE ([id number]) on 11/24/2023 2:16:53 PM Referred By: Confirmed By:SHRAVAN BERNAL MD 11/24/23 141 Date Shravan Bernal MD CC: Dr. Wisam Monroe MD; Dr. Merlin Mathias MD; Dr. Nacho Issa MD Signed Normal [facility] APTTon 11-24-2023 aPTT Coag (Bld) [Time] 34.7 s Normal 25.0-35.0 [facility] ([place]) Comment on above: Result Comment: For Heparin anticoagulation therapy, the recommended therapeutic range is: 54-77 seconds (APTT Correlation with Anti-Xa therapeutic range of 0.3-0.7 units/ml). PLEASE REFERENCE THE PHARMACY PROTOCOL FOR DOSING. Performed By: #### R BCP #### [address] [address] BGon 11-24-2023 Base excess Calc (Bld) [Moles/Vol] -3.2000 mmol/L Normal [facility] ([place]) Comment on above: Order Comment: on Ro om Air. Preop Cardiothoracic OR (date) Performed By: #### B G #### [address] [address] CO2 [Moles/Vol] 21.6 mmol/L Low 22.0-30.0 [facility] ([place]) Comment on above: Order Comment: on Ro om Air. Preop Cardiothoracic OR (date) Performed By: #### B G #### [address] [address] HCO3 (Bld) [Moles/Vol] 20.6 mmol/L Low 21.0-29.0 A [facility] ([place]) Comment on above: Order Comment: on Ro om Air. Preop Cardiothoracic OR (date) Performed By: #### B G #### [address] [address] Oxygen (Bld) [Partial pressure] 71.2 mm[Hg] Low 74.0-108.0 [facility] ([place]) Comment on above: Order Comment: on Ro om Air. Preop Cardiothoracic OR (date) Performed By: #### B G #### [address] [address] Oxygen saturation in Blood 95.0 % Normal 92.0-96.0 [facility] ([place]) Comment on above: Order Comment: on Ro om Air. Preop Cardiothoracic OR (date) Performed By: #### Asiya G #### [address] [address] pCO2 33.0 mmHg Normal 32.0-46.0 [facility] ([place]) Comment on above: Order Comment: on Ro om Air. Preop Cardiothoracic OR (date) Performed By: #### Asiya G #### [place] [id number] pH (Bld) 7.413 [pH] Normal 7.380-7.460 [facility] ([place]) Comment on above: Order Comment: on Ro om Air. Preop Cardiothoracic OR (date) Performed By: #### Asiya G #### [address] [address] CBCon 11-24-2023 Erythrocyte distribution width (RBC) [Ratio] 17.2 % High 11.5-15.5 [facility] ([place]) Comment on above: Performed By: #### JACQUELYN PADILLA #### [place] [address] Hematocrit (Bld) [Volume fraction] 36.4 % Low 40.0-52.0 [facility] ([place]) Comment on above: Performed By: #### JACQUELYN PADILLA #### [place] [address] Hgb 11.6 G/dL Low 13.0-17.5 [facility] ([place]) Comment on above: Performed By: #### JACQUELYN PADILLA #### [address] [address] MCH (RBC) [Entitic mass] 26.0 pg Low 27.0-33.0 [facility] ([place]) Comment on above: Performed By: #### JACQUELYN PADILLA #### [place] [id number] MCHC 31.8 G/dL Low 32.0-36.0 [facility] ([place]) Comment on above: Performed By: #### JACQUELYN PADILLA #### [address] [address] MCV (RBC) [Entitic vol] 81.7 fL Normal 81.0-100.0 A [facility] ([place]) Comment on above: Performed By: #### JACQUELYN PADILLA #### [address] [address] Platelet 427 10 3/mcL Normal 150-450 [facility] ([place]) Comment on above: Performed By: #### JACQUELYN PADILLA #### [address] [address] Platelet mean volume (Bld) [Entitic vol] 8.1 fL Normal 6.4-10.5 [facility] ([place]) Comment on above: Performed By: #### JACQUELYN PADILLA #### [address] [address] RBC 4.46 10 6/mcL Low 4.50-6.00 [facility] ([place]) Comment on above: Performed By: #### JACQUELYN PADILLA #### [address] [address] WBC 10.5 10 3/mcL Normal 4.5-10.8 [facility] ([place]) Comment on above: Performed By: #### JACQUELYN PADILLA #### [address] [address] CMPon 11-24-2023 Albumin Level 3.9 G/dL Normal 3.2-4.8 [facility] ([place]) Comment on above: Performed By: #### JACQUELYN PADILLA #### [address] [address] Albumin/Globulin [Mass ratio] 1.2 {ratio} Normal 0.9-1.6 [facility] ([place]) Comment on above: Performed By: #### JACQUELYN PADILLA #### [address] [address] ALP [Catalytic activity/Vol] 98 U/L Normal 38-126 [facility] ([place]) Comment on above: Performed By: #### JACQUELYN PADILLA #### [address] [address] ALT/SGPT <8 Low 12-55 [facility] ([place]) Comment on above: Performed By: #### JACQUELYN PADILLA #### [address] [address] AST [Catalytic activity/Vol] 16 U/L Normal 8-34 [facility] ([place]) Comment on above: Performed By: #### JACQUELYN PADILLA #### [address] [address] Bili Total 0.30 mg/dL Normal 0.20-1.20 [facility] ([place]) Comment on above: Result Comment: Use of this assay is not recommended for patients undergoing treatment with eltrombopag due to the potential for falsely elevated results. Performed By: #### JACQUELYN PADILLA #### [place] [id number] BUN/Creatinine Ratio 20.4 ratio Normal 10.0-22.0 [facility] ([place]) Comment on above: Performed By: #### JACQUELYN PADILLA #### [address] [address] Calcium [Mass/Vol] 8.7 mg/dL Normal 8.7-10.4 [facility] ([place]) Comment on above: Performed By: #### JACQUELYN PADILLA #### [address] [address] Chloride [Moles/Vol] 113 mmol/L High 98-110 [facility] ([place]) Comment on above: Performed By: #### JACQUELYN PADILLA #### [address] [address] CO2 [Moles/Vol] 24 mmol/L Normal 22-32 [facility] ([place]) Comment on above: Performed By: #### JACQUELYN PADILLA #### [address] [address] Creatinine [Mass/Vol] 0.93 mg/dL Normal 0.60-1.40 [facility] ([place]) Comment on above: Performed By: #### JACQUELYN PADILLA #### [address] [address] Electrolyte Balance 0.0 mEq/L Low 4.0-15.0 [facility] ([place]) Comment on above: Performed By: #### JACQUELYN PADILLA #### [address] [address] Globulin 3.2 G/dL Normal 1.5-3.8 [facility] ([place]) Comment on above: Performed By: #### JACQUELYN PADILLA #### [address] [address] Glucose [Mass/Vol] 99 mg/dL Normal 82-115 [facility] ([place]) Comment on above: Performed By: #### JACQUELYN PADILLA #### [address] [address] Potassium [Moles/Vol] 3.7 mmol/L Normal 3.5-5.0 [facility] ([place]) Comment on above: Performed By: #### JACQUELYN PADILLA #### [address] [address] Sodium [Moles/Vol] 137 mmol/L Normal 136-145 [facility] ([place]) Comment on above: Performed By: #### JACQUELYN PADILLA #### [address] [address] Total Protein 7.1 G/dL Normal 5.7-8.2 [facility] ([place]) Comment on above: Result Comment: No te - New Reference Range in effect 19 Performed By: #### JACQUELYN PADILLA #### [address] [address] Urea nitrogen [Mass/Vol] 19.0 mg/dL Normal 8.0-22.0 [facility] ([place]) Comment on above: Performed By: #### JACQUELYN PADILLA #### [address] [address] FIBon 11-24-2023 Fibrinogen 443 mg/dL Normal 250-560 [facility] ([place]) Comment on above: Performed By: #### R BCP #### [place] [address] LABORATORYOrdered By: Aniceto Pederson on 11-24-2023 Appearance [...] calculated value from Hemoglobin A1C and is loan representative of the average blood glucose level [...] Comment on above: Interpretive Data: Pete gonzales [employer] (CHEST, 1992, 102:312S-25S) recommended therapeutic range for oral anticoagulant therapy is: LOW RISK: Prophylaxis of venous thrombosis INR: 2.0-3.0 Treatment of pulmonary embolism 2.0-3.0 Prevention of systemic embolism 2.0-3.0 HIGH RISK: Mechanical prosthetic valves 2.5-3.5 PLTon 11-24-2023 Platelet 430 10 3/mcL Normal 150-450 [facility] ([place]) Comment on above: Performed By: #### R BCP #### [place] [address] PROon 11-24-2023 INR Coag (PPP) [Relative time] 1.0 {INR} Normal [facility] ([place]) Comment on above: Result Comment: [employer] (CHEST, 1991, 102:312S-25S) recommended therapeutic range for oral anticoagulant therapy is: LOW RISK: Prophylaxis of venous thrombosis INR: 2.0-3.0 Treatment of pulmonary embolism 2.0-3.0 Prevention of systemic embolism 2.0-3.0 HIGH RISK: Mechanical prosthetic valves 2.5-3.5 Performed By: #### R BCP #### [place] [address] PT Coag (PPP) [Time] 11.9 s Normal 9.0-14.4 [facility] ([place]) Comment on above: Result Comment: Effe ctive 10/27/07, Protime results may be affected by some antibiotics (i.e. Ciprofloxacin, Azithromycin, Bactrim) which may potentiate the action of oral anticoagulants, with further increases in Protime/INR. Performed By: #### R BCP #### [place] [address] UAon 11-24-2023 Color (U) Yellow Normal [facility] ([place]) Comment on above: Performed By: #### U A #### [place] [id number] Glucose (U) [Mass/Vol] Negative Normal Negative [facility] ([place]) Comment on above: Performed By: #### U A #### [place] [id number] Ketones Ql (U) 15 mg/dL Abnormal Neg-Trace [facility] ([place]) Comment on above: Performed By: #### U A #### [place] [address] UA Appear Clear Normal Clear [facility] ([place]) Comment on above: Performed By: #### U A #### [address] [address] UA Blood Trace Normal Neg-Trace [facility] ([place]) Comment on above: Performed By: #### U A #### [address] [address] UA Leuk Est Negative Normal Negative [facility] ([place]) Comment on above: Performed By: #### U A #### [address] [address] UA Nitrite Negative Normal Negative [facility] ([place]) Comment on above: Performed By: #### U A #### [address] [address] UA pH 6.5 Normal 5.0 - 8.0 [facility] ([place]) Comment on above: Performed By: #### U A #### [address] [address] UA Protein Negative Normal Negative [facility] ([place]) Comment on above: Performed By: #### U A #### [place] [address] UA Spec Grav 1.020 Normal [facility] ([place]) Comment on above: Performed By: #### U A #### [place] [address] UA Specimen Type Clean Catch Normal [facility] ([place]) Comment on above: Performed By: #### U A #### [place] [address] UA Urobilinogen 1.0 E.U./dL Normal [facility] ([place]) Comment on above: Performed By: #### U A #### [place] [address] Urobilinogen (U) [Mass/Vol] Negative Normal Neg-Trace [facility] ([place]) Comment on above: Performed By: #### U A #### [place] [address] Vitamin B12on 11-24-2023 Cobalamin (Vitamin B12) [Mass/Vol] 196 pg/mL Low 211-911 [facility] Comment on above: Performed By: #### L 503.6030, L503.0105, L506.0250, L503.6550 ####[facility] [address] [place], [address] XR CHEST 1 VIEWon 11-24-2023 XR CHEST [...] 11/24/2023 7:56:07 PM Ordering Provider: YU RECIO [facility] ([place]) 12 Lead EKGon 11-23-2023 12 Lead EKG [facility] Cardiovascular Services [address] [place] [address] 12 Lead EKG 11/23/23511 MR#: [id number] Acct: [id number] Name: JUANITA JAY Rep #: [id number] : 1955 68 From: Shravan Bernal MD [...] SHRAVAN ([id number]), editor farm journal GUILLERMINA ALEXANDRE ([id number]) on 11/24/2023 2:17:40 PM Referred By: Confirmed By:SHRAVAN BERNAL MD 11/24/23 1417 Date Shravan Bernal MD CC: Dr. Maria Alejandra Low MD; Dr. Wisam Monroe MD; Dr. Nacho Issa MD Signed Normal [facility] Basic Metabolic Profile (BMP )on 11-23-2023 BUN/CRE 17.2 RATIO Normal 10-20 [facility] Comment on above: Performed By: #### L 500.2500, L100.0100 ####[facility] [address] [place], [address] CA,Total 8.9 mg/dL Normal 8.5-10.1 [facility] Comment on above: Performed By: #### L 500.2500, L100.0100 ####[facility] [address] [place], [address] Chloride [Moles/Vol] 114 mmol/L High 98-107 [facility] Comment on above: Performed By: #### L 500.2500, L100.0100 ####[facility] [address] [place], [address] CO2 [Moles/Vol] 22.0 mmol/L Normal 21.0-32.0 [facility] Comment on above: Performed By: #### L 500.2500, L100.0100 ####[facility] [address] [place], [address] Creatinine [Mass/Vol] 0.93 mg/dL Normal 0.70-1.30 [facility] Comment on above: Result Comment: The validity of the calculated GFR GFRAA in patients over 70 years has not been determined. Clinical correlation is essential. Performed By: #### L 500.2500, L100.0100 ####[facility] [address] [place], [address] ECRCL 83.44 ml/min Normal [facility] Comment on above: Performed By: #### L 500.2500, L100.0100 ####[facility] [address] [place], [address] EST GFR - AA 104 mL/min Normal >60 [facility] Comment on above: Result Comment: Afri can Spanish GFR Calc Performed By: #### L 500.2500, L100.0100 ####[facility] [address] [place], [address] GAP 6 Normal 5-15 [facility] Comment on above: Performed By: #### L 500.2500, L100.0100 ####[facility] [address] [place], [address] GFR/1.73 sq M.predicted among non-blacks MDRD (S/P/Bld) [Vol rate/Area] 86 mL/min/{1.73_m2} Normal >60 [facility] Comment on above: Result Comment: Non- GFR Calc Performed By: #### L 500.2500, L100.0100 ####[facility] [address] [place], [address] Glucose [Mass/Vol] 97 mg/dL Normal 74-106 [facility] Comment on above: Performed By: #### L 500.2500, L100.0100 ####[facility] [address] [place], [address] Potassium [Moles/Vol] 3.8 mmol/L Normal 3.5-5.1 [facility] Comment on above: Performed By: #### L 500.2500, L100.0100 ####[facility] [address] [place], [address] Sodium [Moles/Vol] 142 mmol/L Normal 136-145 [facility] Comment on above: Performed By: #### L 500.2500, L100.0100 ####[facility] [address] [place], [address] Urea nitrogen [Mass/Vol] 16 mg/dL Normal 7-18 [facility] Comment on above: Performed By: #### L 500.2500, L100.0100 ####[facility] [address] [place], [address] CBC W/Diff, Automatedon 11-12-2023 Absolute Lymph 1.33 X10 3/uL Normal 0.83-4.51 [facility] Comment on above: Performed By: #### L 500.2500, L100.0100 ####[facility] [address] [place], [address] Absolute Neut 4.8 X10 3/uL Normal 2.0-7.7 [facility] Comment on above: Performed By: #### L 500.2500, L100.0100 ####[facility] [address] [place], [address] Basophils/100 WBC (Bld) 0.9 % Normal 0-1 [facility] Comment on above: Performed By: #### L 500.2500, L100.0100 ####[facility] [address] [place], [address] Eosinophils/100 WBC (Bld) 4.2 % Normal 0-5 [facility] Comment on above: Performed By: #### L 500.2500, L100.0100 ####[facility] [address] [place], [address] Erythrocyte distribution width (RBC) [Ratio] 16.0 % High 11.6-14.6 [facility] Comment on above: Performed By: #### L 500.2500, L100.0100 ####[facility] [address] [place], [address] Hematocrit (Bld) [Volume fraction] 37.7 % Low 40-54 [facility] Comment on above: Performed By: #### L 500.2500, L100.0100 ####[facility] [address] [place], [address] Hemoglobin (Bld) [Mass/Vol] 11.5 g/dL Low 13.0-16.5 [facility] Comment on above: Performed By: #### L 500.2500, L100.0100 ####[facility] [address] [place], [address] IG% 0.100 Normal 0.0-0.9 [facility] Comment on above: Result Comment: IG% - Immature Granulocytes (promyelocytes, myelocytes and metamyelocytes) > 1% indicates that a LEFT SHIFT is Present. Performed By: #### L 500.2500, L100.0100 ####[facility] [address] [place], [address] Lymphocytes/100 WBC (Bld) 17.9 % Low 19-41 [facility] Comment on above: Performed By: #### L 500.2500, L100.0100 ####[facility] [address] [place], [address] MCH (RBC) [Entitic mass] 25.6 pg Low 27.0-32.0 [facility] Comment on above: Performed By: #### L 500.2500, L100.0100 ####[facility] [address] [place], [address] MCHC (RBC) [Mass/Vol] 30.5 g/dL Low 32-36 [facility] Comment on above: Performed By: #### L 500.2500, L100.0100 ####[facility] [address] [place], [address] MCV (RBC) [Entitic vol] 83.8 fL Normal 80-94 [facility] Comment on above: Performed By: #### L 500.2500, L100.0100 ####[facility] [address] [place], [address] Monocytes/100 WBC (Bld) 12.3 % High 0-10 [facility] Comment on above: Performed By: #### L 500.2500, L100.0100 ####[facility] [address] [place], [address] Neutrophils/100 WBC (Bld) 64.6 % Normal 47-70 [facility] Comment on above: Performed By: #### L 500.2500, L100.0100 ####[facility] [address] [place], [address] Nucleated RBC (Bld) [#/Vol] 0 10*3/uL Normal 0-5 [facility] Comment on above: Performed By: #### L 500.2500, L100.0100 ####[facility] [address] [place], [address] Platelet mean volume (Bld) [Entitic vol] 9.8 fL Normal 6.2-12.0 [facility] Comment on above: Performed By: #### L 500.2500, L100.0100 ####[facility] [address] [place], [address] Platelets (Bld) [#/Vol] 489 10*3/uL High 150-450 [facility] Comment on above: Performed By: #### L 500.2500, L100.0100 ####[facility] [address] [place], [address] RBC (Bld) [#/Vol] 4.50 10*6/uL Low 4.6-6.2 [facility] Comment on above: Performed By: #### L 500.2500, L100.0100 ####[facility] [address] [place], [address] RDW SD 49.0 fl High 35.1-43.9 [facility] Comment on above: Performed By: #### L 500.2500, L100.0100 ####[facility] [address] [place], [address] WBC (Bld) [#/Vol] 7.4 10*3/uL Normal 4.4-11.0 [facility] Comment on above: Performed By: #### L 500.2500, L100.0100 ####[facility] [address] [facility] [place], [address] 12 Lead EKGon 11-22-2023 12 Lead EKG [facility] Cardiovascular Services [address] [place] [address] 12 Lead EKG 11/22/23 0523 MR#: [id number] Acct: [id number] Name: JUANITA JAY Rep #: [id number] : 1955 68 From: Shravan Bernal MD [...] IS UNCONFIRMED Confirmed by GABE CARRILLO, SHRAVAN ([id number]), editor farm journal GUILLERMINA ALEXANDRE ([id number]) on 11/24/2023 2:18:26 PM Referred By: Confirmed By:SHRAVAN BERNAL MD 11/24/23 1418 Date Shravan Bernal MD CC: Dr. Maria Alejandra Low MD; Dr. Wisam Monroe MD; Dr. Nacho Issa MD Signed Normal [facility] Basic Metabolic Profile (BMP )on 11-22-2023 BUN/CRE 19.9 RATIO Normal - [facility] Comment on above: Performed By: #### L 500.2500, L100.0500, L500.4100, L100.4500 #### [facility] [address] [place], [address] CA,Total 9.1 mg/dL Normal 8.5-10.1 [facility] Comment on above: Performed By: #### L 500.2500, L100.0500, L500.4100, L100.4500 #### [facility] [address] [place], [address] Chloride [Moles/Vol] 109 mmol/L High 98-107 [facility] Comment on above: Performed By: #### L 500.2500, L100.0500, L500.4100, L100.4500 #### [facility] [address] [place], [address] CO2 [Moles/Vol] 27.0 mmol/L Normal 21.0-32.0 [facility] Comment on above: Performed By: #### L 500.2500, L100.0500, L500.4100, L100.4500 #### [facility] [address] [place], [address] Creatinine [Mass/Vol] 0.96 mg/dL Normal 0.70-1.30 [facility] Comment on above: Result Comment: The validity of the calculated GFR GFRAA in patients over 70 years has not been determined. Clinical correlation is essential. Performed By: #### L 500.2500, L100.0500, L500.4100, L100.4500 #### [facility] [address] [place], [address] ECRCL 80.83 ml/min Normal [facility] Comment on above: Performed By: #### L 500.2500, L100.0500, L500.4100, L100.4500 #### [facility] [address] [place], [address] EST GFR - AA 101 mL/min Normal >60 [facility] Comment on above: Result Comment: Afri can Spanish GFR Calc Performed By: #### L 500.2500, L100.0500, L500.4100, L100.4500 #### [facility] [address] [place], [address] GAP 2 Low 5-15 [facility] Comment on above: Performed By: #### L 500.2500, L100.0500, L500.4100, L100.4500 #### [facility] [address] [place], [address] GFR/1.73 sq M.predicted among non-blacks MDRD (S/P/Bld) [Vol rate/Area] 83 mL/min/{1.73_m2} Normal >60 [facility] Comment on above: Result Comment: Non- GFR Calc Performed By: #### L 500.2500, L100.0500, L500.4100, L100.4500 #### [facility] [address] [place], [address] Glucose [Mass/Vol] 105 mg/dL Normal 74-106 [facility] Comment on above: Result Comment: Fast ing Glucose result from 100 to 125 mg/dL suggests IMPAIRED HOMEOSTASIS per A.D.A. criteria. Performed By: #### L 500.2500, L100.0500, L500.4100, L100.4500 #### [facility] [address] [place], [address] Potassium [Moles/Vol] 4.0 mmol/L Normal 3.5-5.1 [facility] Comment on above: Performed By: #### L 500.2500, L100.0500, L500.4100, L100.4500 #### [facility] [address] [place], [address] Sodium [Moles/Vol] 138 mmol/L Normal 136-145 [facility] Comment on above: Performed By: #### L 500.2500, L100.0500, L500.4100, L100.4500 #### [facility] [address] [place], [address] Urea nitrogen [Mass/Vol] 19 mg/dL High 7-18 [facility] Comment on above: Performed By: #### L 500.2500, L100.0500, L500.4100, L100.4500 #### [facility] [address] [place], [address] CBC-Complete Blood Cnt No Di ffon 11-22-2023 Erythrocyte distribution width (RBC) [Ratio] 15.9 % High 11.6-14.6 [facility] Comment on above: Performed By: #### L 500.2500, L100.0500, L500.4100, L100.4500 #### [facility] [address] [place], [address] Hematocrit (Bld) [Volume fraction] 37.0 % Low 40-54 [facility] Comment on above: Performed By: #### L 500.2500, L100.0500, L500.4100, L100.4500 #### [facility] [address] [place], [address] Hemoglobin (Bld) [Mass/Vol] 11.4 g/dL Low 13.0-16.5 [facility] Comment on above: Performed By: #### L 500.2500, L100.0500, L500.4100, L100.4500 #### [facility] [address] [place], [address] MCH (RBC) [Entitic mass] 26.0 pg Low 27.0-32.0 [facility] Comment on above: Performed By: #### L 500.2500, L100.0500, L500.4100, L100.4500 #### [facility] [address] [place], [address] MCHC (RBC) [Mass/Vol] 30.8 g/dL Low 32-36 [facility] Comment on above: Performed By: #### L 500.2500, L100.0500, L500.4100, L100.4500 #### [facility] [address] [place], [address] MCV (RBC) [Entitic vol] 84.3 fL Normal 80-94 [facility] Comment on above: Performed By: #### L 500.2500, L100.0500, L500.4100, L100.4500 #### [facility] [address] [place], [address] Platelet mean volume (Bld) [Entitic vol] 9.7 fL Normal 6.2-12.0 [facility] Comment on above: Performed By: #### L 500.2500, L100.0500, L500.4100, L100.4500 #### [facility] [address] [place], [address] Platelets (Bld) [#/Vol] 492 10*3/uL High 150-450 [facility] Comment on above: Performed By: #### L 500.2500, L100.0500, L500.4100, L100.4500 #### [facility] [address] [place], [address] RBC (Bld) [#/Vol] 4.39 10*6/uL Low 4.6-6.2 [facility] Comment on above: Performed By: #### L 500.2500, L100.0500, L500.4100, L100.4500 #### [facility] [address] [place], [address] RDW SD 48.7 fl High 35.1-43.9 [facility] Comment on above: Performed By: #### L 500.2500, L100.0500, L500.4100, L100.4500 #### [facility] [address] [place], [address] WBC (Bld) [#/Vol] 8.1 10*3/uL Normal 4.4-11.0 [facility] Comment on above: Performed By: #### L 500.2500, L100.0500, L500.4100, L100.4500 #### [facility] [address] [place], [address] Consultation - Cardiologyon 11-22-2023 Consultation - Cardiology [facility] Medical Records Department [address] [place] [address] Consultation - Cardiology 11/22/23 1447 MR#: [id number] Acct: [id number] Name: JUANITA JAY Rep #: [id number] : 1955 68 From: Merlin Mathias MD PCP: Dr. Wisam Monroe MD Status:ADM SHARONA Location: [place] [address] Assessment Plan Assessment/Plan (1) Chest pain: QUALIFIERS: [...] Patient is currently stable and chest pain-free. [facility] Medical History (Updated 11/22/23 @ [...] No Charges/Coding Visit Charges Inpatient E M: 18402 Init Hosp L2 Objective Data Vital Signs: [...] CC: Dr. Wisam Monroe MD Signed Normal [facility] Differential Commenton 11-21 SMEAR COMMENT SCANNED Normal [facility] Comment on above: Result Comment: BONIFACIO CELLS RARE MONOCYTOSIS PRESENT MARKED INCREASE PLATLET ESTIMATE Performed By: #### L 500.2500, L100.0500, L500.4100, L100.4500 #### [facility] [address] [place], [address] Lipid Profileon 11-22-2023 Cholesterol [Mass/Vol] 174 mg/dL Normal 200 [facility] Comment on above: Result Comment: <200 mg/dL Desirable 200-240 mg/dL Borderline >240 mg/dL High Risk Performed By: #### L 500.2500, L100.0500, L500.4100, L100.4500 #### [facility] [address] [place], [address] Cholesterol in HDL [Mass/Vol] 45 mg/dL Normal [facility] Comment on above: Result Comment: The drugs N-Acetylcysteine and Metamizole may falsely depress this assay. Reference Range HDL <40 mg/dL Low HDL Cholesterol HDL >or= 60 mg/dL High HDL Cholesterol Performed By: #### L 500.2500, L100.0500, L500.4100, L100.4500 #### [facility] [address] [place], [address] Cholesterol in LDL [Mass/Vol] 110 mg/dL Normal 0-130 [facility] Comment on above: Performed By: #### L 500.2500, L100.0500, L500.4100, L100.4500 #### [facility] [address] [place], [address] Cholesterol in VLDL [Mass/Vol] 19 mg/dL Normal 5-40 [facility] Comment on above: Performed By: #### L 500.2500, L100.0500, L500.4100, L100.4500 #### [facility] [address] [place], [address] Triglyceride [Mass/Vol] 94 mg/dL Normal [facility] Comment on above: Result Comment: The drugs N-Acetylcysteine and Metamizole may falsely depress this assay. Serum Triglycerides Reference Interval Normal <150 mg/dL Borderline high 150 - 199 mg/dL High 200 - 499 mg/dL Very High > or = 500 mg/dL Performed By: #### L 500.2500, L100.0500, L500.4100, L100.4500 #### [facility] [address] [place], [address] Stress Reporton 11-22-2023 Stress Report [facility] Cardiovascular Services [address] [place] [address] MR#: [id number] Acct: [id number] Name: JUANITA JAY Rep #: [id number] : 1955 68 From: Merlin Mathias MD [...] is 64%. This note was generated with better.ation software. It may contain incorrect words, spelling, and punctuation that were not noted in checking the note before signing. 11/22/238 Date Merlin Mathias MD CC: Dr. Raz Staples DO; Dr. Wisam Monroe MD; Dr. Nacho Issa MD; Dr. Felice Mcclain MD Date Dictated: 11/22/231224 Date Transcribed: 11/22/231224 Pattern Cutter: NN Signed Normal [facility] 12 Lead EKGon 11-21-2023 12 Lead EKG [facility] Cardiovascular Services [address] [place] [address] 12 Lead EKG 11/21/23 1522 MR#: [id number] Acct: [id number] Name: JUANITA JAY Rep #: [id number] : 1955 68 From: Shravan Bernal MD Attending Dr: Dr. Nacho Issa MD Status : ADM SHARONA Ordering Dr: Raz Staples DO Date: 11/21/23 Location: [facility] Sex: M C Admitted: 11/21/23 Test [...] SHRAVAN ([id number]), editor farm journal YOVANI YANEZ ([id number]) on 11/24/2023 2:32:18 PM Referred By: RANDY Confirmed By:SHRAVAN BERNAL MD 11/24/23 1432 Date Shravan Bernal MD CC: Dr. Raz Staples DO; Dr. Wisam Monroe MD; Dr. Nacho Issa MD Signed Normal [facility] 12 Lead EKG [facility] Cardiovascular Services [address] [place] [address] 12 Lead EKG 11/21/23 0855 MR#: [id number] Acct: [id number] Name: JUANITA JAY Rep #: [id number] : 1955 68 From: Merlin Mathias MD Attending Dr: Dr. Nacho Issa MD Status : ADM SHARONA Ordering Dr: Felice Mcclain MD Date: 11/21/23 Location: [facility] Sex: M C Admitted: 11/21/23 Test [...] Abnormal ECG Confirmed by MARCIO CARRILLO, LISA ([id number]), editor farm journal GUILLERMINA ALEXANDRE ([id number]) on 11/24/2023 9:30:30 AM Referred By: UG Confirmed By:CEASAR MATHIAS MD 11/24/23929 Merlin Mathias MD CC: Dr. Wisam Monroe MD; Dr. Nacho Issa MD; Dr. Felice Mcclain MD Signed Normal [facility] Basic Metabolic Profile (BMP )on 11-21-2023 BUN/CRE 18.3 RATIO Normal 10-20 [facility] Comment on above: Order Comment: 1Y Performed By: #### L 501.5425, L100.0100, L500.2500 ####[facility] [address] [place], [address] CA,Total 9.2 mg/dL Normal 8.5-10.1 [facility] Comment on above: Order Comment: 1Y Performed By: #### L 501.5425, L100.0100, L500.2500 ####[facility] [address] [place], [address] Chloride [Moles/Vol] 112 mmol/L High 98-107 [facility] Comment on above: Order Comment: 1Y Performed By: #### L 501.5425, L100.0100, L500.2500 ####[facility] [address] [place], [address] CO2 [Moles/Vol] 25.0 mmol/L Normal 21.0-32.0 [facility] Comment on above: Order Comment: 1Y Performed By: #### L 501.5425, L100.0100, L500.2500 ####[facility] [address] [place], [address] Creatinine [Mass/Vol] 1.09 mg/dL Normal 0.70-1.30 [facility] Comment on above: Order Comment: 1Y Result Comment: The validity of the calculated GFR GFRAA in patients over 70 years has not been determined. Clinical correlation is essential. Performed By: #### L 501.5425, L100.0100, L500.2500 ####[facility] [address] [place], [address] ECRCL 66.97 ml/min Normal [facility] Comment on above: Order Comment: 1Y Performed By: #### L 501.5425, L100.0100, L500.2500 ####[facility] [address] [place], [address] EST GFR - AA 86 mL/min Normal >60 [facility] Comment on above: Order Comment: 1Y Result Comment: Afri can Spanish GFR Calc Performed By: #### L 501.5425, L100.0100, L500.2500 ####[facility] [address] [place], [address] GAP 4 Low 5-15 [facility] Comment on above: Order Comment: 1Y Performed By: #### L 501.5425, L100.0100, L500.2500 ####[facility] [address] [place], [address] GFR/1.73 sq M.predicted among non-blacks MDRD (S/P/Bld) [Vol rate/Area] 71 mL/min/{1.73_m2} Normal >60 [facility] Comment on above: Order Comment: 1Y Result Comment: Non- GFR Calc Performed By: #### L 501.5425, L100.0100, L500.2500 ####[facility] [address] [place], [address] Glucose [Mass/Vol] 117 mg/dL High 74-106 [facility] Comment on above: Order Comment: 1Y Result Comment: Fast ing Glucose result from 100 to 125 mg/dL suggests IMPAIRED HOMEOSTASIS per A.D.A. criteria. Performed By: #### L 501.5425, L100.0100, L500.2500 ####[facility] [address] [place], [address] Potassium [Moles/Vol] 3.9 mmol/L Normal 3.5-5.1 [facility] Comment on above: Order Comment: 1Y Performed By: #### L 501.5425, L100.0100, L500.2500 ####[facility] [address] [place], [address] Sodium [Moles/Vol] 141 mmol/L Normal 136-145 [facility] Comment on above: Order Comment: 1Y Performed By: #### L 501.5425, L100.0100, L500.2500 ####[facility] [address] [place], [address] Urea nitrogen [Mass/Vol] 20 mg/dL High 7-18 [facility] Comment on above: Order Comment: 1Y Performed By: #### L 501.5425, L100.0100, L500.2500 ####[facility] [address] [place], [address] CBC W/Diff, Automatedon 08-0 Absolute Lymph 1.64 X10 3/uL Normal 0.83-4.51 [facility] Comment on above: Performed By: #### L 501.5425, L100.0100, L500.2500 ####[facility] [address] [place], [address] Absolute Neut 6.9 X10 3/uL Normal 2.0-7.7 [facility] Comment on above: Performed By: #### L 501.5425, L100.0100, L500.2500 ####[facility] [address] [place], [address] Basophils/100 WBC (Bld) 0.7 % Normal 0-1 [facility] Comment on above: Performed By: #### L 501.5425, L100.0100, L500.2500 ####[facility] [address] [place], [address] Eosinophils/100 WBC (Bld) 2.5 % Normal 0-5 [facility] Comment on above: Performed By: #### L 501.5425, L100.0100, L500.2500 ####[facility] [address] [place], [address] Erythrocyte distribution width (RBC) [Ratio] 16.0 % High 11.6-14.6 [facility] Comment on above: Performed By: #### L 501.5425, L100.0100, L500.2500 ####[facility] [address] [place], [address] Hematocrit (Bld) [Volume fraction] 38.7 % Low 40-54 [facility] Comment on above: Performed By: #### L 501.5425, L100.0100, L500.2500 ####[facility] [address] [place], [address] Hemoglobin (Bld) [Mass/Vol] 11.5 g/dL Low 13.0-16.5 [facility] Comment on above: Performed By: #### L 501.5425, L100.0100, L500.2500 ####[facility] [address] [place], [address] IG% 0.400 Normal 0.0-0.9 [facility] Comment on above: Result Comment: IG% - Immature Granulocytes (promyelocytes, myelocytes and metamyelocytes) > 1% indicates that a LEFT SHIFT is Present. Performed By: #### L 501.5425, L100.0100, L500.2500 ####[facility] [address] [place], [address] Lymphocytes/100 WBC (Bld) 16.4 % Low 19-41 [facility] Comment on above: Performed By: #### L 501.5425, L100.0100, L500.2500 ####[facility] [address] [place], [address] MCH (RBC) [Entitic mass] 25.1 pg Low 27.0-32.0 [facility] Comment on above: Performed By: #### L 501.5425, L100.0100, L500.2500 ####[facility] [address] [place], [address] MCHC (RBC) [Mass/Vol] 29.7 g/dL Low 32-36 [facility] Comment on above: Performed By: #### L 501.5425, L100.0100, L500.2500 ####[facility] [address] [place], [address] MCV (RBC) [Entitic vol] 84.3 fL Normal 80-94 [facility] Comment on above: Performed By: #### L 501.5425, L100.0100, L500.2500 ####[facility] [address] [place], [address] Monocytes/100 WBC (Bld) 10.9 % High 0-10 [facility] Comment on above: Performed By: #### L 501.5425, L100.0100, L500.2500 ####[facility] [address] [place], [address] Neutrophils/100 WBC (Bld) 69.1 % Normal 47-70 [facility] Comment on above: Performed By: #### L 501.5425, L100.0100, L500.2500 ####[facility] [address] [place], [address] Nucleated RBC (Bld) [#/Vol] 0 10*3/uL Normal 0-5 [facility] Comment on above: Performed By: #### L 501.5425, L100.0100, L500.2500 ####[facility] [address] [place], [address] Platelet mean volume (Bld) [Entitic vol] 10.0 fL Normal 6.2-12.0 [facility] Comment on above: Performed By: #### L 501.5425, L100.0100, L500.2500 ####[facility] [address] [place], [address] Platelets (Bld) [#/Vol] 522 10*3/uL High 150-450 [facility] Comment on above: Performed By: #### L 501.5425, L100.0100, L500.2500 ####[facility] [address] [place], [address] RBC (Bld) [#/Vol] 4.59 10*6/uL Low 4.6-6.2 [facility] Comment on above: Performed By: #### L 501.5425, L100.0100, L500.2500 ####[facility] [address] [place], [address] RDW SD 49.2 fl High 35.1-43.9 [facility] Comment on above: Performed By: #### L 501.5425, L100.0100, L500.2500 ####[facility] [address] [place], [address] WBC (Bld) [#/Vol] 10.0 10*3/uL Normal 4.4-11.0 [facility] Comment on above: Performed By: #### L 501.5425, L100.0100, L500.2500 ####[facility] [address] [place], [address] Chest 1 View (Portable)on Chest 1 View (Portable) [facility] Imaging Services [address] [place] [address] Chest 1 View (Portable) MR#: [id number] Acct: [id number] Name: JUANITA JAY Rep #: [id number] : 1955 M 68 From: Marco rodney MD PCP: Dr. Wisam Monroe MD Status: [facility] Study: Chest 1 View (Portable) Date of Exam: 11/21/23 Exam# [id number] Ordering Dr: Felice Mcclain MD [id number] INDICATION: chest pain EXAMINATION/TECHNIQU E: X-RAY - [...] Wisam Monroe MD; Dr. Felice Mcclain MD Pattern Cutter: Signed Normal [facility] Echo Completeon 11-21-2023 Echo Complete [facility] Cardi[facility] Services [place] [address] Echo Complete 11/21/23 1543 MR#: [id number] Acct: [id number] Name: JUANITA JAY Rep #: [id number] : 1955 68 From: Merlin Mathias MD Attending Dr: Dr. Raz Staples, DO Status : ADM SHARONA Ordering Dr: Raz Staples DO Date: 11/21/23 Location: [facility] Sex: M C Admitted: 11/21/23 Reason [...] Date Dictated: 11/21/23 1543 Date Transcribed: 11/21/231703 Pattern Cutter: Christina De Guzman [facility] Emergency Department Summary on 11-21-2023 Emergency Department Summary [facility] Medical Records Department [address] [place] [address] Emergency Department Summary 11/21/23 MR#: [id number] Acct: [id number] Name: JUANITA JAY Rep #: [id number] : 1955 68 From: Felice Mcclain MD PCP: Dr. Wisam Monroe MD Status:ADM SHARONA Location: [address] History of Present Illness Chief Complaint: [...] Air Ro (more content not included)... Normal [facility] Ferritinon 11-21-2023 Ferritin [Mass/Vol] 14 ng/mL Low 26-388 [facility] Comment on above: Order Comment: Has P atient had X-rays with Contrast this admission? NN Performed By: #### L 503.6030, L503.0105, L506.0250, L503.6550 ####[facility] [address] [place], [address] Folates, (Folic Acid)on FOLATES 5.60 ng/mL Normal 3.1-55.4 [facility] Comment on above: Order Comment: Has P atient had X-rays with Contrast this admission? NN Performed By: #### L 503.6030, L503.0105, L506.0250, L503.6550 ####[facility] [address] [place], [address] H AND P Exam - Hospitaliston 11-21-2023 H&P Exam - Hospitalist [facility] Medical Records Department [address] [place] [address] H P Exam - Hospitalist 11/21/23 1402 MR#: [id number] Acct: [id number] Name: JUANITA JAY Rep #: [id number] : 1955 68 From: Raz Staples DO PCP: Dr. Wisam Monroe MD Status:ADM SHARONA Location: [place] [address] HPI - General General Date of Admission: 11/21/23 Date of Service: 11/21/23 Chief Complaint: Chest pain HPI Narrative JUANITA JAY, is a 68 M who presented to [facility] ED on 11/21/2023 with chest pain. Patient has history of MS diagnosed in 2018, follows with neurology at [facility]. Notes that his primary MS symptom is [...] No other acute concerns at this time. [facility] Medical History (Updated 11/21/23 @ [...] developed HEENT (more content not included)... Normal [facility] Hemoglobin A1con 11-21-2023 HbA1c (Bld) [Mass fraction] 5.2 % Normal 3.8-5.6 [facility] Comment on above: Result Comment: Norm al < 5.7 % Prediabetic 5.7 - 6.4 % Diabetic >or= 6.5 % Please note range changes. Performed By: #### L 501.9914, L501.9520 #### [facility] [address] [place], [address] Iron+Iron Binding Capacityon 11-21-2023 Iron [Mass/Vol] 27 ug/dL Low 65-175 [facility] Comment on above: Order Comment: Has P atient had X-rays with Contrast this admission? NN Performed By: #### L 503.6030, L503.0105, L506.0250, L503.6550 ####[facility] [address] [place], [address] IRON SATURATION 6.2 Low 15.0-55.0 [facility] Comment on above: Order Comment: Has Sadiq yoder had X-rays with Contrast this admission? NN Performed By: #### L 503.6030, L503.0105, L506.0250, L503.6550 ####[facility] [address] [place], [address] TIBC 437 ug/dL Normal 250-450 [facility] Comment on above: Order Comment: Has Sadiq yoder had X-rays with Contrast this admission? NN Performed By: #### L 503.6030, L503.0105, L506.0250, L503.6550 ####[facility] [address] [place], [address] L501.4020on 11-21-2023 TROPONIN-I HS 10 pg/mL Normal 3.0-78.0 [facility] Comment on above: Result Comment: Plea se Note: New Test Units and Gender Specific Reference Ranges. For more information see Policy Stat Procedure [facility] High Sensitivity Troponin (TNIH) and attachments. Performed By: #### L 501.4020 ####[facility] [address] [place], [address] L501.5425on 11-21-2023 TROPONIN-I HS 7 pg/mL Normal 3.0-78.0 [facility] Comment on above: Order Comment: 1Y Result Comment: Plea se Note: New Test Units and Gender Specific Reference Ranges. For more information see Policy Stat Procedure [facility] High Sensitivity Troponin (TNIH) and attachments. Performed By: #### L 501.5425, L100.0100, L500.2500 ####[facility] [address] [place], [address] Thyroid Stim Hormone (TSH)on 11-21-2023 TSH 1.31 uIU/mL Normal 0.358-3.74 [facility] Comment on above: Performed By: #### L 501.9985, L501.9520 ####[facility] [address] [place], [address] BRAIN & CERVICAL SPINE [facility] Brain Enhancing Lesions None C [facility] Brain Interval Improvement None [facility] Brain New T2 Lesions None Site [facility] Brain Other Significant MRI Findings None. [facility] Brain Parenchymal Volume Loss Moderate [facility] Brain T2 [place] of Disease Moderate [facility] MR Brain WO and W contrast I Von 08-05-2023 IMPRESSION: Multiple intracranial white matter lesions compatible with multiple sclerosis. No new T2 lesions and no new enhancing lesions. Moderate parenchymal volume loss. Other Significant Intracranial Findings: None Pattern Cutter: PSCB Transcribe Date/Time: Aug 05 2023 10:42A Dictated by : TAWANDA MEHTA MD This examination was interpreted and the report reviewed and electronically signed by: TAWANDA MEHTA MD on Aug 05 2023 10:46AM [facility] DIVISION OF RADIOLOGY * * *Final Report* * * DATE OF EXAM: Aug 05 2023 10:30AM [facility] 0295 - MRI BRAIN WO/W IVCON / [...] Improvement: None. New Enhancing Lesions: None T2 [place] of Disease: Moderate. Parenchymal Volume Loss: Moderate. Other Significant Findings: None. *Note:? The definition of new T2 Lesions includes both new and enlarging plaques on T2-weighted FLAIR images (new lesions greater than or equal to 5mm3 or an increase in diameter of an existing lesion by greater than or equal to 2mm). DIVISION OF RADIOLOGY Provider, [facility] [place] - 08/05/2023 * * *Final Report* * * DATE OF EXAM: Aug 05 2023 10:30AM [facility] 0295 - MRI BRAIN WO/W IVCON / [...] Improvement: None. New Enhancing Lesions: None T2 [place] of Disease: Moderate. Parenchymal Volume Loss: Moderate. [...] volume loss. Other Significant Intracranial Findings: None Pattern Cutter: CLARIBEL Transcribe Date/Time: Aug 05 2023 10:42A Dictated by : TAWANDA MEHTA MD This examination was interpreted and the report reviewed and electronically signed by: TAWANDA MEHTA MD on Aug 05 2023 10:46AM EST [facility] MR Brain WO and W contrast I VOrdered By: Ccf Provider on 08-05-2023 [facility] No Panel Informationon 08-04 Radiology Study observation (narrative) [facility] ED Nursing Noteon 02-15-2023 ED Nursing [...] Medical History: Diagnosis Date MS (multiple sclerosis) ([facility]) SURGICAL HISTORY History reviewed. No pertinent surgical [...] Oral S (more content not included)... Normal [facility] No Panel Informationon 02-15 Khoa Goldberg MD 02/15/2023 7:16 PM [employer] Performed by: Khoa Goldberg MD Authorized by: Khoa Goldberg MD Consent: Consent obtained: Verbal Consent given by: Patient Risks discussed: Poor cosmetic result, poor wound healing, pain and infection [place] protocol: Procedure explained and questions answered to [...] Procedure completion: Tolerated well, no immediate complications [facility] Khoa Goldberg MD 02/15/2023 7:16 PM [employer] [employer] Performed by: Khoa Goldberg MD Authorized by: Khoa Goldberg MD Consent: Consent obtained: Verbal Risks discussed: Infection, poor cosmetic result and poor wound healing Alternatives discussed: Delayed treatment [place] protocol: Procedure explained and questions answered to [...] Procedure completion: Tolerated well, no immediate complications [facility] Absolute lymphocyte counton 01-28-2022 Lymphocytes Auto (Unsp spec) [#/Vol] 1.50 10*3/uL 0.83-4.51 [facility] Work Phone: Basophil percentageon 2021 Basophils/100 WBC (Bld) 0.5 % 0-1 [facility] Work Phone: Bilirubin [Mass/Vol] 0.40 mg/dL 0.20-1.00 [facility] Work Phone: [phone] Comment on above: For patients on eltr ombopag therapy, use of [employer] [place] TBIL is not recommended. Chloride [Moles/Vol] 110 mmol/L 98-107 [facility] Work Phone: Eosinophils/100 WBC (Bld) 1.7 % 0-5 [facility] Work Phone: Glucose [Mass/Vol] 96 mg/dL 74-106 [facility] Work Phone: Neutrophils (Bld) [#/Vol] 11.6 10*3/uL 2.0-7.7 [facility] Work Phone: Neutrophils/100 WBC (Bld) 77.5 % 47-70 [facility] Work Phone: Potassium [Moles/Vol] 4.0 mmol/L 3.5-5.1 [facility] Work Phone: Protein [Mass/Vol] 7.4 g/dL 6.4-8.2 [facility] Work Phone: Sodium [Moles/Vol] 142 mmol/L 136-145 [facility] Work Phone: WBC (Bld) [#/Vol] 14.9 10*3/uL 4.4-11.0 [facility] Work Phone: Bilirubin Test strip Ql (U)o n 01-28-2022 Bilirubin Ql (U) Negative Negative [facility] Work Phone: Blood erythrocytes count (nu mber/volume)on 01-28-2022 RBC (Bld) [#/Vol] 4.85 10*6/uL 4.6-6.2 [facility] Work Phone: Blood hemoglobin measurement (mass/volume)on 01-28-2022 Hemoglobin (Bld) [Mass/Vol] 14.8 g/dL 13.0-16.5 [facility] Work Phone: Blood lymphocytes/100 leukoc yteson 01-28-2022 Lymphocytes/100 WBC (Bld) 10.0 % 19-41 [facility] Work Phone: Blood monocytes/100 leukocyt eson 01-28-2022 Monocytes/100 WBC (Bld) 9.8 % 0-10 [facility] Work Phone: Blood platelet mean volumeon 01-28-2022 Platelet mean volume (Bld) [Entitic vol] 10.8 fL 6.2-12.0 [facility] Work Phone: Determination of erythrocyte mean corpuscular volume (MCV)on 01-28-2022 MCV (RBC) [Entitic vol] 94.0 fL 80-94 [facility] Work Phone: Hematocrit Auto (Bld) [Volum e fraction]on 01-28-2022 Hematocrit (Bld) [Volume fraction] 45.6 % 40-54 [facility] Work Phone: Ketones Test strip Ql (U)on 01-28-2022 Ketones Ql (U) Negative Negative [facility] Work Phone: Laboratory - Chemistry and C hemistry - challengeon 01-28-2022 ALP [Catalytic activity/Vol] 91 U/L 45-117 [facility] Work Phone: [phone] ALT [Catalytic activity/Vol] 26 U/L 16-61 [facility] Work Phone: CK [Catalytic activity/Vol] 78 U/L 39-308 [facility] Work Phone: CO2 [Moles/Vol] 24.0 mmol/L 21.0-32.0 [facility] Work Phone: [phone] Globulin (S) [Mass/Vol] 3.6 g/dL 2.2-4.2 [facility] Work Phone: Urea nitrogen/Creatinine [Mass ratio] 22.2 mg/mg 10-20 [facility] Work Phone: Laboratory - Hematology and Cell countson 01-28-2022 Erythrocyte distribution width (RBC) [Entitic vol] 53.2 fL 35.1-43.9 [facility] Work Phone: Erythrocyte distribution width (RBC) [Ratio] 15.3 % 11.6-14.6 [facility] Work Phone: Immature granulocytes/100 WBC (Bld) 0.500 % 0.0-0.9 [facility] Work Phone: Comment on above: IG% - Immature Granu locytes (promyelocytes, myelocytes and metamyelocytes) > 1% indicates that a LEFT SHIFT is Present. MCH (RBC) [Entitic mass] 30.5 pg 27.0-32.0 [facility] Work Phone: Nucleated RBC/100 WBC (Bld) [Ratio] 0 % 0-5 [facility] Work Phone: MCHC Auto (RBC) [Mass/Vol]on 01-28-2022 MCHC (RBC) [Mass/Vol] 32.5 g/dL 32-36 [facility] Work Phone: Nitrite Test strip Ql (U)on 01-28-2022 Nitrite Ql (U) Negative Negative [facility] Work Phone: No Panel Informationon 01-28 Estimated GFR (MDRD) Amer 97 mL/min >60 [facility] Work Phone: Comment on above: GFR Calc Estimated GFR (MDRD) Non-Af Amer 80 mL/min >60 [facility] Work Phone: Comment on above: Non- GFR Calc Platelets bldon 01-28-2022 Platelets (Bld) [#/Vol] 414 10*3/uL 150-450 [facility] Work Phone: Protein Test strip Ql (U)on 01-28-2022 Protein Ql (U) 15 mg/dl Negative [facility] Work Phone: Serum or plasma albumin naila urement (mass/volume)on 01-28-2022 Albumin [Mass/Vol] 3.8 g/dL 3.2-5.0 [facility] Work Phone: Serum or plasma albumin/glob ulin mass ratioon 01-28-2022 Albumin/Globulin [Mass ratio] 1.1 {ratio} 0.9-2.4 [facility] Work Phone: Serum or plasma calcium naila urement (mass/volume)on 01-28-2022 Calcium [Mass/Vol] 9.4 mg/dL 8.5-10.1 [facility] Work Phone: Serum or plasma creatinine m easurement (mass/volume)on 01-28-2022 Creatinine [Mass/Vol] 0.99 mg/dL 0.70-1.30 [facility] Work Phone: Comment on above: The validity of the calculated GFR & GFRAA in patients over 70 years has not been determined. Clinical correlation is essential. Serum or plasma urea nitroge n measurement (mass/volume)on 01-28-2022 Urea nitrogen [Mass/Vol] 22 mg/dL 7-18 [facility] Work Phone: Thin prep Papanicolaou smear with manual screeningon 01-28-2022 Thin prep Papanicolaou smear with manual screening 22 U/L 15-37 [facility] Work Phone: Thin prep Papanicolaou smear with manual screening 8 5-15 [facility] Work Phone: Urine blood detectionon 01-12 RBC Ql (U) 10 /ul Negative [facility] Work Phone: Urine clarityon 01-28-2022 Clarity (U) Clear Clear [facility] Work Phone: Urine color determinationon 01-28-2022 Color (U) Yellow Yellow [facility] Work Phone: Urine creatinine measurement (mass/volume)on 01-28-2022 Creatinine (U) [Mass/Vol] 184.00 mg/dL NO RANGE EST. [facility] Work Phone: Urine glucose detectionon Glucose Ql (U) Normal mg/dl Normal [facility] Work Phone: Urine leukocyte esterase det ection by dipstickon 01-28-2022 Leukocyte esterase Test strip Ql (U) Negative Negative [facility] Work Phone: Urine pHon 01-28-2022 pH (U) 5.0 [pH] 5.0 - 8.0 [facility] Work Phone: Urine protein measurement (m ass/volume)on 01-28-2022 Protein (U) [Mass/Vol] 31.9 mg/dL 0.0-11.8 [facility] Work Phone: Urine protein/creatinine mas s ratioon 01-28-2022 Protein/Creatinine (U) [Mass ratio] 173 mg/g CRE 0-200 [facility] Work Phone: Urine specific gravity measu rementon 01-28-2022 Specific gravity (U) [Rel density] 1.020 1.002-1.030 [facility] Work Phone: Urobilinogen Auto test strip Ql (U)on 01-28-2022 Urobilinogen Ql (U) Normal mg/dl Normal [facility] Work Phone: CNTHERAPYon 01-17-2022 CNTHERAPY OT/PT/Speech Visit (PTMDRG) JUANITA JAY ([id number]) 1955 M Date Time Provider Department 01/17/22 1:00 PM KAILEY LEBRON Date Time Provider Department [place] 01/17/2022 1:00 PM [id number] LEBRON [facility] Reason for Visit: Physical Therapy [503] PT [...] w-minerals/lut(CENTR UM SILVER TAB) Take one daily [facility] CNTHERAPYon 01-11-2022 CNTHERAPY OT/PT/Speech Visit (PTMDRG) JUANITA JAY ([id number]) 1955 M Date Time Provider Department 01/11/22 8:30 AM KAILEY LEBRON Date Time Provider Department Center 01/11/2022 8:30 AM [id number] LEBRON [facility] Reason for Visit: PT Progress Note [6846] Primary Visit Diagnosis:MS (multiple sclerosis) (HCC) [G35] [...] UM SILVER TAB) Take one daily Normal [facility] XR Shoulder - right 3 Viewso n 12-24-2021 IMPRESSION: No radiographic evidence of acute osseous injury Pattern Cutter: CLARIBEL Transcribe Date/Time: Dec 24 2021 12:02P Dictated by : TIM GOLDSTEIN MD This examination was interpreted and the report reviewed and electronically signed by: TIM GOLDSTEIN MD on Dec 24 2021 12:04PM [facility] DIVISION OF RADIOLOGY * * *Final Report* [...] hypertrophic spur formation. DIVISION OF RADIOLOGY Provider, [facility] [place] - 12/24/2021 * * *Final Report* * [...] No radiographic evidence of acute osseous injury [facility] Trans[facility] Date/Time: Dec 24 2021 12:02P Dictated by : TIM GOLDSTEIN MD This examination was interpreted and the report reviewed and electronically signed by: TIM GOLDSTEIN MD on Dec 24 2021 12:04PM [facility] Radiology Study observation (narrative) Jose rapp [facility] XR Shoulder - right 3 ViewsO rdered By: Ccf Provider on 12-24-2021 [facility] Absolute lymphocyte counton 12-12-2021 Lymphocytes Auto (Unsp spec) [#/Vol] 1.29 10*3/uL 0.83-4.51 [facility] Work Phone: Aldolase ser/plason 12-13-19 22 Aldolase [Catalytic activity/Vol] 2.6 mU/mL 3.3-10.3 [facility] Work Phone: Comment on above: Performed at: [address] [id number] Director: Leo Mcdaniel PhD, Phone: [phone] Basophil percentageon 2021 Basophil percentage 0-5 SEEN /hpf 0-5 [facility] Work Phone: Basophils/100 WBC (Bld) 0.5 % 0-1 [facility] Work Phone: Bilirubin [Mass/Vol] 0.50 mg/dL 0.20-1.00 [facility] Work Phone: Comment on above: For patients on eltr ombopag therapy, use of [place] TBIL is not recommended. Chloride [Moles/Vol] 111 mmol/L 98-107 [facility] Work Phone: Eosinophils/100 WBC (Bld) 1.6 % 0-5 [facility] Work Phone: Glucose [Mass/Vol] 90 mg/dL 74-106 [facility] Work Phone: [phone] Neutrophils (Bld) [#/Vol] 5.6 10*3/uL 2.0-7.7 [facility] Work Phone: Neutrophils/100 WBC (Bld) 68.5 % 47-70 [facility] Work Phone: Potassium [Moles/Vol] 4.0 mmol/L 3.5-5.1 [facility] Work Phone: [phone] Protein [Mass/Vol] 7.2 g/dL 6.4-8.2 [facility] Work Phone: [phone] Sodium [Moles/Vol] 141 mmol/L 136-145 [facility] Work Phone: [phone] WBC (Bld) [#/Vol] 8.2 10*3/uL 4.4-11.0 [facility] Work Phone: [phone] Bilirubin Test strip Ql (U)o n 12-12-2021 Bilirubin Ql (U) Negative Negative [facility] Work Phone: [phone] Blood erythrocytes count (nu mber/volume)on 12-12-2021 RBC (Bld) [#/Vol] 4.86 10*6/uL 4.6-6.2 [facility] Work Phone: [phone] Blood hemoglobin measurement (mass/volume)on 12-12-2021 Hemoglobin (Bld) [Mass/Vol] 14.6 g/dL 13.0-16.5 [facility] Work Phone: Blood lymphocytes/100 leukoc yteson 12-12-2021 Lymphocytes/100 WBC (Bld) 15.7 % 19-41 [facility] Work Phone: Blood monocytes/100 leukocyt eson 12-12-2021 Monocytes/100 WBC (Bld) 13.5 % 0-10 [facility] Work Phone: Blood platelet mean volumeon 12-12-2021 Platelet mean volume (Bld) [Entitic vol] 10.7 fL 6.2-12.0 [facility] Work Phone: Determination of erythrocyte mean corpuscular volume (MCV)on 12-12-2021 MCV (RBC) [Entitic vol] 91.2 fL 80-94 [facility] Work Phone: Erythrocyte sedimentation ra abhijit 12-12-2021 ESR (Bld) [Velocity] 9 mm/h 0-20 [facility] Work Phone: Hematocrit Auto (Bld) [Volum e fraction]on 12-12-2021 Hematocrit (Bld) [Volume fraction] 44.3 % 40-54 [facility] Work Phone: Ketones Test strip Ql (U)on 12-12-2021 Ketones Ql (U) Negative Negative [facility] Work Phone: Laboratory - Chemistry and C hemistry - challengeon 12-12-2021 ALP [Catalytic activity/Vol] 87 U/L 45-117 [facility] Work Phone: ALT [Catalytic activity/Vol] 16 U/L 16-61 [facility] Work Phone: CK [Catalytic activity/Vol] 64 U/L 39-308 [facility] Work Phone: CO2 [Moles/Vol] 25.0 mmol/L 21.0-32.0 [facility] Work Phone: Globulin (S) [Mass/Vol] 3.4 g/dL 2.2-4.2 [facility] Work Phone: Urea nitrogen/Creatinine [Mass ratio] 23.4 mg/mg 10-20 [facility] Work Phone: Laboratory - Hematology and Cell countson 12-12-2021 Erythrocyte distribution width (RBC) [Entitic vol] 59.0 fL 35.1-43.9 [facility] Work Phone: Erythrocyte distribution width (RBC) [Ratio] 17.5 % 11.6-14.6 [facility] Work Phone: Immature granulocytes/100 WBC (Bld) 0.200 % 0.0-0.9 [facility] Work Phone: Comment on above: IG% - Immature Granu locytes (promyelocytes, myelocytes and metamyelocytes) > 1% indicates that a LEFT SHIFT is Present. MCH (RBC) [Entitic mass] 30.0 pg 27.0-32.0 [facility] Work Phone: Nucleated RBC/100 WBC (Bld) [Ratio] 0 % 0-5 [facility] Work Phone: MCHC Auto (RBC) [Mass/Vol]on 12-12-2021 MCHC (RBC) [Mass/Vol] 33.0 g/dL 32-36 [facility] Work Phone: Mucus LM Ql (Urine sed)on Mucus Ql (Urine sed) 3+ /hpf [facility] Work Phone: Nitrite Test strip Ql (U)on 12-12-2021 Nitrite Ql (U) Negative Negative [facility] Work Phone: No Panel Informationon 12-12 Estimated GFR (MDRD) Amer 98 mL/min >60 [facility] Work Phone: Comment on above: GFR Calc Estimated GFR (MDRD) Non-Af Amer 81 mL/min >60 [facility] Work Phone: Comment on above: Non- GFR Calc Platelets bldon 12-12-2021 Platelets (Bld) [#/Vol] 351 10*3/uL 150-450 [facility] Work Phone: Protein Test strip Ql (U)on 12-12-2021 Protein Ql (U) 15 mg/dl Negative [facility] Work Phone: Serum DNA double strand anti body assay (units/volume)on 12-12-2021 DNA double strand Ab Qn (S) 1 [IU]/mL 0-9 [facility] Work Phone: Comment on above: Negative <5 Equivoca l 5 - 9 Positive >9 Serum nuclear antibody titer by immunofluorescenceon 12-12-2021 Nuclear Ab IF (S) [Titer] Negative . [facility] Work Phone: Comment on above: Negative <1:80 Borde rline 1:80 Positive >1:80ICAP nomenclature: AC-0For more information about Hep-2 cell patterns useANApatterns.org, the official website for theInternational Consensus on Antinuclear Antibody (JOSE)Patterns (ICAP).Performed at: [employer] [id number] Director: Leo Mcdaniel PhD, Phone: [phone] Serum or plasma albumin naila urement (mass/volume)on 12-12-2021 Albumin [Mass/Vol] 3.8 g/dL 3.2-5.0 [facility] Work Phone: Serum or plasma albumin/glob ulin mass ratioon 12-12-2021 Albumin/Globulin [Mass ratio] 1.1 {ratio} 0.9-2.4 [facility] Work Phone: Serum or plasma calcium naila urement (mass/volume)on 12-12-2021 Calcium [Mass/Vol] 9.1 mg/dL 8.5-10.1 [facility] Work Phone: Serum or plasma creatinine m easurement (mass/volume)on 12-12-2021 Creatinine [Mass/Vol] 0.98 mg/dL 0.70-1.30 [facility] Work Phone: Comment on above: The validity of the calculated GFR & GFRAA in patients over 70 years has not been determined. Clinical correlation is essential. Serum or plasma urea nitroge n measurement (mass/volume)on 12-12-2021 Urea nitrogen [Mass/Vol] 23 mg/dL 7-18 [facility] Work Phone: Squamous epithelial cells de tection in urine sediment by light microscopyon 12-12-2021 Epithelial cells.squamous LM Ql (Urine sed) 0-5 SEEN /hpf 0-5 [facility] Work Phone: Thin prep Papanicolaou smear with manual screeningon 12-12-2021 Thin prep Papanicolaou smear with manual screening 13 U/L 15-37 [facility] Work Phone: Thin prep Papanicolaou smear with manual screening 5 5-15 [facility] Work Phone: Urine blood detectionon 08- RBC Ql (U) 10 /ul Negative [facility] Work Phone: RBC Ql (U) 0 SEEN /hpf 0-5 [facility] Work Phone: Urine clarityon 12-12-2021 Clarity (U) Clear Clear [facility] Work Phone: Urine color determinationon 12-12-2021 Color (U) Yellow Yellow [facility] Work Phone: Urine glucose detectionon Glucose Ql (U) Normal mg/dl Normal [facility] Work Phone: Urine leukocyte esterase det ection by dipstickon 12-12-2021 Leukocyte esterase Test strip Ql (U) Negative Negative [facility] Work Phone: Urine pHon 12-12-2021 pH (U) 6.0 [pH] 5.0 - 8.0 [facility] Work Phone: Urine sediment bacteria coun t by microscopy (number/high power field)on 12-12-2021 Bacteria LM.HPF (Urine sed) [#/Area] 0 /[HPF] None Seen [facility] Work Phone: Urine specific gravity measu rementon 12-12-2021 Specific gravity (U) [Rel density] 1.020 1.002-1.030 [facility] Work Phone: Urobilinogen Auto test strip Ql (U)on 12-12-2021 Urobilinogen Ql (U) Normal mg/dl Normal [facility] Work Phone: CNTHERAPYon 11-01-2021 CNTHERAPY OT/PT/Speech Visit (PTMDRG) JUANITA JAY ([id number]) 1955 M Date Time Provider Department 11/01/21 7:45 AM KAILEY LEBRON Date Time Provider Department Center 11/01/2021 7:45 AM [id number] LEBRON [facility] Reason for Visit: Physical Therapy [503] Visit [...] w-minerals/lut(CENTR UM SILVER TAB) Take one daily [facility] CNTHERAPYon 10-24-2021 CNTHERAPY OT/PT/Speech Visit (PTMDRG) JUANITA JAY ([id number]) 1955 M Date Time Provider Department 10/24/21 10:00 AM KAILEY LEBRON Date Time Provider Department Center 10/24/2021 10:00 AM [id number] LEBRON [facility] Reason for Visit: PT Progress Note [1596] Visit Diagnoses:Leg weakness, bilateral [R29.898] Imbalance [R26.89] Abnormality of gait [R26.9] MS (multiple sclerosis) ([facility]) [G35] Allergies As of Date: 10/24/2021 Noted [...] w-minerals/lut(CENTR UM SILVER TAB) Take one daily [facility] CNTHERAPYon 10-11-2021 CNTHERAPY OT/PT/Speech Visit (PTMG) JUANITA JAY ([id number]) 1955 M Date Time Provider Department 10/11/21 10:45 AM KAILEY LEBRON Date Time Provider Department Center 10/11/2021 10:45 AM [id number] LEBRON [facility] Reason for Visit: Physical Therapy [503] Visit Diagnoses:Leg weakness, bilateral [R29.898] Imbalance [R26.89] Abnormality of gait [R26.9] MS (multiple sclerosis) ([facility]) [G35] Allergies As of Date: 10/11/2021 Noted [...] w-minerals/lut(CENTR UM SILVER TAB) Take one daily [facility] CNTHERAPYon 10-10-2021 CNTHERAPY OT/PT/Speech Visit (PTMDRG) JUANITA JAY ([id number]) 1955 M Date Time Provider Department 10/10/21 10:45 AM KAILEY LEBRON Date Time Provider Department Center 10/10/2021 10:45 AM [id number] LEBRON [facility] Reason for Visit: Physical Therapy [503] Visit Diagnoses:Leg weakness, bilateral [R29.898] Imbalance [R26.89] Abnormality of gait [R26.9] MS (multiple sclerosis) ([facility]) [G35] Allergies As of Date: 10/10/2021 Noted [...] UM SILVER TAB) Take one daily Normal [facility] CNTHERAPYon 09-20-2021 CNTHERAPY OT/PT/Speech Visit (PTMDRG) JUANITA JAY ([id number]) 1955 M Date Time Provider Department 09/20/21 10:45 AM KAILEY LEBRON Date Time Provider Department Center 09/20/2021 10:45 AM [id number] LEBRON [facility] Reason for Visit: Physical Therapy [503] Visit Diagnoses:Leg weakness, bilateral [R29.898] Imbalance [R26.89] Abnormality of gait [R26.9] MS (multiple sclerosis) ([facility]) [G35] Allergies As of Date: 09/20/2021 Noted [...] UM SILVER TAB) Take one daily Normal [facility] CNTHERAPYon 09-18-2021 CNTHERAPY OT/PT/Speech Visit (PTMDRG) JUANITA JAY ([id number]) 1955 M Date Time Provider Department 09/18/21 10:45 AM KAILEY LEBRON Date Time Provider Department Center 09/18/2021 10:45 AM [id number] LEBRON [facility] Reason for Visit: PT Progress Note [1596] Visit Diagnoses:Leg weakness, bilateral [R29.898] Imbalance [R26.89] Abnormality of gait [R26.9] MS (multiple sclerosis) ([facility]) [G35] Allergies As of Date: 09/18/2021 Noted [...] w-minerals/lut(CENTR UM SILVER TAB) Take one daily [facility] CNTHERAPYon 09-06-2021 CNTHERAPY OT/PT/Speech Visit (PTMDRG) JUANITA JAY ([id number]) 1955 M Date Time Provider Department 09/06/21 10:00 AM KAILEY LEBRON Date Time Provider Department Center 09/06/2021 10:00 AM [id number] LEBRON [facility] Reason for Visit: Physical Therapy [503] Visit Diagnoses:Leg weakness, bilateral [R29.898] Imbalance [R26.89] Abnormality of gait [R26.9] MS (multiple sclerosis) ([facility]) [G35] Allergies As of Date: 09/06/2021 Noted [...] w-minerals/lut(CENTR UM SILVER TAB) Take one daily [facility] CNTHERAPYon 08-15-2021 CNTHERAPY OT/PT/Speech Visit (PTMDRG) JUANITA JAY ([id number]) 1955 M Date Time Provider Department 08/15/21 12:30 PM KAILEY LEBRON Date Time Provider Department Center 08/15/2021 12:30 PM [id number] LEBRON [facility] Reason for Visit: PT Eval [747] Patient [...] TAB) Take one daily Letter Text Normal [facility] BRAIN & CERVICAL SPINE MRI D [facility] DATAon 07-23-2021 Brain Enhancing Lesions None C [facility] Brain Interval Improvement None [facility] Brain New T2 Lesions None Site [facility] Brain Other Significant MRI Findings None. [facility] Brain Parenchymal Volume Loss Moderate [facility] Brain T2 [place] of Disease Moderate [facility] MRI BRAIN WO/W IVCONon 07-23 [facility] XR Elbow - left AP and Later al and obliqueon 10-13-2020 IMPRESSION: No acute osseous abnormality identified. Soft tissue swelling in the region of the olecranon bursa which may be posttraumatic or infectious in etiology. Pattern Cutter: CLARIBEL Transcribe Date/Time: Oct 13 2020 8:24A Dictated by : BUSHRA FRANKEL MD This examination was interpreted and the report reviewed and electronically signed by: BUSHRA FRANKEL MD on Oct 13 2020 8:35AM [facility] DIVISION OF RADIOLOGY * * *Final Report* [...] the olecranon bursa. DIVISION OF RADIOLOGY Provider, [facility] [place] - 10/13/2020 * * *Final Report* * [...] may be posttraumatic or infectious in etiology. Pattern Cutter: CLARIBEL Transcribe Date/Time: Oct 13 2020 8:24A Dictated by : BUSHRA FRANKEL MD This examination was interpreted and the report reviewed and electronically signed by: BUSHRA FRANKEL MD on Oct 13 2020 8:35AM EST [facility] Radiology Study observation (narrative) [facility] Elbow - left AP and Later al and obliqueOrdered By: [facility] Provider on 10-13-2020 [facility] Vital Signs Date Time Vital Sign Value Performing Clinician Facility 11-10-2024 13:29-0400 Body height 182.9 cm Laverne Monroe MD Work Phone: [facility] 11-10-2024 13:29-0400 Body mass index (BMI) [Ratio] 23.46 kg/m2 Laverne Monroe MD Work Phone: [facility] 11-10-2024 13:29-0400 Body weight 78.47 kg Laverne Monroe MD Work Phone: [facility] 11-10-2024 13:29-0400 Diastolic blood pressure 68 mm[Hg] Laverne Monroe MD Work Phone: [facility] 11-10-2024 13:29-0400 Heart rate 62 /min Laverne Monroe MD Work Phone: [facility] 11-10-2024 13:29-0400 SaO2% (BldA) [Mass fraction] 98 % Laverne Monroe MD Work Phone: [facility] 11-10-2024 13:29-0400 Systolic blood pressure 111 mm[Hg] Laverne Monroe MD Work Phone: [facility] 08-19-2024 10:53-0400 Body height 182.9 cm Tello Slaughter PA-C Work Phone: [facility] 08-19-2024 10:53-0400 Body mass index (BMI) [Ratio] 23.46 kg/m2 Tello Young PA-C Work Phone: [facility] 08-19-2024 10:53-0400 Body weight 78.47 kg Tello Young PA-C Work Phone: [facility] 08-19-2024 10:53-0400 Diastolic blood pressure 63 mm[Hg] Tello Young PA-C Work Phone: [facility] 08-19-2024 10:53-0400 Heart rate 90 /min Tello Young PA-C Work Phone: [facility] 08-19-2024 10:53-0400 Systolic blood pressure 117 mm[Hg] Tello Young PA-C Work Phone: [facility] 04-14-2024 00:09-0500 Body weight 80.[address] Wisam Monroe MD Work Phone: [facility] 04-06-2024 10:22-0500 Body height 182.[address] Wisam Monroe MD Work Phone: [facility] 04-06-2024 10:22-0500 Body weight 81.[address] Wisam Monroe MD Work Phone: [facility] 02-05-2024 10:52-0400 Body height 182.9 cm Tello Young PA-C Work Phone: [facility] 02-05-2024 10:52-0400 Body mass index (BMI) [Ratio] 24.14 kg/m2 Tello Young PA-C Work Phone: [facility] 02-05-2024 10:52-0400 Body weight 80.74 kg Tello Young PA-C Work Phone: [facility] 02-05-2024 10:52-0400 Diastolic blood pressure 57 mm[Hg] Tello Young PA-C Work Phone: [facility] 02-05-2024 10:52-0400 Heart rate 54 /min Tello Slaughter PA-C Work Phone: [facility] 02-05-2024 10:52-0400 Systolic blood pressure 111 mm[Hg] Tello BARRETT-Edgard Work Phone: [facility] 12-01-2023 11:40-0400 Heart rate 67 /min JORDAN HENRY MD [facility] 12-01-2023 11:01-0400 Body temperature 98.06 [degF] JORDAN HENRY MD [address] [place] [address] 12-01-2023 11:01-0400 Diastolic Blood Pressure Non-Invasive 64 mm[Hg] JORDAN HENRY MD [facility] 12-01-2023 11:01-0400 Heart rate 70 /min JORDAN HENRY MD [facility] 12-01-2023 11:01-0400 Mean blood pressure 78 mm[Hg] JORDAN HENRY MD [address] [place] [address] 12-01-2023 11:01-0400 Reason For Taking VItal Signs JORDAN HENRY MD [facility] 12-01-2023 11:01-0400 Respiratory rate 18 /min JORDAN HENRY MD [facility] 12-01-2023 11:01-0400 Systolic Blood Pressure Non-Invasive 111 mm[Hg] JORDAN HENRY MD [facility] 12-01-2023 08:20-0400 Reason For Taking VItal Signs JORDAN HENRY MD [facility] 12-01-2023 07:53-0400 Heart rate 77 /min JORDAN HENRY MD [facility] 12-01-2023 06:46-0400 Body temperature 98.06 [degF] JORDAN HENRY MD [facility] 12-01-2023 06:46-0400 Diastolic Blood Pressure Non-Invasive 79 mm[Hg] JORDAN HENRY MD [facility] 12-01-2023 06:46-0400 Mean blood pressure 91 mm[Hg] JORDAN HENRY MD [facility] 12-01-2023 06:46-0400 Reason For Taking VItal Signs JORDAN HENRY MD [address] [place] [address] 12-01-2023 06:46-0400 Respiratory rate 18 /min JORDAN HENRY MD [address] [place] [address] 12-01-2023 06:46-0400 Systolic Blood Pressure Non-Invasive 118 mm[Hg] JORDAN HENRY MD [address] [place] [address] 12-01-2023 02:58-0400 Body temperature 98.24 [degF] JORDAN HENRY MD [address] [place] [address] 12-01-2023 02:58-0400 Diastolic Blood Pressure Non-Invasive 77 mm[Hg] JORADN HENRY MD [address] [place] [address] 12-01-2023 02:58-0400 Mean blood pressure 88 mm[Hg] JORDAN HENRY MD [address] [place] [address] 12-01-2023 02:58-0400 Respiratory rate 18 /min JORDAN HENRY MD [address] [place] [address] 12-01-2023 02:58-0400 Systolic Blood Pressure Non-Invasive 119 mm[Hg] JORDAN HENRY MD [address] [place] [address] 11-30-2023 15:48-0400 Heart rate 68 /min JORDAN HENRY MD [address] [place] [address] 11-30-2023 14:59-0400 Blood Pressure Cuff Size JORDAN HENRY MD [address] [place] [address] 11-30-2023 14:59-0400 Blood Pressure Location JORDAN HENRY MD [address] [place] [address] 11-30-2023 14:59-0400 Blood Pressure Method JORDAN HENRY MD [facility] 11-30-2023 11:14-0400 Blood Pressure Cuff Size JORDAN HENRY MD [facility] 11-30-2023 11:14-0400 Blood Pressure Location JORDAN HENRY MD [facility] 11-30-2023 11:14-0400 Blood Pressure Method JORDAN HENRY MD [address] [place] [address] 11-30-2023 07:47-0400 Heart rate 93 /min JORDAN HENRY MD [address] [place] [address] 11-30-2023 04:06-0400 Body weight 86.5 kg JORDAN HENRY MD [address] [place] [address] 11-29-2023 22:19-0400 Blood Pressure Cuff Size JORDAN HENRY MD [address] [place] [address] 11-29-2023 22:19-0400 Blood Pressure Location JORDAN HENRY MD [facility] 11-29-2023 22:19-0400 Blood Pressure Method JORDAN HENRY MD [facility] 11-29-2023 14:00-0400 Diastolic blood pressure 60 mm[Hg] JORDAN HENRY MD [facility] 11-29-2023 14:00-0400 Mean blood pressure 82 mm[Hg] JORDAN HENRY MD [facility] 11-29-2023 14:00-0400 Systolic blood pressure 120 mm[Hg] JORDAN HENRY MD [facility] 11-29-2023 13:20-0400 Diastolic blood pressure 53 mm[Hg] JORDAN HENRY MD [facility] 11-29-2023 13:20-0400 Mean blood pressure 73 mm[Hg] JORDAN HENRY MD [address] [place] [address] 11-29-2023 13:20-0400 Systolic blood pressure 108 mm[Hg] JORDAN HENRY MD [address] [place] [address] 11-29-2023 12:02-0400 Diastolic blood pressure 53 mm[Hg] JORDAN HENRY MD [address] [place] [address] 11-29-2023 12:02-0400 Mean blood pressure 69 mm[Hg] JORDAN HENRY MD [address] [place] [address] 11-29-2023 12:02-0400 Systolic blood pressure 95 mm[Hg] JORDAN HENRY MD [address] [place] [address] 11-28-2023 08:33-0400 Diastolic blood pressure 53 mm[Hg] JORDAN HENRY MD [address] [place] [address] 11-28-2023 08:33-0400 Heart rate 109 /min JORDAN HENRY MD [address] [place] [address] 11-28-2023 08:33-0400 Systolic blood pressure 100 mm[Hg] JORDAN HENRY MD [address] [place] [address] 11-28-2023 07:33-0400 Diastolic blood pressure 54 mm[Hg] JORDAN HENRY MD [address] [place] [address] 11-28-2023 07:33-0400 Heart rate 112 /min JORDAN HENRY MD [address] [place] [address] 11-28-2023 07:33-0400 Systolic blood pressure 109 mm[Hg] JORDAN HENRY MD [address] [place] [address] 11-28-2023 07:31-0400 Signs/Symptoms Transfusion Reaction No JORDAN HENRY MD [address] [place] [address] 11-28-2023 07:06-0400 Signs/Symptoms Transfusion Reaction JORDAN HENRY MD [address] [place] [address] 11-28-2023 06:36-0400 Signs/Symptoms Transfusion Reaction JORDAN HENRY MD [address] [place] [address] 11-28-2023 06:06-0400 Diastolic blood pressure 76 mm[Hg] JORDAN HENRY MD [facility] 11-28-2023 06:06-0400 Heart rate 109 /min JORDAN HENRY MD [facility] 11-28-2023 06:06-0400 Systolic blood pressure 117 mm[Hg] JORDAN HENRY MD [facility] 11-28-2023 05:45-0400 Inspected Blood Donor Unit Appearance JORDAN HENRY MD [facility] 11-28-2023 05:45-0400 Transfusion Documentation Started/Paper JORDAN HENRY MD [facility] 11-27-2023 03:48-0400 SaO2% (BldA) [Mass fraction] 99.5 % JORDAN HENRY MD [facility] 11-26-2023 19:35-0400 SaO2% (BldA) [Mass fraction] 98.1 % JORDAN HENRY MD [facility] 11-26-2023 16:38-0400 SaO2% (BldA) [Mass fraction] 98.7 % JORDAN HENRY MD [facility] 11-26-2023 12:20-0400 Respiratory Rate - Anes 12 br/min JORDAN HENRY MD [facility] 11-26-2023 12:15-0400 Body temperature 97.88 [degF] JORDAN HENRY MD [facility] 11-26-2023 12:15-0400 Body temperature 97.21 [degF] JORDAN HENRY MD [facility] 11-26-2023 12:15-0400 Respiratory Rate - Anes 12 br/min JORDAN HENRY MD [facility] 11-26-2023 12:10-0400 Body temperature 97.86 [degF] JORDAN HENRY MD [facility] 11-26-2023 12:10-0400 Body temperature 97.16 [degF] JORDAN HENRY MD [facility] 11-26-2023 12:10-0400 Respiratory Rate - Anes 12 br/min JORDAN HENRY MD [facility] 11-26-2023 12:05-0400 Body temperature 97.84 [degF] JORDAN HENRY MD [facility] 11-26-2023 12:05-0400 Body temperature 97.14 [degF] JORDAN HENRY MD [facility] 11-24-2023 17:48-0400 Body height 183 cm JORDAN HENRY MD [facility] 11-24-2023 17:48-0400 Body weight 83.8 kg JORDAN HENRY MD [facility] 11-24-2023 17:48-0400 Body weight 25.02 kg/m2 JORDAN HENRY MD [facility] 07-04-2023 10:39-0400 Body height 182.9 cm Autumn Florian PA-C Work Phone: [facility] 07-04-2023 10:39-0400 Body weight 90.72 kg Autumn Florian PA-C Work Phone: [facility] 07-04-2023 10:39-0400 Diastolic blood pressure 59 mm[Hg] Autumn Florian PA-C Work Phone: [facility] 07-04-2023 10:39-0400 Heart rate 72 /min Autumn Florian PA-C Work Phone: [facility] 07-04-2023 10:39-0400 Respiratory rate 18 /min Autumn Florian PA-C Work Phone: [facility] 07-04-2023 10:39-0400 SaO2% (BldA) [Mass fraction] 97 % Autumn Florian PA-C Work Phone: [facility] 07-04-2023 10:39-0400 Systolic blood pressure 114 mm[Hg] Autumn Florian PA-C Work Phone: [facility] 02-15-2023 15:35-0400 Body height 182.9 cm Khoa Goldberg MD Work Phone: [facility] 02-15-2023 15:35-0400 Body mass index (BMI) [Ratio] 27.12 kg/m2 Khoa Goldberg MD Work Phone: [facility] 02-15-2023 15:35-0400 Body temperature 98.1 [degF] Khoa Goldberg MD Work Phone: [facility] 02-15-2023 15:35-0400 Body weight 90.72 kg Khoa Goldberg MD Work Phone: [facility] 02-15-2023 15:35-0400 Diastolic blood pressure 88 mm[Hg] Khoa Goldberg MD Work Phone: [facility] 02-15-2023 15:35-0400 Heart rate 96 /min Khoa Goldberg MD Work Phone: [facility] 02-15-2023 15:35-0400 Respiratory rate 18 /min Khoa Goldberg MD Work Phone: [facility] 02-15-2023 15:35-0400 SaO2% (BldA) [Mass fraction] 97 % Khoa Goldberg MD Work Phone: [facility] 02-15-2023 15:35-0400 Systolic blood pressure 148 mm[Hg] Khoa Goldberg MD Work Phone: [facility] 07-09-2022 13:47-0400 Body height 182.9 cm Tello BARRETT-C Work Phone: [facility] 07-09-2022 13:47-0400 Body weight 90.72 kg Tello BARRETT-C Work Phone: [facility] 07-09-2022 13:47-0400 Diastolic blood pressure 54 mm[Hg] Tello Young PA-C Work Phone: [facility] 07-09-2022 13:47-0400 Heart rate 76 /min Tello Young PA-C Work Phone: [facility] 07-09-2022 13:47-0400 Systolic blood pressure 140 mm[Hg] Tello Young PA-C Work Phone: [facility] 04-03-2022 15:37-0500 Body height 182.9 cm Raymon Simon MD, PhD Work Phone: [facility] 04-03-2022 15:37-0500 Body weight 89.36 kg Raymon Simon MD, PhD Work Phone: [facility] 04-03-2022 15:37-0500 Diastolic blood pressure 74 mm[Hg] Raymon Simon MD, PhD Work Phone: [facility] 04-03-2022 15:37-0500 Heart rate 80 /min Raymon Simon MD, PhD Work Phone: [facility] 04-03-2022 15:37-0500 SaO2% (BldA) [Mass fraction] 98 % Raymon Simon MD, PhD Work Phone: [facility] 04-03-2022 15:37-0500 Systolic blood pressure 137 mm[Hg] Raymon Simon MD, PhD Work Phone: [facility] 01-08-2022 13:01-0400 Body height 182.9 cm Tello Young PA-C Work Phone: [facility] 01-08-2022 13:01-0400 Body weight 89.36 kg Tello Young PA-C Work Phone: [facility] 01-08-2022 13:01-0400 Diastolic blood pressure 86 mm[Hg] Tello Young PA-C Work Phone: [facility] 01-08-2022 13:01-0400 Heart rate 82 /min Tello Young PA-C Work Phone: [facility] 01-08-2022 13:01-0400 Systolic blood pressure 143 mm[Hg] Tello Young PA-C Work Phone: [facility] 11-02-2021 09:36-0400 Body temperature 98.6 [degF] Dianne Athy PA-C Work Phone: [facility] 11-02-2021 09:36-0400 Diastolic blood pressure 68 mm[Hg] Dianne Athy PA-C Work Phone: [facility] 11-02-2021 09:36-0400 Heart rate 70 /min Dianne Athy PA-C Work Phone: [facility] 11-02-2021 09:36-0400 Respiratory rate 18 /min Dianne Athy PA-C Work Phone: [facility] 11-02-2021 09:36-0400 SaO2% (BldA) [Mass fraction] 98 % Dianne Athy PA-C Work Phone: [facility] 11-02-2021 09:36-0400 Systolic blood pressure 118 mm[Hg] Dianne Athy PA-C Work Phone: [facility] Encounters Encounter Date Encounter Type Care Provider Facility Start: 12-01-2024 End: 12-01-2024 Telephone encounter Laverne Monroe MD Work Phone: [facility] Start: 11-10-2024 End: 11-10-2024 ambulatory LAVERNE MONROE Facility:[facility] Start: 11-10-2024 End: 11-10-2024 Patient encounter procedure Laverne Monroe MD Work Phone: [facility] Comment on above: Medicare annual well ness visit, initial (Primary Dx); Seizure (HCC); MS (multiple sclerosis) (HCC); Balance problem; Coronary artery disease involving [place] coronary artery of [place] heart with angina pectoris; S/P CABG x 2; Acute gastric ulcer with hemorrhage; Anemia, blood loss; Screening for colon cancer; Screening for prostate cancer; Encounter for immunization; Screening for abdominal aortic aneurysm Start: 10-13-2024 End: 10-13-2024 Patient encounter procedure Gael Villarreal APRN.SPORTS MANAGER Work Phone: [facility] Start: 10-13-2024 End: 10-14-2024 Refill Gael Bakerlexie OLIVER.SPORTS MANAGER Work Phone: [facility] Comment on above: Refill Request Start: 09-30-2024 End: 09-30-2024 ambulatory Wilma Reyeslabrosario CONWAY [facility] Start: 09-30-2024 End: 09-30-2024 Patient encounter procedure Wilma Castillo Aleja CONWAY [facility] Comment on above: Population Health Na vigation Outreach ([facility] ) Start: 09-08-2024 End: 09-08-2024 ambulatory Wilma Castillo Aleja ZORAIDA [facility] Start: 09-08-2024 End: 09-08-2024 Patient encounter procedure Wilma Castillo Aleja CONWAY [facility] Comment on above: Population Health Na vigation Outreach ([facility]/) Start: 08-19-2024 End: 10-19-2024 Follow-up encounter Tello Slaughter PA-C Work Phone: [facility] Start: 08-19-2024 End: 08-19-2024 Patient encounter procedure Lab Neur [facility] Comment on above: Multiple sclerosis ( HCC); Vitamin D deficiency Start: 08-19-2024 End: 08-19-2024 Patient encounter procedure Tello Slaughter PA-C Work Phone: [facility] Comment on above: Multiple sclerosis ( HCC) (Primary Dx); Vitamin D deficiency; Imbalance Start: 08-19-2024 End: 08-19-2024 ambulatory Izzy Mendoza Research Coordinator [facility] for MS Start: 08-03-2024 End: 08-03-2024 ambulatory Wisam Monroe [facility] Start: 07-29-2024 End: 07-29-2024 Telephone encounter Laverne Monroe MD Work Phone: [facility] Comment on above: Received Outside Med ical Records ([facility] lab) Start: 07-27-2024 End: 07-27-[address] Wisam Monroe MD Work Phone: [facility] Work Phone: Start: 07-27-2024 End: 07-27-2024 Patient encounter procedure Zeferino Lizarraga VENDING TECHNICIAN-C -Laboratory Work Phone: Start: 07-27-2024 End: 07-27-2024 ambulatory Zeferino Lizarraga VENDING TECHNICIAN Facility:[facility] Start: 07-17-2024 End: 07-19-2024 Patient encounter procedure Tello Slaughter PA-C Work Phone: [facility] Start: 07-17-2024 End: 07-19-2024 Refill Tello Slaughter PA-C Work Phone: [facility] Comment on above: Refill Request Start: 07-07-2024 End: 07-07-2024 ambulatory Wilma Jasso MA [facility] Start: 07-07-2024 End: 07-07-2024 Patient encounter procedure Wilma Jasso MA [facility] Comment on above: Population Health Na vigation Outreach ([facility]) Start: 06-02-2024 End: 06-02-2024 ambulatory Wilma Jasso MA [facility] Start: 06-02-2024 End: 06-02-2024 Patient encounter procedure Wilma Jasso MA [facility] Comment on above: Population Health Na vigation Outreach ([facility]) Start: 05-25-2024 [facility] Start: 05-03-2024 End: 05-03-2024 Telephone encounter Wilma Jasso MA [facility] Start: 2024 End: 05-14-2024 ambulatory Wisam Koncandace Facility:[facility] Start: 2024 End: 05-14-[address] Shravan Bernal MD -Cardiac Rehab Work Phone: Start: 04-22-2024 End: 04-22-2024 Refill Tello Slaughter PA-C Work Phone: [facility] Comment on above: Refill Request Start: 04-21-2024 End: 04-21-2024 Patient encounter procedure Tello Slaughter PA-C Work Phone: [facility] Start: 04-21-2024 End: 04-21-2024 Refill Tello Slaughter PA-C Work Phone: [facility] Comment on above: Refill Request Start: 04-12-2024 End: 04-13-2024 ambulatory Wisam Monroe Facility:[facility] Start: 04-12-2024 End: 04-13-[address] Shravan Bernal MD -Cardiac Rehab Work Phone: Start: 04-05-2024 End: 04-05-2024 Telephone encounter Laverne Monroe MD Work Phone: [facility] Comment on above: Received Outside Med ical Records ([facility] Visit summary 04/01/2024 hospital f/u) Start: 04-01-2024 End: 04-01-2024 Telephone encounter Laverne Monroe MD Work Phone: [facility] Comment on above: Outside Labs Results ([facility]) Start: 04-01-2024 End: 04-01-2024 ambulatory Zeferino Lizarraga VENDING TECHNICIAN Facility:[facility] Start: 03-24-2024 End: 03-24-2024 ambulatory Zeferino H Elham VENDING TECHNICIAN Facility:[facility] Start: 03-08-2024 End: 03-13-2024 ambulatory Wisam Monroe Facility:[facility] Start: 02-12-2024 End: 02-19-2024 Chart abstracting Tello Slaughter PA-C Work Phone: [facility] Comment on above: Medication Preauthor ization (Dimethyl Fumarate 240 mg.) Start: 02-11-2024 End: 02-12-2024 ambulatory Wisam Monroe Facility:[facility] Start: 02-06-2024 End: 02-06-2024 ambulatory TELLO SLAUGHTER Facility:[facility] Start: 02-05-2024 End: 02-05-2024 ambulatory TELLO SLAUGHTER Facility:[facility] Start: 02-05-2024 End: 02-05-2024 Patient encounter procedure Tlelo Slaughter PA-C Work Phone: [facility] Comment on above: Multiple sclerosis ( HCC) (Primary Dx); Vitamin D deficiency Start: 01-29-2024 Encounter for genera l adult medical examination without abnormal findings [facility] Start: 01-23-2024 End: 01-23-2024 Refill Tello Slaughter PA-C Work Phone: [facility] Comment on above: Refill Request Start: 01-18-2024 End: 01-19-2024 Patient encounter procedure Tello Slaughter PA-C Work Phone: [facility] Start: 01-18-2024 End: 01-19-2024 Refill Tello Slaughter PA-C Work Phone: [facility] Comment on above: Refill Request Start: 01-14-2024 End: 01-14-2024 Telephone encounter Laverne Monroe MD Work Phone: [facility] Comment on above: Received Outside Med ical Records ([facility]) Start: 01-13-2024 ambulatory Koby Briones cility:[facility] Start: 01-09-2024 End: 01-09-2024 ambulatory [facility] Facility:[facility] Start: 01-07-2024 End: 01-07-2024 ambulatory Morelia Jensen NP Facility[facility] Start: 01-06-2024 End: 01-06-2024 Telephone encounter Laverne Monroe MD Work Phone: [facility] Comment on above: Received Outside Med ical Records ([facility]) Start: 01-06-2024 End: 01-06-2024 Patient encounter procedure DEENA ENNIS JOURNEYMAN LEVEL ACOUSTIC ANALYST-SPORTS MANAGER [facility] Start: 01-06-2024 End: 01-06-2024 ambulatory LAVERNE MONROE MD Facility:[facility] Start: 01-05-2024 End: 01-05-2024 Telephone encounter Laverne Monroe MD Work Phone: [facility] Comment on above: Received Outside Med ical Records ([facility] 01/02/24) Start: 01-02-2024 End: 01-02-2024 ambulatory Zeferino Andrew Elham VENDING TECHNICIAN Facility:[facility] Start: 12-30-2023 ambulatory Efewongbe Oleghe OLS Fa cility:[facility] Start: 12-23-2023 ambulatory Efewongbe Oleghe OLS Fa cility:[facility] Start: 12-16-2023 ambulatory Efewongbe Oleghe OLS Fa cility:[facility] Start: 12-10-2023 End: 12-10-2023 Telephone encounter Laverne Monroe MD Work Phone: [facility] Comment on above: Received Outside Med ical Records ([facility] Operative note 11/24/2023 OPCAB X2 ) Start: 12-09-2023 ambulatory Efewongbe Oleghe OLS Fa cility:[facility] Start: 12-05-2023 ambulatory Efewongbe Oleghe OLS Fa cility:[facility] Start: 12-04-2023 End: 12-04-2023 ambulatory Morelia Jensen VENDING TECHNICIAN Facility:[facility] Start: 12-04-2023 End: 12-04-2023 Telephone encounter Laverne Monroe MD Work Phone: [facility] Comment on above: Outside [id number] Ordered ([facility] blood type) Start: 12-04-2023 ambulatory Morelia Jensen VENDING TECHNICIAN Faci lity:[facility] Start: 12-03-2023 End: 12-03-2023 ambulatory Morelia Jensen VENDING TECHNICIAN Facility:[facility] Start: 12-02-2023 End: 12-02-2023 ambulatory Efewongbe Oleghe Facility:[facility] Start: 12-01-2023 End: 12-01-2023 Telephone encounter Laverne Monroe MD Work Phone: [facility] Comment on above: Received Outside Med ical Records ([facility] Cardiac Cath Diagnostic 11/24/2023) Start: 11-25-2023 Telephone encounter Laverne Monroe MD Work Phone: [facility] Comment on above: Received Outside Med ical Records ([facility] ED 11/20) Start: 11-24-2023 End: 12-01-2023 Evaluation and management of inpatient JORDAN HENRY MD [facility] Start: 11-24-2023 Telephone encounter Laverne Monroe MD Work Phone: [facility] Comment on above: Received Outside Med ical Records ([facility] Cardiology ) Start: 11-21-2023 ambulatory Wisam Monroe [place] Start: 11-21-2023 End: 11-24-2023 ambulatory Raz Staples Facility:[facility] Start: 10-30-2023 Telephone encounter Tello terrazas PA-C Work Phone: [facility] Comment on above: Appointment (lvm for patient to call so we can get him scheduled for a followup with tello slaughter) Start: 10-22-2023 Telephone encounter Tello terrazas PA-C Work Phone: [facility] Comment on above: Appointment (lvm for patient to call so we can get him scheduled for a follow up) Start: 10-09-2023 ambulatory Chayo Yao MA [facility] Start: 10-09-2023 Patient encounter procedure Chayo Yao MA [facility] Comment on above: Population Health Na vigation Outreach (ACO No PCP) Start: 08-05-2023 End: 08-05-2023 Subsequent hospital visit by physician Mri Radio [facility] (I-Stat/1.5t) Work Phone: Radiology Comment on above: Multiple sclerosis ( HCC) [G35] Start: 07-31-2023 Refill Tello Parish Work Phone: [facility] Comment on above: Med Change Request Start: 07-24-2023 Telephone encounter Tello terrazas PA-C Work Phone: [facility] Comment on above: Appointment (tired c alling patient to get him scheduled for a follow up but the number did not work so sent mychart ) Start: 07-07-2023 ambulatory Tello Parish Work Phone: [facility] Comment on above: BACLOFEN 10 MG TABLE T Start: 07-04-2023 End: 07-04-2023 Patient encounter procedure Autumn Florian PA-C Work Phone: Neurology Comment on above: Seizure (HCC) (Prima ry Dx) Start: 07-01-2023 ambulatory Chayo Desir [facility] Comment on above: Population Health Na vigation Outreach (ACO No PCP) Start: 02-18-2023 Refill Kerry Garza APRN.SPORTS MANAGER Work Phone: [facility] Comment on above: Refill Request Start: 02-15-2023 End: 02-15-2023 Emergency department patient visit KHOA GOLDBERG [facility] Start: 02-15-2023 End: 02-15-2023 Emergency department patient visit Khoa Goldberg MD Work Phone: [facility] Comment on above: Laceration of left e yebrow, initial encounter (Primary Dx); Closed head injury, initial encounter Start: 12-02-2022 Refill Darline Rapp Work Phone: [facility] Comment on above: Refill Request Start: 07-11-2022 Telephone encounter Raymon Simon MD, PhD Work Phone: Neurology Comment on above: Orders (To discuss s kin rash ) Start: 07-10-2022 Telephone encounter Neurology Provid er Neurology Comment on above: Received Outside Med ical Records ([facility] office visit notes) Patient Update Start: 07-09-2022 End: 07-09-2022 Patient encounter procedure Tello Slaughter PA-C Work Phone: [facility] Comment on above: Right foot drop (Mary nii Dx); Examination of participant in clinical trial; Multiple sclerosis (HCC) Start: 05-21-2022 ambulatory Isaías Hansen PRN.CNP Work Phone: Family Practice Start: 04-19-2022 Telephone encounter Dianne kemp PA-C Work Phone: [facility] Comment on above: Orders Start: 04-11-2022 Chart abstracting Elke ([facility] h) [facility] Start: 04-03-2022 End: 04-03-2022 Patient encounter procedure Raymon Simon MD, PhD Work Phone: Neurology Comment on above: Seizure (HCC) Start: 02-14-2022 Telephone encounter Laverne Monroe MD Work Phone: [facility] Comment on above: Outside Lab Results ([facility]) Start: 02-01-2022 Telephone encounter Laverne Monroe MD Work Phone: [facility] Comment on above: Received Outside Med ical Records ([facility] Aldolase 01/28/2022) Start: 01-29-2022 Telephone encounter Laverne Monroe MD Work Phone: [facility] Comment on above: Outside Labs Results ([facility]) Start: 01-28-2022 End: 01-28-2022 ambulatory [facility] Work Phone: Start: 01-28-2022 End: 01-28-2022 Patient encounter procedure [facility] [place] Start: 01-17-2022 End: 01-17-2022 ambulatory Kailey Lebron PT, DPT Work Phone: [facility] Comment on above: MS (multiple scleros is) (HCC) (Primary Dx); Imbalance; Abnormality of gait; Leg weakness, bilateral Start: 01-11-2022 End: 01-11-2022 ambulatory KAILEY BEBB Facility:[facility] Start: 01-11-2022 End: 01-11-2022 ambulatory Kailey Lebron PT, DPT Work Phone: [facility] Comment on above: MS (multiple scleros is) (HCC) (Primary Dx); Imbalance; Abnormality of gait; Leg weakness, bilateral Start: 01-09-2022 ambulatory Tello Parish Work Phone: [facility] Comment on above: Last visit Start: 01-08-2022 ambulatory Elke ([facility]) [facility] Start: 01-08-2022 End: 01-08-2022 Patient encounter procedure Tello Slaughter PA-C Work Phone: [facility] Comment on above: Seizure (HCC); Examination of participant in clinical trial; Multiple sclerosis ([facility]) Start: 01-03-2022 Chart abstracting Darline North MD Work Phone: [facility] Comment on above: Medication Preauthor ization (Dimethyl Fumarate 240 mg.) Start: 12-24-2021 End: 12-24-2021 Subsequent hospital visit by physician X[facility] Work Phone: Radiology Comment on above: Shoulder injury, rig ht, initial encounter [S49.91XA] Start: 12-20-2021 Refill Darline Rapp Work Phone: [facility] Comment on above: Refill Request Start: 12-12-2021 End: 12-12-2021 ambulatory [facility] Work Phone: Start: 12-12-2021 End: 12-12-2021 Patient encounter procedure [facility] Start: 11-07-2021 Refill Tello Parish Work Phone: [facility] Comment on above: Refill Request Start: 11-02-2021 End: 11-02-2021 Patient encounter procedure Dianne Leigh PA-C Work Phone: [facility] Comment on above: Dermatitis (Primary Dx) Start: 11-01-2021 End: 11-01-2021 ambulatory LAVERNE MONROE Facility:[facility] Start: 11-01-2021 End: 11-01-2021 ambulatory Kailey Lebron PT, DPT Work Phone: [facility] Comment on above: Leg weakness, bilate ral; Imbalance; Abnormality of gait; MS (multiple sclerosis) (HCC) Start: 10-24-2021 End: 10-24-2021 ambulatory Kailey Lebron PT, DPT Work Phone: [facility] Comment on above: Leg weakness, bilate ral; Imbalance; Abnormality of gait; MS (multiple sclerosis) ([facility]) Start: 10-11-2021 End: 10-11-2021 ambulatory [facility] Start: 10-11-2021 End: 10-11-2021 ambulatory Kailey Lebron PT, DPT Work Phone: [facility] Comment on above: Leg weakness, bilate ral; Imbalance; Abnormality of gait; MS (multiple sclerosis) ([facility]) Start: 10-10-2021 End: 10-10-2021 [facility] Start: 10-10-2021 End: 10-10-2021 ambulatory Kailey Lebron PT, DPT Work Phone: [facility] Comment on above: Leg weakness, bilate ral; Imbalance; Abnormality of gait; MS (multiple sclerosis) ([facility]) Start: 09-26-2021 Chart abstracting Tello Slaughter PA-C Work Phone: [facility] Comment on above: Handicap Placard Scr ipt Start: 09-20-2021 End: 09-20-2021 [facility] Start: 09-20-2021 End: 09-20-2021 ambulatory Kailey Lebron PT, DPT Work Phone: [facility] Comment on above: Leg weakness, bilate ral; Imbalance; Abnormality of gait; MS (multiple sclerosis) ([facility]) Start: 09-18-2021 End: 09-18-2021 ambulatory [facility] Start: 09-18-2021 End: 09-18-2021 ambulatory Kailey Lebron PT, DPT Work Phone: [facility] Comment on above: Leg weakness, bilate ral; Imbalance; Abnormality of gait; MS (multiple sclerosis) ([facility]) Start: 09-06-2021 End: 09-06-2021 ambulatory [facility] Facility:[facility] Start: 08-15-2021 End: 08-15-2021 ambulatory [facility] Start: 08-15-2021 End: 08-15-2021 ambulatory [facility] PT, DPT Work Phone: [facility] Comment on above: Leg weakness, bilate ral (Primary Dx); Multiple sclerosis (HCC); Abnormality of gait; Imbalance Start: 08-02-2021 Refill Tello Parish Work Phone: [facility] Comment on above: Refill Request Start: 07-28-2021 ambulatory Tello Parish Work Phone: [facility] Comment on above: Mri Start: 07-23-2021 End: 07-23-2021 Subsequent hospital visit by physician Mri Radio [facility] (I-Stat/1.5t) Work Phone: Radiology Comment on above: Multiple sclerosis, relapsing-remitting (HCC) [G35] Start: 10-13-2020 End: 10-13-2020 Subsequent hospital visit by physician Xr [facility] Work Phone: Radiology Comment on above: Elbow injury, left, initial encounter [S59.902A] Start: 09-13-2011 Patient encounter procedure Mri (I-Stat/1.5t) Work Phone: [facility] Work Phone: Procedures Date Procedure Procedure Detail [...] shoulder complete minimum 2 views Michael Rushing JOURNEYMAN LEVEL ACOUSTIC ANALYST.SPORTS MANAGER Work Phone: Start: 07-23-2021 BRAIN & CERVICAL SPINE MRI DISCRETE DATA [facility] Provider Start: 07-23-2021 Mri brain brain stem w/o w/contrast material Tello Slaughter PA-C Work Phone: Start: 07-01-2021 Adult depression screening assessment Mri (I-Stat/1.5t) Work Phone: Start: 10-13-2020 Radex elbow complete minimum 3 views Wilma Aguilera JOURNEYMAN LEVEL ACOUSTIC ANALYST.SPORTS MANAGER Work Phone: Start: 02-18-2019 Lipid 1996 panel - Serum or Plasma Kerry Garza JOURNEYMAN LEVEL ACOUSTIC ANALYST.SPORTS MANAGER Work Phone: Start: 08-16-2011 Colonoscopy Mri (I-Stat/1.5t) Work Phone: Start: 04-14-1967 Splenectomy JORDAN HENRY MD Catheterization of l eft heart JORDNA HENRY MD History of coronary artery bypass grafting S/P CABG x 2 Laverne Monroe MD Work Phone: Plan of Treatment Date Care Activity Detail Author Start: 2030 RSV Vaccine (1 - 1-d ose 75+ series) RSV Vaccine (1 - 1-dose 75+ series) [facility] Start: 07-29-2029 Lipid panel Lipid Screening [facility] Start: 03-24-2029 Lipid panel Lipid Screening [facility] Start: 07-08-2026 Diabetes Screening Diabetes Screenin g [facility] Start: 11-10-2025 Medicare Annual Well ness Visit Medicare Annual Wellness Visit [facility] Start: 02-24-2025 End: 02-24-2025 Patient encounter procedure 02/24/2025 11:15 AM EST Office Visit [facility] [address] [address] Tello Slaughter PA-C [address] [facility] [place] [address] [facility] Comment on above: in Start: 02-21-2025 End: 02-21-2025 Patient encounter procedure 02/21/2025 9:00 AM EST Appointment Radiology [address] [place] [address] ..MRI BRAIN WO/W IVCON Radiology Comment on above: ..MRI BRAIN WO/W IVC ON Start: 01-18-2025 End: 01-18-2025 Patient encounter procedure 01/18/2025 9:00 AM EDT Office Visit Family [address] [place], [place] [id number] Laverne Monroe MD [address] [place] [address] [place], [place] [id number] [facility] [facility] Family Practice Comment on above: MEDICARE WELLNESS Start: 12-13-2024 Influenza vaccination [facility] Start: 11-10-2024 End: 02-09-2025 CBC panel - Blood by Automated count COMPLETE BLOOD COUNT Lab Routine Anemia, blood loss Expected: 11/10/2024, Expires: 02/09/2025 [facility] Comment on above: Expected: 11/10/2024 , Expires: 02/09/2025 Start: 11-10-2024 End: 02-09-2025 Iron and Iron binding capacity panel - Serum or Plasma IRON AND TIBC Lab Routine Anemia, blood loss Expected: 11/10/2024, Expires: 02/09/2025 [facility] Comment on above: Expected: 11/10/2024 , Expires: 02/09/2025 Start: 11-10-2024 End: 02-09-2025 PSA/PROSTATE SPECIFIC ANTIGEN SCREENING PSA/PROSTATE SPECIFIC ANTIGEN SCREENING Lab Routine Screening for prostate cancer Expected: 11/10/2024, Expires: 02/09/2025 [facility] Work Phone: Comment on above: Expected: 11/10/2024 , Expires: 02/09/2025 Start: 08-19-2024 End: 08-19-2024 Patient encounter procedure 08/19/2024 11:15 AM EDT Office Visit [address] [address] Tello Slaughter PA-C [address] [place], [place] [id number] [facility] Comment on above: in Start: 08-05-2024 End: 08-05-2024 Patient encounter procedure 08/05/2024 10:30 AM EDT Office Visit [address] [address] Tello Slaughter PA-C [address] [place], [place] [id number] [facility] Comment on above: in Start: 04-30-2024 DTaP/Tdap/Td Vaccine s (2 - Td or Tdap) DTaP/Tdap/Td Vaccines (2 - Td or Tdap) [facility] Start: 04-30-2024 Urine microalbumin profile [facility] Start: 04-14-2024 Advance Directive Discussion Advance Directive Discussion [facility] Start: 02-19-2024 Lipid 1996 panel - S pedro or Plasma Lipid Screening [facility] Start: 02-19-2024 Lipid panel Lipid Screening [facility] Start: 02-19-2024 LIPID SCREEN LIPID SCREEN [facility] Start: 02-19-2024 PROSTATE CANCER SCREENING DISCUSSION PROSTATE CANCER SCREENING DISCUSSION [facility] Start: 02-19-2024 Prostate specific antigen measurement Prostate Cancer Screening Discussion [facility] Start: 02-05-2024 End: 05-06-2024 25-hydroxyvitamin D3 [Mass/volume] in Serum or Plasma VITAMIN D 25 HYDROXY Lab Routine Vitamin D deficiency Expected: 02/05/2024, Expires: 05/06/2024 [facility] Comment on above: Expected: 02/05/2024 , Expires: 05/06/2024 Start: 02-05-2024 End: 02-05-2024 Patient encounter procedure 02/05/2024 11:15 AM EDT Office Visit [facility] [address] [address] Tello Slaughter PA-C [address] [place] [address] [facility] Comment on above: ms Start: 02-04-2024 End: 05-05-2024 CBC W Auto Differential panel - Blood COMPLETE BLOOD COUNT AND DIFFERENTIAL Lab Routine Multiple sclerosis (HCC) Expected: 02/04/2024, Expires: 05/05/2024 [facility] Work Phone: Comment on above: Expected: 02/04/2024 , Expires: 05/05/2024 Start: 02-04-2024 End: 05-05-2024 Hepatic function 2000 panel - Serum or Plasma HEPATIC FUNCTION PNL Lab Routine Multiple sclerosis (HCC) Expected: 02/04/2024, Expires: 05/05/2024 [facility] Comment on above: Expected: 02/04/2024 , Expires: 05/05/2024 Start: 01-21-2024 End: 01-21-2024 Patient encounter procedure 01/21/2024 11:00 AM EDT Office Visit Family Practice [address] [place] [address] [place], [place] [phone] Laverne Monroe MD [address] [facility] [place] [address] Rehab follow up Family Practice Comment on above: Rehab follow up Start: 01-13-2024 End: 01-13-2024 Patient encounter procedure 01/13/2024 10:30 AM EDT Office Visit [address] [address] Tello Slaughter PA-C [address] [place] [address] ms [facility] Comment on above: ms Start: 12-18-2023 End: 12-18-2023 Patient encounter procedure 12/18/2023 1:00 PM EDT Office Visit [address] [address] Tello Slaughter PA-C [address] [place] [address] ms [facility] Comment on above: in Start: 12-14-2023 Covid-19 Vaccine ( season) Covid-19 Vaccine () [facility] Start: 12-14-2023 Influenza vaccination [facility] Start: 07-04-2023 End: 10-03-2023 CBC panel - Blood by Automated count CBC Lab Routine Seizure (HCC) Expected: 07/04/2023, Expires: 10/03/2023 [facility] Work Phone: Comment on above: Expected: 07/04/2023 , Expires: 10/03/2023 Start: 07-04-2023 End: 10-03-2023 Comprehensive metabolic 2000 panel - Serum or Plasma COMP METABOLIC PANEL Lab Routine Seizure (HCC) Expected: 07/04/2023, Expires: 10/03/2023 [facility] Work Phone: Comment on above: Expected: 07/04/2023 , Expires: 10/03/2023 Start: 07-04-2023 End: 10-03-2023 Zonisamide [Mass/volume] in Serum or Plasma ZONISAMIDE Lab Routine Seizure (HCC) Expected: 07/04/2023, Expires: 10/03/2023 [facility] Work Phone: Comment on above: Expected: 07/04/2023 , Expires: 10/03/2023 Start: 04-14-2023 Advance Directive Discussion Advance Directive Discussion [facility] Start: 04-14-2023 Depression Assessment Depression Ass essment [facility] Start: 02-18-2023 End: 05-20-2023 CBC W Auto Differential panel - Blood CBC + DIFF Lab Routine Multiple sclerosis (HCC) Expected: 02/18/2023, Expires: 05/20/2023 [facility] Work Phone: Comment on above: Expected: 02/18/2023 , Expires: 05/20/2023 Start: 02-18-2023 End: 05-20-2023 Hepatic function 2000 panel - Serum or Plasma HEPATIC FUNCTION PNL Lab Routine Multiple sclerosis (HCC) Expected: 02/18/2023, Expires: 05/20/2023 [facility] Work Phone: Comment on above: Expected: 02/18/2023 , Expires: 05/20/2023 Start: 12-13-2022 Covid-19 Vaccine () Covid-19 Vaccine () [facility] Start: 12-13-2022 Influenza vaccination [facility] Start: 12-02-2022 End: 02-01-2023 CBC W Auto Differential panel - Blood CBC + DIFF Lab Routine Medication monitoring encounter Expected: 12/02/2022, Expires: 02/01/2023 [facility] Work Phone: Comment on above: Expected: 12/02/2022 , Expires: 02/01/2023 Start: 12-02-2022 End: 02-01-2023 Comprehensive metabolic 2000 panel - Serum or Plasma COMP METABOLIC PANEL Lab Routine Medication monitoring encounter Expected: 12/02/2022, Expires: 02/01/2023 [facility] Work Phone: Comment on above: Expected: 12/02/2022 , Expires: 02/01/2023 Start: 07-09-2022 End: 09-08-2022 CBC W Auto Differential panel - Blood CBC + DIFF Lab Routine Multiple sclerosis (HCC) Expected: 07/09/2022, Expires: 09/08/2022 [facility] Work Phone: Comment on above: Expected: 07/09/2022 , Expires: 09/08/2022 Start: 07-09-2022 End: 09-08-2022 Hepatic function 2000 panel - Serum or Plasma HEPATIC FUNCTION PNL Lab Routine Multiple sclerosis (HCC) Expected: 07/09/2022, Expires: 09/08/2022 [facility] Work Phone: Comment on above: Expected: 07/09/2022 , Expires: 09/08/2022 Start: 07-01-2022 Adult depression screening assessment DEPRESSION SCREENING [facility] Start: 04-14-2022 ADVANCE DIRECTIVE DISCUSSION ADVANCE DIRECTIVE DISCUSSION [facility] Start: 04-14-2022 DEPRESSION ASSESSMENT DEPRESSION ASS ESSMENT [facility] Start: 01-28-[address] [facility] Work Phone: Start: 01-21-2022 DIABETES SCREEN DIABETES SCREEN [facility] Start: 01-21-2022 Diabetes Screening Diabetes Screenin g [facility] Start: 12-20-2021 End: 02-19-2022 CBC W Auto Differential panel - Blood CBC + DIFF Lab Routine Multiple sclerosis (HCC) Expected: 12/20/2021, Expires: 02/19/2022 [facility] Work Phone: Comment on above: Expected: 12/20/2021 , Expires: 02/19/2022 Start: 12-20-2021 End: 02-19-2022 Hepatic function 2000 panel - Serum or Plasma HEPATIC FUNCTION PNL Lab Routine Multiple sclerosis (HCC) Expected: 12/20/2021, Expires: 02/19/2022 [facility] Work Phone: Comment on above: Expected: 12/20/2021 , Expires: 02/19/2022 Start: 12-13-2021 Influenza vaccination [facility] Start: 08-15-2021 Colonoscopy COLONOSCOPY [facility] Start: 08-15-2021 COLORECTAL CANCER SCREENING COLORECTAL CANCER SCREENING [facility] Start: 08-15-2021 Screening for malign ant neoplasm of colon [facility] Start: 04-14-2021 ADVANCE DIRECTIVE DISCUSSION ADVANCE DIRECTIVE DISCUSSION [facility] Start: 04-14-2021 DEPRESSION ASSESSMENT DEPRESSION ASS ESSMENT [facility] Start: 2020 Pneumococcal Vaccine : 65+ Years (1 - PCV) Pneumococcal Vaccine: 65+ Years (1 - PCV) [facility] Start: 2020 PNEUMOVAX AGE 65 AND OVER WITH 5YR LOOKBACK (#1) PNEUMOVAX AGE 65 AND OVER WITH 5YR LOOKBACK (#1) [facility] Start: 04-14-2020 Medicare Annual Well ness Visit Medicare Annual Wellness Visit [facility] Start: 2015 RSV Vaccine (1 - 1-d ose 60+ series) RSV Vaccine (1 - 1-dose 60+ series) [facility] Start: 2000 COLOGUARD (FIT-DNA) COLOGUARD (FIT-D NA) [facility] Start: [address] COLONOGRAPHY [facility] Start: 2000 FECAL OCCULT BLOOD FECAL OCCULT BLOO D [facility] Start: 2000 Screening for malign ant neoplasm of colon [facility] Start: 2000 SIGMOIDOSCOPY SIGMOIDOSCOPY [facility] Start: 1974 Pneumococcal Vaccine : 50+ (1 of 2 - PCV) Pneumococcal Vaccine: 50+ (1 of 2 - PCV) [facility] Start: 1973 Anxiety Screening Anxiety Screening [facility] Start: 1973 Depression Screening Depression Scre ing [facility] Start: 1973 Diabetes mellitus screening Diabetes Screening [facility] Start: 1973 Hepatitis C screening Hepatitis C Sc rusty [facility] Start: 1967 Depression Screening Depression Scre ing [facility] Start: 1965 Meningococcal B Vacc ine (1 of 4 - Increased Risk) Meningococcal B Vaccine (1 of 4 - Increased Risk) [facility] Start: 1965 Meningococcal B Vacc ine (1 of 5 - Increased Risk) Meningococcal B Vaccine (1 of 5 - Increased Risk) [facility] Start: 1965 Meningococcal B Vacc ine: Consider Based On Risk (1 of 4 - Increased Risk) Meningococcal B Vaccine: Consider Based On Risk (1 of 4 - Increased Risk) [facility] Start: 1965 MENINGOCOCCAL B: Consider based on risk (1 of 4 - Increased Risk Bexsero 2-dose series) MENINGOCOCCAL B: Consider based on risk (1 of 4 - Increased Risk Bexsero 2-dose series) [facility] Start: 1965 MENINGOCOCCAL B: Consider based on risk (1 of 4 - Increased Risk) MENINGOCOCCAL B: Consider based on risk (1 of 4 - Increased Risk) [facility] Start: 1961 Pneumococcal Vaccine : 65+ (1 - PCV) Pneumococcal Vaccine: 65+ (1 - PCV) [facility] Start: 1961 Pneumococcal Vaccine : 65+ (1 of 2 - PCV) Pneumococcal Vaccine: 65+ (1 of 2 - PCV) [facility] Start: 1961 PNEUMOCOCCAL: 65+ (1 - PCV) PNEUMOCOCCAL: 65+ (1 - PCV) [facility] Start: 1960 COVID-19 VACCINE (#1) COVID-19 VACCI NE (#1) [facility] Start: 1960 COVID-19 VACCINE (1) COVID-19 VACCIN E (1) [facility] Start: 1957 MENINGOCOCCAL CONJUG ATE (1 - Risk 2-dose series) MENINGOCOCCAL CONJUGATE (1 - Risk 2-dose series) [facility] [facility] Start: 1957 Meningococcal Conjug ate Vaccine (1 - Risk 2-dose series) Meningococcal Conjugate Vaccine (1 - Risk 2-dose series) [facility] Start: 07-22-1956 HIB (1 of 1 - Risk 1-dose series) HIB (1 of 1 - Risk 1-dose series) [facility] Start: 07-22-1956 Hib Vaccine (1 of 1 - Risk 1-dose series) Hib Vaccine (1 of 1 - Risk 1-dose series) [facility] Start: 1955 MENINGOCOCCAL CONJUG ATE (1 - Risk start 2-23 months series) MENINGOCOCCAL CONJUGATE (1 - Risk start 2-23 months series) [facility] Start: 1955 COVID-19 VACCINE (#1) COVID-19 VACCI NE (#1) [facility] Start: 1955 ABDOMINAL AORTIC ANEURYSM SCREENING ABDOMINAL AORTIC ANEURYSM SCREENING [facility] Start: 1955 Abdominal aortic aneurysm screening Abdominal Aortic Aneurysm Screening [facility] Start: 1955 Lipid panel Lipid Panel [facility] Start: 1955 Screening for malign ant neoplasm of colon [facility] Aldolase [Enzymatic activity/volume] in Serum or Plasma [facility] Work Phone: End: 11-10-2025 Flexible sigmoidoscopy study COLONOSCOPY DIAGNOSTIC Endoscopy Routine Anemia, blood loss Screening for colon cancer 1 Occurrences starting 11/10/2024 until 11/10/2025 [facility] Comment on above: 1 Occurrences starti ng 11/10/2024 until 11/10/2025 End: 09-18-2025 MR Brain WO and W contrast IV MRI BRAIN WO/W IVCON Radiology Routine Multiple sclerosis (HCC) 1 Occurrences starting 08/19/2024 until 09/18/2025 [facility] Work Phone: Comment on above: 1 Occurrences starti ng 08/19/2024 until 09/18/2025 End: 08-08-2023 Mri brain brain stem w/o w/contrast material MRI BRAIN WO/W IVCON Radiology Routine Multiple sclerosis (HCC) 1 Occurrences starting 07/09/2022 until 08/08/2023 [facility] Work Phone: Comment on above: 1 Occurrences starti ng 07/09/2022 until 08/08/2023 Procedure [facility] Work Phone: PT PLAN OF CARE CERTIFICATION PT PLAN OF CARE CERTIFICATION Procedures Routine Multiple sclerosis (HCC) Leg weakness, bilateral Abnormality of gait Imbalance Ordered: 08/15/2021 [facility] Work Phone: Comment on above: Ordered: 08/15/2021 PT PLAN OF CARE CERTIFICATION PT PLAN OF CARE CERTIFICATION Procedures Routine Leg weakness, bilateral Imbalance Abnormality of gait MS (multiple sclerosis) (HCC) Ordered: 10/24/2021 [facility] Work Phone: Comment on above: Ordered: 10/24/2021 PT PLAN OF CARE CERTIFICATION PT PLAN OF CARE CERTIFICATION Procedures Routine MS (multiple sclerosis) (HCC) Imbalance Abnormality of gait Leg weakness, bilateral Ordered: 01/11/2022 [facility] Work Phone: Comment on above: Ordered: 01/11/2022 End: 12-10-2025 US Abdominal Aorta for screening US SCREENING FOR AAA Radiology Routine Screening for abdominal aortic aneurysm 1 Occurrences starting 11/10/2024 until 12/10/2025 [facility] Comment on above: 1 Occurrences starti ng 11/10/2024 until 12/10/2025 [facility] Immunizations Immunization Date Immunization Notes Care Provider Fa cility 11-10-2024 pneumococcal Conjuga te, unspecified formulation Laverne Monroe MD Work Phone: [facility] 11-10-2024 pneumococcal conjuga te (PCV20) vaccine, 20 valent (PREVNAR 20) Laverne Monroe MD Work Phone: [facility] 02-08-2020 zoster vaccine recombinant Mri (I-Stat/1.5t) Work Phone: [facility] 12-08-2019 zoster vaccine recombinant Mri (I-Stat/1.5t) Work Phone: [facility] 04-30-2014 tetanus toxoid, redu luis diphtheria toxoid, and acellular pertussis vaccine, adsorbed Mri (I-Stat/1.5t) Work Phone: [facility] 02-08-2008 influenza virus vacc ine, unspecified formulation Mri (I-Stat/1.5t) Work Phone: [facility] Payers Date Payer Category Payer Unknown [id number] 2023 Self-pay 2020 Private Health Insurance [facility] INDEMNITY [id number] [address]-[facility] [phone] [address] [place] [address] Indemnity [id number] 2020 Private Health Insurance [id number] 2020 Medicare MEDICARE MEDICAR E A AND B [id number] [address] [address] [address] [place] [id number] Medicare [id number] 2020 Medicare [id number] 2020 Medicare [id number] 2018 Private Health Insurance [id number] 2011 Private Health Insurance [id number] [id number] 1955 Unknown [id number]. 627 1955 Unknown [id number] 2.840.1.549036.3.579.2. 627 Unknown [id number] 2.840.1.550122.3.579.2. 462 Unknown [id number] 2.840.1.439402.3.579.2. 462 Unknown [id number] 2.16840.1.749664.3.579.2. 462 Unknown [id number] 2.16840.1.554006.3.579.2. 462 Unknown [id number] 2.840.1.336400.3.579.2. 462 Unknown [id number] 2.16840.1.165409.3.579.2. 462 Unknown [id number] 2.16840.1.459056.3.579.2. 462 Unknown [id number] 2.16.840.1.351509.3.579.2. 462 Unknown [id number] 2.16840.1.754159.3.579.2. 462 Unknown [id number] 2.16840.1.334946.3.579.2. 462 Unknown [id number] 2.840.1.317809.3.579.2. 462 Unknown [id number] 2.840.1.928693.3.579.2. 462 Unknown [id number] 2.840.1.094319.3.579.2. 462 Unknown [id number] 2.840.1.349444.3.579.2. 462 Unknown [id number] 2.840.1.604520.3.579.2. 462 Unknown [id number] 2.840.1.080509.3.579.2. 462 Unknown [id number] 2.840.1.927074.3.579.2. 462 Unknown [id number] 2.840.1.154847.3.579.2. 462 Unknown [id number] 2.840.1.531093.3.579.2. 462 Unknown [id number] 2.840.1.011981.3.579.2. 462 Unknown [id number] 2.840.1.440783.3.579.2. 462 Unknown [id number] 2.16840.1.972557.3.579.2. 462 Unknown [id number] 2.16840.1.782928.3.579.2. 462 Unknown [id number] 2.840.1.003932.3.579.2. 462 Social History Date Type Detail Facility Start: 06-28-2010 End: 12-24-2021 Tobacco smoking status NHIS Ex-smoker [facility] Work Phone: History of tobacco use Cigarette Smoker [facility] Work Phone: Start: 06-28-2010 End: 12-24-2021 Tobacco use and exposure Smokeless tobacco non-user [facility] Work Phone: Start: 07-04-2021 End: 11-10-2024 Alcohol intake Current non-drinker of alcohol (finding) [facility] Start: 12-06-2019 History SDOH Alcohol Frequency 2 [facility] Start: 12-06-2019 History SDOH Alcohol Std Drinks 98 [facility] Start: 12-06-2019 History SDOH Social Connections Phone 5 [facility] Start: 12-06-2019 History SDOH Social Connections Caodaism 3 [facility] Start: 12-06-2019 History SDOH Social Connections Membership 1 [facility] Start: 12-06-2019 Education 14 [facility] Start: 06-21-2011 End: 12-24-2021 Tobacco Comment Quit smoking 2008. [facility] Start: 1955 Sex Assigned At Male [facility] Start: 09-13-2020 End: 01-08-2022 Exposure to SARS-CoV-2 (event) Not sure [facility] Start: 12-12-2021 Tobacco smoking status ILIS Unknown if ever smoked [facility] Work Phone: History of tobacco use Current smoker [facility] Work Phone: Start: 12-06-2019 End: 07-04-2023 History of Social function [facility] Start: 12-06-2019 End: 07-04-2023 Social connection and isolation panel [facility] Do you belong to any clubs or organizations such as scientology groups, unions, fraternal or athletic groups, or school groups? Yes [facility] Are you now , , , , never or living with a partner? [facility] How often to you hav e a drink containing alcohol? Monthly or less [facility] Start: 03-15-2012 How many standard drinks containing alcohol do you have on a typical day? Patient refused [facility] Do you feel stress - tense, restless, nervous, or anxious, or unable to sleep at night because your mind is troubled all the time - these days [OSQ] Not at all [facility] (I/We) worried milly er (my/our) food would run out before (I/we) got money to buy more. Never true [facility] In the past 12 month s, was there a time when you were not able to pay the mortgage or rent on time? No [facility] Start: 03-29-2020 Gender identity Identifies as male gender (finding) [facility] Start: 03-29-2020 Sexual orientation Heterosexual (finding) [facility] Start: 02-15-2023 Alcohol intake Current drinker of alcohol (finding) [facility] How many standard dr inks containing alcohol do you have on a typical day? 1 or 2 [facility] How often do you hav e 6 or more drinks on 1 occasion? 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 Occupational Therapy, Physical Therapy [facility] 12-01-2023 Functional Status Non-Slip footw ear, Room check performed [facility] 12-01-2023 Functional Status Done [facility] 12-01-2023 Functional Status [facility] 12-01-2023 Functional Status [facility] 12-01-2023 Functional Status [facility] 11-30-2023 Functional Status [facility] 11-29-2023 Functional Status [facility] 11-28-2023 Functional Status bilateral knee high david lied/on [facility] 11-28-2023 Functional Status [facility] 11-28-2023 Functional Status Dinner Percent 50 [facility] 11-28-2023 Functional Status [facility] 11-28-2023 Functional Status Min A [facility] 11-27-2023 Functional Status [facility] 11-26-2023 Functional Status Patient Identi fied Identification band [facility] 11-26-2023 Functional Status NPO Status Maintained A [facility] 11-25-2023 Functional Status [facility] 11-25-2023 Functional Status [facility] 11-25-2023 Functional Status [facility] 11-25-2023 Functional Status [facility] 11-25-2023 Functional Status [facility] 11-24-2023 Functional Status [facility] 11-24-2023 Functional Status [facility] 11-24-2023 Functional Status [facility] 11-24-2023 Functional Status Sensory Deficits None [facility] 06-29-2014 Are you deaf, or do you have serious difficulty hearing No 06/29/2014 3:27 PM Brenna Mcneal MA No [facility] 06-29-2014 Are you blind, or do you have serious difficulty seeing, even when wearing glasses No 06/29/2014 3:27 PM Brenna Mcneal MA No [facility] 06-29-2014 Do you have serious difficulty walking or climbing stairs Yes 06/29/2014 3:27 PM Brenna Mcneal MA Yes [facility] 06-29-2014 Do you have difficul ty dressing or bathing No 06/29/2014 3:27 PM Brenna Mcneal MA No [facility] 06-29-2014 Because of a physica l, mental, or emotional condition, do you have difficulty doing errands alone such as visiting a physician's office or shopping Yes 06/29/2014 3:27 PM Brenna Mcneal MA Yes [facility] Mental Status Date Assessment Result Facility 12-01-2023 Mental Status Oriented x 4 [facility] 12-01-2023 Mental Status [facility] 12-01-2023 Mental Status [facility] 06-29-2014 Because of a physica l, mental, or emotional condition, do you have serious difficulty concentrating, remembering, or making decisions Yes 06/29/2014 3:27 PM Brenna Mcneal MA Yes [facility] Clinical Notes 06-16-2003 to 11-10-2024 Laverne Monroe MD - 11/10/2024 1:38 PM EDTTelephone Encounter - Tello Slaughter PA-C - 10/14/2024 10:30 AM EDTTelephone Encounter - Tello Slaughter PA-C - 10/14/2024 10:30 AM EDT Note Date & Type Note Facility 11-10-2024 Note HNO ID: [id number] Author: LAVERNE MONROE MD Service: ? Author [...] Enjoys spending time outdoors, including trips to [place] in the winter. - Family history: Father lived to 93 years old. Multiple Sclerosis: - Managed by the [facility]. - Currently on Tecfidera; reports feeling well overall. - Experiencing balance issues, with a few minor falls. - Engages in physical therapy, swimming, and biking at [facility] to maintain leg strength. - Able to perform household tasks independently. 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 Coronary Artery Disease: - Experienced left arm pain while sitting in a recliner about a year ago, leading to hospitalization. - Underwent cardiac catheterization and subsequent CABG at [facility] by Dr. Hernandez. - Currently on Plavix. - No recent follow-up with machine grainer Dr. Petersen. Atrial Fibrillation: - Developed during [...] problem (R26.89) - Ongoing care at the [facility]; on Tecfidera with good response. - Mild balance issues with occasional minor falls; no major injuries. - Engages in regular physical activity (swimming, biking, walking) to maintain strength. 5. Coronary artery disease involving alatna blount (more content not included)... [facility] 11-10-2024 History of Presen t illness Narrative [...] Enjoys spending time outdoors, including trips to [place] in the winter. - Family history: Father lived to 93 years old. Multiple Sclerosis: - Managed by the [facility]. - Currently on Tecfidera; reports feeling well overall. - Experiencing balance issues, with a few minor falls. - Engages in physical therapy, swimming, and biking at [facility] to maintain leg strength. - Able to perform household tasks independently. 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 Coronary Artery Disease: - Experienced left arm pain while sitting in a recliner about a year ago, leading to hospitalization. - Underwent cardiac catheterization and subsequent CABG at [facility] by Dr. Hernandez. - Currently on Plavix. - No recent follow-up with machine grainer Dr. Petersen. Atrial Fibrillation: - Developed during [...] problem (R26.89) - Ongoing care at the [facility]; on Tecfidera with good response. - Mild balance issues with occasional minor falls; no major injuries. - Engages in regular physical activity (swimming, biking, walking) to maintain strength. 5. Coronary artery disease involving alatna coronary artery of alatna heart with angina pectoris (I25.119) 6. S/P CABG x 2 (Z95.1) - Reviewed cardiology notes from Dr. Carrillo. - S/P CABG x2 (WILLETT to LAD, reversed saphenous vein graft to D1) performed by Dr. Hernandez at [facility] in [place]. - Previously on amiodarone for post-op AFib, [...] Referred for colonoscopy with Dr. Michele at [place]. 10. Screening for prostate cancer (Z12.5) - [...] Laverne Monroe MD documented in this encounter [facility] 10-20-2024 Note HNO ID: [id number] Author: WILMA JASSO MA Service: ? Author Type: Director Of Medical Education Type: Progress Notes Filed: 10/20/2024 13:42 Note [...] orders: Medicare Annual Wellness Visit 11/10/2024 in [facility] with LAVERNE MONROE - MEDICARE WELLNESS, COLONOSCOPY 02/21/2025 in [facility] with MRI RADIO [facility] (I-STAT/1.5T) - ..MRI BRAIN WO/W IVCON 02/24/2025 in [facility] with TELLO SLAUGHTER - , follow up HCC related Navigation Signature: Wilma Jasso MA October 20, 2024 1:38 PM [facility] 10-14-2024 Telephone encounter Note The following approved medication requests have been transmitted electronically. Requested Prescriptions Signed Prescriptions Disp Refills tiZANidine (ZANAFLEX) 2 mg tablet 90 tablet 0 Sig: TAKE 1 TABLET BY MOUTH EVERYDAY AT BEDTIME Authorizing Provider: TELLO SLAUGHTER PA-C [facility] 10-14-2024 Miscellaneous Notes The following approved medication requests have been transmitted electronically. Requested Prescriptions Signed Prescriptions Disp Refills tiZANidine (ZANAFLEX) 2 mg tablet 90 tablet 0 Sig: TAKE 1 TABLET BY MOUTH EVERYDAY AT BEDTIME Authorizing Provider: TELLO SLAUGHTER PA-C Source : electronic from pharmacy requesting refill. Delivery : e-script Requested Prescriptions Pending Prescriptions Disp Refills tiZANidine (ZANAFLEX) 2 mg tablet [Pharmacy Med Name: TIZANIDINE HCL 2 MG TABLET] 90 tablet 0 Sig: TAKE 1 TABLET BY MOUTH EVERYDAY AT BEDTIME DX : Patient last seen 08/19/2024 Next Appointment : 02/24/2025 MELLY Guidry documented in this encounter [facility] 10-13-2024 Telephone encounter Note Source : electronic from pharmacy requesting refill. Delivery : e-script Requested Prescriptions Pending Prescriptions Disp Refills tiZANidine (ZANAFLEX) 2 mg tablet [Pharmacy Med Name: TIZANIDINE HCL 2 MG TABLET] 90 tablet 0 Sig: TAKE 1 TABLET BY MOUTH EVERYDAY AT BEDTIME DX : Patient last seen 08/19/2024 Next Appointment : 02/24/2025 MELLY Guidry [facility] 10-13-2024 Telephone encounter Note The following approved medication requests have been transmitted electronically. Requested Prescriptions Signed Prescriptions Disp Refills citalopram (CELEXA) 40 mg tablet 90 tablet 1 Sig: TAKE 1 TABLET BY MOUTH EVERY DAY Authorizing Provider: TELLO SLAUGHTER PA-C [facility] 10-13-2024 Miscellaneous Notes The following approved medication [...] 02/24/2025 MELLY Guidry documented in this encounter [facility] 10-13-2024 Telephone encounter Note Source : electronic from pharmacy requesting refill. Delivery : e-script Requested Prescriptions Pending Prescriptions Disp Refills citalopram (CELEXA) 40 mg tablet [Pharmacy Med Name: CITALOPRAM HBR 40 MG TABLET] 90 tablet 0 Sig: TAKE 1 TABLET BY MOUTH EVERY DAY DX : Patient last seen 08/19/2024 Next Appointment : 02/24/2025 MELLY Guidry [facility] 09-30-2024 Note HNO ID: [id number] Author: WILMA JASSO MA Service: ? Author Type: Director Of Medical Education Type: Progress Notes Filed: 09/30/2024 10:07 Note [...] orders: Medicare Annual Wellness Visit 01/18/2025 in [facility] with LAVERNE MONROE - MEDICARE WELLNESS, COLONOSCOPY 02/21/2025 in [facility] with MRI RAD[facility] (I-STAT/1.5T) - ..MRI BRAIN WO/W IVCON 02/24/2025 in [facility] with TELLO SLAUGHTER ms , follow up Navigation Signature: Wilma Jasso MA September 30, 2024 10:05 AM [facility] 09-30-2024 History of Presen t illness Narrative [...] orders: Medicare Annual Wellness Visit 01/18/2025 in [facility] with LAVERNE MONROE - MEDICARE WELLNESS, COLONOSCOPY 02/21/2025 in [facility] with MRI [facility] (I-STAT/1.5T) - ..MRI BRAIN WO/W IVCON 02/24/2025 in [facility] with TELLO SLAUGHTER ms , follow up [...] 2024 9:14 AM documented in this encounter [facility] 09-30-2024 Note HNO ID: [id number] Author: WILMA JASSO MA Service: ? Author Type: Director Of Medical Education Type: Progress Notes Filed: 09/30/2024 09:19 Note [...] Jasso MA September 30, 2024 9:14 AM [facility] 09-30-2024 Note Patient Outreach (NE TNAV) JUANITA JAY ([id number]) 1955 M Date Time Provider Department 09/30/24 [...] orders: Medicare Annual Wellness Visit 01/18/2025 in [facility] with LAVERNE MONROE MEDICARE WELLNESS, COLONOSCOPY 02/21/2025 in [facility] with MRI [facility] (I-STAT/1.5T) - ..MRI BRAIN WO/W IVCON 02/24/2025 in [facility] with TELLO SLAUGHTER - , follow up [...] orders: Medicare Annual Wellness Visit 11/10/2024 in [facility] with LAVERNE MONROE MEDICARE WELLNESS, COLONOSCOPY 02/21/2025 in [facility] with MRI RAD[facility] (I-STAT/1.5T) - ..MRI BRAIN WO/W IVCON 02/24/2025 in [facility] with TELLO SLAUGHTER - [...] Encounter Status:Closed by WILMA JASSO on 09/30/24 [facility] 09-08-2024 Note HNO ID: [id number] Author: WILMA JASSO MA Service: ? Author Type: Director Of Medical Education Type: Progress Notes Filed: 09/08/2024 13:19 Note [...] Jasso MA September 08, 2024 12:58 PM [facility] 09-08-2024 History of Presen t illness Narrative [...] 2024 12:58 PM documented in this encounter [facility] 09-08-2024 Note Patient Outreach (NE TNAV) JUNAITA JAY ([id number]) 1955 M Date Time Provider Department 09/08/24 [...] Encounter Status:Closed by WILMA JASSO on 09/08/24 [facility] 08-19-2024 Note HNO ID: [id number] Author: IZZY MENDOZA Research Coordinator Service: ? Author Type: Research Type: Progress Notes Filed: 08/19/2024 13:40 Note Text: IRB [id number]. Autoimmune neurological disorders Clinical Research Biobank [employer] [place] Clerk: Dr. Deanne Vickers (phone: [phone]) Cleaning Attendant: Nathalia Perez (phone: [phone]) Contacted patient to discuss participation in the Autoimmune neurological disorders [facility] Research Biobank. Spoke with patient in-person and patient stated that they would like time to consider participation. Izzy Mendoza, Research Coordinator [facility] 08-19-2024 History of Presen t illness Narrative IRB [id number]. Autoimmune neurological disorders Clinical Research Biob[facility] St[employer] Red[place] Clerk: Dr. Deanne Vickers (phone: [phone]) Cleaning Attendant: Nathalia Perez (phone: [phone]) Contacted patient to discuss participation in the Autoimmune neurological disorders [facility] Biobank. Spoke with patient in-person and patient stated that they would like time to consider participation. Izzy Mendoza Research Coordinator documented in this encounter [facility] 08-19-2024 Note HNO ID: [id number] Author: IZZY MENDOZA Research Vaughn Service: ? Author Type: Research Type: Progress Notes Filed: 08/19/2024 12:50 Note Text: Labs Drawn [facility] 08-19-2024 History of Presen t illness Narrative Labs Drawn documented in this encounter [facility] 08-19-2024 History of Presen t illness Narrative Images from the original note were not included. [facility] MULTIPLE SCLEROSIS FOLLOWUP/ESTABLISHED PATIENT VISIT Principal [...] overall feeling stable. Granddaughter got Went to [place] in May, had a pain epigastric area - went to hospital and they did scope - had a bleeding ulcer - cauterized the bleed - hospitalized for 5 days - stopped the Aleve/Excedrin (source of the ulcer) Got new glasses after home from [place] Stubbed toe - tripped and fell and broke glasses - poked right eye with stem of glasses and caused black eye on right Saw cardiology 1 week ago at [facility] - said all looked okay - metoprolol on hold x 6 months Denies seizure activity Denies new MS symptoms - balance gradually worse Started going back to the gym and riding bike again SUBJECTIVE & REVIEW OF SYSTEMS: Neuro-QoL Functions (higher=better functioning) Flowsheet Row Office Visit from 08/19/[address] [facility] Office Visit from 07/09/[address] [facility] Office Visit from 01/08/[address] [facility] Upper Extremity Domain T Score 43.47 48.65 46 Lower Extremity Domain T Score 36.12 34.28 37 Cognitive Function Domain T Score 49.89 47.66 49 Positive Affect Well Being T Score -- -- -- Ability To Participate In Social Roles T Score 44.12 41.16 42 Satisfaction With Social Roles T Score 39.83 62.19 45 Neuro-QoL Symptoms (higher=worse symptoms) Flowsheet [facility] Office Visit from 08/19/[address] [facility] Office Visit from 07/09/[address] [facility] Office Visit from 01/08/[address] [facility] Sleep Domain T Score 51.07 52.89 48 [...] in Neurology Office Visit from 01/08/[address] [facility] Global Physical Health T Score 34.9 42.3 [...] SPLENECTOMY PAST SURGICAL HISTORY OF 1973 Splenectomy [place] [facility] post trauma MEDICATIONS and ALLERGIES were [...] lb) BMI 23.46 kg/m MSPT Results Flowsheet [facility] Office Visit from 08/19/[address] [facility] Office Visit from 07/09/[address] [facility] Office Visit from 01/08/[address] [facility] Processing Speed Total Number Correct 35 34 [...] get labs today. Will send Rx to [facility] to attempt to make DMF more affordable. [...] and Stretching Follow-up: In [address] [facility] or sooner if needed I spent a total of 45 minutes on the date of the service which included preparing to see the patient, sawm-ny-cmpd patient care, completing clinical documentation, obtaining and/or reviewing separately obtained history, performing a medically appropriate examination, counseling and educating the patient/family/caregiver, and communicating results to the patient/family/caregiver. Tello Slaughter PA-C The chart was reviewed for possible participation in the following studies:biobank documented in this encounter [facility] 08-19-2024 Note HNO ID: [id number] Author: TELLO SLAUGHTER PA-C Service: ? Author Type: Physician Meal Cook Type: Progress Notes Filed: 08/19/2024 12:26 Note Text: [facility]LE [facility]OS[facility] FOLLOWUP/ESTABLISHED PATIENT VISIT Principal [...] overall feeling stable. Granddaughter got Went to [place] in May, had a pain epigastric area - went to hospital and they did scope - had a bleeding ulcer - cauterized the bleed - hospitalized for 5 days - stopped the Aleve/Excedrin (source of the ulcer) Got new glasses after home from [place] Stubbed toe - tripped and fell and broke glasses - poked right eye with stem of glasses and caused black eye on right Saw cardiology 1 week ago at [facility] - said all looked okay - metoprolol on hold x 6 months Denies seizure activity Denies new MS symptoms - balance gradually worse Started going back to the gym and riding bike again SUBJECTIVE AND REVIEW OF SYSTEMS: Neuro-QoL Functions (higher=better functioning) Flowsheet Row Office Visit from 08/19/[address] [facility] Office Visit from 07/09/[address] [facility] Office Visit from 01/08/[address] [facility] Upper Extremity Domain T Score 43.47 48.65 [...] Flowsheet Row Office Visit from 08/19/[address] [facility] Office Visit from 07/09/[address] [facility] Office Visit from 01/08/[address] [facility] Sleep Domain T Score 51.07 52.89 48 [...] in Neurology Office Visit from 01/08/[address] [facility] Global Physical Health T Score 34.9 42.3 [...] ~1991 MS (multiple sclerosis) (HCC) 2007 Seizures ([facility]) PAST SURGICAL HISTORY Procedure Laterality Date PARTIAL SPLENECTOMY PAST SURGICAL HISTORY OF 1972 Splenectomy [place] [facility] post trauma MEDICATIONS and ALLERGIES were [...] Flowsheet Row Office Visit from 08/19/[address] [facility] Office Visit from 07/09/[address] [facility] Office Visit from 01/08/[address] [facility] Processing Speed Total Number Correct 35 34 [...] LFTs 07/27/24 WNL (more content not included)... [facility] 08-09-2024 Note HNO ID: [id number] Author: WILMA JASSO MA Service: ? Author Type: Director Of Medical Education Type: Progress Notes Filed: 08/09/2024 13:22 Note Text: POPULATION HEALTH NAVIGATION OUTREACH Action/FYI [facility] [employer] MESSAGE SENT Topic Due (Y or N) [...] or unnecessary to reach patient: Left message [employer] message sent HCC related Navigation Signature: Wilma Jasso MA August 09, 2024 1:16 PM [facility] 08-09-2024 Note Patient Outreach (NADIYA TAPIAAV) JUANITA JAY ([id number]) 1955 M Date Time Provider Department 08/09/24 [...] Visit: Population Health Navigation Outreach [3910] [facility] Prescriptions as of 08/09/2024 - [...] Encounter Status:Closed by WILMA JASSO on 08/09/24 [facility] 07-29-2024 Telephone encounter Note Re[facility] lab [facility]. Placed in provider's inbox for review. Route to MA scanning Entered into pt chart. [facility] 07-29-2024 Miscellaneous Notes Received lab results from [facility]. Placed in provider's inbox for review. Route to MA scanning Entered into pt chart. documented in this encounter [facility] 07-19-2024 Telephone encounter Note The following approved medication requests have been transmitted electronically. Requested Prescriptions Signed Prescriptions Disp Refills tiZANidine (ZANAFLEX) 2 mg tablet 90 tablet 0 Sig: TAKE 1 TABLET BY MOUTH EVERYDAY AT BEDTIME Authorizing Provider: GAEL VILLARREAL citalopram (CELEXA) 40 mg tablet 90 tablet 0 Sig: TAKE 1 TABLET BY MOUTH EVERY DAY Authorizing Provider: GAEL VILLARREAL APRN.SPORTS MANAGER [facility] 07-19-2024 Miscellaneous Notes The following approved medication [...] 08/19/2024 Sophia Johnson documented in this encounter [facility] 07-19-2024 Telephone encounter Note Source : electronic [...] 02/05/2024 Next Appointment : 08/19/2024 Sophia Johnson [facility] Work Phone: 07-07-2024 Note HNO ID: [id number] Author: WILMA JASSO MA Service: ? Author Type: Director Of Medical Education Type: Progress Notes Filed: 07/07/2024 16:14 Note [...] Jasso MA July 07, 2024 8:01 AM [facility] 07-07-2024 History of Presen t illness Narrative [...] 2024 8:01 AM documented in this encounter [facility] 07-07-2024 Note Patient Outreach (NADIYA TAPIAAV) JUANITA JAY ([id number]) 1955 M Date Time Provider Department 07/07/24 WILMA JASSO During your visit today, we recorded the following information about you: Wilma Jasso MA 07/07/2024 4:14 PM Signed POPULATION HEALTH NAVIGATION OUTREACH Action/FYI [place] [employer] MESSAGE SENT Topic Due (Y or N) [...] Encounter Status:Closed by WILMA JASSO on 07/07/24 [facility] 06-02-2024 Note HNO ID: [id number] Author: WILMA JASSO MA Service: ? Author Type: Director Of Medical Education Type: Progress Notes Filed: 06/02/2024 09:05 Note Text: POPULATION HEALTH NAVIGATION OUTREACH Action/[place] MESSAGE SENT Topic Due (Y or N) Comments Medicare Wellness Y PCP Follow up Colorectal Cancer Screening Y Controlling Blood Pressure A1C HCC Flu Vaccine Care Everywhere Reviewed MyChart Activation Updated Appointment Note Reason for Outreach Care Gap/HCC or Scheduling Wellness Visits Care Gaps due: Medicare Annual Wellness Visit Colorectal Cancer Screening Patient Contacted: Unable or unnecessary to reach patient: Left message [employer] message sent Navigation Signature: Wilma Jasso MA June 02, 2024 8:59 AM [facility] 06-02-2024 History of Presen t illness Narrative POPULATION HEALTH NAVIGATION OUTREACH Action/FYI [employer] MESSAGE SENT Topic Due (Y or N) Comments Medicare Wellness Y PCP Follow up Colorectal Cancer Screening Y Controlling Blood Pressure A1C HCC Flu Vaccine Care Everywhere Reviewed MyChart Activation Updated Appointment Note Reason for Outreach Care Gap/HCC or Scheduling Wellness Visits Care Gaps due: Medicare Annual Wellness Visit Colorectal Cancer Screening Patient Contacted: Unable or unnecessary to reach patient: Left message [employer] message sent Navigation Signature: Wilma Jasso MA June 02, 2024 8:59 AM documented in this encounter [facility] 06-02-2024 Note Patient Outreach (NE TNAV) JUANITA JAY ([id number]) 1955 M Date Time Provider Department 06/02/24 WILMA JASSO NETNAV During your visit today, we recorded the following information about you: Wilma Jasso MA 06/02/2024 9:05 AM Signed POPULATION HEALTH NAVIGATION OUTREACH Action/FYI [place] [employer] MESSAGE SENT Topic Due (Y or N) Comments Medicare Wellness Y PCP Follow up Colorectal Cancer Screening Y Controlling Blood Pressure A1C HCC Flu Vaccine Care Everywhere Reviewed MyChart Activation Updated Appointment Note Reason for Outreach Care Gap/HCC or Scheduling Wellness Visits Care Gaps due: Medicare Annual Wellness Visit Colorectal Cancer Screening Patient Contacted: Unable or unnecessary to reach patient: Left message [employer] message sent Navigation Signature: Wilma Jasso MA June 02, 2024 8:59 AM Allergies As of Date: 06/02/2024 Noted Allergy Reaction CARBAMAZEPINE 10/22/2011 2 - Rash 14 - Other: See Comments Comments: Acute urinary retention Date Reviewed: 02/05/2024 Reviewed by: Zara Nicholas OCCA - Fully Assessed Reason for Visit: Population Health Navigation Outreach [3910] Cmt: [facility] Prescriptions as of 06/02/2024 - [...] Encounter Status:Closed by WILMA JASSO on 06/02/24 [facility] 05-03-2024 Telephone encounter Note Opened in error [facility] 05-03-2024 Miscellaneous Notes Opened in error documented in this encounter [facility] 05-03-2024 Note HNO ID: [id number] Author: WILMA JASSO MA Service: ? Author Type: Director Of Medical Education Type: Progress Notes Filed: 05/03/2024 08:39 Note Text: POPULATION HEALTH NAVIGATION OUTREACH Action/FYI No answer [employer] message sent Topic Due (Y or N) [...] to reach patient: Unable to leave message [employer] message sent HCC related Navigation Signature: Wilma Jasso MA May 03, 2024 7:45 AM [facility] 05-03-2024 Note Patient Outreach (NADIYA TNAV) JUANITA JAY ([id number]) 1955 M Date Time Provider Department 05/03/24 WILMA JASSO During your visit today, we recorded the following information about you: Wilma Jasso MA 05/03/2024 8:39 AM Signed POPULATION HEALTH NAVIGATION OUTREACH Action/FYI No answer [employer] message sent Topic Due (Y or N) [...] to reach patient: Unable to leave message [employer] message sent HCC related Navigation Signature: Wilma [...] Encounter Status:Closed by WILMA JASSO on 05/03/24 [facility] 04-22-2024 Telephone encounter Note The following approved medication requests have been transmitted electronically. Requested Prescriptions Signed Prescriptions Disp Refills dimethyl fumarate (TECFIDERA) [address] 180 capsule 3 Sig: Take 1 capsule (240 mg) by mouth two times a day. Authorizing Provider: TELLO SLAUGHTER PA-C [facility] 04-22-2024 Miscellaneous Notes The following approved medication [...] : MELLY Guidry documented in this encounter [facility] 04-22-2024 Telephone encounter Note Source : call from pharmacy requesting refill. Delivery : e-script Requested Prescriptions Pending Prescriptions Disp Refills dimethyl fumarate (TECFIDERA) [address] 180 capsule 3 Sig: Take 1 capsule (240 mg) by mouth two times a day. DX : Patient last seen 02/05/2024 Next Appointment : MELLY Guidry [facility] 04-21-2024 Telephone encounter Note The following approved medication requests have been transmitted electronically. Requested Prescriptions Signed Prescriptions Disp Refills tiZANidine (ZANAFLEX) 2 mg tablet 90 tablet 0 Sig: Take 1 tablet by mouth daily at bedtime. Authorizing Provider: TELLO SLAUGHTER citalopram (CELEXA) 40 mg tablet 90 tablet 0 Sig: Take 1 tablet by mouth once daily. Authorizing Provider: TELLO SLAUGHTER PA-C [facility] 04-21-2024 Miscellaneous Notes The following approved medication [...] 08/05/2024 MELLY Guidry documented in this encounter [facility] 04-21-2024 Telephone encounter Note Patient is going [...] 02/05/2024 Next Appointment : 08/05/2024 MELLY Guidry [facility] 04-05-2024 Telephone encounter Note Received 04/02/2024 from [facility]. Placed in provider's inbox for review. Route to MA for scanning. [facility] 04-05-2024 Miscellaneous Notes Received 04/02/2024 from [facility]. Placed in provider's inbox for review. Route to MA for scanning. documented in this encounter [facility] 04-01-2024 Telephone encounter Note Re[facility] lab [facility]. Placed in provider's inbox for review. Route to MA scanning [facility] 04-01-2024 Miscellaneous Notes Re[facility]. Placed in provider's inbox for review. Route to MA scanning documented in this encounter [facility] 02-12-2024 Note HNO ID: [id number] Author: ?, ?, ? Service: ? Author Type: ? Type: Progress Notes Filed: 02/19/2024 10:22 Note Text: Requested by: Received fax from pharmacy Medication Requested: Dimethyl Fumarate 240 mg. Insurance Name: [employer] phone #: Patient ID#: last 4 digits [id number] Faxed over completed SMART Form along with last office note to fax #[phone]. APPROVED from 02/15/2024 thru 02/14/2025, PA# [place] [id number] . [facility] 02-12-2024 History of Presen t illness Narrative Requested by: Received fax from pharmacy Medication Requested: Dimethyl Fumarate 240 mg. Insurance Name: [employer] phone #: Patient ID#: last 4 digits [id number] Faxed over completed SMART Form along with last office note to fax #[phone]. APPROVED from 02/15/2024 thru 02/14/2025, PA# Mungo [id number] . documented in this encounter [facility] 02-05-2024 History of Presen t illness Narrative Images from the original note were not included. [facility] FOLLOWUP/ESTABLISHED PATIENT VISIT Principal [...] OF SYSTEMS: Neuro-QoL Functions (higher=better functioning) Flowsheet [facility] Office Visit from 07/09/[address] [facility] Office Visit from 01/08/[address] [facility] Office Visit from 07/04/[address] [facility] Upper Extremity Domain T Score 48.65 46 49 Lower Extremity Domain T Score 34.28 37 37 Cognitive Function Domain T Score 47.66 49 46 Positive Affect Well Being T Score -- -- -- Ability To Participate In Social Roles T Score 41.16 42 50 Satisfaction With Social Roles T Score 62.19 45 44 Neuro-QoL Symptoms (higher=worse symptoms) Flowsheet [facility] Office Visit from 07/09/[address] [facility] Office Visit from 01/08/[address] [facility] Office Visit from 07/04/[address] [facility] Sleep Domain T Score 52.89 48 47 [...] in Neurology Office Visit from 01/08/[address] [facility] Global Physical Health T Score 34.9 42.3 [...] SPLENECTOMY PAST SURGICAL HISTORY OF 1972 Splenectomy [place] [facility] post trauma MEDICATIONS and ALLERGIES were [...] Flowsheet Row Office Visit from 07/09/[address] [facility] Office Visit from 01/08/[address] [facility] Office Visit from 07/04/[address] [facility] Processing Speed Total Number Correct 34 31 [...] 5 Biceps 5 5 Triceps 5 5 Community Advocate 5 5 Dorsal interossei 5 5 Lower [...] D supplementation Follow-up: In 6 months at [place] or Virtual Visit with [facility] or sooner if needed I spent a total of 45 minutes on the date of the service which included preparing to see the patient, oyqi-vm-cnnc patient care, completing clinical documentation, obtaining and/or reviewing separately obtained history, performing a medically appropriate examination, counseling and educating the patient/family/caregiver, ordering medications, tests, or procedures, and communicating results to the patient/family/caregiver. Tello Slaughter PA-C The chart was reviewed for possible participation in the following studies:None documented in this encounter [facility] 02-05-2024 Note HNO ID: [id number] Author: TELLO SLAUGHTER PA-C Service: ? Author Type: Physician Meal Cook Type: Progress Notes Filed: 02/05/2024 15:50 Note Text: [facility]LE [facility]OS[facility] FOLLOWUP/ESTABLISHED PATIENT VISIT Principal [...] OF SYSTEMS: Neuro-QoL Functions (higher=better functioning) Flowsheet [facility] Office Visit from 07/09/[address] [facility] Office Visit from 01/08/[address] [facility] Office Visit from 07/04/[address] [facility] Upper Extremity Domain T Score 48.65 46 49 Lower Extremity Domain T Score 34.28 37 37 Cognitive Function Domain T Score 47.66 49 46 Positive Affect Well Being T Score -- -- -- Ability To Participate In Social Roles T Score 41.16 42 50 Satisfaction With Social Roles T Score 62.19 45 44 Neuro-QoL Symptoms (higher=worse symptoms) Flowsheet [facility] Office Visit from 07/09/[address] [facility] Office Visit from 01/08/[address] [facility] Office Visit from 07/04/[address] [facility] Sleep Domain T Score 52.89 48 47 [...] in Neurology Office Visit from 01/08/[address] [facility] Global Physical Health T Score 34.9 42.3 [...] SPLENECTOMY PAST SURGICAL HISTORY OF 1972 Splenectomy [place] [facility] post trauma MEDICATIONS and ALLERGIES were [...] Flowsheet Row Office Visit from 07/09/[address] [facility] Office Visit from 01/08/[address] [facility] Office Visit from 07/04/[address] [facility] Processing Speed Total Number Correct 34 31 [...] strength (#/5): R (more content not included)... [facility] 01-14-2024 Telephone encounter Note Received pt records from [facility]. Placed in provider's inbox for review. Route to MA scanning [facility] 01-14-2024 Miscellaneous Notes Received pt records from [facility]. Placed in provider's inbox for review. Route to MA scanning documented in this encounter [facility] 01-06-2024 Telephone encounter Note Received visit summary from [facility]. Placed in provider's inbox for review. Route to MA scanning [facility] 01-06-2024 Miscellaneous Notes Received visit summary from [facility]. Placed in provider's inbox for review. Route to MA scanning documented in this encounter [facility] 01-06-2024 Note ORIGINAL EXAMINATION: TWO XRAY VIEWS [...] Sign Date: 01/07/2024 12:21:05 AM Ordering Provider: [facility] 01-05-2024 Telephone encounter Note Received visit summary from [facility]. Placed in provider's inbox for review. Route to MA scanning [facility] 01-05-2024 Miscellaneous Notes Received visit summary from [facility]. Placed in provider's inbox for review. Route to MA scanning documented in this encounter [facility] 12-10-2023 Telephone encounter Note Received 12/09/2023 from [facility]. Placed in provider's inbox for review. Route to MA for scanning. [facility] 12-10-2023 Miscellaneous Notes Received 12/09/2023 from [facility]. Placed in provider's inbox for review. Route to MA for scanning. documented in this encounter [facility] 12-04-2023 Telephone encounter Note Received blood type, B negative from [facility]. Placed in provider's inbox for review. Route to MA scanning Entered into pt chart [facility] 12-04-2023 Miscellaneous Notes Received blood type, B negative from [facility]. Placed in provider's inbox for review. Route to MA scanning Entered into pt chart documented in this encounter [facility] 12-01-2023 Telephone encounter Note Received 12/01/2023 from [facility]. Placed in provider's inbox for review. Route to MA for scanning. [facility] 12-01-2023 Miscellaneous Notes Received 12/01/2023 from [facility]. Placed in provider's inbox for review. Route to MA for scanning. documented in this encounter [facility] 12-01-2023 Note Discharge Instructions Thank you for allowing [facility] to assist you with your healthcare needs. The following is important discharge information regarding your hospital visit. Your Care Team FER CARRILLO, LAVERNE MOYA Your Diagnosis Acute blood loss anemia Acute pain AF (paroxysmal atrial fibrillation) Anxiety and depression CAD in [place] artery OPCABx2 (WILLETT-LAD; Ao-dx1 w/rsvg) left leg evh 11/26/23 Iron deficiency anemia Multiple sclerosis Seizure disorder What to do next Follow Up Appointments Follow Up with JORDAN HENRY MD, Thoracic Service, Vascular Service Where:[address] [place] [address] [address] [facility] [place] [address]- [phone] Additional Information: This office will call you with follow up appt. Follow Up with LAVERNE MONROE Where:[address] [place] [address]- [phone] [facility] (1) Additional Information: PLEASE CALL THIS OFFICE TO SCHEDULE A HOSPITAL FOLLOW UP APPOINTMENT. Follow Up with Critical access hospital-[phone] When:Within 1-2 days Follow Up with [facility] [address] [place] [address]- Additional Information: The Cardiac rehab department will call you to schedule you for Phase 2. If you have any questions please call us at [phone]. Thank you. Follow Up with Patient using [...] surgeon and have chest x-ray done at [facility] outpatient radiology., 12/01/23 11:21:00 EDT Other Therapies [...] - Ordered -- 12/01/23 11:21:00 EDT, KEZIA WALHS MD Transfer of Care Prognosis - Ordered [...] Once a day Refills: 2 Pickup at [facility]/pharmacy #[id number] Start 12/02/2023 New folic acid (folic acid 0.8 mg oral tablet) 1 tab(s) by mouth Once a day Duration: 14 Days Pickup at [facility]/pharmacy #[id number] Start 12/02/2023 New polyethylene glycol 3350 (Miralax Powder Packet) by mouth Once a day as needed for Constipation 12/01/2023 @ 0910am New traMADol (traMADol 50 mg oral tablet) 1 tab(s) by mouth Every 6 hours as needed for Pain, scale 7-10 CAD in [place] artery OPCABx2 (WILLETT-LAD; Ao-dx1 w/rsvg) left leg [...] Every day 12/01/2023 @ 0910am Pharmacy Information [facility]/pharmacy #[id number]: [address], [place] [phone] What How Much When Comments Stop Taking [...] and water are not available, use hand ocean transportation intermediary. ? Change your dressing as told by [...] antibiotic even if your condition improves. Take vudp-mln-hxkxbei and prescription medicines only as told by [...] 10/18/2005 Document Revised: 04/02/2019 Document Reviewed: 10/16/2016 [email or web address] Patient Education 2020 [email or web address] Additional Information VACCINATE! IT SAVES LIVES! Members of the community who have not yet received the COVID-19 vaccine and would like to receive it can visit one of [facility] vaccine clinics. There are many vaccine clinic locations within the [facility]. For locations and available times, please visit [email or web address] It is important to note that some COVID mobile vaccine clinics are held outdoors and may be canceled in rainy or stormy conditions. To learn more about pediatric vaccinations (ages 5-11), we invite you to visit the [facility] webpage. https://www.[facility].org/p ages/3349-Zjtno-Nyhmrtidbvr-Freq dxffos-Qawmx-Cvnufncbj.html To learn more about the COVID-19 vaccine, we invite you to visit the CDC website for a list of frequently asked questions.https://www.cdc.gov/co ronavirus/2019-ncov/vaccines/faq .html [employer] Patient Portal Access Instructions: Stay connected with your healthcare team and access your personal medical information anytime with the [employer] Patient Portal. Please follow the directions below to create your [employer] account: 1.Access the email account you provided upon registration to the hospital/physician office.2.Look for an invitation email from [facility].3.Open the email and access the invitation link: Accept Invitation to [employer].4.Fill in the required gonzalez to create your account. To access your account, visit [email or web address]. Click the blue button labeled "Access Patient [...] you will allow to register on the [employer] Patient Portal for access to your information. You can also access the [employer] Patient Portal on the [employer] [facility] david. Simply click on "Patient Portal" and then log into your account. If you would like to receive a full copy of your medical records, please contact the [facility] Medical Records Department by calling [phone], Friday through Friday between 8 a.m. and [...] Call your local pharmacy or go to http://[employer].All Together Now/9D5Nl5j to find one close to you.3.Make use of household items: Use cat litter or old coffee grounds to dispose medications if other options are not available. Mix your drugs with these household products, seal them in an airtight container and throw it into the garbage. Call [facility]: [phone] to be sure your drugs can be [...] aware that I should contact my doctor. 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 The following is important discharge information regarding your hospital visit. Your Care Team FER CARRILLO, LAVERNE MOYA Your Diagnosis Acute blood loss anemia Acute pain AF (paroxysmal atrial fibrillation) Anxiety and depression CAD in [place] artery OPCABx2 (WILLETT-LAD; Ao-dx1 w/rsvg) left leg evh 11/26/23 Iron deficiency anemia Multiple sclerosis Seizure disorder What to do next Follow Up Appointments Follow Up with JORDAN HENRY MD, Thoracic Service, Vascular Service Where:[address] [place] [address] [address] [facility] [place] [address]- [phone] Additional Information: This office will call you with follow up appt. Follow Up with LAVERNE MONROE Where:[address] [place], [place] [id number]- [phone] Business (1) Additional Information: PLEASE CALL THIS OFFICE TO SCHEDULE A HOSPITAL FOLLOW UP APPOINTMENT. Follow Up with Critical access hospital-[phone] When:Within 1-2 days Follow Up with Cardiac Rehab [facility] Where:[facility] [address] [place] [address]- Additional Information: The Cardiac rehab department will call you to schedule you for Phase 2. If you have any questions please call us at [phone]. Thank you. Follow Up with Patient using [...] surgeon and have chest x-ray done at [facility] outpatient radiology., 12/01/23 11:21:00 EDT Other Therapies [...] Once a day Refills: 2 Pickup at [facility]/pharmacy #[id number] New folic acid (folic acid 0.8 mg oral tablet) 1 tab(s) by mouth Once a day Duration: 14 Days Pickup at [facility]/pharmacy #[id number] New polyethylene glycol 3350 (Miralax Powder Packet) by mouth Once a day as needed for Constipation New traMADol (traMADol 50 mg oral tablet) 1 tab(s) by mouth Every 6 hours as needed for Pain, scale 7-10 CAD in [place] artery OPCABx2 (WILLETT-LAD; Ao-dx1 w/rsvg) left leg [...] cap by mouth Every day Pharmacy Information [facility]/pharmacy #[id number]: [address], [place] [phone] What How Much When Comments Stop Taking [...] and water are not available, use hand ocean transportation intermediary. ? Change your dressing as told by [...] antibiotic even if your condition improves. Take ufoo-qhy-ytsftpc and prescription medicines only as told by [...] 10/18/2005 Document Revised: 04/02/2019 Document Reviewed: 10/16/2016 [employer] Patient Education 2020 [email or web address] Additional Information VACCINATE! IT SAVES LIVES! Members of the community who have not yet received the COVID-19 vaccine and would like to receive it can visit one of [facility] vaccine clinics. There are many vaccine clinic locations within the [facility]. For locations and available times, please visit https://gettheshot.coronavirus.o hio.gov/. It is important to note that some COVID mobile vaccine clinics are held outdoors and may be canceled in rainy or stormy conditions. To learn more about pediatric vaccinations (ages 5-11), we invite you to visit the [facility] webpage. https://www.[facility].org/p ages/6460-Nsyoy-Ismxrejdvbr-Freq ujkiys-Eiabd-Fcylkywgs.html To learn more about the COVID-19 vaccine, we invite you to visit the CDC website for a list of frequently asked questions.https://www.cdc.gov/co ronavirus/2019-ncov/vaccines/faq .html [employer] Patient Portal Access Instructions: Stay connected with your healthcare team and access your personal medical information anytime with the [employer] Patient Portal. Please follow the directions below to create your [employer] account: 1.Access the email account you provided upon registration to the hospital/physician office.2.Look for an invitation email from [facility].3.Open the email and access the invitation link: Accept Invitation to [employer].4.Fill in the required gonzalez to create your account. To access your account, visit [email or web address]. Click the blue button labeled "Access Patient [...] you will allow to register on the [employer] Patient Portal for access to your information. You can also access the [employer] Patient Portal on the [employer] [facility] david. Simply click on "Patient Portal" and then log into your account. If you would like to receive a full copy of your medical records, please contact the [facility] Medical Records Department by calling [phone], Friday through Friday between 8 a.m. and [...] Call your local pharmacy or go to http://[employer]All Together Now/9V7Dp3c to find one close to you.3.Make use of household items: Use cat litter or old coffee grounds to dispose medications if other options are not available. Mix your drugs with these household products, seal them in an airtight container and throw it into the garbage. Call [facility]: [phone] to be sure your drugs can be [...] aware that I should contact my doctor. 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 ?Change your dressing as told by your [...] antibiotic even if your condition improves. Take wpev-qwj-ynaatxk and prescription medicines only as told by [...] 10/18/2005 Document Revised: 04/02/2019 Document Reviewed: 10/16/2016 [email or web address] Patient Education 2020 [facility]. Follow Up Care 11/24/2023 14:21:16 With:JORDAN HENRY MD, Thoracic Service, Vascular Service Address: [address] [facility] [address] [facility] [place] [phone] When: Unknown Comments:This office will call you with follow up appt. With:LAVERNE MONROE Address: [address] [place] [address] [place] [address]- [phone] Business (1) When: Unknown Comments:PLEASE CALL THIS OFFICE TO SCHEDULE A HOSPITAL FOLLOW UP APPOINTMENT. With:[facility]aryn [facility]-[phone] Address:Unknown When:1-2 days With:Cardiac Rehab [facility] Address: [facility] [address] [place] [address]- When: Unknown Comments:The Cardiac rehab department will call you to schedule you for Phase 2. If you have any questions please call us at [phone]. Thank you. With:Patient using own medication, return to patient at discharge. Address:Unknown When:1-2 days [facility] 12-01-2023 Note Date of Service 12/01/2023 Temporary ventricular pacing wires cut and dropped. Patient tolerated well. Bedrest x 1 hour Digitally Signed by JASMINA LIRA on 12/01/2023 11:14 AM [facility] 12-01-2023 Note Date of Service 12/01/2023 Chief Complaint POD #5 This is a 68-year-old male with past medical history of seizures (last known 2011), multiple sclerosis, anxiety, depression, and iron deficiency anemia who presented to [facility] with left arm pain and retrosternal chest pain with exertion. Stress test showed possible ischemia in the LAD territory. Echocardiogram showed an EF of 70%. He then underwent a heart catheterization that showed 95% mid LAD stenosis and 95% stenosis of the first diagonal. He was transferred to [facility] for surgical revascularization. He underwent and off [...] stable, patient ready for discharge today to [facility] Up in chair, eating breakfast, no new [...] qualifying data available. Assessment/Plan 1. CAD in [place] artery OPCABx2 (WILLETT-LAD; Ao-dx1 w/rsvg) left leg [...] Replace potassium Okay for discharge today to [facility] if they can accept Patient seen and discussed with Dr. Walsh [1] Progress Note; CAMERON RIDDLE 11/30/2023 13:13 EDT Digitally Signed by JASMINA LIRA on 12/01/2023 10:56 AM [facility] 12-01-2023 Note ORIGINAL EXAMINATION: ONE XRAY VIEW [...] 12/01/2023 5:57:46 AM Ordering Provider: CAMERON RIDDLE [facility] 11-30-2023 Note Date of Service 11/30/2023 postop day #4 Chief Complaint This is a 68-year-old male with past medical history of seizures (last known 2011), multiple sclerosis, anxiety, depression, and iron deficiency anemia who presented to [facility] with left arm pain and retrosternal chest pain with exertion. Stress test showed possible ischemia in the LAD territory. Echocardiogram showed an EF of 70%. He then underwent a heart catheterization that showed 95% mid LAD stenosis and 95% stenosis of the first diagonal. He was transferred to [facility] for surgical revascularization. He underwent and off [...] access Discharge plan: Pending PT has recommended [facility] facility for further rehab Weight Current Weight [...] lung bases. [1] Assessment/Plan 1. CAD in [place] artery OPCABx2 (WILLETT-LAD; Ao-dx1 w/rsvg) left leg [...] by CAMERON RIDDLE on 11/30/2023 01:15 PM [facility] 11-30-2023 Note SINUS RHYTHM BORDERLINE LEFT AXIS DEVIATION BORDERLINE T ABNORMALITIES, INFERIOR LEADS Electronic Signature: ZEFERINO QUINTANA MD 12/01/2023 23:45:22 [facility] 11-30-2023 Note ORIGINAL EXAMINATION: TWO XRAY VIEWS [...] 11/30/2023 6:28:22 AM Ordering Provider: CAMERON RIDDLE [facility] 11-29-2023 Note Date of Service 11/29/2023 Subjective 68 y.o. male with pmHx of seizures (last known 2011), multiple sclerosis, anxiety, depression, and iron deficiency anemia. Originally presented to [facility] on 11/21/23 due to left arm pain and restrosternal chest pain with exertion. ECHO completed 11/20 showed: EF 70%. Stress test was then completed 11/21 which showed possible ischemia in the LAD territory. Due to findings he then underwent a cardiac cath that showed 95% mid LAD stenosis and 95% stenosis of the first diag. Patient was transferred to [facility] for surgical revascularization. Surgery was discussed and [...] 11/27/23 17:05:00 EDT Assessment/Plan 1. CAD in [place] artery OPCABx2 (WILLETT-LAD; Ao-dx1 w/rsvg) left leg [...] SVEN FORBES MD on 11/29/2023 07:30 AM [facility] 11-29-2023 Note ORIGINAL EXAMINATION: ONE XRAY VIEW [...] 11/29/2023 7:36:23 AM Ordering Provider: CAMERON RIDDLE [facility] 11-28-2023 Note Date of Service 11/28/2023 Subjective 68 y.o. male with pmHx of seizures (last known 2011), multiple sclerosis, anxiety, depression, and iron deficiency anemia. Originally presented to [facility] on 11/21/23 due to left arm pain and restrosternal chest pain with exertion. ECHO completed 11/20 showed: EF 70%. Stress test was then completed 11/21 which showed possible ischemia in the LAD territory. Due to findings he then underwent a cardiac cath that showed 95% mid LAD stenosis and 95% stenosis of the first diag. Patient was transferred to [facility] for surgical revascularization. Surgery was discussed and [...] 11/27/23 17:05:00 EDT Assessment/Plan 1. CAD in [place] artery OPCABx2 (WILLETT-LAD; Ao-dx1 w/rsvg) left leg [...] SVEN FORBES MD on 11/28/2023 01:49 PM [facility] 11-28-2023 Note ORIGINAL EXAMINATION: ONE XRAY VIEW [...] 11/28/2023 6:37:24 AM Ordering Provider: YU RECIO [facility] 11-27-2023 Note SINUS RHYTHM SUPRAVENTRICULAR BIGEMINY MINIMAL ST ELEVATION, ANTERIOR LEADS NONSPECIFIC T-WAVE ABNORMALITY Electronic Signature: KATHY RICHARDS MD 11/28/2023 08:35:23 [facility] 11-27-2023 Note SINUS RHYTHM BORDERLINE LEFT AXIS DEVIATION ST ELEVATION, CONSIDER ANTERIOR INJURY Electronic Signature: KATHY RICHARDS MD 11/28/2023 08:34:55 [facility] 11-27-2023 Note ORIGINAL EXAMINATION: ONE XRAY VIEW [...] 11/27/2023 7:26:27 AM Ordering Provider: JORDAN HENRY [facility] 11-26-2023 Critical care medicine Consult note Date of Service 11/26/2023 Reason for Consultation Critical care management in the CVSICU Referring Physician Dr. Henry History of Present Illness 68-year-old male with history of multiple sclerosis, epilepsy (last seizure 2011), anxiety/depression, iron deficiency anemia, smoker (quit age 53), presented to [facility] on 11/21/2023 with complaints of left-sided arm pain, retrosternal chest pain with exertion associated with diaphoresis. He had negative troponins x 2. Echocardiogram showed an EF of 70%. Stress test 11/21 showed ischemia in the LAD territory and heart cath on 11/23 showed 95% stenosis of the mid LAD and 95% stenosis of the first diagonal coronary artery. He was transferred to [facility] on 11/23 for surgical revascularization. Today, 11/25 [...] interpretation. Assessment/Plan Anxiety and depression CAD in al[place]na artery Iron deficiency anemia Multiple sclerosis Seizure [...] History Ongoing Anxiety and depression CAD in [place] artery Iron deficiency anemia Multiple sclerosis Seizure [...] by CHUNG LU on 11/26/2023 02:14 PM [facility] 11-26-2023 Anesthesiology Consult note Patient: JUANITA JAY [...] MICHAEL CHIN MD on 11/26/2023 01:45 PM [facility] 11-26-2023 Note Exam Date Time Procedure Performing Provider Status 11/26/23 1:37 PM TRE in CVOR Auth (Verifi ed) [facility] 08-14-2024 Critical care medicine Consult note Date of Service 11/26/2023 Reason for Consultation Critical care management in the CVSICU Referring Physician Dr. Henry History of Present Illness 68-year-old male with history of multiple sclerosis, epilepsy (last seizure 2011), anxiety/depression, iron deficiency anemia, smoker (quit age 53), presented to [facility] on 11/21/2023 with complaints of left-sided arm pain, retrosternal chest pain with exertion associated with diaphoresis. He had negative troponins x 2. Echocardiogram showed an EF of 70%. Stress test 11/21 showed ischemia in the LAD territory and heart cath on 11/23 showed 95% stenosis of the mid LAD and 95% stenosis of the first diagonal coronary artery. He was transferred to [facility] on 11/23 for surgical revascularization. Today, 11/25 [...] interpretation. Assessment/Plan Anxiety and depression CAD in alatna artery Iron deficiency anemia Multiple sclerosis Seizure [...] History Ongoing Anxiety and depression CAD in [place]na artery Iron deficiency anemia Multiple sclerosis Seizure [...] by CHUNG LU on 11/26/2023 02:14 PM [id number] Note ORIGINAL HISTORY: Nasogastric tube placement COMPARISON: [...] Date: 11/26/2023 1:21:23 PM Ordering Provider: JORDAN [facility]08-14-2024 Note ORIGINAL EXAMINATION: ONE XRAY VIEW [...] Sign Date: 11/26/2023 1:29:23 PM Ordering Provider: [facility]08-14-2024 NoteSINUS RHYTHM BORDERLINE LEFT AXIS DEVIATION ANTERIOR INFARCT, POSSIBLY ACUTE Electronic Signature: KATHY RICHARDS MD 11/27/2023 09:57:43[facility] 08-14-2024 Anesthesiology Consult note Patient: JUANITA JAY [...] Oral, qHS Problem list: Medical CAD in alatna artery / SNOMED CT 40951039 / Confirmed Iron deficiency anemia / SNOMED CT 318737645 / Confirmed Anxiety and depression / SNOMED CT 132250078 / Confirmed Multiple sclerosis / SNOMED CT 31968316 / Confirmed Seizure disorder / SNOMED CT 589834693 / Confirmed, Active Problems (5) Anxiety and depression CAD in [place] artery Iron deficiency anemia Multiple sclerosis Seizure disorder Histories Past Medical History: No active or resolved past medical history items have been selected or recorded. 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 Catheterization of left heart (689964463). Social History: Social & Psychosocial Habits Alcohol [...] Oral36.3 DegC (NOV 25 03:19) Heart Rate Vmzivwtwm59 bpm (NOV 25 03:19) APZ305 mmHg (NOV 25 03:19) DBP63 mmHg (NOV [...] PTT 34.7(NOV 23) . Assessment and Plan [place] [employer] Anesthesiologists (ASA) physical status classification: [...] MICHAEL CHIN MD on 11/26/2023 07:19 AM [id number] Note* Exam Date Time Procedure Performing Provider Status 11/25/23 1:40 PM VL Palmar Arch Study Auth (Verified) [facility] 08-13-2024 History and physical note Date of Service 11/24/2023 Chief Complaint Transfer from [facility] for coronary artery bypass grafting History of Present Illness This is a 68-year-old male with past medical history of seizures (last seizure 2011), multiple sclerosis, anxiety, depression, and iron deficiency anemia. He had presented to [facility] on 11/21/2023 as of left arm [...] diagonal coronary artery. Patient was transferred to [facility] for surgical revascularization. STS risk [...] Hour Lab Data Assessment/Plan 1. CAD in [place] artery Heart catheterization completed at [facility] on 11/24/2023 revealed 95% stenosis of the mid LAD and 95% stenosis of the first diagonal coronary artery. On aspirin, metoprolol, atorvastatin Surgical workup will be ordered. Patient will be tentatively scheduled for coronary artery bypass grafting with Dr. Henry on 11/26/2023 2. Iron deficiency anemia Resume home iron supplement 3. Multiple sclerosis Patient follows with a neurologist at [facility] He ambulates with a cane Will continue home dimethyl fumarate 4. Anxiety and depression Resume home citalopram 5. Seizure disorder Patient reports last seizure in 2011 Continue home zonisamide Will request diagnostic imaging from [facility] Problem List/Past Medical History Ongoing Anxiety and depression CAD in [place]na artery Iron deficiency anemia Multiple sclerosis Seizure [...] by YU RECIO on 11/24/2023 07:18 PM [id number] Telephone encounter Note* Telephone Encounter - Elisha Anand LPN - 11/25/2023 9:53 AM EDT Received ED summary, EKG, chest xray, labs for chest pain from [facility]. Placed in provider's inbox for review. Route to MA scanning [facility]08-13-2024 Miscellaneous Notes* Telephone Encounter - Elisha Anand LPN - 11/25/2023 9:53 AM EDT Received ED summary, EKG, chest xray, labs for chest pain from [facility]. Placed in provider's inbox for review. Route to [facility] scanning [facility] Note* Exam Date Time Procedure Performing Provider Status 11/25/23 8:53 AM VL Vein Mapping US/D oppler Both Legs-CV Auth (Verified) [facility] 08-13-2024 Note* Exam Date Time Procedure Performing Provider Status 11/25/23 8:53 AM VL Carotid US/Dopple r Complete - CV Auth (Verified) [facility] 08-13-2024 Note* Exam Date Time Procedure Performing Provider Status 11/25/23 8:53 AM VL Radial Mapping Study A uth (Verified) [facility] 08-12-2024 Note ORIGINAL EXAMINATION: ONE XRAY VIEW [...] 7:56:07 PM Ordering Provider: YU [facility]08-12-2024 History and physical note Date of Service 11/24/2023 Chief Complaint Transfer from [facility] for coronary artery bypass grafting History of Present Illness This is a 68-year-old male with past medical history of seizures (last seizure 2011), multiple sclerosis, anxiety, depression, and iron deficiency anemia. He had presented to [facility] on 11/21/2023 as of left arm [...] diagonal coronary artery. Patient was transferred to [facility] for surgical revascularization. STS risk [...] Hour Lab Data Assessment/Plan 1. CAD in al[place] artery Heart catheterization completed at [facility] on 11/24/2023 revealed 95% stenosis of the mid LAD and 95% stenosis of the first diagonal coronary artery. On aspirin, metoprolol, atorvastatin Surgical workup will be ordered. Patient will be tentatively scheduled for coronary artery bypass grafting with Dr. Henry on 11/26/2023 2. Iron deficiency anemia Resume home iron supplement 3. Multiple sclerosis Patient follows with a neurologist at [facility] He ambulates with a cane Will continue home dimethyl fumarate 4. Anxiety and depression Resume home citalopram 5. Seizure disorder Patient reports last seizure in 2011 Continue home zonisamide Will request diagnostic imaging from [facility] Problem List/Past Medical History Ongoing Anxiety and depression CAD in [place] artery Iron deficiency anemia Multiple sclerosis Seizure [...] by YU RECIO on 11/24/2023 07:18 PM [id number] [facility] Medical Records Department [address] [place] [address] Discharge Summary 11/24/23 1446 MR#: [id number] Acct: [id number] Name: JUANITA JAY Rep #: [id number] : 1955 68 From: Nacho Issa MD PCP: Dr. Wisam Monroe MD Status:ADM SHARONA Location: PCU [id number] Providers Date of Admission: 11/21/23 Primary Care [...] is a 68 M who presented to [facility] ED on 11/21/2023 with chest pain. Patient has history of MS diagnosed in 2018, follows with neurology at [facility]. Notes that his primary MS symptom is [...] case was discussed with cardiothoracic surgery at [facility] and they excepted patient for evaluation. He [...] Exam Narrative General: Vale (more content not included)...[facility]08-12-2024 Telephone encounter Note* Telephone Encounter - Elisha Anand LPN - 11/24/2023 2:04 PM EDT Received cardiology consult from [facility]. Placed in provider's inbox for review. Route to MA scanning [facility]08-12-2024 Miscellaneous Notes* Telephone Encounter - Elisha Anand LPN - 11/24/2023 2:04 PM EDT Received cardiology consult from [facility]. Placed in provider's inbox for review. Route to MA scanning [facility] Evaluation + Plan note Extracted from: Title:History and Physical Author:TORI RECIO JOURNEYMAN LEVEL ACOUSTIC ANALYST-SPORTS MANAGER Date:11/24/23 1. CAD in [place] artery Heart catheterization completed at [facility] on 11/24/2023 revealed 95% stenosis of the mid LAD and 95% stenosis of the first diagonal coronary artery. On aspirin, metoprolol, atorvastatin Surgical workup will be ordered. Patient will be tentatively scheduled for coronary artery bypass grafting with Dr. Henry on 11/26/2023 2. Iron deficiency anemia Resume home iron supplement 3. Multiple sclerosis Patient follows with a neurologist at [facility] He ambulates with a cane Will continue home dimethyl fumarate 4. Anxiety and depression Resume home citalopram 5. Seizure disorder Patient reports last seizure in 2011 Continue home zonisamide Will request diagnostic imaging from [facility] Addendum by JORDAN HENRY on November 25, 2023 11:39:29 EDT Date of consult 11/25/2023 Consulting cardiothoracic Surgeon: Jordan Henry MD, FACS Reason for consultation unstable angina with severe LAD diagonal disease referred for coronary bypass surgery I reviewed the cardiac catheterization, discussed the case with Dr. Bernal at [facility] and performed the history and physical [...] with surgery tomorrow morning on 11/26/2023 at [facility]. The patient had been [facility] [place] and I brought the patient to [facility] for surgery based upon scheduling. [facility] 07-18-2024 Telephone encounter Note* Telephone Encounter - Tino Perales - 10/30/2023 8:36 AM EDTSummary: appointment lvm for patient to call so we can get him scheduled for a followup with tello slaughter [facility]07-18-2024 Miscellaneous Notes* Telephone Encounter - Tino Perales - 10/30/2023 8:36 AM EDTSummary: appointment lvm for patient to call so we can get him scheduled for a followup with tello slaughter documented in this encounterKettering [facility]07-10-2024 Telephone encounter Note * Telephone Encounter - Tino Perales - 10/22/2023 12:31 PM EDTSummary: appointment lvm for patient to call so we can get him scheduled for a follow up [facility]07-10-2024 Miscellaneous Notes* Telephone Encounter - Tino Perales - 10/22/2023 12:31 PM EDTSummary: appointment lvm for patient to call so we can get him scheduled for a follow up documented in this encounterKettering Health [facility]06-27-2024 History of Present illness Narrative* Chayo Yao [...] 09, 2023 12:30 PM documented in this encounterKettering Health [facility]ble2024 History of Present illness Narrative* Sara Barnett [...] PATIENT PRESENTS WITH AN IMPLANTABLE OR ATTACHED ASW SPECIALIST: No ALLERGIES: Reviewed and unchanged CONTRAST ALLERGY: NO. EXAM: MRI - CONTRAST TYPE: GROUP II PERIPHERAL IV DATA: Ambulatory: A peripheral IV was started in the Left upper extremity with a Angio cath: 22 gauge. RADIOLOGY DEPARTMENT: MR; Exam(s) Completed: Head: Multiple Sclerosis SIGNATURE: Sara Barnett, RT(R) PATIENT NAME: Juanita Jay DATE: August 05, 2023 TIME: 10:06 AM documented in this encounterKettering Health [facility]04-18-2024 Miscellaneous Notes* Telephone Encounter - Sun Clark APRN.CNP - 07/31/2023 4:00 PM EDT The following approved medication requests have been transmitted electronically. Requested Prescriptions Signed Prescriptions Disp Refills tiZANidine (ZANAFLEX) 2 mg tablet 90 tablet 0 Sig: TAKE 1 TABLET BY MOUTH EVERYDAY AT BEDTIME Authorizing Provider: SUN CLARK APRN.SPORTS MANAGER * Telephone Encounter - Sophia Schuster - [...] : None Sophia Johnson documented in this encounterKettering Health [facility]04-11-2024 Miscellaneous Notes* Telephone Encounter - Tino Perales - 07/24/2023 12:43 PM EDTSummary: appointment tired calling patient to get him scheduled for a follow up but the number did not work so sent mychart documented in this encounterKettering Health [facility]03-26-2024 Miscellaneous Notes* Telephone Encounter - Tello Slaughter PA-C - 07/08/2023 12:06 PM EDT The following approved medication requests have been transmitted electronically. Requested Prescriptions Signed Prescriptions Disp Refills tiZANidine (ZANAFLEX) 2 mg tablet 30 tablet 2 Sig: Take 1 tablet by mouth daily at bedtime. Tello Slaughter PA-C documented in this encounterKettering Health [facility]ble03-22-2024 Instructions* Patient Instructions* Autumn Florian PA-C - 07/04/2023 11:02 AM EDT You may walk into any [facility] without an appointment to have your blood work completed. You do not have to fast. Please have your Zonisamide level drawn in the morning BEFORE you take your AM dose of Zonisamide, or at least 8 hours AFTER you take your AM dose of Zonisamide. documented in this encounterKettering Health [facility]ble03-22-2024 History of Present illness Narrative* Autumn Florian PA-C - 07/04/2023 8:07 AM EDT [facility] Patient Name: Juanita [...] Zonegran initiation. Since he had been on [id number] mg bid, he had another seizure while [...] closely followed for his MS by the [facility]. Sleeping well- feeling rested upon awakening. Mood has been stable. Currently driving. Retired. 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 Of note, 2 weeks after taking Tegretol, he developed groin rash. He was then switched to Zonisamide. The rash was eventually thought to be shingles. PREVIOUS EVALUATIONS: EEG ([facility], 05/2009) Intermittent Slow, Regional Left fronto-temporal EEG ([facility], 11/27/2011): 1 Valdo, Regional Left frontotemporal 2 Intermittent Slow, Regional Left frontotemporal Epilepsy risk factors and/or co-morbidities (-) Brain Tumor (-) ERP IMPLEMENTATION CONSULTANT Infections (-) Developmental Delay (-) Family history [...] - Seizure risk factors: Brain Tumor No ERP IMPLEMENTATION CONSULTANT Infections No Developmental Delay No Family history [...] SPLENECTOMY PAST SURGICAL HISTORY OF 1972 Splenectomy [place] [facility] post trauma FAMILY HISTORY Problem Relation [...] which included preparing to see the patient, [id number] patient care, completing clinical documentation, obtaining and/or reviewing separately obtained history, performing a medically appropriate examination, counseling and educating the pat ient/family/caregiver, and ordering medications, tests, or procedures. Autumn Florian PA-C 07/04/2023 documented in this encounterKettering [facility]03-19-2024 History of Present illness Narrative* Chayo Yao [...] 01, 2023 10:07 AM documented in this encounterKettering Health [facility]11-07-2023 Miscellaneous Notes* Telephone Encounter - Tello Slaughter [...] Appointment : MELLY Guidry documented in this encounterKettering Health [facility]ble11-04-2023 Hospital Discharge instructions* Discharge Instructions* Khoa Goldberg [...] Care Everywhere. * Concussion Discharge Instructions, Adult (Honduran) * Laceration Repair With Stitches ED (Honduran) * Laceration Repair With Glue Discharge Instructions (Honduran) documented in this [facility]11-04-2023 Emergency department Note* Khoa Goldberg MD - [...] Medical History: Diagnosis Date MS (multiple sclerosis) ([facility]) SURGICAL HISTORY History reviewed. No pertinent surgical [...] [facility] (Per Emergency Physician): Interpretation per [...] result, poor wound healing, pain and infection [place] protocol: Procedure explained and questions answered to [...] poor wound healing Alternatives discussed: Delayed treatment [place] protocol: Procedure explained and questions answered to [...] within reach. A&O x3. documented in this [facility]11-04-2023 Emergency department Triage note* Yamel Diaz RN [...] sutures. Call light within reach. A&O x3. [facility], [id number] Physician Emergency department Note* Khoa Goldberg MD [...] Medical History: Diagnosis Date MS (multiple sclerosis) ([facility]) SURGICAL HISTORY History reviewed. No pertinent surgical [...] 10 mL (10 mL Infiltration Given 02/15/23 9595) REVAL: Patient is alert and orient x4. [...] result, poor wound healing, pain and infection [place] protocol: Procedure explained and questions answered to [...] poor wound healing Alternatives discussed: Delayed treatment [place] protocol: Procedure explained and questions answered to [...] Emergency Medicine Provider Khoa Goldberg MD 02/15/231915 [facility], [id number] Miscellaneous Notes* Telephone Encounter - Kerry Garza APRN.SPORTS MANAGER - 12/02/2022 3:26 PM EDT Reviewed medication [...] TIMES A DAY Authorizing Provider: KERRY GARZA APRN.SPORTS MANAGER * Telephone Encounter - Sophia Schuster - [...] : None Sophia Johnson documented in this encounterKettering Health [facility]04-24-2023 Miscellaneous Notes* Telephone Encounter - Daisha Jones [...] MD, PhD - 07/11/2022 12:32 PM EDT [facility] dermatoloigst diagnosed a drug rash. He has been on Zonismide since 2011. Need for know patient, what causes the rash? documented in this encounterKettering Health [facility]03-30-2023 Miscellaneous Notes* Telephone Encounter - Isaías Cartwright [...] Audrey Martinez - 07/10/2022 9:38 AM EDT [place] Call Name of caller : Juanita Relationship to patient: Self Return call phone number : [phone] Reason for call : Other : Brief description of concern : Patient states he was told by Nedra to give her a call when he obtain information pertaining to a previous visit. documented in this encounterKettering Health [facility]03-29-2023 Miscellaneous Notes* Telephone Encounter - Roxana Najera - 07/10/2022 2:06 PM EDT OS office visit notes addressed to Dr. Darline North faxed to [facility] referring physician hot[facility] [place] Forwarded records to Dr. North in [place] at [phone]. Also uploaded to chart. documented in this encounterKettering Health [facility]03-28-2023 History of Present illness Narrative* Tello Slaughter PA-C - 07/09/2022 1:53 PM EDT Images from the original note were not included. [facility] FOLLOWUP/ESTABLISHED PATIENT VISIT Principal [...] OF SYSTEMS: Neuro-QoL Functions (higher=better functioning) Flowsheet [facility] Office Visit from 01/08/[address] [facility] Office Visit from 07/04/[address] [facility] Appointment from 06/14/[address] [facility] Upper Extremity Domain T Score 46 49 39 Lower Extremity Domain T Score 37 37 37 Cognitive Function Domain T Score 49 46 48 Positive Affect Well Being T Score -- -- -- Ability To Participate In Social Roles T Score 42 50 44 Satisfaction With Social Roles T Score 45 44 49 Neuro-QoL Symptoms (higher=worse symptoms) Flowsheet [facility] Office Visit from 01/08/[address] [facility] Office Visit from 07/04/[address] [facility] Appointment from 06/14/[address] [facility] Sleep Domain T Score 48 47 46 Fatigue Domain T Score 49 50 52 Anxiety Domain T Score 46 41 47 Depression Domain T Score 48 47 50 Stigma Domain T Score 45 37 54 Emotional Behavior Dyscontrol T Score -- -- -- *NeuroQoL is a multi-domain patient-reported quality of life questionnaire. PHQ-9 Flowsheet [facility] Office Visit from 04/03/2022 in Neurology Office Visit from 01/08/[address] [facility] PHQ-9 Score 2 0 *PHQ-9 is a questionnaire for depressive symptoms, with scores 0-4 indicating none, 5-9 mild, 10-14moderate, 15-19 moderately severe, and 20-27 severe symptoms. PROMIS-10 Flowsheet Row Office Visit from 01/08/[address] [facility] OT/PT/Speech Visit from 10/11/2021 in [facility] Outpatient Physical Therapy Global Physical Health [...] Diagnosis Date Leptospirosis ~1991 MS (multiple sclerosis) ([facility]) 2007 Seizures (HCC) PAST SURGICAL HISTORY Procedure Laterality Date PARTIAL SPLENECTOMY PAST SURGICAL HISTORY OF 1973 Splenectomy [place] [facility] post trauma MEDICATIONS and ALLERGIES were [...] 5 Biceps 5 5 Triceps 5 5 Community Advocate 5 5 Dorsal interossei 5 5 Lower [...] D supplementation Follow-up: In [address] [facility] I spent a total of 30 minutes on the date of the service which included preparing to see the patient, [id number] patient care, completing clinical documentation, obtaining and/or reviewing separately obtained history, performing a medically appropriate examination, counseling and educating the pat ient/family/caregiver, ordering medications, tests, or procedures, and communicating results to thepatient/family/caregiver. Tello Slaughter PA-C The chart was reviewed for possible participation in the following studies:None documented in this encounterKettering [facility]02-07-2023 History of Present illness Narrative* Eden Arredondo [...] chart. Isaías Barillas APRN.SHIRA documented in this encounterKettering Health [facility]01-06-2023 Miscellaneous Notes* Telephone Encounter - Kristy So LPN - 04/19/2022 10:52 AM EST Faxed Rx referral [facility] [phone] 04/19/2021. Kristy So LPN * Telephone Encounter - Dianne Leigh PA-C - 04/19/2022 10:31 AM EST Referral was printed and will be faxed. * Telephone Encounter - Amy Gibbs - 04/19/2022 9:18 AM EST Patient was referred to an outside Dermatology provider in October 2021. Patient returned office call and would like a referral sent to Dr. Mateo Bautista with [facility]. Please fax to [phone]. Patient states he had been seen by Dr. Cristel Salas who was not able to help patient. documented in this encounterKettering Health [facility]12-21-2022 History of Present illness Narrative* Raymon Simon MD, PhD - 04/03/2022 3:32 PM EST [facility] Patient Name: Juanita [...] Zonegran initiation. Since he had been on [id number] mg bid, he had another seizure while [...] thought to be shingles. PREVIOUS EVALUATIONS: EEG ([facility], 05/2009) Intermittent Slow, Regional Left fronto-temporal EEG ([facility], 11/27/2011): 1 Valdo, Regional Left frontotemporal 2 Intermittent Slow, Regional Left frontotemporal Epilepsy risk factors and/or co-morbidities (-) Brain Tumor (-) ERP IMPLEMENTATION CONSULTANT Infections (-) Developmental Delay (-) Family history [...] - Seizure risk factors: Brain Tumor No ERP IMPLEMENTATION CONSULTANT Infections No Developmental Delay No Family history [...] Diagnosis Date Leptospirosis ~1991 MS (multiple sclerosis) ([facility]) 2006 Seizures ([facility]) PAST SURGICAL HISTORY Procedure Laterality Date PARTIAL SPLENECTOMY PAST SURGICAL HISTORY OF 1972 Splenectomy [place] [facility] post trauma FAMILY HISTORY Problem Relation [...] Simon MD PhD Staff, Epilepsy Center [facility] [place] documented in this encounterKettering Health [facility]12-17-2022 NoteHNO ID: [id number] Author: Kailey Lebron, PT, DPT Service: ? Author Type: Physical Therapist Type: Progress Notes Filed: 03/30/2022 9:19 AM Note Text: 03/30/[address] [facility] PHYSICAL THERAPY DISCONTINUANCE [...] scheduled additional follow-up appointments. Kailey Lebron, PT, DPFayette County Memorial [id number] Miscellaneous Notes* Telephone Encounter - Elisha Anand - 02/14/2022 10:28 AM EDT Received lab results from [facility]. Placed in provider's inbox for review. Route to MA scanning. documented in this encounterKettering Health [facility]10-21-2022 Miscellaneous Notes* Telephone Encounter - Sara Madrigal LPN - 02/01/2022 9:30 AM EDT Received 02/01/2022 from [facility]. Placed in provider's inbox for review. Route to MA for scanning documented in this encounterKettering Health [facility]ble10-18-2022 Miscellaneous Notes* Telephone Encounter - Elisha Anand - 01/29/2022 2:50 PM EDT Received labs from [facility]. Placed in provider's inbox for review. Route to MA scanning. documented in this encounterKettering Health [facility]10-06-2022 NoteHNO ID: [id number] Author: Kailey Lebron, PT, DPT Service: ? [...] last here. NO falls. 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 Pain: Pain Pain Level: 0 Post Treatment [...] Time Minutes (timed/untimed): 38 Kailey Lebron PT, [facility]10-06-2022 History of Present illness Narrative* Kailey Lebron [...] last here. NO falls. 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 Pain: Pain Pain Level: 0 Post Treatment [...] Kailey Lebron PT, DPT documented in this encounterKettering Health [facility]09-30-2022 NoteHNO ID: [id number] Author: Kailey Lebron PT, DPT Service: ? [...] Patient to be seen for Therapeutic exercise (15017);Neuromuscular re-education (43118);Manual therapy (55997);Therapeutic activities (47895);Self-intermediate management (88248);Gait Training (00176);Patient/Family/Caregiver Education PLAN FOR NEXT VISIT: R LE [...] Dorsiflexion (L4): 4+/5 R (more content not included)...[facility] [id number] History of Present illness Narrative* Kailey Lebron, [...] Patient to be seen for Therapeutic exercise (15178);Neuromuscular re-education (17011);Manual therapy (21977);Therapeutic activities (93222);Self-intermediate management (68225);Gait Training (18363);Patient/Family/Caregiver Education PLAN FOR NEXT VISIT: R LE [...] from floor : 4 - Able to hand picker object safely and easily Looking over [...] Kailey Lebron PT DPT documented in this encounterKettering Health [facility]ble09-27-2022 Instructions* Patient Instructions* Tello Slaughter PA-C - 01/08/2022 2:10 PM EDT Skin - Pityriasis versicolor or tinea versicolor? documented in this encounterKettering Health [facility]ble09-27-2022 History of Present illness Narrative* Tello Slaughter PA-C - 01/08/2022 1:51 PM EDT Images from the original note were not included. [facility] FOLLOWUP/ESTABLISHED PATIENT VISIT Principal [...] Retired after 34 years Will go to [place] for a month in May ([place]) Skin discoloration on forearms and hands - started about 2-3 weeks ago - did blood test and rigoberto - Cristel Lilly (derm) - at first it itched but not currently Denies new MS symptoms Baclofen helps at bedtime when takes - Leg aches at night sometimes - leg cramp. In thigh [facility] SUBJECTIVE & REVIEW OF SYSTEMS: Neuro-QoL Functions (higher=better functioning) Flowsheet [facility] Office Visit from 01/08/[address] [facility] Office Visit from 07/04/[address] [facility] Appointment from 06/14/[address] [facility] Upper Extremity Domain T Score 46 49 39 Lower Extremity Domain T Score 37 37 37 Cognitive Function Domain T Score 49 46 48 Positive Affect Well Being T Score -- -- -- Ability To Participate In Social Roles T Score 42 50 44 Satisfaction With Social Roles T Score 45 44 49 Neuro-QoL Symptoms (higher=worse symptoms) Flowsheet [facility] Office Visit from 01/08/[address] [facility] Office Visit from 07/04/[address] [facility] Appointment from 06/14/[address] [facility] Sleep Domain T Score 48 47 46 Fatigue Domain T Score 49 50 52 Anxiety Domain T Score 46 41 47 Depression Domain T Score 48 47 50 Stigma Domain T Score 45 37 54 Emotional Behavior Dyscontrol T Score -- -- -- *NeuroQoL is a multi-domain patient-reported quality of life questionnaire. PHQ-9 [facility] Office Visit from 01/08/[address] [facility] Office Visit from 07/04/[address] [facility] PHQ-9 Score 0 0 *PHQ-9 is a questionnaire for depressive symptoms, with scores 0-4 indicating none, 5-9 mild, 10-14moderate, 15-19 moderately severe, and 20-27 severe symptoms. [facility]OMIS[facility]10 [facility] from [facility]/08[facility] [facility] OT/PT/Speech Visit from 10/11/2021 in [facility] Outpatient Physical Therapy Global Physical Health [...] Diagnosis Date Leptospirosis ~1991 MS (multiple sclerosis) ([facility]) 2007 Seizures (HCC) PAST SURGICAL HISTORY Procedure Laterality Date PARTIAL SPLENECTOMY PAST SURGICAL HISTORY OF 1972 Splenectomy [place] [facility] post trauma MEDICATIONS and ALLERGIES were [...] 5 Biceps 5 5 Triceps 5 5 Community Advocate 5 5 Dorsal interossei 5 5 Lower [...] and Stretching Follow-up: In 6-[address] [facility] I spent a total of 35 minutes on the date of the service which included preparing to see the patient, havt-gj-hqqt patient care, completing clinical documentation, obtaining and/or reviewing separately obtained history, performing a medically appropriate examination, counseling and educating the pat ient/family/caregiver, ordering medications, tests, or procedures, and communicating results to thepatient/family/caregiver. Tello Slaughter PA-C The chart was reviewed for possible participation in the following studies:None documented in this encounterKettering Health [facility]09-22-2022 History of Present illness Narrative* Sophia Marshall Sec - 01/03/2022 10:15 AM EDT Requested by: Received fax from pharmacy Medication Requested: Dimethyl Fumarate 240 mg. [email or web address] PA phone #: Patient ID#: [phone] [id number] [phone] [id number] Faxed over completed PA Form along with last office note to fax #[phone]. APPROVED from 01/03/2022 thru 01/03/2023, [place]# [place] XYDO [phone] . documented in this encounterKettering Health [facility]09-15-2022 Miscellaneous Notes* Telephone Encounter - Kj Godfrey [...] he comes in for upcoming appointment on 01[facility]22[facility] lab hours are now Mon- Fri [...] : 01/08/2022 Sophia Johnson documented in this encounterKettering Health [facility]09-12-2022 History of Present illness Narrative* Bev Cartwright [...] 24, 2021 11:47 AM documented in this encounterKettering Health [facility]ble07-27-2022 Miscellaneous Notes* Telephone Encounter - Tello Slaughter [...] 1 TABLET BY MOUTH EVERYDAY AT BEDTIME TROI: Yes DX : Patient last seen: 07/04/2021 Next Appointment : 01/08/2022 Sophia Johnson documented in this encounterKettering Health [facility]ble07-22-2022 History of Present illness Narrative* Dianne Leigh PA-C - 11/02/2021 10:33 AM EDT Images from the original note were not included. This note was created using [employer]. Subjective Juanita Jay is a 66 year [...] Diagnosis Date Leptospirosis ~1991 MS (multiple sclerosis) ([facility]) 2006 Seizures ([facility]) Current Outpatient Medications Medication Sig Dispense Refill [...] SPLENECTOMY PAST SURGICAL HISTORY OF 1972 Splenectomy [place] [facility] post trauma FAMILY HISTORY Problem Relation [...] follow-up with dermatology. [facility] referral to [facility]. [facility] to [facility]. - CONSULT TO DERMATOLOGY Dianne Leigh PA-C documented in this encounterKettering Health [facility]ble07-21-2022 NoteHNO ID: [id number] Author: Kailey Lebron PT, LUTHER Service: ? [...] Time Minutes (timed/untimed): 41 Kailey Lebron PT, AMADOUSumma Health Barberton [id number] History of Present illness Narrative* Kailey Lebron [...] Kailey Lebron PT, DPT documented in this encounterKettering Health [facility]07-13-2022 NoteHNO ID: [id number] Author: Kailey Lebron PT, DPT Service: ? [...] Patient to be seen for Therapeutic exercise (60743);Neuromuscular re-education (20768);Manual therapy (11567);Therapeutic activities (22466);Self-intermediate management (24574);Gait Training (52446);Patient/Family/Caregiver Education PLAN FOR NEXT VISIT: Further standing [...] (catch and release a (more content not included)...[facility] HospitalItgwtzeu10-32-1838 History of Present illness Narrative* Kailey Lebron, [...] Patient to be seen for Therapeutic exercise (39508);Neuromuscular re-education (32332);Manual therapy (77953);Therapeutic activities (41056);Self-intermediate management (74275);Gait Training (32562);Patient/Family/Caregiver Education PLAN FOR NEXT VISIT: Further standing [...] from floor : 4 - Able to hand picker object safely and easily Looking over [...] care. Neuromuscular Re-Education: 2: Outcomes completed 4: IXI-Play Balance: Postural Stability Training: holding midline target [...] Kailey Lebron PT, DPT [facility] NoteHNO ID: [id number] Author: Kailey Lebron PT, DPT Service: ? [...] next visit SUBJECTIVE: Patient Reason for Visit: Mancos really good after yesterdays session. Pain: Pain [...] Time Minutes (timed/untimed): 43 Kailey Lebron PT, REIDFayette [facility] [id number] History of Present illness Narrative* Kailey Lebron [...] next visit SUBJECTIVE: Patient Reason for Visit: Mancos really good after yesterdays session. Pain: Pain [...] Kailey Lebron PT, DPT documented in this encounterK[facility]-29-2022 NoteHNO ID: [id number] Author: Kailey Lebron PT, DPT Service: ? [...] Time Minutes (timed/untimed): 41 Kailey Lebron PT, REIDF[facility] [id number] History of Present illness Narrative* Kailey Lebron [...] Kailey Lebron, PT, DPT documented in this encounterK[facility]15-[facility]22 History of Present illness Narrative* Sophia Johnson - 09/26/2021 7:41 AM EDT Per patient request, mailed out 2 handicap placard scripts to patient as directed. documented in this encounterK[facility]06-09-2022 NoteHNO ID: [id number] Author: Kailey Lebron PT, DPT Service: ? [...] Time Minutes (timed/untimed): 42 Kailey Lebron PT, AMADOUSumma Health Barberton [id number] History of Present illness Narrative* Kailey Lebron [...] Kailey Lebron PT, DPT documented in this encounterK[facility]06-07-2022 NoteHNO ID: [id number] Author: Kailey Lebron, PT, DPT Service: ? [...] Patient to be seen for Therapeutic exercise (12683);Neuromuscular re-education (82713);Manual therapy (88442);Therapeutic activities (25737);Self-intermediate management (60488);Gait Training (14238);Patient/Family/Caregiver Education PLAN FOR NEXT VISIT: Further coordination, [...] OF FUNCTION: LE Flexibility (more content not included)...[facility] [id number] History of Present illness Narrative* Kailey Lebron, [...] Patient to be seen for Therapeutic exercise (68015);Neuromuscular re-education (20925);Manual therapy (08317);Therapeutic activities (42273);Self-intermediate management (75707);Gait Training (99141);Patient/Family/Caregiver Education PLAN FOR NEXT VISIT: Further coordination, [...] from floor : 4 - Able to hand picker object safely and easily Looking over [...] Kailey Lebron PT, DPT documented in this encounterK[facility]05-26-2022 NoteHNO ID: [id number] Author: Kailey Lebron PT, DPT Service: ? [...] Time Minutes (timed/untimed): 40 Kailey Lebron PT, DPFayette County Memorial [id number] NoteHNO ID: [id number] Author: Kailey Lebron PT, DPT Service: ? [...] Planned: 12 Planned Treatment Interventions: Therapeutic exercise (39142);Neuromuscular re-education (24243);Manual therapy (80481);Therapeutic activities (43417);Self-intermediate management (94884);Gait Training (93324);Patient/Family/Caregiver Education PLAN FOR NEXT VISIT: Review HEP [...] and notices a decline. Has access to [facility]. Patient Goals: "Keep my balance more." Functional [...] Percentile - - 6 (more content not included)...[facility] [id number] History of Present illness Narrative* Kailey Lebron, [...] Planned: 12 Planned Treatment Interventions: Therapeutic exercise (40716);Neuromuscular re- education (45454);Manual therapy (03674);Therapeutic activities (51818);Self- intermediate management (50218);Gait Training (78676);Patient/Family/Caregiver Education PLAN FOR NEXT VISIT: Review HEP [...] and notices a decline. Has access to [facility]. Patient Goals: "Keep my balance more." Functional [...] from floor : 3 - Able to hand picker object but needs supervision Looking over [...] Kailey Lebron PT, DPT documented in this encounterK[facility]04-11-2022 History of Present illness Narrative* Sara Barnett [...] 2021 TIME: 11:42 AM documented in this encounterK[facility]07-02-2021 History of Present illness Narrative* Marilyn Harvey [...] 13, 2020 8:21 AM documented in this encounterK[facility]03-04-2004 History of Past illness Narrative* Problem Noted Date Resolved Date Multiple sclerosis 06/16/2003 07/09/2007 documented as of this encounter (statuses as of 07/24/2021) [facility] of Past illness Narrative* Problem Noted Date Resolved Date Multiple sclerosis 06/16/2003 07/09/2007 documented as of this encounter (statuses as of 08/01/2021) [facility] of Past illness Narrative* Problem Noted Date Resolved Date Multiple sclerosis 06/16/2003 07/09/2007 documented as of this encounter (statuses as of 08/02/2021) [facility] note* Diagnosis Multiple sclerosis, relapsing-remitting (HCC) Multiple sclerosis [facility]* Diagnosis Leg weakness, bilateral- Primary Other musculoskeletal symptoms referable to limbs Multiple sclerosis (HCC) Multiple sclerosis Abnormality of gait Imbalance Abnormality of gait documented [facility]* Diagnosis Leg weakness, bilateral Other musculoskeletal symptoms referable to limbs Imbalance Abnormality of gait Abnormality of gait MS (multiple sclerosis) (HCC) Multiple sclerosis [facility]* Diagnosis Leg weakness, bilateral Other musculoskeletal symptoms referable to limbs Imbalance Abnormality of gait Abnormality of gait MS (multiple sclerosis) (HCC) Multiple sclerosis [facility]* Diagnosis Leg weakness, bilateral Other musculoskeletal symptoms referable to limbs Imbalance Abnormality of gait Abnormality of gait MS (multiple sclerosis) (HCC) Multiple sclerosis [facility]* Diagnosis Dermatitis- Primary Contact dermatitis and other eczema, due to unspecified cause documented [facility] this encounter [facility] noteNo assessment information availableWMiddletown Hospital Work Phone: Evaluation note* Diagnosis Multiple sclerosis (HCC)- Primary Multiple sclerosis [facility]* Diagnosis Seizure (HCC) Other convulsions Examination of participant in clinical trial Multiple sclerosis (HCC) Multiple sclerosis [facility]* Diagnosis MS (multiple sclerosis) (HCC)- Primary Multiple sclerosis Imbalance Abnormality of gait Abnormality of gait Leg weakness, bilateral Other musculoskeletal symptoms referable to limbs [facility]* Diagnosis MS (multiple sclerosis) (HCC)- Primary Multiple sclerosis Imbalance Abnormality of gait Abnormality of gait Leg weakness, bilateral Other musculoskeletal symptoms referable to limbs [facility]* Diagnosis Seizure (HCC) Other convulsions [facility]* Diagnosis Dermatitis- Primary Contact dermatitis and other eczema, due to unspecified cause [facility]* Diagnosis Right foot drop- Primary Other acquired deformity of ankle and foot Examination of participant in clinical trial Multiple sclerosis (HCC) Multiple sclerosis [facility]* Diagnosis Medication monitoring encounter- Primary Encounter for therapeutic drug monitoring documented in this encounter [facility] note* Diagnosis Laceration of left eyebrow, initial encounter- Primary Closed head injury, initial encounter Laceration of left eyebrow Closed head injury Head injury, unspecified documented in this encounter [facility] note* Diagnosis Multiple sclerosis (HCC)- Primary Multiple sclerosis documented in this encounter [facility] note* Diagnosis Seizure (HCC)- Primary Other convulsions [facility] encounter [facility]* Diagnosis Multiple sclerosis (HCC) Multiple sclerosis documented in this encounter [facility] note* Diagnosis Elbow injury, left, initial encounter [facility] this encounter [facility]* Diagnosis Examination of participant in clinical trial Multiple sclerosis (HCC) Multiple sclerosis documented in this encounter [facility] note* Diagnosis Multiple sclerosis (HCC)- Primary Multiple sclerosis Vitamin D deficiency Unspecified vitamin D deficiency [facility] encounter [facility]* Diagnosis Examination of participant in clinical trial Multiple sclerosis (HCC) Multiple sclerosis [facility] encounter [facility]* Diagnosis Examination of participant in clinical trial Multiple sclerosis (HCC) Multiple sclerosis documented in this encounter [facility] note* Diagnosis Multiple sclerosis (HCC)- Primary Multiple sclerosis Vitamin D deficiency Unspecified vitamin D deficiency Imbalance Abnormality of gait [facility] encounter [facility]* Diagnosis Multiple sclerosis (HCC) Multiple sclerosis Vitamin D deficiency Unspecified vitamin D deficiency [facility] encounter [facility]* Diagnosis Examination of participant in clinical trial Multiple sclerosis (HCC) Multiple sclerosis [facility] this encounter [facility]* Diagnosis Medicare annual wellness visit, initial- Primary Routine general medical examination at a health care facility Seizure (HCC) Other convulsions MS (multiple sclerosis) (HCC) Multiple sclerosis Balance problem Other symptoms involving nervous and musculoskeletal systems 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 x [...] unspecified cardiovascular conditions documented in this encounter [facility] course Narrative No data available for this section [facility] Discharge instructions No data available for this section [facility] Progress note No data available for this section [facility] Reason for referral (narrative)No reason for referral information availableWMiddletown Hospital Work Phone: Reason for visit Narrative* Diagnostic Procedure Only (Urgent) - Closed Specialty Diagnoses / Procedures Referred By Hiram t Referred To Contact XR IMAGING Diagnoses Shoulder injury, right, initial encounter Procedures XR SHOULDER GENERAL 3V OR MORE AP/TRUE AP/OTHER RIGHT RADEX SHOULDER COMPLETE MINIMUM 2 VIEWS Michael Rushing APRN.SPORTS MANAGER [address] [place] [address] Xr Imaging [place] [address] Referral ID Status Reason Start Date Expiration Date V isits Requested Visits Authorized [id number] Closed Auto-Generate d Referral 12/24/2021 01/23/2023 1 1 [facility] Reason for Referral Specialty Diagnoses / Procedures Referred By Hiram freeman Referred To Contact MR IMAGING Diagnoses Multiple sclerosis, relapsing-remitting (HCC) Procedures MRI BRAIN WO/W IVCON MRI BRAIN BRAIN STEM W/O W/CONTRAST MATERIAL Tello Slaughter PA-C [address] [facility] [place] [address] Mr Imaging Referral ID Status Reason Start Date Expiration Date V isits Requested Visits Authorized [id number] Closed Auto-Generate d Referral 07/04/2021 08/03/2022 1 1 Specialty Diagnoses / Procedures Referred By Hiram t Referred To Contact Dermatology Diagnoses Dermatitis Procedures CONSULT TO DERMATOLOGY Dianne Leigh PA-C [address] [place] [address] Referral ID Status Reason Start Date Expiration Date Visits Requested Visits Authorized [id number] Ref Not Required PCP Requested Referral 11/02/2021 11/02/2022 1 1 Specialty Diagnoses / Procedures Referred By Contac t Referred To Contact Diagnoses Dermatitis Procedures CONSULT TO DERMATOLOGY Dianne Leigh PA-C [address] [place] [address] Referral ID Status Reason Start Date Expiration Date V isits Requested Visits Authorized [id number] Closed PCP Requested Referral 04/19/2022 04/19/2023 1 1 Specialty Diagnoses / Procedures Referred By Contac t Referred To Contact MR IMAGING Diagnoses Multiple sclerosis (HCC) Procedures MRI BRAIN WO/W IVCON MRI BRAIN BRAIN STEM W/O W/CONTRAST MATERIAL Tello Slaughter PA-C [address] [place] [address] Mr Imaging Referral ID Status Reason Start Date Expiration Date Visits Requested Visits Authorized [id number] Pending Review Auto-Generat ed Referral 07/09/2022 08/08/2023 1 1 Specialty Diagnoses / Procedures Referred By Contac t Referred To Contact MR IMAGING Diagnoses Multiple sclerosis (HCC) Procedures MRI BRAIN WO/W IVCON MRI BRAIN BRAIN STEM W/O W/CONTRAST MATERIAL Tello Slaughter PA-C [address] [place] [address] Imaging [facility] Referral ID Status Reason Start Date Expiration Date V isits Requested Visits Authorized [id number] Closed Auto-Generate d Referral 07/09/2022 08/08/2023 1 1 Specialty Diagnoses / Procedures Referred By Contac t Referred To Contact Tello Slaughter PA-C [address] [place] [address] Referral ID Status Reason Start Date Expiration Date V isits Requested Visits Authorized [id number] Pending Review 1 1 Advance Directives No Advanced Directives Records FoundDocuments on File Type Date Recorded 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 No March 14, 2024 1:10am Living Will Yes April 14 1:09am Do you have a Healthcare Power of Equipment Service Technician? No April 14, 2024 1:09am Summary Purpose [...] or prosecute any alcohol or drug abuse patient.[facility]In the event this information is protected by the Federal Confidentiality of Alcohol and Drug Abuse Patient Records regulations: The Federal rules restrict any use of the information to criminally investigate or prosecute any alcohol or drug abuse patient.[facility]bleIn the event this information is protected by the Federal Confidentiality of Alcohol and Drug Abuse Patient Records regulations: The Federal rules restrict any use of the information to criminally investigate or prosecute any alcohol or drug abuse patient.[facility]bleIn the event this information is protected by the Federal Confidentiality of Alcohol and Drug Abuse Patient Records regulations: The Federal rules restrict any use of the information to criminally investigate or prosecute any alcohol or drug abuse patient.[facility]bleIn the event this information is protected by the Federal Confidentiality of Alcohol and Drug Abuse Patient Records regulations: The Federal rules restrict any use of the information to criminally investigate or prosecute any alcohol or drug abuse patient.[facility]bleIn the event this information is protected by the Federal Confidentiality of Alcohol and Drug Abuse Patient Records regulations: The Federal rules restrict any use of the information to criminally investigate or prosecute any alcohol or drug abuse patient.[facility]bleIn the event this information is protected by the Federal Confidentiality of Alcohol and Drug Abuse Patient Records regulations: The Federal rules restrict any use of the information to criminally investigate or prosecute any alcohol or drug abuse patient.[facility]bleIn the event this information is protected by the Federal Confidentiality of Alcohol and Drug Abuse Patient Records regulations: The Federal rules restrict any use of the information to criminally investigate or prosecute any alcohol or drug abuse patient.[facility]bleIn the event this information is protected by the Federal Confidentiality of Alcohol and Drug Abuse Patient Records regulations: The Federal rules restrict any use of the information to criminally investigate or prosecute any alcohol or drug abuse patient.[facility]bleIn the event this information is protected by the Federal Confidentiality of Alcohol and Drug Abuse Patient Records regulations: The Federal rules restrict any use of the information to criminally investigate or prosecute any alcohol or drug abuse patient.[facility]bleIn the event this information is protected by the Federal Confidentiality of Alcohol and Drug Abuse Patient Records regulations: The Federal rules restrict any use of the information to criminally investigate or prosecute any alcohol or drug abuse patient.[facility]bleIn the event this information is protected by the Federal Confidentiality of Alcohol and Drug Abuse Patient Records regulations: The Federal rules restrict any use of the information to criminally investigate or prosecute any alcohol or drug abuse patient.[facility]bleIn the event this information is protected by the Federal Confidentiality of Alcohol and Drug Abuse Patient Records regulations: The Federal rules restrict any use of the information to criminally investigate or prosecute any alcohol or drug abuse patient.[facility]bleIn the event this information is protected by the Federal Confidentiality of Alcohol and Drug Abuse Patient Records regulations: The Federal rules restrict any use of the information to criminally investigate or prosecute any alcohol or drug abuse patient.[facility]bleIn the event this information is protected by the Federal Confidentiality of Alcohol and Drug Abuse Patient Records regulations: The Federal rules restrict any use of the information to criminally investigate or prosecute any alcohol or drug abuse patient.[facility]bleIn the event this information is protected by the Federal Confidentiality of Alcohol and Drug Abuse Patient Records regulations: The Federal rules restrict any use of the information to criminally investigate or prosecute any alcohol or drug abuse patient.[facility]bleIn the event this information is protected by the Federal Confidentiality of Alcohol and Drug Abuse Patient Records regulations: The Federal rules restrict any use of the information to criminally investigate or prosecute any alcohol or drug abuse patient.[facility]bleIn the event this information is protected by the Federal Confidentiality of Alcohol and Drug Abuse Patient Records regulations: The Federal rules restrict any use of the information to criminally investigate or prosecute any alcohol or drug abuse patient.[facility]bleIn the event this information is protected by the Federal Confidentiality of Alcohol and Drug Abuse Patient Records regulations: The Federal rules restrict any use of the information to criminally investigate or prosecute any alcohol or drug abuse patient.[facility]bleIn the event this information is protected by the Federal Confidentiality of Alcohol and Drug Abuse Patient Records regulations: The Federal rules restrict any use of the information to criminally investigate or prosecute any alcohol or drug abuse patient.[facility]bleIn the event this information is protected by the Federal Confidentiality of Alcohol and Drug Abuse Patient Records regulations: The Federal rules restrict any use of the information to criminally investigate or prosecute any alcohol or drug abuse patient.[facility]bleIn the event this information is protected by the Federal Confidentiality of Alcohol and Drug Abuse Patient Records regulations: The Federal rules restrict any use of the information to criminally investigate or prosecute any alcohol or drug abuse patient.[facility]bleIn the event this information is protected by the Federal Confidentiality of Alcohol and Drug Abuse Patient Records regulations: The Federal rules restrict any use of the information to criminally investigate or prosecute any alcohol or drug abuse patient.[facility]bleIn the event this information is protected by the Federal Confidentiality of Alcohol and Drug Abuse Patient Records regulations: The Federal rules restrict any use of the information to criminally investigate or prosecute any alcohol or drug abuse patient.[facility]bleIn the event this information is protected by the Federal Confidentiality of Alcohol and Drug Abuse Patient Records regulations: The Federal rules restrict any use of the information to criminally investigate or prosecute any alcohol or drug abuse patient.[facility]bleIn the event this information is protected by the Federal Confidentiality of Alcohol and Drug Abuse Patient Records regulations: The Federal rules restrict any use of the information to criminally investigate or prosecute any alcohol or drug abuse patient.[facility]bleIn the event this information is protected by the Federal Confidentiality of Alcohol and Drug Abuse Patient Records regulations: The Federal rules restrict any use of the information to criminally investigate or prosecute any alcohol or drug abuse patient.[facility]bleIn the event this information is protected by the Federal Confidentiality of Alcohol and Drug Abuse Patient Records regulations: The Federal rules restrict any use of the information to criminally investigate or prosecute any alcohol or drug abuse patient.[facility]bleIn the event this information is protected by the Federal Confidentiality of Alcohol and Drug Abuse Patient Records regulations: The Federal rules restrict any use of the information to criminally investigate or prosecute any alcohol or drug abuse patient.[facility]bleIn the event this information is protected by the Federal Confidentiality of Alcohol and Drug Abuse Patient Records regulations: The Federal rules restrict any use of the information to criminally investigate or prosecute any alcohol or drug abuse patient.[facility]bleIn the event this information is protected by the Federal Confidentiality of Alcohol and Drug Abuse Patient Records regulations: The Federal rules restrict any use of the information to criminally investigate or prosecute any alcohol or drug abuse patient.[facility]bleIn the event this information is protected by the Federal Confidentiality of Alcohol and Drug Abuse Patient Records regulations: The Federal rules restrict any use of the information to criminally investigate or prosecute any alcohol or drug abuse patient.[facility]bleIn the event this information is protected by the Federal Confidentiality of Alcohol and Drug Abuse Patient Records regulations: The Federal rules restrict any use of the information to criminally investigate or prosecute any alcohol or drug abuse patient.[facility]bleIn the event this information is protected by the Federal Confidentiality of Alcohol and Drug Abuse Patient Records regulations: The Federal rules restrict any use of the information to criminally investigate or prosecute any alcohol or drug abuse patient.[facility]bleIn the event this information is protected by the Federal Confidentiality of Alcohol and Drug Abuse Patient Records regulations: The Federal rules restrict any use of the information to criminally investigate or prosecute any alcohol or drug abuse patient.[facility] PrebleIn the event this information is protected by the Federal Confidentiality of Alcohol and Drug Abuse Patient Records regulations: The Federal rules restrict any use of the information to criminally investigate or prosecute any alcohol or drug abuse patient.[facility] PrebleIn the event this information is protected by the Federal Confidentiality of Alcohol and Drug Abuse Patient Records regulations: The Federal rules restrict any use of the information to criminally investigate or prosecute any alcohol or drug abuse patient.[facility] PrebleIn the event this information is protected by the Federal Confidentiality of Alcohol and Drug Abuse Patient Records regulations: The Federal rules restrict any use of the information to criminally investigate or prosecute any alcohol or drug abuse patient.[facility] PrebleIn the event this information is protected by the Federal Confidentiality of Alcohol and Drug Abuse Patient Records regulations: The Federal rules restrict any use of the information to criminally investigate or prosecute any alcohol or drug abuse patient.[facility] PrebleIn the event this information is protected by the Federal Confidentiality of Alcohol and Drug Abuse Patient Records regulations: The Federal rules restrict any use of the information to criminally investigate or prosecute any alcohol or drug abuse patient.[facility] PrebleIn the event this information is protected by the Federal Confidentiality of Alcohol and Drug Abuse Patient Records regulations: The Federal rules restrict any use of the information to criminally investigate or prosecute any alcohol or drug abuse patient.[facility] PrebleIn the event this information is protected by the Federal Confidentiality of Alcohol and Drug Abuse Patient Records regulations: The Federal rules restrict any use of the information to criminally investigate or prosecute any alcohol or drug abuse patient.[facility]bleIn the event this information is protected by the Federal Confidentiality of Alcohol and Drug Abuse Patient Records regulations: The Federal rules restrict any use of the information to criminally investigate or prosecute any alcohol or drug abuse patient.[facility]bleIn the event this information is protected by the Federal Confidentiality of Alcohol and Drug Abuse Patient Records regulations: The Federal rules restrict any use of the information to criminally investigate or prosecute any alcohol or drug abuse patient.[facility]bleIn the event this information is protected by the Federal Confidentiality of Alcohol and Drug Abuse Patient Records regulations: The Federal rules restrict any use of the information to criminally investigate or prosecute any alcohol or drug abuse patient.[facility]bleIn the event this information is protected by the Federal Confidentiality of Alcohol and Drug Abuse Patient Records regulations: The Federal rules restrict any use of the information to criminally investigate or prosecute any alcohol or drug abuse patient.[facility]bleIn the event this information is protected by the Federal Confidentiality of Alcohol and Drug Abuse Patient Records regulations: The Federal rules restrict any use of the information to criminally investigate or prosecute any alcohol or drug abuse patient.[facility]bleIn the event this information is protected by the Federal Confidentiality of Alcohol and Drug Abuse Patient Records regulations: The Federal rules restrict any use of the information to criminally investigate or prosecute any alcohol or drug abuse patient.[facility]bleIn the event this information is protected by the Federal Confidentiality of Alcohol and Drug Abuse Patient Records regulations: The Federal rules restrict any use of the information to criminally investigate or prosecute any alcohol or drug abuse patient.[facility]bleIn the event this information is protected by the Federal Confidentiality of Alcohol and Drug Abuse Patient Records regulations: The Federal rules restrict any use of the information to criminally investigate or prosecute any alcohol or drug abuse patient.[facility]bleIn the event this information is protected by the Federal Confidentiality of Alcohol and Drug Abuse Patient Records regulations: The Federal rules restrict any use of the information to criminally investigate or prosecute any alcohol or drug abuse patient.[facility]bleIn the event this information is protected by the Federal Confidentiality of Alcohol and Drug Abuse Patient Records regulations: The Federal rules restrict any use of the information to criminally investigate or prosecute any alcohol or drug abuse patient.[facility]bleIn the event this information is protected by the Federal Confidentiality of Alcohol and Drug Abuse Patient Records regulations: The Federal rules restrict any use of the information to criminally investigate or prosecute any alcohol or drug abuse patient.[facility]bleIn the event this information is protected by the Federal Confidentiality of Alcohol and Drug Abuse Patient Records regulations: The Federal rules restrict any use of the information to criminally investigate or prosecute any alcohol or drug abuse patient.[facility]bleIn the event this information is protected by the Federal Confidentiality of Alcohol and Drug Abuse Patient Records regulations: The Federal rules restrict any use of the information to criminally investigate or prosecute any alcohol or drug abuse patient.[facility]bleIn the event this information is protected by the Federal Confidentiality of Alcohol and Drug Abuse Patient Records regulations: The Federal rules restrict any use of the information to criminally investigate or prosecute any alcohol or drug abuse patient.[facility]bleIn the event this information is protected by the Federal Confidentiality of Alcohol and Drug Abuse Patient Records regulations: The Federal rules restrict any use of the information to criminally investigate or prosecute any alcohol or drug abuse patient.[facility]bleIn the event this information is protected by the Federal Confidentiality of Alcohol and Drug Abuse Patient Records regulations: The Federal rules restrict any use of the information to criminally investigate or prosecute any alcohol or drug abuse patient.[facility]bleIn the event this information is protected by the Federal Confidentiality of Alcohol and Drug Abuse Patient Records regulations: The Federal rules restrict any use of the information to criminally investigate or prosecute any alcohol or drug abuse patient.[facility]bleIn the event this information is protected by the Federal Confidentiality of Alcohol and Drug Abuse Patient Records regulations: The Federal rules restrict any use of the information to criminally investigate or prosecute any alcohol or drug abuse patient.[facility]bleIn the event this information is protected by the Federal Confidentiality of Alcohol and Drug Abuse Patient Records regulations: The Federal rules restrict any use of the information to criminally investigate or prosecute any alcohol or drug abuse patient.[facility]bleIn the event this information is protected by the Federal Confidentiality of Alcohol and Drug Abuse Patient Records regulations: The Federal rules restrict any use of the information to criminally investigate or prosecute any alcohol or drug abuse patient.[facility]bleIn the event this information is protected by the Federal Confidentiality of Alcohol and Drug Abuse Patient Records regulations: The Federal rules restrict any use of the information to criminally investigate or prosecute any alcohol or drug abuse patient.[facility]bleIn the event this information is protected by the Federal Confidentiality of Alcohol and Drug Abuse Patient Records regulations: The Federal rules restrict any use of the information to criminally investigate or prosecute any alcohol or drug abuse patient.[facility]bleIn the event this information is protected by the Federal Confidentiality of Alcohol and Drug Abuse Patient Records regulations: The Federal rules restrict any use of the information to criminally investigate or prosecute any alcohol or drug abuse patient.[facility]bleIn the event this information is protected by the Federal Confidentiality of Alcohol and Drug Abuse Patient Records regulations: The Federal rules restrict any use of the information to criminally investigate or prosecute any alcohol or drug abuse patient.[facility]bleIn the event this information is protected by the Federal Confidentiality of Alcohol and Drug Abuse Patient Records regulations: The Federal rules restrict any use of the information to criminally investigate or prosecute any alcohol or drug abuse patient.[facility]bleIn the event this information is protected by the Federal Confidentiality of Alcohol and Drug Abuse Patient Records regulations: The Federal rules restrict any use of the information to criminally investigate or prosecute any alcohol or drug abuse patient.[facility]bleIn the event this information is protected by the Federal Confidentiality of Alcohol and Drug Abuse Patient Records regulations: The Federal rules restrict any use of the information to criminally investigate or prosecute any alcohol or drug abuse patient.[facility]bleIn the event this information is protected by the Federal Confidentiality of Alcohol and Drug Abuse Patient Records regulations: The Federal rules restrict any use of the information to criminally investigate or prosecute any alcohol or drug abuse patient.[facility]bleIn the event this information is protected by the Federal Confidentiality of Alcohol and Drug Abuse Patient Records regulations: The Federal rules restrict any use of the information to criminally investigate or prosecute any alcohol or drug abuse patient.[facility]bleIn the event this information is protected by the Federal Confidentiality of Alcohol and Drug Abuse Patient Records regulations: The Federal rules restrict any use of the information to criminally investigate or prosecute any alcohol or drug abuse patient.[facility]bleIn the event this information is protected by the Federal Confidentiality of Alcohol and Drug Abuse Patient Records regulations: The Federal rules restrict any use of the information to criminally investigate or prosecute any alcohol or drug abuse patient.[facility]bleIn the event this information is protected by the Federal Confidentiality of Alcohol and Drug Abuse Patient Records regulations: The Federal rules restrict any use of the information to criminally investigate or prosecute any alcohol or drug abuse patient.[facility]bleIn the event this information is protected by the Federal Confidentiality of Alcohol and Drug Abuse Patient Records regulations: The Federal rules restrict any use of the information to criminally investigate or prosecute any alcohol or drug abuse patient.[facility] Reason for Visit (unrecogniz ed section and content) Reason Comments Physical Therapy Specialty Diagnoses / Procedures Referred By Contac t Referred To Contact [facility] Diagnoses Multiple sclerosis (HCC) Procedures CONSULT TO PHYSICAL THERAPY PHYSICAL THERAPY EVALUATION HIGH COMPLEX 45 MINS Tello Slaughter PA-C [address] [place] [address] [facility] [place] [address] [place] [address] Referral ID Status Reason Start Date Expiration Date Visits Requested Visits Authorized [id number] Authorized OON/Self Pay Override 07/04/2021 07/04/2022 99 99 Reason Comments PT Progress Note Specialty Diagnoses / Procedures Referred By Hiram pete Referred To Contact [facility] IMAGING Diagnoses Multiple sclerosis, relapsing-remitting (HCC) Procedures MRI BRAIN WO/W IVCON MRI BRAIN BRAIN STEM W/O W/CONTRAST MATERIAL Tello Slaughter PA-C [address] [place] [address] Mr Imaging Referral ID Status Reason Start Date Expiration Date V isits Requested Visits Authorized [id number] Closed Auto-Generate d Referral 07/04/2021 08/03/2022 1 1 Reason Comments Refill Request Reason Comments PT Eval Patient Education Reason Comments Handicap Placard Script Reason Comments Rash x 3 weeks Reason Comments Medication Preauthorization Dimethyl Fum arate 240 mg. Reason Comments Established Patient Follow-Up Reason Comments Outside Labs Results [facility] Reason Comments Received Outside Medical Records [facility] Aldolase 01/28/2022 Reason Comments Outside Lab Results [facility] Reason Comments Follow Up Established Patient [...] STEM W/O W/CONTRAST MATERIAL Tello Slaughter PA-C [address] [place] [address] [place] [id number] Referral ID Status Reason Start Date Expiration Date V isits Requested Visits Authorized [id number] Closed Auto-Generate d Referral 07/09/2022 08/08/2023 1 [...] slaughter Reason Comments Received Outside Medical Records [facility] Car diology Reason Comments Received Outside Medical Records [facility] ED 11/20 Reason Comments Received Outside Medical Records [facility] Cardiac Cath Diagnostic 11/24/2023 Reason Comments Outside [id number] Ordered [facility] blood t ype Reason Comments Received Outside Medical Records [facility] Operative note 11/24/2023 [facility] X2 Reason Comments Received Outside Medical Records [facility] 01/02/24 Reason Comments Received Outside Medical Records [facility] Cardiothoracic Surgery Reason Comments Received Outside Medical Records [facility] Reason Comments Received Outside Medical Records [facility] Heart [facility] Visit summary 04/01/2024 hospital f/u Reason Onset Date Comments Refill Request 04/21/2024 Reason Onset Date Comments Refill Request 04/22/2024 Reason Onset Date Comments Population Health Navigation Outreach 06/02/2024 [facility] Reason Onset Date Comments Population Health Navigation Outreach 07/07/2024 [facility] Reason Comments Received Outside Medical Records [facility] lab Reason Comments Established Patient Follow-Up Reason Comments Lab Orders Reason Onset Date Comments Population Health Navigation Outreach 09/08/2024 [facility] Reason Onset Date Comments Population Health Navigation Outreach 09/30/2024 [facility] Reason Comments Medicare Wellness Exam Care Teams (unrecognized sec tion and content) Lamp Shade Sewer Relationship Specialty Start Date End Date Laverne Monroe MD [address] [place], [place] [address] PCP - General Family Practice 05/17/11 Lamp Shade Sewer Relationship Specialty Start Date End Date Laverne Monroe MD [address] [place], [place] [id number] PCP - General Family Practice 05/17/11 Lamp Shade Sewer Relationship Specialty Start Date End Date Laverne Monroe MD [address] [place], [place] [id number] PCP - General Family Practice 05/17/11 Lamp Shade Sewer Relationship Specialty Start Date End Date Laverne Monroe MD [address] [place] [address] PCP - General Family Practice 05/17/11 Lamp Shade Sewer Relationship Specialty Start Date End Date Laverne Monroe MD [address] [place] [address], [place] [address] PCP - General Family Practice 05/17/11 Lamp Shade Sewer Relationship Specialty Start Date End Date Laverne Monroe MD [address] [place] [address], [place] [address] PCP - General Family Practice 05/17/11 Lamp Shade Sewer Relationship Specialty Start Date End Date Laverne Monroe MD [address] [place] [address], [place] [address] PCP - General Family Practice 05/17/11 Lamp Shade Sewer Relationship Specialty Start Date End Date Laverne Monroe MD [address] [place] [address], [place] [address] PCP - General Family Practice 05/17/11 Lamp Shade Sewer Relationship Specialty Start Date End Date Laverne Monroe MD [address] [place] [address], [place] [address] PCP - General Family Practice 05/17/11 Lamp Shade Sewer Relationship Specialty Start Date End Date Laverne Monroe MD [address] [place] [address], [place] [address] PCP - General Family Practice 05/17/11 Lamp Shade Sewer Relationship Specialty Start Date End Date Laverne Monroe MD [address] [place] [address], [place] [address] PCP - General Family Medicine 05/17/11 Lamp Shade Sewer Relationship Specialty Start Date End Date Laverne Monroe MD [address] [place] [address], [place] [address] PCP - General Family Medicine 05/17/11 Lamp Shade Sewer Relationship Specialty Start Date End Date Laverne Monroe MD [address] [place] [address] PCP - General Family Medicine 05/17/11 Lamp Shade Sewer Relationship Specialty Start Date End Date Laverne Monroe MD [address] [place] [address] PCP - General Family Medicine 05/17/11 Lamp Shade Sewer Relationship Specialty Start Date End Date Laverne Monroe MD [address] [place] [address] PCP - General Family Medicine 05/17/11 Lamp Shade Sewer Relationship Specialty Start Date End Date Laverne Monroe MD [address] [place] [address] PCP - General Family Medicine 05/17/11 Lamp Shade Sewer Relationship Specialty Start Date End Date Laverne Monroe MD [address] [place] [address] PCP - General Family Medicine 05/17/11 Lamp Shade Sewer Relationship Specialty Start Date End Date Laverne Monroe MD [facility] [place] [address] PCP - General Family Medicine 05/17/11 Lamp Shade Sewer Relationship Specialty Start Date End Date Laverne Monroe MD [address] [place] [address] PCP - General Family Medicine 05/17/11 Lamp Shade Sewer Relationship Specialty Start Date End Date Jaylan Marquis [address] [place] [address] PCP - General 02/15/23 Lamp Shade Sewer Relationship Specialty Start Date End Date Laverne Monroe MD [address] [place] [address] [place] [address] PCP - General Family Medicine 10/09/23 Lamp Shade Sewer Relationship Specialty Start Date End Date Laverne Monroe MD [address] [facility] [place] [address] PCP - General Family Medicine 10/09/23 Lamp Shade Sewer Relationship Specialty [place] [address] [place] [address] PCP - General Family Medicine 05/17/11 06/03/22 Lamp Shade Sewer Relationship Specialty Start Date End Date Laverne Monroe MD [address] [facility] [place] [address] PCP - General Family Medicine 10/09/23 Lamp Shade Sewer Relationship Specialty Start Date End Date Laverne Monroe MD [address] [place] [address] PCP - General Family Medicine 05/17/11 06/03/22 Lamp Shade Sewer Relationship Specialty Start Date End Date Laverne Monroe MD [address] [place] [address] [place] [address] PCP - General Family Medicine 10/09/23 Lamp Shade Sewer Relationship Specialty Start Date End Date Laverne Monroe MD [address] [facility] [address] [place], [place] [id number] PCP - General Family Medicine 10/09/23 Lamp Shade Sewer Relationship Specialty Start Date End Date Laverne Monroe MD [address] [place] [address] [address] [place], [place] [address] PCP - General Family Medicine 10/09/23 Lamp Shade Sewer Relationship Specialty Start Date End Date Laverne Monroe MD [address] [facility] [address] [place], [place] [address] PCP - General Family Medicine 10/09/23 Lamp Shade Sewer Relationship Specialty Start Date End Date Laverne Monroe MD [address] [facility] [address] PCP - General Family Medicine 10/09/23 Isaías Doe APRN.SPORTS MANAGER [address] [facility] [address] Music Video Producer Internal Medicine 03/21/24 Lamp Shade Sewer Relationship Specialty Start Date End Date Laverne Monroe MD [address] [facility] [address] PCP - General Family Medicine 10/09/23 Isaías Doe APRN.SPORTS MANAGER [address] [facility] [address] [place], [place] [address] Music Video Producer Internal Medicine 03/21/24 Lamp Shade Sewer Relationship Specialty Start Date End Date Laverne Monroe MD [address] [facility] [address] PCP - General Family Medicine 10/09/23 Isaías Doe APRN.SPORTS MANAGER [address] [facility] [address] [place], [place] [address] [phone] Music Video Producer Internal Medicine 03/21/24 Lamp Shade Sewer Relationship Specialty Start Date End Date Laverne Monroe MD [address] [facility] [address] PCP - General Family Medicine 10/09/23 Isaías Doe JOURNEYMAN LEVEL ACOUSTIC ANALYST.SPORTS MANAGER [address] [facility] [address] Music Video Producer Internal Medicine 03/21/24 Lamp Shade Sewer Relationship Specialty Start Date End Date Laverne Monroe MD [address] [facility] [address] PCP - General Family Medicine 10/09/23 Isaías Doe JOURNEYMAN LEVEL ACOUSTIC ANALYST.SPORTS MANAGER [address] [facility] [address] Music Video Producer Internal Medicine 03/21/24 Lamp Shade Sewer Relationship Specialty Start Date End Date Laverne Monroe MD [address] [facility] [address] PCP - General Family Medicine 10/09/23 Isaías Doe, JOURNEYMAN LEVEL ACOUSTIC ANALYST.SPORTS MANAGER [address] [facility] [address] Music Video Producer Internal Medicine 03/21/24 Lamp Shade Sewer Relationship Specialty Start Date End Date Laverne Monroe MD [address] [facility] [address] PCP - General Family Medicine 10/09/23 Isaías Doe, JOURNEYMAN LEVEL ACOUSTIC ANALYST.SPORTS MANAGER [address] [facility] [address] Music Video Producer Internal Medicine 03/21/24 Lamp Shade Sewer Relationship Specialty Start Date End Date Laverne Monroe MD [address] [facility] [address] PCP - General Family Medicine 10/09/23 Isaías Doe JOURNEYMAN LEVEL ACOUSTIC ANALYST.SPORTS MANAGER [address] [facility] [address] [place], [place] [id number] Music Video Producer Internal Medicine 03/21/24 Team Status: Active Member [...] 2024 End: July 27, 2024 Zeferino Lizarraga VENDING TECHNICIAN, VENDING TECHNICIAN-C Attending Provider Active S tart: July 27, 2024 End: July 27, 2024 Zeferino Lizarraga VENDING TECHNICIAN, VENDING TECHNICIAN-C Referring Provider Active S tart: July 27, 2024 End: July 27, 2024 Lamp Shade Sewer Relationship Specialty Start Date End Date Laverne Monroe MD [address] [facility] [address] [place], [place] [address] PCP - General Family Medicine 10/09/23 Isaías Doe APRN.SPORTS MANAGER [address] [facility] [address] [place], [place] [address] Music Video Producer Internal Medicine 03/21/24 Lamp Shade Sewer Relationship Specialty Start Date End Date Laverne Monroe MD [address] [facility] [address] PCP - General Family Medicine 10/09/23 Isaías Doe APRN.SPORTS MANAGER [address] [facility] [address] Music Video Producer Internal Medicine 03/21/24 Lamp Shade Sewer Relationship Specialty Start Date End Date Laverne Monroe MD [address] [facility] [address] PCP - General Family Medicine 10/09/23 Isaías Doe APRN.SPORTS MANAGER [address] [facility] [address] Music Video Producer Internal Medicine 03/21/24 Lamp Shade Sewer Relationship Specialty Start Date End Date Laverne Monroe MD [address] [facility] [address] PCP - General Family Medicine 10/09/23 Isaías Doe JOURNEYMAN LEVEL ACOUSTIC ANALYST.SPORTS MANAGER [address] [facility] [address] Music Video Producer Internal Medicine 03/21/24 Lamp Shade Sewer Relationship Specialty Start Date End Date Laverne Monroe MD [address] [facility] [address] PCP - General Family Medicine 10/09/23 Isaías Doe JOURNEYMAN LEVEL ACOUSTIC ANALYST.SPORTS MANAGER [address] [facility] [address] [place], [place] [address] Music Video Producer Internal Medicine 03/21/24 Lamp Shade Sewer Relationship Specialty Start Date End Date Laverne Monroe MD [address] [facility] [address] [place], [place] [address] PCP - General Family Medicine 10/09/23 Isaías Doe APRN.SPORTS MANAGER [address] [place], [place] [id number] Music Video Producer Internal Medicine 03/21/24 Lamp Shade Sewer Relationship Specialty Start Date End Date Laverne Monroe MD [address] [address] [place], [place] [id number] PCP - General Family Medicine 10/09/23 Isaías Doe JOURNEYMAN LEVEL ACOUSTIC ANALYST.SPORTS MANAGER [address] [address] [address] [place], [place] [id number] Music Video Producer Internal Medicine 03/21/24 Lamp Shade Sewer Relationship Specialty Start Date End Date Laveren Monroe MD [address] [facility] [address] [place], [place] [id number] PCP - General Family Medicine 10/09/23 Isaías Doe, JOURNEYMAN LEVEL ACOUSTIC ANALYST.SPORTS MANAGER [address] [address] [address] [place], [place] [id number] Music Video Producer Internal Medicine 03/21/24 Lamp Shade Sewer Relationship Specialty Start Date End Date Laverne Monroe MD [address] [facility] [address] [address] [place], [place] [id number] PCP - General Family Medicine 10/09/23 Isaías Doe, JOURNEYMAN LEVEL ACOUSTIC ANALYST.SPORTS MANAGER [address] [facility] [address] [place], [place] [id number] Music Video Producer Internal Medicine 03/21/24 Lamp Shade Sewer Relationship Specialty Start Date End Date Laverne Monroe MD [address] [facility] [address] [address] [place], [place] [phone] PCP - General Family Medicine 10/09/23 Isaías Doe APRN.SPORTS MANAGER [address] [id number] Music Video Producer Internal Medicine 03/21/24 Goals (unrecognized section and [...] section and content) DATE CREATED AUTHOR 04/05/2022 [facility] DATE CREATED AUTHOR AUTHOR'S ORGANIZ ATION 02/16/2023 [facility] DATE CREATED AUTHOR AUTHOR'S ORGANIZ ATION 12/05/2023 [facility] ([place]) DATE CREATED AUTHOR AUTHOR'S ORGANIZ ATION 01/08/2024 [facility] DATE CREATED AUTHOR AUTHOR'S ORGANIZ ATION 08/05/2024 [facility] DATE CREATED AUTHOR AUTHOR'S ORGANIZ ATION 01/06/2025 [facility] Scheduled Active and Recently Administ ered Medications [...] BE BASED ON THE PRIMARY CLINICAL RECORDS. [facility] [employer] [facility]. provides no warranty or guarantee of the accuracy or completeness of information in this document.
[2025-02-01 15:41] LABS: Troponin T High Sens 4 HR 22 ng/L (<=22)
[2025-02-01] MEDS: 0.9% Saline Lock 10 ML Syringe IV (19:48)
--- NOTE | 2025-02-01 19:49 | EX.PCM.CON.G ---
HPI Consult Data Date of Consult: 02/01/25 HPI Narrative Reason for Consultation: GI bleed HPI Narrative: JUANITA JAY, is a 69-year-old who presented to the ER with presyncopal symptoms. His past medical history is positive for CAD status post CABG x 2, multiple sclerosis, seizure disorder. He spends time in [place] during the winter and while in [place] last May he had an upper GI bleed. It was suspected be secondary to antiplatelet therapy and ibuprofen. He was placed on PPI therapy afterwards. Currently he is in the ICU due to his presyncopal symptoms. He had a CT of the brain which was unremarkable. He was seen by neurology who recommended MRI to evaluate for acute CVA plus or minus possible MS flare. His multiple sclerosis has been under control. While being evaluated he had a large bowel movement which was dark. His hemoglobin was at 10 and went down to 8.2 and currently is at 7.5. He was started on a Protonix drip. I was consulted for upper GI bleed management. ] [facility] Medical History Postoperative atrial fibrillation Leptospirosis Atherosclerosis of coronary artery of [place] heart without angina pectoris Seizures Multiple sclerosis Home Medications Medication Instructions Recorded Last Taken Type citalopram 40 mg tablet 40 mg PO DAILY depression 11/21/23 02/01/25 History dimethyl fumarate 240 mg 240 mg PO BID ms 11/21/23 02/01/25 History capsule,delayed release zonisamide 100 mg capsule 300 mg PO QHS seizures 11/21/23 01/31/25 History zonisamide 100 mg capsule 200 mg PO QDAY seizures 04/01/24 02/01/25 History tizanidine 2 mg capsule 2 mg PO QHS leg pain 08/03/24 01/31/25 History atorvastatin 80 mg tablet 80 mg PO QHS #90 tabs 01/18/25 01/31/25 Rx clopidogrel 75 mg tablet (Plavix) 75 mg PO QDAY #90 tabs 01/18/25 02/01/25 Rx Allergy/AdvReac Type Severity Reaction Status Date / Time No Known Allergies Allergy Verified 02/01/25 10:26 Family History Mother Multiple myeloma Father CVA (cerebral vascular accident) Brother CAD (coronary artery disease) History of coronary artery bypass surgery Surgical History History of tonsillectomy History of total splenectomy History of left heart catheterization (~11/24/23) History of coronary artery bypass surgery (~11/26/23) Social History household members: spouse Smoking Status: Former smoker how long ago did patient quit smokin years ago alcohol intake: current alcohol intake frequency: holidays/special occasions only substance use type: does not use caffeine: Yes Type: carbonated beverages Number of servings: 1 and coffee Number of servings: 1 ROS Constitutional Constitutional: Denies fatigue, fever(s), poor appetite, weight gain or weight loss Gastrointestinal Gastrointestinal: Denies belching, bloating, change in bowel habits, change in stool character, chewing difficulty, coffee ground emesis, constipation, cramping, diarrhea, dyspepsia, dysphagia, early satiety, excessive flatus, fecal incontinence, heartburn, hematemesis, hematochezia, hemorrhoids, loose stools, melena, nausea, odynophagia, rectal bleeding, tenesmus, vomiting or weight changes Physical Exam Const alert, oriented x3, no apparent distress and healthy appearing General Appearance: cooperative GI normal to inspection, nondistended, normoactive bowel sounds, soft to palpation, non-tender and non-distended Percussion: normal to percussion Rectal Exam: deferred Lab / Micro Data 02/01/25 13:24 02/01/25 10:52 Labs: Laboratory Results - last 24 hr 02/01/25 10:44: POC Glucose 111 H 02/01/25 10:52: WBC 15.7 H, RBC 3.21 L, Hgb 8.2 L, Hct 26.6 L, MCV 82.9, MCH 25.5 L, MCHC 30.8 L, RDW Std Deviation 62.4 H, RDW Coeff of Micheal 20.6 H, Plt Count 319, MPV 9.8, Immature Gran % (Auto) 0.400, Neut % (Auto) 91.9 H, Lymph % (Auto) 3.6 L, [place] % (Auto) 3.8, Eos % (Auto) 0.0, Baso % (Auto) 0.3, Absolute Neuts (auto) 14.4 H, Absolute Lymphs (auto) 0.57 L, Nucleated RBC % 0, RBC Morphology N CYTIC, Acanthocytes (Spur) 1+, Schistocytes 1+, PT 15.9 H, INR 1.2, APTT 21.8 L, Sodium 134, Potassium 4.9, Chloride 107, Carbon Dioxide 18.0 L, Anion Gap 9, BUN 65 H, Creatinine 0.88, Estim Creat Clear Calc 86.96, Est GFR (MDRD) Non-Af 93, BUN/Creatinine Ratio 74.3 H, Glucose 123 H, Hemoglobin A1c 6.0 H, Calcium 7.9, Iron 35 L, TIBC 318, Iron Saturation 10.9, Unsaturated IBC 283, Ferritin 20 L, Troponin T High Sens 11, TSH 0.597 02/01/25 12:50: Troponin T Hi Sens 2 Hr 15 02/01/25 13:24: Hgb 7.5 L, Hct 25.1 L, Blood Type B NEGATIVE, Antibody Screen NEGATIVE, Crossmatch See Detail 02/01/25 14:48: Troponin T Hi Sens 4Hr 22 Micro: Microbiology 02/01/25 13:24 Stool Stool Occult Blood (GJ) - Final Occult Blood Positive Imaging Radiology Impression Brain CT 02/01/25 10:40 IMPRESSION: CHRONIC CHANGES. NO ACUTE FINDINGS. Red Alert: Chronic changes The critical findings in the findings and impression above were relayed directly by me by telephone to Felice Mcclain on 02/01/2025 at 10:53 am with readback verification. Reading Location: [facility] Head/Neck CTA 02/01/25 10:41 IMPRESSION: Mild degree of plaque calcification at the bifurcations bilaterally causing less than 50% luminal narrowing. Reading Location: [facility] Assessment & Plan Assessment/Plan (1) Upper GI bleed: (2) Acute blood loss anemia: (3) Anemia: PLAN: Assessment This is a 69-year-old male with multiple comorbidities, including CAD and antiplatelet use, presenting with significant anemia and melena concerning for an active upper GI bleed. The likely etiology of the bleeding is peptic ulcer disease, given his history of CAD requiring antiplatelet therapy and previous use of ibuprofen, both major risk factors for UGIB. His prior GI bleed also points to this increased risk. The patient's presyncopal symptoms are most likely a result of hypovolemia secondary to the acute blood loss. The hemoglobin drop from 10 g/dL to 7.5 g/dL represents an acute hemorrhage and requires prompt resuscitation and diagnostic evaluation. The Protonix drip is an appropriate initial pharmacologic therapy for suspected UGIB. Plan Resuscitation & Monitoring: Continue monitoring in the ICU setting. Continue Protonix drip for gastric acid suppression. Transfusion: Transfuse packed red blood cells (PRBCs) to maintain a hemoglobin goal of >7 g/dL. Goal may be >8 g/dL given his significant cardiovascular history. Hemodynamics: Close monitoring of vital signs and hemodynamic stability. Diagnosis & Management: Esophagogastroduodenoscopy : Proceed with urgent EGD to identify the bleeding source and provide endoscopic therapy as needed. N.p.o. after midnight for EGD in the a.m. Risk Factor Modification: Antiplatelet/Anticoagulation: Review and hold antiplatelet therapy in consultation with Cardiology, with a plan for early re-initiation once hemostasis is secured. NSAIDs: Avoid all NSAIDs, including ibuprofen. H. Pylori: Test for H. pylori and treat if positive to reduce future ulcer risk. Charges/Coding Visit Charges Inpatient E&M: 82952 Init Hosp L3
[2025-02-01 20:32] LABS: Hematocrit 27.0 % (40-54); Hemoglobin 8.6 g/dL (13.0-16.5)
--- NOTE | 2025-02-01 21:34 | PCM.HOSP.N ---
Hospitalist Note Pt c/o BLE pain, states that he usually takes 2mg of tizanidine QHS for sleep and pain. Pt has received 1unit PRBC for acute GIB loss. Nrsg notes that pt has had at least 2 syncopal episodes today, one at home and one in ER, both while trying to walk to bathroom. Post transfusion, orthostatic BPs ordered and are negative with noted improvement from volume repletion. Tizanidine 2mg QHS ordered.
[2025-02-01] MEDS: ZONISAMIDE 100 MG CAPSULE 300 MG PO (21:36)
[2025-02-02] VITALS (33 sets, daily range): BP systolic 80–117; BP diastolic 49–76; PULSE 64–100; RESP 12–23; TEMP 36.4–38; O2SAT 95–100; BMI 24.1
[2025-02-02] MEDS: Pantoprazole Sodium 80 MG in 0.9% Normal Saline (100mL Bag) 80 ML 10 MG CONT INF ×2 (01:52→10:49)
[2025-02-02 05:33] LABS: Hematocrit 23.7 % (40-54); Hemoglobin 7.4 g/dL (13.0-16.5); Mean Corp Hgb Conc 31.2 g/dL (32-36); Mean Corpuscular Volume 82.0 fL (80-94); Mean Platelet Vol. 10.4 fl (6.2-12.0); POSITIVE MORPHOLOGY YES; Platelet Count 262 K/mm3 (150-450); RBC Distribution Width CV 20.2 % (11.6-14.6); RBC Distribution Width SD 60.0 fl (35.1-43.9); Red Blood Count 2.89 M/mm3 (4.6-6.2); White Blood Count 12.6 K/mm3 (4.4-11.0)
[2025-02-02 05:37] LABS: Scan Indicated on CBC? Y/N YES- FLAGS NOTED
[2025-02-02 06:00] LABS: Anion Gap 9 (5-15); BUN 50 mg/dL (4-19); BUN/Creat Ratio 53.1 RATIO (10-20); Calcium,Total 8.0 mg/dL (7.6-11.0); Carbon Dioxide 16.4 mmol/L (21.0-32.0); Chloride 115 mmol/L (98-108); Estimated Creatinine Clearance 82.28 ml/min (50-250); Glucose 94 mg/dL (70-99); Potassium 3.8 mmol/L (3.3-5.1)
[2025-02-02] MEDS: ZONISAMIDE 100 MG CAPSULE 200 MG PO (08:41)
--- NOTE | 2025-02-02 10:52 | CASEMGMT ---
Social Work SW spoke with RN who states stroke workup cancelled, therefore SW did not complete PHQ9. WILIAN Oakley
--- NOTE | 2025-02-02 11:20 | PN.GI_ITS ---
Subjective Subjective 69-year-old male with history of MS (on dimethyl fumarate), CAD (post CABG x 2), and seizure disorder presented with near syncope and black stools. He reports taking Excedrin once daily for a few days prior to admission for headaches. He is on clopidogrel for CAD. No bowel movement today. Denies nausea, vomiting, hematemesis, HB, or prior melena before admission. No history of colonoscopy or family history of colon cancer. He previously had an UGIB this past May, suspected secondary to antiplatelet therapy and NSAID use, and was treated with a PPI, which he discontinued after the initial course. Objective Data Objective Data Vital Signs: Vital Signs Temp Pulse Resp BP Pulse Ox O2 Del Method 97.5 F L 94 15 114/65 100 Room Air 02/02/25 08:00 02/02/25 10:00 02/02/25 10:00 02/02/25 10:00 02/02/25 10:00 02/02/25 10:00 Oxygen Delivery Method Room Air Weight: 178 lb 3.2 oz Body Mass Index (BMI) 24.1 Intake & Output: Intake and Output for Last 24 Hours 01/31/25 02/01/25 02/02/25 23:59 23:59 23:59 Intake Total 1535 / 1535 189.5 / 189.5 Output Total 1534 / 1534 700 / 700 Balance -510.5 / -510.5 Lab / Micro Data Attestation: I reviewed the patient's lab results. 02/02/25 11:55 02/02/25 05:25 Labs: Laboratory Results - last 24 hr 02/01/25 10:52: RBC Morphology N CYTIC, Acanthocytes (Spur) 1+, Schistocytes 1+, Sodium 134, Potassium 4.9, Chloride 107, Carbon Dioxide 18.0 L, Anion Gap 9, BUN 65 H, Creatinine 0.88, Estim Creat Clear Calc 86.96, Est GFR (MDRD) Non-Af 93, B UN/Creatinine Ratio 74.3 H, Glucose 123 H, Hemoglobin A1c 6.0 H, Calcium 7.9, I santos 35 L, TIBC 318, Iron Saturation 10.9, Unsaturated IBC 283, Ferritin 20 L, Troponin T High Sens 11, TSH 0.597 02/01/25 12:50: Troponin T Hi Sens 2 Hr 15 02/01/25 13:24: Hgb 7.5 L, Hct 25.1 L, Blood Type B NEGATIVE, Antibody Screen NEGATIVE, Crossmatch See Detail 02/01/25 14:48: Troponin T Hi Sens 4Hr 22 02/01/25 19:50: Hgb 8.6 L, Hct 27.0 L 02/02/25 05:25: WBC 12.6 H, RBC 2.89 L, Hgb 7.4 L, Hct 23.7 L, MCV 82.0, MCH 25.6 L, MCHC 31.2 L, RDW Std Deviation 60.0 H, RDW Coeff of Micheal 20.2 H, Plt Count 262, MPV 10.4, Differential Comment , Sodium 141, Potassium 3.8, Chloride 115 H, Carbon Dioxide 16.4 L, Anion Gap 9, BUN 50 H, Creatinine 0.93, Estim Creat Clear Calc 82.28, Est GFR (MDRD) Non-Af 89, BUN/Creatinine Ratio 53.1 H, Glucose 94, Calcium 8.0 Micro: Microbiology 02/01/25 13:24 Stool Stool Occult Blood (JG) - Final Occult Blood Positive Physical Exam Const alert, oriented x3, no apparent distress, average body habitus, no limitations, healthy appearing and well nourished General Appearance: cooperative and comfortable HEENT normocephalic Eyes General Eye: normal appearance of both eyes Pupil: PERRL Neck full ROM General: normal visual inspection Resp normal respiratory effort, normal air movement, no retractions, no use of accessory muscles and clear to auscultation bilaterally Cardio regular rate, regular rhythm, S1 normal heart sound and S2 normal heart sound GI normal to inspection, nondistended, normoactive bowel sounds, soft to palpation and non-tender Extremity normal to inspection and full ROM Neuro oriented x3 and moves all extremities Speech: speech normal Psych Appearance: grossly normal Activity / Motor Behavior: appropriate eye contact Speech: normal speech Thought Process: normal thought process Thought Content: normal thought content Attention / Concentration: attention grossly intact Memory / Cognition: memory grossly intact Insight: insight good Judgement: judgement good Assessment & Plan Assessment/Plan (1) Upper GI bleed: (2) Acute blood loss anemia: (3) GI bleed due to NSAIDs: PLAN: Plan Acute UGIB, likely secondary to PUD exacerbated by recent NSAID (Excedrin) use and ongoing clopidogrel use, in the context of significant cardiovascular comorbidity and prior GIB. No evidence of LGIB source, but absence of prior colonoscopy warrants future outpatient evaluation for screening purposes. - EGD is scheduled today for localization and management of bleeding source. Evaluate for H. pylori if PUD is confirmed. - I recommend strict avoidance of all nonsteroidal medications and aspirin containing products (including Excedrin) due to high GIB risk. - Continue IV PPI for acute management; transition to oral pantoprazole once stable and able to tolerate p.o., as pantoprazole is preferred with chronic clopidogrel use . - Monitor H&H daily; transfuse PRBCs as needed to maintain hemoglobin >7-8, with higher threshold considered due to CAD. - Resume PPI long-term for secondary GI prophylaxis while on antiplatelet therapy. - Consider outpatient colonoscopy or Cologuard for colorectal cancer screening after stabilization, given age and chronic anemia.
--- NOTE | 2025-02-02 11:24 | PN.HOSP_ITS ---
Reason for Visit Chief Complaint: Presyncopal symptoms Subjective Subjective Saw patient at bedside this morning. Patient was laying back comfortably in bed, he is questions appropriately, in no acute distress. He did not have any dark stools overnight. Denies any lightheadedness or dizziness at rest currently. No other acute concerns this time. Objective Data Objective Data Vital Signs: Vital Signs Temp Pulse Resp BP Pulse Ox O2 Del Method 97.5 F L 94 15 114/65 100 Room Air 02/02/25 08:00 02/02/25 10:00 02/02/25 10:00 02/02/25 10:00 02/02/25 10:00 02/02/25 10:00 Oxygen Delivery Method Room Air Weight: 80.83 kg Body Mass Index (BMI) 24.1 Intake & Output: Intake and Output for Last 24 Hours 01/31/25 02/01/25 02/02/25 23:59 23:59 23:59 Intake Total 1535 / 1535 189.5 / 189.5 Output Total 1534 / 1534 700 / 700 Balance -510.5 / -510.5 Lab / Micro Data 02/02/25 11:55 02/02/25 05:25 Labs: Laboratory Results - last 24 hr 02/01/25 10:52: RBC Morphology N CYTIC, Acanthocytes (Spur) 1+, Schistocytes 1+, Sodium 134, Potassium 4.9, Chloride 107, Carbon Dioxide 18.0 L, Anion Gap 9, BUN 65 H, Creatinine 0.88, Estim Creat Clear Calc 86.96, Est GFR (MDRD) Non-Af 93, B UN/Creatinine Ratio 74.3 H, Glucose 123 H, Hemoglobin A1c 6.0 H, Calcium 7.9, I santos 35 L, TIBC 318, Iron Saturation 10.9, Unsaturated IBC 283, Ferritin 20 L, Troponin T High Sens 11, TSH 0.597 02/01/25 12:50: Troponin T Hi Sens 2 Hr 15 02/01/25 13:24: Hgb 7.5 L, Hct 25.1 L, Blood Type B NEGATIVE, Antibody Screen NEGATIVE, Crossmatch See Detail 02/01/25 14:48: Troponin T Hi Sens 4Hr 22 02/01/25 19:50: Hgb 8.6 L, Hct 27.0 L 02/02/25 05:25: WBC 12.6 H, RBC 2.89 L, Hgb 7.4 L, Hct 23.7 L, MCV 82.0, MCH 25.6 L, MCHC 31.2 L, RDW Std Deviation 60.0 H, RDW Coeff of Micheal 20.2 H, Plt Count 262, MPV 10.4, Differential Comment , Sodium 141, Potassium 3.8, Chloride 115 H, Carbon Dioxide 16.4 L, Anion Gap 9, BUN 50 H, Creatinine 0.93, Estim Creat Clear Calc 82.28, Est GFR (MDRD) Non-Af 89, BUN/Creatinine Ratio 53.1 H, Glucose 94, Calcium 8.0 Micro: Microbiology 02/01/25 13:24 Stool Stool Occult Blood (JG) - Final Occult Blood Positive Physical Exam Const alert, oriented x3, no apparent distress and average body habitus Constitutional Narrative: Elderly male, mildly fatigued appearing, sitting back comfortably in bed, answering most questions appropriately but with some tangential speech noted, otherwise in no acute distress. Stable. General Appearance: cooperative and comfortable HEENT normocephalic, head/scalp atraumatic, hearing grossly normal bilaterally, nasal mucous membranes and turbinates normal and moist oral mucous membranes Eyes PERRL, EOMs intact bilaterally and conjunctivae normal Neck full ROM Chest inspection of chest normal Resp normal respiratory effort, normal air movement, no use of accessory muscles and clear to auscultation bilaterally Cardio regular rate, regular rhythm, no murmurs and peripheral pulses 2+ throughout GI normal to inspection, nondistended, normoactive bowel sounds, soft to palpation, non-tender and non-distended Back/Spine normal ROM Extremity normal to inspection, full ROM and no pedal edema Skin no rashes or lesions noted Neuro oriented x3, CN's II-XII intact bilaterally, moves all extremities and no focal motor deficits Coordination / Balance: [id number] test normal and [id number] test normal Motor Exam: strength 5/5 throughout Psych mental status grossly normal Assessment & Plan Assessment/Plan (1) Acute blood loss anemia: (2) Upper GI bleed: PLAN: Plan Patient is a 69-year-old male who presented to [facility] ED on 02/01/2025 with presyncopal symptoms. 1. Acute blood loss anemia suspected secondary to recurrent upper GI bleed – GI following. Patient with reported history of ABLA secondary to upper GI bleed in May done in [place]. Per family, GI bleed was attributed to home plavix and ibuprofen use secondary to chronic pain. Family thought that Plavix was discontinued at that time but notably on recent PCP office note from 11/12 it was noted that he was still on Plavix. Hemoglobin 8.2 on admit, most recent baseline hemoglobin 10.2 in August per clinisync records. Patient had 2 large dark bowel movements in the ED and repeat H&H 2 hours later showed hemoglobin 7.5. Initiated on IV Protonix drip and transfuse 1 unit of blood with repeat hemoglobin 8.6. Hemoglobin has downtrended with most recent hemoglobin 7.2 at noon on 02/02. Plan is for EGD this afternoon, will follow-up results. Will plan to repeat H&H later this evening and then CBC tomorrow morning, transfuse as needed for hemoglobin less than 7. 2. Acute urinary retention – Patient with difficulty urinating on arrival to the ICU and bladder scan showed approximately 300 cc of urine in the bladder. Given his presyncopal symptoms with getting out of bed in setting of acute anemia as above, Mckinney catheter placed. Will monitor. 3. History of CAD with CABG, hyperlipidemia – Follows with outpatient cardiology. History of CABG x 2 in November 2023 at [facility]. Patient has been stable from a cardiac standpoint since that time. Continue home statin. Hold home Plavix. 4. Multiple sclerosis – Follows with neurology at the [facility]. Was diagnosed back in 2018. No history of MS flares per patient report. Per PCP note from 11/12, patient is on dimethyl fumarate for this and has generally been doing well. He does have some balance issues and has had a few minor falls, but he regularly engages in physical therapy and is able to perform household task independently. Continue home medication. 5. Anxiety/depression – Stable. Continue home citalopram. 6. Seizure disorder – Stable. Continue home zonisamide. DVT prophylaxis: SCDs CODE STATUS: Full code, verified Expected disposition: TBD Total clinical time spent by myself addressing the patient's medical issues, reviewing all the data, and collaborating with patient's care team: 37 minutes. Charges/Coding Visit Charges Inpatient E&M: 24155 Subs Hosp L2
--- NOTE | 2025-02-02 11:37 | CASEMGMT ---
KINSEY MARIN Assessment Face to Face with patient for initial transition planning/care coordination assessment. KINSEY MARIN introduced self and role at [facility], pt voices understanding. Pt is A&Ox4 and is resting comfortably in bed and is calm. Care providers, pharmacy, and demographics verified. Admitting dx: Strokelike symptoms, Acute blood loss anemia suspected secondary to recurrent upper GI bleed LACE Strata: 1 PCP: Wisam Simons Specialists: Dr Luis Enrique North (Neuro [facility]), [facility] Preferred Pharmacy: [facility] on [facility] Insurance: [facility] A/B. [facility] Prescription Benefit: Yes LNOK: Manasa (W), Arturo (Son) Living Arrangements: Pt lives with his in a bilevel home with 2 steps to enter with a grab bar to help enter. Pt states that there are around 10 steps to manage in between floors of the home. Pt denies concerns and states that he is independent. ADLs/IADLs: States indep. Per ICU rounds, PT to eval after EGD. Transportation: self, DME: Mobility scooter, cane, BP Machine, Grab bars. HHC/SNF: Denies skilled HH hx. Reports hx at the [facility] last year, "For a few days of rehab." Pt reports he has been to in the past for OP PT but is currently denying the need for HH or OP Tx. Pt states that he goes to the rec center in [place] often for exercise. Pt’s goal: Home Plan: EGD today. PT to eval subsequently. At this time, the pt plans to DC home with his once medically ready and denies further questions, concerns, or needs. Asiya Newton RN, CM
--- NOTE | 2025-02-02 12:00 | EGD_PTH ---
PATIENT: JUAINTA JAY LOC: [facility] U#:[id number] AGE/SX: 69/M ROOM: [facility] RE02/01/[address]: Dr. Raz Staples DO : 1955 BED: 1 DIS: 02/04/2025 SPEC #: [id number] RECD: 02/02/25 14:54 STATUS: KARLA REQ #: [id number] JANNETH: 02/02/25 12:[address]: Fredrick Conrad DEPT: SURGICAL PATHOLOGY RECD BY: Matthew Patel ENTERED: 02/02/25 15:08 SP TYPE: EGD BIOPSY OTHR DR: DO Dr. Wisam Ching MD Dr. Prakash Chand, MD Heather Evans PLEAT TAPER-C FANNY AdamesC NENA Morgan Tissues: A - Gastric mucous membrane B - Duodenum, NOS Procedures: Immunohistochemical Stains Surgery Specimen Level IV HEADER OPERATION: EGD and biopsy PRE-OP DIAGNOSIS: GI bleed TISSUE SUBMITTED: A- Gastric antrum biopsy, B- Duodenum biopsy MICROSCOPIC DIAGNOSIS A. Gastric antrum, biopsy: - Antral mucosa with features of reactive gastropathy. - IHC negative for H. pylori organisms. B. Duodenum, biopsy: - Steven gland hyperplasia and gastric mucin cell metaplasia, suggestive of peptic injury. - Negative for increased intraepithelial lymphocytes. MICROSCOPIC DESCRIPTION Slides are reviewed. All matched controls reacted appropriately. These tests were developed and their performance characteristics determined by [facility]. They may not have been cleared or approved by the U.S. Food and Drug Administration. The FDA has determined that such clearance or approval is not necessary. The above immunohistochemical markers and/or special stains have been reviewed by the Pathologist. GROSS DESCRIPTION A. Received in fixative is one container labeled with the patient's name and designated "Gastric antrum biopsy." The specimen consists of two irregular fragments of seals tissue, each measuring 0.3 cm. The specimen is totally submitted in one cassette. B. Received in fixative is one container labeled with the patient's name and designated "Duodenum biopsy." The specimen consists of multiple irregular fragments of seals tissue that in aggregate measure 0.9 x 0.7 x 0.1 cm. The specimen is totally submitted in one cassette. IL 02/02/2025 CPT:08821u1,49374
[2025-02-02 12:03] LABS: Hematocrit 22.6 % (40-54); Hemoglobin 7.2 g/dL (13.0-16.5)
--- NOTE | 2025-02-02 13:46 | PCM.PRE.AN2 ---
ASA Classification* ASA Classification ASA Classification: 3 Assessment & Plan Anesthesia* Anesthesia Assessment Anesthesia Assessment: Discussed sedation and/or anesthesia options, risks, benefits, and alternatives with patient/parents/legal guardian/POA. Questions invited. The patient/parents/legal guardian/POA seems to understand and agrees to proceed with anesthesia plan. Reviewed the physical assessment, medical history, allergy history and patient home medications list prior to surgery/procedure/anesthetic and documented any changes. Performed airway and anesthesia risk assessments. Anesthesia Type Anesthesia Type: MAC Anesthesia Focused Assessment* Temperature: 97.5 F Pulse Rate: 74 Blood Pressure: 100/62 Respiratory Rate: 17 Pulse Ox: 100 Airway Assessment Mouth opens: >3 cm Mallampati Score: II Labs Anesthesia Preop lab: CBC WBC, (4.4-11.0) 12.6 K/mm3 H Today, 05:25 RBC, (4.6-6.2) 2.89 M/mm3 L Today, 05:25 Hgb, (13.0-16.5) 7.2 g/dL L Today, 11:55 Hct, (40-54) 22.6 % L Today, 11:55 Plt Count, (150-450) 262 K/mm3 Today, 05:25 CHEMISTRY Potassium, (3.3-5.1) 3.8 mmol/L Today, 05:25 Sodium, (133-145) 141 mmol/L Today, 05:25 BUN, (4-19) 50 mg/dL H Today, 05:25 Creatinine, (0.70-1.20) 0.93 mg/dL Today, 05:25 Glucose, (70-99) 94 mg/dL Today, 05:25 POC Glucose, (74-106) 111 mg/dL H 02/01/25, 10:44 TSH, (0.300-4.200) 0.597 uIU/mL 02/01/25, 10:52 COAG PT, (11.7-14.9) 15.9 SECONDS H 02/01/25, 10:52 Pre-Assessment Diagnosis/Proposed Procedure Planned Operative Procedure(s): EGD Anesthesia History 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 When Was Last Pacemaker Check QUESTION #4 FULL TEXT: You/Your Family Experience fever (hyperthermia) with Anesthesia Last Oral Intake Last Oral intake: Last Oral Intake NPO since Meds taken in AM with sips of water? 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 maintenance mechanic Female HX of Motion Sickness HX of N/V After Surgery Non-Smoker Duration of Surgery greater than 60 minutes Number of Risk Factors PONV Score Height & Weight Height & Weight: Anesthesia: Height & Weight Height 6 ft 02/01/25 15:09 Weight: 80.83 kg 02/02/25 05:34 Body Mass Index (BMI) 24.1 02/02/25 05:34 Respiratory Assessment Respiratory Assessment - ethanol maintenance mechanic: Respiratory Tract Infection Hx - ethanol maintenance mechanic Hx Respiratory Tract Infection STOP Sleep Apnea STOP Sleep Apnea - ethanol maintenance mechanic: STOP Sleep Apnea - ethanol maintenance mechanic Hx Hypertension No 02/02/25 09:45 Hx Sleep Apnea No 02/01/25 15:05 CPAP BIPAP Do you snore loudly (louder No 02/01/25 15:05 than talking or can be heard Do you often feel tired/ Yes 02/01/25 15:05 fatigued/ sleepy during daytime? Has anyone observed you stop No 02/01/25 15:05 breathing during sleep? STOP Results Negative 02/01/25 15:05 QUESTION #5 FULL TEXT : Do you snore loudly (louder than talking or can be heard through closed doors)? 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 mechanic: Tobacco Use History - ethanol maintenance mechanic Tobacco Use Smoking Status Former smoker 02/01/25 17:16 Hx Tobacco Use Yes: smoked less than an 02/01/25 15:05 pack a day Years Smoking Packs Smoked per Day Smoking Cessation Date was No - quit smoking greater 02/01/25 15:05 within the last 15 years than 15 years ago Hx Smoking Cessation Date Hx Smoking Cessation Counseling Hematologic Medial History Hematologic Hx - ethanol maintenance mechanic: Hematologic Medical Hx - hat block bench hand Hx of Blood Transfusion Yes 02/01/25 15:05 Hx of Transfusion in last 3 No 02/01/25 15:05 Months Date of Last Transfusion (if within last 3 months) Ever experience any problems No 02/01/25 15:05 with transfusion(s)? Specify any problems Hx of Preganancy in last 3 N/A 02/01/25 15:05 Months Nurse Filling Out Transfusion MHOCHSTET 02/01/25 15:05 & Questions: Date: 02/01/25 02/01/25 15:05 Time: 15:02/01/25 15:05 Patient unable to answer at this time (ie. confused, unrespo /Reproduction History /Reproductive History - ethanol maintenance mechanic: /Reproductive Hx- ethanol maintenance mechanic Hx Now Gestational Age (in weeks): EDC: Hx Hx Para Hx Section SAB Active Medications Active Medications: Current Medications Generic Name Dose Route Start Last Admin Trade Name Freq PRN Reason Stop Dose Admin Acetaminophen 650 mg 02/01/25 15:02 Acetaminophen 325 Mg Tablet PO Q6H PRN PRN Pain 1-10 Or Fever>100.7 Atorvastatin Calcium 80 mg 02/01/25 22:00 02/01/25 21:35 Atorvastatin Calcium 80 Mg Tablet PO 80 mg QHS DENZEL Administration Citalopram Hydrobromide 40 mg 02/02/25 10:00 02/02/25 08:40 Citalopram 40 Mg Tablet PO 40 mg DAILY DENZEL Administration Dimethyl Fumarate 240 mg 02/02/25 22:00 Dimethyl Fumarate 240 Mg Capsule.Dr PO BID DENZEL Hydralazine HCl 5 mg 02/01/25 15:02 Hydralazine 20 Mg/Ml Vial IV 02/02/25 15:02 Q30M PRN maintain BP parameters with HR <60 Pantoprazole Sodium 80 mg/ 100 mls @ 10 mls/hr 02/01/25 14:15 02/02/25 10:49 Sodium Chloride CONT INF 10 mls/hr Q10H DENZEL Administration Sodium Chloride 250 mls @ 15 mls/hr 02/01/25 15:26 IV .[id number] PRN Saline Flush Sodium Chloride 250 mls @ 15 mls/hr 02/01/25 15:26 IV .[id number] PRN Additional IVPB Infusion Labetalol HCl 10 - 20 mg 02/01/25 15:02 Labetalol 20 Mg/4 Ml Vial IV 02/02/25 15:02 Q10M PRN PRN maintain BP parameters with HR >/=60 Ondansetron HCl 4 mg 02/01/25 15:02 Ondansetron 4 Mg/2 Ml Vial IV Q8H PRN PRN NAUSEA/VOMITING Sodium Chloride 10 - 40 ml 02/01/25 15:26 02/01/25 19:48 0.9% Saline Lock 10 Ml Syringe IV 20 ml UD PRN Administration SALINE FLUSH Tizanidine HCl 2 mg 02/02/25 10:00 02/02/25 08:40 Tizanidine Hcl 2 Mg Tablet PO 2 mg BID DENZEL Administration Zonisamide 200 mg 02/02/25 10:00 02/02/25 08:41 Zonisamide 100 Mg Capsule PO 200 mg DAILY DENZEL Administration Zonisamide 300 mg 02/01/25 22:00 02/01/25 21:36 Zonisamide 100 Mg Capsule PO 300 mg QHS DENZEL Administration PFSH Medical History Postoperative atrial fibrillation Leptospirosis Atherosclerosis of coronary artery of [place] heart without angina pectoris Seizures Multiple sclerosis Home Medications Medication Instructions Recorded Last Taken Type citalopram 40 mg tablet 40 mg PO DAILY depression 11/21/23 02/01/25 History dimethyl fumarate 240 mg 240 mg PO BID ms 11/21/23 02/01/25 History capsule,delayed release zonisamide 100 mg capsule 300 mg PO QHS seizures 11/21/23 01/31/25 History zonisamide 100 mg capsule 200 mg PO QDAY seizures 04/01/24 02/01/25 History tizanidine 2 mg capsule 2 mg PO QHS leg pain 08/03/24 01/31/25 History atorvastatin 80 mg tablet 80 mg PO QHS #90 tabs 01/18/25 01/31/25 Rx clopidogrel 75 mg tablet (Plavix) 75 mg PO QDAY #90 tabs 01/18/25 02/01/25 Rx Allergy/AdvReac Type Severity Reaction Status Date / Time No Known Allergies Allergy Verified 02/01/25 10:26 Family History Mother Multiple myeloma Father CVA (cerebral vascular accident) Brother CAD (coronary artery disease) History of coronary artery bypass surgery Surgical History History of tonsillectomy History of total splenectomy History of left heart catheterization (~11/24/23) History of coronary artery bypass surgery (~11/26/23) Social History household members: spouse Smoking Status: Former smoker how long ago did patient quit smokin years ago alcohol intake: current alcohol intake frequency: holidays/special occasions only substance use type: does not use caffeine: Yes Type: carbonated beverages Number of servings: 1 and coffee Number of servings: 1 Review of Systems (Anesthesia) ROS Narrative System reviewed and no additional complaints, except as documented.
[2025-02-02] MEDS: Lactated Ringers 1,000 ML 15 ML IV (13:57)
--- NOTE | 2025-02-02 14:22 | OP.EGD_ITS ---
Patient Name: Mendel Granados Procedure Date: 02/02/2025 1:58 PM Date of : 1955 Age: 69 Procedure: Upper GI endoscopy Indications: Acute post hemorrhagic anemia, Iron deficiency anemia, Melena Providers: Fredrick Conrad DO Medicines: Monitored Anesthesia Care Patient Profile: This is a 69 year old male. Refer to note in patient chart for documentation of history and physical. Patient has symptoms of acute epigastric abdominal pain. Complications: No immediate complications. Procedure: Pre-Anesthesia Assessment: - Prior to the procedure, a History and Physical was performed, and patient medications and allergies were reviewed. The patient is competent. The risks and benefits of the procedure and the sedation options and risks were discussed with the patient. All questions were answered and informed consent was obtained. Patient identification and proposed procedure were verified by the physician in the pre-procedure area. Mental Status Examination: alert and oriented. Airway Examination: normal oropharyngeal airway and neck mobility. Respiratory Examination: clear to auscultation. CV Examination: normal. Prophylactic Antibiotics: The patient does not require prophylactic antibiotics. Prior Anticoagulants: The patient has taken no anticoagulant or antiplatelet agents except for NSAID medication. ASA Grade Assessment: II - A patient with mild systemic disease. After reviewing the risks and benefits, the patient was deemed in satisfactory condition to undergo the procedure. The anesthesia plan was to use monitored anesthesia care (MAC). Immediately prior to administration of medications, the patient was re-assessed for adequacy to receive sedatives. The heart rate, respiratory rate, oxygen saturations, blood pressure, adequacy of pulmonary ventilation, and response to care were monitored throughout the procedure. The physical status of the patient was re-assessed after the procedure. After obtaining informed consent, the endoscope was passed under direct vision. Throughout the procedure, the patient's blood pressure, pulse, and oxygen saturations were monitored continuously. The gastroscope was introduced through the mouth, and advanced to the fourth part of the duodenum. Small bowel enteroscopy was deemed necessary. The upper GI endoscopy was accomplished without difficulty. The patient tolerated the procedure well. Scope In: 2:11:28 PM Scope Out: 2:16:03 PM Total Procedure Duration Time 0 hours 4 minutes 35 seconds Findings: No gross lesions were noted in the entire esophagus. A medium-sized hiatal hernia was present. Patchy moderate inflammation characterized by congestion (edema), erosions and erythema was found in the gastric antrum. Biopsies were taken with a cold forceps for histology. Biopsies were taken with a cold forceps for Helicobacter pylori testing. The patient was repositioned in order to accomplish the maneuver. Estimated blood loss was minimal. Few non-bleeding linear duodenal ulcers with no stigmata of bleeding were found in the duodenal bulb. The largest lesion was 6 mm in largest dimension. Biopsies were taken with a cold forceps for histology. Verification of patient identification for the specimen was done. Estimated blood loss was minimal. Impression: - No gross lesions in the entire esophagus. - Medium-sized hiatal hernia. - Chronic gastritis. Biopsied. - Non-bleeding duodenal ulcers with no stigmata of bleeding. Biopsied. Recommendation: - [facility]. - Full liquid diet. - Continue present medications. - Await pathology results. Procedure Code(s): --- Professional --- 87384, Small intestinal endoscopy, enteroscopy beyond second portion of duodenum, not including ileum; with biopsy, single or multiple CPT copyright 2021 [employer]. All rights reserved. The codes documented in this report are preliminary and upon head of talent management review may be revised to meet current compliance requirements. Fredrick Conrad DO 02/02/2025 2:21:48 PM This report has been signed electronically. Number of Addenda: 0 Note Initiated On: 02/02/2025 1:58 PM
--- NOTE | 2025-02-02 14:22 | OP.PROVAT_ITS ---
02/02/2025 Wisam Simons Re : Upper GI endoscopy procedure for Mendel Granados Dear Kristyn This procedure was performed on Sunday, February 02, 2025. My impressions and recommendations are as follows: Impressions : - No gross lesions in the entire esophagus. - Medium-sized hiatal hernia. - Chronic gastritis. Biopsied. - Non-bleeding duodenal ulcers with no stigmata of bleeding. Biopsied. Recommendations : - [facility]. - Full liquid diet. - Continue present medications. - Await pathology results. My findings are described in the full procedure note, which is enclosed. If I can be of further assistance, please feel free to contact me at . Sincerely, Fredrick Conrad, 02/02/2025 2:21:48 PM This report has been signed electronically.
--- NOTE | 2025-02-02 14:28 | PCM.POST.ANE ---
Anesthesia: Postop Eval I Current Vital Signs Temperature: 98.9 F Pulse Rate: 72 Blood Pressure: 80/51 Respiratory Rate: 16 Pulse Ox: 100 Oxygen Delivery Method: Room Air Assessment Airway patent: Yes Spontaneous unlabored respirations: Yes Mental status: Asleep nausea: No Vomiting: No Anesthesia Complication: No Fluid Hydration Crystalloid volume administer (ml): 200 Total IV fluid infused: 200 Progress Note Anesthesia document: Postop Eval 1 completed: Yes
--- NOTE | 2025-02-02 14:38 | PCM.POSTANE2 ---
Anesthesia Postop Eval I Sum Postop Eval Completion status Anesthesia document: Postop Eval 1 completed: Yes Anesthesia Postop Eval I Summary Anesthesia Postop Eval I Summary: Anesthesia Postop Eval I: Assessment Summary Airway patent Yes 02/02/25 14:29 [email or web address] Spontaneous unlabored Yes 02/02/25 14:29 [email or web address] respirations Mental status Asleep 02/02/25 14:29 [email or web address] nausea No 02/02/25 14:29 [email or web address] Vomiting No 02/02/25 14:29 [email or web address] Anesthesia Postop Eval I: Fluid Summary Crystalloid volume administer 200 02/02/25 14:29 [email or web address] (ml) Colloids volume administered ( ml) Blood Product volume administered (ml) Total IV fluid infused 200 02/02/25 14:29 [email or web address] Anesthesia Postop Eval I: Summary Notes Anesthesia Complication No 02/02/25 14:29 [email or web address] Anesthesia Complication Comment: Post-operative progress note Anesthesia: Postop Eval II Evaluation Mental status: Awake Pain Level: 0 nausea: No Vomiting: No
[2025-02-02 20:37] LABS: Hematocrit 23.2 % (40-54); Hemoglobin 7.2 g/dL (13.0-16.5)
[2025-02-02] MEDS: DIMETHYL FUMARATE 240 MG CAPSULE.DR PO (21:41)
[2025-02-02] MEDS: ZONISAMIDE 100 MG CAPSULE 300 MG PO (21:44)
[2025-02-02] MEDS: 0.9% Saline Lock 10 ML Syringe IV (21:46)
--- NOTE | 2025-02-02 23:41 | PCM.HOSP.N ---
Hospitalist Note BPs softening, no evidence of melena or hematochezia, Duodenal ulcer treated today. Recent hgb checked tonight at 1999, same as previous, 7.2. 500ml LR bolus ordered.
[2025-02-03] VITALS (11 sets, daily range): BP systolic 89–109; BP diastolic 49–63; PULSE 66–92; RESP 14–22; TEMP 36.9–37.1; O2SAT 94–100; BMI 23.8; BMI 23.9
[2025-02-03] MEDS: Lactated Ringers 500 ML 999 ML IV (00:42)
[2025-02-03 06:16] LABS: Hematocrit 21.8 % (40-54); Hemoglobin 6.8 g/dL (13.0-16.5); Mean Corp Hgb Conc 31.2 g/dL (32-36); Mean Corpuscular Volume 83.5 fL (80-94); Mean Platelet Vol. 10.8 fl (6.2-12.0); POSITIVE MORPHOLOGY YES; Platelet Count 235 K/mm3 (150-450); RBC Distribution Width CV 20.6 % (11.6-14.6); RBC Distribution Width SD 61.7 fl (35.1-43.9); Red Blood Count 2.61 M/mm3 (4.6-6.2); White Blood Count 12.0 K/mm3 (4.4-11.0)
[2025-02-03 06:29] LABS: Scan Indicated on CBC? Y/N YES- FLAGS NOTED
[2025-02-03 06:56] LABS: Anion Gap 9 (5-15); BUN 26 mg/dL (4-19); BUN/Creat Ratio 28.7 RATIO (10-20); Calcium,Total 8.2 mg/dL (7.6-11.0); Carbon Dioxide 21.0 mmol/L (21.0-32.0); Chloride 111 mmol/L (98-108); Estimated Creatinine Clearance 85.02 ml/min (50-250); Glucose 97 mg/dL (70-99); Potassium 3.5 mmol/L (3.3-5.1)
[2025-02-03] MEDS: ZONISAMIDE 100 MG CAPSULE 200 MG PO (07:48)
[2025-02-03] MEDS: DIMETHYL FUMARATE 240 MG CAPSULE.DR PO ×2 (07:49→21:27)
--- NOTE | 2025-02-03 09:40 | PCM.PN.HOSP ---
Reason for Visit Chief Complaint: Presyncopal symptoms Subjective Subjective Saw patient at bedside with morning. Patient was laying back comfortably in bed, in no acute distress. Tolerated EGD well and no stool output since then. Denies any lightheadedness or dizziness at rest. No other acute concerns at morning. Objective Data Objective Data Vital Signs: Vital Signs Temp Pulse Resp BP Pulse Ox O2 Del Method 98.4 F 85 15 92/54 L 94 Room Air 02/02/25 20:00 02/03/25 06:00 02/03/25 06:00 02/03/25 06:00 02/03/25 06:00 02/03/25 06:00 Oxygen Delivery Method Room Air Weight: 79.9 kg Body Mass Index (BMI) 23.8 Intake & Output: Intake and Output for Last 24 Hours 02/01/25 02/02/25 02/03/25 23:59 23:59 23:59 Intake Total 1535 / 1535 779.42 / 779.42 740 / 740 Output Total 1534 / 1534 2602 / 2702 1075 / 1075 Balance -1822.58 / -1922.58 -335 / -335 Lab / Micro Data 02/03/25 05:30 02/03/25 05:30 Labs: Laboratory Results - last 24 hr 02/01/25 13:24: Crossmatch See Detail 02/02/25 11:55: Hgb 7.2 L, Hct 22.6 L 02/02/25 19:45: Hgb 7.2 L, Hct 23.2 L 02/03/25 05:30: WBC 12.0 H, RBC 2.61 L, Hgb 6.8 L, Hct 21.8 L, MCV 83.5, MCH 26.1 L, MCHC 31.2 L, RDW Std Deviation 61.7 H, RDW Coeff of Micheal 20.6 H, Plt Count 235, MPV 10.8, Differential Comment , Sodium 140, Potassium 3.5, Chloride 111 H, Carbon Dioxide 21.0, Anion Gap 9, BUN 26 H, Creatinine 0.90, Estim Creat Clear Calc 85.02, Est GFR (MDRD) Non-Af 92, BUN/Creatinine Ratio 28.7 H, Glucose 97, Calcium 8.2 Micro: Microbiology 10/21/25 13:24 Stool Stool Occult Blood (JG) - Final Occult Blood Positive Physical Exam Const alert, oriented x3, no apparent distress and average body habitus Constitutional Narrative: Elderly male, mildly fatigued appearing, sitting back comfortably in bed, answering most questions appropriately but with some tangential speech noted, otherwise in no acute distress. Stable. General Appearance: cooperative and comfortable HEENT normocephalic, head/scalp atraumatic, hearing grossly normal bilaterally, nasal mucous membranes and turbinates normal and moist oral mucous membranes Eyes PERRL, EOMs intact bilaterally and conjunctivae normal Neck full ROM Chest inspection of chest normal Resp normal respiratory effort, normal air movement, no use of accessory muscles and clear to auscultation bilaterally Cardio regular rate, regular rhythm, no murmurs and peripheral pulses 2+ throughout GI normal to inspection, nondistended, normoactive bowel sounds, soft to palpation, non-tender and non-distended Back/Spine normal ROM Extremity normal to inspection, full ROM and no pedal edema Skin no rashes or lesions noted Neuro oriented x3, CN's II-XII intact bilaterally, moves all extremities and no focal motor deficits Coordination / Balance: [id number] test normal and [id number] test normal Motor Exam: strength 5/5 throughout Psych mental status grossly normal Assessment & Plan Assessment/Plan (1) Acute blood loss anemia: (2) Upper GI bleed: PLAN: Plan Patient is a 69-year-old male who presented to [facility] ED on 02/01/2025 with presyncopal symptoms. 1. Acute blood loss anemia suspected secondary to recurrent upper GI bleed – GI following. Patient with reported history of ABLA secondary to upper GI bleed in May done in [place]. Per family, GI bleed was attributed to home plavix and ibuprofen use secondary to chronic pain. Family thought that Plavix was discontinued at that time but notably on recent PCP office note from 11/12 it was noted that he was still on Plavix. Hemoglobin 8.2 on admit, most recent baseline hemoglobin 10.2 in August per [facility] records. Had 2 large dark bowel movements in the ED and repeat H&H showed hemoglobin 7.5. Initiated on IV Protonix drip and transfused 1 unit of blood; repeat hemoglobin 8.5 but then down trended to 7.3 prior to EGD. EGD on 02/02 with chronic arthritis noted and nonbleeding duodenal ulcers with no stigmata of bleeding noted. No further dark bowel movements since EGD. Given IV fluids after EGD and hemoglobin mild downtrend to 6.8 on 02/03. Will transfuse 1 more unit of blood today and follow-up CBC tomorrow. Per GI, will treat with p.o. PPI twice daily indefinitely and sucralfate with meals for 2 months. Hemoglobin is improved tomorrow and patient is otherwise stable, will be fine for discharge home. 2. Acute urinary retention – Patient with difficulty urinating on arrival to the ICU and bladder scan showed approximately 300 cc of urine in the bladder. Given his presyncopal symptoms with getting out of bed in setting of acute anemia as above, Mckinney catheter placed. Mckinney catheter removed on the morning of 02/03 and will monitor to ensure patient has adequate urine output with bladder emptying. 3. History of CAD with CABG, hyperlipidemia – Follows with outpatient cardiology. History of CABG x 2 in November 2023 at [facility]. Patient has been stable from a cardiac standpoint since that time. Continue home statin. Hold home Plavix. Will plan to hold home Plavix on discharge. 4. Multiple sclerosis – Follows with neurology at the [facility]. Was diagnosed back in 2018. No history of MS flares per patient report. Per PCP note from 11/12, patient is on dimethyl fumarate for this and has generally been doing well. He does have some balance issues and has had a few minor falls, but he regularly engages in physical therapy and is able to perform household task independently. Continue home medication. 5. Anxiety/depression – Stable. Continue home citalopram. 6. Seizure disorder – Stable. Continue home zonisamide. DVT prophylaxis: SCDs CODE STATUS: Full code, verified Expected disposition: Home, 1 to 2 days Total clinical time spent by myself addressing the patient's medical issues, reviewing all the data, and collaborating with patient's care team: 37 minutes. Charges/Coding Visit Charges Inpatient E&M: 72008 Subs Hosp L2
--- NOTE | 2025-02-03 16:13 | CHAPLAIN ---
Type of Pastoral Visit _x__ Initial Visit ___ Follow-up Visit ___ On-call Visit ___ General Patient Visit ___ Spiritual Assessment ___ Family Conference ___ Bereavement ___ Rapid Response ___ Code Blue ___ Other (describe below) Pastoral Care Referral From ___ Patient _x__ Family ___ Nurse ___ Physician ___ Reactor Operator ___ Internal Grinder Tender ___ Other (describe below) Sacrament/Intervention _x__ Active listening ___ Anointing ___ Protestant ___ Bereavement ___ Communion _x__ Ricarda exploration ___ ___ Life review _x__ Prayer ___ Reconciliation ___ Sacrament of Sick ___ Supportive presence ___ Wedding ___ Other (describe below) Pastoral Comments patient is welcoming and optimistic about his care and his recovery; pt is hopeful to go home tomorrow; pt immediately agrees that prayer would be important; pt is offered opportunity to talk and to seek assistance but prayer is sufficient
[2025-02-03] MEDS: ZONISAMIDE 100 MG CAPSULE 300 MG PO (21:26)
[2025-02-04 04:30] VITALS: BP 102/54; PULSE 70; RESP 16; TEMP 36.5; O2SAT 98
[2025-02-04 05:50] LABS: Hematocrit 26.0 % (40-54); Hemoglobin 8.1 g/dL (13.0-16.5); Mean Corp Hgb Conc 31.2 g/dL (32-36); Mean Corpuscular Volume 83.9 fL (80-94); Mean Platelet Vol. 10.9 fl (6.2-12.0); Platelet Count 264 K/mm3 (150-450); RBC Distribution Width CV 19.7 % (11.6-14.6); RBC Distribution Width SD 59.5 fl (35.1-43.9); Red Blood Count 3.10 M/mm3 (4.6-6.2); White Blood Count 10.0 K/mm3 (4.4-11.0)
[2025-02-04 06:22] LABS: Anion Gap 8 (5-15); BUN 15 mg/dL (4-19); BUN/Creat Ratio 18.2 RATIO (10-20); Calcium,Total 8.3 mg/dL (7.6-11.0); Carbon Dioxide 21.9 mmol/L (21.0-32.0); Chloride 111 mmol/L (98-108); Estimated Creatinine Clearance 95.65 ml/min (50-250); Glucose 108 mg/dL (70-99); Potassium 3.8 mmol/L (3.3-5.1)
[2025-02-04 08:12] VITALS: BMI 23.8
[2025-02-04 08:25] VITALS: BP 103/58; PULSE 71; RESP 18; TEMP 36.6; O2SAT 99
[2025-02-04] MEDS: ZONISAMIDE 100 MG CAPSULE 200 MG PO (08:26)
[2025-02-04] MEDS: DIMETHYL FUMARATE 240 MG CAPSULE.DR PO (08:27)
--- NOTE | 2025-02-04 11:47 | DCINST_ITS ---
Discharge Instructions DC O2, CPAP, BIPAP needs Home O2 Discharge instructions: No Dressing / Incision Discharge Activity: No Restrictions Follow Up Care Test Results: Test results from this visit will be discussed in further detail at your follow- up appointment, if applicable. Discharge Plan Admission Admit Date/Time: 02/01/25 12:37 Primary Reason for Your Visit: lightheadedness/dizziness Attending Provider: Raz Staples Primary Care Provider: Wisam Smions Consulting Providers: Speedy Bray; Fredrick Conrad; Candis Duncan; Breana Koenig; Ngoc Rodriguez Instructions Additional Instructions / Restrictions: Take pantoprazole twice daily indefinitely and sucralfate 1 g before meals and at night for 2 months. Discussed with cardiology and will discontinue Plavix but will prescribe a baby aspirin daily to prevent plaque buildup in your heart arteries. Follow-up with your PCP, cardiology and GI as needed. Discharge Orders/Prescriptions Prescriptions: New pantoprazole 40 mg Tablet,Delayed Release (Dr/Ec) 40 mg PO BID 90 Days Qty: 180 0RF sucralfate 1 gram tablet 1 g PO 4X/DAY 60 Days Qty: 240 0RF aspirin 81 mg tablet 81 mg PO DAILY 30 Days Qty: 30 2RF Continued tizanidine 2 mg capsule 2 mg PO QHS citalopram 40 mg tablet 40 mg PO DAILY dimethyl fumarate 240 mg capsule,delayed release(DR/EC) 240 mg PO BID zonisamide 100 mg capsule 300 mg PO QHS zonisamide 100 mg capsule 200 mg PO QDAY atorvastatin 80 mg tablet 80 mg PO QHS Qty: 90 3RF Discontinued clopidogrel [Plavix] 75 mg tablet 75 mg PO QDAY Qty: 90 3RF Referrals / Follow Up: Wisam Simons MD [Primary Care Provider, Family Practice] Fredrick Conrad DO [Med Staff - Active Staff, Gastroenterology] Disposition Disposition (needs filled in before D/C Order can be placed): Home, Self Care
--- NOTE | 2025-02-04 11:51 | PCM.DC.SUM ---
Providers Date of Admission: 02/01/25 Date of Discharge: 02/04/25 Primary Care Physician: Dr. Wisam Simons MD Consultations 02/01/25 15:02 Consult: Gastroenterology Routine Consulting Provider: [facility] Reason for Consult: GI bleed EMERGENT Consult: No MD Notified: Yes Date Notified: 02/01/25 Time Notified: 16:30 Method of Notification: Text Reason For Visit: STROKELIKE SYMPTOMS Diagnosis Discharge Diagnosis (1) Acute blood loss anemia: Status: Acute Code(s): D62 - Acute posthemorrhagic anemia (2) Upper GI bleed: Status: Acute Code(s): K92.2 - Gastrointestinal hemorrhage, unspecified Medications at Discharge Home Medications citalopram 40 mg tablet 40 mg PO DAILY depression 11/21/23 dimethyl fumarate 240 mg capsule,delayed release 240 mg PO BID ms 11/21/23 zonisamide 100 mg capsule 300 mg PO QHS seizures 11/21/23 zonisamide 100 mg capsule 200 mg PO QDAY seizures 04/01/24 tizanidine 2 mg capsule 2 mg PO QHS leg pain 08/03/24 atorvastatin 80 mg tablet 80 mg PO QHS cholesterol #90 tabs 01/18/25 aspirin 81 mg tablet 81 mg PO DAILY 30 days #30 tabs 02/04/25 pantoprazole 40 mg tablet,delayed release 40 mg PO BID 90 days #180 tabs 02/04/25 sucralfate 1 gram tablet 1 g PO 4X/DAY 60 days #240 tabs 02/04/25 Hospital Course Operations None Procedures EGD, EKG and - (CT brain, CTA head/neck) Summary of Care Provided Minutes Spent on Discharge: 37 Hospital Course: Patient is a 69-year-old male who presented to [facility] ED on 02/01/2025 with presyncopal symptoms. Hospital course as noted below. Patient discharged home in stable condition on 02/04. 1. Acute blood loss anemia suspected secondary to recurrent upper GI bleed – GI followed. Patient with reported history of ABLA secondary to upper GI bleed in May done in [place]. Per family, GI bleed was attributed to home plavix and ibuprofen use secondary to chronic pain. Family thought that Plavix was discontinued at that time but notably on recent PCP office note from 11/12 it was noted that he was still on Plavix. Hemoglobin 8.2 on admit, most recent baseline hemoglobin 10.2 in August per [facility] records. Had 2 large dark bowel movements in the ED and repeat H&H showed hemoglobin 7.5. Initiated on IV Protonix drip and transfused 1 unit of blood; repeat hemoglobin 8.5 but then down trended to 7.3 prior to EGD. EGD on 02/02 with chronic arthritis noted and nonbleeding duodenal ulcers with no stigmata of bleeding noted. No further dark bowel movements since EGD. Given IV fluids after EGD and hemoglobin mild downtrend to 6.8 on 02/03. Transfused 1 more unit of blood and repeat hemoglobin 8.1 on 02/04. Per GI, will treat with p.o. PPI twice daily indefinitely and sucralfate with meals for 2 months. 2. Acute urinary retention, resolved – Patient with difficulty urinating on arrival to the ICU and bladder scan showed approximately 300 cc of urine in the bladder. Given his presyncopal symptoms with getting out of bed in setting of acute anemia as above, Mckinney catheter placed. Mckinney catheter removed on the morning of 02/03 and patient had no issue with urine output. Resolved. 3. History of CAD with CABG, hyperlipidemia – Follows with outpatient cardiology. History of CABG x 2 in November 2023 at [facility]. Patient has been stable from a cardiac standpoint since that time. Continue home statin. Home Plavix held during hospitalization. Given cardiac history, will start aspirin 81 mg daily on discharge. 4. Multiple sclerosis – Follows with neurology at the [facility]. Was diagnosed back in 2018. No history of MS flares per patient report. Per PCP note from 11/12, patient is on dimethyl fumarate for this and has generally been doing well. He does have some balance issues and has had a few minor falls, but he regularly engages in physical therapy and is able to perform household task independently. Continue home medication. 5. Anxiety/depression – Stable. Continue home citalopram. 6. Seizure disorder – Stable. Continue home zonisamide. Total clinical time spent by myself addressing the patient's medical issues, reviewing all the data, and collaborating with patient's care team: 37 minutes. Physical Exam Const alert, oriented x3, no apparent distress and average body habitus Constitutional Narrative: Elderly male, mildly fatigued appearing, sitting back comfortably in bed, answering most questions appropriately but with some tangential speech noted, otherwise in no acute distress. Stable. General Appearance: cooperative and comfortable HEENT normocephalic, head/scalp atraumatic, hearing grossly normal bilaterally, nasal mucous membranes and turbinates normal and moist oral mucous membranes Eyes PERRL, EOMs intact bilaterally and conjunctivae normal Neck full ROM Chest inspection of chest normal Resp normal respiratory effort, normal air movement, no use of accessory muscles and clear to auscultation bilaterally Cardio regular rate, regular rhythm, no murmurs and peripheral pulses 2+ throughout GI normal to inspection, nondistended, normoactive bowel sounds, soft to palpation, non-tender and non-distended Back/Spine normal ROM Extremity normal to inspection, full ROM and no pedal edema Skin no rashes or lesions noted Neuro oriented x3, CN's II-XII intact bilaterally, moves all extremities and no focal motor deficits Coordination / Balance: [id number] test normal and [id number] test normal Motor Exam: strength 5/5 throughout Psych mental status grossly normal Weight / BMI Weight Weight: 79.9 kg Body Mass Index (BMI) 23.8 ABG / Lab / Microbiology Data 02/04/25 05:27 02/04/25 05:27 Laboratory: Laboratory Results - last 24 hr 02/01/25 13:24: Crossmatch See Detail 02/04/25 05:27: WBC 10.0, RBC 3.10 L, Hgb 8.1 L, Hct 26.0 L, MCV 83.9, MCH 26.1 L, MCHC 31.2 L, RDW Std Deviation 59.5 H, RDW Coeff of Micheal 19.7 H, Plt Count 264, MPV 10.9, Sodium 141, Potassium 3.8, Chloride 111 H, Carbon Dioxide 21.9, Anion Gap 8, BUN 15, Creatinine 0.80, Estim Creat Clear Calc 95.65, Est GFR (MDRD) Non-Af 96, BUN/Creatinine Ratio 18.2, Glucose 108 H, Calcium 8.3 Microbiology: Microbiology 02/01/25 13:24 Stool Stool Occult Blood (JG) - Final Occult Blood Positive D/C Instructions DC O2, CPAP, BIPAP Needs Home O2 Discharge instructions: No Meaningful Use Info Meaningful Use Meaningful Use Diagnoses (Choose all that apply): None applicable Discharge Plan Admission Admit Date/Time: 02/01/25 12:37 Primary Reason for Your Visit: lightheadedness/dizziness Attending Provider: Raz Staples Primary Care Provider: Wisam Simons Consulting Providers: Speedy Bray; Fredrick Conrad; Candis Duncan; Breana Koenig; Ngoc Rodriguez Instructions Additional Instructions / Restrictions: Take pantoprazole twice daily indefinitely and sucralfate 1 g before meals and at night for 2 months. Discussed with cardiology and will discontinue Plavix but will prescribe a baby aspirin daily to prevent plaque buildup in your heart arteries. Follow-up with your PCP, cardiology and GI as needed. Discharge Orders/Prescriptions Prescriptions: New pantoprazole 40 mg Tablet,Delayed Release (Dr/Ec) 40 mg PO BID 90 Days Qty: 180 0RF sucralfate 1 gram tablet 1 g PO 4X/DAY 60 Days Qty: 240 0RF aspirin 81 mg tablet 81 mg PO DAILY 30 Days Qty: 30 2RF Continued tizanidine 2 mg capsule 2 mg PO QHS citalopram 40 mg tablet 40 mg PO DAILY dimethyl fumarate 240 mg capsule,delayed release(DR/EC) 240 mg PO BID zonisamide 100 mg capsule 300 mg PO QHS zonisamide 100 mg capsule 200 mg PO QDAY atorvastatin 80 mg tablet 80 mg PO QHS Qty: 90 3RF Discontinued clopidogrel [Plavix] 75 mg tablet 75 mg PO QDAY Qty: 90 3RF Referrals / Follow Up: Wisam Simons MD [Primary Care Provider, Family Practice] Fredrick Conrad DO [Med Staff - Active Staff, Gastroenterology] Disposition Disposition (needs filled in before D/C Order can be placed): Home, Self Care Charges/Coding Visit Charges Inpatient E&M: 65018 Disch Hosp >30min
[2025-02-04 11:58] VITALS: BP 103/58; PULSE 71; RESP 18; TEMP 36.6; O2SAT 99
--- NOTE | 2025-02-04 12:13 | CASEMGMT ---
KINSEY MARIN NOTE: Discharge order is in. KINSEY CM to room. Pt sitting up in chair. Therapy just finishing working w/him and state no concerns or therapy needs. Pt denies having discharge needs or concerns. His will be taking him home. He is aware Rx's have been sent to [facility]. He would like present when nurse goes over discharge instructions. RNAlonzo, made aware. Belen HAMMONDSN KINSEY MARIN
[2025-02-04 12:42] VITALS: O2SAT 98
--- NOTE | 2025-02-04 12:42 | PHA.DC.MC.R ---
Pharmacy [facility] has performed discharge medication reconciliation and counseling for this patient. The patient's discharge medication list was reviewed for discrepancies and discrepancies were resolved. The patient was counseled on the following discharge medications and changes in medications for homegoing were reviewed. The Reason for Use, instructions for use, and potential side effects were reviewed for all new medications. The patient's questions regarding all of their medications were answered. 1. Pantoprazole 40 mg PO BID 2. Sucralfate 1 gram PO 4x/day 3. Aspirin 81 mg PO daily The patient was able to verbally demonstrate an understanding of their discharge medications. Medications at Discharge Home Medications citalopram 40 mg tablet 40 mg PO DAILY depression 11/21/23 dimethyl fumarate 240 mg capsule,delayed release 240 mg PO BID ms 11/21/23 zonisamide 100 mg capsule 300 mg PO QHS seizures 11/21/23 zonisamide 100 mg capsule 200 mg PO QDAY seizures 04/01/24 tizanidine 2 mg capsule 2 mg PO QHS leg pain 08/03/24 atorvastatin 80 mg tablet 80 mg PO QHS cholesterol #90 tabs 01/18/25 aspirin 81 mg tablet 81 mg PO DAILY 30 days #30 tabs 02/04/25 pantoprazole 40 mg tablet,delayed release 40 mg PO BID 90 days #180 tabs 02/04/25 sucralfate 1 gram tablet 1 g PO 4X/DAY 60 days #240 tabs 02/04/25
== END 2025-02-04 15:24 | disposition home or self-care (01) | DRG 384 ==
LOC: ED 11:42 → PCU 13:26 → ICU 15:17 → PCU 02-03 23:49
PROVIDERS: Internal Medicine Gastroenterology; Admitting Provider Hospitalist; Emergency Provider Emergency Medicine; PCP Family Medicine; Visit Provider Hospitalist
PROC: 0DJ08ZZ Inspection of Upper Intestinal Tract, Via Natural or Artificial Opening Endoscopic (ICD-10-PCS; CPT 43235; principal; 2025-02-02 15:55)
DX: K26.9 Duodenal ulcer, unspecified as acute or chronic, without hemorrhage or perforation (principal); D68.32 Hemorrhagic disorder due to extrinsic circulating anticoagulants; D62 Acute posthemorrhagic anemia; G40.909 Epilepsy, unspecified, not intractable, without status epilepticus; F32.A Depression, unspecified; I25.10 Atherosclerotic heart disease of native coronary artery without angina pectoris; K29.50 Unspecified chronic gastritis without bleeding; K44.9 Diaphragmatic hernia without obstruction or gangrene; F41.9 Anxiety disorder, unspecified; K31.89 Other diseases of stomach and duodenum; E78.5 Hyperlipidemia, unspecified; G35.D Multiple sclerosis, unspecified; R33.9 Retention of urine, unspecified; Z79.899 Other long term (current) drug therapy; Z79.02 Long term (current) use of antithrombotics/antiplatelets; Z95.1 Presence of aortocoronary bypass graft; Z87.891 Personal history of nicotine dependence
CPT/HCPCS: 36415; 70450; 70496; 70498; 80048; 82274; 82728; 82962; 83036; 83540; 83550; 84443; 84484; 85014; 85018; 85025; 85027; 85610; 85730; 86850; 86900; 86901; 88305; 88342; 93005; 94668; 94762; 97116; 97163; 97166; 97530; 99285; 99406; P9016; Q9967; A4216; J2405